=== PATIENT | female | born 1945 ===

== ENCOUNTER 2020-12-05 12:21 | Outpatient (REF) | payer MEDICARE, MEDICAID, SELFPAY ==
--- NOTE | ~2020-12-05 | XR_ITS ---
EXAMINATION: PELVIS AND LUMBAR SPINE X-RAY CLINICAL INFORMATION: Pain COMPARISON: None TECHNIQUE: One view of the pelvis and 3 views of the lumbar spine FINDINGS: Pelvis: Bone alignment is normal. No fracture or dislocation is seen. The joint spaces are normal. Soft tissues are normal. Lumbar spine: There is curvature of the mid lumbar spine to the left and lumbar sacral spine to the right. There is exaggerated lumbar lordosis. Bone alignment is otherwise normal. No fracture or dislocation is seen. There is degenerative disc disease at L5-S1. There is degenerative spondylosis at C3 L3-L4 and L4-L5. There is lower lumbar spine facet arthritis. There is evidence of atherosclerotic disease. XR/XR pelvis 1-2V IMPRESSION: Lumbar spine: Scoliosis and degenerative changes. Pelvis: Unremarkable exam.
--- NOTE | ~2020-12-05 | XR_ITS ---
EXAMINATION: BILATERAL HAND X-RAY CLINICAL INFORMATION: Pain COMPARISON: None TECHNIQUE: 3 views each hand FINDINGS: Left: Bone alignment is normal. No fracture or dislocation is seen. Joint spaces are normal. Soft tissues are normal. Right: Bone alignment is normal. No fracture or dislocation is seen. Joint spaces are normal. Soft tissues are normal. XR/XR hand RT min 3V IMPRESSION: Unremarkable exam.
--- NOTE | ~2020-12-05 | XR_ITS ---
EXAMINATION: BILATERAL HAND X-RAY CLINICAL INFORMATION: Pain COMPARISON: None TECHNIQUE: 3 views each hand FINDINGS: Left: Bone alignment is normal. No fracture or dislocation is seen. Joint spaces are normal. Soft tissues are normal. Right: Bone alignment is normal. No fracture or dislocation is seen. Joint spaces are normal. Soft tissues are normal. XR/XR hand LT min 3V IMPRESSION: Unremarkable exam.
--- NOTE | ~2020-12-05 | XR_ITS ---
EXAMINATION: PELVIS AND LUMBAR SPINE X-RAY CLINICAL INFORMATION: Pain COMPARISON: None TECHNIQUE: One view of the pelvis and 3 views of the lumbar spine FINDINGS: Pelvis: Bone alignment is normal. No fracture or dislocation is seen. The joint spaces are normal. Soft tissues are normal. Lumbar spine: There is curvature of the mid lumbar spine to the left and lumbar sacral spine to the right. There is exaggerated lumbar lordosis. Bone alignment is otherwise normal. No fracture or dislocation is seen. There is degenerative disc disease at L5-S1. There is degenerative spondylosis at C3 L3-L4 and L4-L5. There is lower lumbar spine facet arthritis. There is evidence of atherosclerotic disease. XR/XR lumbar spine 2-3V IMPRESSION: Lumbar spine: Scoliosis and degenerative changes. Pelvis: Unremarkable exam.
[2020-12-05 13:43] LABS: MANUAL DIFF FLAG NO
[2020-12-05 13:56] LABS: Basophils Percent Auto 0.3 % (0-2); Eosinophils Absolute Auto 0.2 X10*3/uL (0.0-0.4); Hematocrit 40.6 % (37-47); Imm Gran Abs Auto 0.01 X10*3/uL (0.00-0.03); Imm Gran Pct Auto 0.2 % (0.0-0.4); Lymphocytes Absolute Auto 1.6 X10*3/uL (1.2-4.9); Lymphocytes Percent Auto 28.3 % (20-40); Mean Corpuscular Hemoglobin 29.5 pg (27.0-33.0); Mean Corpuscular Volume 92.1 fL (80-98); Mean Platelet Volume 12.2 fL (9.4-12.3); Monocytes Absolute Auto 0.5 X10*3/uL (0.1-1.2); Neutrophils Absolute Auto 3.5 X10*3/uL (2.0-8.3); Neutrophils Percent Auto 60.2 % (45-73); Platelet Count 204 X10*3/uL (160-400); Red Blood Count 4.41 X10*6/uL (4.20-5.50); Red Cell Distribution Width 12.6 % (11.0-16.0); White Blood Count 5.8 X10*3/uL (4.8-10.8)
[2020-12-05 14:35] LABS: Alanine Aminotransferase 25 U/L (0-31); Albumin Level 4.2 g/dL (3.5-5.0); Alkaline Phosphatase 61 U/L (39-117); Anion Gap 8 (12-20); Aspartate Amino Transferase 25 U/L (5-31); Bilirubin Total 0.4 mg/dL (0.0-1.0); Blood Urea Nitrogen 11 mg/dL (9-16); C Reactive Protein 0.07 mg/dL (< or = 0.50); Calcium 9.6 mg/dL (8.4-10.2); Carbon Dioxide 32 mmol/L (22-29); Chloride 104 mmol/L (96-108); Estimated Glomerular Filt Rate > 60; Glucose Random 84 mg/dL (60-115); Potassium 4.1 mmol/L (3.3-5.1); Rheumatoid Factor < 15.0 IU/mL (<15.0); Sodium 140 mmol/L (135-145)
[2020-12-05 14:55] LABS: Erythrocyte Sedimentation Rate 7 MM/HR (0-20)
[2020-12-06 13:07] LABS: Cyclic Citrullinated Peptide <16 UNITS
[2020-12-08 15:36] LABS: IgA 202 mg/dL (70-320); IgG 1292 mg/dL (600-1540); IgM 70 mg/dL (50-300)
[2020-12-09 08:12] LABS: PES - Abn Protein Band 1 <0.2 g/dL (NONE DETECTED); Prot Elec - Albumin 4.2 g/dL (3.8-4.8); Prot Elec - Alpha1 0.3 g/dL (0.2-0.3); Prot Elec - Alpha2 0.7 g/dL (0.5-0.9); Prot Elec - Beta 1 0.4 g/dL (0.4-0.6); Prot Elec - Beta 2 0.3 g/dL (0.2-0.5); Prot Elec - Gamma 1.2 g/dL (0.8-1.7); Prot Elec - Total Protein 7.1 g/dL (6.1-8.1)
[2020-12-09 12:56] LABS: Vitamin D 25-OH, D2 <4 ng/mL; Vitamin D 25-OH, D3 31 ng/mL; Vitamin D 25-OH, Total 31 ng/mL (30-100)
== END 2020-12-05 12:22 | disposition home or self-care (01) ==
LOC: HO.LAB 12:21
PROVIDERS: PCP Internal Medicine; Referring Provider Internal Medicine; Visit Provider Student in an Organized Health Care Education/Training Program
DX: M25.50 Pain in unspecified joint (principal); M54.5 Low back pain
CPT/HCPCS: 36415; 72100; 72170; 73130; 80053; 82306; 82784; 84155; 84165; 85025; 85652; 86140; 86200; 86334; 86431; 99202

== ENCOUNTER → 2021-01-16 07:54 | Outpatient (BNVA) | payer MEDICARE, MEDICAID, SELFPAY | PROVIDERS: PCP Internal Medicine; Visit Provider Student in an Organized Health Care Education/Training Program | DX: M25.50 Pain in unspecified joint (principal); D47.2 Monoclonal gammopathy | CPT/HCPCS: 99212 ==

== ENCOUNTER 2021-02-21 14:54 | Outpatient (REF) | payer MEDICARE, MEDICAID, SELFPAY ==
--- NOTE | ~2021-02-21 | US_ITS ---
EXAMINATION: US EXTRACRANIAL CAROTID DUPLEX, BILATERAL CLINICAL INFORMATION: Atrial fibrillation, amnesia COMPARISON: None TECHNIQUE: Real-time ultrasound and Doppler techniques (integrating B-mode 2-D vascular images, Doppler spectral analysis and color-flow Doppler imaging) were utilized to interrogate the extracranial carotid arteries, the vertebral arteries and proximal subclavian arteries bilaterally. The degree of stenosis is determined by criteria similar to NASCET. FINDINGS: Right Side: 1. There is trace calcified atherosclerotic plaque seen in the bifurcation/proximal ICA region. 2. The common carotid artery PSV proximally is 51 cm/s and distally 58 cm/s. 3. The proximal internal carotid artery velocities are 60 cm/s systolic and 20 cm/s diastolic. 4. The proximal external carotid artery PSV is 99 cm/s. 5. The vertebral artery shows antegrade flow. 6. The subclavian artery waveforms are normal. Left Side: 1. There is no appreciable atherosclerotic plaque seen in the bifurcation/proximal ICA region. 2. The common carotid artery PSV proximally is 92 cm/s and distally 66 cm/s. 3. The proximal internal carotid artery velocities are 63 cm/s systolic and 22 cm/s diastolic. 4. The proximal external carotid artery PSV is 68 cm/s. 5. The vertebral artery shows antegrade flow. 6. The subclavian artery waveforms are normal. US/US carotid duplex BI IMPRESSION: 1. RIGHT: Minimal, non-hemodynamically significant stenosis of the proximal right internal carotid artery corresponding to a 0-49% stenosis by velocity criteria. 2. LEFT: Normal left internal carotid artery without atherosclerotic plaque or hemodynamically significant stenosis.
== END 2021-02-21 14:55 | disposition home or self-care (01) ==
LOC: HO.US 14:54
PROVIDERS: Visit Provider Internal Medicine
DX: I48.91 Unspecified atrial fibrillation (principal); R41.3 Other amnesia
CPT/HCPCS: 93880

== ENCOUNTER 2021-03-07 08:00 | Outpatient (REF) | payer MEDICARE, MEDICAID, SELFPAY ==
--- NOTE | ~2021-03-07 | US_ITS ---
EXAMINATION: US RETROPERITONEAL LIMITED (RENAL ONLY) CLINICAL INFORMATION: CKD, atrial fibrillation. COMPARISON: None TECHNIQUE: Routine boateng-scale imaging of kidneys was performed. In addition, Doppler imaging of kidneys was performed, as well. FINDINGS: RIGHT KIDNEY: 11.3 x 4.7 x 5.7 cm (SAG x AP x TRV). The kidney is normal in size, contour, and echogenicity. Renal cortical thickness is normal. No calculi or focal parenchymal lesions. No hydronephrosis. LEFT KIDNEY: 10.9 x 3.8 x 4.8 cm (SAG x AP x TRV). The kidney is normal in size, contour, and echogenicity. Renal cortical thickness is normal. No calculi or focal parenchymal lesions. No hydronephrosis. On Doppler imaging, Right Kidney: The proximal renal artery velocity measures 85 cm/s, mid segment measures 82 cm/s, and distal segment measures 100 cm/s. Renal aortic ratio measures 1.52. Average resistive index average measures 0.73. There is no suspicion for renal artery stenosis. Left Kidney: Peak systolic velocity left renal artery measures 129 cm/s, mid segment measures 107 cm/s, distal segment measures 183 cm/s. Renal aortic ratio measures 2.77. Average resistive index measures 0.73. The findings are equivocal for mild stenosis. Correlation with CT angiography can be performed. The renal veins are bilaterally patent. US/US renal doppler IMPRESSION: Normal renal ultrasound. Equivocal renal Doppler imaging of left kidney. Recommend CT angiogram of kidneys for further evaluation. There is no right renal artery stenosis seen. Normal patent renal veins.
--- NOTE | ~2021-03-07 | US_ITS ---
EXAMINATION: US RETROPERITONEAL LIMITED (RENAL ONLY) CLINICAL INFORMATION: CKD, atrial fibrillation. COMPARISON: None TECHNIQUE: Routine boateng-scale imaging of kidneys was performed. In addition, Doppler imaging of kidneys was performed, as well. FINDINGS: RIGHT KIDNEY: 11.3 x 4.7 x 5.7 cm (SAG x AP x TRV). The kidney is normal in size, contour, and echogenicity. Renal cortical thickness is normal. No calculi or focal parenchymal lesions. No hydronephrosis. LEFT KIDNEY: 10.9 x 3.8 x 4.8 cm (SAG x AP x TRV). The kidney is normal in size, contour, and echogenicity. Renal cortical thickness is normal. No calculi or focal parenchymal lesions. No hydronephrosis. On Doppler imaging, Right Kidney: The proximal renal artery velocity measures 85 cm/s, mid segment measures 82 cm/s, and distal segment measures 100 cm/s. Renal aortic ratio measures 1.52. Average resistive index average measures 0.73. There is no suspicion for renal artery stenosis. Left Kidney: Peak systolic velocity left renal artery measures 129 cm/s, mid segment measures 107 cm/s, distal segment measures 183 cm/s. Renal aortic ratio measures 2.77. Average resistive index measures 0.73. The findings are equivocal for mild stenosis. Correlation with CT angiography can be performed. The renal veins are bilaterally patent. US/US renal BI IMPRESSION: Normal renal ultrasound. Equivocal renal Doppler imaging of left kidney. Recommend CT angiogram of kidneys for further evaluation. There is no right renal artery stenosis seen. Normal patent renal veins.
== END 2021-03-07 08:01 | disposition home or self-care (01) ==
LOC: HO.US 08:00
PROVIDERS: Visit Provider Internal Medicine
DX: I48.91 Unspecified atrial fibrillation (principal); N18.31 Chronic kidney disease, stage 3a
CPT/HCPCS: 76775; 93975

== ENCOUNTER → 2021-07-09 08:56 | Outpatient (BNVA) | payer MEDICARE, SELFPAY | PROVIDERS: PCP Internal Medicine; Visit Provider Internal Medicine Pulmonary Disease | DX: R05.3 Chronic cough (principal); R06.00 Dyspnea, unspecified; R91.8 Other nonspecific abnormal finding of lung field; J84.9 Interstitial pulmonary disease, unspecified | CPT/HCPCS: 99202 ==

== ENCOUNTER 2021-07-11 08:38 | Outpatient (REF) | payer MEDICARE, SELFPAY ==
--- NOTE | 2021-07-11 17:24 | PFT_ITS ---
INDICATION: Dyspnea. SPIROMETRY: The FEV1 to FVC of 82% with an FEV1 of 1.85 L, which is 85% predicted and an FVC of 2.23 L, which is 78% predicted. No significant response to bronchodilators noted. Maximum voluntary ventilation 88% predicted. LUNG VOLUMES: Total lung capacity 82% predicted with expiratory reserve volume of 49% predicted. DIFFUSION CAPACITY: DLCO 73% predicted. COMPARISONS: PFTs from 2015. INTERPRETATION: No obstructive nor restrictive ventilatory defects identified. No significant response to bronchodilators noted. Normal maximum voluntary ventilation. Lung volumes are low normal. The patient does have a mild diffusion impairment. When compared to previous PFTs in 2016, the trend decrease in the FVC, significant decrease in the FEV1, trend decrease in the total lung capacity, and a significant decrease in the diffusion capacity. Clinical correlation warranted. MD SAEED Turner/MODKristal / [id number]
== END 2021-07-11 08:39 | disposition home or self-care (01) ==
LOC: HO.RESP 08:38
PROVIDERS: PCP Internal Medicine; Visit Provider Internal Medicine Pulmonary Disease
DX: R06.00 Dyspnea, unspecified (principal)
CPT/HCPCS: 94060; 94727; 94729

== ENCOUNTER 2021-07-18 10:54 | Outpatient (REF) | payer MEDICARE, SELFPAY ==
[2021-07-18 12:19] LABS: Alanine Aminotransferase 20 U/L (0-31); Albumin Level 4.1 g/dL (3.5-5.0); Alkaline Phosphatase 76 U/L (39-117); Anion Gap 10 (12-20); Aspartate Amino Transferase 22 U/L (5-31); Bilirubin Total 0.6 mg/dL (0.0-1.0); Blood Urea Nitrogen 13 mg/dL (9-16); Calcium 9.7 mg/dL (8.4-10.2); Carbon Dioxide 30 mmol/L (22-29); Chloride 105 mmol/L (96-108); Estimated Glomerular Filt Rate > 60; Glucose Random 89 mg/dL (60-115); Potassium 4.4 mmol/L (3.3-5.1); Sodium 141 mmol/L (135-145)
[2021-07-18 12:24] LABS: Thyroid Stimulating Hormone 1.76 uIU/mL (0.32-4.0)
[2021-07-18 12:36] LABS: Folate 12.4 ng/mL (> or = 4.0); Vitamin B12 423 pg/mL (200-900)
== END 2021-07-18 10:55 | disposition home or self-care (01) ==
LOC: HO.LAB 10:54
PROVIDERS: PCP Internal Medicine; Visit Provider Psychiatry & Neurology Neurology
DX: G31.84 Mild cognitive impairment of uncertain or unknown etiology (principal)
CPT/HCPCS: 36415; 80053; 82607; 82746; 84436; 84443

== ENCOUNTER 2021-08-01 09:31 | Outpatient (REF) | payer MEDICARE, SELFPAY ==
--- NOTE | ~2021-08-01 | CT_ITS ---
EXAMINATION: CT CHEST WITHOUT CONTRAST CLINICAL INFORMATION: Interstitial lung disease COMPARISON: Previous chest x-ray most recent September [address] March 2016 and abdominal and pelvic CT November 2017 TECHNIQUE: Multidetector volumetric CT imaging of the chest was done. Axial MIP volume rendering provided. Sagittal and coronal reformatted images were obtained. This CT examination was performed using dose optimization techniques as appropriate, variously including the following: *Automated exposure control *Adjustment of mA and/or kV according to patient size (this includes techniques or standardized protocols for targeted exams where dose is matched to indication/reason for exam; i.e. extremities or head) *Use of iterative reconstruction technique DLP: 137 mGy-cm FINDINGS: LUNGS: Exam is limited due to artifact from respiratory motion. There is biapical pleural and parenchymal scarring. There is a 3 mm peripheral or subpleural right upper lobe nodule adjacent to the minor fissure axial image 76 series 11 that is stable. There is a 4 mm left upper lobe nodule axial image 80 series 11 that is stable. There is a 4 mm calcified right lower lobe nodule axial image 88 series 11 that is stable. There is a right middle lobe nodule axial image 105 series 11 that is stable. There is a 5 mm right lower lobe nodule axial image 107 series 11 that is stable. There is scarring or subsegmental atelectasis at the lung bases. No evidence of interstitial lung disease, emphysema or bronchiectasis is seen. No endobronchial or endotracheal lesion is seen. MEDIASTINUM: The heart does not appear enlarged. The thoracic aorta is calcified. The ascending thoracic aorta is upper normal in size measuring 4 cm.. There is coronary artery calcification. There is no pericardial effusion. There are no enlarged hilar or mediastinal lymph nodes. PLEURA: There is no pleural effusion. No pleural mass or thickening. AXILLA: No lymphadenopathy. UPPER ABDOMEN: There is a small 7 mm low-attenuation lesion high in the dome of the right lobe of the liver axial image 39 series 8. This is unchanged from CT of the abdomen and pelvis November 2017 and probably represents a cyst. Images through the upper abdomen are otherwise unremarkable. OSSEOUS STRUCTURES: There are degenerative changes of the spine. There is mild curvature of the lower thoracic and upper lumbar spine to the left. CT/CT chest wo con IMPRESSION: Limited exam due to artifact from respiratory motion. Stable small calcified and noncalcified pulmonary nodules from November 2017. Subsegmental atelectasis at the lung bases. No evidence of interstitial lung disease.
== END 2021-08-01 09:32 | disposition home or self-care (01) ==
LOC: HO.CT 09:31
PROVIDERS: PCP Internal Medicine; Visit Provider Internal Medicine Pulmonary Disease
DX: J84.9 Interstitial pulmonary disease, unspecified (principal)
CPT/HCPCS: 71250

== ENCOUNTER → 2021-08-05 08:50 | Outpatient (BNVA) | payer MEDICARE, SELFPAY | PROVIDERS: PCP Internal Medicine; Visit Provider Internal Medicine Pulmonary Disease | DX: R06.00 Dyspnea, unspecified (principal); R05.3 Chronic cough | CPT/HCPCS: 99212 ==

== ENCOUNTER 2021-08-12 01:15 | Emergency (ER) | payer MEDICARE, MEDICAID, SELFPAY ==
--- NOTE | ~2021-08-12 | XR_ITS ---
EXAMINATION: XR CHEST CLINICAL INFORMATION: Shortness of breath COMPARISON: 09/04/2019 TECHNIQUE: 2 views of the chest were obtained. FINDINGS: The lungs are well expanded. No edema or effusion. Minimal opacity seen at the peripheral left base.. No pneumothorax. The cardiomediastinal silhouette is within normal limits of size with a calcified aorta. No acute osseous abnormality. XR/XR chest 2V IMPRESSION: Minimal peripheral left basilar opacity which could be atelectasis or pneumonia.
[2021-08-12 01:18] VITALS: BP 194/85; PULSE 85; RESP 22; TEMP 36.8; O2SAT 97; BMI 26.7
--- NOTE | 2021-08-12 01:53 | ECG_ITS ---
Test Reason : SOB Blood Pressure : / mmHG Vent. Rate : 078 BPM Atrial Rate : 078 BPM P-R Int : 188 ms QRS Dur : 090 ms QT Int : 434 ms P-R-T Axes : 061 039 054 degrees QTc Int : 494 ms Normal sinus rhythm Possible Left atrial enlargement RSR' or QR pattern in V1 suggests right ventricular conduction delay Abnormal ECG When compared with ECG of 04-SEP-2019 17:15, No significant change was found Referred By: Jazmin Apple Electronically Signed By:GREG HOUSTON MD
--- NOTE | 2021-08-12 01:54 | ED.SOB ---
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 Mode of arrival: ambulatory Limitations: no limitations History of Present Illness MD elicited complaint: shortness of breath, cough and asthma attack Pertinent past history: asthma and pneumonia Onset (ago): day(s) (4) Context: other (treated with zpak 08/11 by process development technician - took her first dose) Timing: progressively worsening Severity: moderate Exacerbating factors: exertion and coughing Relieving factors: bronchodilators Known history of: asthma Associated symptoms: fever, cough and wheezing Treatment prior to arrival: bronchodilator and other (antibiotic) Related Data Home Medications Medication Instructions Recorded Confirmed aspirin 81 mg tablet,delayed 81 mg PO DAILY 12/05/20 07/31/21 release (Enteric Coated Aspirin) cholecalciferol (vitamin D3) 25 25 mcg PO DAILY 12/05/20 07/31/21 mcg (1,000 unit) capsule diclofenac sodium 75 mg 75 mg PO BID 12/05/20 07/31/21 tablet,delayed release metoprolol succinate 50 mg 50 mg PO DAILY 12/05/20 07/31/21 tablet,extended release 24 hr apixaban 5 mg tablet (Eliquis) 5 mg PO BID 01/30/21 07/31/21 Previous Rx's Medication Instructions Recorded fluticasone furoate 200 1 inh INHALATION DAILY 30 Days #1 08/05/21 mcg-vilanterol 25 mcg/dose ea inhalation powder (Breo Ellipta) ipratropium 0.5 mg-albuterol 3 mg 3 ml INHALATION Q4-6H PRN 30 Days 08/05/21 (2.5 mg base)/3 mL nebulization #270 ml soln azithromycin 250 mg tablet See Rx Instructions PO .COMPLEX 5 08/11/21 Days #6 tab albuterol sulfate 2.5 mg (3 mL) INHALATION Q4-6H PRN 08/12/21 #75 ml amoxicillin 875 mg-potassium 1 tab PO BID #14 tab 08/12/21 clavulanate 125 mg tablet (Augmentin) codeine 6.3 mg-guaifenesin 100 8 ml PO Q6H PRN #473 ml 08/12/21 mg/5 mL oral liquid famotidine 20 mg tablet (Pepcid) 20 mg PO DAILY 10 Days #10 tab 08/12/21 prednisone 20 mg tablet 40 mg PO DAILY 5 Days #10 tab 08/12/21 Allergies Allergy/AdvReac Type Severity Reaction Status Date / Time acetaminophen [From Percocet] Allergy Intermediate Agitated Verified 08/05/21 09:05 oxycodone [From Percocet] Allergy Intermediate Agitated Verified 08/05/21 09:05 Review of Systems Review of Systems: Constitutional : pos Fever, pos Chills, pos fatigue ENT/Mouth : No Hoarseness, No sore throat, No Rhinorrhea Eyes: No Redness, No Discharge, No Vision Changes Cardiovascular : No Chest Pain, positive SOB, positive Dyspnea on Exertion, No Edema Respiratory : positive Cough, No Sputum, positive Wheezing, Gastrointestinal : No Nausea, No Vomiting, No Diarrhea, No abdominal Pain Genitourinary : No Dysuria, No Hematuria Musculoskeletal : No joint pain, No Myalgias Skin : No rash Neuro : No Weakness, No Numbness, No Headache Psych : No anxiety, depression Heme/Lymph: No Bruising, No Bleeding Endocrine : No Polyuria, No Polydipsia All other systems reviewed and are negative [facility] Past Medical History Attestation statement: The following information was validated with the patient. Medical History Abdominal hyperesthesia Dyspepsia GERD (gastroesophageal reflux disease) HTN (hypertension) IBS (irritable bowel syndrome) Osteoarthritis of lumbar spine Scoliosis Surgical History H/O bilateral breast reduction surgery H/O section H/O oophorectomy Hx of hysterectomy Family History Family History Son HTN (hypertension) Social History Social History (Updated 08/12/21 @ 02:09 by Jazmin Apple DO) Alcohol intake: never Patient Tobacco Use Status: Never used Tobacco Advance Directives: No Physical Exam Vital Signs: Vital Signs: Last Vital Signs Temp 98.2 F 08/12/21 01:18 Pulse 92 08/12/21 02:58 Resp 17 08/12/21 02:58 BP 174/77 H 08/12/21 02:58 Pulse Ox 94 08/12/21 02:58 Body Mass Index 26.7 Appearance: Alert. Oriented X3. No acute distress. Eyes: Pupils equal, round and reactive to light. ENT: Pharynx normal. Neck: Normal inspection. Neck supple. CVS: Normal heart rate and rhythm. Pulses normal. Respiratory: No respiratory distress. Breath sounds decreased with diffuse mild end exp wheezes noted Abdomen: Soft and non-tender. Skin: Skin warm and dry. Normal skin color. Normal skin turgor. Extremities: No lower extremity edema. No calf ttp Neuro: Oriented X 3. No motor deficit. No sensory deficit. Course Course Course Narrative: overall lung sounds improved - repeat 2.5mg neb ordered, cough is bothering her can tolerate codeine will try robitussing AC no hypoxia feels better wants to go home I did offer admission but she refused MDM - SOB/Dyspnea MDM Narrative Medical decision making narrative: 75 yo female with hx of ILD, arthralgia c/o 4 days of cough, fevers, weakness - started on zpak yesterday by her process development technician - states she has been taking one neb treatment a day but ran out of her alb liquid yesterday, is not on steroids. At this time will obtain labs, CXR shows likely LLL pneumonia - IV ceftriaxone, cultures, lactic acid, PCR panel of flu/rsv/covid. Dispo per results and improvement Lab Data Result diagrams: 08/12/21 02:27 08/12/21 02:27 Labs: Lab Results 08/12/21 08/12/21 08/12/21 Range/Units 02:27 02:27 02:27 WBC 3.9 L (4.8-10.8) X10*3/uL RBC 4.43 (4.20-5.50) X10*6/uL Hgb 13.2 (12.0-16.0) g/dl Hct 41.4 (37.0-47.0) % MCV 93.5 (80.0-98.0) fL MCH 29.8 (27.0-33.0) pg MCHC 31.9 (31.0-35.0) g/dl RDW 12.8 (11.0-16.0) % Plt Count 185 (160-400) X10*3/uL MPV 11.3 (9.4-12.3) fL Immature Gran % (Auto) 0.3 (0.0-0.4) % Neut % (Auto) 58.7 (45-73) % Lymph % (Auto) 19.8 L (20-40) % [place] % (Auto) 14.8 H (2-11) % Eos % (Auto) 6.1 H (0-4) % Baso % (Auto) 0.3 (0-2) % Lymph # (Auto) 0.8 L (1.2-4.9) X10*3/uL [place] # (Auto) 0.6 (0.1-1.2) X10*3/uL Eos # (Auto) 0.2 (0.0-0.4) X10*3/uL Baso # (Auto) 0.0 (0.0-0.2) X10*3/uL Abs Immat Gran (auto) 0.01 (0.00-0.03) X10*3/uL Absolute Neuts (auto) 2.3 (2.0-8.3) x10*3/uL Absolute Nucleated RBC 0.000 (0.0-0.012) X10*3/uL Nucleated RBC % (auto) 0.0 (0.0-0.2) /100WBC Sodium 141 (135-145) mmol/L Potassium 4.3 (3.3-5.1) mmol/L Chloride 107 (96-108) mmol/L Carbon Dioxide 25 (22-29) mmol/L Anion Gap 13 (12-20) BUN 13 (9-16) mg/dL Creatinine 0.73 (0.5-1.4) mg/dL Estim Creat Clear Calc 66.2 Estimated GFR > 60 Random Glucose 94 (60-115) mg/dL Lactic Acid (0.5-2.0) mmol/L Calcium 9.0 (8.4-10.2) mg/dL Total Bilirubin 0.3 (0.0-1.0) mg/dL AST 33 H (5-31) U/L ALT 26 (0-31) U/L Alkaline Phosphatase 77 (39-117) U/L Total Protein 7.5 (6.5-8.0) g/dL Albumin 4.2 (3.5-5.0) g/dL Influenza Type A (PCR) NEGATIVE (Negative) Influenza Type B (PCR) NEGATIVE (Negative) RSV RNA Qual (PCR) NEGATIVE (Negative) SARS-CoV-2 RNA (RT-PCR) NEGATIVE (Negative) 08/12/21 Range/Units 02:27 WBC (4.8-10.8) X10*3/uL RBC (4.20-5.50) X10*6/uL Hgb (12.0-16.0) g/dl Hct (37.0-47.0) % MCV (80.0-98.0) fL MCH (27.0-33.0) pg MCHC (31.0-35.0) g/dl RDW (11.0-16.0) % Plt Count (160-400) X10*3/uL MPV (9.4-12.3) fL Immature Gran % (Auto) (0.0-0.4) % Neut % (Auto) (45-73) % Lymph % (Auto) (20-40) % [place] % (Auto) (2-11) % Eos % (Auto) (0-4) % Baso % (Auto) (0-2) % Lymph # (Auto) (1.2-4.9) X10*3/uL [place] # (Auto) (0.1-1.2) X10*3/uL Eos # (Auto) (0.0-0.4) X10*3/uL Baso # (Auto) (0.0-0.2) X10*3/uL Abs Immat Gran (auto) (0.00-0.03) X10*3/uL Absolute Neuts (auto) (2.0-8.3) x10*3/uL Absolute Nucleated RBC (0.0-0.012) X10*3/uL Nucleated RBC % (auto) (0.0-0.2) /100WBC Sodium (135-145) mmol/L Potassium (3.3-5.1) mmol/L Chloride (96-108) mmol/L Carbon Dioxide (22-29) mmol/L Anion Gap (12-20) BUN (9-16) mg/dL Creatinine (0.5-1.4) mg/dL Estim Creat Clear Calc Estimated GFR Random Glucose (60-115) mg/dL Lactic Acid 0.8 (0.5-2.0) mmol/L Calcium (8.4-10.2) mg/dL Total Bilirubin (0.0-1.0) mg/dL AST (5-31) U/L ALT (0-31) U/L Alkaline Phosphatase (39-117) U/L Total Protein (6.5-8.0) g/dL Albumin (3.5-5.0) g/dL Influenza Type A (PCR) (Negative) Influenza Type B (PCR) (Negative) RSV RNA Qual (PCR) (Negative) SARS-CoV-2 RNA (RT-PCR) (Negative) ECG Data Attestation: I personally reviewed and interpreted this ECG as follows: ECG interpretation date: 08/12/21 ECG interpretation time: 02:26 Interpretation: Rate: 78 Rhythm: NSR [place]: normal Normal P waves. Normal GISSELL. Normal QRS complex. ST T wave : no DION, normal qTC: normal prior studies: no acute ischemia The study has been interpreted contemporaneously by me. . Discharge Plan Discharge Clinical Impression: Asthma with exacerbation Qualifiers: Asthma severity: moderate Asthma persistence: persistent Qualified Code(s): J45.41 - Moderate persistent asthma with (acute) exacerbation Community acquired pneumonia Qualifiers: Laterality: left Lung location: lower lobe of lung Qualified Code(s): J18.9 - Pneumonia, unspecified organism Patient Disposition: Home, Self-Care Instructions: Asthma (ED), Pneumonia (ED) Additional Instructions: return to ED for any worsening symptoms or concerns ALSO CONTINUE ZPAK Prescriptions: New codeine-guaifenesin 6.3-100 mg/5 mL liquid 8 ml PO Q6H PRN (Reason: cough) Qty: 473 RF: 0 albuterol sulfate 2.5 mg /3 mL (0.083 %) solution for nebulization 2.5 mg inhalation Q4-6H PRN (Reason: bronchospasm) Qty: 75 RF: 0 prednisone 20 mg tablet 40 mg PO DAILY 5 Days Qty: 10 RF: 0 famotidine [Pepcid] 20 mg tablet 20 mg PO DAILY 10 Days Qty: 10 RF: 0 amoxicillin-pot clavulanate [Augmentin] 875-125 mg tablet 1 tab PO BID Qty: 14 RF: 0 No Action azithromycin 250 mg tablet See Rx Instructions PO .COMPLEX 5 Days Qty: 6 RF: 0 Eliquis 5 mg Tablet 5 mg PO BID RF: 0 cholecalciferol (vitamin D3) 25 mcg (1,000 unit) capsule 25 mcg PO DAILY RF: 0 diclofenac sodium 75 mg tablet,delayed release (DR/EC) 75 mg PO BID RF: 0 metoprolol succinate 50 mg tablet extended release 24 hr 50 mg PO DAILY RF: 0 aspirin [Enteric Coated Aspirin] 81 mg tablet,delayed release (DR/EC) 81 mg PO DAILY RF: 0 ipratropium-albuterol 0.5 mg-3 mg(2.5 mg base)/3 mL solution for nebulization 3 ml inhalation Q4-6H PRN (Reason: wheezing) 30 Days Qty: 270 RF: 6 Breo Ellipta 200-25 mcg/dose blister with device 1 inh inhalation DAILY 30 Days Qty: 1 RF: 6 Referrals: Yeny Calderon MD [Primary Care Provider] - 2 days (if not better) Print Language: Omani
[2021-08-12] MEDS: Albuterol Sulfate (0.083%) 2.5 MG/3 ML VIAL.NEB 5 MG INHALE (02:23)
[2021-08-12 02:27] VITALS: PULSE 85; O2SAT 97
[2021-08-12 02:33] LABS: MANUAL DIFF FLAG NO
[2021-08-12 02:34] LABS: Basophils Percent Auto 0.3 % (0-2); Eosinophils Absolute Auto 0.2 X10*3/uL (0.0-0.4); Eosinophils Percent Auto 6.1 % (0-4); Hematocrit 41.4 % (37.0-47.0); Hemoglobin 13.2 g/dl (12.0-16.0); Imm Gran Abs Auto 0.01 X10*3/uL (0.00-0.03); Imm Gran Pct Auto 0.3 % (0.0-0.4); Lymphocytes Absolute Auto 0.8 X10*3/uL (1.2-4.9); Lymphocytes Percent Auto 19.8 % (20-40); Mean Corpuscular HGB Conc 31.9 g/dl (31.0-35.0); Mean Corpuscular Hemoglobin 29.8 pg (27.0-33.0); Mean Corpuscular Volume 93.5 fL (80.0-98.0); Mean Platelet Volume 11.3 fL (9.4-12.3); Monocytes Absolute Auto 0.6 X10*3/uL (0.1-1.2); Monocytes Percent Auto 14.8 % (2-11); Neutrophils Absolute Auto 2.3 x10*3/uL (2.0-8.3); Neutrophils Percent Auto 58.7 % (45-73); Platelet Count 185 X10*3/uL (160-400); Red Blood Count 4.43 X10*6/uL (4.20-5.50); Red Cell Distribution Width 12.8 % (11.0-16.0); White Blood Count 3.9 X10*3/uL (4.8-10.8)
[2021-08-12] MEDS: cefTRIAXone sodium 1 GM in 0.9 % Sodium Chloride 50 ML IV (02:37)
[2021-08-12] MEDS: methylPREDNISolone Sod Succ 125 MG/2 ML VIAL IVPUSH (02:38)
[2021-08-12] MEDS: Benzonatate 100 MG CAPSULE PO (02:38)
[2021-08-12] MEDS: 0.9 % Sodium Chloride 500 ML IV (02:39)
--- NOTE | 2021-08-12 02:46 | PC.NURSE ---
first set of BC obtained, IV abx running while obtaining second set of BC
[2021-08-12 02:58] VITALS: BP 174/77; PULSE 92; RESP 17; O2SAT 94
[2021-08-12 02:58] LABS: Lactic Acid 0.8 mmol/L (0.5-2.0)
[2021-08-12 03:09] LABS: Alanine Aminotransferase 26 U/L (0-31); Albumin Level 4.2 g/dL (3.5-5.0); Alkaline Phosphatase 77 U/L (39-117); Anion Gap 13 (12-20); Aspartate Amino Transferase 33 U/L (5-31); Bilirubin Total 0.3 mg/dL (0.0-1.0); Blood Urea Nitrogen 13 mg/dL (9-16); Carbon Dioxide 25 mmol/L (22-29); Chloride 107 mmol/L (96-108); Creatinine Clr Calc Pharmacy 66.2; Estimated Glomerular Filt Rate > 60; Glucose Random 94 mg/dL (60-115); Potassium 4.3 mmol/L (3.3-5.1); Sodium 141 mmol/L (135-145); Total Protein 7.5 g/dL (6.5-8.0)
[2021-08-12 03:12] LABS: Influenza A PCR NEGATIVE (Negative); Influenza B PCR NEGATIVE (Negative); Resp Syncy Virus RNA Qual PCR NEGATIVE (Negative); SARS COV2 PCR INHOUSE NEGATIVE (Negative)
[2021-08-12] MEDS: Albuterol Sulfate (0.083%) 2.5 MG/3 ML VIAL.NEB INHALE (03:38)
[2021-08-12 03:39] VITALS: O2SAT 97
[2021-08-12] MEDS: guaiFEN/Codeine SF 200/20/10ML 10 ML LIQUID 5 ML PO (03:47)
== END 2021-08-12 05:02 | disposition home or self-care (01) ==
PROVIDERS: Emergency Provider Emergency Medicine; PCP Internal Medicine
DX: J45.41 Moderate persistent asthma with (acute) exacerbation (principal); J18.9 Pneumonia, unspecified organism; I48.91 Unspecified atrial fibrillation; Z20.822 Contact with and (suspected) exposure to COVID-19
CPT/HCPCS: 0241U; 36415; 71046; 80053; 83605; 85025; 87040; 93005; 94640; 96365; 96375; 99284; J0696; J2930

== ENCOUNTER 2021-08-13 10:22 | Outpatient (REF) | payer MEDICARE, MEDICAID, SELFPAY ==
--- NOTE | ~2021-08-13 | MR_ITS ---
MRI OF THE BRAIN WITHOUT IV CONTRAST INDICATION: Amnesia. COMPARISON: None available. TECHNIQUE: Multiplanar multisequence MR imaging of the brain was obtained without IV contrast. FINDINGS: There is a small acute infarct within the right cerebellar hemisphere. There are extensive T2 signal changes throughout the supratentorial white matter, possibly advanced chronic microangiopathy though nonspecific. Chronic lacunar infarct within the right jose j. No mass effect and no hemorrhagic transformation. There is no hydrocephalus, extra-axial surface collection, or herniation. The major flow voids at the skull base are preserved. The midline structures are normal. The cerebellar tonsils are normally positioned. The craniocervical junction is normal. Osseous marrow signal intensity is homogenous. The visualized soft tissues are unremarkable. MR/MR head/brain wo con IMPRESSION: - There is a small acute infarct within the right cerebellar hemisphere. No mass effect and no hemorrhagic transformation. - There are extensive T2 signal changes throughout the supratentorial white matter, possibly advanced chronic microangiopathy though nonspecific. Chronic lacunar infarct within the right jose j. Findings discussed with Dr. Quiñonez at 11:41 AM on August 13, 2021. The patient will be transferred directly to the emergency department following this exam.
== END 2021-08-13 10:23 | disposition home or self-care (01) ==
LOC: HO.MRI 10:22
PROVIDERS: Visit Provider Internal Medicine
DX: R41.3 Other amnesia (principal)
CPT/HCPCS: 70551

== ENCOUNTER 2021-08-13 12:07 | Inpatient (IN) | payer MEDICARE, MEDICAID, SELFPAY ==
--- NOTE | ~2021-08-13 | CT_ITS ---
EXAMINATION: CT ANGIOGRAM OF THE HEAD CT ANGIOGRAM OF THE NECK CLINICAL INFORMATION: Stroke. COMPARISON: MRI scan of the brain 08/13/2021. CT scan of the chest 08/01/2021. TECHNIQUE: Test bolus series followed by intravenous administration 70 mL of Omnipaque 350. Helical imaging was performed in the axial plane from the mediastinum to the skull vertex. A delayed CT scan of the head was obtained. The degree of stenosis is based off NASCET criteria. The data was processed at the computer technologist workstation for generation of MIP images. Three-dimensional volume rendered reformatted images were also generated at an offline 3-D workstation. This CT examination was performed using dose optimization techniques as appropriate, variously including the following: *Automated exposure control *Adjustment of mA and/or kV according to patient size (this includes techniques or standardized protocols for targeted exams where dose is matched to indication/reason for exam; i.e. extremities or head) *Use of iterative reconstruction technique DLP: 1553 mGy-cm. FINDINGS: CT Head: There is no evidence of acute intracranial hemorrhage or territorial infarction. No abnormal mass-effect or midline shift is seen. Waterman to white matter differentiation is well preserved. No extra-axial fluid collections are identified. There is no abnormal enhancement. There is mild commensurate prominence the ventricles and sulci consistent with diffuse volume loss. There are relatively extensive areas of low-attenuation the periventricular and subcortical white matter, corresponding to hyperintense FLAIR signal in the prior study and consistent with chronic microvascular ischemic changes. There is an area of low-attenuation in the right cerebellar hemisphere posterolaterally, corresponding to the acute infarct seen on the MRI scan. A chronic infarct is redemonstrated in the right jose j. The osseous structures and soft tissues are normal the mastoid air cells are well-aerated. There is mild mucoperiosteal thickening in the left ethmoid and maxillary sinuses. CTA Neck: There is a four-vessel aortic arch, and the left vertebral artery arises directly off the aorta. There are atheromatous calcifications of the aorta and at the origins of the bilateral subclavian arteries, which are patent. The common carotid arteries are patent bilaterally. The right common carotid artery is slightly tortuous. There are no significant atheromatous calcifications of the carotid bifurcations. The cervical internal carotid arteries are patent bilaterally. The distal left cervical internal carotid artery is tortuous and mildly ectatic without a discrete aneurysm. The origins of the vertebral arteries are seen bilaterally. Both vertebral arteries are patent throughout their cervical course extending intradurally. The right vertebral artery is dominant Nonvascular: There is an area of hazy opacity in the right upper lobe, which may be atelectatic, and was not visualized on prior imaging. Multiple small nodules are better visualized on the prior study. There is biapical pleural parenchymal scarring. CTA Head: The intracranial internal carotid arteries and their bifurcations appear normal. The middle and anterior cerebral arteries bilaterally demonstrate normal caliber with no evidence of focal stenosis, aneurysm or vascular malformation. There is mild ectasia of an area of the right pericallosal artery (image 50/190, series 13), without a focal aneurysm. There is normal arborization of the middle cerebral artery branches. The anterior communicating artery is normal. In the posterior circulation, the left vertebral artery is dominant. The vertebral arteries intradurally have uniform caliber. The basilar artery appears normal. There are origins of the posterior cerebral arteries bilaterally. There is decreased flow from the distal right P2/P3 segments of the right posterior cerebral artery. The venous sinuses opacify normally. CT/CT angio head neck stroke IMPRESSION: CT head and neck: 1. There are scattered areas of low-attenuation in the periventricular and subcortical white matter, consistent with chronic microvascular ischemic changes. More focal infarcts are seen in the right jose j and right cerebellum. There are no large territorial infarcts or areas of acute hemorrhage. 2. There are no masses or areas of abnormal enhancement. 3. There is a patchy opacity in the right upper lobe, not seen on the most recent scan of the chest, and may be atelectatic. The previously described lung nodules are better demonstrated on the prior study. CTA head and neck: 1. There is a four-vessel aortic arch, a normal variant. 2. There are no flow-limiting stenoses or significant atheromatous calcification. 3. Intracranially there are no aneurysms or vascular malformations. 4. There are origins the bilateral posterior cerebral arteries. There is cutoff of the distal right posterior P2/P3 segments of the right posterior cerebral artery. The left posterior cerebral artery there is patent. This critical result was discussed with Kyaw Garcia MD by telephone on 08/14/2021 at 9:15 AM and it was ascertained that the content and urgency of the report was understood at the time of direct communication.
[2021-08-13 12:11] VITALS: BP 158/80; PULSE 98; RESP 18; TEMP 36.7; O2SAT 98; BMI 26.7
--- NOTE | 2021-08-13 12:11 | ECG_ITS ---
Test Reason : general medicine Blood Pressure : / mmHG Vent. Rate : 089 BPM Atrial Rate : 089 BPM P-R Int : 174 ms QRS Dur : 092 ms QT Int : 400 ms P-R-T Axes : 051 016 032 degrees QTc Int : 486 ms Normal sinus rhythm Possible Left atrial enlargement Incomplete right bundle branch block Borderline ECG When compared with ECG of 12-AUG-2021 02:21, No significant change was found Referred By: Bony Silva Electronically Signed By:GREG HOUSTON MD
--- NOTE | 2021-08-13 12:15 | ED_ITS ---
HPI - General Adult General Chief complaint: General Medical Stated complaint: Stroke? Time Seen by Provider: 08/13/21 12:11 Source: patient Mode of arrival: ambulatory Limitations: no limitations History of Present Illness HPI narrative: Sent to the Ed because abnormal outpatient MRI ,ordered by PCP because memory loss,MRI showed small cute infart Rt cerebellr hemisphere,sent to the Ed for eval Onset (ago): unknown Location: head Radiation: non-radiation Severity: moderate Exacerbating factors: none Associated symptoms: denies other symptoms Related Data Home Medications Medication Instructions Recorded Confirmed aspirin 81 mg tablet,delayed 81 mg PO DAILY 12/05/20 07/31/21 release (Enteric Coated Aspirin) cholecalciferol (vitamin D3) 25 25 mcg PO DAILY 12/05/20 07/31/21 mcg (1,000 unit) capsule diclofenac sodium 75 mg 75 mg PO BID 12/05/20 07/31/21 tablet,delayed release metoprolol succinate 50 mg 50 mg PO DAILY 12/05/20 07/31/21 tablet,extended release 24 hr apixaban 5 mg tablet (Eliquis) 5 mg PO BID 01/30/21 07/31/21 Previous Rx's Medication Instructions Recorded fluticasone furoate 200 1 inh INHALATION DAILY 30 Days #1 08/05/21 mcg-vilanterol 25 mcg/dose ea inhalation powder (Breo Ellipta) ipratropium 0.5 mg-albuterol 3 mg 3 ml INHALATION Q4-6H PRN 30 Days 08/05/21 (2.5 mg base)/3 mL nebulization #270 ml soln azithromycin 250 mg tablet See Rx Instructions PO .COMPLEX 5 08/11/21 Days #6 tab albuterol sulfate 2.5 mg (3 mL) INHALATION Q4-6H PRN 08/12/21 #75 ml amoxicillin 875 mg-potassium 1 tab PO BID #14 tab 08/12/21 clavulanate 125 mg tablet (Augmentin) codeine 6.3 mg-guaifenesin 100 8 ml PO Q6H PRN #473 ml 08/12/21 mg/5 mL oral liquid famotidine 20 mg tablet (Pepcid) 20 mg PO DAILY 10 Days #10 tab 08/12/21 prednisone 20 mg tablet 40 mg PO DAILY 5 Days #10 tab 08/12/21 Allergies Allergy/AdvReac Type Severity Reaction Status Date / Time acetaminophen [From Percocet] Allergy Intermediate Agitated Verified 08/05/21 09:05 oxycodone [From Percocet] Allergy Intermediate Agitated Verified 08/05/21 09:05 Review of Systems Review of Systems: Yes all other systems are reviewed and are negative Constitutional: Constitutional: Denies weakness Cardiovascular: Cardiovascular: Denies lightheadedness and Denies Loss of Consciousness Respiratory: Respiratory: Denies no additional respiratory complaints Gastrointestinal: Gastrointestinal: Denies diarrhea Genitourinary: Genitourinary: Reports no additional female genitourinary complaints Neurologic: Denies convulsions, Denies seizure-like activity, Denies Sensory deficit (Neuro) and Denies weakness Psychiatric: Psychiatric: Reports no additional psychiatric complaints [facility] Past Medical History Medical History Abdominal hyperesthesia Dyspepsia GERD (gastroesophageal reflux disease) HTN (hypertension) IBS (irritable bowel syndrome) Osteoarthritis of lumbar spine Scoliosis Surgical History H/O bilateral breast reduction surgery H/O section H/O oophorectomy Hx of hysterectomy Family History Family History Son HTN (hypertension) Social History Social History (Updated 08/12/21 @ 02:09 by Jazmin Apple DO) Alcohol intake: never Patient Tobacco Use Status: Never used Tobacco Advance Directives: No Advance Directives Information Provided: Yes Physical Exam Vital Signs: Vital Signs: Last Vital Signs Temp 98.2 F 08/13/21 14:24 Pulse 81 08/13/21 14:24 Resp 15 08/13/21 14:24 BP 169/111 H 08/13/21 14:24 Pulse Ox 98 08/13/21 14:24 Body Mass Index 26.7 Const: General: cooperative, healthy appearing, comfortable and well developed Orientation/consciousness: oriented to person, oriented to place, oriented to time and patient oriented x3 HENMT: Head: Yes normal to inspection Eyes: General: appearance normal, both eyes and all related structures Visual Yarbrough: normal visual yarbrough by confrontation Alignment and Position: alignment normal EOM: EOMs intact bilaterally Neck: Neck: Yes full ROM and Yes no meningeal signs Thyroid: Thyroid normal Chest: Chest palpation & inspection: normal inspection of the chest Resp: Effort & Inspection: normal respiratory effort Auscultation: clear to auscultation bilaterally Cardio: Jugular venous distension: no JVD Rate: regular rate Rhythm: regular rhythm Heart sounds: S1 normal heart sound present GI: Inspection: Yes normal to inspection Palpation (GI): Soft to palpation Percussion: Yes normal to percussion Auscultation: normal bowel sounds Neuro: General: oriented to person, oriented to place, oriented to time, patient oriented x3, gait normal, tone normal, moves all extremities, Normal light touch and pain sensation, no meningeal signs, no focal motor deficits and CN's II-XI intact bilaterally Sensory Exam: No Sensory deficit (Neuro) Course Course Course Narrative: The case was reviewed with a neurologist in Dr. Martinez , the patient has an acute cerebellar stroke, will admit for further workup telemetry/ echo Medical Decision Making MDM Narrative Medical decision making narrative: Patient has an acute cerebellar stroke by MRI neurologically she is intact, we will get neurologic consult will get an EKG replaced on the secured entrance monitor she is already on aspirin 81 mg daily Lab Data Result diagrams: 08/13/21 12:19 08/13/21 12:20 Labs: Lab Results 08/13/21 08/13/21 08/13/21 Range/Units 12:19 12:19 12:20 WBC 13.1 H (4.8-10.8) X10*3/uL RBC 4.35 (4.20-5.50) X10*6/uL Hgb 13.1 (12.0-16.0) g/dl Hct 40.0 (37.0-47.0) % MCV 92.0 (80.0-98.0) fL MCH 30.1 (27.0-33.0) pg MCHC 32.8 (31.0-35.0) g/dl RDW 13.3 (11.0-16.0) % Plt Count 208 (160-400) X10*3/uL MPV 11.2 (9.4-12.3) fL Immature Gran % (Auto) 0.3 (0.0-0.4) % Neut % (Auto) 87.3 H (45-73) % Lymph % (Auto) 5.4 L (20-40) % [place] % (Auto) 6.8 (2-11) % Eos % (Auto) 0.1 (0-4) % Baso % (Auto) 0.1 (0-2) % Lymph # (Auto) 0.7 L (1.2-4.9) X10*3/uL [place] # (Auto) 0.9 (0.1-1.2) X10*3/uL Eos # (Auto) 0.0 (0.0-0.4) X10*3/uL Baso # (Auto) 0.0 (0.0-0.2) X10*3/uL Abs Immat Gran (auto) 0.04 H (0.00-0.03) X10*3/uL Absolute Neuts (auto) 11.4 H (2.0-8.3) x10*3/uL Absolute Nucleated RBC 0.000 (0.0-0.012) X10*3/uL Nucleated RBC % (auto) 0.0 (0.0-0.2) /100WBC Sodium 141 (135-145) mmol/L Potassium 3.9 (3.3-5.1) mmol/L Chloride 107 (96-108) mmol/L Carbon Dioxide 25 (22-29) mmol/L Anion Gap 13 (12-20) BUN 13 (9-16) mg/dL Creatinine 0.73 (0.5-1.4) mg/dL Estim Creat Clear Calc 66.2 Estimated GFR > 60 Random Glucose 88 (60-115) mg/dL Calcium 9.2 (8.4-10.2) mg/dL Total Bilirubin 0.2 (0.0-1.0) mg/dL AST 32 H (5-31) U/L ALT 26 (0-31) U/L Alkaline Phosphatase 77 (39-117) U/L Troponin I High Sens 15.5 (<3.5-17.0) ng/L Total Protein 7.3 (6.5-8.0) g/dL Albumin 4.2 (3.5-5.0) g/dL Imaging Data MRI BRAIN: Radiologist's impression: ic transformation. There is no hydrocephalus, extra-axial surface collection, or herniation. The major flow voids at the skull base are preserved. The midline structures are normal. The cerebellar tonsils are normally positioned. The craniocervical junction is normal. Osseous marrow signal intensity is homogenous. The visualized soft tissues are unremarkable. MR/MR head/brain wo con IMPRESSION: - There is a small acute infarct within the right cerebellar hemisphere. No mass effect and no hemorrhagic transformation. ? - There are extensive T2 signal changes throughout the supratentorial white matter, possibly advanced chronic microangiopathy though nonspecific. Chronic lacunar infarct within the right jose j. ? Findings discussed with Dr. Quiñonez at 11:41 AM on August 13, 2021. The patient will be transferred directly to the emergency department following this exam. Dictated By: CHARU ROGERS MD Signed By: <Electronically signed by CHARU ROGERS MD in OV> 08/13/21 1157 ECG Data Attestation: I personally reviewed and interpreted this ECG as follows: Pacemaker model: NSR 89 no ischemic changes Discharge Plan Discharge Clinical Impression: Acute CVA (cerebrovascular accident) Patient Disposition: Admitted As Inpatient
[2021-08-13 12:24] LABS: MANUAL DIFF FLAG NO
[2021-08-13 12:25] LABS: Basophils Percent Auto 0.1 % (0-2); Eosinophils Percent Auto 0.1 % (0-4); Hemoglobin 13.1 g/dl (12.0-16.0); Imm Gran Abs Auto 0.04 X10*3/uL (0.00-0.03); Imm Gran Pct Auto 0.3 % (0.0-0.4); Lymphocytes Absolute Auto 0.7 X10*3/uL (1.2-4.9); Lymphocytes Percent Auto 5.4 % (20-40); Mean Corpuscular HGB Conc 32.8 g/dl (31.0-35.0); Mean Corpuscular Hemoglobin 30.1 pg (27.0-33.0); Mean Platelet Volume 11.2 fL (9.4-12.3); Monocytes Absolute Auto 0.9 X10*3/uL (0.1-1.2); Monocytes Percent Auto 6.8 % (2-11); Neutrophils Absolute Auto 11.4 x10*3/uL (2.0-8.3); Neutrophils Percent Auto 87.3 % (45-73); Platelet Count 208 X10*3/uL (160-400); Red Blood Count 4.35 X10*6/uL (4.20-5.50); Red Cell Distribution Width 13.3 % (11.0-16.0); White Blood Count 13.1 X10*3/uL (4.8-10.8)
--- NOTE | 2021-08-13 12:26 | PC.NURSE ---
patient arrives from MRI for infarct being found. patient states she had MRI for amnesia that started in December. Patient c/o headache. No other deficits. no weakness, no slurred speech, neuro assessment WDL. Patient passed swallow eval. Labs drawn and sent. EKG done. Resting safely.
[2021-08-13 12:31] VITALS: BP 159/81
[2021-08-13 12:44] LABS: Troponin-I High Sensitivity 15.5 ng/L (<3.5-17.0)
--- NOTE | 2021-08-13 12:44 | MHC.STROKE ---
Addendum entered by Minoo Dozier RN 08/14/21 09:21: iN SPEAKING WITH THE PATIENT SHE DID RELAY TO THE COMPOUNDER HELPER AND MYSELF THAT SHE DID HAVE A EPISODE OF DIZZINESS 2-DAYS PRIOR, ? ONSET OF SYMPTOMS 08/11/21 NO TIME, ONLY DATE. Addendum entered by Minoo Dozier RN 08/13/21 14:41: I MET WITH THE PATIENT WITH THE COMPOUNDER HELPER KINJAL. WE DISCUSSED HER STROKE DIAGNOSIS. I REVIEWED THE MRI RESULTS AND GAVE HER A SCREEN SHOT OF THE MRI AND LOCATION OF THE STROKE. WE TALKED ABOUT MEDICATION COMPLIANCE AND SHE SAID SHE TAKES HER ELIQUIS TWICE A DAY CONSISTENTLY, ASPIRIN ALSO. HER BP HAS BEEN RUNNING HIGH AND NEEDS TO BE UNDER BETTER CONTROL. A LIPID PANEL TO CHECK HER LDL, GOAL < 70. DR ROMERO IS ALSO RECOMMENDING A CTA HEAD TO ASSESS INTRACRANIAL STENOSIS. I REVIEWED HER PAF, AND OTHER RISK FACTORS USING THE [facility]ELSH STROKE EDUCATION BOOKLET. I WILL CONTINUE TO FOLLOW. Original Note: 1210 CALLED BY ED FOR + ACUTE RIGHT CEREBELLAR STROKE FOUND ON MRI. NIHSS = 0. I DISCUSSED THE CASE WITH DR ROMERO AND HE REVIEWED THE MRI. SHE DOES NOT NEED TO BE TRANSFERRED, THE AREA IS SMALL. SHE HAS A HISTORY OF HTN, AFIB, CAD, SEEN BY ONCOLOGY. 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 NO CAROTID US NEEDED, DONE ON 02/21/21. ECHO AND NEUROLOGY CONSULT TO ASSESS AMNESIA AND ASSESS FOR OTHER NEUROLOGICAL DEFICITS. PASSED SWALLOW SCREEN. DISCUSSED THIS WITH DR CERDA.
[2021-08-13 12:50] LABS: Alanine Aminotransferase 26 U/L (0-31); Albumin Level 4.2 g/dL (3.5-5.0); Alkaline Phosphatase 77 U/L (39-117); Anion Gap 13 (12-20); Aspartate Amino Transferase 32 U/L (5-31); Bilirubin Total 0.2 mg/dL (0.0-1.0); Blood Urea Nitrogen 13 mg/dL (9-16); Calcium 9.2 mg/dL (8.4-10.2); Carbon Dioxide 25 mmol/L (22-29); Chloride 107 mmol/L (96-108); Creatinine Clr Calc Pharmacy 66.2; Estimated Glomerular Filt Rate > 60; Glucose Random 88 mg/dL (60-115); Potassium 3.9 mmol/L (3.3-5.1); Sodium 141 mmol/L (135-145); Total Protein 7.3 g/dL (6.5-8.0)
--- NOTE | 2021-08-13 13:44 | PM.NEUROCN ---
History of Present Illness Data of Consult Service Date: 08/13/21 Primary Care Provider: Yeny Calderon MD HPI Reason for consult: Stroke 75 years old woman with underlying paroxysmal atrial fibrillation on Eliquis taking it regularly and also monoclonal gammopathy who had an outpatient MRI of brain for dizziness. She was noted to have an acute infarct and was brought to emergency room. At this time she was comfortable with no acute symptoms. There was no complaint of headache. Review of Systems Review of Systems: No recent trauma or cold or flu-like illness PMFSH Past Medical History Medical History Abdominal hyperesthesia Dyspepsia GERD (gastroesophageal reflux disease) HTN (hypertension) IBS (irritable bowel syndrome) Osteoarthritis of lumbar spine Scoliosis Family History Family History Son HTN (hypertension) Surgical History Surgical History H/O bilateral breast reduction surgery H/O section H/O oophorectomy Hx of hysterectomy Social History Social History (Updated 08/12/21 @ 02:09 by Jazmin Apple DO) Alcohol intake: never Patient Tobacco Use Status: Never used Tobacco Advance Directives: No Advance Directives Information Provided: Yes Meds Allergies Allergy/AdvReac Type Severity Reaction Status Date / Time acetaminophen [From Percocet] Allergy Intermediate Agitated Verified 08/05/21 09:05 oxycodone [From Percocet] Allergy Intermediate Agitated Verified 08/05/21 09:05 Home Medications Medication Instructions Recorded Confirmed Last Taken Type aspirin 81 mg tablet,delayed 81 mg PO DAILY 12/05/20 07/31/21 Unknown History release (Enteric Coated Aspirin) cholecalciferol (vitamin D3) 25 25 mcg PO DAILY 12/05/20 07/31/21 Unknown History mcg (1,000 unit) capsule diclofenac sodium 75 mg 75 mg PO BID 12/05/20 07/31/21 Unknown History tablet,delayed release metoprolol succinate 50 mg 50 mg PO DAILY 12/05/20 07/31/21 Unknown History tablet,extended release 24 hr apixaban 5 mg tablet (Eliquis) 5 mg PO BID 01/30/21 07/31/21 Unknown History Physical Exam Vital Signs: Vital Signs: Last Vital Signs Temp 98.1 F 08/13/21 12:11 Pulse 98 08/13/21 12:11 Resp 18 08/13/21 12:11 BP 159/81 H 08/13/21 12:31 Pulse Ox 98 08/13/21 12:11 Body Mass Index 26.7 Neuro: Other: She was alert and awake with normal spontaneity of speech fluency comprehension and affect. She did not speaking lesion. Face was symmetrical. Visual portillo are full. There was no pronator drift. [id number] testing did not reveal any focal ataxia. Deep tendon reflexes were trace to absent with flexor plantars. Results Labs CBC & Chem 7: 08/13/21 12:19 08/13/21 12:20 Labs: Short CBC 08/13/21 Range/Units 12:19 WBC 13.1 H (4.8-10.8) X10*3/uL Hgb 13.1 (12.0-16.0) g/dl Hct 40.0 (37.0-47.0) % Plt Count 208 (160-400) X10*3/uL BMP 08/13/21 12:20 Sodium 141 Potassium 3.9 Chloride 107 Carbon Dioxide 25 BUN 13 Creatinine 0.73 Calcium 9.2 Liver Function 08/13/21 Range/Units 12:20 Total Bilirubin 0.2 (0.0-1.0) mg/dL AST 32 H (5-31) U/L ALT 26 (0-31) U/L Alkaline Phosphatase 77 (39-117) U/L Albumin 4.2 (3.5-5.0) g/dL Her MRI of brain revealed a small right cerebellar ischemic infarct. Also noted were multiple chronic bilateral similar cortical cerebral and cerebellar infarcts. Assessment and Plan (1) Cerebellar infarct: Status: Acute 75 years old woman with underlying history of paroxysmal atrial fibrillation on Eliquis taking regularly had an outpatient MRI of brain that revealed a small right cerebellar ischemic infarct. As far as infarct was concerned, she did not have any particular deficit and no significant complications were expected from it. Her MRI also revealed bilateral his chronic ischemic lesions suggestive of chronic microvascular disease but also possibility of chronic embolism. She was already anticoagulated for atrial fibrillation. I would recommend a CTA of brain to rule out intracranial atherosclerotic disease that might also explain pathology seen on MRI. Otherwise mainstay of management is blood pressure control and statin with possible addition of baby aspirin once or twice a week. Procedures Date of Service Date of Service: 08/13/21
[2021-08-13 14:24] VITALS: BP 169/111; PULSE 81; RESP 15; TEMP 36.8; O2SAT 98
--- NOTE | 2021-08-13 15:56 | PM.IMHP ---
History of Present Illness Date of Service: 08/13/21 Chief Complaint: stroke, memory issues 75 year old female with history of AFIB on eliquis, history of CVA back in december 2020 and has been having memory issues since then and so PCP arranged outpatient MRI which was done today and noted to have a small acute infarct within the right cerebellar hemisphere She has no new new symptoms related to stroke. Of note she was seen in the ED yesterday for asthma and release. Review of Systems Review of Systems: Gen: no fever Resp: no sob, no cough CV: no chest, no MOHAN, no leg edema GI: No n/v, no abd pain Neuro: No confusion, no weakness, no speech changes, no visual changes, memory issue is old Yes all other systems are reviewed and are negative [facility] Medical History Abdominal hyperesthesia Dyspepsia GERD (gastroesophageal reflux disease) History of CVA (cerebrovascular accident) HTN (hypertension) IBS (irritable bowel syndrome) Osteoarthritis of lumbar spine Scoliosis Family History Son HTN (hypertension) Surgical History H/O bilateral breast reduction surgery H/O section H/O oophorectomy Hx of hysterectomy Social History Alcohol intake: never Patient Tobacco Use Status: Never used Tobacco Advance Directives: No Advance Directives Information Provided: Yes Meds Allergies Allergy/AdvReac Type Severity Reaction Status Date / Time acetaminophen [From Percocet] Allergy Intermediate Agitated Verified 08/05/21 09:05 oxycodone [From Percocet] Allergy Intermediate Agitated Verified 08/05/21 09:05 Home Medications Medication Instructions Recorded Confirmed Last Taken Type aspirin 81 mg tablet,delayed 81 mg PO DAILY 12/05/20 07/31/21 Unknown History release (Enteric Coated Aspirin) cholecalciferol (vitamin D3) 25 25 mcg PO DAILY 12/05/20 07/31/21 Unknown History mcg (1,000 unit) capsule diclofenac sodium 75 mg 75 mg PO BID 12/05/20 07/31/21 Unknown History tablet,delayed release metoprolol succinate 50 mg 50 mg PO DAILY 12/05/20 07/31/21 Unknown History tablet,extended release 24 hr apixaban 5 mg tablet (Eliquis) 5 mg PO BID 01/30/21 07/31/21 Unknown History Physical Exam Vital Signs and Narrative: Vital Signs: Last Vital Signs Temp 98.2 F 08/13/21 14:24 Pulse 81 08/13/21 14:24 Resp 15 08/13/21 14:24 BP 169/111 H 08/13/21 14:24 Pulse Ox 98 08/13/21 14:24 Body Mass Index 26.7 Const: Other: Constitutional: Alert, in no distress, overweight. Mental Status: Oriented to person, place and time. Eyes: Pupils are equal, round and reactive to light. Ear, Nose and Throat: Oropharynx clear, mucous membranes moist. Respiratory: Clear to auscultation. No wheezing, rales or rhonchi. Cardiovascular: S1 S2 ireregular. No murmurs, rubs or gallops. Gastrointestinal: Abdomen soft, non-tender, non-distended. Normal bowel sounds.? Neurologic: Cranial nerves II-XII grossly intact. No focal neurological deficits. Moves all extremities spontaneously.? Skin: No rashes or lesions.? Musculoskeletal: No cyanosis or clubbing. Psychiatric: Normal mood and affect? Results Labs CBC and Chem 7: 08/13/21 12:19 08/13/21 12:20 Labs: Laboratory Results - last 24 hr 08/13/21 08/13/21 08/13/21 12:19 12:19 12:20 MCV 92.0 MCH 30.1 MCHC 32.8 RDW 13.3 Plt Count 208 MPV 11.2 Immature Gran % (Auto) 0.3 Neut % (Auto) 87.3 H Lymph % (Auto) 5.4 L [place] % (Auto) 6.8 Eos % (Auto) 0.1 Baso % (Auto) 0.1 Lymph # (Auto) 0.7 L [place] # (Auto) 0.9 Eos # (Auto) 0.0 Baso # (Auto) 0.0 Abs Immat Gran (auto) 0.04 H Absolute Neuts (auto) 11.4 H Absolute Nucleated RBC 0.000 Nucleated RBC % (auto) 0.0 Anion Gap 13 Estim Creat Clear Calc 66.2 Estimated GFR > 60 Random Glucose 88 Calcium 9.2 Total Bilirubin 0.2 AST 32 H ALT 26 Alkaline Phosphatase 77 Troponin I High Sens 15.5 Total Protein 7.3 Albumin 4.2 Assessment and Plan (1) Afib: Status: Acute (2) Cerebellar infarct: Status: Acute 75 year female with history of cva, afib on eliquis has been having memory issues since last stroke in december and PCP did outpatient MRI for memory work up and she's noted to have a smle stroke as stated above without any new neuro finding. She has been taking eliquis regulary 1/ CVA with no focal deficit--Seen by Neuro with following recommendation (Dr. mejía): ? would recommend a CTA of brain to rule out intracranial atherosclerotic disease that might also explain pathology seen on MRI.? Otherwise mainstay of management is blood pressure control and statin with possible addition of baby aspirin once or twice a week. -continue ASA, eliquis, statin, BP controll, PT/OT per stroke protocol 2/ HTN--continue home meds 3/ Chronic AFIB-Metoprolol for rate controlled and continue eliquis 4/ Asthma with cough--no covid, continue prednisone, bronchodilators, I anticipate dc tomorrow 5/Leukocytosis--d/t steriud Quality Stroke Does the patient have a stroke diagnosis?: No VTE Prior VTE?: No VTE Risk Level:: Medical - moderate - high VTE Device Contraindication: Treatment Not Tolerated VTE Drug Contraindication: N/A - Med Ordered
[2021-08-13 16:23] LABS: COVID-19 Test Negative (Negative)
[2021-08-13 17:06] VITALS: BP 166/84; PULSE 72; RESP 18; O2SAT 96
--- NOTE | 2021-08-13 17:22 | PHA.MEDREC ---
Pharmacy Consult ? Medication Reconciliation Pharmacy has completed the medication reconciliation. Confirmed with pt she no longer takes multaq or any other med for a-fib besides eliquis
[2021-08-13] MEDS: Albuterol Sulfate 90 MCG 8 GM INHALER 2 PUFF INHALE (17:47)
[2021-08-13] MEDS: Acetaminophen 325 MG TABLET 650 MG PO (17:48)
--- NOTE | 2021-08-13 17:59 | MHC.CM.PN ---
CM met with admitted patient with bed assignment pending. Pt a bit teary when CM explained that pt would be admitted to hospital. Explained that more testing is needed and observation. A&Ox3. IMM reviewed and signed per protocol 08/13/21@1720. No HCP on file. HCP reviewed, completed and signed. Copies given and uploaded into [employer] and [facility]. HCP/son Floyd Mendosa ([phone]). Pt fully vaccinated with J&J 12/25/20. Lives alone. Grandson is her ACCOUNTING/FINANCE TUTOR. ACCOUNTING/FINANCE TUTOR services 2 hours daily. No DME. D/C plan is home with continued ACCOUNTING/FINANCE TUTOR services. Transportation by family. CM to follow for d/c needs.
[2021-08-13 19:33] VITALS: BP 159/76; PULSE 83; RESP 16; O2SAT 97
[2021-08-13] MEDS: Apixaban 5 MG TABLET PO (20:21)
[2021-08-13] MEDS: Calcium + Vitamin D 250 MG TABLET 500 MG PO (20:21)
[2021-08-13] MEDS: Atorvastatin Calcium 40 MG TABLET PO (20:21)
[2021-08-13 23:36] VITALS: BP 166/72; PULSE 72; RESP 16; TEMP 37; O2SAT 98
[2021-08-14 05:17] VITALS: BP 139/70; PULSE 66; RESP 16; O2SAT 96
[2021-08-14 07:46] LABS: Cholesterol 160 mg/dL; HDL Cholesterol 57 mg/dL; LDL Cholesterol Calculated 92 mg/dl; Triglycerides 56 mg/dL
[2021-08-14] MEDS: iohexoL 350 MG/ML 100 ML INFUS..BTL IV (08:37)
--- NOTE | 2021-08-14 09:11 | PM.DS ---
DS: Providers Provider Date of Service: 08/14/21 Date of admission: 08/13/21 16:15 Primary care physician: Yeny Calderon MD DS: Diagnosis Discharge Diagnosis (1) Afib: Status: Acute (2) Cerebellar infarct: Status: Acute DS: Summary Hospital Course Hospital Course: Date of Service: 08/13/21 Chief Complaint: stroke, memory issues 75 year old female with history of AFIB on eliquis, history of CVA back in december 2020 and has been having memory issues since then and so PCP arranged outpatient MRI which was done today and noted to have ?a small acute infarct within the right cerebellar hemisphere She has no new new symptoms related to stroke. Of note she was seen in the ED yesterday for asthma and release. Hospital course: Patient was observed overnight with no neuro changes, neurology recommended heada and neck CTA, aspirin and maximise BP controlled. Seen by PT/OT with no further recommendation. Norvasc 5 mg daily is being added to her blood pressure regimen, will continue present Rosuvostatin Time Spent with Patient Time attestation: Total time spent providing and/or coordinating discharge services: Discharge coordination time: Greater than 30 minutes Quality: Stroke Does the patient have a stroke diagnosis?: No Physical Exam Vital Signs: Vital Signs: Last Vital Signs Temp 98.6 F 08/13/21 23:36 Pulse 66 08/14/21 05:17 Resp 16 08/14/21 05:17 BP 139/70 08/14/21 05:17 Pulse Ox 96 08/14/21 05:17 Body Mass Index 26.7 Const: Other: General: AO X 3, no acute distress Resp: CTA bilateral CVS: S1,S2,RRR GI: +BS, NT, no distention Skin: No rash Neuro: motor grossly intact Psych: appropriate affect DS: Data Data Completed and Pending Labs on day of discharge: LDL 92, HDL 57, chol 160, TG 56 Discharge Plan Discharge Anticipated Discharge Date/Time: 08/14/21 09:09 Patient Disposition: Home, Self-Care Discharge Diagnosis: acute cva Referrals: Yeny Calderon MD [Primary Care Provider] - 1 Week Discharge Medications: Continued Eliquis 5 mg Tablet 5 mg PO BID RF: 0 ipratropium-albuterol 0.5 mg-3 mg(2.5 mg base)/3 mL solution for nebulization 3 ml inhalation Q4-6H PRN (Reason: Shortness Of Breath) RF: 0 lisinopril 20 mg tablet 1 tab PO DAILY RF: 0 metoprolol succinate 25 mg tablet extended release 24 hr 25 mg PO DAILY RF: 0 fluticasone propionate 50 mcg/actuation spray,suspension 1 spray intranasal DAILY RF: 0 loratadine 10 mg tablet 1 tab PO DAILY RF: 0 rosuvastatin 10 mg tablet 10 mg PO BEDTIME RF: 0 calcium carbonate-vitamin D3 [Calcium 500 With D] 500 mg(1,250mg) -400 unit tablet 1 tab PO BID RF: 0 Breo Ellipta 200-25 mcg/dose blister with device 1 puff inhalation DAILY RF: 0 cholecalciferol (vitamin D3) 25 mcg (1,000 unit) capsule 25 mcg PO DAILY RF: 0 aspirin [Enteric Coated Aspirin] 81 mg tablet,delayed release (DR/EC) 81 mg PO DAILY RF: 0 Discharge Orders: Discharge Order (Routine); Ordered 08/14/21 Ordered By: Kyaw Garcia Diet: advance to usual diet Activity on Discharge: As tolerated Stand Alone Forms: Patient Portal Discharge page Care Plan Goals: Prevent stroke, control blood pressure Health Concerns: stroke Plan of Treatment: take all your medications as recommended and follow up with your doctor in a week Assessment: as above
[2021-08-14 09:32] VITALS: BP 158/94; PULSE 68; RESP 19; TEMP 36.4; O2SAT 95
[2021-08-14] MEDS: Apixaban 5 MG TABLET PO (09:41)
[2021-08-14] MEDS: Loratadine 10 MG TABLET PO (09:41)
[2021-08-14] MEDS: Metoprolol Succinate ER 25 MG TAB.ER.24H PO (09:41)
[2021-08-14] MEDS: Famotidine 20 MG TABLET PO (09:41)
[2021-08-14] MEDS: Calcium + Vitamin D 250 MG TABLET 500 MG PO (09:42)
[2021-08-14] MEDS: Cholecalciferol (Vitamin D3) 25 MCG TABLET PO (09:42)
[2021-08-14] MEDS: Aspirin Enteric Coated 81 MG TABLET.DR PO (09:42)
[2021-08-14 10:26] VITALS: BP 158/94; PULSE 68; O2SAT 95
--- NOTE | 2021-08-14 10:57 | PC.NURSE ---
Pt with exp wheezes. Will notify RT for prn nebulizer admin. Pt refused am lisinopril as she states that she does not take at home. She states that one of her physicians had told her to stop taking it.
[2021-08-14 11:14] VITALS: BP 161/77; PULSE 66
[2021-08-14] MEDS: amLODIPine Besylate 5 MG TABLET PO (11:14)
--- NOTE | 2021-08-14 11:20 | MHC.CM.PN ---
PT WILL DC HOME TODAY WITH [facility] [employer] [employer] [facility] TO TRANSPORT
[2021-08-14] MEDS: Albuterol/Iprat 2.5/0.5MG 3 ML AMPUL.NEB INHALE (11:43)
[2021-08-14 11:44] VITALS: PULSE 64; O2SAT 94
[2021-08-14 11:57] VITALS: BP 151/51; PULSE 72
[2021-08-14] MEDS: lisinopriL 10 MG TABLET PO (11:57)
== END 2021-08-14 13:54 | disposition home or self-care (01) | DRG 65 ==
LOC: HO.ED 13:47 → HO.EDOVER 16:32
PROVIDERS: Emergency Medicine; Admitting Provider Internal Medicine; Emergency Provider Emergency Medicine; PCP Internal Medicine; Visit Provider Internal Medicine
DX: I63.9 Cerebral infarction, unspecified (principal); I48.20 Chronic atrial fibrillation, unspecified; K21.9 Gastro-esophageal reflux disease without esophagitis; D72.829 Elevated white blood cell count, unspecified; I69.811 Memory deficit following other cerebrovascular disease; I10 Essential (primary) hypertension; R29.700 NIHSS score 0; Z88.5 Allergy status to narcotic agent; Z88.6 Allergy status to analgesic agent; Z79.01 Long term (current) use of anticoagulants; Z79.51 Long term (current) use of inhaled steroids; Z79.82 Long term (current) use of aspirin; Z79.899 Other long term (current) drug therapy
CPT/HCPCS: 36415; 70496; 70498; 80053; 80061; 84484; 85025; 87635; 93005; 94640; 97161; 97165; 99285; Q9967

== ENCOUNTER → 2021-08-15 08:52 | Outpatient (BNVA) | payer MEDICARE, SELFPAY | PROVIDERS: PCP Internal Medicine; Visit Provider Internal Medicine Pulmonary Disease | DX: R05.3 Chronic cough (principal); R91.8 Other nonspecific abnormal finding of lung field | CPT/HCPCS: 99212 ==

== ENCOUNTER 2021-08-27 11:18 | Outpatient (REF) | payer MEDICARE, SELFPAY ==
--- NOTE | ~2021-08-27 | XR_ITS ---
EXAMINATION: BILATERAL HUMERUS AND CERVICAL SPINE CLINICAL INFORMATION: Pain radiating down the arms. COMPARISON: None TECHNIQUE: 2 views each time. Cervical spine 7 views. FINDINGS: LEFT HUMERUS: There is mild spurring along the medial humeral head/neck junction. No fracture, or dislocation seen in the left shoulder. There is no bony abnormality. The soft tissues are normal. RIGHT HUMERUS: There is no visible acute fracture, dislocation or subluxation. No periosteal thickening, lytic or sclerotic process. There is mild spurring along the medial humeral head/neck junction. The soft tissues are normal. CERVICAL SPINE: There is mild straightening of cervical lordosis. There is loss of C4-C5, C5-C6 and C6-C7 disc heights with moderate ventral spondylosis these disc levels. On flexion and extension views there is no subluxation seen. The prevertebral and paravertebral soft tissues are normal. The neural foramina are patent bilaterally. The prevertebral and paravertebral soft tissues are normal. XR/XR humerus RT IMPRESSION: Degenerative disc changes C4-C5, C5-C6 and C6-C7 disc levels with moderate ventral spondylosis. No visible acute fracture or dislocation. The neural foramina are patent. No subluxation on flexion-extension views. Unremarkable bilateral humerus except for bilateral small spurs along the medial humeral head/lesser tuberosity junction.
--- NOTE | ~2021-08-27 | XR_ITS ---
EXAMINATION: BILATERAL HUMERUS AND CERVICAL SPINE CLINICAL INFORMATION: Pain radiating down the arms. COMPARISON: None TECHNIQUE: 2 views each time. Cervical spine 7 views. FINDINGS: LEFT HUMERUS: There is mild spurring along the medial humeral head/neck junction. No fracture, or dislocation seen in the left shoulder. There is no bony abnormality. The soft tissues are normal. RIGHT HUMERUS: There is no visible acute fracture, dislocation or subluxation. No periosteal thickening, lytic or sclerotic process. There is mild spurring along the medial humeral head/neck junction. The soft tissues are normal. CERVICAL SPINE: There is mild straightening of cervical lordosis. There is loss of C4-C5, C5-C6 and C6-C7 disc heights with moderate ventral spondylosis these disc levels. On flexion and extension views there is no subluxation seen. The prevertebral and paravertebral soft tissues are normal. The neural foramina are patent bilaterally. The prevertebral and paravertebral soft tissues are normal. XR/XR cervical spine w flex/ext IMPRESSION: Degenerative disc changes C4-C5, C5-C6 and C6-C7 disc levels with moderate ventral spondylosis. No visible acute fracture or dislocation. The neural foramina are patent. No subluxation on flexion-extension views. Unremarkable bilateral humerus except for bilateral small spurs along the medial humeral head/lesser tuberosity junction.
--- NOTE | ~2021-08-27 | XR_ITS ---
EXAMINATION: BILATERAL HUMERUS AND CERVICAL SPINE CLINICAL INFORMATION: Pain radiating down the arms. COMPARISON: None TECHNIQUE: 2 views each time. Cervical spine 7 views. FINDINGS: LEFT HUMERUS: There is mild spurring along the medial humeral head/neck junction. No fracture, or dislocation seen in the left shoulder. There is no bony abnormality. The soft tissues are normal. RIGHT HUMERUS: There is no visible acute fracture, dislocation or subluxation. No periosteal thickening, lytic or sclerotic process. There is mild spurring along the medial humeral head/neck junction. The soft tissues are normal. CERVICAL SPINE: There is mild straightening of cervical lordosis. There is loss of C4-C5, C5-C6 and C6-C7 disc heights with moderate ventral spondylosis these disc levels. On flexion and extension views there is no subluxation seen. The prevertebral and paravertebral soft tissues are normal. The neural foramina are patent bilaterally. The prevertebral and paravertebral soft tissues are normal. XR/XR humerus LT IMPRESSION: Degenerative disc changes C4-C5, C5-C6 and C6-C7 disc levels with moderate ventral spondylosis. No visible acute fracture or dislocation. The neural foramina are patent. No subluxation on flexion-extension views. Unremarkable bilateral humerus except for bilateral small spurs along the medial humeral head/lesser tuberosity junction.
[2021-08-27 11:32] LABS: MANUAL DIFF FLAG NO
[2021-08-27 11:50] LABS: Basophils Percent Auto 0.2 % (0-2); Eosinophils Absolute Auto 0.2 X10*3/uL (0.0-0.4); Eosinophils Percent Auto 2.6 % (0-4); Hematocrit 38.6 % (37.0-47.0); Hemoglobin 12.6 g/dl (12.0-16.0); Imm Gran Abs Auto 0.02 X10*3/uL (0.00-0.03); Imm Gran Pct Auto 0.3 % (0.0-0.4); Lymphocytes Absolute Auto 1.5 X10*3/uL (1.2-4.9); Lymphocytes Percent Auto 24.6 % (20-40); Mean Corpuscular HGB Conc 32.6 g/dl (31.0-35.0); Mean Corpuscular Volume 91.9 fL (80.0-98.0); Mean Platelet Volume 11.8 fL (9.4-12.3); Monocytes Absolute Auto 0.7 X10*3/uL (0.1-1.2); Monocytes Percent Auto 10.4 % (2-11); Neutrophils Absolute Auto 3.9 x10*3/uL (2.0-8.3); Neutrophils Percent Auto 61.9 % (45-73); Platelet Count 234 X10*3/uL (160-400); Red Cell Distribution Width 13.1 % (11.0-16.0); White Blood Count 6.3 X10*3/uL (4.8-10.8)
[2021-08-27 11:51] LABS: Estimated Average Glucose 105 mg/dL; Hemoglobin A1C 113.4814 umol/L; Hemoglobin A1c % 5.3 %
[2021-08-27 12:40] LABS: Anion Gap 11 (12-20); Blood Urea Nitrogen 11 mg/dL (9-16); Carbon Dioxide 27 mmol/L (22-29); Chloride 107 mmol/L (96-108); Cholesterol 166 mg/dL; Estimated Glomerular Filt Rate > 60; Glucose Random 99 mg/dL (60-115); HDL Cholesterol 50 mg/dL; LDL Cholesterol Calculated 105 mg/dl; Potassium 4.4 mmol/L (3.3-5.1); Sodium 141 mmol/L (135-145); Triglycerides 57 mg/dL
== END 2021-08-27 11:19 | disposition home or self-care (01) ==
LOC: HO.XRAY 11:18
PROVIDERS: Visit Provider Nurse Practitioner Acute Care
DX: M54.2 Cervicalgia (principal); M79.601 Pain in right arm; M79.602 Pain in left arm; R23.3 Spontaneous ecchymoses; I48.91 Unspecified atrial fibrillation; I63.9 Cerebral infarction, unspecified
CPT/HCPCS: 36415; 72052; 73060; 80048; 80061; 83036; 85025

== ENCOUNTER 2021-08-27 19:36 | Emergency (ER) | payer MEDICARE, SELFPAY ==
--- NOTE | ~2021-08-27 | US_ITS ---
EXAMINATION: US ABDOMEN LIMITED CLINICAL INFORMATION: Epigastric/right upper quadrant pain. COMPARISON: Abdominal ultrasound dated from 12/09/2017. CT abdomen/pelvis dated from 11/28/2017. TECHNIQUE: Real-time imaging of the right upper quadrant abdominal viscera. FINDINGS: PANCREAS: Normal. LIVER: Normal. The liver is normal in size. The liver contour is normal. Parenchymal echogenicity is normal. No focal hepatic lesion. There is no intrahepatic biliary duct dilatation seen. GALLBLADDER: Normal. The gallbladder is physiologically distended without evidence of stones, sludge, polyps, wall thickening or pericholecystic fluid. COMMON BILE DUCT: Normal in caliber measuring 0.3 cm in diameter. RIGHT KIDNEY: Mild renal pelvic fullness. No renal calculi or focal parenchymal lesions. The kidney measures 10.1 cm in maximum dimension. FREE FLUID: None. US/US abdomen limited IMPRESSION: Aside from mild prominence of the right renal pelvis, this examination is unremarkable.
--- NOTE | ~2021-08-27 | CT_ITS ---
EXAMINATION: CT HEAD WITHOUT CONTRAST CLINICAL INFORMATION: Presyncope episode, dizziness, recent cerebrovascular accident. COMPARISON: CTA of the head and neck dated from 08/14/2021. TECHNIQUE: Contiguous axial imaging was performed from the skull base to vertex without intravenous administration of contrast. This CT examination was performed using dose optimization techniques as appropriate, variously including the following: *Automated exposure control *Adjustment of mA and/or kV according to patient size (this includes techniques or standardized protocols for targeted exams where dose is matched to indication/reason for exam; i.e. extremities or head) *Use of iterative reconstruction technique DLP: 701 mGy-cm FINDINGS: A small right cerebellar infarct is better seen on prior studies. There is no evidence of new territorial infarction. There is no evidence of acute intracranial hemorrhage. Scattered hypoattenuation in the periventricular and deep white matter are consistent with moderate microangiopathy. Wat[place]-white matter differentiation is preserved. Proportional prominence of the ventricles and sulcal spaces. No evidence for obstructive hydrocephalus. No abnormal mass effect or midline shift. No extra-axial fluid collections. No acute soft tissue or osseous abnormalities. The mastoid air cells and paranasal sinuses are clear. CT/CT head/brain wo con IMPRESSION: No new acute edematous infarction or intracranial hemorrhage. Very subtle right cerebellar infarct as seen on prior studies. Chronic microangiopathy and generalized cerebral volume loss.
[2021-08-27 19:45] VITALS: BP 131/81; PULSE 88; RESP 16; TEMP 36.6; O2SAT 97; BMI 25.7
--- NOTE | 2021-08-27 20:22 | ECG_ITS ---
Test Reason : DIZZINESS Blood Pressure : / mmHG Vent. Rate : 094 BPM Atrial Rate : 094 BPM P-R Int : 208 ms QRS Dur : 086 ms QT Int : 396 ms P-R-T Axes : 050 025 059 degrees QTc Int : 495 ms Normal sinus rhythm Possible Left atrial enlargement RSR' or QR pattern in V1 suggests right ventricular conduction delay Abnormal ECG When compared with ECG of 13-AUG-2021 12:28, No significant change was found Referred By: Kira Butler Electronically Signed By:GREG HOUSTON MD
--- NOTE | 2021-08-27 21:26 | ED_ITS ---
HPI - General Adult General Chief complaint: Anxiety Stated complaint: sob Time Seen by Provider: 08/27/21 19:46 Source: patient and EMS Mode of arrival: EMS History of Present Illness HPI narrative: 75-year-old female with a past medical history recent CVA, AFib on Eliquis, GERD, HTN, IBS, presenting to the ED via EMS complaining of sudden onset room spinning dizziness and pre-syncope this afternoon with associated chest pressure, shortness of breath, and body tingling. Admits symptoms improved at present other than chest tightness. Patient reports she is worried about recent CVA & that she may have had another one. Also reports upper abdominal pain. Denies CP/SOB at present, denies headache, vision loss, nausea/vomiting, LE edema Reports compliance with all medications, denies missing any doses Onset (ago): hour(s) Related Data Home Medications Medication Instructions Recorded Confirmed aspirin 81 mg tablet,delayed 81 mg PO DAILY 12/05/20 08/27/21 release (Enteric Coated Aspirin) cholecalciferol (vitamin D3) 25 25 mcg PO DAILY 12/05/20 08/27/21 mcg (1,000 unit) capsule apixaban 5 mg tablet (Eliquis) 5 mg PO BID 01/30/21 08/27/21 calcium carbonate 500 mg (1,250 1 tab PO BID 08/13/21 08/27/21 mg)-vitamin D3 400 unit tablet (Calcium 500 With D) fluticasone furoate 200 1 puff INHALATION DAILY 08/13/21 08/27/21 mcg-vilanterol 25 mcg/dose inhalation powder (Breo Ellipta) fluticasone propionate 50 1 spray INTRANASAL DAILY 08/13/21 08/27/21 mcg/actuation nasal spray,suspension ipratropium 0.5 mg-albuterol 3 mg 3 ml INHALATION Q4-6H PRN 08/13/21 08/27/21 (2.5 mg base)/3 mL nebulization soln loratadine 10 mg tablet 1 tab PO DAILY 08/13/21 08/27/21 metoprolol succinate 25 mg 25 mg PO DAILY 08/13/21 08/27/21 tablet,extended release 24 hr rosuvastatin 10 mg tablet 10 mg PO BEDTIME 08/13/21 08/27/21 Previous Rx's Medication Instructions Recorded amlodipine 5 mg tablet 5 mg PO DAILY #30 tab 08/14/21 lisinopril 10 mg tablet 10 mg PO DAILY #30 tab 08/14/21 levofloxacin 750 mg tablet 750 mg PO DAILY 7 Days #7 tab 08/15/21 cyclobenzaprine 5 mg tablet 5 mg PO TID PRN #21 tab 08/27/21 diclofenac sodium 1 % topical gel 4 g TOPICAL QID #100 g 08/27/21 (Voltaren Arthritis Pain) prednisone 20 mg tablet 20 mg PO BID #14 tab 08/27/21 Allergies Allergy/AdvReac Type Severity Reaction Status Date / Time acetaminophen [From Percocet] Allergy Intermediate Agitated Verified 08/27/21 1 0:06 oxycodone [From Percocet] Allergy Intermediate Agitated Verified 08/27/21 10:06 Review of Systems Review of Systems: Constitutional: No Fever, No Chills, No Fatigue, No Malaise ENT/Mouth: No Ear Pain, No Nasal Congestion, No Sinus Pain, No sore throat, No Rhinorrhea Eyes: No Eye Pain, No Swelling, No Redness, No Vision Changes Cardiovascular: + Chest Tightness, + SOB (resolved), No Dyspnea on Exertion, No Orthopnea, No Edema, No Palpitations Respiratory: No Cough, No Sputum, No Dyspnea Gastrointestinal: No Nausea, No Vomiting, No Diarrhea, No Constipation, + Abdominal pain Genitourinary: No Dysuria, No Urinary Frequency, No Hematuria,No Flank Pain Musculoskeletal: No joint pain, No Myalgias, No Joint Swelling Skin: No Skin Lesions, No rash Neuro: No Weakness, No Numbness, + Paresthesias, No Loss of Consciousness, + Dizziness (resolved), + presyncope, No Headache Psych: + Anxiety/Panic Yes all other systems are reviewed and are negative Neurologic: Denies Abnormal speech present [facility] Past Medical History Attestation statement: The following information was validated with the patient. Medical History (Updated 08/27/21 @ 23:21 by JANES Quiroga) Abdominal hyperesthesia Acute CVA (cerebrovascular accident) Afib Dyspepsia GERD (gastroesophageal reflux disease) History of CVA (cerebrovascular accident) HTN (hypertension) IBS (irritable bowel syndrome) Osteoarthritis of lumbar spine Scoliosis Surgical History H/O bilateral breast reduction surgery H/O section H/O oophorectomy Hx of hysterectomy Family History Family History Son HTN (hypertension) Social History Social History Housing: Apartment Alcohol intake: never Patient Tobacco Use Status: Never used Tobacco e-Cigarette/Vaping Use: Never Used Advance Directives: Yes Advance Directives on File: Yes Advance Directives Date on File: 08/13/21 service: No Current occupational status: disabled Physical Exam Vital Signs: Vital Signs: Last Vital Signs Temp 98.3 F 08/27/21 22:15 Pulse 92 08/27/21 23:35 Resp 14 08/27/21 23:35 BP 130/63 08/27/21 23:35 Pulse Ox 98 08/27/21 23:35 Body Mass Index 25.7 Const: General: cooperative, healthy appearing and no acute distress Orientation/consciousness: patient oriented x3 Limitations: no limitations HENMT: Head: Yes normal to inspection and Yes atraumatic Ears: hearing grossly normal bilaterally General nose exam: Normal external nose present Face and sinus: Yes normal facial exam Throat: Yes posterior oropharynx normal, Yes tonsils normal and Yes uvula midline Eyes: General: appearance normal, both eyes and all related structures Pupils: Equal, round and reactive pupils present EOM: EOMs intact bilaterally Neck: Neck: Yes normal visual inspection and Yes no meningeal signs Resp: Effort & Inspection: normal respiratory effort Auscultation: clear to auscultation bilaterally, no rales, no rhonchi and no wheezes Cardio: Rate: regular rate Heart sounds: S1 normal heart sound present and S2 normal heart sound present GI: Inspection: Yes normal to inspection Palpation (GI): Soft to palpation, Tenderness to palpation present (GI) in the RUQ, no guarding and not rigid : General: Yes no CVA tenderness Back/Spine/Pelvis: Back: no CVA tenderness Skin: Rashes: no rashes Wounds: no wounds Neuro: General: patient oriented x3, tone normal, moves all extremities, no meningeal signs, no focal motor deficits and CN's II-XI intact bilaterally Cranial nerves: Yes CN's II-XII intact bilaterally, Yes Equal, round and reactive pupils present, Yes Bilaterally intact EOM present and Yes Nystagmus not present Cognition (Neuro): normal cognition Speech: No Abnormal speech present Motor exam (neuro): 5/5 motor strength present throughout, Pronator motor function not present and no tremor noted Coordination: [id number] test normal Romberg Test: Negative Extrem: General: Yes normal to inspection and Yes no pedal edema Course Course Course Narrative: CT head/brain wo con IMPRESSION: No new acute edematous infarction or intracranial hemorrhage. Very subtle right cerebellar infarct as seen on prior studies. Chronic microangiopathy and generalized cerebral volume loss. US abdomen limited IMPRESSION: Aside from mild prominence of the right renal pelvis, this examination is unremarkable. >> possible patient is passing stone that is lower in tract. -2300--no leukocytosis, labs otherwise unremarkable, troponin negative -orthostatic vital signs negative -UA negative >> results discussed with patient with head cleaning porter including worrisome signs and symptoms and strict return precautions & needed follow-up with PCP. Patient verbalized understanding feel safe for discharge home at this time Medical Decision Making MDM Narrative Medical decision making narrative: 75-year-old female with a past medical histo ry recent CVA, AFib on Eliquis, GERD, HTN, IBS, presenting to the ED via EMS complaining of sudden onset room spinning dizziness and pre-syncope this afternoon with associated chest pressure, shortness of breath, and body tingling. On exam vital signs stable, NAD/nontoxic, lungs CTA, no focal neuro deficits, abdomen soft with RUQ tenderness to palpation, no rebound or guarding. Patient asymptomatic at present other than mild chest tightness, concern for panic/anxiety attack. With patient's history there is concern for CVA although symptoms are atypical. Rule out ACS. Concern for cholecystitis/cholelithiasis or pancreatitis Plan: EKG, labs, Abdomen ultrasound, head CT, orthostatics, re-evaluate Medical Records Medical records reviewed: Yes I reviewed the patient's medical records. Lab Data Lab results reviewed: Yes I reviewed the patient's lab results. Result diagrams: 08/27/21 22:39 08/27/21 22:39 Labs: Lab Results 08/27/21 08/27/21 08/27/21 Range/Units 22:39 22:39 22:39 WBC 8.1 (4.8-10.8) X10*3/uL RBC 4.21 (4.20-5.50) X10*6/uL Hgb 12.6 (12.0-16.0) g/dl Hct 38.6 (37.0-47.0) % MCV 91.7 (80.0-98.0) fL MCH 29.9 (27.0-33.0) pg MCHC 32.6 (31.0-35.0) g/dl RDW 12.9 (11.0-16.0) % Plt Count 208 (160-400) X10*3/uL MPV 11.1 (9.4-12.3) fL Immature Gran % (Auto) 0.4 (0.0-0.4) % Neut % (Auto) 91.9 H (45-73) % Lymph % (Auto) 6.3 L (20-40) % [place] % (Auto) 1.2 L (2-11) % Eos % (Auto) 0.0 (0-4) % Baso % (Auto) 0.2 (0-2) % Lymph # (Auto) 0.5 L (1.2-4.9) X10*3/uL [place] # (Auto) 0.1 (0.1-1.2) X10*3/uL Eos # (Auto) 0.0 (0.0-0.4) X10*3/uL Baso # (Auto) 0.0 (0.0-0.2) X10*3/uL Abs Immat Gran (auto) 0.03 (0.00-0.03) X10*3/uL Absolute Neuts (auto) 7.4 (2.0-8.3) x10*3/uL Absolute Nucleated RBC 0.000 (0.0-0.012) X10*3/uL Nucleated RBC % (auto) 0.0 (0.0-0.2) /100WBC Smear Tech's Comments VERIFIED Sodium 141 (135-145) mmol/L Potassium 3.8 (3.3-5.1) mmol/L Chloride 108 (96-108) mmol/L Carbon Dioxide 25 (22-29) mmol/L Anion Gap 12 (12-20) BUN 11 (9-16) mg/dL Creatinine 0.70 (0.5-1.4) mg/dL Estim Creat Clear Calc 70.2 Estimated GFR > 60 Random Glucose 156 H (60-115) mg/dL Calcium 9.2 (8.4-10.2) mg/dL Magnesium 2.1 (1.6-2.6) mg/dL Total Bilirubin 0.5 (0.0-1.0) mg/dL Direct Bilirubin 0.2 (0.0-0.5) mg/dL AST 27 (5-31) U/L ALT 28 (0-31) U/L Alkaline Phosphatase 70 (39-117) U/L Troponin I High Sens < 3.5 D (<3.5-17.0) ng/L Total Protein 6.9 (6.5-8.0) g/dL Albumin 4.0 (3.5-5.0) g/dL Lipase 28 (8-78) U/L Urine RBC (0) /HPF Urine WBC (0-4) /HPF Ur Squamous Epith Cells /LPF Urine Bacteria /LPF //21 Range/Units 23:21 WBC (4.8-10.8) X10*3/uL RBC (4.20-5.50) X10*6/uL Hgb (12.0-16.0) g/dl Hct (37.0-47.0) % MCV (80.0-98.0) fL MCH (27.0-33.0) pg MCHC (31.0-35.0) g/dl RDW (11.0-16.0) % Plt Count (160-400) X10*3/uL MPV (9.4-12.3) fL Immature Gran % (Auto) (0.0-0.4) % Neut % (Auto) (45-73) % Lymph % (Auto) (20-40) % [place] % (Auto) (2-11) % Eos % (Auto) (0-4) % Baso % (Auto) (0-2) % Lymph # (Auto) (1.2-4.9) X10*3/uL [place] # (Auto) (0.1-1.2) X10*3/uL Eos # (Auto) (0.0-0.4) X10*3/uL Baso # (Auto) (0.0-0.2) X10*3/uL Abs Immat Gran (auto) (0.00-0.03) X10*3/uL Absolute Neuts (auto) (2.0-8.3) x10*3/uL Absolute Nucleated RBC (0.0-0.012) X10*3/uL Nucleated RBC % (auto) (0.0-0.2) /100WBC Smear Tech's Comments Sodium (135-145) mmol/L Potassium (3.3-5.1) mmol/L Chloride (96-108) mmol/L Carbon Dioxide (22-29) mmol/L Anion Gap (12-20) BUN (9-16) mg/dL Creatinine (0.5-1.4) mg/dL Estim Creat Clear Calc Estimated GFR Random Glucose (60-115) mg/dL Calcium (8.4-10.2) mg/dL Magnesium (1.6-2.6) mg/dL Total Bilirubin (0.0-1.0) mg/dL Direct Bilirubin (0.0-0.5) mg/dL AST (5-31) U/L ALT (0-31) U/L Alkaline Phosphatase (39-117) U/L Troponin I High Sens (<3.5-17.0) ng/L Total Protein (6.5-8.0) g/dL Albumin (3.5-5.0) g/dL Lipase (8-78) U/L Urine RBC 0-2 (0) /HPF Urine WBC 0-2 (0-4) /HPF Ur Squamous Epith Cells TRACE /LPF Urine Bacteria NONE /LPF ECG Data Attestation: I personally reviewed and interpreted this ECG as follows: Interpretation: EKG normal sinus rhythm at a rate of 94. FL interval 208. QTC 495. No STEMI Discharge Plan Discharge Clinical Impression: Episodic lightheadedness, Episode of dizziness, Chest pressure Abdominal pain Qualifiers: Abdominal location: right upper quadrant Qualified Code(s): R10.11 - Right upper quadrant pain Instructions: Abdominal Pain (ED), Dizziness (ED) Additional Instructions: Your blood work and imaging studies were reassuring Please stay hydrated Please follow-up with her doctor, if her symptoms persist or worsen, recur, have constant worsening headache, nausea/vomiting, chest pain/shortness of breath please return to the ED Julieta an?lisis de johan y estudios de im?genes fueron reconfortantes Por favor mantente hidratado Jermaine un seguimiento con malik m?dico, si julieta s?ntomas persisten o empeoran, reaparecen, tiene dolor de buck que empeora constantemente, n?useas / v?mitos, dolor de pecho / dificultad para respirar, regrese al servicio de urgencias Prescriptions: No Action Eliquis 5 mg Tablet 5 mg PO BID RF: 0 ipratropium-albuterol 0.5 mg-3 mg(2.5 mg base)/3 mL solution for nebulization 3 ml inhalation Q4-6H PRN (Reason: Shortness Of Breath) RF: 0 metoprolol succinate 25 mg tablet extended release 24 hr 25 mg PO DAILY RF: 0 fluticasone propionate 50 mcg/actuation spray,suspension 1 spray intranasal DAILY RF: 0 loratadine 10 mg tablet 1 tab PO DAILY RF: 0 rosuvastatin 10 mg tablet 10 mg PO BEDTIME RF: 0 calcium carbonate-vitamin D3 [Calcium 500 With D] 500 mg(1,250mg) -400 unit ta blet 1 tab PO BID RF: 0 Breo Ellipta 200-25 mcg/dose blister with device 1 puff inhalation DAILY RF: 0 amlodipine 5 mg Tablet 5 mg PO DAILY Qty: 30 RF: 0 lisinopril 10 mg tablet 10 mg PO DAILY Qty: 30 RF: 0 prednisone 20 mg tablet 20 mg PO BID Qty: 14 RF: 0 cyclobenzaprine 5 mg tablet 5 mg PO TID PRN (Reason: muscle spasm) Qty: 21 RF: 0 diclofenac sodium [Voltaren Arthritis Pain] 1 % gel 4 g topical QID Qty: 100 RF: 0 cholecalciferol (vitamin D3) 25 mcg (1,000 unit) capsule 25 mcg PO DAILY RF: 0 aspirin [Enteric Coated Aspirin] 81 mg tablet,delayed release (DR/EC) 81 mg PO DAILY RF: 0 levofloxacin 750 mg tablet 750 mg PO DAILY 7 Days Qty: 7 RF: 0 Referrals: Physician,Unknown J [Primary Care Provider] - 2 days Print Language: Colombian
[2021-08-27 22:15] VITALS: BP 134/65; PULSE 97; RESP 18; TEMP 36.8; O2SAT 97
[2021-08-27 22:16] VITALS: BP 131/63; PULSE 93
[2021-08-27 22:17] VITALS: BP 134/65; BP 135/70; PULSE 101; PULSE 97
--- NOTE | 2021-08-27 22:37 | PC.NURSE ---
labs being drawn at this time. given coffee and requesting to go home to deal with daughter. orthos completed.
[2021-08-27 22:44] LABS: Basophils Percent Auto 0.2 % (0-2); Hematocrit 38.6 % (37.0-47.0); Hemoglobin 12.6 g/dl (12.0-16.0); Imm Gran Abs Auto 0.03 X10*3/uL (0.00-0.03); Imm Gran Pct Auto 0.4 % (0.0-0.4); Lymphocytes Absolute Auto 0.5 X10*3/uL (1.2-4.9); Lymphocytes Percent Auto 6.3 % (20-40); MANUAL DIFF FLAG SCAN; Mean Corpuscular HGB Conc 32.6 g/dl (31.0-35.0); Mean Corpuscular Hemoglobin 29.9 pg (27.0-33.0); Mean Corpuscular Volume 91.7 fL (80.0-98.0); Mean Platelet Volume 11.1 fL (9.4-12.3); Monocytes Absolute Auto 0.1 X10*3/uL (0.1-1.2); Monocytes Percent Auto 1.2 % (2-11); Neutrophils Absolute Auto 7.4 x10*3/uL (2.0-8.3); Neutrophils Percent Auto 91.9 % (45-73); Platelet Count 208 X10*3/uL (160-400); Red Blood Count 4.21 X10*6/uL (4.20-5.50); Red Cell Distribution Width 12.9 % (11.0-16.0); SCAN SMEAR FLAG 1; White Blood Count 8.1 X10*3/uL (4.8-10.8)
[2021-08-27 23:03] LABS: SLIDE REVIEW VERIFIED; Troponin-I High Sensitivity < 3.5 ng/L (<3.5-17.0)
[2021-08-27 23:06] LABS: Alanine Aminotransferase 28 U/L (0-31); Alkaline Phosphatase 70 U/L (39-117); Anion Gap 12 (12-20); Aspartate Amino Transferase 27 U/L (5-31); Bilirubin Direct 0.2 mg/dL (0.0-0.5); Bilirubin Total 0.5 mg/dL (0.0-1.0); Blood Urea Nitrogen 11 mg/dL (9-16); Calcium 9.2 mg/dL (8.4-10.2); Carbon Dioxide 25 mmol/L (22-29); Chloride 108 mmol/L (96-108); Creatinine Clr Calc Pharmacy 70.2; Estimated Glomerular Filt Rate > 60; Glucose Random 156 mg/dL (60-115); Lipase 28 U/L (8-78); Magnesium 2.1 mg/dL (1.6-2.6); Potassium 3.8 mmol/L (3.3-5.1); Sodium 141 mmol/L (135-145); Total Protein 6.9 g/dL (6.5-8.0)
[2021-08-27] MEDS: Meclizine HCl 25 MG TABLET PO (23:21)
[2021-08-27] MEDS: Famotidine 20 MG TABLET PO (23:21)
[2021-08-27] MEDS: Magnesium Hydrox/Alum Hydrox 30 ML ORAL.SUSP PO (23:21)
[2021-08-27] MEDS: Butalb/Acetamin/Caff 50/325/40 TABLET 1 TAB PO (23:25)
--- NOTE | 2021-08-27 23:26 | PC.NURSE ---
PT MEDICATED PER EMAR.
[2021-08-27 23:35] VITALS: BP 130/63; PULSE 92; RESP 14; O2SAT 98
[2021-08-27 23:59] LABS: RBC Urine 0-2 /HPF (0); Squamous Epithelial Cell Urine TRACE /LPF; WBC Urine 0-2 /HPF (0-4)
[2021-08-28 00:22] LABS: Appearance Urine CLEAR; Color Urine STRAW; Glucose Urine UA NEG (NEG); Leukocyte Esterase Urine TRACE (NEG); Nitrite Urine NEG (NEG); Specific Gravity - Urine <= 1.005 (1.005-1.025); UACC CULT YES; UACC Culture Trigger YES; Urine Blood NEG (NEG); Urine Ketones NEG (NEG); Urine Protein NEG (NEG-TRACE)
--- NOTE | 2021-08-28 00:38 | PC.NURSE ---
called and coming to [facility] picker pt. iv removed intact. pt verbalized u/s of d/c instructions and left ed ambulatory to wr.
== END 2021-08-28 00:40 | disposition home or self-care (01) ==
PROVIDERS: Physician Assistant; Emergency Provider Student in an Organized Health Care Education/Training Program
DX: R06.02 Shortness of breath (principal); R10.11 Right upper quadrant pain; R42 Dizziness and giddiness; R51.9 Headache, unspecified; F41.1 Generalized anxiety disorder; F43.0 Acute stress reaction; Z79.899 Other long term (current) drug therapy
CPT/HCPCS: 36415; 70450; 76705; 80048; 80076; 81001; 83690; 83735; 84484; 85025; 87086; 93005; 99284

== ENCOUNTER → 2021-10-21 08:47 | Outpatient (BNVA) | payer MEDICARE, SELFPAY | PROVIDERS: Visit Provider Internal Medicine | DX: I48.0 Paroxysmal atrial fibrillation (principal); I25.10 Atherosclerotic heart disease of native coronary artery without angina pectoris; Z86.73 Personal history of transient ischemic attack (TIA), and cerebral infarction without residual deficits | CPT/HCPCS: 99202 ==

== ENCOUNTER 2021-10-21 12:55 | Outpatient (REF) | payer MEDICARE, SELFPAY ==
--- NOTE | ~2021-10-21 | XR_ITS ---
EXAMINATION: 1. RADIOGRAPHS LUMBAR SPINE 2. PELVIC X-RAY CLINICAL INFORMATION: Low back and bilateral hip pain. COMPARISON: Radiographs of the lumbar spine and pelvis 12/05/2020 TECHNIQUE: 5 views of the lumbar spine and a frontal view of the pelvis were obtained. FINDINGS: 5 nonrib-bearing lumbar vertebral bodies are visualized. Mild to moderate levoscoliosis of the lumbar spine is again noted. Normal alignment of the lumbar spine. Lumbar vertebral body heights are maintained. Moderately decreased L5/S1 disc space height. There are degenerative changes of the posterior elements of the lower lumbar spine. Small osteophytes are present throughout the lumbar spine. The pelvic ring is intact. Sacroiliac joints are symmetric. There is neither fracture nor dislocation of either hip. Small calcifications of the pelvis are likely vascular in nature. Moderate stool burden demonstrated within visualized portions of the colon. XR/XR lumbar spine 4V min IMPRESSION: -No fracture of the lumbar spine or pelvis. -Moderate degenerative changes of the lower lumbar spine.
--- NOTE | ~2021-10-21 | XR_ITS ---
EXAMINATION: 1. RADIOGRAPHS LUMBAR SPINE 2. PELVIC X-RAY CLINICAL INFORMATION: Low back and bilateral hip pain. COMPARISON: Radiographs of the lumbar spine and pelvis 12/05/2020 TECHNIQUE: 5 views of the lumbar spine and a frontal view of the pelvis were obtained. FINDINGS: 5 nonrib-bearing lumbar vertebral bodies are visualized. Mild to moderate levoscoliosis of the lumbar spine is again noted. Normal alignment of the lumbar spine. Lumbar vertebral body heights are maintained. Moderately decreased L5/S1 disc space height. There are degenerative changes of the posterior elements of the lower lumbar spine. Small osteophytes are present throughout the lumbar spine. The pelvic ring is intact. Sacroiliac joints are symmetric. There is neither fracture nor dislocation of either hip. Small calcifications of the pelvis are likely vascular in nature. Moderate stool burden demonstrated within visualized portions of the colon. XR/XR pelvis 1-2V IMPRESSION: -No fracture of the lumbar spine or pelvis. -Moderate degenerative changes of the lower lumbar spine.
== END 2021-10-21 12:56 | disposition home or self-care (01) ==
LOC: HO.XRAY 12:55
PROVIDERS: PCP Nurse Practitioner Acute Care; Visit Provider Nurse Practitioner Acute Care
DX: R10.2 Pelvic and perineal pain (principal); G89.29 Other chronic pain; M54.50 Low back pain, unspecified
CPT/HCPCS: 72110; 72170

== ENCOUNTER 2021-10-27 11:02 | Outpatient (REF) | payer MEDICARE, SELFPAY ==
--- NOTE | ~2021-10-27 | XR_ITS ---
EXAMINATION: XR hip LT min 2V CLINICAL INFORMATION: Reason for Exam HIP PAIN COMPARISON: Radiographs 10/21/2021 TECHNIQUE: Two views of the left hip XR/XR hip LT min 2V FINDINGS/IMPRESSION: No acute fracture or dislocation. Left hip joint space is maintained without significant degenerative change. Mild degenerative changes of the pubic symphysis. Calcified phleboliths in the pelvis.
== END 2021-10-27 11:03 | disposition home or self-care (01) ==
LOC: HO.XRAY 11:02
PROVIDERS: PCP Nurse Practitioner Acute Care; Visit Provider Psychiatry & Neurology Neurology
DX: M25.552 Pain in left hip (principal)
CPT/HCPCS: 73502

== ENCOUNTER 2021-11-14 08:59 | Outpatient (REF) | payer MEDICARE, SELFPAY ==
--- NOTE | ~2021-11-14 | XR_ITS ---
EXAMINATION: XR HIP, LEFT CLINICAL INFORMATION: Primary osteoarthritis of the left hip COMPARISON: Left hip x-ray of 10/27/2021 and pelvic x-ray of 10/21/2021 TECHNIQUE: Frontal radiograph of the pelvis and frontal and frog lateral radiographs of the left hip were acquired. of the left hip. FINDINGS: The bony pelvis is intact. No significant arthropathic changes of the left or right hip joint are evident. 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 There are advanced degenerative changes of the lower lumbar spine. XR/XR hip LT w PEL1V IMPRESSION: 1. No fracture, dislocation or significant arthropathic changes in the pelvis or hip joints. 2. Advanced degenerative changes of the lower lumbar spine.
== END 2021-11-14 09:00 | disposition home or self-care (01) ==
LOC: HO.XRAY 08:59
PROVIDERS: PCP Nurse Practitioner Acute Care; Visit Provider Nurse Practitioner Women's Health
DX: M25.552 Pain in left hip (principal)
CPT/HCPCS: 73502

== ENCOUNTER 2021-11-30 12:40 | Emergency (ER) | payer MEDICARE, SELFPAY ==
--- NOTE | ~2021-11-30 | CT_ITS ---
EXAMINATION: CT ABDOMEN AND PELVIS WITHOUT CONTRAST CLINICAL INFORMATION: Left lower quadrant, left pelvic pain into left back/hip COMPARISON: CT 11/27/2017 TECHNIQUE: Multidetector volumetric imaging was performed from the superior aspect of the liver through the pubic symphysis. Sagittal and coronal reformatted images were obtained on the technologist's workstation. This CT examination was performed using dose optimization techniques as appropriate, variously including the following: *Automated exposure control *Adjustment of mA and/or kV according to patient size (this includes techniques or standardized protocols for targeted exams where dose is matched to indication/reason for exam; i.e. extremities or head) *Use of iterative reconstruction technique DLP: 495 mGy-cm FINDINGS: LUNG BASES: The visualized lung bases are unremarkable. The nodule seen on the prior CT abdomen is likely not included in the [id number]. LIVER, GALLBLADDER, AND BILIARY TREE: The liver is normal in size, shape, and attenuation. 4 mm low signal focus in the superior right lobe, too small to characterize, was present on the prior study, likely cyst. No biliary duct dilatation. The gallbladder is unremarkable with no evidence of radiopaque gallstones, gallbladder wall thickening, or obvious pericholecystic inflammatory changes. PANCREAS: Appears unremarkable. No acute inflammatory changes. SPLEEN: Unremarkable. ADRENAL GLANDS: Unremarkable. KIDNEYS AND URETERS: Prominent bilateral renal pelvis, also seen on the prior CTs. The ureters are not dilated. No radiodense renal or ureteral calculi are seen. No perinephric stranding. BLADDER: Unremarkable. GASTROINTESTINAL TRACT: Stomach and small bowel appear unremarkable. There is diverticulosis of the sigmoid colon. No definite findings to suggest diverticulitis. Findings as seen on the prior study as well. Normal appendix. ABDOMINAL WALL: Small fat-containing umbilical hernia. LYMPH NODES: No mesenteric, retroperitoneal or pelvic lymphadenopathy is identified. VASCULAR: Mild atherosclerotic vascular calcification. No aneurysmal dilatation of the abdominal aorta. PELVIC VISCERA: The uterus is not seen. No pelvic masses. OSSEOUS STRUCTURES: Levoconvex scoliosis. Multilevel degenerative changes in the spine. No acute or suspicious osseous abnormality seen. CT/CT abdomen pelvis wo con IMPRESSION: 1. No acute findings identified in the abdomen and pelvis. 2. Sigmoid diverticulosis without evidence of definite diverticulitis. 3. Additional chronic appearing findings, as detailed above. Fleischner guidelines were followed.
[2021-11-30 12:51] VITALS: BP 190/76; PULSE 73; RESP 18; TEMP 36.7; O2SAT 99; BMI 25.9
[2021-11-30 13:09] VITALS: BP 193/73; PULSE 87; RESP 18; TEMP 36.6; O2SAT 99
--- NOTE | 2021-11-30 13:11 | ED_ITS ---
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 She reports seeing her PCP for t his a few weeks ago who check an x-ray and gave her pain medications. She has been taking them with no relief. She denies any urinary symptoms. She denies any nausea, vomiting or diarrhea. She has been having normal bowel movements. She denies any trauma or falls. She decided to come in today for evaluation because she ?just can not take it anymore. ? MD elicited complaint: abdominal pain Pertinent past history: kidney stones Onset (ago): month(s) (3) Pain Consistency: constant Location: LLQ Severity: severe Pain scale (0-10): 10 Quality: sharp Radiation: back Migration to: other (Down the left leg) Exacerbating factors: movement Relieving factors: nothing Context: history of similar episodes Associated symptoms: denies other symptoms Treatments prior to arrival: prescription analgesics Related Data Home Medications Medication Instructions Recorded Confirmed aspirin 81 mg tablet,delayed 81 mg PO DAILY 12/05/20 10/21/21 release (Enteric Coated Aspirin) cholecalciferol (vitamin D3) 25 25 mcg PO DAILY 12/05/20 10/21/21 mcg (1,000 unit) capsule apixaban 5 mg tablet (Eliquis) 5 mg PO BID 01/30/21 10/21/21 calcium carbonate 500 mg-vitamin 1 tab PO BID 08/13/21 10/21/21 D3 10 mcg (400 unit) tablet (Calcium 500 With D) fluticasone furoate 200 1 puff INHALATION DAILY 08/13/21 10/21/21 mcg-vilanterol 25 mcg/dose inhalation powder (Breo Ellipta) fluticasone propionate 50 1 spray INTRANASAL DAILY 08/13/21 10/21/21 mcg/actuation nasal spray,suspension loratadine 10 mg tablet 1 tab PO DAILY 08/13/21 10/21/21 metoprolol succinate 25 mg 25 mg PO DAILY 08/13/21 10/21/21 tablet,extended release 24 hr atorvastatin 40 mg tablet 40 mg PO BEDTIME 10/21/21 10/21/21 Previous Rx's Medication Instructions Recorded amlodipine 5 mg tablet 5 mg PO DAILY #30 tab 08/14/21 lisinopril 10 mg tablet 10 mg PO DAILY #30 tab 08/14/21 diclofenac sodium 1 % topical gel 4 g TOPICAL QID #100 g 08/27/21 (Voltaren Arthritis Pain) ipratropium 0.5 mg-albuterol 3 mg 3 ml INHALATION Q4-6H PRN #180 ml 09/10/21 (2.5 mg base)/3 mL nebulization soln acetaminophen 650 mg 650 mg PO Q8H #60 tab 09/24/21 tablet,extended release diclofenac sodium 1 % topical gel 4 g TOPICAL QID PRN #100 g 10/13/21 (Voltaren Arthritis Pain) cyclobenzaprine 10 mg tablet 10 mg PO TID PRN #10 tab 11/30/21 lidocaine 5 % topical patch 1 patch TOPICAL DAILY #15 ea 11/30/21 prednisone 20 mg tablet 40 mg PO DAILY #10 tab 11/30/21 Allergies Allergy/AdvReac Type Severity Reaction Status Date / Time acetaminophen [From Percocet] Allergy Intermediate Agitated Verified 10/21/21 09:12 oxycodone [From Percocet] Allergy Intermediate Agitated Verified 10/21/21 09:12 Review of Systems Review of Systems Constitutional: No Fever, No Chills ENT/Mouth: No sore throat, No Rhinorrhea, No Swallowing Difficulty Cardiovascular: No Chest Pain, No SOB, No Orthopnea, No Edema Respiratory: No Cough, No Sputum, No Wheezing, No dyspnea Gastrointestinal: No Nausea, No Vomiting, No Diarrhea, + abdominal Pain, No Hematochezia, No Melena Genitourinary: No Dysuria, No Urinary Frequency, No Hematuria Musculoskeletal: + joint pain, + Myalgias Skin: No Skin Lesions, No rash Neuro: No Weakness, + Numbness (left arm x3 months), No Dizziness, No Headache Psych: No Anxiety/Panic, + Depression Heme/Lymph: No Bruising, No Lymphadenopathy Endocrine: No Polyuria, No Polydipsia [facility] Past Medical History Medical History (Updated 11/30/21 @ 15:27 by JANES Syed) Abdominal hyperesthesia Acute CVA (cerebrovascular accident) Afib Dyspepsia GERD (gastroesophageal reflux disease) History of CVA (cerebrovascular accident) HTN (hypertension) IBS (irritable bowel syndrome) Osteoarthritis of lumbar spine Scoliosis Surgical History H/O bilateral breast reduction surgery H/O section H/O oophorectomy Hx of hysterectomy Family History Family History Son HTN (hypertension) Social History Social History Housing: Apartment Alcohol intake: never Patient Tobacco Use Status: Never used Tobacco e-Cigarette/Vaping Use: Never Used Advance Directives: Yes Advance Directives on File: Yes Advance Directives Date on File: 08/13/21 service: No Current occupational status: disabled Cognitive needs: No Hearing needs: No Vision needs: Yes (Glasses) Physical Exam ED Vital Signs: Vital Signs - 24 hr 11/30/21 12:51 11/30/21 13:09 Temperature 98.0 F 98 F Pulse Rate 73 87 Respiratory Rate 18 18 Blood Pressure 190/76 H 193/73 H Pulse Oximetry 99 99 BMI result Body Mass Index 25.9 Appearance: Alert. Oriented X3. No acute distress. Eyes: Pupils equal, round and reactive to light. ENT: Pharynx normal. Neck: Normal inspection. Neck supple. CVS: Normal heart rate and rhythm. Pulses normal. Respiratory: No respiratory distress. Breath sounds normal. Abdomen: Soft wtih mild LLQ tenderness to deep palpation, no rebound or guarding. +BS x4 Back: normal inspection, tenderness of left lumbar area and SI joint Skin: Skin warm and dry. Normal skin color. Normal skin turgor. No rashes. Extremities: No lower extremity edema. Mild left lip tenderness and left pubic bone tenderness. +straight leg raise test on the left at 60 degrees. Neuro: Oriented X 3. No motor deficit. No sensory deficit. Ambulates with steady gait, slight limp Course Course Course Narrative: 76 y/o female presenting with 2-3 months of chronic LLQ pain, left hip pain and left lower back pain radiating into her left leg. Worse with walking and movement. No GI symptoms. Reported hx kidney stone but no urinary symptoms. She recently johnson XR hip and pelvis with no significant abnormality. She has been taking opiates from her PCP with no improvement. Will plan to check urinalysis, basic lab workup and CT scan for further evaluation. Reevaluation(s) Reevaluation #1: UA is normal. Blood work is unremarkable. CT scan does not show any acute cause of her pain. She does have degenerative changes in her spine and given the radiation of the pain down her buttock and left leg this may be due to nerve root compression. She is not diabetic. Will start a trial of oral prednisone and muscle relaxer to see if this helps her pain. She has an appointment with a doctor to give her an injection in this area to see if this helps with the pain coming up in December. She was ambulated with nursing is steady on her feet, slight limp noted but she is refusing a cane or a walker. She is stable for discharge home with outpatient follow-up. MDM - Abdominal Pain Lab Data Result diagrams: 11/30/21 13:06 11/30/21 13:06 Labs: Lab Results 11/30/21 11/30/21 11/30/21 Range/Units 13:06 13:06 13:13 WBC 3.8 L (4.8-10.8) X10*3/uL RBC 4.39 (4.20-5.50) X10*6/uL Hgb 12.9 (12.0-16.0) g/dl Hct 40.0 (37.0-47.0) % MCV 91.1 (80.0-98.0) fL MCH 29.4 (27.0-33.0) pg MCHC 32.3 (31.0-35.0) g/dl RDW 12.2 (11.0-16.0) % Plt Count 207 (160-400) X10*3/uL MPV 11.4 (9.4-12.3) fL Immature Gran % (Auto) 0.3 (0.0-0.4) % Neut % (Auto) 47.8 (45-73) % Lymph % (Auto) 35.8 (20-40) % [place] % (Auto) 10.3 (2-11) % Eos % (Auto) 5.5 H (0-4) % Baso % (Auto) 0.3 (0-2) % Lymph # (Auto) 1.4 (1.2-4.9) X10*3/uL [place] # (Auto) 0.4 (0.1-1.2) X10*3/uL Eos # (Auto) 0.2 (0.0-0.4) X10*3/uL Baso # (Auto) 0.0 (0.0-0.2) X10*3/uL Abs Immat Gran (auto) 0.01 (0.00-0.03) X10*3/uL Absolute Neuts (auto) 1.8 L (2.0-8.3) x10*3/uL Absolute Nucleated RBC 0.000 (0.0-0.012) X10*3/uL Nucleated RBC % (auto) 0.0 (0.0-0.2) /100WBC Sodium 141 (135-145) mmol/L Potassium 4.2 (3.3-5.1) mmol/L Chloride 105 (96-108) mmol/L Carbon Dioxide 30 H (22-29) mmol/L Anion Gap 10 L (12-20) BUN 12 (9-16) mg/dL Creatinine 0.73 (0.5-1.4) mg/dL Estim Creat Clear Calc 64.3 Estimated GFR > 60 Random Glucose 83 (60-115) mg/dL Calcium 10.0 D (8.4-10.2) mg/dL Magnesium 2.0 (1.6-2.6) mg/dL Total Bilirubin 0.6 (0.0-1.0) mg/dL Direct Bilirubin 0.2 (0.0-0.5) mg/dL AST 32 H (5-31) U/L ALT 34 H (0-31) U/L Alkaline Phosphatase 70 (39-117) U/L Total Protein 6.9 (6.5-8.0) g/dL Albumin 4.0 (3.5-5.0) g/dL Urine Color YELLOW Urine Appearance CLEAR Urine pH 7.0 (5.0-8.0) Ur Specific [place] <= 1.005 (1.005-1.025) Urine Protein NEG (NEG-TRACE) MG/DL Urine Glucose (UA) NEG (NEG) MG/DL Urine Ketones NEG (NEG) MG/DL Urine Blood NEG (NEG) Urine Nitrite NEG (NEG) Ur Leukocyte Esterase NEG (NEG) Critical Care Time Critical Care Time Critical Care Time: No Discharge Plan Discharge Clinical Impression: Chronic lumbar radiculopathy Patient Disposition: Home, Self-Care Instructions: Lumbar Radiculopathy (ED), Lower Back Exercises (ED) Additional Instructions: Your workup today was unremarkable. Your pain is most likely due to compression of a nerve in your lower back. Recommend trial of steroid medication to help with inflammation as well as a muscle relaxer. No bending, lifting or twisting. Use ice several times per day for 20 minutes at a time for the next 48 hours and then change to heat. Take medications as prescribed to help with pain and discomfort. Follow up with your Primary Care Doctor this week. If your pain worsens, if you develop new numbness, tingling, weakness, loss of function or incontinence call 911 or come back to the ER right away for evaluation. Prescriptions: New prednisone 20 mg tablet 40 mg PO DAILY Qty: 10 0RF cyclobenzaprine 10 mg tablet 10 mg PO TID PRN (Reason: muscle spasm) Qty: 10 0RF lidocaine 5 % adhesive patch,medicated 1 patch topical DAILY Qty: 15 0RF Rx Instructions: leave on most painful area for up to 12 hrs No Action ipratropium-albuterol 0.5 mg-3 mg(2.5 mg base)/3 mL solution for nebulization 3 ml inhalation Q4-6H PRN (Reason: Shortness Of Breath) Qty: 180 0RF Eliquis 5 mg Tablet 5 mg PO BID 0RF metoprolol succinate 25 mg tablet extended release 24 hr 25 mg PO DAILY 0RF fluticasone propionate 50 mcg/actuation spray,suspension 1 spray intranasal DAILY 0RF loratadine 10 mg tablet 1 tab PO DAILY 0RF calcium carbonate-vitamin D3 [Calcium 500 With D] 500 mg(1,250mg) -400 unit tablet 1 tab PO BID 0RF Breo Ellipta 200-25 mcg/dose blister with device 1 puff inhalation DAILY 0RF amlodipine 5 mg Tablet 5 mg PO DAILY Qty: 30 0RF Protocol: Hold for SBP< HOLD for SBP < : 90 lisinopril 10 mg tablet 10 mg PO DAILY Qty: 30 0RF acetaminophen 650 mg tablet extended release 650 mg PO Q8H Qty: 60 0RF diclofenac sodium [Voltaren Arthritis Pain] 1 % gel 4 g topical QID Qty: 100 0RF Rx Instructions: apply to bilateral upper arm pain 4 x's a day diclofenac sodium [Voltaren Arthritis Pain] 1 % gel 4 g topical QID PRN (Reason: pain (scale score 7-10)) Qty: 100 0RF Rx Instructions: apply to shoulders, low back pain cholecalciferol (vitamin D3) 25 mcg (1,000 unit) capsule 25 mcg PO DAILY 0RF aspirin [Enteric Coated Aspirin] 81 mg tablet,delayed release (DR/EC) 81 mg PO DAILY 0RF atorvastatin 40 mg tablet 40 mg PO BEDTIME 0RF Referrals: Millicent Patricia, [facility] [Primary Care Provider] - 1 week (chronic low back pain radiating into the leg) Print Language: Citizen [place]
[2021-11-30 13:12] LABS: MANUAL DIFF FLAG NO
[2021-11-30] MEDS: HYDROcodone Bit/Acetam 5/325 TABLET 1 TAB PO (13:12)
[2021-11-30 13:13] LABS: Basophils Percent Auto 0.3 % (0-2); Eosinophils Absolute Auto 0.2 X10*3/uL (0.0-0.4); Eosinophils Percent Auto 5.5 % (0-4); Hemoglobin 12.9 g/dl (12.0-16.0); Imm Gran Abs Auto 0.01 X10*3/uL (0.00-0.03); Imm Gran Pct Auto 0.3 % (0.0-0.4); Lymphocytes Absolute Auto 1.4 X10*3/uL (1.2-4.9); Lymphocytes Percent Auto 35.8 % (20-40); Mean Corpuscular HGB Conc 32.3 g/dl (31.0-35.0); Mean Corpuscular Hemoglobin 29.4 pg (27.0-33.0); Mean Corpuscular Volume 91.1 fL (80.0-98.0); Mean Platelet Volume 11.4 fL (9.4-12.3); Monocytes Absolute Auto 0.4 X10*3/uL (0.1-1.2); Monocytes Percent Auto 10.3 % (2-11); Neutrophils Absolute Auto 1.8 x10*3/uL (2.0-8.3); Neutrophils Percent Auto 47.8 % (45-73); Platelet Count 207 X10*3/uL (160-400); Red Blood Count 4.39 X10*6/uL (4.20-5.50); Red Cell Distribution Width 12.2 % (11.0-16.0); White Blood Count 3.8 X10*3/uL (4.8-10.8)
[2021-11-30 13:28] LABS: Appearance Urine CLEAR; Color Urine YELLOW; Glucose Urine UA NEG (NEG); Leukocyte Esterase Urine NEG (NEG); Nitrite Urine NEG (NEG); Specific Gravity - Urine <= 1.005 (1.005-1.025); Urine Blood NEG (NEG); Urine Ketones NEG (NEG); Urine Protein NEG (NEG-TRACE)
[2021-11-30 13:34] LABS: Alanine Aminotransferase 34 U/L (0-31); Alkaline Phosphatase 70 U/L (39-117); Anion Gap 10 (12-20); Aspartate Amino Transferase 32 U/L (5-31); Bilirubin Direct 0.2 mg/dL (0.0-0.5); Bilirubin Total 0.6 mg/dL (0.0-1.0); Blood Urea Nitrogen 12 mg/dL (9-16); Carbon Dioxide 30 mmol/L (22-29); Chloride 105 mmol/L (96-108); Creatinine Clr Calc Pharmacy 64.3; Estimated Glomerular Filt Rate > 60; Glucose Random 83 mg/dL (60-115); Potassium 4.2 mmol/L (3.3-5.1); Sodium 141 mmol/L (135-145); Total Protein 6.9 g/dL (6.5-8.0)
== END 2021-11-30 15:52 | disposition home or self-care (01) ==
PROVIDERS: Physician Assistant; Emergency Provider Emergency Medicine Emergency Medical Services; PCP Nurse Practitioner Acute Care
DX: M54.16 Radiculopathy, lumbar region (principal); R10.32 Left lower quadrant pain; Z79.899 Other long term (current) drug therapy; Z79.82 Long term (current) use of aspirin
CPT/HCPCS: 36415; 74176; 80048; 80076; 81003; 83735; 85025; 96374; 99283; 99284

== ENCOUNTER → 2021-12-01 08:54 | Outpatient (REF) | payer MEDICARE, SELFPAY ==
--- NOTE | 2021-12-01 08:57 | CA_ITS ---
Transthoracic Echocardiogram Patient (Last, First, Middle): Becca Maldonado, Gender: Female Date of : 1945 Age: 76 Procedure Date: 12/01/2021 Procedure Type: Transthoracic Echocardiogram Location: OP Height: 162.56 cm Weight: 72.12 kg BSA: 1.77 m2 Heart Rate: bpm BP: 132 / 90 mmHg Flat Screen Worker: [email or web address] Referring MD: Tylor Martinez MD Symptoms: I48.0 - Paroxysmal atrial fibrillation Study Quality: Fair ECG Rhythm: Sinus Conclusions: - The left ventricular systolic function is normal. The calculated ejection fraction is 61% by biplane method. - No obvious valvular pathology seen on this study. Findings Left Ventricle Normal left ventricular cavity size. There is mildly increased left ventricular wall thickness. The left ventricular systolic function is normal. The calculated ejection fraction is 61% by biplane method. There is no evidence of regional wall motion abnormalities. Evidence suggests grade I (mild) diastolic dysfunction. Right Ventricle Normal right ventricular cavity size and systolic function. Atria Both atria are normal in size. Aortic Valve There is a normal trileaflet aortic valve. There is no aortic valve stenosis. There is no aortic valve regurgitation. Mitral Valve The mitral valve appears normal. There is trace mitral valve regurgitation. There is no mitral valve stenosis. Pulmonic Valve The pulmonic valve was not well visualized. Tricuspid Valve There is trace tricuspid valve regurgitation. The pulmonary artery systolic pressure is normal. Great Vessels The asc aorta and aortic arch are normal in size. Venous The inferior vena cava is normal in size and collapses greater than 50% with inspiration. Pericardium/Pleural There is no evidence of pericardial effusion. Prior Study Comparison No significant change compared to prior study dated: 07/31/2011. Recommendations, Care & Conclusions No obvious valvular pathology seen on this study. Measurements 2D Linear Measurements IVSd: 1.01 0.6-0.9/0.6-1.0 cm LVIDd: 3.15 3.9-5.3/4.2-5.9 cm LVIDd Index: 1.78 2.4-3.2/2.2-3.1 cm/m2 LVIDs: 2.32 2.0-3.6 cm LVPWd: 1.05 0.7-1.1 cm Ao Root: 3.50 2.1-3.5 cm LA Diam: 2.50 2.7-3.8/3.0-4.0 cm LAIDs Index: 1.41 1.5-2.3 cm/m2 LV Mass: 114.57 67-162/88-224 g LV Mass Index: 64.73 43-95/49-115 g/m2 LVOT Diam: 2.00 3.0+(-)1.3 cm 2D Systolic Function EF 4C: 58.50 >55% EF 2C: 60.80 >55% EF BiP: 60.60 >55% Mitral Valve E'Lateral: 5.22 E'Medial: 4.46 Aortic Valve AoV Pk Jagjit: 1.05 AoV Mn Jagjit: 0.69 AoV VTI: 0.18 AoV Pk Grad: 4.00 Aov Mn Grad: 2.00 JANE Cont.VTI: 2.50 LVOT LVOT Pk Jagjit: 0.77 LVOT Mn Jagjit: 0.57 LVOT VTI: 0.14 LVOT Pk Grad: 2.00 LVOT Mn Grad: 1.00 LVOT Diam: 2.00 LVOT Area: 3.14 Diastolic Function E'Medial: 4.46 E' Laterial: 5.22 Right Ventricle TAPSE (mm): 17.70 TVS' Jagjit: 11.30 Tricuspid Valve TR Pk Jagjit: 1.87 TR Pk Grad: 14.00 RA Press: 3.00 RVSP: 17.00 Great Vessels Aorta Ao Root-2D: 3.50 2.0-3.7 cm Ao Asc: 3.50 2.1-3.4 cm Ao Arch: 2.60 Updated in Other Vendor System with Status of Final Tylor Martinez MD electronically signed on 12/02/2021 11:49:41 AM with status of Final
== END ==
LOC: HO.CARD 08:54
PROVIDERS: PCP Nurse Practitioner Acute Care; Visit Provider Internal Medicine
DX: I48.0 Paroxysmal atrial fibrillation (principal); I63.9 Cerebral infarction, unspecified
CPT/HCPCS: 93306

== ENCOUNTER 2021-12-13 12:32 | Emergency (ER) | payer MEDICARE, SELFPAY ==
--- NOTE | ~2021-12-13 | XR_ITS ---
EXAMINATION: XR FINGER, LEFT CLINICAL INFORMATION: Laceration distal tip fifth digit COMPARISON: None TECHNIQUE: Three views of the left fifth digit. FINDINGS: Subtle soft tissue irregularity and swelling along the distal fifth digit. Underlying bony structures appear to be intact with no acute fracture or dislocation. No radiopaque foreign body seen. No soft tissue gas identified. XR/XR finger LT min 2V IMPRESSION: Mild soft tissue swelling but no acute fracture or dislocation and no radiopaque foreign body appreciated.
[2021-12-13 13:03] VITALS: BP 150/70; PULSE 94; RESP 17; TEMP 36.9; O2SAT 98; BMI 21.9
[2021-12-13] MEDS: Lidocaine HCl 1 % MPF 5 ML VIAL SUBCUT (15:52)
--- NOTE | 2021-12-13 16:19 | ED_ITS ---
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 Tetanus out of date. Denies injury to the area. Unknown FB retained. Denies numbness, tingling, weakness Onset (ago): hour(s) Related Data Home Medications Medication Instructions Recorded Confirmed aspirin 81 mg tablet,delayed 81 mg PO DAILY 12/05/20 10/21/21 release (Enteric Coated Aspirin) cholecalciferol (vitamin D3) 25 25 mcg PO DAILY 12/05/20 10/21/21 mcg (1,000 unit) capsule apixaban 5 mg tablet (Eliquis) 5 mg PO BID 01/30/21 10/21/21 calcium carbonate 500 mg-vitamin 1 tab PO BID 08/13/21 10/21/21 D3 10 mcg (400 unit) tablet (Calcium 500 With D) fluticasone furoate 200 1 puff INHALATION DAILY 08/13/21 10/21/21 mcg-vilanterol 25 mcg/dose inhalation powder (Breo Ellipta) fluticasone propionate 50 1 spray INTRANASAL DAILY 08/13/21 10/21/21 mcg/actuation nasal spray,suspension loratadine 10 mg tablet 1 tab PO DAILY 08/13/21 10/21/21 metoprolol succinate 25 mg 25 mg PO DAILY 08/13/21 10/21/21 tablet,extended release 24 hr atorvastatin 40 mg tablet 40 mg PO BEDTIME 10/21/21 10/21/21 Previous Rx's Medication Instructions Recorded amlodipine 5 mg tablet 5 mg PO DAILY #30 tab 08/14/21 diclofenac sodium 1 % topical gel 4 g TOPICAL QID #100 g 08/27/21 (Voltaren Arthritis Pain) ipratropium 0.5 mg-albuterol 3 mg 3 ml INHALATION Q4-6H PRN #180 ml 09/10/21 (2.5 mg base)/3 mL nebulization soln acetaminophen 650 mg 650 mg PO Q8H #60 tab 09/24/21 tablet,extended release diclofenac sodium 1 % topical gel 4 g TOPICAL QID PRN #100 g 10/13/21 (Voltaren Arthritis Pain) lidocaine 5 % topical patch 1 patch TOPICAL DAILY #15 ea 11/30/21 cyclobenzaprine 10 mg tablet 10 mg PO TID PRN #10 tab 12/08/21 lisinopril 20 mg tablet 20 mg PO DAILY #30 tab 12/08/21 prednisone 20 mg tablet 40 mg PO DAILY #10 tab 12/08/21 Allergies Allergy/AdvReac Type Severity Reaction Status Date / Time acetaminophen [From Percocet] Allergy Intermediate Agitated Verified 12/08/21 10:52 oxycodone [From Percocet] Allergy Intermediate Agitated Verified 12/08/21 10:52 Review of Systems Review of Systems: Constitutional: No Fever, No Chills ENT/Mouth: No Ear Pain, No Nasal Congestion,No sore throat, No Rhinorrhea, No Swallowing Difficulty Cardiovascular: No Chest Pain, No SOB Respiratory: No Cough, No Sputum Gastrointestinal: No Nausea, No Vomiting, No Abdominal pain Genitourinary:, No Dysuria, No Hematuria, No Flank Pain Musculoskeletal: No joint pain, No Myalgias, No Joint Swelling Skin: +laceration, No rash Neuro: No Weakness, No Numbness, No Paresthesias Yes all other systems are reviewed and are negative Neurologic: Denies Sensory deficit (Neuro) [facility] Past Medical History Attestation statement: The following information was validated with the patient. Medical History Abdominal hyperesthesia Acute CVA (cerebrovascular accident) Afib Dyspepsia GERD (gastroesophageal reflux disease) History of CVA (cerebrovascular accident) HTN (hypertension) IBS (irritable bowel syndrome) Osteoarthritis of lumbar spine Scoliosis Surgical History H/O bilateral breast reduction surgery H/O section H/O oophorectomy Hx of hysterectomy Family History Family History Son HTN (hypertension) Social History Social History Housing: Apartment Alcohol intake: never Patient Tobacco Use Status: Never used Tobacco e-Cigarette/Vaping Use: Never Used Advance Directives: Yes Advance Directives on File: Yes Advance Directives Date on File: 08/13/21 service: No Current occupational status: disabled Cognitive needs: No Hearing needs: No Vision needs: Yes (Glasses) Physical Exam Vital Signs: Vital Signs: Last Vital Signs Temp 98.5 F 12/13/21 13:03 Pulse 94 12/13/21 13:03 Resp 17 12/13/21 13:03 BP 150/70 H 12/13/21 13:03 Pulse Ox 98 12/13/21 13:03 BMI result Body Mass Index 21.9 Const: General: cooperative, healthy appearing and no acute distress Orientation/consciousness: patient oriented x3 Limitations: no limitations HENMT: Head: Yes normal to inspection and Yes atraumatic Ears: hearing grossly normal bilaterally General nose exam: Normal external nose present Face and sinus: Yes normal facial exam Eyes: General: appearance normal, both eyes and all related structures EOM: EOMs intact bilaterally Neck: Neck: Yes normal visual inspection Resp: Effort & Inspection: normal respiratory effort and no respiratory distress Cardio: Rate: regular rate Peripheral pulses: radial pulses present Skin: Other: +2cm laceration to left lateral (ulnar aspect) 5th digit. No nail involvement. FROM intact. NV intact. Sensation intact to light touch. [id number] opposition intact. Cap refill WNL Rashes: no rashes Neuro: General: patient oriented x3 Gait exam (Neuro): Normal gait present Sensory Exam: No Sensory deficit (Neuro) Extrem: General: Yes normal to inspection Course Course Course Narrative: XR finger LT min 2V IMPRESSION: Mild soft tissue swelling but no acute fracture or dislocation and no radiopaque foreign body appreciated. ? 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 On exam VSS, NAD, well appearing, physical exam as above. No appreciable tendon/nerve injury Plan: X-rays to rule out foreign body, will need suture repair. Will update tetanus. Differential Diagnosis Differential diagnosis: Likely laceration Medical Records Attestation: I reviewed the patient's medical records. Lab Data Attestation: I reviewed the patient's lab results. Procedures Laceration Laceration 1: Site: hand Side (If applicable): left Size (cm): 2 Description: linear Local Anesthetic: lidocaine 1% (Digital block) Amount of anesthesia used (mL): 4 Pre-repair: wound explored and irrigated extensively Skin layer closed with: nylon Size (cm): 4-0 Number of sutures: 7 Technique: simple, interrupted Discharge Plan Discharge Clinical Impression: Finger laceration Patient Disposition: Home, Self-Care Instructions: Finger Laceration (ED) Additional Instructions: Your x-ray did not show any fracture or foreign body/glass Your wound was repaired with sutures You should return to any emergency department or urgent care in 7-10, closer to 10 days to have her sutures removed due to the depth of your cut Keep dry and clean. Apply bacitracin and or Neosporin at home 1 sutures are removed you may apply anti scar cream like mederma If area begins to look infected, is red, there is drainage or you have fever please return to the emergency department Wan radiograf?a no mostr? ninguna fractura o cuerpo extra?o/binu Wan herida fue reparada con suturas. Debe regresar a cualquier departamento de emergencia o atenci?n de urgencia en 7 a 10, m?s cerca de 10 d?as para que le retiren las suturas debido a la profundidad de wan montse. Mant?ngase seco y limpio. Aplicar bacitracina y/o Neosporin en casa 1 se quitan las suturas, puede aplicar crema anticicatrices rebekah mederma Si el ?jovani comienza a verse infectada, est? klever, hay drenaje o tiene fiebre, regrese al departamento de emergencias. Prescriptions: No Action ipratropium-albuterol 0.5 mg-3 mg(2.5 mg base)/3 mL solution for nebulization 3 ml inhalation Q4-6H PRN (Reason: Shortness Of Breath) Qty: 180 0RF Eliquis 5 mg Tablet 5 mg PO BID 0RF lidocaine 5 % adhesive patch,medicated 1 patch topical DAILY Qty: 15 0RF Rx Instructions: leave on most painful area for up to 12 hrs metoprolol succinate 25 mg tablet extended release 24 hr 25 mg PO DAILY 0RF fluticasone propionate 50 mcg/actuation spray,suspension 1 spray intranasal DAILY 0RF loratadine 10 mg tablet 1 tab PO DAILY 0RF calcium carbonate-vitamin D3 [Calcium 500 With D] 500 mg(1,250mg) -400 unit tablet 1 tab PO BID 0RF Breo Ellipta 200-25 mcg/dose blister with device 1 puff inhalation DAILY 0RF amlodipine 5 mg Tablet 5 mg PO DAILY Qty: 30 0RF Protocol: Hold for SBP< HOLD for SBP < : 90 acetaminophen 650 mg tablet extended release 650 mg PO Q8H Qty: 60 0RF cyclobenzaprine 10 mg tablet 10 mg PO TID PRN (Reason: muscle spasm) Qty: 10 0RF prednisone 20 mg tablet 40 mg PO DAILY Qty: 10 0RF lisinopril 20 mg tablet 20 mg PO DAILY Qty: 30 1RF diclofenac sodium [Voltaren Arthritis Pain] 1 % gel 4 g topical QID Qty: 100 0RF Rx Instructions: apply to bilateral upper arm pain 4 x's a day diclofenac sodium [Voltaren Arthritis Pain] 1 % gel 4 g topical QID PRN (Reason: pain (scale score 7-10)) Qty: 100 0RF Rx Instructions: apply to shoulders, low back pain cholecalciferol (vitamin D3) 25 mcg (1,000 unit) capsule 25 mcg PO DAILY 0RF aspirin [Enteric Coated Aspirin] 81 mg tablet,delayed release (DR/EC) 81 mg PO DAILY 0RF atorvastatin 40 mg tablet 40 mg PO BEDTIME 0RF Referrals: ED Physician,Generic [Emergency Provider] - 10 days (Return to any emergency department or urgent care in 7-10 days for suture removal) Print Language: Slovenian
[2021-12-13] MEDS: Diphth,Pertus(ACell),Tet Adult 0.5 ML SYRINGE IM (17:34)
== END 2021-12-13 17:44 | disposition home or self-care (01) ==
PROVIDERS: Emergency Provider Emergency Medicine Emergency Medical Services; PCP Internal Medicine
DX: S61.217A Laceration without foreign body of left little finger without damage to nail, initial encounter (principal); W25.XXXA Contact with sharp glass, initial encounter; I48.91 Unspecified atrial fibrillation; I10 Essential (primary) hypertension; Y93.89 Activity, other specified; Y92.039 Unspecified place in apartment as the place of occurrence of the external cause; Y99.9 Unspecified external cause status; Z79.01 Long term (current) use of anticoagulants; Z79.82 Long term (current) use of aspirin
CPT/HCPCS: 12001; 73140; 90471; 90715; 99284

== ENCOUNTER → 2021-12-18 12:19 | Outpatient (BNVA) | payer MEDICARE, SELFPAY | PROVIDERS: PCP Nurse Practitioner Acute Care; Referring Provider Nurse Practitioner Acute Care; Visit Provider Internal Medicine | DX: I48.0 Paroxysmal atrial fibrillation (principal); I25.10 Atherosclerotic heart disease of native coronary artery without angina pectoris; I10 Essential (primary) hypertension; Z86.73 Personal history of transient ischemic attack (TIA), and cerebral infarction without residual deficits | CPT/HCPCS: 99212 ==

== ENCOUNTER 2022-01-19 11:42 | Outpatient (REF) | payer MEDICARE, SELFPAY ==
[2022-01-19 11:58] LABS: MANUAL DIFF FLAG NO
[2022-01-19 12:14] LABS: Basophils Percent Auto 0.5 % (0-2); Eosinophils Absolute Auto 0.3 X10*3/uL (0.0-0.4); Eosinophils Percent Auto 5.2 % (0-4); Hematocrit 41.2 % (37.0-47.0); Hemoglobin 13.3 g/dl (12.0-16.0); Imm Gran Abs Auto 0.01 X10*3/uL (0.00-0.03); Imm Gran Pct Auto 0.2 % (0.0-0.4); Lymphocytes Absolute Auto 2.1 X10*3/uL (1.2-4.9); Lymphocytes Percent Auto 36.2 % (20-40); Mean Corpuscular HGB Conc 32.3 g/dl (31.0-35.0); Mean Corpuscular Volume 89.8 fL (80.0-98.0); Mean Platelet Volume 11.7 fL (9.4-12.3); Monocytes Absolute Auto 0.5 X10*3/uL (0.1-1.2); Neutrophils Absolute Auto 2.9 x10*3/uL (2.0-8.3); Neutrophils Percent Auto 48.9 % (45-73); Platelet Count 235 X10*3/uL (160-400); Red Blood Count 4.59 X10*6/uL (4.20-5.50); Red Cell Distribution Width 12.8 % (11.0-16.0); White Blood Count 5.9 X10*3/uL (4.8-10.8)
[2022-01-19 12:40] LABS: Alanine Aminotransferase 37 U/L (0-31); Alkaline Phosphatase 68 U/L (39-117); Anion Gap 10 (12-20); Aspartate Amino Transferase 34 U/L (5-31); Bilirubin Total 0.7 mg/dL (0.0-1.0); Blood Urea Nitrogen 19 mg/dL (9-16); Carbon Dioxide 30 mmol/L (22-29); Chloride 104 mmol/L (96-108); Estimated Glomerular Filt Rate > 60; Glucose Random 90 mg/dL (60-115); Potassium 4.7 mmol/L (3.3-5.1); Sodium 139 mmol/L (135-145); Total Protein 6.9 g/dL (6.5-8.0)
[2022-01-23 13:37] LABS: Vitamin D 25-OH, D2 <4 ng/mL; Vitamin D 25-OH, D3 40 ng/mL; Vitamin D 25-OH, Total 40 ng/mL (30-100)
== END 2022-01-19 11:43 | disposition home or self-care (01) ==
LOC: HO.LAB 11:42
PROVIDERS: PCP Nurse Practitioner Acute Care; Visit Provider Nurse Practitioner Acute Care
DX: R42 Dizziness and giddiness (principal)
CPT/HCPCS: 36415; 80053; 82306; 85025

== ENCOUNTER 2022-01-27 13:55 | Outpatient (REF) | payer MEDICARE, SELFPAY ==
--- NOTE | ~2022-01-27 | CT_ITS ---
EXAMINATION: CT ANGIOGRAM BRAIN, HEAD CLINICAL INFORMATION: Dizziness and giddiness. COMPARISON: CTA of the head and neck 08/14/2021. CT scan of the head 08/27/2021. TECHNIQUE: A noncontrast axial CT scan images obtained. Test bolus sequences followed by intravenous administration 75 mL of Omnipaque 350 intravenous contrast. Helical imaging was performed in the axial plane from the skull base to the vertex. Delayed postcontrast imaging of the head was also performed. The data was processed at the blood bank laboratory technologist workstation for generation of MIP sequences. Three-dimensional volume rendered reformatted images were also generated at an offline 3-D workstation. The degree of stenosis determined by NASCET criteria. This CT examination was performed using dose optimization techniques as appropriate, variously including the following: *Automated exposure control *Adjustment of mA and/or kV according to patient size (this includes techniques or standardized protocols for targeted exams where dose is matched to indication/reason for exam; i.e. extremities or head) *Use of iterative reconstruction technique DLP: 2240 mGy-cm FINDINGS: FINDINGS: CT Head: There is no evidence of acute intracranial hemorrhage or territorial infarction. No abnormal mass-effect or midline shift is seen. Waterman to white matter differentiation is well preserved. No extra-axial fluid collections are identified. There is no abnormal enhancement. The ventricles and sulci are commensurately prominent consistent with diffuse volume loss. There are relatively extensive areas of low-attenuation the periventricular subcortical white matter, most consistent with chronic microvascular ischemic changes, and similar compared to prior imaging. The study redemonstrates a chronic infarct in the right cerebellar hemisphere. There are no acute osseous findings. The posterior arch of C1 is unfused. The mastoid air cells and visualized portions of the paranasal sinuses are well-aerated. CTA Head: In the anterior circulation, the distal internal carotid arteries within the neck appear normal. The intracranial internal carotid arteries and their bifurcations appear normal. The middle and anterior cerebral arteries bilaterally demonstrate normal caliber with no evidence of focal stenosis, aneurysm or vascular malformation. There is normal arborization of the middle cerebral artery branches. The anterior communicating artery is normal. In the posterior circulation, the right vertebral artery is dominant, and the left vertebral artery ends primarily in the PICA. The basilar artery appears normal. The posterior communicating arteries are prominent, with origins of the posterior cerebral arteries. The posterior cerebral arteries have normal caliber. The venous sinuses opacify normally. CT/CT angio head IMPRESSION: 1. There are no acute bleeds or territorial infarcts. No masses are demonstrated. There is no abnormal enhancement. 2. There are chronic microvascular ischemic changes and there is a chronic infarct in the right cerebellar hemisphere. There is diffuse volume loss. 3. CTA of the intracranial vasculature does not demonstrate evidence of focal stenosis, aneurysm or vascular malformation.
[2022-01-27] MEDS: iohexoL 350 MG/ML 100 ML INFUS..BTL IV (14:49)
== END 2022-01-27 13:56 | disposition home or self-care (01) ==
LOC: HO.CT 13:55
PROVIDERS: Visit Provider Nurse Practitioner Acute Care
DX: R42 Dizziness and giddiness (principal); Z86.73 Personal history of transient ischemic attack (TIA), and cerebral infarction without residual deficits
CPT/HCPCS: 70496; Q9967

== ENCOUNTER 2022-01-28 13:46 | Outpatient (REF) | payer MEDICARE, SELFPAY ==
--- NOTE | ~2022-01-28 | FL_ITS ---
PROCEDURE: MODIFIED BARIUM SWALLOW CLINICAL INFORMATION: Chronic cough. COMPARISON: None TECHNIQUE: Routine modified barium swallow was performed with patient upright in lateral fluoroscopy mode in presence of speech therapist. FINDINGS: Following oral administration of thin, thick barium, barium puree and cookie coated with barium there is normal oral mastication and propagation of bolus from the oral cavity through the pharynx, into the esophagus without any obstruction, narrowing or stricture. No laryngeal penetration or aspiration seen. There is mild ventral spondylosis at C4-C5, C5-C6 and C6-C7 disc levels. FLUOROSCOPY TIME: 1.3 minutes DOSE AREA PRODUCT: 0.998 uGy-m2 (microgray-meter squared) FL/FL barium swallow modified IMPRESSION: Mild degenerative disc changes with spondylosis C4-C5, C5-C6 and C6-C7 disc levels without visible acute fracture or dislocation.
--- NOTE | 2022-01-29 12:05 | MHC.SL.IMP ---
Date of Plan of Treatment: 01/28/22 Onset of Symptoms/Illness: 01/28/22 Date Treatment Started: 01/28/22 Admitting Diagnosis: Hypertension Hyperlipidemia CVA AFIB GERD IBS Scoliosis Abdominal hyperesthesia Dyspepsia Osteoarthritis of lumbar spine SURGICAL HX: Bilateral breast reduction surgery Oophorectomy Hysterectomy Primary Speech & Language Diagnosis: R13.12 Oropharyngeal Phase Dysphagia Reason for Today's Visit: 47911 Modified Barium Swallow Study Comments: Hx CVA Pre-evaluation Dietary Consistencies: Regular Pre-evaluation Liquid Consistency: Thin Pre-evaluation Medication Administration: Whole with Liquid Medical History: Modified Barium Swallow Study Fluoroscopic Evaluation of Swallowing Function CPT Code 78363 Evaluation Year: 2021 Reason for Study: Patient reports difficulty swallowing. Referring Physician: Hema Tapia MD Evaluating Clinician: Ayala Pham MA, CCC-WATER CONTROL SUPERVISOR Study Number: 1 Patient Name: Becca Schwartz Status: Outpatient, Ambulatory Age: 76 Gender: Female MEDICAL HISTORY: Year of Onset or Diagnosis: 2021 Comorbidities: Hypertension Hyperlipidemia CVA AFIB GERD IBS Scoliosis Abdominal hyperesthesia Dyspepsia Osteoarthritis of lumbar spine SURGICAL HX: Bilateral breast reduction surgery Oophorectomy Hysterectomy Current (pre-evaluation) Intake/Diet: Route: PO Diet Grade: Regular Liquid Consistencies: Thin Pre-Study Functional Oral Intake Scale (FOIS): 7- Total oral intake with no restrictions Pain: Chronic/Ongoing reported at time of study, Throat, rated 4 on scale 0-10 SUBJECTIVE: Patient is a 76 year old female referred for a modified barium swallow study by Hema Tapia MD of Pulmonology. Patient was accompanied to this exam by her . Patient reported pain and ?clicking? on the left side of her jaw when she chews and talks. Additionally she reported throat pain when swallowing, which she rated 4 on a scale 0 to 10. She reports she feels like ?food swirls in her throat? when she takes small bites. This sensation is followed by a ?hard feeling in her chest.? She reports onset of dysphagia ?a while ago,? and that it has been progressively getting worse. Oral Motor Exam Facial Symmetry: Symmetrical Mouth Occlusion: Normal Oral-Facial Lip Pucker Description: Normal Oral-Facial Smile (Lips) Description: Normal Oral-Facial Puff Cheeks Description: Normal Tongue Size: Normal Tongue Excursion Description: Normal Tongue Range of Movement Description: Normal Tongue Speed of Movement Description: Normal Tongue Strength of Movement (against opposing pressure): Normal Tongue Movement Characteristics: Normal/Absent Is patient able to manage secretions?: Yes Food and Liquid Trials: Oral Impairment: Lip Closure: 0=No labial escape Oral Impairment: Tongue Control During Bolus Hold: 0=Cohesive bolus between tongue to palatal seal Oral Impairment: Bolus Preparation/Mastication: 1=Slow prolonged chewing/mashing with complete re-collection Oral Impairment: Bolus Transport/Lingual Motion: 2=Slowed tongue motion Oral Impairment: Oral Residue: 0=Complete oral clearance Oral Impairment:Initiation of Pharyngeal Swallow: 3=Bolus head in pyriforms Pharyngeal Impairment: Soft Palate Elevation: 0=No bolus between soft palate (SP)/pharyngeal wall (PW) Pharyngeal Impairment: Laryngeal Elevation: 1=Partial thyroid cartilage/arytenoids to epiglottic petiole movement Pharyngeal Impairment: Anterior Hyoid Excursion: 1=Partial anterior movement Pharyngeal Impairment: Epiglottic Movement: 0=Complete inversion Pharyngeal Impairment: Laryngeal Vestibular Closure:: 0=Complete: no air/contrast in laryngeal vestibule Pharyngeal Impairment: Pharyngeal Stripping Wave: 0=Present: complete Pharyngeal Impairment: Pharyngeal Contraction: Did not test Pharyngeal Impairment: Pharyngoesophageal Segment Openin=Complete distension and complete duration: no obstruction of flow Pharyngeal Impairment: Tongue Base (TB) Retraction: 2=Narrow column of contrast/air between TB and posterior PW Pharyngeal Impairment: Pharyngeal Residue: 1=Trace residue within or on pharyngeal structures Pharyngeal Impairment: Esophageal Clearance Upright Position: Did not test Impressions and Recommendations Clinical Observations: OBJECTIVE: Time-out: performed at 3:30 Evaluation Start: 3:15; Stop: 3:20 Patient Positioning: Standing Viewing Planes: LATERAL ONLY Contrast: MBSImP? Standardized Protocol using commercially prepared, standardized Barium viscosities, including: Varibar? THIN LIQUID (40% w/v, <15 cps) , 1/2 Shortbread Cookie (1 x1 x.25 ) MBSImP ID: [id number] MBSImP Results: Lip closure for intraoral bolus containment resulted in no labial escape. Tongue control during bolus hold maintained a cohesive bolus held between tongue to palate seal. Bolus preparation and mastication resulted in slow, prolonged chewing/mashing but with complete re-collection. Bolus transport/lingual motion was with slowed tongue motion. Oral residue was not observed. There was complete oral clearance. Initiation of the pharyngeal swallow occurred when the bolus head was in the pyriform sinuses. Soft palate elevation resulted in no bolus between the soft palate and the pharyngeal wall. Laryngeal elevation was decreased, with partial superior movement of the thyroid cartilage/partial approximation of the arytenoids to the epiglottic petiole. Anterior hyoid excursion demonstrated partial anterior movement. Epiglottic movement resulted in complete inversion. Laryngeal vestibular closure was complete, as indicated by no air or contrast within the laryngeal vestibule at the height of the swallow. Pharyngeal stripping wave was present and complete. Pharyngeal contraction could not be determined due to logistical reasons not related to physiologic impairment. Pharyngoesophageal segment opening was completely distended for complete duration with no obstruction of bolus flow. Tongue base retraction allowed a narrow column of contrast or air between the retracted tongue base and the posterior pharyngeal wall. Pharyngeal residue was a trace within or on pharyngeal structures. Esophageal clearance in the upright position could not be assessed due to logistical reasons not related to physiologic impairment. Oral Impairment Score: 6 Pharyngeal Impairment Score: 4 (absence of score, component 13) Esophageal Impairment Score: --- (absence of score, component 17) Laryngeal Penetration and Aspiration: Neither penetration nor aspiration was observed in today's study with Cookie, Thin. ASSESSMENT: Clinician Assessment: This exam was conducted by a multidisciplinary team, which included a speech pathologist, radiologist, and hazardous materials waste technician. Patient was standing for lateral view only. She trialed the following liquid and solid consistencies: thin liquid barium by cup (5 mL amount and cup sip amount), pureed solid (mixture applesauce with barium paste), ground solid (chicken salad with barium paste), regular solid (Teressa Doone cookie coated with barium paste). Good lip closure. Good tongue control. Patient maintained cohesive bolus between tongue to palatal seal. Mastication was mildly prolonged, but resulted in complete oral recollection. Slowed posterior lingual transport of bolus. Swallow trigger was delayed, initiated as bolus head reached pyriform sinuses. No nasopharyngeal reflux. Partial laryngeal elevation with partial anterior hyoid excursion. Complete epiglottic inversion. Complete laryngeal vestibular closure. Patient demonstrated good airway protection. No evidence of aspiration or penetration with solids and liquids during this exam. Note very trace residue on posterior pharyngeal wall. Good clearing of valleculae and pyriform sinuses. No obstruction of flow through pharyngoesophageal segment opening. Radiologist noted cervical bone spurs. Liquid Intake Recommendation: Thin Liquid Intake Strategies: Small Sips Dietary Recommendations: Regular Medication Administration: Whole with Liquid Please contact the pharmacy regarding appropriate crushable or liquid drug formulations that are available whenever modified delivery is recommended. Compensatory Strategies Recommended: Sitting Upright (90 deg), Alternate Liquids/Solids, Rate of Ingestion Change Supervision during eating and or drinking: None Needed Recommendation for Speech Therapy: NA:Typical Evaluation PLAN: Intake Recommendations: Route: PO Diet Grade: Regular Liquid Consistencies: Thin Post-Study Functional Oral Intake Scale (FOIS): 7- Total oral intake with no restrictions This exam was unremarkable. Recommend patient to resume unmodified diet regular solids and thin liquids. Further speech intervention is no longer warranted. Patient may benefit from a consultation with a dentist for reported ?jaw clicking,? with ENT for reported throat pain. Therapy Recommendations: Therapy will be discontinued Prognosis for Improvement: The prognosis for the patient to meet nutritional needs by mouth is excellent based on degree of impairment. Clinician - Supplemental, Miscellaneous Communication: It is important to note MBSS objective studies are snapshots in time and Patient function might vary with factors such as time of day or concomitant medical conditions. For this reason, the final treatment plan for this patient should rest with their medical care team. Additional recommendations should be considered with the totality of the Patient in mind. Thank for the opportunity to participate in the care of this patient. If you have any questions about the content of this report, please contact the [facility] at [facility]. Education: Education regarding findings from today's study and plans for therapy were provided to Patient and family/caregiver through Verbal Instruction. Understanding was expressed by the Patient and family/caregiver. Screen Door Maker Clinician/Clinical Fellow: No Supervisory Statement: N/A Speech Language Pathologist: Ayala Pham M.A., CCC-WATER CONTROL SUPERVISOR
== END 2022-01-28 13:47 | disposition home or self-care (01) ==
LOC: HO.XRAY 13:46
PROVIDERS: Visit Provider Internal Medicine Pulmonary Disease
DX: R05.3 Chronic cough (principal); R13.12 Dysphagia, oropharyngeal phase
CPT/HCPCS: 74230; 92611

== ENCOUNTER → 2022-02-10 09:33 | Outpatient (BNVA) | payer MEDICARE, SELFPAY | PROVIDERS: PCP Nurse Practitioner Acute Care; Referring Provider Nurse Practitioner Acute Care; Visit Provider Internal Medicine | DX: I48.0 Paroxysmal atrial fibrillation (principal); I25.10 Atherosclerotic heart disease of native coronary artery without angina pectoris; I10 Essential (primary) hypertension; R60.0 Localized edema; Z86.73 Personal history of transient ischemic attack (TIA), and cerebral infarction without residual deficits | CPT/HCPCS: 99212 ==

== ENCOUNTER 2022-02-14 09:13 | Outpatient (REF) | payer OTHER, SELFPAY ==
--- NOTE | ~2022-02-14 | MM_ITS ---
EXAMINATION: MM SCREENING DIGITAL BREAST TOMOSYNTHESIS, BILATERAL CLINICAL INFORMATION: Screening. Asymptomatic. The lifetime risk of breast cancer based on the Tyrer-Cuzick Model is 3%. COMPARISON: Mammography: 12/09/2018, 02/20/2018, 10/13/2016 TECHNIQUE: Digital breast tomosynthesis is performed in both the craniocaudal and mediolateral oblique views along with computer-aided detection (CAD). Synthesized 2D images are generated from the tomosynthesis. FINDINGS: There are scattered areas of fibroglandular density (ACR BI-RADS breast composition Category b). There are no significant masses, abnormal calcifications, or other abnormalities. Breast tissue composition borders on predominantly fatty. Background stromal and fibroglandular densities are stable. MM/MM tomosynthesis screening BI IMPRESSION: No mammographic evidence of malignancy. ASSESSMENT: BI-RADS 1: Negative RECOMMENDATION: Routine annual mammography screening. This patient's information was entered into a reminder system with a target due date for their next mammogram.
== END 2022-02-14 09:14 | disposition home or self-care (01) ==
LOC: HO.MAMMO 09:13
PROVIDERS: PCP Nurse Practitioner Acute Care; Visit Provider Internal Medicine
DX: Z12.31 Encounter for screening mammogram for malignant neoplasm of breast (principal)
CPT/HCPCS: 77063; 77067

== ENCOUNTER → 2022-02-19 12:30 | Outpatient (BNVA) | payer OTHER, SELFPAY | PROVIDERS: PCP Nurse Practitioner Acute Care; Visit Provider Internal Medicine | DX: I48.0 Paroxysmal atrial fibrillation (principal); I25.10 Atherosclerotic heart disease of native coronary artery without angina pectoris; I10 Essential (primary) hypertension; I63.9 Cerebral infarction, unspecified; R60.0 Localized edema | CPT/HCPCS: 99212 ==

== ENCOUNTER 2022-02-20 11:12 | Outpatient (REF) | payer OTHER, SELFPAY ==
[2022-02-20 11:36] LABS: MANUAL DIFF FLAG NO
[2022-02-20 11:50] LABS: Basophils Percent Auto 0.1 % (0-2); Eosinophils Percent Auto 0.1 % (0-4); Hematocrit 38.4 % (37.0-47.0); Hemoglobin 12.2 g/dl (12.0-16.0); Imm Gran Abs Auto 0.06 X10*3/uL (0.00-0.03); Imm Gran Pct Auto 0.4 % (0.0-0.4); Lymphocytes Percent Auto 6.6 % (20-40); Mean Corpuscular HGB Conc 31.8 g/dl (31.0-35.0); Mean Corpuscular Hemoglobin 29.3 pg (27.0-33.0); Mean Corpuscular Volume 92.3 fL (80.0-98.0); Mean Platelet Volume 12.1 fL (9.4-12.3); Monocytes Absolute Auto 0.9 X10*3/uL (0.1-1.2); Monocytes Percent Auto 5.6 % (2-11); Neutrophils Absolute Auto 13.2 x10*3/uL (2.0-8.3); Neutrophils Percent Auto 87.2 % (45-73); Platelet Count 246 X10*3/uL (160-400); Red Blood Count 4.16 X10*6/uL (4.20-5.50); Red Cell Distribution Width 13.8 % (11.0-16.0); White Blood Count 15.2 X10*3/uL (4.8-10.8)
[2022-02-20 11:58] LABS: Estimated Average Glucose 103 mg/dL; Hemoglobin A1c % 5.2 %
[2022-02-20 12:16] LABS: Alanine Aminotransferase 26 U/L (0-31); Albumin Level 4.1 g/dL (3.5-5.0); Alkaline Phosphatase 67 U/L (39-117); Anion Gap 12 (12-20); Aspartate Amino Transferase 24 U/L (5-31); Bilirubin Total 0.3 mg/dL (0.0-1.0); Blood Urea Nitrogen 17 mg/dL (9-16); Calcium 9.6 mg/dL (8.4-10.2); Carbon Dioxide 28 mmol/L (22-29); Chloride 108 mmol/L (96-108); Cholesterol 155 mg/dL; Estimated Glomerular Filt Rate > 60; Glucose Fasting 77 mg/dL (60-99); HDL Cholesterol 60 mg/dL; LDL Cholesterol Calculated 89 mg/dl; Potassium 4.7 mmol/L (3.3-5.1); Sodium 143 mmol/L (135-145); Total Protein 7.3 g/dL (6.5-8.0); Triglycerides 31 mg/dL
[2022-02-20 12:21] LABS: B Type Natriuretic Peptide 79 pg/mL (<100)
[2022-02-20 12:45] LABS: Folate 17.4 ng/mL (> or = 4.0); Vitamin B12 537 pg/mL (200-900)
[2022-02-25 13:32] LABS: Vitamin D 25-OH, D2 <4 ng/mL; Vitamin D 25-OH, D3 40 ng/mL; Vitamin D 25-OH, Total 40 ng/mL (30-100)
== END 2022-02-20 11:13 | disposition home or self-care (01) ==
LOC: HO.LAB 11:12
PROVIDERS: PCP Nurse Practitioner Acute Care; Visit Provider Internal Medicine
DX: E78.00 Pure hypercholesterolemia, unspecified (principal); R60.0 Localized edema
CPT/HCPCS: 36415; 80053; 80061; 82306; 82607; 82746; 83036; 83880; 85025

== ENCOUNTER 2022-03-03 09:12 | Outpatient (REF) | payer OTHER, SELFPAY ==
--- NOTE | ~2022-03-03 | US_ITS ---
EXAMINATION: US ABDOMEN COMPLETE CLINICAL INFORMATION: Right upper quadrant pain. COMPARISON: CT abdomen and pelvis 11/30/2021. Limited abdominal ultrasound 08/27/2021. Renal ultrasound 03/07/2021. TECHNIQUE: Real-time imaging of the abdominal viscera. FINDINGS: PANCREAS: The pancreas has homogeneous echotexture and normal size. ABDOMINAL AORTA: The proximal, mid, and distal segments are normal in caliber. INFERIOR VENA CAVA: Visualized portions are normal. LIVER: Normal. The liver is normal in size. The liver contour is normal. Parenchymal echogenicity is normal. No focal hepatic lesion. There is no intrahepatic biliary duct dilatation seen. GALLBLADDER: Gallbladder wall thickness is 0.13 cm. The gallbladder is physiologically distended without evidence of stones, sludge, polyps, wall thickening or pericholecystic fluid. COMMON BILE DUCT: Normal in caliber measuring 0.3 cm in diameter. RIGHT KIDNEY: There is mild pelvic fullness versus extrarenal right kidney pelvis. No hydronephrosis. No renal calculi or focal parenchymal lesions. The kidney measures 11.2 cm in maximum dimension. LEFT KIDNEY: There is mild pelvic fullness versus extrarenal pelvis. No hydronephrosis. No renal calculi or focal parenchymal lesions. The kidney measures 10.1 cm in maximum dimension. SPLEEN: Normal. The spleen measures 9.2 cm in maximum dimension. FREE FLUID: None. US/US abdomen complete IMPRESSION: Mild bilateral pelvic fullness versus extrarenal kidney pelvis. Rest of the abdominal ultrasound is unremarkable.
== END 2022-03-03 09:13 | disposition home or self-care (01) ==
LOC: HO.US 09:12
PROVIDERS: PCP Nurse Practitioner Acute Care; Visit Provider Internal Medicine Medical Oncology
DX: R10.11 Right upper quadrant pain (principal)
CPT/HCPCS: 76700

== ENCOUNTER 2022-03-29 16:26 | Emergency (ER) | payer OTHER, SELFPAY ==
--- NOTE | ~2022-03-29 | CT_ITS ---
EXAMINATION: CT HEAD WITHOUT CONTRAST CLINICAL INFORMATION: Dizziness COMPARISON: None TECHNIQUE: Contiguous axial imaging was performed from the skull base to vertex without intravenous administration of contrast. This CT examination was performed using dose optimization techniques as appropriate, variously including the following: *Automated exposure control *Adjustment of mA and/or kV according to patient size (this includes techniques or standardized protocols for targeted exams where dose is matched to indication/reason for exam; i.e. extremities or head) *Use of iterative reconstruction technique DLP: 703 mGy-cm FINDINGS: There is no evidence of acute intracranial hemorrhage or territorial infarction. No abnormal mass effect or midline shift is seen. [place] to white matter differentiation is well preserved. No extra-axial fluid collections are identified. The ventricles are normal in size. Scattered areas of white matter ischemic change. The osseous structures and soft tissues are normal. The mastoid air cells and visualized portions of the paranasal sinuses are well aerated. CT/CT head/brain wo con IMPRESSION: No acute intracranial pathology. Scattered white matter ischemic changes
[2022-03-29 16:34] VITALS: BP 115/70; BP 138/74; PULSE 106; PULSE 113; RESP 18; TEMP 36.8; O2SAT 100; O2SAT 98; BMI 28.3
[2022-03-29 16:47] LABS: MANUAL DIFF FLAG NO
[2022-03-29 16:57] LABS: Basophils Percent Auto 0.5 % (0-2); Eosinophils Absolute Auto 0.1 X10*3/uL (0.0-0.4); Eosinophils Percent Auto 1.6 % (0-4); Hematocrit 36.7 % (37.0-47.0); Hemoglobin 11.8 g/dl (12.0-16.0); Imm Gran Abs Auto 0.01 X10*3/uL (0.00-0.03); Imm Gran Pct Auto 0.2 % (0.0-0.4); Lymphocytes Absolute Auto 1.7 X10*3/uL (1.2-4.9); Lymphocytes Percent Auto 30.2 % (20-40); Mean Corpuscular HGB Conc 32.2 g/dl (31.0-35.0); Mean Corpuscular Hemoglobin 29.1 pg (27.0-33.0); Mean Corpuscular Volume 90.6 fL (80.0-98.0); Mean Platelet Volume 11.4 fL (9.4-12.3); Monocytes Absolute Auto 0.5 X10*3/uL (0.1-1.2); Monocytes Percent Auto 8.5 % (2-11); Neutrophils Absolute Auto 3.4 x10*3/uL (2.0-8.3); Platelet Count 234 X10*3/uL (160-400); Red Blood Count 4.05 X10*6/uL (4.20-5.50); White Blood Count 5.7 X10*3/uL (4.8-10.8)
[2022-03-29 17:08] LABS: Anion Gap 16 (12-20); Blood Urea Nitrogen 22 mg/dL (9-16); Calcium 9.5 mg/dL (8.4-10.2); Carbon Dioxide 23 mmol/L (22-29); Chloride 105 mmol/L (96-108); Creatinine Clr Calc Pharmacy 46.1; Estimated Glomerular Filt Rate 51; Glucose Random 89 mg/dL (60-115); Potassium 3.6 mmol/L (3.3-5.1); Sodium 140 mmol/L (135-145)
--- NOTE | 2022-03-29 19:42 | ED_ITS ---
HPI - Dizziness General Chief Complaint: Dizziness Stated Complaint: DIZZY,LEG PAIN/SWELLING PER EMS Time Seen by Provider: 03/29/22 16:55 Source: patient and asl interpreter Mode of arrival: ambulatory Limitations: no limitations History of Present Illness HPI Narrative: 76 yo female with hx of PAF on eliquis, HTN, HLD, cerebellar stroke, LE edema on lasix, cognitive impairment. 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 The patient also notes that she takes her medications regularly but her states she does not and takes them most of the time but does miss doses MD elicited complaint: dizziness and lightheadedness Pertinent past history: other (cerebellar stroke) Onset (ago): month(s) (3) Timing: gradual onset and intermittent Severity: moderate Description: lightheadedness Context: change in body position History of similar symptoms: Yes Exacerbating factors: movement/ambulation and change in body position Relieving factors: nothing Associated symptoms: other (LE edema, chronic L hip pain) Related Data Home Medications Medication Instructions Recorded Confirmed aspirin 81 mg tablet,delayed 81 mg PO DAILY 12/05/20 02/26/22 release (Enteric Coated Aspirin) cholecalciferol (vitamin D3) 25 25 mcg PO DAILY 12/05/20 02/26/22 mcg (1,000 unit) capsule apixaban 5 mg tablet (Eliquis) 5 mg PO BID 01/30/21 02/26/22 calcium carbonate 500 mg-vitamin 1 tab PO BID 08/13/21 02/26/22 D3 10 mcg (400 unit) tablet (Calcium 500 With D) fluticasone propionate 50 1 spray intranasal DAILY 08/13/21 02/26/22 mcg/actuation nasal spray,suspension loratadine 10 mg tablet 1 tab PO DAILY 08/13/21 02/26/22 metoprolol succinate 25 mg 25 mg PO DAILY 08/13/21 02/26/22 tablet,extended release 24 hr Previous Rx's Medication Instructions Recorded ipratropium 0.5 mg-albuterol 3 mg 3 ml inhalation Q4-6H PRN 09/10/21 (2.5 mg base)/3 mL nebulization Shortness Of Breath #180 mL soln acetaminophen 650 mg 650 mg PO Q8H pain #60 tabs 09/24/21 tablet,extended release diclofenac sodium 1 % topical gel 4 g topical QID PRN pain (scale 10/13/21 (Voltaren Arthritis Pain) score 7-10) #100 grams lidocaine 5 % topical patch 1 patch topical DAILY #15 ea 11/30/21 cyclobenzaprine 10 mg tablet 10 mg PO TID PRN muscle spasm #10 12/08/21 tabs atorvastatin 80 mg tablet 80 mg PO QPM #90 tabs 12/18/21 meclizine 25 mg tablet 25 mg PO BID PRN dizziness #30 tabs 01/14/22 lisinopril 40 mg tablet 40 mg PO DAILY #90 tabs 02/10/22 furosemide 40 mg tablet (Lasix) 40 mg PO BID #60 tabs 02/19/22 compress.stocking,knee,reg,med #2 ea 02/26/22 fluticasone furoate 200 1 ea PO DAILY #60 ea 03/03/22 mcg-vilanterol 25 mcg/dose inhalation powder (Breo Ellipta) Allergies Allergy/AdvReac Type Severity Reaction Status Date / Time oxycodone [From Percocet] Allergy Intermediate Agitated Verified 02/26/22 09:36 Review of Systems Review of Systems: Constitutional : No Weight loss, No Fever, No Chills, No Fatigue, No Malaise ENT/Mouth : No sore throat, No Rhinorrhea Eyes: No Eye Pain, No Swelling, No Redness Cardiovascular : No Chest Pain, No SOB, pos Dyspnea on Exertion, No Orthopnea, pos Edema, No Palpitations Respiratory : No Cough, No Sputum, No Wheezing Gastrointestinal : No Nausea, No Vomiting, No Diarrhea, No Constipation, No abdominal Pain, No Hematochezia, No Melena Genitourinary : No Dysuria, No Urinary Frequency, No Hematuria, Musculoskeletal : No joint pain, No Myalgias, No Joint Swelling Skin : No Skin Lesions, No rash Neuro : No Weakness, No Numbness, pos Dizziness, No Headache Psych : No Anxiety/Panic, No Depression Heme/Lymph: No Bruising, No Bleeding,No Lymphadenopathy Endocrine : No Polyuria, No Polydipsia All other systems reviewed and are negative PMFSH Past Medical History Attestation statement: The following information was validated with the patient. Medical History Abdominal hyperesthesia Acute CVA (cerebrovascular accident) Dyspepsia GERD (gastroesophageal reflux disease) History of CVA (cerebrovascular accident) IBS (irritable bowel syndrome) Osteoarthritis of lumbar spine Scoliosis Surgical History H/O bilateral breast reduction surgery H/O section H/O oophorectomy Hx of hysterectomy Family History Family History Son HTN (hypertension) Social History Social History (Updated 02/26/22 @ 09:36 by Kyra Spencer CMA) Household Members: None Housing: Apartment Are you a primary medical care evaluation specialist to a significant other at home: No Do you presently have visiting nurse or other home services: Yes (pulverizer tender) Alcohol intake: never Patient Tobacco Use Status: Never used Tobacco e-Cigarette/Vaping Use: Never Used Advance Directives: Yes Advance Directives on File: Yes Advance Directives Date on File: 08/13/21 service: No Current occupational status: disabled Cognitive needs: No Hearing needs: No Vision needs: Yes (Glasses) Physical Exam Vital Signs: Vital Signs: Last Vital Signs Temp 97.8 F 03/29/22 22:04 Pulse 86 03/29/22 22:04 Resp 18 03/29/22 22:04 BP 116/59 L 03/29/22 22:04 Pulse Ox 98 03/29/22 22:04 O2 Del Method 03/29/22 22:04 BMI result Body Mass Index 28.3 Appearance: Alert. Oriented X3. No acute distress. Eyes: Pupils equal, round and reactive to light. ENT: Pharynx normal. Neck: Normal inspection. Neck supple. CVS: Normal heart rate and rhythm. Pulses normal. Respiratory: No respiratory distress. Breath sounds normal. Abdomen: Soft and non-tender. Skin: Skin warm and dry. Normal skin color. Normal skin turgor. Extremities: pitting lower extremity edema bilateral 2+ Neuro: Oriented X 3. No motor deficit. No sensory deficit. Course Course Course Narrative: walked around the ED no issues, steady gait, unfortunately a lot of this is a chronic complaint and the pateint is not compliant with her medications, she can follow up with her PCP MDM - Dizziness MDM Narrative Medical decision making narrative: 76 yo female with hx of PAF on eliquis, HTN, HLD, cerebellar stroke, LE edema on lasix, cognitive impairment here with c/o worsening LE edema, dizziness, L hip pain, fatigue for 3 months - she is not fully compliant with her medications and does not always wear her compression stockings. At this time will need labs, EK G, CT head for ICH. IV lasix. Dispo per results and findings. Lab Data Result diagrams: 03/29/22 16:38 03/29/22 16:38 Labs: Lab Results 03/29/22 03/29/22 03/29/22 Range/Units 16:38 16:38 20:39 WBC 5.7 (4.8-10.8) X10*3/uL RBC 4.05 L (4.20-5.50) X10*6/uL Hgb 11.8 L (12.0-16.0) g/dl Hct 36.7 L (37.0-47.0) % MCV 90.6 (80.0-98.0) fL MCH 29.1 (27.0-33.0) pg MCHC 32.2 (31.0-35.0) g/dl RDW 13.0 (11.0-16.0) % Plt Count 234 (160-400) X10*3/uL MPV 11.4 (9.4-12.3) fL Immature Gran % (Auto) 0.2 (0.0-0.4) % Neut % (Auto) 59.0 (45-73) % Lymph % (Auto) 30.2 (20-40) % [place] % (Auto) 8.5 (2-11) % Eos % (Auto) 1.6 (0-4) % Baso % (Auto) 0.5 (0-2) % Lymph # (Auto) 1.7 (1.2-4.9) X10*3/uL [place] # (Auto) 0.5 (0.1-1.2) X10*3/uL Eos # (Auto) 0.1 (0.0-0.4) X10*3/uL Baso # (Auto) 0.0 (0.0-0.2) X10*3/uL Abs Immat Gran (auto) 0.01 (0.00-0.03) X10*3/uL Absolute Neuts (auto) 3.4 (2.0-8.3) x10*3/uL Absolute Nucleated RBC 0.000 (0.0-0.012) X10*3/uL Nucleated RBC % (auto) 0.0 (0.0-0.2) /100WBC Sodium 140 (135-145) mmol/L Potassium 3.6 D (3.3-5.1) mmol/L Chloride 105 (96-108) mmol/L Carbon Dioxide 23 (22-29) mmol/L Anion Gap 16 (12-20) BUN 22 H D (9-16) mg/dL Creatinine 1.06 (0.5-1.4) mg/dL Estim Creat Clear Calc 46.1 Estimated GFR 51 Random Glucose 89 (60-115) mg/dL Calcium 9.5 D (8.4-10.2) mg/dL Magnesium 2.1 (1.6-2.6) mg/dL Total Bilirubin 0.5 (0.0-1.0) mg/dL Direct Bilirubin 0.3 (0.0-0.5) mg/dL AST 26 (5-31) U/L ALT 23 (0-31) U/L Alkaline Phosphatase 66 (39-117) U/L Troponin I High Sens (<3.5-17.0) ng/L B-Natriuretic Peptide (<100) pg/mL Total Protein 7.3 (6.5-8.0) g/dL Albumin 4.2 (3.5-5.0) g/dL 03/29/22 Range/Units 20:39 WBC (4.8-10.8) X10*3/uL RBC (4.20-5.50) X10*6/uL Hgb (12.0-16.0) g/dl Hct (37.0-47.0) % MCV (80.0-98.0) fL MCH (27.0-33.0) pg MCHC (31.0-35.0) g/dl RDW (11.0-16.0) % Plt Count (160-400) X10*3/uL MPV (9.4-12.3) fL Immature Gran % (Auto) (0.0-0.4) % Neut % (Auto) (45-73) % Lymph % (Auto) (20-40) % [place] % (Auto) (2-11) % Eos % (Auto) (0-4) % Baso % (Auto) (0-2) % Lymph # (Auto) (1.2-4.9) X10*3/uL [place] # (Auto) (0.1-1.2) X10*3/uL Eos # (Auto) (0.0-0.4) X10*3/uL Baso # (Auto) (0.0-0.2) X10*3/uL Abs Immat Gran (auto) (0.00-0.03) X10*3/uL Absolute Neuts (auto) (2.0-8.3) x10*3/uL Absolute Nucleated RBC (0.0-0.012) X10*3/uL Nucleated RBC % (auto) (0.0-0.2) /100WBC Sodium (135-145) mmol/L Potassium (3.3-5.1) mmol/L Chloride (96-108) mmol/L Carbon Dioxide (22-29) mmol/L Anion Gap (12-20) BUN (9-16) mg/dL Creatinine (0.5-1.4) mg/dL Estim Creat Clear Calc Estimated GFR Random Glucose (60-115) mg/dL Calcium (8.4-10.2) mg/dL Magnesium (1.6-2.6) mg/dL Total Bilirubin (0.0-1.0) mg/dL Direct Bilirubin (0.0-0.5) mg/dL AST (5-31) U/L ALT (0-31) U/L Alkaline Phosphatase (39-117) U/L Troponin I High Sens < 3.5 (<3.5-17.0) ng/L B-Natriuretic Peptide 16 (<100) pg/mL Total Protein (6.5-8.0) g/dL Albumin (3.5-5.0) g/dL ECG Data Attestation: I personally reviewed and interpreted this ECG as follows: ECG interpretation date: 03/29/22 ECG interpretation time: 20:40 Interpretation: Rate: 89 Rhythm: NSR [place]: normal Normal P waves. Normal GISSELL. Normal QRS complex. ST T wave : no DION, normal qTC: normal prior studies: no acute ischemia The study has been interpreted contemporaneously by me. . Discharge Plan Discharge Clinical Impression: Dizziness, Pedal edema Patient Disposition: Home, Self-Care Instructions: Dizziness (ED), Leg Edema (ED) Additional Instructions: return to ED for any worsening symptoms or concerns it is important you take your water pill as prescribed, you should wear compression stockings every day blood work and head CT within normal limits today given IV diuretic while in emergency department Prescriptions: No Action ipratropium-albuterol 0.5 mg-3 mg(2.5 mg base)/3 mL solution for nebulization 3 ml inhalation Q4-6H PRN (Reason: Shortness Of Breath) Qty: 180 0RF (DME) compress.stocking,knee,reg,med Misc See Rx Instructions .Route Qty: 2 0RF Rx Instructions: As directed Breo Ellipta 200-25 mcg/dose blister with device 1 ea PO DAILY Qty: 60 6RF Eliquis 5 mg Tablet 5 mg PO BID lidocaine 5 % adhesive patch,medicated 1 patch topical DAILY Qty: 15 0RF Rx Instructions: leave on most painful area for up to 12 hrs metoprolol succinate 25 mg tablet extended release 24 hr 25 mg PO DAILY fluticasone propionate 50 mcg/actuation spray,suspension 1 spray intranasal DAILY loratadine 10 mg tablet 1 tab PO DAILY calcium carbonate-vitamin D3 [Calcium 500 With D] 500 mg(1,250mg) -400 unit tablet 1 tab PO BID acetaminophen 650 mg tablet extended release 650 mg PO Q8H Qty: 60 0RF cyclobenzaprine 10 mg tablet 10 mg PO TID PRN (Reason: muscle spasm) Qty: 10 0RF diclofenac sodium [Voltaren Arthritis Pain] 1 % gel 4 g topical QID PRN (Reason: pain (scale score 7-10)) Qty: 100 0RF Rx Instructions: apply to shoulders, low back pain meclizine 25 mg tablet 25 mg PO BID PRN (Reason: dizziness) Qty: 30 0RF cholecalciferol (vitamin D3) 25 mcg (1,000 unit) capsule 25 mcg PO DAILY aspirin [Enteric Coated Aspirin] 81 mg tablet,delayed release (DR/EC) 81 mg PO DAILY furosemide [Lasix] 40 mg tablet 40 mg PO BID Qty: 60 2RF atorvastatin 80 mg tablet 80 mg PO QPM Qty: 90 3RF lisinopril 40 mg tablet 40 mg PO DAILY Qty: 90 3RF Referrals: Ramírez Ness MD [Physician] - 2 weeks
[2022-03-29 19:59] VITALS: BP 146/73; PULSE 96; RESP 16; TEMP 36.6; O2SAT 96
[2022-03-29 20:03] VITALS: BP 146/73; BP 152/79; PULSE 112; PULSE 96
[2022-03-29 20:04] VITALS: BP 145/66; PULSE 114
--- NOTE | 2022-03-29 20:05 | ECG_ITS ---
Test Reason : DIZZINESS Blood Pressure : / mmHG Vent. Rate : 089 BPM Atrial Rate : 089 BPM P-R Int : 198 ms QRS Dur : 082 ms QT Int : 398 ms P-R-T Axes : 045 013 029 degrees QTc Int : 484 ms Normal sinus rhythm Possible Left atrial enlargement Septal infarct , age undetermined Abnormal ECG When compared with ECG of 27-AUG-2021 21:22, No significant change was found Referred By: Jazmin Apple Electronically Signed By:TALISHA COOPER
[2022-03-29 21:02] LABS: Alanine Aminotransferase 23 U/L (0-31); Albumin Level 4.2 g/dL (3.5-5.0); Alkaline Phosphatase 66 U/L (39-117); Aspartate Amino Transferase 26 U/L (5-31); Bilirubin Direct 0.3 mg/dL (0.0-0.5); Bilirubin Total 0.5 mg/dL (0.0-1.0); Magnesium 2.1 mg/dL (1.6-2.6); Total Protein 7.3 g/dL (6.5-8.0)
[2022-03-29 21:08] LABS: B Type Natriuretic Peptide 16 pg/mL (<100); Troponin-I High Sensitivity < 3.5 ng/L (<3.5-17.0)
[2022-03-29] MEDS: Furosemide 40 MG/4 ML VIAL IVPUSH (21:35)
[2022-03-29 22:04] VITALS: BP 116/59; PULSE 86; RESP 18; TEMP 36.6; O2SAT 98
== END 2022-03-29 22:21 | disposition home or self-care (01) ==
PROVIDERS: Emergency Provider Emergency Medicine; PCP Nurse Practitioner Acute Care
DX: R42 Dizziness and giddiness (principal); R60.0 Localized edema; I48.0 Paroxysmal atrial fibrillation; I10 Essential (primary) hypertension; G31.84 Mild cognitive impairment of uncertain or unknown etiology; Z86.73 Personal history of transient ischemic attack (TIA), and cerebral infarction without residual deficits; Z79.01 Long term (current) use of anticoagulants; Z79.899 Other long term (current) drug therapy; Z91.14 Patient's other noncompliance with medication regimen
CPT/HCPCS: 36415; 70450; 80048; 80076; 83735; 83880; 84484; 85025; 93005; 96374; 99284; J1940

== ENCOUNTER 2022-04-09 13:30 | Outpatient (REF) | payer OTHER, SELFPAY ==
--- NOTE | ~2022-04-09 | MR_ITS ---
EXAMINATION: MR LUMBAR SPINE WITHOUT CONTRAST CLINICAL INFORMATION: Low back pain radiating to left leg. Suspected L2-L3 or L3-L4. COMPARISON: None TECHNIQUE: MRI of the lumbar spine was obtained using routine sequences without contrast. FINDINGS: The lumbar vertebral bodies maintain normal heights. There is mild anterolisthesis of L4 on L5 and L5 on S1. There is mild levoscoliotic curvature. There is mild disc height loss at L2-L3. Marrow edema/stress response is seen within the left-sided L5 pedicle. The distal spinal cord appears normal. The conus medullaris terminates normally at the L1 level. The extraspinal soft tissues are unremarkable. SPINAL LEVELS: L1-L2: No posterior disc abnormality. No spinal canal or neural foraminal stenosis. L2-L3: Disc bulging with mild facet arthropathy. No spinal canal or neural foraminal stenosis. L3-L4: Disc bulging with ligamentum flavum infolding moderate facet arthropathy. Mild spinal canal stenosis with right subarticular stenosis. Mild to moderate right neural foraminal stenosis with abutment of the exiting right L3 nerve root. L4-L5: Disc bulging with ligamentum flavum infolding and severe facet arthropathy. Moderate spinal canal stenosis with subarticular stenosis. Left foraminal extrusion significantly compresses the exiting left L4 nerve root. Moderate compression of the exiting right L4 nerve root. L5-S1: Disc bulging with severe left more than right facet arthropathy. No spinal canal stenosis. Severe left neural foraminal stenosis with moderate compression of the exiting left L5 nerve root. MR/MR lumbar spine wo con IMPRESSION: At L3-L4 there is mild to moderate right neural foraminal stenosis with abutment of the exiting right L3 nerve root and mild spinal canal stenosis. At L4-L5 there is moderate spinal canal stenosis, subarticular stenosis, and significant compression of the exiting left L4 nerve root related to foraminal extrusion. Moderate compression of the exiting right L4 nerve root. At L5-S1 there is severe left neural foraminal stenosis with moderate compression of the exiting left L5 nerve root.
== END 2022-04-09 13:31 | disposition home or self-care (01) ==
LOC: HO.MRI 13:30
PROVIDERS: Visit Provider Nurse Practitioner Women's Health
DX: M54.50 Low back pain, unspecified (principal)
CPT/HCPCS: 72148

== ENCOUNTER 2022-04-15 12:29 | Outpatient (REF) | payer OTHER, SELFPAY ==
--- NOTE | ~2022-04-15 | US_ITS ---
EXAMINATION: US VENOUS REFLUX/INSUFFICIENCY CLINICAL INFORMATION: This is a 76 year-old woman with lower extremity edema. COMPARISON: None. TECHNIQUE: Bilateral lower extremity and venous insufficiency ultrasound was performed with velocity measurements. Color flow Doppler imaging was performed. FINDINGS: RIGHT SIDE: GREATER SAPHENOUS VEIN: The saphenofemoral junction diameter is 0.2 cm. There is no reflux. The proximal thigh diameter is 0.4 cm. There is no reflux. The mid thigh diameter is 0.4 cm. There is no reflux. The above-knee diameter is 0.5 cm. The reflux time is 2300 ms. The at-knee diameter is 0.4 cm. The reflux time is 2056 ms. The below-knee diameter is 0.3 cm. There is no reflux. The mid calf diameter is 0.3 cm. There is no reflux. The ankle diameter is 0.2 cm. There is no reflux. LESSER SAPHENOUS VEIN: The saphenopopliteal junction diameter is 0.4 cm. There is no reflux. The mid calf diameter is 0.2 cm. There is no reflux. The distal calf diameter is 0.2 cm. There is no reflux. OTHER: There is a mid thigh varicosity with diameter of 0.3 cm and reflux time of 2032 ms. LEFT SIDE: GREATER SAPHENOUS VEIN: The saphenofemoral junction diameter is 0.6 cm. There is no reflux. The proximal thigh diameter is 0.4 cm. There is no reflux. The mid thigh diameter is 0.4 cm. There is no reflux. The above-knee diameter is 0.4 cm. There is no reflux. The at-knee diameter is 0.4 cm. There is no reflux The below-knee diameter is 0.3 cm. There is no reflux The mid calf diameter is 0.2 cm. There is no reflux. The ankle diameter is 0.3 cm. There is no reflux LESSER SAPHENOUS VEIN: The saphenopopliteal junction diameter is 0.1 cm. There is no reflux The mid calf diameter is 0.1 cm. There is no reflux. The distal calf diameter is 0.1 cm. There is no reflux. OTHER: There is a distal calf varicosity with diameter of 0.5 cm. This shows no reflux. Within the mid thigh, there is a 0.2 cm quality improvement coordinator (rn), which shows no reflux. Within the mid calf, there is a 0.4 cm quality improvement coordinator (rn), which shows no reflux. BILATERAL DEEP SYSTEMS: There is no deep insufficiency on the right. There is no deep insufficiency on the left. US/US venous duplex LE BI IMPRESSION: Findings are consistent with hemodynamically significant reflux of the right greater saphenous vein.
== END 2022-04-15 12:30 | disposition home or self-care (01) ==
LOC: HO.US 12:29
PROVIDERS: PCP Internal Medicine; Visit Provider Internal Medicine
DX: R60.0 Localized edema (principal)
CPT/HCPCS: 93970

== ENCOUNTER 2022-04-26 16:08 | Emergency (ER) | payer OTHER, SELFPAY ==
--- NOTE | ~2022-04-26 | CT_ITS ---
EXAMINATION: CT ANGIOGRAM OF THE CHEST WITH AND WITHOUT CONTRAST (CT PULMONARY ANGIOGRAM FOR PE) CLINICAL INFORMATION: Reason for Exam elevateddimer, tachy COMPARISON: None TECHNIQUE: Prior to contrast administration, noncontrast localization images were obtained. Subsequently, multidetector volumetric imaging was performed from the thoracic inlet to below the diaphragms following the administration of 80 mL Omnipaque 350 intravenous contrast. No contrast reaction reported Sagittal, coronal, and MIP oblique sagittal reformatted images were obtained on the CT workstation, uploaded to PACS, and reviewed. This CT examination was performed using dose optimization techniques as appropriate, variously including the following: *Automated exposure control *Adjustment of mA and/or kV according to patient size (this includes techniques or standardized protocols for targeted exams where dose is matched to indication/reason for exam; i.e. extremities or head) *Use of iterative reconstruction technique Total exam dose-length product 310 mGy-cm FINDINGS: QUALITY OF STUDY/CONTRAST BOLUS: Satisfactory. PULMONARY ARTERIES: No central or segmental pulmonary emboli. THORACIC AORTA: No aneurysm or dissection. LUNG: Multiple tiny pulmonary nodules unchanged. No new abnormality. PLEURA: No pleural effusion or pneumothorax. MEDIASTINUM: Normal heart size. No pericardial effusion. No hilar or mediastinal lymphadenopathy. No evidence of septal bowing or right heart strain. CHEST WALL/AXILLA: No axillary or internal mammary lymphadenopathy. OSSEOUS STRUCTURES: No acute or suspicious osseous abnormality. UPPER ABDOMEN: Small cyst within the dome the liver again noted. No reflux of contrast into the hepatic veins to suggest elevated right heart pressures. Small axial type hiatus hernia. CT/CT angio chest PE protocol IMPRESSION: No evidence for acute or chronic pulmonary embolism. Stable pulmonary nodules favoring benign disease. VTE: negative
--- NOTE | ~2022-04-26 | XR_ITS ---
EXAMINATION: XR CHEST CLINICAL INFORMATION: Cough COMPARISON: 08/12/2021 TECHNIQUE: 2 views of the chest were obtained. FINDINGS: No significant abnormality is noted involving the heart, lungs, mediastinum, bony thorax or soft tissues. XR/XR chest 2V IMPRESSION: Unremarkable examination.
--- NOTE | 2022-04-26 16:15 | ED_ITS ---
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 Patient states that she had a very brief episode of palpitations earlier today and it resolved. Megan ent denies any dizziness, lightheadedness, abdominal pain, nausea, vomiting, fever, chills, blurry vision, double vision, loss of vision, chest pain, difficulty breathing, shortness of breath, back pain, night sweats, pain with urination, increased urinary frequency, increased urinary urgency, blood in her urine or stool, syncope or a near syncopal episode, recent trauma or falls, bowel incontinence, bladder incontinence, bowel retention, bladder retention, or any other complaints at this time. Pain Consistency: now resolved Relieving factors: none Exacerbating factors: none Associated symptoms: denies other symptoms Treatments prior to arrival: none Related Data Home Medications Medication Instructions Recorded Confirmed aspirin 81 mg tablet,delayed 81 mg PO DAILY 12/05/20 04/10/22 release (Enteric Coated Aspirin) cholecalciferol (vitamin D3) 25 25 mcg PO DAILY 12/05/20 04/10/22 mcg (1,000 unit) capsule apixaban 5 mg tablet (Eliquis) 5 mg PO BID 01/30/21 04/10/22 calcium carbonate 500 mg-vitamin 1 tab PO BID 08/13/21 04/10/22 D3 10 mcg (400 unit) tablet (Calcium 500 With D) fluticasone propionate 50 1 spray intranasal DAILY 08/13/21 04/10/22 mcg/actuation nasal spray,suspension loratadine 10 mg tablet 1 tab PO DAILY 08/13/21 04/10/22 metoprolol succinate 25 mg 25 mg PO DAILY 08/13/21 04/10/22 tablet,extended release 24 hr Previous Rx's Medication Instructions Recorded ipratropium 0.5 mg-albuterol 3 mg 3 ml inhalation Q4-6H PRN 09/10/21 (2.5 mg base)/3 mL nebulization Shortness Of Breath #180 mL soln acetaminophen 650 mg 650 mg PO Q8H pain #60 tabs 09/24/21 tablet,extended release diclofenac sodium 1 % topical gel 4 g topical QID PRN pain (scale 10/13/21 (Voltaren Arthritis Pain) score 7-10) #100 grams lidocaine 5 % topical patch 1 patch topical DAILY #15 ea 11/30/21 cyclobenzaprine 10 mg tablet 10 mg PO TID PRN muscle spasm #10 12/08/21 tabs atorvastatin 80 mg tablet 80 mg PO QPM #90 tabs 12/18/21 lisinopril 40 mg tablet 40 mg PO DAILY #90 tabs 02/10/22 furosemide 40 mg tablet (Lasix) 40 mg PO BID #60 tabs 02/19/22 compress.stocking,knee,reg,med #2 ea 02/26/22 fluticasone furoate 200 1 ea PO DAILY #60 ea 03/03/22 mcg-vilanterol 25 mcg/dose inhalation powder (Breo Ellipta) meclizine 25 mg tablet 25 mg PO BID PRN dizziness #30 tabs 04/10/22 Allergies Allergy/AdvReac Type Severity Reaction Status Date / Time oxycodone [From Percocet] Allergy Intermediate Agitated Verified 04/10/22 11:15 Review of Systems Constitutional: Constitutional: Reports no additional constitutional complaints, Denies chills, Denies fever(s) and Denies night sweats Eyes: Eyes: Reports no additional eye complaints, Denies blurry vision, Denies change in vision, Denies diplopia, Denies eye discharge, Denies loss of vision and Denies eye pain ENT: Denies dizziness Cardiovascular: Cardiovascular: Reports no additional cardiovascular complaints, Denies chest pain, Denies lightheadedness, Denies Loss of Co nsciousness and Denies dyspnea Respiratory: Respiratory: Reports no additional respiratory complaints and Denies dyspnea Gastrointestinal: Gastrointestinal: Reports no additional gastrointestinal complaints, Denies abdominal pain, Denies melena, Denies hematochezia, Denies change in bowel habits and Denies change in stool character Genitourinary: Genitourinary: Denies hematuria, Denies urinary frequency, Denies dysuria, Denies urinary incontinence, Denies urinary hesitancy and Denies urinary urgency Musculoskeletal: Musculoskeletal: Reports no additional musculoskeletal complaints, Denies numbness and Denies tingling Neurologic: Denies dizziness, Denies loss of vision, Denies numbness and Denies tingling Psychiatric: Psychiatric: Reports no additional psychiatric complaints Endocrine: Endocrine: Reports no additional endocrine complaints Hematologic/Lymphatic: Hematologic/Lymphatic: Reports no additional hematologic/lymphatic complaints Allergic/Immunologic: Allergic/Immunologic: Reports no additional allergic/immunologic complaints [facility] Past Medical History Attestation statement: The following information was validated with the patient. Source: old records reviewed Medical History Abdominal hyperesthesia Acute CVA (cerebrovascular accident) Afib Dyspepsia GERD (gastroesophageal reflux disease) History of CVA (cerebrovascular accident) HTN (hypertension) IBS (irritable bowel syndrome) Osteoarthritis of lumbar spine Scoliosis Surgical History H/O bilateral breast reduction surgery H/O section H/O oophorectomy Hx of hysterectomy Family History Family History Son HTN (hypertension) Social History Social History Household Members: None Housing: Apartment Are you a primary patient care representative to a significant other at home: No Do you presently have visiting nurse or other home services: Yes (physician/allergy/immunology) Alcohol intake: never Patient Tobacco Use Status: Never used Tobacco e-Cigarette/Vaping Use: Never Used Advance Directives: Yes Advance Directives on File: Yes Advance Directives Date on File: 08/13/21 service: No Current occupational status: disabled Cognitive needs: No Hearing needs: No Vision needs: Yes (Glasses) Physical Exam ED Vital Signs: Vital Signs - 24 hr 04/26/22 17:49 04/26/22 18:03 Temperature 98.3 F 98.4 F Pulse Rate 86 80 Respiratory Rate 19 16 Blood Pressure 106/51 L 138/72 Pulse Oximetry 97 98 Oxygen Delivery Method Room Air Room Air BMI result Body Mass Index 28.9 Const General: cooperative, no acute distress, alert and awake Nutritional Appearance: well nourished Orientation/consciousness: patient oriented x3 Limitations: no limitations HENMT Head: Yes normal to inspection and Yes atraumatic Ears: hearing grossly normal bilaterally and external ears normal General nose exam: Normal external nose present, no nasal discharge noted and no epistaxis Face and sinus: Yes normal facial exam, No abrasion and No laceration Mouth: Normal oral and palatal mucosa present, no drooling and no muffled voice Eyes General: appearance normal, both eyes and all related structures Periorbital: periorbital findings normal Eyelids: Yes eyelids normal Conjunctivae: conjunctivae normal Pupils: Equal, round and reactive pupils present EOM: EOMs intact bilaterally Neck Neck: Yes normal visual inspection, Yes full ROM and Yes no lymphadenopathy Chest Chest palpation & inspection: normal inspection of the chest Resp Effort & Inspection: normal respiratory effort and able to speak in complete sentences Auscultation: clear to auscultation bilaterally Cardio Rate: regular rate Rhythm: regular rhythm GI Inspection: Yes normal to inspection Neuro General: patient oriented x3 and moves all extremities Cranial nerves: Yes Equal, round and reactive pupils present Cognition (Neuro): normal cognition Motor exam (neuro): 5/5 motor strength present throughout Sensory Exam: Normal double simultaneous stimulation for sensation Coordination: [id number] test normal Extrem General: Yes normal to inspection, Yes full ROM and Yes capillary refill normal Psych Appearance: grossly normal Mental Status: mental status grossly normal Affect: normal affect Attitude: cooperative Thought process: Normal thought process present Thought content: Normal thought content present Insight: Good insight present (Psych) Medical Decision Making MDM Narrative Medical decision making narrative: Patient is a 76 year old female presenting to the emergency department today after a resolved episode of palpitations. Patient's physical exam was unremarkable. Patient's blood work showed a very slightly elevated d dimer but was otherwise unremarkable. Patient's EKG was unremarkable. Patient's chest x- ray and chest CTA showed no acute process. I explained my physical exam findings as well as all test results to the patient. I answered all questions asked by the patient. I stressed the importance of the patient taking her medication as prescribed. I stressed the importance of the patient following up with her primary care provider. I stressed the importance of the patient returning to the emergency department immediately if her symptoms were to worsen or if she were to develop any dizziness, shortness of breath, difficulty breathing, chest pain, blurry vision, loss of vision, nausea, vomiting, abdomina l pain, fever, chills, back pain, or any other complaints. Patient verbalized agreement and understanding with this treatment plan and discharge. Differential Diagnosis Differential Diagnosis: palpitations Medical Records Medical records reviewed: Yes I reviewed the patient's medical records. Lab Data Lab results reviewed: Yes I reviewed the patient's lab results. Result diagrams: 04/26/22 17:07 04/26/22 17:07 Labs: Lab Results 04/26/22 04/26/22 04/26/22 Range/Units 17:07 17:07 17:07 WBC 4.3 L (4.8-10.8) X10*3/uL RBC 4.17 L (4.20-5.50) X10*6/uL Hgb 12.0 (12.0-16.0) g/dl Hct 37.6 (37.0-47.0) % MCV 90.2 (80.0-98.0) fL MCH 28.8 (27.0-33.0) pg MCHC 31.9 (31.0-35.0) g/dl RDW 12.5 (11.0-16.0) % Plt Count 187 (160-400) X10*3/uL MPV 11.6 (9.4-12.3) fL Immature Gran % (Auto) 0.0 (0.0-0.4) % Neut % (Auto) 51.5 (45-73) % Lymph % (Auto) 28.6 (20-40) % Cooper % (Auto) 13.6 H (2-11) % Eos % (Auto) 5.8 H (0-4) % Baso % (Auto) 0.5 (0-2) % Lymph # (Auto) 1.2 (1.2-4.9) X10*3/uL Cooper # (Auto) 0.6 (0.1-1.2) X10*3/uL Eos # (Auto) 0.3 (0.0-0.4) X10*3/uL Baso # (Auto) 0.0 (0.0-0.2) X10*3/uL Abs Immat Gran (auto) 0.00 (0.00-0.03) X10*3/uL Absolute Neuts (auto) 2.2 (2.0-8.3) x10*3/uL Absolute Nucleated RBC 0.000 (0.0-0.012) X10*3/uL Nucleated RBC % (auto) 0.0 (0.0-0.2) /100WBC D-Dimer High Sensitivty 249 NG/ML Sodium 138 (135-145) mmol/L Potassium 3.8 (3.3-5.1) mmol/L Chloride 105 (96-108) mmol/L Carbon Dioxide 25 (22-29) mmol/L Anion Gap 12 (12-20) BUN 19 H (9-16) mg/dL Creatinine 0.91 (0.5-1.4) mg/dL Estim Creat Clear Calc TNP Estimated GFR > 60 Random Glucose 91 (60-115) mg/dL Calcium 9.2 (8.4-10.2) mg/dL Magnesium 2.0 (1.6-2.6) mg/dL Total Bilirubin 0.6 (0.0-1.0) mg/dL AST 35 H (5-31) U/L ALT 28 (0-31) U/L Alkaline Phosphatase 71 (39-117) U/L Troponin I High Sens (<3.5-17.0) ng/L B-Natriuretic Peptide (<100) pg/mL Total Protein 7.2 (6.5-8.0) g/dL Albumin 4.1 (3.5-5.0) g/dL Urine Color Urine Appearance Urine pH (5.0-8.0) Ur Specific [place] (1.005-1.025) Urine Protein (NEG-TRACE) MG/DL Urine Glucose (UA) (NEG) MG/DL Urine Ketones (NEG) MG/DL Urine Blood (NEG) Urine Nitrite (NEG) Ur Leukocyte Esterase (NEG) COVID-19 (TARAN) (Negative) COVID-19 Clin Com 04/26/22 04/26/22 04/26/22 Range/Units 17:07 18:00 18:00 WBC (4.8-10.8) X10*3/uL RBC (4.20-5.50) X10*6/uL Hgb (12.0-16.0) g/dl Hct (37.0-47.0) % MCV (80.0-98.0) fL MCH (27.0-33.0) pg MCHC (31.0-35.0) g/dl RDW (11.0-16.0) % Plt Count (160-400) X10*3/uL MPV (9.4-12.3) fL Immature Gran % (Auto) (0.0-0.4) % Neut % (Auto) (45-73) % Lymph % (Auto) (20-40) % Cooper % (Auto) (2-11) % Eos % (Auto) (0-4) % Baso % (Auto) (0-2) % Lymph # (Auto) (1.2-4.9) X10*3/uL Cooper # (Auto) (0.1-1.2) X10*3/uL Eos # (Auto) (0.0-0.4) X10*3/uL Baso # (Auto) (0.0-0.2) X10*3/uL Abs Immat Gran (auto) (0.00-0.03) X10*3/uL Absolute Neuts (auto) (2.0-8.3) x10*3/uL Absolute Nucleated RBC (0.0-0.012) X10*3/uL Nucleated RBC % (auto) (0.0-0.2) /100WBC D-Dimer High Sensitivty NG/ML Sodium (135-145) mmol/L Potassium (3.3-5.1) mmol/L Chloride (96-108) mmol/L Carbon Dioxide (22-29) mmol/L Anion Gap (12-20) BUN (9-16) mg/dL Creatinine (0.5-1.4) mg/dL Estim Creat Clear Calc Estimated GFR Random Glucose (60-115) mg/dL Calcium (8.4-10.2) mg/dL Magnesium (1.6-2.6) mg/dL Total Bilirubin (0.0-1.0) mg/dL AST (5-31) U/L ALT (0-31) U/L Alkaline Phosphatase (39-117) U/L Troponin I High Sens < 3.5 (<3.5-17.0) ng/L B-Natriuretic Peptide 35 (<100) pg/mL Total Protein (6.5-8.0) g/dL Albumin (3.5-5.0) g/dL Urine Color STRAW Urine Appearance CLEAR Urine pH 6.5 (5.0-8.0) Ur Specific [place] <= 1.005 (1.005-1.025) Urine Protein NEG (NEG-TRACE) MG/DL Urine Glucose (UA) NEG (NEG) MG/DL Urine Ketones NEG (NEG) MG/DL Urine Blood NEG (NEG) Urine Nitrite NEG (NEG) Ur Leukocyte Esterase NEG (NEG) COVID-19 (TARAN) Negative (Negative) COVID-19 Clin Com See Note Imaging Data Chest x-ray: Attestation: I personally reviewed and interpreted this imaging study as follows: My impression: No acute process. Radiologist's impression: EXAMINATION: XR CHEST CLINICAL INFORMATION: Cough COMPARISON: 08/12/2021 TECHNIQUE: 2 views of the chest were obtained. FINDINGS: No significant abnormality is noted involving the heart, lungs, mediastinum, bony thorax or soft tissues. XR/XR chest 2V IMPRESSION: Unremarkable examination. Dictated By: Brian Bob MD Signed By: Electronically signed by Brian Bob MD 04/26/22 [id number] CTA Chest: Attestation: I personally reviewed and interpreted this imaging study as follows: My impression: No acute process. Radiologist's impression: EXAMINATION: CT ANGIOGRAM OF THE CHEST WITH AND WITHOUT CONTRAST (CT PULMONARY ANGIOGRAM FOR PE) CLINICAL INFORMATION: Reason for Exam elevateddimer, tachy COMPARISON: None? TECHNIQUE: Prior to contrast administration, noncontrast localization images were obtained. ? Subsequently, multidetector volumetric imaging was performed from the thoracic inlet to below the diaphragms following the administration of 80 mL Omnipaque 350 intravenous contrast. No contrast reaction reported Sagittal, coronal, and MIP oblique sagittal reformatted images were obtained on the CT workstation, uploaded to PACS, and reviewed. This CT examination was performed using dose optimization techniques as appropriate, variously including the following: *Automated exposure control *Adjustment of mA and/or kV according to patient size (this includes techniques or standardized protocols for targeted exams where dose is matched to indication/reason for exam; i.e. extremities or head) *Use of iterative reconstruction technique Total exam dose-length product 310 mGy-cm FINDINGS: QUALITY OF STUDY/CONTRAST BOLUS: Satisfactory. PULMONARY ARTERIES: No central or segmental pulmonary emboli.? THORACIC AORTA: No aneurysm or dissection. LUNG: Multiple tiny pulmonary nodules unchanged. No new abnormality. PLEURA: No pleural effusion or pneumothorax. MEDIASTINUM: Normal heart size.? No pericardial effusion.? No hilar or mediastinal lymphadenopathy.? No evidence of septal bowing or right heart strain. CHEST WALL/AXILLA: No axillary or internal mammary lymphadenopathy. OSSEOUS STRUCTURES: No acute or suspicious osseous abnormality.? UPPER ABDOMEN: Small cyst within the dome the liver again noted.? No reflux of contrast into the hepatic veins to suggest elevated right heart pressures. Small axial type hiatus hernia. CT/CT angio chest PE protocol IMPRESSION: No evidence for acute or chronic pulmonary embolism. Stable pulmonary nodules favoring benign disease. ? VTE: negative Dictated By: Nish Sawyer MD Signed By: Electronically signed by Nish Sawyer MD 04/26/221920 ECG Data Attestation: I personally reviewed and interpreted this ECG as follows: Prior ECG tracings: available for review Interpretation: Vent. Rate: 076 BPM ? ? Atrial Rate: 076 BPM P-R Int: 192 ms? QRS Dur: 078 ms QT Int: 436 ms ? ? ? P-R-T Axes: 070 030 060 degrees QTc Int: 490 ms ? Normal sinus rhythm Low voltage QRS Septal infarct , age undetermined Abnormal ECG When compared with ECG of 29-MAR-2022 20:21, No significant change was found 04/26/221934 Discharge Plan Discharge Clinical Impression: Heart palpitations Patient Disposition: Home, Self-Care Instructions: Heart Palpitations (DC) Additional Instructions: Follow up with your primary care provider. Return to the emergency department immediately if your symptoms worsen or if you develop any dizziness, shortness of breath, difficulty breathing, chest pain, blurry vision, loss of vision, nausea, vomiting, abdominal pain, fever, chills, back pain, or any other complaints. Prescriptions: No Action ipratropium-albuterol 0.5 mg-3 mg(2.5 mg base)/3 mL solution for nebulization 3 ml inhalation Q4-6H PRN (Reason: Shortness Of Breath) Qty: 180 0RF (DME) compress.stocking,knee,reg,med Misc See Rx Instructions .Route Qty: 2 0RF Rx Instructions: As directed Breo Ellipta 200-25 mcg/dose blister with device 1 ea PO DAILY Qty: 60 6RF Eliquis 5 mg Tablet 5 mg PO BID lidocaine 5 % adhesive patch,medicated 1 patch topical DAILY Qty: 15 0RF Rx Instructions: leave on most painful area for up to 12 hrs metoprolol succinate 25 mg tablet extended release 24 hr 25 mg PO DAILY fluticasone propionate 50 mcg/actuation spray,suspension 1 spray intranasal DAILY loratadine 10 mg tablet 1 tab PO DAILY calcium carbonate-vitamin D3 [Calcium 500 With D] 500 mg(1,250mg) -400 unit tablet 1 tab PO BID acetaminophen 650 mg tablet extended release 650 mg PO Q8H Qty: 60 0RF cyclobenzaprine 10 mg tablet 10 mg PO TID PRN (Reason: muscle spasm) Qty: 10 0RF diclofenac sodium [Voltaren Arthritis Pain] 1 % gel 4 g topical QID PRN (Reason: pain (scale score 7-10)) Qty: 100 0RF Rx Instructions: apply to shoulders, low back pain meclizine 25 mg tablet 25 mg PO BID PRN (Reason: dizziness) Qty: 30 0RF cholecalciferol (vitamin D3) 25 mcg (1,000 unit) capsule 25 mcg PO DAILY aspirin [Enteric Coated Aspirin] 81 mg tablet,delayed release (DR/EC) 81 mg PO DAILY furosemide [Lasix] 40 mg tablet 40 mg PO BID Qty: 60 2RF atorvastatin 80 mg tablet 80 mg PO QPM Qty: 90 3RF lisinopril 40 mg tablet 40 mg PO DAILY Qty: 90 3RF Referrals: Millicent Patricia, MICHELLE [Primary Care Provider] - Interventions: ED Discharge Assessment Last Done: 04/26/22 20:21 Discharge Date/Time: 04/26/22 20:24 Print Language: Czech
[2022-04-26 17:13] LABS: MANUAL DIFF FLAG NO
[2022-04-26 17:16] LABS: Basophils Percent Auto 0.5 % (0-2); Eosinophils Absolute Auto 0.3 X10*3/uL (0.0-0.4); Eosinophils Percent Auto 5.8 % (0-4); Hematocrit 37.6 % (37.0-47.0); Lymphocytes Absolute Auto 1.2 X10*3/uL (1.2-4.9); Lymphocytes Percent Auto 28.6 % (20-40); Mean Corpuscular HGB Conc 31.9 g/dl (31.0-35.0); Mean Corpuscular Hemoglobin 28.8 pg (27.0-33.0); Mean Corpuscular Volume 90.2 fL (80.0-98.0); Mean Platelet Volume 11.6 fL (9.4-12.3); Monocytes Absolute Auto 0.6 X10*3/uL (0.1-1.2); Monocytes Percent Auto 13.6 % (2-11); Neutrophils Absolute Auto 2.2 x10*3/uL (2.0-8.3); Neutrophils Percent Auto 51.5 % (45-73); Platelet Count 187 X10*3/uL (160-400); Red Blood Count 4.17 X10*6/uL (4.20-5.50); Red Cell Distribution Width 12.5 % (11.0-16.0); White Blood Count 4.3 X10*3/uL (4.8-10.8)
[2022-04-26 17:31] LABS: D Dimer High Sensitivity 249 NG/ML
[2022-04-26 17:42] LABS: Alanine Aminotransferase 28 U/L (0-31); Albumin Level 4.1 g/dL (3.5-5.0); Alkaline Phosphatase 71 U/L (39-117); Anion Gap 12 (12-20); Aspartate Amino Transferase 35 U/L (5-31); Bilirubin Total 0.6 mg/dL (0.0-1.0); Blood Urea Nitrogen 19 mg/dL (9-16); Calcium 9.2 mg/dL (8.4-10.2); Carbon Dioxide 25 mmol/L (22-29); Chloride 105 mmol/L (96-108); Estimated Glomerular Filt Rate > 60; Glucose Random 91 mg/dL (60-115); Potassium 3.8 mmol/L (3.3-5.1); Sodium 138 mmol/L (135-145); Total Protein 7.2 g/dL (6.5-8.0)
[2022-04-26 17:47] LABS: B Type Natriuretic Peptide 35 pg/mL (<100); Troponin-I High Sensitivity < 3.5 ng/L (<3.5-17.0)
[2022-04-26 17:49] VITALS: BP 106/51; BP 112/78; PULSE 100; PULSE 86; RESP 19; TEMP 36.8; O2SAT 97; O2SAT 98; BMI 28.9
[2022-04-26 18:03] VITALS: BP 138/72; PULSE 80; RESP 16; TEMP 36.9; O2SAT 98
[2022-04-26 18:19] LABS: Appearance Urine CLEAR; Color Urine STRAW; Glucose Urine UA NEG (NEG); Leukocyte Esterase Urine NEG (NEG); Nitrite Urine NEG (NEG); PH 6.5 (5.0-8.0); Specific Gravity - Urine <= 1.005 (1.005-1.025); Urine Blood NEG (NEG); Urine Ketones NEG (NEG); Urine Protein NEG (NEG-TRACE)
[2022-04-26 18:34] LABS: COVID-19 Test Negative (Negative); IDNOW Serial# 16C4AD1C
[2022-04-26] MEDS: iohexoL 350 MG/ML 100 ML INFUS..BTL IV (18:44)
== END 2022-04-26 20:24 | disposition home or self-care (01) ==
PROVIDERS: Physician Assistant Medical; Emergency Provider Emergency Medicine; PCP Nurse Practitioner Acute Care
DX: R00.2 Palpitations (principal); R00.0 Tachycardia, unspecified; R06.02 Shortness of breath; Z20.822 Contact with and (suspected) exposure to COVID-19; Z79.899 Other long term (current) drug therapy
CPT/HCPCS: 71046; 71275; 80053; 81003; 83735; 83880; 84484; 85025; 85379; 87635; 96365; 99284; Q9967

== ENCOUNTER → 2022-05-05 15:43 | Outpatient (BNVA) | payer OTHER, SELFPAY | PROVIDERS: PCP Internal Medicine; Visit Provider Surgery Vascular Surgery | DX: I83.11 Varicose veins of right lower extremity with inflammation (principal) | CPT/HCPCS: 99202 ==

== ENCOUNTER 2022-05-13 14:05 | Outpatient (RCR) | payer OTHER, SELFPAY ==
[2022-05-13 14:33] VITALS: BP 137/63; PULSE 70
--- NOTE | 2022-05-13 15:42 | MHC.PT.EP ---
[facility] [place] Office [place] Office [place] Office [address] Vicki Godinez [address] [phone] F: [phone] F: [phone] F: [phone] F: [phone] Physical Therapy Plan of Care Date of Evaluation: Date of Surgery: Diagnosis: dizziness and giddiness Assessment: 76 y/o female referred to PT with dizziness and giddiness. 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 The dizziness occurs with all positions and she has difficulty describing dizziness (reports fatigue, lightheadedness, and unsteadiness.) Her fiancee and BRIM POUNCER MACHINE OPERATOR assisted with interpreting and history as pt is vague at times. Examination shows (-) modified VBI test, normal cervical AROM, saccadic movements during smooth pursuit testing, grossly normal static balance for 30seconds, and (-) for BPPV in Dix_hallpike/Roll Test. At this time, PT is not indicated and recommend pt f/u with neurologist re continued dizziness (she has an appointment in 2 weeks). She is also currently attending outpatient PT for LBP and will be having balance training. Frequency and Duration: The patient will be seen Short Term Goals: PT not indicated Metal Cnc Operator Goals: PT not indicated Treatment Plan: Modalities to reduce pain, spasms and effusion. Manual therapy to restore motion and function. Therapeutic exercise to improve strength and flexibility. Neuromuscular re-education for posture and balance. Therapeutic activities to return to functional activities of daily living. Electronically signed by: Tari Balderrama PT Please sign and return to therapist. Thank you for your referral.
--- NOTE | 2022-05-13 15:44 | MHC.PT.DC ---
[facility] [place] Office [place] Office [place] Office [address] Vicki Godinez [address] [phone] F: [phone] F: [phone] F: [phone] F: [phone] Physical Therapy Discharge Report Diagnosis: dizziness and giddiness Date of Surgery: Date of Evaluation: 05/13/22 Date of Discharge: 05/13/22 Treatments to Date: 1 Cancellations to Date: 0 No Shows to Date: 0 Discharge Status: Recommend MD Follow-up Discharge Summary: 76 y/o female referred to PT with dizziness and giddiness. 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 The dizziness occurs with all positions and she has difficulty describing dizziness (reports fatigue, lightheadedness, and unsteadiness.) Her fiancee and [employer] assisted with interpreting and history as pt is vague at times. Examination shows (-) modified VBI test, normal cervical AROM, saccadic movements during smooth pursuit testing, grossly normal static balance for 30seconds, and (-) for BPPV in Nadja-hallpike/Roll Test. At this time, PT is not indicated and recommend pt f/u with neurologist re continued dizziness (she has an appointment in 2 weeks). Pt educated in causes of dizziness and to f/u with her neurologist re: (-) for BPPV to identify other causes. She is also currently attending outpatient PT for LBP and will be having balance training. Electronically signed by: Tari Balderrama PT Please sign and return to therapist. Thank you for your referral.
== END 2022-05-13 15:44 | disposition home or self-care (01) ==
LOC: HO.PT 14:05
PROVIDERS: PCP Internal Medicine; Visit Provider Nurse Practitioner Family
DX: R42 Dizziness and giddiness (principal)
CPT/HCPCS: 97162

== ENCOUNTER 2022-05-29 10:00 | Outpatient (RCR) | payer OTHER, SELFPAY ==
--- NOTE | 2022-05-01 13:11 | MHC.PT.EP ---
[facility] [place] Office [place] Office [place] Office [address] [place] [address] [address] [phone] F: [phone] F: [phone] F: [phone] F: [phone] Physical Therapy Plan of Care Date of Evaluation: Date of Surgery: NA Diagnosis: LOW BACK PAIN WITH SCIATICA Assessment: Pt IS 76 YO F REFERRED TO PT FROM [facility] ([facility]) WITH LBP WITH SCIATICA. PRESENTS WITH LIMITED TRUNK FLEXIBILITY AND DECREASED CORE STRENGTH. Pt IS BEING FOLLOWEDFOR VASCULAR ISSUES (HAS APPT May) BECAUSE OF LE SWELLING, REDNESS/PAIN. Pt WITH SIGNIF FINDINGS ON MRI (SEE CHART). SHOULD BENEFIT FROM PT FOR STABILIZATION EXS, STRETCHES JOANNE AND ST WORK/MODALITIES TO HELP WITH PAIN Frequency and Duration: The patient will be seen 2X/WK X 6 WKS Short Term Goals: 1. INCREASED AWARENESS BACK CARE 2. Pt TO PERF 2-3 TASKS WITH PROPER BODY MECH Itinerant Teacher Assistant Goals: 1. I HEP WITH DC EX PLAN 2. DECREASED BACK PAIN AT LEAST 50% WITH ADLS Treatment Plan: Modalities to reduce pain, spasms and effusion. Manual therapy to restore motion and function. Therapeutic exercise to improve strength and flexibility. Neuromuscular re-education for posture and balance. Therapeutic activities to return to functional activities of daily living. Electronically signed by: CHRISTINA ALMANZA PT Please sign and return to therapist. Thank you for your referral.
== END 2022-06-05 09:11 | disposition home or self-care (01) ==
LOC: HO.PT 10:00
PROVIDERS: PCP Internal Medicine; Visit Provider Nurse Practitioner Women's Health
DX: M54.50 Low back pain, unspecified (principal); M54.16 Radiculopathy, lumbar region
CPT/HCPCS: 97110; 97140; 97161

== ENCOUNTER → 2022-06-12 09:48 | Outpatient (BNVA) | payer OTHER, SELFPAY | PROVIDERS: PCP Internal Medicine; Visit Provider Surgery Vascular Surgery | DX: I83.11 Varicose veins of right lower extremity with inflammation (principal) | CPT/HCPCS: 36482 ==

== ENCOUNTER 2022-06-15 13:36 | Outpatient (REF) | payer OTHER, SELFPAY ==
--- NOTE | ~2022-06-15 | US_ITS ---
EXAMINATION: US VENOUS ULTRASOUND WITH DOPPLER LOWER EXTREMITY, RIGHT CLINICAL INFORMATION: Pain right leg COMPARISON: None TECHNIQUE: Ultrasound of the deep veins is performed from the hip to the calf with compression sonography and color and pulse Doppler assessment. Spectral analysis with color-flow imaging is performed. FINDINGS: There is a thrombus visualized in the greater saphenous vein status post ablation approximately 2.9 cm from the confluence. There is normal venous compression and respiratory variation and augmented flow in common femoral vein, superficial femoral vein, profunda femoral vein, popliteal vein, and the trifurcation region shows no evidence of deep venous thrombosis. There is no significant popliteal fossa cyst. There is a small benign lymph node in the right groin measuring 1.12 cm and length. US/US venous duplex LE RT IMPRESSION: Post venous ablation there is thrombus visualized in the greater saphenous vein approximately 2.9 cm from the confluence. There is no DVT seen.
== END 2022-06-15 13:37 | disposition home or self-care (01) ==
LOC: HO.US 13:36
PROVIDERS: Visit Provider Surgery Vascular Surgery
DX: M79.604 Pain in right leg (principal)
CPT/HCPCS: 93971

== ENCOUNTER → 2022-06-25 10:51 | Outpatient (BNVA) | payer OTHER, MEDICAID, SELFPAY | PROVIDERS: PCP Internal Medicine; Visit Provider Surgery Vascular Surgery | DX: I83.11 Varicose veins of right lower extremity with inflammation (principal) | CPT/HCPCS: 99212 ==

== ENCOUNTER → 2022-06-29 10:38 | Outpatient (BNVA) | payer OTHER, MEDICAID, SELFPAY | PROVIDERS: PCP Internal Medicine; Referring Provider Internal Medicine; Visit Provider Internal Medicine | DX: I48.0 Paroxysmal atrial fibrillation (principal); I63.9 Cerebral infarction, unspecified; I25.10 Atherosclerotic heart disease of native coronary artery without angina pectoris; I10 Essential (primary) hypertension | CPT/HCPCS: 99212 ==

== ENCOUNTER 2022-07-10 14:59 | Outpatient (REF) | payer OTHER, MEDICAID, SELFPAY ==
--- NOTE | ~2022-07-10 | US_ITS ---
EXAMINATION: US VENOUS ULTRASOUND WITH DOPPLER LOWER EXTREMITY, RIGHT CLINICAL INFORMATION: Post vena seal number 06/23/2022 COMPARISON: Previous exam most recent June 2022 TECHNIQUE: Ultrasound of the deep veins is performed from the hip to the calf with compression sonography and color and pulse Doppler assessment. Spectral analysis with color-flow imaging is performed. FINDINGS: There is normal venous compression and respiratory variation and augmented flow. The visualized common femoral vein, superficial femoral vein, profunda femoral vein, popliteal vein, and the trifurcation region shows no evidence of deep venous thrombosis. There is echogenic material in the right greater saphenous vein post vena seal procedure. This is 4.3 cm from the saphenofemoral junction. US/US venous duplex LE RT IMPRESSION: No DVT demonstrated in the right lower extremity.
== END 2022-07-10 15:00 | disposition home or self-care (01) ==
LOC: HO.US 14:59
PROVIDERS: Visit Provider Surgery Vascular Surgery
DX: M79.604 Pain in right leg (principal)
CPT/HCPCS: 93971

== ENCOUNTER → 2022-08-04 14:34 | Outpatient (BNVA) | payer OTHER, MEDICAID, SELFPAY | PROVIDERS: PCP Internal Medicine; Visit Provider Surgery Vascular Surgery | DX: I83.11 Varicose veins of right lower extremity with inflammation (principal); I89.0 Lymphedema, not elsewhere classified | CPT/HCPCS: 99212 ==

== ENCOUNTER 2022-11-05 10:10 | Outpatient (REF) | payer OTHER, MEDICAID, SELFPAY ==
[2022-11-05 11:29] LABS: Alanine Aminotransferase 19 U/L (0-31); Albumin Level 4.1 g/dL (3.5-5.0); Alkaline Phosphatase 70 U/L (39-117); Anion Gap 12 (12-20); Aspartate Amino Transferase 25 U/L (5-31); Bilirubin Total 0.7 mg/dL (0.0-1.0); Blood Urea Nitrogen 22 mg/dL (9-16); Calcium 9.5 mg/dL (8.4-10.2); Carbon Dioxide 30 mmol/L (22-29); Chloride 104 mmol/L (96-108); Cholesterol 171 mg/dL; Estimated Glomerular Filt Rate 48; Glucose Fasting 91 mg/dL (60-99); HDL Cholesterol 53 mg/dL; LDL Cholesterol Calculated 112 mg/dl; Potassium 4.3 mmol/L (3.3-5.1); Sodium 142 mmol/L (135-145); Total Protein 7.3 g/dL (6.5-8.0); Triglycerides 31 mg/dL
[2022-11-05 11:46] LABS: Vitamin D 25-OH Total 35.4 ng/mL (>30)
== END 2022-11-05 10:11 | disposition home or self-care (01) ==
LOC: HO.LAB 10:10
PROVIDERS: PCP Internal Medicine; Visit Provider Internal Medicine
DX: I10 Essential (primary) hypertension (principal); E78.5 Hyperlipidemia, unspecified; E55.9 Vitamin D deficiency, unspecified
CPT/HCPCS: 36415; 80053; 80061; 82306

== ENCOUNTER 2022-11-18 13:20 | Outpatient (REF) | payer OTHER, MEDICAID, SELFPAY ==
--- NOTE | ~2022-11-18 | MR_ITS ---
EXAMINATION: MRI OF THE BRAIN WITHOUT CONTRAST CLINICAL INFORMATION: New daily persistent headache. COMPARISON: CT scan of the head 03/29/2022. CTA of the head 01/27/2022. TECHNIQUE: MRI of the brain was obtained using routine sequences without contrast. FINDINGS: No diffusion abnormalities are identified to suggest an acute or subacute infarct. No mass effect or midline shift is seen. The ventricles and sulci commensurately prominent consistent with diffuse volume loss. There are extensive areas of hyperintense T2 and FLAIR signal in the periventricular and subcortical white matter, consistent with chronic microvascular ischemic disease. There are chronic infarcts in the right jose j and right cerebellar hemisphere. No extra-axial fluid collections are seen. No pathologic magnetic susceptibility artifact is identified on the gradient refocused acquisition. The craniovertebral junction, marrow signal, and midline structures are normal. The major intracranial flow-voids at the level of the [place] of Gonsalez are preserved. The dural venous sinus flow-voids are maintained. The mastoid air cells and paranasal sinuses are well-aerated. MR/MR head/brain wo con IMPRESSION: 1. There are no acute bleeds or territorial infarcts. No masses are demonstrated. 2. There are chronic microvascular ischemic changes and there is diffuse volume loss. There are chronic infarcts in the right jose j and right cerebellar hemisphere.
== END 2022-11-18 13:21 | disposition home or self-care (01) ==
LOC: HO.MRI 13:20
PROVIDERS: Visit Provider Internal Medicine
DX: G44.52 New daily persistent headache (NDPH) (principal)
CPT/HCPCS: 70551

== ENCOUNTER → 2022-11-25 12:14 | Outpatient (REF) | payer OTHER, MEDICAID, SELFPAY ==
--- NOTE | 2022-11-25 12:18 | HM_ITS ---
Conclusion: 1. Patient was monitored for total period of 6 days and 23 hours 2. Baseline was normal sinus rhythm with average heart rate 83 beats per minute 3. No significant pauses or bradycardia noted 4. Very rare ectopy noted 5. No patient reported events MTDD
== END ==
LOC: HO.CARD 12:14
PROVIDERS: Visit Provider Internal Medicine
DX: I48.0 Paroxysmal atrial fibrillation (principal); R00.2 Palpitations
CPT/HCPCS: 93242

== ENCOUNTER → 2023-02-09 09:06 | Outpatient (BNVA) | payer OTHER, SELFPAY | PROVIDERS: PCP Internal Medicine; Visit Provider Internal Medicine Pulmonary Disease | DX: J45.909 Unspecified asthma, uncomplicated (principal); J38.3 Other diseases of vocal cords | CPT/HCPCS: 99212 ==

== ENCOUNTER 2023-03-05 08:25 | Outpatient (REF) | payer OTHER, SELFPAY ==
--- NOTE | ~2023-03-05 | MM_ITS ---
EXAMINATION: MM SCREENING DIGITAL BREAST TOMOSYNTHESIS, BILATERAL CLINICAL INFORMATION: Screening. Asymptomatic. The lifetime risk of breast cancer based on the Tyrer-Cuzick Model is 2%. COMPARISON: Mammography: 02/14/2022, 12/09/2018, 12/06/2017 TECHNIQUE: Digital breast tomosynthesis is performed in both the craniocaudal and mediolateral oblique views along with computer-aided detection (CAD). Synthesized 2D images are generated from the tomosynthesis. FINDINGS: There are scattered areas of fibroglandular density (ACR BI-RADS breast composition Category b). Breast tissue composition borders on predominantly fatty. Background stromal markings are stable. No developing density or architectural abnormality. There are no significant masses, abnormal calcifications, or other abnormalities. The axilla and skin contours are unremarkable. MM/MM tomosynthesis screening BI IMPRESSION: No mammographic evidence of malignancy. ASSESSMENT: BI-RADS 1: Negative RECOMMENDATION: Routine annual mammography screening. This patient's information was entered into a reminder system with a target due date for their next mammogram.
== END 2023-03-05 08:26 | disposition home or self-care (01) ==
LOC: HO.MAMMO 08:25
PROVIDERS: Visit Provider Internal Medicine
DX: Z12.31 Encounter for screening mammogram for malignant neoplasm of breast (principal)
CPT/HCPCS: 77063; 77067

== ENCOUNTER 2023-05-17 10:22 | Emergency (ER) | payer OTHER, SELFPAY ==
--- NOTE | 2023-05-17 10:24 | ECG_ITS ---
Test Reason : CHEST PAIN Blood Pressure : / mmHG Vent. Rate : 073 BPM Atrial Rate : 073 BPM P-R Int : 188 ms QRS Dur : 086 ms QT Int : 428 ms P-R-T Axes : 053 009 041 degrees QTc Int : 471 ms Normal sinus rhythm Possible Left atrial enlargement Borderline ECG When compared with ECG of 29-MAR-2022 20:21, Criteria for Septal infarct are no longer Present Referred By: Generic ED Physician Electronically Signed By:IRVIN NICOLAS MD
[2023-05-17 10:30] VITALS: BP 153/76; PULSE 77; RESP 16; TEMP 36.7; O2SAT 98; BMI 21.6
[2023-05-17 11:06] LABS: MANUAL DIFF FLAG NO
[2023-05-17 11:07] LABS: Basophils Percent Auto 0.3 % (0-2); Eosinophils Absolute Auto 0.2 X10*3/uL (0.0-0.4); Eosinophils Percent Auto 6.2 % (0-4); Hemoglobin 11.8 g/dl (12.0-16.0); Lymphocytes Absolute Auto 1.1 X10*3/uL (1.2-4.9); Lymphocytes Percent Auto 36.2 % (20-40); Mean Corpuscular HGB Conc 31.9 g/dl (31.0-35.0); Mean Corpuscular Hemoglobin 29.4 pg (27.0-33.0); Mean Platelet Volume 10.9 fL (9.4-12.3); Monocytes Absolute Auto 0.3 X10*3/uL (0.1-1.2); Monocytes Percent Auto 10.3 % (2-11); Neutrophils Absolute Auto 1.4 x10*3/uL (2.0-8.3); Platelet Count 172 X10*3/uL (160-400); Red Blood Count 4.02 X10*6/uL (4.20-5.50); Red Cell Distribution Width 12.8 % (11.0-16.0); White Blood Count 2.9 X10*3/uL (4.8-10.8)
[2023-05-17 11:21] LABS: IDNOW Serial# 08D9AD1C
[2023-05-17 11:22] LABS: COVID-19 Test Positive (Negative)
[2023-05-17 11:32] LABS: Alanine Aminotransferase 24 U/L (0-31); Albumin Level 3.7 g/dL (3.5-5.0); Alkaline Phosphatase 62 U/L (39-117); Anion Gap 10 (12-20); Aspartate Amino Transferase 26 U/L (5-31); Bilirubin Total 0.2 mg/dL (0.0-1.0); Blood Urea Nitrogen 15 mg/dL (9-16); Calcium 9.8 mg/dL (8.4-10.2); Carbon Dioxide 30 mmol/L (22-29); Chloride 106 mmol/L (96-108); Creatinine Clr Calc Pharmacy 54.7; Estimated Glomerular Filt Rate > 60; Glucose Random 89 mg/dL (60-115); Potassium 4.5 mmol/L (3.3-5.1); Sodium 141 mmol/L (135-145)
[2023-05-17 11:46] LABS: Troponin-I High Sensitivity < 2.7 ng/L (<3.5-17.0)
== END 2023-05-17 15:46 | disposition left against medical advice (07) ==
PROVIDERS: Emergency Provider Emergency Medicine; PCP Internal Medicine
DX: U07.1 COVID-19 (principal); R07.9 Chest pain, unspecified; R06.02 Shortness of breath
CPT/HCPCS: 80053; 84484; 85025; 87635; 93005; 99283

== ENCOUNTER → 2023-05-17 10:24 | Outpatient (BNV) | payer OTHER, SELFPAY | PROVIDERS: Emergency Provider Emergency Medicine; PCP Internal Medicine; Visit Provider Internal Medicine Cardiovascular Disease | DX: R07.9 Chest pain, unspecified (principal) | CPT/HCPCS: 93010 ==

== ENCOUNTER 2023-05-18 14:23 | Emergency (ER) | payer OTHER, SELFPAY ==
--- NOTE | ~2023-05-18 | XR_ITS ---
EXAMINATION: XR CHEST CLINICAL INFORMATION: Cough. COMPARISON: 04/26/2022 TECHNIQUE: 2 views of the chest were obtained. FINDINGS: The lung volumes are low and the patient is mildly rotated. The cardiomediastinal silhouette is stable. There is no focal lung consolidation or evidence for significant pleural effusion. The bony structures and soft tissues are unremarkable. XR/XR chest 2V IMPRESSION: No active cardiopulmonary disease.
--- NOTE | ~2023-05-18 | CT_ITS ---
EXAMINATION: CT HEAD WITHOUT CONTRAST CLINICAL INFORMATION: Weakness and AMS. COMPARISON: CT brain 03/29/2022. TECHNIQUE: Contiguous axial imaging was performed from the skull base to vertex without intravenous administration of contrast. This CT examination was performed using dose optimization techniques as appropriate, variously including the following: *Automated exposure control *Adjustment of mA and/or kV according to patient size (this includes techniques or standardized protocols for targeted exams where dose is matched to indication/reason for exam; i.e. extremities or head) *Use of iterative reconstruction technique DLP: 686 mGy-cm FINDINGS: There is no acute intra-axial, extra-axial bleed, masses or midline shift. There is no acute infarction evolution. There is diffuse periventricular hypodensity in both cerebral hemispheres more in the frontal lobes likely chronic small vessel ischemic changes. The lateral ventricles are symmetrical in size and configuration but enlarged. Bone windows reveal no calvarial abnormality. There is no scalp soft tissue abnormality. Bilateral paranasal sinuses and mastoid air cells are well-aerated axilla minimal mucoperiosteal thickening left maxillary sinus.. CT/CT head/brain wo IV con IMPRESSION: 1. No acute intracranial process seen. 2. Age-related cerebral volume loss with chronic small vessel ischemic changes. 3. No change from previous exam 03/29/2022
[2023-05-18 14:59] VITALS: BP 150/68; PULSE 72; RESP 18; TEMP 36.7; O2SAT 97
[2023-05-18 15:00] VITALS: BP 180/80; PULSE 68; O2SAT 98
--- NOTE | 2023-05-18 15:02 | ECG_ITS ---
Test Reason : CHEST PAIN Blood Pressure : / mmHG Vent. Rate : 068 BPM Atrial Rate : 068 BPM P-R Int : 192 ms QRS Dur : 082 ms QT Int : 448 ms P-R-T Axes : 051 002 052 degrees QTc Int : 476 ms Normal sinus rhythm Possible Left atrial enlargement Minimal voltage criteria for LVH, may be normal variant ( R in aVL ) Borderline ECG When compared with ECG of 17-MAY-2023 10:29, No significant change was found Referred By: Generic ED Physician Electronically Signed By:KELECHI NICHOLE
[2023-05-18 15:53] LABS: MANUAL DIFF FLAG NO
[2023-05-18 15:59] LABS: Basophils Percent Auto 0.3 % (0-2); Eosinophils Absolute Auto 0.1 X10*3/uL (0.0-0.4); Eosinophils Percent Auto 3.4 % (0-4); Hematocrit 37.2 % (37.0-47.0); Hemoglobin 11.9 g/dl (12.0-16.0); Lymphocytes Percent Auto 28.9 % (20-40); Mean Corpuscular Hemoglobin 29.5 pg (27.0-33.0); Mean Corpuscular Volume 92.1 fL (80.0-98.0); Mean Platelet Volume 11.5 fL (9.4-12.3); Monocytes Absolute Auto 0.3 X10*3/uL (0.1-1.2); Monocytes Percent Auto 7.3 % (2-11); Neutrophils Absolute Auto 2.2 x10*3/uL (2.0-8.3); Neutrophils Percent Auto 60.1 % (45-73); Platelet Count 188 X10*3/uL (160-400); Red Blood Count 4.04 X10*6/uL (4.20-5.50); Red Cell Distribution Width 12.8 % (11.0-16.0); White Blood Count 3.6 X10*3/uL (4.8-10.8)
[2023-05-18 16:10] LABS: Alanine Aminotransferase 24 U/L (0-31); Albumin Level 3.7 g/dL (3.5-5.0); Alkaline Phosphatase 55 U/L (39-117); Anion Gap 8 (12-20); Aspartate Amino Transferase 25 U/L (5-31); Bilirubin Total 0.3 mg/dL (0.0-1.0); Blood Urea Nitrogen 15 mg/dL (9-16); Calcium 9.5 mg/dL (8.4-10.2); Carbon Dioxide 32 mmol/L (22-29); Chloride 107 mmol/L (96-108); Estimated Glomerular Filt Rate > 60; Glucose Random 87 mg/dL (60-115); Potassium 4.2 mmol/L (3.3-5.1); Sodium 143 mmol/L (135-145); Total Protein 7.1 g/dL (6.5-8.0)
[2023-05-18 16:12] VITALS: BP 140/70; PULSE 64; RESP 12; TEMP 36.6; O2SAT 98; BMI 26.5
[2023-05-18 16:23] LABS: INTERNATIONAL NORM RATIO 1.1 (0.9-1.1); Prothrombin Time 13.3 SEC (11.1-13.3)
--- NOTE | 2023-05-18 18:21 | ED_ITS ---
HPI - General Adult General Chief complaint: Weakness Stated complaint: chest pain Time Seen by Provider: 05/18/23 15:36 Source: patient and family Mode of arrival: EMS Limitations: language barrier History of Present Illness HPI narrative: Patient is a 77-year-old female who presents emergency department with her for evaluation of multiple complaints. Patient has dementia at baseline them she is able to answer questions. Her is providing HPI at this time. She reportedly patient has been increasingly weak and fatigued for the past 4 days. Yesterday she had reports of chest pain and shortness of breath. Last night she seemed more weak than she has over the past few days. reports that at approximately 13:55 today the patient had expressed to him ?I think I just had a stroke I feel far away in gone the states that she did not know who he was which she typically would recognize him. At this time she is aware of who he is. Currently she appears to be at her baseline mentation by his account. Per her she has a known history of stroke. Related Data Home Medications Medication Instructions Recorded Confirmed aspirin 81 mg tablet,delayed 81 mg PO DAILY 12/05/20 03/17/23 release (Enteric Coated Aspirin) cholecalciferol (vitamin D3) 25 25 mcg PO DAILY 12/05/20 03/17/23 mcg (1,000 unit) capsule fluticasone propionate 50 1 spray intranasal DAILY 08/13/21 03/17/23 mcg/actuation nasal spray,suspension metoprolol succinate 25 mg 25 mg PO DAILY 08/13/21 03/17/23 tablet,extended release 24 hr Previous Rx's Medication Instructions Recorded ipratropium 0.5 mg-albuterol 3 mg 3 ml inhalation Q4-6H PRN 09/10/21 (2.5 mg base)/3 mL nebulization Shortness Of Breath #180 mL soln acetaminophen 650 mg 650 mg PO Q8H pain #60 tabs 09/24/21 tablet,extended release diclofenac sodium 1 % topical gel 4 g topical QID PRN pain (scale 10/13/21 (Voltaren Arthritis Pain) score 7-10) #100 grams compress.stocking,knee,reg,med #2 ea 02/26/22 meclizine 25 mg tablet 25 mg PO BID PRN dizziness #30 tabs 04/10/22 atorvastatin 80 mg tablet 80 mg PO QPM #90 tabs 11/17/22 ciprofloxacin 0.3 %-dexamethasone 4 drp otic (ears) BID 7 days #7.5 12/15/22 0.1 % ear drops,suspension mL (Ciprodex) Ventolin HFA 90 mcg/actuation 2 puff inhalation Q6H PRN 12/24/22 aerosol inhaler (albuterol sulfate) shortness of breath or wheezing 30 days #8 grams Grab bar #2 ea 12/29/22 Shower Chair #1 12/29/22 handheld showerhead #1 ea 12/29/22 incontinence pads #240 ea 12/29/22 toilet frame #1 12/29/22 underpads (Bed Underpads) #100 12/29/22 walker (Ultra-Light Rollator misc) #1 12/29/22 apixaban 5 mg tablet (Eliquis) 5 mg PO BID 30 days #60 tabs 01/21/23 calcium carbonate 500 mg-vitamin 1 tab PO BID 90 days #180 tabs 01/28/23 D3 10 mcg (400 unit) tablet (Calcium 500 With D) budesonide-formoterol HFA 160 2 puff inhalation BID 30 days 02/09/23 mcg-4.5 mcg/actuation aerosol #10.2 grams inhaler (Symbicort) lisinopril 40 mg tablet 40 mg PO DAILY #90 tabs 03/17/23 torsemide 10 mg tablet 10 mg PO DAILY 90 days #90 tabs 03/17/23 Allergies Allergy/AdvReac Type Severity Reaction Status Date / Time oxycodone [From Percocet] Allergy Intermediate Agitated Verified 03/17/23 10:21 Review of Systems Review of Systems: Yes all other systems are reviewed and are negative [facility] Past Medical History Attestation statement: The following information was validated with the patient. Source: old records reviewed Medical History Abdominal hyperesthesia Acute CVA (cerebrovascular accident) Afib Dyspepsia GERD (gastroesophageal reflux disease) History of CVA (cerebrovascular accident) HTN (hypertension) IBS (irritable bowel syndrome) Osteoarthritis of lumbar spine Scoliosis Surgical History H/O bilateral breast reduction surgery H/O section H/O oophorectomy Hx of hysterectomy Status post ablation of incompetent vein using laser (06/12/22) Family History Family History Son HTN (hypertension) Father No problems noted. Mother No problems noted. 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) Alcohol intake: never Patient Tobacco Use Status: Never used Tobacco Smoked in Last 30 Days: No e-Cigarette/Vaping Use: Never Used Second Hand Smoke Exposure: No Use of substances other than those prescribed or required for medical reasons: No Advance Directives: Yes Advance Directives on File: Yes Advance Directives Date on File: 08/13/21 service: No Current occupational status: disabled Cognitive needs: No Hearing needs: No Vision needs: Yes (Glasses) Physical Exam ED Vital Signs: Vital Signs - 24 hr 05/18/23 14:59 05/18/23 16:12 05/18/23 19:11 Temperature 98.0 F 98 F 98.2 F Pulse Rate 72 64 63 Respiratory Rate 18 12 17 Blood Pressure 150/68 H 140/70 H 158/72 H Pulse Oximetry 97 98 97 Oxygen Delivery Method Room Air Room Air Room Air 05/18/23 20:51 Temperature 98.2 F Pulse Rate 67 Respiratory Rate 17 Blood Pressure 174/72 H Pulse Oximetry 95 Oxygen Delivery Method Room Air BMI result Body Mass Index 26.5 Appearance: Alert.? Oriented to person and place and time. No acute distress.?Normal affect. Eyes: Pupils equal, round and reactive to light.? EOMI ENT: Pharynx normal.?? Neck: Normal inspection.? Neck supple.?? CVS: Heart sounds normal. Normal heart rate and rhythm.? Pulses normal.?? Respiratory: No respiratory distress.? Lung sounds clear to auscultation bilaterally?? Abdomen: Soft and non-tender. Normoactive bowel sounds. .?? Skin: Skin warm and dry.? Normal skin color.? Extremities: No lower extremity edema.? No calf ttp? Neuro: Moves all extremities spontaneously. Sensation intact bilaterally. CN II- XII intact. No focal neuro deficits. Ambulatory with slow steady gait and assistance from her uses a cane at baseline NIH Stroke Scale Time: 18:15 Level of Consciousness: Alert Level of Consciousness Questions: Answers both questions correctly Level of Consciousness Commands: Performs both tasks correctly Best Gaze: Normal Visual: No visual loss Facial Palsy: Normal Motor Arm (Right): No drift Motor Arm (Left): No drift Motor Leg (Right): No drift Motor Leg (Left): No drift Limb Ataxia: Absent Sensory: Normal Best Language: No aphasia Dysarthia: Normal Extinction and Inattention: No abnormality Score: 0 Course Reevaluation(s) Reevaluation #1: Patient is COVID-19 positive, I reviewed these findings with patient and her . CBC reveals a leukopenia that is consistent with baseline, overall unremarkable CMP. BNP not consistent with CHF. Troponin 4.0, EKG without acute ischemic findings, unlikely ACS. Chest x-ray without acute cardiopulmonary findings. CT of the head without evidence of acute intracranial abnormalities. No respiratory distress, she is ambulatory with the assistance of her , uses a cane at baseline. She has no hypoxia. Discussed with patient and her , at this time they would like to be discharged home, offered to have case management evaluation due to reported increased weakness, for determination as to whether physical therapy/short-term rehab would be of benefit, stable however declined. Reviewed worrisome signs and symptoms that would warrant re- evaluation in the emergency department. Advised outpatient follow-up with primary care provider within 1-3 days. All questions answered. Time: 19:23 Medical Decision Making Medical Decision Making MDM Narrative: Patient is a 77-year-old female with past medical history of be AF on Eliquis, hypertension, hyperlipidemia, cerebellar stroke, cognitive impairment presenting to emergency department with her for evaluation of weakness, increased confusion, chest pain, shortness of breath as per HPI. Will obtain CBC to evaluate for leukocytosis/ anemia, CMP and lipase to evaluate for abnormal electrolytes /abnormal renal function/ abnormal hepatic/biliary function, EKG and troponin to evaluate for ischemia/ACS. Chest x-ray to evaluate for consolidation/ infiltrate/ mass/ pulmonary congestion and Urinalysis, COVID- 19/influenza testing. Differential Diagnosis Differential Diagnoses: The differential diagnosis associated with the pr esentation includes (Urinary tract infection, COVID-19, ACS, pneumonia my NIH stroke score of 0, lower suspicion for CVA at this time) Admission/Observation Consideration of admission/observation: Escalation of care including admission/observation considered (I considered admission for chest pain, see course narrative for further detail) Lab Data MDM Lab Attestation statement: I reviewed the patient's lab results. (See course narrative for further detail) 05/18/23 15:48 05/18/23 15:48 Labs: Lab Results 05/18/23 05/18/23 05/18/23 Range/Units 15:48 15:48 15:48 WBC 3.6 L (4.8-10.8) X10*3/uL RBC 4.04 L (4.20-5.50) X10*6/uL Hgb 11.9 L (12.0-16.0) g/dl Hct 37.2 (37.0-47.0) % MCV 92.1 (80.0-98.0) fL MCH 29.5 (27.0-33.0) pg MCHC 32.0 (31.0-35.0) g/dl RDW 12.8 (11.0-16.0) % Plt Count 188 (160-400) X10*3/uL MPV 11.5 (9.4-12.3) fL Immature Gran % (Auto) 0.0 (0.0-0.4) % Neut % (Auto) 60.1 (45-73) % Lymph % (Auto) 28.9 (20-40) % [place] % (Auto) 7.3 (2-11) % Eos % (Auto) 3.4 (0-4) % Baso % (Auto) 0.3 (0-2) % Lymph # (Auto) 1.0 L (1.2-4.9) X10*3/uL [place] # (Auto) 0.3 (0.1-1.2) X10*3/uL Eos # (Auto) 0.1 (0.0-0.4) X10*3/uL Baso # (Auto) 0.0 (0.0-0.2) X10*3/uL Abs Immat Gran (auto) 0.00 (0.00-0.03) X10*3/uL Absolute Neuts (auto) 2.2 (2.0-8.3) x10*3/uL Absolute Nucleated RBC 0.000 (0.0-0.012) X10*3/uL Nucleated RBC % (auto) 0.0 (0.0-0.2) /100WBC PT 13.3 (11.1-13.3) SEC INR 1.1 (0.9-1.1) Sodium 143 (135-145) mmol/L Potassium 4.2 (3.3-5.1) mmol/L Chloride 107 (96-108) mmol/L Carbon Dioxide 32 H (22-29) mmol/L Anion Gap 8 L (12-20) BUN 15 (9-16) mg/dL Creatinine 0.85 (0.5-1.4) mg/dL Estim Creat Clear Calc TNP Estimated GFR > 60 Random Glucose 87 (60-115) mg/dL Calcium 9.5 (8.4-10.2) mg/dL Total Bilirubin 0.3 (0.0-1.0) mg/dL AST 25 (5-31) U/L ALT 24 (0-31) U/L Alkaline Phosphatase 55 (39-117) U/L Troponin I High Sens (<3.5-17.0) ng/L B-Natriuretic Peptide (<100) pg/mL Total Protein 7.1 (6.5-8.0) g/dL Albumin 3.7 (3.5-5.0) g/dL Urine Color Urine Appearance Urine pH (5.0-9.0) Ur Specific [place] (1.005-1.025) Urine Protein (Neg-Trace) mg/dL Urine Glucose (UA) (Negative) mg/dL Urine Ketones (Negative) mg/dL Urine Blood (Negative) Urine Nitrite (Negative) Ur Leukocyte Esterase (Negative) COVID-19 ([facility]ARAN) (Negative) COVID-19 Clin Com Influenza Type A ([facility]) (Negative) Influenza Type B ([facility]) (Negative) Influenza A & B Note 05/18/23 05/18/23 05/18/23 Range/Units 15:48 15:48 18:15 WBC (4.8-10.8) X10*3/uL RBC (4.20-5.50) X10*6/uL Hgb (12.0-16.0) g/dl Hct (37.0-47.0) % MCV (80.0-98.0) fL MCH (27.0-33.0) pg MCHC (31.0-35.0) g/dl RDW (11.0-16.0) % Plt Count (160-400) X10*3/uL MPV (9.4-12.3) fL Immature Gran % (Auto) (0.0-0.4) % Neut % (Auto) (45-73) % Lymph % (Auto) (20-40) % [place] % (Auto) (2-11) % Eos % (Auto) (0-4) % Baso % (Auto) (0-2) % Lymph # (Auto) (1.2-4.9) X10*3/uL [place] # (Auto) (0.1-1.2) X10*3/uL Eos # (Auto) (0.0-0.4) X10*3/uL Baso # (Auto) (0.0-0.2) X10*3/uL Abs Immat Gran (auto) (0.00-0.03) X10*3/uL Absolute Neuts (auto) (2.0-8.3) x10*3/uL Absolute Nucleated RBC (0.0-0.012) X10*3/uL Nucleated RBC % (auto) (0.0-0.2) /100WBC PT (11.1-13.3) SEC INR (0.9-1.1) Sodium (135-145) mmol/L Potassium (3.3-5.1) mmol/L Chloride (96-108) mmol/L Carbon Dioxide (22-29) mmol/L Anion Gap (12-20) BUN (9-16) mg/dL Creatinine (0.5-1.4) mg/dL Estim Creat Clear Calc Estimated GFR Random Glucose (60-115) mg/dL Calcium (8.4-10.2) mg/dL Total Bilirubin (0.0-1.0) mg/dL AST (5-31) U/L ALT (0-31) U/L Alkaline Phosphatase (39-117) U/L Troponin I High Sens 4.0 (<3.5-17.0) ng/L B-Natriuretic Peptide 108 H (<100) pg/mL Total Protein (6.5-8.0) g/dL Albumin (3.5-5.0) g/dL Urine Color Urine Appearance Urine pH (5.0-9.0) Ur Specific [place] (1.005-1.025) Urine Protein (Neg-Trace) mg/dL Urine Glucose (UA) (Negative) mg/dL Urine Ketones (Negative) mg/dL Urine Blood (Negative) Urine Nitrite (Negative) Ur Leukocyte Esterase (Negative) COVID-19 (TARAN) (Negative) COVID-19 Clin Com Influenza Type A ([facility]) Negative (Negative) Influenza Type B ([facility]) Negative (Negative) Influenza A & B Note See Note 05/18/23 05/18/23 Range/Units 18:15 18:38 WBC (4.8-10.8) X10*3/uL RBC (4.20-5.50) X10*6/uL Hgb (12.0-16.0) g/dl Hct (37.0-47.0) % MCV (80.0-98.0) fL MCH (27.0-33.0) pg MCHC (31.0-35.0) g/dl RDW (11.0-16.0) % Plt Count (160-400) X10*3/uL MPV (9.4-12.3) fL Immature Gran % (Auto) (0.0-0.4) % Neut % (Auto) (45-73) % Lymph % (Auto) (20-40) % [place] % (Auto) (2-11) % Eos % (Auto) (0-4) % Baso % (Auto) (0-2) % Lymph # (Auto) (1.2-4.9) X10*3/uL [place] # (Auto) (0.1-1.2) X10*3/uL Eos # (Auto) (0.0-0.4) X10*3/uL Baso # (Auto) (0.0-0.2) X10*3/uL Abs Immat Gran (auto) (0.00-0.03) X10*3/uL Absolute Neuts (auto) (2.0-8.3) x10*3/uL Absolute Nucleated RBC (0.0-0.012) X10*3/uL Nucleated RBC % (auto) (0.0-0.2) /100WBC PT (11.1-13.3) SEC INR (0.9-1.1) Sodium (135-145) mmol/L Potassium (3.3-5.1) mmol/L Chloride (96-108) mmol/L Carbon Dioxide (22-29) mmol/L Anion Gap (12-20) BUN (9-16) mg/dL Creatinine (0.5-1.4) mg/dL Estim Creat Clear Calc Estimated GFR Random Glucose (60-115) mg/dL Calcium (8.4-10.2) mg/dL Total Bilirubin (0.0-1.0) mg/dL AST (5-31) U/L ALT (0-31) U/L Alkaline Phosphatase (39-117) U/L Troponin I High Sens (<3.5-17.0) ng/L B-Natriuretic Peptide (<100) pg/mL Total Protein (6.5-8.0) g/dL Albumin (3.5-5.0) g/dL Urine Color Yellow Urine Appearance Clear Urine pH 7.0 (5.0-9.0) Ur Specific [place] 1.010 (1.005-1.025) Urine Protein Negative (Neg-Trace) mg/dL Urine Glucose (UA) Negative (Negative) mg/dL Urine Ketones Negative (Negative) mg/dL Urine Blood Negative (Negative) Urine Nitrite Negative (Negative) Ur Leukocyte Esterase Negative (Negative) COVID-19 (TARAN) Positive A (Negative) COVID-19 Clin Com See Note Influenza Type A ([facility]) (Negative) Influenza Type B ([facility]) (Negative) Influenza A & B Note Independent Interpretation I performed an independent interpretation of an: EKG and Plain X-Ray (I have personally interpreted chest x-ray and agree with radiologist impression there is no evidence of pneumonia, pneumothorax) Interpretation: Rate: 68 Rhythm:? Normal sinus rhythm [place]:? Normal Normal P waves.? Normal [place]IS[place].?? Normal QRS complex.?? ST T wave :??No ST elevation, no ST depression qTC: 476 The study has been interpreted contemporaneously by me. Radiology Impression Discussion of test interpretation with radiology: I have reviewed the radiologist's reading. Radiologist Impression: CT/CT head/brain wo IV con IMPRESSION: 1.? No acute intracranial process seen. 2. Age-related cerebral volume loss with chronic small vessel ischemic changes.? 3. No change from previous exam 03/29/2022 XR/XR chest 2V IMPRESSION: No active cardiopulmonary disease. Independent Historian Clinical information obtained from an independent historian. History obtained from or confirmed by: Spouse External Record Review External record reviewed: Outpatient record Prescription Management I considered prescription management with: Antiviral (Reviewed Paxlovid, indications for use, medication interactions, used shared decision making with patient and , Paxlovid deferred at this time) Discharge Plan Discharge Clinical Impression: COVID-19 Patient Disposition: Home, Self-Care Instructions: COVID-19 (Coronavirus Disease 2019) (ED) Additional Instructions: You were tested for COVID-19, and it resulted as positive, please wear a mask, and socially distance. You can take Tylenol 500 mg, 2 tablets (1,000mg) every 4-6 hours as needed for pain, fever, but not to exceed 3 doses daily (3,000mg). If you develop worsening breathing, shortness of breath, chest pain, increasing confusion, increasing weakness then you should be re-evaluated. Contact your primary care provider and arrange for a follow-up visit within the next 3 days. ? Prescriptions: No Action ipratropium-albuterol 0.5 mg-3 mg(2.5 mg base)/3 mL solution for nebulization 3 ml inhalation Q4-6H PRN (Reason: Shortness Of Breath) Qty: 180 0RF (DME) compress.stocking,knee,reg,med Misc See Rx Instructions .Route Qty: 2 0RF Rx Instructions: As directed atorvastatin 80 mg tablet 80 mg PO QPM Qty: 90 3RF albuterol sulfate [Ventolin HFA] 90 mcg/actuation HFA aerosol inhaler 2 puff inhalation Q6H PRN (Reason: shortness of breath or wheezing) 30 Days Qty: 8 2RF (DME) Shower Chair Misc See Rx Instructions .Route Qty: 1 0RF Rx Instructions: As directed (DME) Grab bar Misc See Rx Instructions .Route Qty: 2 0RF Rx Instructions: As directed (DME) toilet frame See Rx Instructions .Route .MEDSUPPLY Qty: 1 0RF Rx Instructions: As directed (DME) handheld showerhead See Rx Instructions .Route .MEDSUPPLY Qty: 1 0RF Rx Instructions: As directed (DME) Ultra-Light Rollator Misc See Rx Instructions .Route Qty: 1 0RF Rx Instructions: As directed (DME) underpads [Bed Underpads] Pad See Rx Instructions .Route Qty: 100 6RF Rx Instructions: As directed (DME) incontinence pads regular See Rx Instructions .Route .MEDSUPPLY Qty: 240 6RF Rx Instructions: As directed Eliquis 5 mg tablet 5 mg PO BID 30 Days Qty: 60 5RF calcium carbonate-vitamin D3 [Calcium 500 With D] 500 mg-10 mcg (400 unit) tablet 1 tab PO BID 90 Days Qty: 180 2RF metoprolol succinate 25 mg tablet extended release 24 hr 25 mg PO DAILY fluticasone propionate 50 mcg/actuation spray,suspension 1 spray intranasal DAILY acetaminophen 650 mg tablet extended release 650 mg PO Q8H Qty: 60 0RF lisinopril 40 mg tablet 40 mg PO DAILY Qty: 90 3RF torsemide 10 mg tablet 10 mg PO DAILY 90 Days Qty: 90 0RF diclofenac sodium [Voltaren Arthritis Pain] 1 % gel 4 g topical QID PRN (Reason: pain (scale score 7-10)) Qty: 100 0RF Rx Instructions: apply to shoulders, low back pain meclizine 25 mg tablet 25 mg PO BID PRN (Reason: dizziness) Qty: 30 0RF ciprofloxacin-dexamethasone [Ciprodex] 0.3-0.1 % drops,suspension 4 drp otic (ears) BID 7 Days Qty: 7.5 0RF cholecalciferol (vitamin D3) 25 mcg (1,000 unit) capsule 25 mcg PO DAILY aspirin [Enteric Coated Aspirin] 81 mg tablet,delayed release (DR/EC) 81 mg PO DAILY budesonide-formoterol [Symbicort] 160-4.5 mcg/actuation HFA aerosol inhaler 2 puff inhalation BID 30 Days Qty: 10.2 6RF Referrals: Yeny Bay MD [Primary Care Provider] - Interventions: ED Discharge Assessment Last Done: 05/18/23 21:08 Discharge Date/Time: 05/18/23 21:09
[2023-05-18 18:42] LABS: B Type Natriuretic Peptide 108 pg/mL (<100)
[2023-05-18 18:53] LABS: Appearance Urine Clear; Color Urine Yellow; Glucose Urine UA Negative (Negative); Leukocyte Esterase Urine Negative (Negative); Nitrite Urine Negative (Negative); Urine Blood Negative (Negative); Urine Ketones Negative (Negative); Urine Protein Negative (Neg-Trace)
[2023-05-18 18:55] LABS: COVID-19 Test Positive (Negative); IDNOW Serial# 08D9AD1C
[2023-05-18 18:56] LABS: IDNOW Serial# BCCEAD1C; Influenza A Negative (Negative); Influenza B2 Negative (Negative)
[2023-05-18 19:11] VITALS: BP 158/72; PULSE 63; RESP 17; TEMP 36.8; O2SAT 97
--- NOTE | 2023-05-18 20:14 | PC.NURSE ---
this rn assumed care of pt @ 1900. pt COVID positive. COVID precautions initiated
[2023-05-18 20:51] VITALS: BP 174/72; PULSE 67; RESP 17; TEMP 36.8; O2SAT 95
--- NOTE | 2023-05-18 21:06 | PC.NURSE ---
pt provided with discharge packet. pt at bedside. pt and pt verbalized understanding of discharge plan. pt ambulatory at discharge. pt calm and cooperative
== END 2023-05-18 21:09 | disposition home or self-care (01) ==
PROVIDERS: Nurse Practitioner Family; Emergency Provider Student in an Organized Health Care Education/Training Program; PCP Internal Medicine
DX: U07.1 COVID-19 (principal); R06.02 Shortness of breath; I10 Essential (primary) hypertension; E78.5 Hyperlipidemia, unspecified; I48.91 Unspecified atrial fibrillation; Z86.73 Personal history of transient ischemic attack (TIA), and cerebral infarction without residual deficits; Z79.82 Long term (current) use of aspirin; Z79.899 Other long term (current) drug therapy; Z79.01 Long term (current) use of anticoagulants
CPT/HCPCS: 36415; 70450; 71046; 80053; 81003; 83880; 84484; 85025; 85610; 87502; 87635; 93005; 99284; 99285

== ENCOUNTER 2023-06-16 08:50 | Outpatient (AMB) | payer OTHER, SELFPAY ==
[2023-06-16 08:56] VITALS: BP 119/64; PULSE 85; O2SAT 98; BMI 25.3
--- NOTE | 2023-06-16 08:56 | A.OFFVIS_ITS ---
Intake Vital Signs 06/16/23 08:56 Height 5 ft 5 in Weight 152 lb BMI 25.3 BP 119/64 Blood Pressure Location Rt brachial Position Sitting Pulse 85 Pulse Source Doppler Pulse Oximetry (%) 98 Oxygen Delivery Method Room Air Intake Visit Reasons: Asthma Allergies oxycodone [From Percocet] Allergy (Intermediate, Verified 06/16/23 08:59) Agitated HPI Asthma HPI Details 77-year-old lady, lifetime nonsmoker, wi th underlying history hypertension, AFib previously on Multaq, now followed for asthma and pulmonary component to dyspnea. Patient states that she was not able to tolerate Symbicort secondary to grainy taste in her mouth. She also had coiled approximately 1 months prior and after that she has significant dry residual cough. Patient also complains of acid reflux. [facility] Medical History (Updated 06/16/23 @ 09:22 by Hema Tapia MD) History of CVA (cerebrovascular accident) Afib Acute CVA (cerebrovascular accident) IBS (irritable bowel syndrome) Abdominal hyperesthesia Dyspepsia Osteoarthritis of lumbar spine Scoliosis GERD (gastroesophageal reflux disease) HTN (hypertension) Surgical History Status post ablation of incompetent vein using laser (06/12/22) Hx of hysterectomy H/O oophorectomy H/O bilateral breast reduction surgery H/O section Family History Son HTN (hypertension) Father No problems noted. Mother No problems noted. 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) Alcohol intake: never Patient Tobacco Use Status: Never used Tobacco e-Cigarette/Vaping Use: Never Used Second Hand Smoke Exposure: No Advance Directives Date on File: 08/13/21 service: No Current occupational status: disabled Cognitive needs: No Hearing needs: No Vision needs: Yes (Glasses) Review of Systems Const Denies daytime sleepiness, Denies excessive sweating, Denies fatigue, Denies fever(s), Denies lethargy, Denies malaise, Denies night sweats, Denies snoring and Denies weight loss Eyes Denies blurry vision and Denies itchy eyes ENT Denies nasal congestion, Denies post nasal drip, Denies sinus pain, Denies sinus pressure and Denies other ( Thrush) Card Denies chest pain, Denies pedal edema, Denies dyspnea, Reports dyspnea on exertion, Denies orthopnea and Denies paroxysmal nocturnal dyspnea Resp Reports cough, Denies hemoptysis, Denies excessive phlegm production, Denies dyspnea, Reports dyspnea on exertion, Denies snoring and Denies wheezing GI Denies abdominal pain and Reports heartburn Musc Denies myalgias, Denies arthralgias and Denies joint swelling Skin/Breast Denies rash Neuro Denies memory loss and Denies seizure-like activity Psych Denies abnormal sleep pattern, Denies anxiety and Denies memory loss Endo Denies excessive sweating, Denies fatigue and Denies heat intolerance Eric/Lymph Denies easy bruising Aller/Immun Denies itchy eyes, Denies seasonal rhinorrhea and Denies wheezing Physical Exam Vital Signs: Last Vital Signs Pulse 85 06/16/23 08:56 BP 119/64 06/16/23 08:56 Pulse Ox 98 06/16/23 08:56 Oxygen Delivery Method Room Air 06/16/23 08:56 BMI result Body Mass Index 25.3 Const General: no acute distress and alert Nutritional Appearance: not obese Orientation/consciousness: Other orientation findings ( oriented) HEENT Head: Yes atraumatic Eyes General: appearance normal, both eyes and all related structures Sclerae: sclerae normal EOM: EOMs intact bilaterally Neck Neck: Yes supple Lymphatic: no lymphadenopathy noted Resp Effort & Inspection: normal respiratory effort and no use of accessory muscles Auscultation: clear to auscultation bilaterally Cardio Rate: regular rate Rhythm: regular rhythm Heart sounds: no gallops, no murmurs and no rubs Skin General skin exam: other ( warm) Extrem General: No clubbing, No cyanosis and No edema Assessment & Plan Assessment & Plan (1) Asthma: Code(s): J45.909 - Unspecified asthma, uncomplicated Plan: Poorly controlled as patient is unable to tolerate Symbicort. Will switch to nebulized budesonide and duo nebs. Now with post COVID cough, will treat with p.r.n. codeine syrup for symptomatic relief. (2) GERD (gastroesophageal reflux disease): Code(s): K21.9 - Gastro-esophageal reflux disease without esophagitis Plan: Will start on empiric omeprazole 40 mg twice a day. Medications: New ipratropium-albuterol 0.5 mg-3 mg(2.5 mg base)/3 mL 3 mL inhalation BID 180 mL 6RF 30 days omeprazole 40 mg PO BID 60 caps 6RF 30 days budesonide 0.5 mg (2 mL) inhalation BID 120 mL 6RF 30 days codeine-guaifenesin 10-100 mg/5 mL 10 mL PO Q4-6H PRN 473 mL 0RF cold symptoms 15 days Discontinued budesonide-formoterol 160-4.5 mcg/actuation (Symbicort) Discontinued Reason: Doctor's Order 2 puffs inhalation BID 30 days 10.2 grams 6RF J45.909 - Unspecified asthma, uncomplicated Coding Level of Care Code Est Pt Level 4 (59636) Diagnoses Asthma J45.909 GERD (gastroesophageal reflux disease) K21.9
== END 2023-06-16 09:18 | disposition home or self-care (01) ==
PROVIDERS: PCP Internal Medicine; Visit Provider Internal Medicine Pulmonary Disease
DX: J45.909 Unspecified asthma, uncomplicated (principal); K21.9 Gastro-esophageal reflux disease without esophagitis
CPT/HCPCS: 99214

== ENCOUNTER → 2023-06-16 08:50 | Outpatient (BNVA) | payer OTHER, SELFPAY | PROVIDERS: PCP Internal Medicine; Visit Provider Internal Medicine Pulmonary Disease | DX: J45.909 Unspecified asthma, uncomplicated (principal); K21.9 Gastro-esophageal reflux disease without esophagitis | CPT/HCPCS: 99212 ==

== ENCOUNTER 2023-06-29 09:41 | Outpatient (AMB) | payer OTHER, MEDICAID, SELFPAY ==
--- NOTE | 2023-06-29 09:44 | A.OFFVIS_ITS ---
Intake Vital Signs 06/29/23 09:45 Height 5 ft 5 in Weight 154 lb 5.177 oz BMI 25.7 BP 120/70 Blood Pressure Location Lt brachial Position Sitting Pulse 82 Intake Visit Reasons: 1 yr fu Intake Note: 1 year follow up Pharmacy Technician Instructor Required: No Accompanied by: Self / Same As Patient Allergies oxycodone [From Percocet] Allergy (Intermediate, Verified 06/29/23 09:45) Agitated Medication List - Last Reconciled 06/29/23 by Tylor Martinez MD acetaminophen ER 650 mg PO Q8H apixaban (Eliquis) 5 mg PO BID 30 days aspirin (Enteric Coated Aspirin) 81 mg PO DAILY atorvastatin 80 mg PO QPM budesonide 0.5 mg (2 mL) inhalation BID 30 days calcium carbonate-vitamin D3 500 mg-10 mcg (400 unit) (Calcium 500 With D) 1 tab PO BID 90 days cholecalciferol (vitamin D3) 25 mcg PO DAILY ciprofloxacin-dexamethasone 0.3-0.1 % (Ciprodex) 4 drps otic (ears) BID 7 days codeine-guaifenesin 10-100 mg/5 mL 10 mL PO Q4-6H PRN 15 days compress.stocking,knee,reg,med As directed diclofenac sodium 1% (Voltaren Arthritis Pain) 4 grams topical QID PRN fluticasone propionate 50 mcg/actuation 1 spray intranasal DAILY Grab bar As directed [handheld showerhead As directed] [incontinence pads As directed] ipratropium-albuterol 0.5 mg-3 mg(2.5 mg base)/3 mL 3 mL inhalation Q4-6H PRN ipratropium-albuterol 0.5 mg-3 mg(2.5 mg base)/3 mL 3 mL inhalation BID 30 days lisinopril 40 mg PO DAILY meclizine 25 mg PO BID PRN metoprolol succinate ER 25 mg PO DAILY omeprazole 40 mg PO BID 30 days Shower Chair As directed [toilet frame As directed] torsemide 10 mg PO DAILY 90 days underpads (Bed Underpads) As directed Ventolin HFA 90 mcg/actuation (albuterol sulfate) 2 puffs inhalation Q6H PRN 30 days NS walker (Ultra-Light Rollator misc) As directed HPI HPI Comments History of Present Illness Details Becca returns for follow-up with her . In the past, she used to see [facility]. She used to have a lot of concerns about leg swelling but it seems rather from a venous insufficiency. After seeing vascular undergoing ablation, that seems resolved at this time. Based on available records, she has a history of coronary disease and prior myocardial infarction and distal LAD disease. Has a history of paroxysmal atrial fibrillation. One hospitalization to [facility] in December 2020 with atrial fibrillation with rapid rate. At that time, notes state Multaq use, she did not take it post discharge. Otherwise, she is on Eliquis. There is another hospitalization for cerebellar stroke. At that time, it seems that aspirin was added to her regimen. Today, states patient has had multiple complaints including sensations of heart racing frequently, chest pains with and without exertion and shortness of breath. Overall, no specific patterns for any of these and can happen any time. Recent COVID from last month. Unclear if that plays any role in symptom s. [facility] Medical History (Updated 06/16/23 @ 09:22 by Hema Tapia MD) History of CVA (cerebrovascular accident) Afib Acute CVA (cerebrovascular accident) IBS (irritable bowel syndrome) Abdominal hyperesthesia Dyspepsia Osteoarthritis of lumbar spine Scoliosis GERD (gastroesophageal reflux disease) HTN (hypertension) Surgical History Status post ablation of incompetent vein using laser (06/12/22) Hx of hysterectomy H/O oophorectomy H/O bilateral breast reduction surgery H/O section Family History Son HTN (hypertension) Father No problems noted. Mother No problems noted. 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) Alcohol intake: never Patient Tobacco Use Status: Never used Tobacco e-Cigarette/Vaping Use: Never Used Second Hand Smoke Exposure: No Advance Directives Date on File: 08/13/21 service: No Current occupational status: disabled Cognitive needs: No Hearing needs: No Vision needs: Yes (Glasses) Review of Systems Const Denies weakness ENT Denies dizziness Card Denies chest pain, Denies chest pain with activity, Denies syncope, Denies rapid heart rate, Denies pedal edema, Denies edema, Denies leg edema, Denies lightheadedness, Denies palpitations, Denies dyspnea, Denies dyspnea on exertion and Denies orthopnea Resp Denies cough, Denies dyspnea and Denies dyspnea on exertion GI Denies hematochezia and Denies change in stool character Musc Denies abnormal gait, Denies muscle cramps, Denies muscle weakness, Denies numbness, Denies radiating pain into limb and Denies tingling Neuro Denies abnormal gait, Denies dizziness, Denies syncope, Denies numbness, Denies tingling and Denies weakness Endo Denies palpitations Physical Exam Vital Signs: Last Vital Signs Pulse 82 06/29/23 09:45 BP 120/70 06/29/23 09:45 BMI result Body Mass Index 25.7 Const General: comfortable and no acute distress Orientation/consciousness: patient oriented x3 HEENT Other: Unremarkable Head: Yes normal to inspection Neck Neck: Yes normal visual inspection Chest Chest palpation & inspection: normal inspection of the chest Resp Auscultation: clear to auscultation bilaterally Cardio Palpation: normal PMI Heart sounds: S1 normal heart sound present, S2 normal heart sound present, no gallops, no murmurs and no rubs GI Palpation (GI): Soft to palpation Back/Spine/Pelvis Other: unremarkable Skin General skin exam: no rashes or lesions noted Neuro General: patient oriented x3 Extrem General: Yes normal to inspection Psych Mental Status: mental status grossly normal Assessment & Plan Assessment & Plan (1) PAF (paroxysmal atrial fibrillation): Code(s): I48.0 - Paroxysmal atrial fibrillation Plan: On metoprolol and Eliquis. As she is complaining of palpitations, we will do another Holter to see if there is any atrial fibrillation or other etiology. (2) Cerebellar infarct: Code(s): I63.9 - Cerebral infarction, unspecified Plan: Brain CT reported to have subtle right cerebellar infarct but also mentions that seen on prior studies. Chronic microangiopathy and cerebral volume loss. Carotid ultrasound without any significant stenosis. Per Neurology, aspirin has been added. Unclear if small-vessel disease or embolic or both. No overt deficits. (3) Atherosclerotic cardiovascular disease: Code(s): I25.10 - Atherosclerotic heart disease of [place] coronary artery without angina pectoris Plan: Mention of distal LAD disease in cardiology consultation. Myocardial perfusion imaging study from December 2020 with probable normal perfusion. With regard to chest pain, somewhat atypical as she describes it all the time. We will get another stress test and echocardiogram for evaluation. Remains on aspirin, beta-blockers and high-dose statins. Clinically, she has got no symptoms like angina. (4) Essential hypertension: Code(s): I10 - Essential (primary) hypertension Plan: Stable. No changes. Orders: Orders ECG 3 day holter monitor Today I48.0 - Paroxysmal atrial fibrillation CA stress test Today I25.10 - Atherosclerotic heart disease of [place] coronary artery without angina pectoris, R07.2 - Precordial pain NM cardiolite stress test Today I25.10 - Atherosclerotic heart disease of [place] coronary artery without angina pectoris, R07.2 - Precordial pain CA echo transthoracic complete Today I25.10 - Atherosclerotic heart disease of [place] coronary artery without angina pectoris Coding Level of Care Code Est Pt Level 4 (97270) Diagnoses PAF (paroxysmal atrial fibrillation) I48.0 Cerebellar infarct I63.9 Atherosclerotic cardiovascular disease I25.10 Essential hypertension I10
[2023-06-29 09:45] VITALS: BP 120/70; PULSE 82; BMI 25.7
== END 2023-06-29 10:50 | disposition home or self-care (01) ==
PROVIDERS: PCP Internal Medicine; Visit Provider Internal Medicine
DX: I48.0 Paroxysmal atrial fibrillation (principal); I63.9 Cerebral infarction, unspecified; I25.10 Atherosclerotic heart disease of native coronary artery without angina pectoris; I10 Essential (primary) hypertension
CPT/HCPCS: 99214

== ENCOUNTER → 2023-06-29 09:41 | Outpatient (BNVA) | payer OTHER, MEDICAID, SELFPAY | PROVIDERS: PCP Internal Medicine; Visit Provider Internal Medicine | DX: I25.10 Atherosclerotic heart disease of native coronary artery without angina pectoris (principal); I48.0 Paroxysmal atrial fibrillation; I63.9 Cerebral infarction, unspecified; I10 Essential (primary) hypertension | CPT/HCPCS: 99212 ==

== ENCOUNTER 2023-07-08 16:00 | Outpatient (AMB) | payer OTHER, SELFPAY ==
--- NOTE | 2023-07-08 16:04 | MHC.PC.OV ---
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 Accompanied by: Significant Other Allergies oxycodone [From Percocet] Allergy (Intermediate, Verified 07/08/23 16:42) Agitated Medication List - Last Reconciled 07/08/23 by Yeny Rosenthal MD acetaminophen ER 650 mg PO Q8H apixaban (Eliquis) 5 mg PO BID 30 days aspirin (Enteric Coated Aspirin) 81 mg PO DAILY atorvastatin 80 mg PO QPM budesonide 0.5 mg (2 mL) inhalation BID 30 days calcium carbonate-vitamin D3 500 mg-10 mcg (400 unit) (Calcium 500 With D) 1 tab PO BID 90 days cholecalciferol (vitamin D3) 25 mcg PO DAILY ciprofloxacin-dexamethasone 0.3-0.1 % (Ciprodex) 4 drps otic (ears) BID 7 days codeine-guaifenesin 10-100 mg/5 mL 10 mL PO Q4-6H PRN 15 days compress.stocking,knee,reg,med As directed diclofenac sodium 1% (Voltaren Arthritis Pain) 4 grams topical QID PRN fluticasone propionate 50 mcg/actuation 1 spray intranasal DAILY Grab bar As directed [handheld showerhead As directed] [incontinence pads As directed] ipratropium-albuterol 0.5 mg-3 mg(2.5 mg base)/3 mL 3 mL inhalation Q4-6H PRN ipratropium-albuterol 0.5 mg-3 mg(2.5 mg base)/3 mL 3 mL inhalation BID 30 days lisinopril 40 mg PO DAILY meclizine 25 mg PO BID PRN metoprolol succinate ER 25 mg PO DAILY omeprazole 40 mg PO BID 30 days Shower Chair As directed [toilet frame As directed] torsemide 10 mg PO DAILY 90 days underpads (Bed Underpads) As directed Ventolin HFA 90 mcg/actuation (albuterol sulfate) 2 puffs inhalation Q6H PRN 30 days NS walker (Ultra-Light Rollator misc) As directed Tobacco use date assessed: 10/29/22 Fall risk assessment: No Falls in past year Last assessed Fall Risk: 07/08/23 Dental Screening Dental Screen Date: 07/08/23 Did you have a dental visit in the last 12 months?: No Did you have a dental problem in the last 6 months where you did not have access to dental care?: No Was dental information given to patient?: Patient has dentist HPI HPI Comments History of Present Illness Details This is a 77-year-old female with hypertension, paroxysmal atrial fibrillation, GERD and lymphedema that comes today accompanied with her goods layer Misha for follow-up on her conditions. Blood pressure stable. On chronic anticoagulation for atrial fibrillation. GERD stable with PPIs. She started compression stockings today for her lymphedema. I will hold the diuretics. No chest pain or shortness of breath. Complains of chronic cough associated with some expiratory wheeze and I will give her a short prednisone course. She follows with pulmonology. [facility] Medical History History of CVA (cerebrovascular accident) Afib Acute CVA (cerebrovascular accident) IBS (irritable bowel syndrome) Abdominal hyperesthesia Dyspepsia Osteoarthritis of lumbar spine Scoliosis GERD (gastroesophageal reflux disease) HTN (hypertension) Surgical History Status post ablation of incompetent vein using laser (06/12/22) Hx of hysterectomy H/O oophorectomy H/O bilateral breast reduction surgery H/O section Family History Son HTN (hypertension) Father No problems noted. Mother No problems noted. 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 Jacinto Yee, Lucia Garcia, Rigoberto Love and colleagues, with an educational jovani from [employer]. Review of Systems Const All systems reviewed & are unremarkable except as noted in HPI and below Eyes Reports no additional complaints, Denies change in vision and Denies other visual disturbances Card Denies chest pain at rest, Denies chest pain with activity, Denies edema, Denies irregular heart rhythm, Denies claudication, Denies dyspnea, Denies dyspnea on exertion, Denies orthopnea, Denies paroxysmal nocturnal dyspnea and Denies slow heart rate Resp Denies cough, Denies dyspnea and Denies dyspnea on exertion GI Denies abdominal pain, Denies change in bowel habits, Denies excessive flatus, Denies nausea and Denies vomiting Denies urinary incontinence, Denies urinary hesitancy and Denies urinary urgency Musc Denies abnormal gait, Denies atrophy, Denies deformity and Denies limited range of motion Skin/Breast Denies bleeding lesions, Denies changing lesions and Denies rash Neuro Denies abnormal gait and Denies lack of coordination Physical exam (Primary Care) Vital Signs: Last Vital Signs BP 120/72 07/08/23 16:05 BMI result Body Mass Index 25.9 Tobacco/Smoking Status: Tobacco use Status Tobacco use date assessed 10/29/22 07/08/23 16:12 Patient Tobacco Use Status Never used Tobacco 07/08/23 16:12 e-Cigarette/Vaping Use Never Used 07/08/23 16:12 Thrive Assessment: Date of Thrive Assessment Date Thrive assessed 10/29/22 07/08/23 16:12 Eyes General: appearance normal, both eyes and all related structures Eyelids: Yes eyelids normal Conjunctivae: conjunctivae normal Neck Neck: Yes normal visual inspection and Yes supple Resp Effort & Inspection: normal respiratory effort Auscultation: clear to auscultation bilaterally Cardio Jugular venous distension: no JVD Rate: regular rate Rhythm: regular rhythm Heart sounds: S1 normal heart sound present and S2 normal heart sound present Extrem General: Yes full ROM Assessment and Plan Assessment & Plan (1) GERD (gastroesophageal reflux disease): Code(s): K21.9 - Gastro-esophageal reflux disease without esophagitis Plan: Continue PPIs as needed. (2) Essential hypertension: Code(s): I10 - Essential (primary) hypertension Plan: Continue lisinopril. Blood pressure goal is equal or less than 130/80. (3) PAF (paroxysmal atrial fibrillation): Code(s): I48.0 - Paroxysmal atrial fibrillation Plan: Continue metoprolol. The goal is heart rate control. Continue anticoagulation. (4) Lymphedema: Code(s): I89.0 - Lymphedema, not elsewhere classified Plan: Continue compression stockings. Medications: New prednisone Take 4 tabs for 2 days, then 3 tabs for 2 days, then 2 days for 2 days, then 1 day for 2 days 10 mg PO DIRECTED 8 days 20 tabs 0RF Refilled codeine-guaifenesin 10-100 mg/5 mL 10 mL PO Q4-6H 15 days PRN 473 mL 0RF cold symptoms Discontinued torsemide Discontinued Reason: Patient Completed Course 10 mg PO DAILY 90 days 90 tabs 1RF Coding Level of Care Code Est Pt Level 4 (40519) Diagnoses GERD (gastroesophageal reflux disease) K21.9 Essential hypertension I10 PAF (paroxysmal atrial fibrillation) I48.0 Lymphedema I89.0 Time Spent (min) 24
[2023-07-08 16:05] VITALS: BP 120/72; BMI 25.9
== END 2023-07-08 16:32 | disposition home or self-care (01) ==
PROVIDERS: PCP Internal Medicine; Visit Provider Internal Medicine
DX: K21.9 Gastro-esophageal reflux disease without esophagitis (principal); I10 Essential (primary) hypertension; I48.0 Paroxysmal atrial fibrillation; I89.0 Lymphedema, not elsewhere classified; Z86.73 Personal history of transient ischemic attack (TIA), and cerebral infarction without residual deficits
CPT/HCPCS: 99214

== ENCOUNTER 2023-08-09 10:36 | Observation (INO) | payer OTHER, SELFPAY ==
[2023-08-09] VITALS (9 sets, daily range): BP systolic 118–138; BP diastolic 61–84; PULSE 68–102; RESP 14–20; TEMP 35.9–36.6; O2SAT 96–99; BMI 27.8; BMI 27.7
--- NOTE | ~2023-08-09 | XR_ITS ---
EXAMINATION: XR CHEST CLINICAL INFORMATION: Chest pain COMPARISON: Previous chest x-ray most recent May 2023 TECHNIQUE: Frontal view of the chest was obtained. FINDINGS: The cardiac silhouette is slightly enlarged but stable. Hilar and mediastinal contours are unremarkable. The lungs are clear. No pleural effusion or pneumothorax. Degenerative changes of the spine. XR/XR chest 1V IMPRESSION: No evidence for acute disease in the chest.
--- NOTE | 2023-08-09 10:50 | ECG_ITS ---
Test Reason : CHEST PAIN Blood Pressure : / mmHG Vent. Rate : 104 BPM Atrial Rate : 000 BPM P-R Int : 000 ms QRS Dur : 078 ms QT Int : 368 ms P-R-T Axes : 000 020 020 degrees QTc Int : 483 ms Atrial fibrillation with rapid ventricular response RSR' or QR pattern in V1 suggests right ventricular conduction delay Abnormal ECG When compared with ECG of 18-MAY-2023 15:07, Atrial fibrillation has replaced Sinus rhythm Vent. rate has increased BY 36 BPM Non-specific change in ST segment in Inferior leads Referred By: Bony Silva Electronically Signed By:GREG HOUSTON MD
--- NOTE | 2023-08-09 10:51 | ED.CHESTPAIN ---
HPI - Chest Pain General Chief Complaint: Chest Pain Stated Complaint: high hr 220,cp,sob per ems Time Seen by Provider: 08/09/23 10:49 Source: patient and EMS Mode of arrival: EMS Limitations: no limitations History of Present Illness HPI narrative: This is a 77 years old female with history of atrial fibrillation presented to the emergency department with the palpitations, she was brought here by the economic development director, she was given 20 mg of BT as an in the field the heart rate was about 180. She arrived with a heart rate about 120. Pertinent past history: other (A.Fib) Onset (ago): hour(s) (2) Timing of current episode: episodic Prior episodes: Yes Onset: during rest Pain location: substernal Pain radiation: none Relieving factors: nothing Exacerbating factors: nothing Associated symptoms: nausea Risk Factors Coronary artery disease risk factors: none Related Data Home Medications Medication Instructions Recorded Confirmed aspirin 81 mg tablet,delayed 81 mg PO DAILY 12/05/20 08/09/23 release (Enteric Coated Aspirin) cholecalciferol (vitamin D3) 25 25 mcg PO DAILY 12/05/20 08/09/23 mcg (1,000 unit) capsule fluticasone propionate 50 1 spray intranasal DAILY PRN 08/13/21 08/09/23 mcg/actuation nasal Allergy Symptoms spray,suspension metoprolol succinate 25 mg 25 mg PO DAILY 08/13/21 08/09/23 tablet,extended release 24 hr acetaminophen 650 mg 650 mg PO Q8H PRN pain 08/09/23 08/09/23 tablet,extended release donepezil 10 mg tablet 10 mg PO DAILY 08/09/23 08/09/23 memantine 5 mg tablet 5 mg PO BID 08/09/23 08/09/23 Previous Rx's Medication Instructions Recorded diclofenac sodium 1 % topical gel 4 g topical QID PRN pain (scale 10/13/21 (Voltaren Arthritis Pain) score 7-10) #100 grams compress.stocking,knee,reg,med #2 ea 02/26/22 meclizine 25 mg tablet 25 mg PO BID PRN dizziness #30 tabs 04/10/22 atorvastatin 80 mg tablet 80 mg PO QPM #90 tabs 11/17/22 Ventolin HFA 90 mcg/actuation 2 puff inhalation Q6H PRN 12/24/22 aerosol inhaler (albuterol sulfate) shortness of breath or wheezing 30 days #8 grams Grab bar #2 ea 12/29/22 Shower Chair #1 ea 12/29/22 handheld showerhead #1 ea 12/29/22 incontinence pads #240 ea 12/29/22 toilet frame #1 ea 12/29/22 underpads (Bed Underpads) #100 ea 12/29/22 walker (Ultra-Light Rollator misc) #1 ea 12/29/22 apixaban 5 mg tablet (Eliquis) 5 mg PO BID 30 days #60 tabs 01/21/23 calcium carbonate 500 mg-vitamin 1 tab PO BID 90 days #180 tabs 01/28/23 D3 10 mcg (400 unit) tablet (Calcium 500 With D) lisinopril 40 mg tablet 40 mg PO DAILY #90 tabs 03/17/23 budesonide 0.5 mg/2 mL suspension 0.5 mg (2 mL) inhalation BID 30 06/16/23 for nebulization days #120 mL ipratropium 0.5 mg-albuterol 3 mg 3 ml inhalation BID 30 days #180 mL 06/16/23 (2.5 mg base)/3 mL nebulization soln omeprazole 40 mg capsule,delayed 40 mg PO BID 30 days #60 caps 06/16/23 release Allergies Allergy/AdvReac Type Severity Reaction Status Date / Time oxycodone [From Percocet] Allergy Intermediate Agitated Verified 07/08/23 16:42 Review of Systems Constitutional: Constitutional: Reports no additional constitutional complaints Cardiovascular: Cardiovascular: Reports no additional cardiovascular complaints Respiratory: Respiratory: Reports no additional respiratory complaints Gastrointestinal: Gastrointestinal: Reports no additional gastrointestinal complaints Neurologic: Reports system reviewed and no additional complaints, except as documented [facility] Past Medical History Medical History History of CVA (cerebrovascular accident) Afib Acute CVA (cerebrovascular accident) IBS (irritable bowel syndrome) Abdominal hyperesthesia Dyspepsia Osteoarthritis of lumbar spine Scoliosis GERD (gastroesophageal reflux disease) HTN (hypertension) Surgical History Status post ablation of incompetent vein using laser (06/12/22) Hx of hysterectomy H/O oophorectomy H/O bilateral breast reduction surgery H/O section Family History Family History Son HTN (hypertension) Father No problems noted. Mother No problems noted. Social History Social History Household Members: None Housing: Apartment Are you a primary senior care manager to a significant other at home: No Do you presently have visiting nurse or other home services: Yes (toe laster) Alcohol intake: never Patient Tobacco Use Status: Never used Tobacco e-Cigarette/Vaping Use: Never Used Second Hand Smoke Exposure: No Advance Directives: Yes Advance Directives on File: Yes Advance Directives Date on File: 08/13/21 service: No Current occupational status: disabled Cognitive needs: No Hearing needs: No Vision needs: Yes (Glasses) Physical Exam Vital Signs: Vital Signs: Last Vital Signs Temp 98 F 08/09/23 10:41 Pulse 69 08/09/23 14:58 Resp 19 08/09/23 14:58 BP 122/61 08/09/23 14:23 Pulse Ox 98 08/09/23 14:58 O2 Del Method Room Air 08/09/23 14:23 BMI result Body Mass Index 27.8 Const: General: cooperative Nutritional Appearance: average body habitus Orientation/consciousness: patient oriented x3 Limitations: no limitations HEENT: Head: Yes normal to inspection Ears: hearing grossly normal bilaterally General nose exam: Normal external nose present Face and sinus: Yes normal facial exam Mouth: Normal oral and palatal mucosa present Neck: Neck: Yes normal visual inspection Chest: Chest palpation & inspection: normal inspection of the chest Resp: Effort & Inspection: normal respiratory effort Cardio: Rate: tachycardic Rhythm: abnormal rhythm GI: Inspection: Yes normal to inspection Percussion: Yes normal to percussion Skin: General skin exam: no rashes or lesions noted Lesions: no lesions Rashes: no rashes Neuro: General: patient oriented x3 Course Reevaluation(s) Time: 16:08 Reevaluation #2: better Medications Administered Generic Name Dose Route Start Last Admin Trade Name Freq PRN Reason Stop Dose Admin Diltiazem HCl 125 mg/ Sodium 125 mls @ 0 mls/hr 08/09/23 11:00 08/09/23 11:04 Chloride IVCONT 10 mg/hr .Q0M ABDULKADIR 10 mls/hr Administration Protocol Per Protocol Medical Decision Making Medical Decision Making [facility] Narrative: Patient presented with tachycardia she was given adenosine by the economic development director she was actually in rapid atrial fibrillation she received the IV Cardizem 20 mg followed by a Cardizem drip, she does have slightly troponin elevation which could be related to tachycardia will admit the patient telemetry Differential Diagnosis Differential Diagnoses: The differential diagnosis associated with the presentation includes A.Fib with /SVT/flutter Admission/Observation Consideration of admission/observation: Escalation of care including admission/observation considered Consult Healthcare Provider Management of the patient was discussed with: Hospitalist Lab Data [facility] Lab Attestation statement: I reviewed the patient's lab results. 08/09/23 11:10 08/09/23 11:10 Labs: Lab Results 08/09/23 Range/Units 11:10 WBC 5.3 (4.8-10.8) X10*3/uL RBC 4.43 (4.20-5.50) X10*6/uL Hgb 13.0 (12.0-16.0) g/dl Hct 40.3 (37.0-47.0) % MCV 91.0 (80.0-98.0) fL MCH 29.3 (27.0-33.0) pg MCHC 32.3 (31.0-35.0) g/dl RDW 13.1 (11.0-16.0) % Plt Count 202 (160-400) X10*3/uL MPV 11.8 (9.4-12.3) fL Immature Gran % (Auto) 0.2 (0.0-0.4) % Neut % (Auto) 73.7 H (45-73) % Lymph % (Auto) 17.3 L (20-40) % Garrard % (Auto) 6.5 (2-11) % Eos % (Auto) 2.1 (0-4) % Baso % (Auto) 0.2 (0-2) % Lymph # (Auto) 0.9 L (1.2-4.9) X10*3/uL [place] # (Auto) 0.3 (0.1-1.2) X10*3/uL Eos # (Auto) 0.1 (0.0-0.4) X10*3/uL Baso # (Auto) 0.0 (0.0-0.2) X10*3/uL Abs Immat Gran (auto) 0.01 (0.00-0.03) X10*3/uL Absolute Neuts (auto) 3.9 (2.0-8.3) x10*3/uL Absolute Nucleated RBC 0.000 (0.0-0.012) X10*3/uL Nucleated RBC % (auto) 0.0 (0.0-0.2) /100WBC APTT 35.3 (26.0-36.4) SEC Sodium 142 (135-145) mmol/L Potassium 3.8 (3.3-5.1) mmol/L Chloride 105 (96-108) mmol/L Carbon Dioxide 29 (22-29) mmol/L Anion Gap 12 (12-20) BUN 23 H (9-16) mg/dL Creatinine 1.03 (0.5-1.4) mg/dL Estim Creat Clear Calc 46.3 Estimated GFR 52 Random Glucose 105 (60-115) mg/dL Calcium 9.4 (8.4-10.2) mg/dL Total Bilirubin 0.4 (0.0-1.0) mg/dL AST 68 H (5-31) U/L ALT 61 H (0-31) U/L Alkaline Phosphatase 85 (39-117) U/L Troponin I High Sens 22.9 H D (<3.5-17.0) ng/L Total Protein 7.5 (6.5-8.0) g/dL Albumin 4.2 (3.5-5.0) g/dL Independent Interpretation I performed an independent interpretation of an: EKG (rapid A.Fib), Rhythm Strip and Plain X-Ray Radiology Impression Discussion of test interpretation with radiology: I have reviewed the radiologist's reading. Radiologist Impression: TECHNIQUE: Frontal view of the chest was obtained. FINDINGS: The cardiac silhouette is slightly enlarged but stable. Hilar and mediastinal contours are unremarkable. The lungs are clear. No pleural effusion or pneumothorax. Degenerative changes of the spine. XR/XR chest 1V IMPRESSION: No evidence for acute disease in the chest. Dictated By: Matty Independent Historian Clinical information obtained from an independent historian. History obtained from or confirmed by: EMS External Record Review External record reviewed: Inpatient record Chronic Conditions Patient?s care impacted by: Other (CAD) Critical Care Time Critical Care Time Critical Care Time: Yes Total Critical Care Time: 60 Attestation: IV cardizem and titration Discharge Plan Discharge Clinical Impression: Atrial fibrillation with RVR, Troponin I above reference range Patient Disposition: Admitted As Inpatient
[2023-08-09] MEDS: dilTIAZem HCL 125 MG in 0.9 % Sodium Chloride 100 ML 10 MG IVCONT (11:04)
[2023-08-09 11:13] LABS: MANUAL DIFF FLAG NO
[2023-08-09 11:16] LABS: Basophils Percent Auto 0.2 % (0-2); Eosinophils Absolute Auto 0.1 X10*3/uL (0.0-0.4); Eosinophils Percent Auto 2.1 % (0-4); Hematocrit 40.3 % (37.0-47.0); Imm Gran Abs Auto 0.01 X10*3/uL (0.00-0.03); Imm Gran Pct Auto 0.2 % (0.0-0.4); Lymphocytes Absolute Auto 0.9 X10*3/uL (1.2-4.9); Lymphocytes Percent Auto 17.3 % (20-40); Mean Corpuscular HGB Conc 32.3 g/dl (31.0-35.0); Mean Corpuscular Hemoglobin 29.3 pg (27.0-33.0); Mean Platelet Volume 11.8 fL (9.4-12.3); Monocytes Absolute Auto 0.3 X10*3/uL (0.1-1.2); Monocytes Percent Auto 6.5 % (2-11); Neutrophils Absolute Auto 3.9 x10*3/uL (2.0-8.3); Neutrophils Percent Auto 73.7 % (45-73); Platelet Count 202 X10*3/uL (160-400); Red Blood Count 4.43 X10*6/uL (4.20-5.50); Red Cell Distribution Width 13.1 % (11.0-16.0); White Blood Count 5.3 X10*3/uL (4.8-10.8)
[2023-08-09 11:24] LABS: Partial Thromboplastin Time 35.3 SEC (26.0-36.4)
[2023-08-09 11:34] LABS: Alanine Aminotransferase 61 U/L (0-31); Albumin Level 4.2 g/dL (3.5-5.0); Alkaline Phosphatase 85 U/L (39-117); Anion Gap 12 (12-20); Aspartate Amino Transferase 68 U/L (5-31); Bilirubin Total 0.4 mg/dL (0.0-1.0); Blood Urea Nitrogen 23 mg/dL (9-16); Calcium 9.4 mg/dL (8.4-10.2); Carbon Dioxide 29 mmol/L (22-29); Chloride 105 mmol/L (96-108); Creatinine Clr Calc Pharmacy 46.3; Estimated Glomerular Filt Rate 52; Glucose Random 105 mg/dL (60-115); Potassium 3.8 mmol/L (3.3-5.1); Sodium 142 mmol/L (135-145); Total Protein 7.5 g/dL (6.5-8.0)
--- OUTSIDE RECORDS SUMMARY | 2023-08-09 11:36 | XMS_ITS | Patient Health Record ---
Author Name Unknown Organization Jacinto Perez III, MD Address [address] [place] [address] Care Team Providers Care Boat Carpenter Name Role Phone [facility] Primary Care Provider Marquita vailable Jacinto Perez Unavailable [phone] REASON FOR REFERRAL No Information MEDICATIONS Medication SIG (Take, Route, Frequency, Duration) Notes Start Date End Date Status Lisinopril 5 MG 1 tablet Orally Once a day 10/04/2022 10/04/2022 Active Lidoderm 5 % 1 patch to intact sk in remove after 12 hours Externally Once a day 10/04/2022 10/04/2022 Active Pantoprazole Sodium 40 MG 1 tablet Orall y Once a day 10/04/2022 10/04/2022 Active Diclofenac Sodium 75 MG 1 tablet Orally Once a day 10/04/2022 10/04/2022 Active Adult Aspirin EC Low Strength 81 MG 1 tablet Orally Once a day 10/04/2022 10/04/2022 Active SOCIAL HISTORY Sex Assigned At : Social History Observation Description Sex Assigned At Unknown PROBLEMS Problem Type ICD Code Onset Dates Problem Status W/U Status Risk SNOMED Code Notes Problem Pneumonia (486) Active confirmed Pneumo rubi (036856427) Problem CAD (coronary artery disease) (414.00) Active confirmed Coronary artery disease (97720586) Problem HTN (hypertension) (401.9) Active confirmed Hypertension (87667976) Problem Hyperlipemia (272.4) Active confirmed Hyperlipidaemia (83225739) Problem Migraine (346.90) Active confirmed Migraine (09018423) Problem Breast cyst (610.0) Active confirmed Solitary cyst o f breast (198818262) Problem Neutropenia (288.00) Active confirmed Neutropenia (641971713) PLAN OF TREATMENT Pending Test Test Name Order Date PROFILE, RANDOM (COMPREHENSIVE METABOLIC ) 05/03/2012 PROFILE, RANDOM (COMPREHENSIVE METABOLIC ) 05/27/2012 PROFILE, RANDOM (COMPREHENSIVE METABOLIC ) 08/30/2012 CBC w DIFF 05/27/2012 CBC with MANUAL DIFFERENTIAL 08/30/2012 CBC with MANUAL DIFFERENTIAL 05/03/2012 Insurance Providers Payer Name Payer Address Payer Phone Subscriber Number Group Number Insured Name Patient Relationship to Insured Coverage Start Date Coverage End Date [facility] [address] [place] [address] [id number] HARVEY PHAM Self - patient is the insured MEDICAL (GENERAL) HISTORY Medical History History ICD Code 2010 pneumonia 2000 acute SC 80%LAD, stented CAD hypertension migraine hyperlipidemia breast cyst Surgical History Surgery Date(Month/Year) tubal ligation breast cystectomy hysterectomy
[2023-08-09 11:39] LABS: Troponin-I High Sensitivity 22.9 ng/L (<3.5-17.0)
--- NOTE | 2023-08-09 11:51 | PC.NURSE ---
sr on monitor, no complaints, no cp or sob, nad
--- NOTE | 2023-08-09 12:44 | P.HPHOSP_ITS ---
History of Present Illness Date of Service: 08/09/23 Chief Complaint: Palpitation, chest pain 77 year old female with history of AFIB on eliquis, history of CVA in 2020. She was having chest discomfort, racing heart and called 911. EMS found her in tachycardia with HR around 220 and was given adenosine 6 which no effect and was then given IV cardizem 20 and started on drip and shortly thereafter converted to sinus rythm from Aflutter with RVR. Her troponin I is slightly elevated 22.9 and presently has no chest pain Review of Systems 2 Review of Systems: Gen: no fever Resp: no sob, no chest pain CV: no chest, no MOHAN, no leg edema GI: No n/v, no abd pain Neuro: No confusion Yes all other systems are reviewed and are negative [facility] Medical History History of CVA (cerebrovascular accident) Afib Acute CVA (cerebrovascular accident) IBS (irritable bowel syndrome) Abdominal hyperesthesia Dyspepsia Osteoarthritis of lumbar spine Scoliosis GERD (gastroesophageal reflux disease) HTN (hypertension) Family History Son HTN (hypertension) Father No problems noted. Mother No problems noted. Surgical History Status post ablation of incompetent vein using laser (06/12/22) Hx of hysterectomy H/O oophorectomy H/O bilateral breast reduction surgery H/O section Social History Household Members: Spouse Housing: House Are you a primary director day care center to a significant other at home: No Do you presently have visiting nurse or other home services: No Alcohol intake: never Patient Tobacco Use Status: Never used Tobacco e-Cigarette/Vaping Use: Never Used Second Hand Smoke Exposure: No Use of substances other than those prescribed or required for medical reasons: No Currently Displaying Signs/Symptoms of Drug Intoxication Withdrawal: No Have you been hit, kicked, punched, or otherwise hurt by someone within the past year? If so, by whom?: No Do you feel safe in your current relationship?: Yes Is there a partner from a previous relationship who is making you feel unsafe now?: No Are you made to feel afraid or neglected: No Advance Directives: Yes Advance Directives on File: Yes Advance Directives Date on File: 08/13/21 Do you have thoughts of harming others: None Do you have a plan to hurt others: No Plan Recently lost weight without trying: No Nutrition Risks: No Nutritional Risk Patient : No : No Poor oral hygiene: No service: No Current occupational status: disabled Cognitive needs: No Hearing needs: No Vision needs: Yes (Glasses) Meds Allergies Allergy/AdvReac Type Severity Reaction Status Date / Time oxycodone [From Percocet] Allergy Intermediate Agitated Verified 07/08/23 16:42 Active Medications: Current Medications Diltiazem HCl 125 mg/ Sodium (Chloride) 125 mls @ 0 mls/hr IVCONT .Q0M ABDULKADIR; Protocol Last Admin: 08/09/23 11:04 Dose: 10 mg/hr, 10 mls/hr Home Medications Medication Instructions Recorded Confirmed Last Taken Type aspirin 81 mg tablet,delayed 81 mg PO DAILY 12/05/20 08/09/23 08/09/23 History release (Enteric Coated Aspirin) cholecalciferol (vitamin D3) 25 25 mcg PO DAILY 12/05/20 08/09/23 08/09/23 History mcg (1,000 unit) capsule fluticasone propionate 50 1 spray intranasal DAILY PRN 08/13/21 08/09/23 08/09/23 History mcg/actuation nasal Allergy Symptoms spray,suspension acetaminophen 650 mg 650 mg PO Q8H PRN pain 08/09/23 08/09/23 Unknown History tablet,extended release donepezil 10 mg tablet 10 mg PO DAILY 08/09/23 08/09/23 08/09/23 History memantine 5 mg tablet 5 mg PO BID 08/09/23 08/09/23 08/09/23 History Physical Exam 2 Vital Signs and Narrative: Vital Signs: Last Vital Signs Temp 98 F 08/09/23 10:41 Pulse 88 08/09/23 11:50 Resp 19 08/09/23 11:50 BP 118/64 08/09/23 11:50 Pulse Ox 98 08/09/23 11:50 O2 Del Method Room Air 08/09/23 10:41 BMI result Body Mass Index 27.8 Results Labs 08/09/23 11:10 08/09/23 11:10 Labs: Laboratory Results - last 24 hr 08/09/23 11:10 MCV 91.0 MCH 29.3 MCHC 32.3 RDW 13.1 Plt Count 202 MPV 11.8 Immature Gran % (Auto) 0.2 Neut % (Auto) 73.7 H Lymph % (Auto) 17.3 L Alpine % (Auto) 6.5 Eos % (Auto) 2.1 Baso % (Auto) 0.2 Lymph # (Auto) 0.9 L Alpine # (Auto) 0.3 Eos # (Auto) 0.1 Baso # (Auto) 0.0 Abs Immat Gran (auto) 0.01 Absolute Neuts (auto) 3.9 Absolute Nucleated RBC 0.000 Nucleated RBC % (auto) 0.0 APTT 35.3 Anion Gap 12 Estim Creat Clear Calc 46.3 Estimated GFR 52 Random Glucose 105 Calcium 9.4 Total Bilirubin 0.4 AST 68 H ALT 61 H Alkaline Phosphatase 85 Total Protein 7.5 Albumin 4.2 Assessment and Plan (1) Troponin I above reference range: Status: Acute (2) Atrial fibrillation with RVR: Status: Acute Plan 75 year female with history of cva, afib on eliquis has been having memory issues since last stroke in december and PCP did outpatient MRI for memory work up and she's noted to have a smle stroke as stated above without any new neuro finding. She has been taking eliquis regularly 1/ Chronic AFIB with RVR--back in sinus rythm, resume home meds, continue eliquis 2/ HTN--continue home meds 3/Troponin I elevation, likley from AFIB with RVR , recheck and trending up signficantly then cardiology consult observation Quality Stroke Does the patient have a stroke diagnosis?: No VTE Prior VTE?: No VTE Risk Level:: Medical - moderate - high VTE Device Contraindication: Treatment Not Indicated VTE Drug Contraindication: N/A - Med Ordered
--- NOTE | 2023-08-09 14:20 | PHA.MEDREC ---
Pharmacy Consult ? Medication Reconciliation Pharmacy has completed the medication reconciliation. Patient confirmed medications. Reported taking metoprolol but medication has not been filled at the pharmacy since november 2021. Patient reported she is not taking trazodone anymore. Rosanne Carranza, PharmD
[2023-08-09 16:26] LABS: Troponin-I High Sensitivity 341.3 ng/L (<3.5-17.0)
[2023-08-09] MEDS: Omeprazole 40 MG CAPSULE.DR PO (17:28)
[2023-08-09] MEDS: 0.9 % Sodium Chloride Flush 3 ML SYRINGE IVFLUSH ×2 (17:30→20:19)
[2023-08-09] MEDS: Albuterol/Iprat 2.5/0.5MG 3 ML AMPUL.NEB INHALE (19:26)
[2023-08-09] MEDS: Budesonide 0.5 MG/2 ML AMPUL.NEB INHALE (19:32)
[2023-08-09] MEDS: Memantine HCl 5 MG TABLET PO (20:19)
[2023-08-09] MEDS: Atorvastatin Calcium 80 MG TABLET PO (20:19)
[2023-08-09] MEDS: Calcium + Vitamin D 250 MG TABLET 500 MG PO (20:19)
[2023-08-09] MEDS: Apixaban 5 MG TABLET PO (20:19)
[2023-08-09 20:26] LABS: Troponin-I High Sensitivity 317.9 ng/L (<3.5-17.0)
--- NOTE | 2023-08-09 20:33 | PC.NURSE ---
Lab called with a critical troponin of 317.9 notified.
[2023-08-10] VITALS: BP 117/59; PULSE 66; RESP 20; TEMP 36.1; O2SAT 96
[2023-08-10 03:20] VITALS: BP 122/60; PULSE 69; RESP 20; TEMP 36.2; O2SAT 97
[2023-08-10] MEDS: Omeprazole 40 MG CAPSULE.DR PO (05:29)
[2023-08-10 07:35] VITALS: BP 125/64; PULSE 74; RESP 20; TEMP 37.1; O2SAT 96
[2023-08-10 08:11] VITALS: PULSE 74; RESP 20; O2SAT 98
[2023-08-10] MEDS: Albuterol/Iprat 2.5/0.5MG 3 ML AMPUL.NEB INHALE (08:11)
[2023-08-10] MEDS: Budesonide 0.5 MG/2 ML AMPUL.NEB INHALE (08:11)
[2023-08-10] MEDS: Aspirin Enteric Coated 81 MG TABLET.DR PO (08:50)
[2023-08-10] MEDS: Donepezil HCl 10 MG TABLET PO (08:50)
[2023-08-10] MEDS: Calcium + Vitamin D 250 MG TABLET 500 MG PO (08:50)
[2023-08-10] MEDS: Metoprolol Succinate ER 25 MG TAB.ER.24H PO ×2 (08:50→11:40)
[2023-08-10] MEDS: lisinopriL 40 MG TABLET PO (08:50)
[2023-08-10] MEDS: Apixaban 5 MG TABLET PO (08:50)
[2023-08-10] MEDS: Cholecalciferol (Vitamin D3) 25 MCG TABLET PO (08:50)
[2023-08-10] MEDS: 0.9 % Sodium Chloride Flush 3 ML SYRINGE IVFLUSH (08:52)
[2023-08-10] MEDS: Memantine HCl 5 MG TABLET PO (08:53)
--- NOTE | 2023-08-10 09:52 | MHC.CM.PN ---
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 She is able to walk, slowly, and does not use an assistive device. She has nebulizer machine at home for her breathing treatments. Her will transport her home at DC. CM will follow and assist with DC plan.
[2023-08-10 11:08] VITALS: BP 120/64; PULSE 86; RESP 20; TEMP 36.6; O2SAT 97
--- NOTE | 2023-08-10 11:52 | PM.DS ---
DS: Providers Provider Date of Service: 08/10/23 Date of admission: 08/09/23 13:28 Primary care physician: Yeny Rosenthal MD DS: Diagnosis Discharge Diagnosis (1) Troponin I above reference range: Status: Acute (2) Atrial fibrillation with RVR: Status: Acute DS: Summary Hospital Course Hospital Course: Chief Complaint: Palpitation, chest pain 77 year old female with history of AFIB on eliquis, history of CVA in 2020. She was having chest discomfort, racing heart and called 911. EMS found her in tachycardia with HR around 220 and was given adenosine 6 which no effect and was then given IV cardizem 20 and started on drip and shortly thereafter converted to sinus rythm from Aflutter with RVR. Her troponin I is slightly elevated 22.9 and presently has no chest pain Hospital course: The Patient with known AFib on metoprolol XL 25 mg and Eliquis 5 mg twice daily presented with AFib with RVR. EMS initially thought SVT and gave adenosine without effect. Subsequently, IV cardizem and eventually an IV cardizem drip were administered, and the patient shortly thereafter converted to normal sinus rhythm. The patient was observed overnight without any further episodes of tachycardia. Troponin remained flat, likely due to leak from AFib with RVR. Metoprolol XL was increased to 50 mg for discharge. The patient should follow up with her extrusion line operator, Dr. Martinez, to be considered for further treatment. Final dignoses AFIB with RVR Elevated troponin Time Attestation Discharge coordination time: Greater than 30 minutes Quality: Safe Use of Opioids Does Pt have an Active Cancer Diagnosis on the Problem List?: No Quality: Stroke Does the patient have a stroke diagnosis?: No Physical Exam Vital Signs: Vital Signs: Last Vital Signs Temp 97.9 F 08/10/23 11:08 Pulse 86 08/10/23 11:08 Resp 20 08/10/23 11:08 BP 120/64 08/10/23 11:08 Pulse Ox 97 08/10/23 11:08 O2 Del Method Room Air 08/10/23 11:08 BMI result Body Mass Index 27.7 DS: Data Data Completed and Pending Labs on day of discharge: Laboratory Results - last 24 hr 08/09/23 08/09/23 15:54 19:37 Troponin I High Sens 341.3 H* D 317.9 H* Discharge Plan Discharge Anticipated Discharge Date/Time: 08/10/23 11:18 Patient Disposition: Home, Self-Care Discharge Diagnosis: AFIB with RVR, elevated troponin Referrals: Yeny Bay MD [Primary Care Provider] - 1 Week Discharge Medications: New metoprolol succinate [Toprol XL] 50 mg tablet extended release 24 hr 50 mg PO DAILY Qty: 30 0RF Continued (DME) compress.stocking,knee,reg,med Misc See Rx Instructions .Route Qty: 2 0RF Rx Instructions: As directed atorvastatin 80 mg tablet 80 mg PO QPM Qty: 90 3RF albuterol sulfate [Ventolin HFA] 90 mcg/actuation HFA aerosol inhaler 2 puff inhalation Q6H PRN (Reason: shortness of breath or wheezing) 30 Days Qty: 8 2RF (DME) Shower Chair Misc See Rx Instructions .Route Qty: 1 0RF Rx Instructions: As directed (DME) Grab bar Misc See Rx Instructions .Route Qty: 2 0RF Rx Instructions: As directed (DME) toilet frame See Rx Instructions .Route .MEDSUPPLY Qty: 1 0RF Rx Instructions: As directed (DME) handheld showerhead See Rx Instructions .Route .MEDSUPPLY Qty: 1 0RF Rx Instructions: As directed (DME) Ultra-Light Rollator Misc See Rx Instructions .Route Qty: 1 0RF Rx Instructions: As directed (DME) underpads [Bed Underpads] Pad See Rx Instructions .Route Qty: 100 6RF Rx Instructions: As directed (DME) incontinence pads regular See Rx Instructions .Route .MEDSUPPLY Qty: 240 6RF Rx Instructions: As directed Eliquis 5 mg tablet 5 mg PO BID 30 Days Qty: 60 5RF calcium carbonate-vitamin D3 [Calcium 500 With D] 500 mg-10 mcg (400 unit) tablet 1 tab PO BID 90 Days Qty: 180 2RF fluticasone propionate 50 mcg/actuation spray,suspension 1 spray intranasal DAILY PRN (Reason: Allergy Symptoms) donepezil 10 mg tablet 10 mg PO DAILY memantine 5 mg tablet 5 mg PO BID acetaminophen 650 mg tablet extended release 650 mg PO Q8H PRN (Reason: pain) lisinopril 40 mg tablet 40 mg PO DAILY Qty: 90 3RF diclofenac sodium [Voltaren Arthritis Pain] 1 % gel 4 g topical QID PRN (Reason: pain (scale score 7-10)) Qty: 100 0RF Rx Instructions: apply to shoulders, low back pain meclizine 25 mg tablet 25 mg PO BID PRN (Reason: dizziness) Qty: 30 0RF cholecalciferol (vitamin D3) 25 mcg (1,000 unit) capsule 25 mcg PO DAILY aspirin [Enteric Coated Aspirin] 81 mg tablet,delayed release (DR/EC) 81 mg PO DAILY budesonide 0.5 mg/2 mL suspension for nebulization 0.5 mg inhalation BID 30 Days Qty: 120 6RF ipratropium-albuterol 0.5 mg-3 mg(2.5 mg base)/3 mL solution for nebulization 3 ml inhalation BID 30 Days Qty: 180 6RF omeprazole 40 mg capsule,delayed release(DR/EC) 40 mg PO BID 30 Days Qty: 60 6RF Discontinued metoprolol succinate 25 mg tablet extended release 24 hr 25 mg PO DAILY Discharge Orders: Discharge Order (Routine); Ordered 08/10/23 Ordered By: Kyaw Garcia Diet: Advance to usual diet Activity on Discharge: As tolerated Stand Alone Forms: Patient Portal Discharge page Care Plan Goals: control of atrial fibrilation Health Concerns: atrila fibrilation with rapid ventricular response Plan of Treatment: Toprolol xl has been increased to 50 mg daily from 25 mg daily Your heart doctor will call you for follow up visit Assessment: See above Discharge Date/Time: 08/10/23 12:14
== END 2023-08-10 12:14 | disposition home or self-care (01) ==
LOC: HO.ED 12:15 → HO.EDOVER 13:43 → HO.IMC 14:56
PROVIDERS: Admitting Provider Internal Medicine; Emergency Provider Emergency Medicine; PCP Internal Medicine; Visit Provider Internal Medicine
DX: I48.20 Chronic atrial fibrillation, unspecified (principal); R00.0 Tachycardia, unspecified; R79.89 Other specified abnormal findings of blood chemistry; R00.2 Palpitations; I10 Essential (primary) hypertension; K21.9 Gastro-esophageal reflux disease without esophagitis; M41.9 Scoliosis, unspecified; M47.9 Spondylosis, unspecified; Z86.73 Personal history of transient ischemic attack (TIA), and cerebral infarction without residual deficits; Z79.01 Long term (current) use of anticoagulants; Z79.899 Other long term (current) drug therapy
CPT/HCPCS: 36415; 71045; 80053; 84484; 85025; 85730; 93005; 94640; 96365; 96366; 99222; 99285

== ENCOUNTER → 2023-08-09 13:28 | Outpatient (BNV) | payer OTHER, SELFPAY | PROVIDERS: Admitting Provider Internal Medicine; Emergency Provider Emergency Medicine; PCP Internal Medicine; Visit Provider Internal Medicine | DX: R79.89 Other specified abnormal findings of blood chemistry (principal); I48.91 Unspecified atrial fibrillation | CPT/HCPCS: 99223; 99239 ==

== ENCOUNTER → 2023-08-17 08:21 | Outpatient (REF) | payer OTHER, SELFPAY ==
--- NOTE | ~2023-08-17 | NM_ITS ---
Exercise Myocardial perfusion study Indication: Precordial chest pain to evaluate for myocardial ischemia Technique: The patient was brought in for an exercise perfusion study on 08/17/2023. Patient performed exercise as per Sebastián protocol and was injected 25 mCi of sestamibi was given intravenously one target HR was achieved. Images were obtained using the SPECT gamma camera interlaced with the gating device. Images were obtained in supine position. Resting perfusion study was performed on 08/19/2023. Patient was administered 25 mCi of sestamibi intravenously at rest. Images were then obtained in supine position. Images obtained with and without CT attenuation. Total DLP 89 mGy-cm Images were processed with the software and compared side to side in short axis, horizontal long axis and vertical long axis views. Findings: The stress perfusion study showed non attenuated images show normal uptake of radiotracer in all segments of LV myocardium. Attenuation corrected images show mildly reduced uptake in the septum of the LV myocardium. The gated study shows normal LV systolic function with calculated LVEF of 62%. LV cavity is normal in size. The gated study shows normal systolic wall thickening and contraction of all segments. There is no transient ischemic dilation. Resting study shows no change in perfusion pattern compared to stress perfusion study. Gating at rest reveals normal systolic wall motion with ejection fraction at 64%. The findings are consistent with normal myocardial perfusion. NM/NM cardiolite stress test Impression: 1. Normal myocardial perfusion 2. Gated LVEF is 62% 3. Transient ischemic dilatation not present Stress EKG is negative for ischemia
--- NOTE | 2023-08-17 08:26 | HM_ITS ---
Conclusion: 1. Patient was monitored for total period of 3 days 2. Baseline was normal sinus with average heart of 76 beats per minute 3. Rare ectopy noted 4. No significant pauses noted 5. Patient reported 1 event with no associated symptoms correlated with sinus rhythm MTDD
--- NOTE | 2023-08-17 08:26 | CA_ITS ---
Acquisition Time: 2023-08-17 09:50:25 Total Exercise Time: 00:05:30 Test Indications: AFIB Medications: SEE H Protocol: NICHELLE Max HR: 131 BPM 90% of Pred: 145 BPM Max BP: 158/072 mmHG Max Work Load: 7.0 METS Exercise stress test exercise 5 min 30 sec of nichelle protocol achieving 90% MPHR, with chest pain described as bounding/fast heart rate, without shortness of breath, without arrhythmias, with normotensive response to exercise, without EKG changes. Nuclear images pending, Test reviewed with Dr. Martinez. Referred By: Tylor Martinez Overread By: Sharlene Brunson
--- NOTE | 2023-08-17 08:26 | CA_ITS ---
Transthoracic Echocardiogram Patient (Last, First, Middle): Becca Maldonado, Gender: Female Date of : 1945 Age: 77 Procedure Date: 08/17/2023 Procedure Type: Transthoracic Echocardiogram Location: OP Height: 157.48 cm Weight: 59.42 kg BSA: 1.60 m2 Heart Rate: 63 bpm BP: 120 / 64 mmHg Media Center Assistant: SB Referring MD: Tylor Martinez MD Symptoms: I25.10 - Atherosclerotic heart disease of [place] coronary artery without... Study Quality: Adequate ECG Rhythm: Sinus Conclusions: - The left ventricular systolic function is normal. The calculated ejection fraction is 65% by biplane method. - No obvious valvular pathology seen on this study. Findings Left Ventricle Normal left ventricular cavity size. The left ventricular systolic function is normal. The calculated ejection fraction is 65% by biplane method. There is no evidence of regional wall motion abnormalities. Evidence suggests grade I (mild) diastolic dysfunction. There is mild septal asymmetric hypertrophy. Right Ventricle Normal right ventricular cavity size and systolic function. Atria Both atria are normal in size. Aortic Valve There is a normal trileaflet aortic valve. There is no aortic valve stenosis. There is no aortic valve regurgitation. Mitral Valve The mitral valve appears normal. There is trace mitral valve regurgitation. There is no mitral valve stenosis. Pulmonic Valve The pulmonic valve is likely normal. Tricuspid Valve Normal tricuspid valve structure. There is trace tricuspid valve regurgitation. There is no evidence of pulmonary hypertension. Great Vessels The asc aorta is normal in size. Venous The inferior vena cava is normal in size and collapses greater than 50% with inspiration. Pericardium/Pleural There is no evidence of pericardial effusion. Prior Study Comparison No significant change compared to prior study dated: 12/01/2021. Recommendations, Care & Conclusions No obvious valvular pathology seen on this study. Measurements 2D Linear Measurements IVSd: 1.07 0.6-0.9/0.6-1.0 cm LVIDd: 4.13 3.9-5.3/4.2-5.9 cm LVIDd Index: 2.58 2.4-3.2/2.2-3.1 cm/m2 LVIDs: 2.59 2.0-3.6 cm LVPWd: 0.68 0.7-1.1 cm LA Diam: 2.80 2.7-3.8/3.0-4.0 cm LAIDs Index: 1.75 1.5-2.3 cm/m2 LV Mass: 137.63 67-162/88-224 g LV Mass Index: 86.02 43-95/49-115 g/m2 LVOT Diam: 2.10 3.0+(-)1.3 cm 2D Systolic Function EF 4C: 63.00 >55% EF 2C: 66.10 >55% EF BiP: 65.00 >55% Mitral Valve MV Pk E: 0.72 MV PK A: 0.86 MV Decel Time: 185.00 E/A: 0.80 E'Lateral: 5.98 E'Medial: 5.33 E/E' Med: 13.50 E/E' Lat: 12.00 PHT: 54.00 MVA PHT: 4.07 Decel Hamblen: 3.88 Aortic Valve AoV Pk Jagjit: 0.89 AoV Pk Grad: 3.00 LVOT LVOT Pk Jagjit: 0.70 LVOT Mn Jagjit: 0.47 LVOT VTI: 0.15 LVOT Pk Grad: 2.00 LVOT Mn Grad: 1.00 LVOT Diam: 2.10 LVOT Area: 3.46 Diastolic Function MV Pk E: 0.72 MV Pk A: 0.86 E/A: 0.80 E'Medial: 5.33 E/E' Med: 13.50 E' Laterial: 5.98 E/E' Lat: 12.00 Right Ventricle TAPSE (mm): 25.80 TVS' Jagjit: 11.10 Tricuspid Valve RA Press: 3.00 Great Vessels Aorta Sinus of Valsalva: 3.50 2.0-3.5 cm Ao Asc: 3.70 2.1-3.4 cm Pulmonary Valve PV Pk Jagjit: 0.52 Peak PV Grad: 1.00 Updated in Other Vendor System with Status of Final Tylor Martinez MD electronically signed on 08/18/2023 4:35:46 PM with status of Final
== END ==
LOC: HO.CARD 08:21
PROVIDERS: PCP Internal Medicine; Visit Provider Internal Medicine
DX: R07.2 Precordial pain (principal); I48.0 Paroxysmal atrial fibrillation; I25.10 Atherosclerotic heart disease of native coronary artery without angina pectoris
CPT/HCPCS: 78452; 93017; 93242; 93306; A9500; J0280; J2785

== ENCOUNTER → 2023-08-17 08:26 | Outpatient (BNV) | payer OTHER, SELFPAY | PROVIDERS: PCP Internal Medicine; Visit Provider Nurse Practitioner | DX: I48.0 Paroxysmal atrial fibrillation (principal) | CPT/HCPCS: 78452; 93016; 93018; 93244; 93306 ==

== ENCOUNTER 2023-08-30 09:05 | Outpatient (AMB) | payer OTHER, SELFPAY ==
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
[2023-08-30 09:09] VITALS: BP 162/90; PULSE 77; RESP 16; O2SAT 97; BMI 26.6
== END 2023-08-30 10:10 | disposition home or self-care (01) ==
PROVIDERS: PCP Internal Medicine; Visit Provider Psychiatry & Neurology Neurology
DX: R41.89 Other symptoms and signs involving cognitive functions and awareness (principal); G47.10 Hypersomnia, unspecified; R06.83 Snoring; F32.A Depression, unspecified
CPT/HCPCS: 99204

== ENCOUNTER → 2023-08-30 09:05 | Outpatient (BNVA) | payer OTHER, SELFPAY | PROVIDERS: PCP Internal Medicine; Visit Provider Psychiatry & Neurology Neurology | DX: R41.89 Other symptoms and signs involving cognitive functions and awareness (principal); G47.10 Hypersomnia, unspecified; R06.83 Snoring; F32.A Depression, unspecified; Z86.73 Personal history of transient ischemic attack (TIA), and cerebral infarction without residual deficits | CPT/HCPCS: 99202 ==

== ENCOUNTER 2023-08-31 09:00 | Outpatient (AMB) | payer OTHER, SELFPAY ==
[2023-08-31 09:26] VITALS: BP 134/82; PULSE 72; BMI 26.5
--- NOTE | 2023-08-31 09:26 | MHC.OFFVIS ---
Intake Vital Signs 08/31/23 09:26 Height 5 ft 4 in Weight 154 lb 5.177 oz BMI 26.5 BP 134/82 Blood Pressure Location Lt brachial Position Sitting Pulse 72 Pulse Source Pulse Oximeter Intake Visit Reasons: f/u after testing Advanced Clinical Specialist Required: No Flight Control Tower Operator: Flight Control Tower Operator Present Accompanied by: Significant Other Allergies oxycodone [From Percocet] Allergy (Intermediate, Verified 08/31/23 09:30) Agitated Medication List - Last Reconciled 08/31/23 by FOX Beyer acetaminophen ER 650 mg PO Q8H PRN apixaban (Eliquis) 5 mg PO BID 30 days aspirin (Enteric Coated Aspirin) 81 mg PO DAILY atorvastatin 80 mg PO QPM budesonide 0.5 mg (2 mL) inhalation BID 30 days calcium carbonate-vitamin D3 500 mg-10 mcg (400 unit) (Calcium 500 With D) 1 tab PO BID 90 days cholecalciferol (vitamin D3) 25 mcg PO DAILY compress.stocking,knee,reg,med As directed diclofenac sodium 1% (Voltaren Arthritis Pain) 4 grams topical QID PRN donepezil 10 mg PO DAILY fluticasone propionate 50 mcg/actuation 1 spray intranasal DAILY PRN Grab bar As directed [handheld showerhead As directed] [incontinence pads As directed] ipratropium-albuterol 0.5 mg-3 mg(2.5 mg base)/3 mL 3 mL inhalation BID 30 days lisinopril 40 mg PO DAILY meclizine 25 mg PO BID PRN memantine 5 mg PO BID metoprolol succinate ER (Toprol XL) 50 mg PO DAILY omeprazole 40 mg PO BID 30 days sertraline 1 tabs fro 4 weeks then 2 tabs qd orally daily; Shower Chair As directed [toilet frame As directed] underpads (Bed Underpads) As directed Ventolin HFA 90 mcg/actuation (albuterol sulfate) 2 puffs inhalation Q6H PRN 30 days NS walker (Ultra-Light Rollator misc) As directed HPI f/u after testing HPI Details Becca is a 77-year-old female with past medical history of hypertension, CVA, paroxysmal atrial fibrillation, CAD who was recently admitted to [facility] after having heart palpitations, AFib RVR with elevated troponins. She converted back to sinus rhythm with rate control agents. Her metoprolol dose was increased. Follow-up echocardiogram, nuclear stress test and Holter monitor were completed and she now presents for follow-up. Today she reports that she continues to notice heart palpitations lasting minutes at a time. She has no associated symptoms of lightheadedness, shortness of breath. She does have some shortness of breath with physical activity which is different from her palpitation. No chest discomfort, presyncope, syncope, falls, PND, orthopnea or edema. She has history of CVA and her states she is unsteady on her feet at times. She is mostly sedentary. Her is present, assisting with translation at his request. He states he is her [employer]. She is taking all meds as directed. No bleeding issues reported. [facility] Medical History (Updated 08/31/23 @ 10:46 by FOX Beyer) Depression Hypersomnia Snoring Cognitive impairment History of CVA (cerebrovascular accident) Afib Acute CVA (cerebrovascular accident) IBS (irritable bowel syndrome) Abdominal hyperesthesia Dyspepsia Osteoarthritis of lumbar spine Scoliosis GERD (gastroesophageal reflux disease) HTN (hypertension) Surgical History Status post ablation of incompetent vein using laser (06/12/22) Hx of hysterectomy H/O oophorectomy H/O bilateral breast reduction surgery H/O section Family History Son HTN (hypertension) Father No problems noted. Mother No problems noted. Household Members: Spouse Housing: House Are you a primary animal care attendant to a significant other at home: No Do you presently have visiting nurse or other home services: No Alcohol intake: never Patient Tobacco Use Status: Never used Tobacco e-Cigarette/Vaping Use: Never Used Second Hand Smoke Exposure: No Advance Directives Date on File: 08/13/21 service: No Current occupational status: disabled Cognitive needs: No Hearing needs: No Vision needs: Yes (Glasses) Review of Systems Const All systems reviewed & are unremarkable except as noted in HPI and below ENT Denies dizziness Card Details: heart palpitations lasting minutes Denies chest pain, Denies chest pain at rest, Denies chest pain with activity, Denies rapid heart rate, Denies pedal edema, Denies edema, Denies leg edema, Denies lightheadedness, Denies palpitations, Denies dyspnea, Reports dyspnea on exertion and Denies orthopnea Resp Denies cough, Denies dyspnea and Reports dyspnea on exertion GI Denies hematochezia and Denies change in stool character Musc Details: unsteady on feet at times Reports abnormal gait, Denies limited range of motion, Denies muscle cramps, Denies muscle weakness, Denies numbness, Denies radiating pain into limb, Denies stiffness and Denies tingling Neuro Reports abnormal gait, Denies dizziness, Denies numbness and Denies tingling Endo Denies palpitations Physical Exam Vital Signs: Last Vital Signs Pulse 72 08/31/23 09:26 BP 134/82 08/31/23 09:26 BMI result Body Mass Index 26.5 Const General: cooperative, healthy appearing, comfortable and no acute distress Orientation/consciousness: patient oriented x3 Neck Neck: Yes normal visual inspection Resp Effort & Inspection: normal respiratory effort Auscultation: clear to auscultation bilaterally, no crackles, no rales, no rhonchi and no wheezes Cardio Jugular venous distension: no JVD Rate: regular rate Rhythm: regular rhythm Heart sounds: S1 normal heart sound present, S2 normal heart sound present, no murmurs and no rubs Neuro General: patient oriented x3 Extrem General: Yes normal to inspection and No no pedal edema Psych Appearance: grossly normal Mental Status: mental status grossly normal Speech and movement: Normal speech and movement present Assessment & Plan Assessment & Plan (1) PAF (paroxysmal atrial fibrillation): Code(s): I48.0 - Paroxysmal atrial fibrillation Plan: History of paroxysmal atrial fibrillation. Notes indicate hospitalization at [facility] December 2020 with AFib RVR. She had been following with him to [facility] and recently transferred over to our office. She was seen in the [facility] on 08/09/2023 for heart palpitations. She was initially thought by paramedics to have SVT rate as high as 220 and was given adenosine, rate slowed she was found to be in atrial fibrillation. She was then treated with Cardizem with eventual conversion to sinus rhythm. She was monitored overnight in the hospital without any recurrent episodes. Troponins did rise to as high as 341 which was felt to be demand related in the setting of her AFib RVR. Her metoprolol dose was increased from 25 mg up to 50 mg daily. Outpatient Holter monitor was done on 08/17/2023 for 3 days showing sinus rhythm with average heart rate 76. Echocardiogram was done 08/17/2023 showing EF 65%, no valve abnormalities and no regional wall motion abnormalities. An exercise nuclear stress test was done 08/17/2023 with exercise 5.5 minutes with no EKG changes and normal myocardial perfusion imaging. Today she reports that she is having episodes of heart palpitations lasting minutes. She is likely having episodes of PAF still. Since she had troponin leak with AFib RVR, Will trial further increase of metoprolol dose to 50 mg b.i.d.. If she continues to report heart palpitations then antiarrhythmic may be required. She will continue on Eliquis 5 mg b.i.d. for anticoagulation. She does have a history of CVA in the past. The diagnosis of atrial fibrillation, reasons for PAF, stroke risk with AFib all reviewed with patient and . Cardiology follow-up in 6-8 weeks to reassess, sooner if needed (2) CAD (coronary artery disease): Code(s): I25.10 - Atherosclerotic heart disease of [place] coronary artery without angina pectoris Plan: Notes indicate history of CAD with prior VA, distal LAD disease. She has no reports of anginal sounding symptoms. She did have a troponin leak following AFib RVR with rate 220. This was likely related to demand with high rate. Nuclear stress test and echocardiogram normal as above. She does not need aspirin as she is on Eliquis. Continue high-dose atorvastatin with ideal LDL goal less than 70. Continue metoprolol. (3) Essential hypertension: Code(s): I10 - Essential (primary) hypertension Plan: Normal range at this time. No hypotension documented. Will be increasing metoprolol (4) Hospital discharge follow-up: Code(s): Z09 - Encounter for follow-up examination after completed treatment for conditions other than malignant neoplasm (5) H/O: CVA (cerebrovascular accident): Code(s): Z86.73 - Personal history of transient ischemic attack (TIA), and cerebral infarction without residual deficits Medications: Changed From metoprolol succinate ER (Toprol XL) 50 mg PO DAILY 30 tabs 0RF To metoprolol succinate ER (Toprol XL) 50 mg PO BID 30 days 60 tabs 5RF Coding Level of Care Code Est Pt Level 4 (98231) Diagnoses PAF (paroxysmal atrial fibrillation) I48.0 CAD (coronary artery disease) I25.10 Essential hypertension I10 Hospital discharge follow-up Z09 H/O: CVA (cerebrovascular accident) Z86.73 Time Spent (min) 35
== END 2023-08-31 10:16 | disposition home or self-care (01) ==
PROVIDERS: PCP Internal Medicine; Visit Provider Nurse Practitioner Family
DX: I48.0 Paroxysmal atrial fibrillation (principal); I25.10 Atherosclerotic heart disease of native coronary artery without angina pectoris; I10 Essential (primary) hypertension; Z09 Encounter for follow-up examination after completed treatment for conditions other than malignant neoplasm; Z86.73 Personal history of transient ischemic attack (TIA), and cerebral infarction without residual deficits
CPT/HCPCS: 99214

== ENCOUNTER → 2023-08-31 09:00 | Outpatient (BNVA) | payer OTHER, SELFPAY | PROVIDERS: PCP Internal Medicine; Visit Provider Nurse Practitioner Family | DX: Z09 Encounter for follow-up examination after completed treatment for conditions other than malignant neoplasm (principal); I48.0 Paroxysmal atrial fibrillation; I25.10 Atherosclerotic heart disease of native coronary artery without angina pectoris; I10 Essential (primary) hypertension; Z86.73 Personal history of transient ischemic attack (TIA), and cerebral infarction without residual deficits | CPT/HCPCS: 99212 ==

== ENCOUNTER 2023-09-05 17:24 | Emergency (ER) | payer OTHER, SELFPAY ==
--- NOTE | ~2023-09-05 | XR_ITS ---
EXAMINATION: XR CHEST CLINICAL INFORMATION: Dyspnea on exertion. COMPARISON: 08/09/2023 TECHNIQUE: 2 views of the chest were obtained. FINDINGS: The cardiomediastinal silhouette is stable. There is no focal lung consolidation or pleural effusion. The bony structures and soft tissues are unremarkable. XR/XR chest 2V IMPRESSION: No active cardiopulmonary disease.
[2023-09-05 17:50] VITALS: BP 147/89; PULSE 67; RESP 16; TEMP 36; O2SAT 97; BMI 25.1
--- NOTE | 2023-09-05 17:56 | ED.GENADULT ---
HPI - General Adult General Chief complaint: Weakness Stated complaint: ?ANXIOUS/WEAKNESS Time Seen by Provider: 09/05/23 21:45 History of Present Illness HPI narrative: The patient is a 77-year-old female with history of paroxysmal atrial fibrillation on apixaban. She was hospitalized recently for a small stroke. She also recently had an episode of atrial fibrillation with rapid ventricular response with a troponin leak. She had a nuclear stress test last month on August 17 was unremarkable. Today the patient's brought the patient to the emergency room because she has seemed done well for 2-3 days. She reports abdominal discomfort with watery diarrhea and decreased appetite. She has had nausea but no vomiting. She has had headache. The is concerned that the patient is not eating well. No definite fever. Related Data Home Medications Medication Instructions Recorded Confirmed aspirin 81 mg tablet,delayed 81 mg PO DAILY 12/05/20 08/31/23 release (Enteric Coated Aspirin) cholecalciferol (vitamin D3) 25 25 mcg PO DAILY 12/05/20 08/31/23 mcg (1,000 unit) capsule fluticasone propionate 50 1 spray intranasal DAILY PRN 08/13/21 08/31/23 mcg/actuation nasal Allergy Symptoms spray,suspension acetaminophen 650 mg 650 mg PO Q8H PRN pain 08/09/23 08/31/23 tablet,extended release donepezil 10 mg tablet 10 mg PO DAILY 08/09/23 08/31/23 memantine 5 mg tablet 5 mg PO BID 08/09/23 08/31/23 Previous Rx's Medication Instructions Recorded diclofenac sodium 1 % topical gel 4 g topical QID PRN pain (scale 10/13/21 (Voltaren Arthritis Pain) score 7-10) #100 grams compress.stocking,knee,reg,med #2 ea 02/26/22 meclizine 25 mg tablet 25 mg PO BID PRN dizziness #30 tabs 04/10/22 atorvastatin 80 mg tablet 80 mg PO QPM #90 tabs 11/17/22 Ventolin HFA 90 mcg/actuation 2 puff inhalation Q6H PRN 12/24/22 aerosol inhaler (albuterol sulfate) shortness of breath or wheezing 30 days #8 grams Grab bar #2 ea 12/29/22 Shower Chair #1 ea 12/29/22 handheld showerhead #1 ea 12/29/22 incontinence pads #240 ea 12/29/22 toilet frame #1 ea 12/29/22 underpads (Bed Underpads) #100 ea 12/29/22 walker (Ultra-Light Rollator misc) #1 ea 12/29/22 apixaban 5 mg tablet (Eliquis) 5 mg PO BID 30 days #60 tabs 01/21/23 calcium carbonate 500 mg-vitamin 1 tab PO BID 90 days #180 tabs 01/28/23 D3 10 mcg (400 unit) tablet (Calcium 500 With D) lisinopril 40 mg tablet 40 mg PO DAILY #90 tabs 03/17/23 budesonide 0.5 mg/2 mL suspension 0.5 mg (2 mL) inhalation BID 30 06/16/23 for nebulization days #120 mL ipratropium 0.5 mg-albuterol 3 mg 3 ml inhalation BID 30 days #180 mL 06/16/23 (2.5 mg base)/3 mL nebulization soln omeprazole 40 mg capsule,delayed 40 mg PO BID 30 days #60 caps 06/16/23 release sertraline 25 mg tablet See Rx Instructions PO DAILY #60 08/30/23 tabs metoprolol succinate 50 mg 50 mg PO BID 30 days #60 tabs 08/31/23 tablet,extended release 24 hr (Toprol XL) albuterol sulfate 90 mcg/actuation 2 puff inhalation Q4-6H PRN cough 09/05/23 aerosol inhaler #8.5 grams Allergies Allergy/AdvReac Type Severity Reaction Status Date / Time oxycodone [From Percocet] Allergy Intermediate Agitated Verified 09/05/23 17:50 Review of Systems Review of Systems: Yes all other systems are reviewed and are negative [facility] Past Medical History Medical History (Updated 09/05/23 @ 22:57 by Tra Dillon MD) Depression Hypersomnia Snoring Cognitive impairment History of CVA (cerebrovascular accident) Afib Acute CVA (cerebrovascular accident) IBS (irritable bowel syndrome) Abdominal hyperesthesia Dyspepsia Osteoarthritis of lumbar spine Scoliosis GERD (gastroesophageal reflux disease) HTN (hypertension) Surgical History Status post ablation of incompetent vein using laser (06/12/22) Hx of hysterectomy H/O oophorectomy H/O bilateral breast reduction surgery H/O section Family History Family History Son HTN (hypertension) Father No problems noted. Mother No problems noted. Social History Social History Household Members: Spouse Housing: House Are you a primary special needs child caregiver to a significant other at home: No Do you presently have visiting nurse or other home services: No Alcohol intake: never Patient Tobacco Use Status: Never used Tobacco e-Cigarette/Vaping Use: Never Used Second Hand Smoke Exposure: No Advance Directives: Yes Advance Directives on File: Yes Advance Directives Date on File: 08/13/21 service: No Current occupational status: disabled Cognitive needs: No Hearing needs: No Vision needs: Yes (Glasses) Physical Exam ED Vital Signs: Vital Signs - 24 hr 09/05/23 17:50 09/05/23 21:59 Temperature 96.8 F 97.8 F Pulse Rate 67 92 Respiratory Rate 16 17 Blood Pressure 147/89 H 143/81 H Pulse Oximetry 97 96 Oxygen Delivery Method Room Air Room Air BMI result Body Mass Index 25.1 Const Other: Patient is awake and alert. She does not appear in obvious discomfort or distress. She has a somewhat withdrawn affect. HENMT Other: Face is symmetrical. Mucous membranes moist. Eyes Other: Pupils are round equal, conjunctivae clear, extraocular movements are intact Neck Other: No gym Resp Other: Lungs are clear bilaterally. Cardio Other: The patient has regular rate rhythm without murmur. GI Other: Patient's abdomen is soft and flat. Mild generalized tenderness. No focal tenderness. No rebound. No guarding. Skin Other: Skin is dry and unremarkable. Neuro Other: Patient is awake and alert. She does not say much but when she speaks her speech seems clear. Face is symmetrical. Moves extremities symmetrically. Seems grossly neurologically intact. Extrem Other: No peripheral edema Course Course Course Narrative: RME: 77 yold female with multiple past medical history recently placed on setraline presents to the ED for jitteriness, feeling anxious, and weakness described as fatigue. Negative for any neuro deficits. Patient was seen last week here for AFib in RVR. Will do labs and EKG. Medications Administered Discontinued Medications Generic Name Dose Route Start Last Admin Trade Name Freq PRN Reason Stop Dose Admin Sodium Chloride 1,000 mls @ 999 mls/hr 09/05/23 22:00 09/05/23 22:10 Ns IV 09/05/23 23:00 999 mls/hr .Q1H1M ABDULKADIR Administration Metoclopramide HCl 10 mg 09/05/23 21:58 09/05/23 22:10 Metoclopramide Hcl 10 Mg/2 Ml Vial IVPUSH 09/05/23 21:59 10 mg ONCE ONE Administration Medical Decision Making Medical Decision Making [facility] Narrative: Patient is 77-year-old woman with a history of paroxysmal atrial fibrillation recently had a small stroke. She is anticoagulated on apixaban. She presents with 2-3 days of diarrhea and weakness and lack of appetite. She has also had a cough. She does not appear obviously acutely ill. Her vital signs are unremarkable. Labs show normal white count differential. She has a mildly elevated BUN. Troponin is undetectable. Urinalysis shows trace leukocyte esterase only 6-10 white cells. I felt the patient's chest x-ray was unremarkable. Troponin and proBNP are normal. White count and CRP are normal. I do not have a very high suspicion for any dangerous process. Renal function is slightly worse than previous. She was given a L of IV saline. She was given a dose of metoclopramide. She felt and looked better. I think she may be discharged follow-up with the regular doctor. Her requested a new prescription for albuterol as she has run out of her prescription at home. Lab Data 09/05/23 18:38 09/05/23 18:38 Labs: Lab Results 09/05/23 09/05/23 09/05/23 Range/Units 18:37 18:38 22:06 WBC 6.2 (4.8-10.8) X10*3/uL RBC 4.39 (4.20-5.50) X10*6/uL Hgb 13.0 (12.0-16.0) g/dl Hct 40.0 (37.0-47.0) % MCV 91.1 (80.0-98.0) fL MCH 29.6 (27.0-33.0) pg MCHC 32.5 (31.0-35.0) g/dl RDW 12.8 (11.0-16.0) % Plt Count 210 (160-400) X10*3/uL MPV 12.9 H (9.4-12.3) fL Immature Gran % (Auto) 0.2 (0.0-0.4) % Neut % (Auto) 61.1 (45-73) % Lymph % (Auto) 27.6 (20-40) % [place] % (Auto) 8.5 (2-11) % Eos % (Auto) 2.3 (0-4) % Baso % (Auto) 0.3 (0-2) % Lymph # (Auto) 1.7 (1.2-4.9) X10*3/uL [place] # (Auto) 0.5 (0.1-1.2) X10*3/uL Eos # (Auto) 0.1 (0.0-0.4) X10*3/uL Baso # (Auto) 0.0 (0.0-0.2) X10*3/uL Abs Immat Gran (auto) 0.01 (0.00-0.03) X10*3/uL Absolute Neuts (auto) 3.8 (2.0-8.3) x10*3/uL Absolute Nucleated RBC 0.000 (0.0-0.012) X10*3/uL Nucleated RBC % (auto) 0.0 (0.0-0.2) /100WBC PT 16.0 H D (11.1-13.3) SEC INR 1.3 H (0.9-1.1) APTT 36.7 H (26.0-36.4) SEC Sodium 141 (135-145) mmol/L Potassium 3.7 (3.3-5.1) mmol/L Chloride 102 (96-108) mmol/L Carbon Dioxide 27 (22-29) mmol/L Anion Gap 16 (12-20) BUN 27 H (9-16) mg/dL Creatinine 1.12 (0.5-1.4) mg/dL Estim Creat Clear Calc 42.2 Estimated GFR 47 Random Glucose 88 (60-115) mg/dL Calcium 9.9 (8.4-10.2) mg/dL Magnesium 1.9 (1.6-2.6) mg/dL Total Bilirubin 0.4 (0.0-1.0) mg/dL AST 27 (5-31) U/L ALT 21 (0-31) U/L Alkaline Phosphatase 67 (39-117) U/L Troponin I High Sens < 2.7 D (<3.5-17.0) ng/L C-Reactive Protein < 0.10 (< or = 0.50) mg/dL B-Natriuretic Peptide 28 (<100) pg/mL Total Protein 7.6 (6.5-8.0) g/dL Albumin 4.2 (3.5-5.0) g/dL Urine Color Yellow Urine Appearance Clear Urine pH 5.5 (5.0-9.0) Ur Specific Vass 1.020 (1.005-1.025) Urine Protein Negative (Neg-Trace) mg/dL Urine Glucose (UA) Negative (Negative) mg/dL Urine Ketones Negative (Negative) mg/dL Urine Blood Negative (Negative) Urine Nitrite Negative (Negative) Ur Leukocyte Esterase Trace H (Negative) Urine RBC 0-2 (0-2) /HPF Urine WBC 6-10 H (0-5) /HPF Ur Squamous Epith Cells 0-2 (0-2) /HPF Urine Bacteria None Seen (None Seen) Hyaline Casts 3-5 (0-2) /LPF Urine Opiates Screen Not Detected (Not Detect) Urine Fentanyl Screen Not Detected (Not Detect) Ur Barbiturates Screen Not Detected (Not Detect) Ur Phencyclidine Scrn Not Detected (Not Detect) Ur Amphetamines Screen Not Detected (Not Detect) U Benzodiazepines Scrn Not Detected (Not Detect) Urine Cocaine Screen Not Detected (Not Detect) U Marijuana (THC) Screen Not Detected (Not Detect) Influenza Type A (PCR) NEGATIVE (Negative) Influenza Type B (PCR) NEGATIVE (Negative) RSV RNA Qual (PCR) NEGATIVE (Negative) SARS-CoV-2 RNA (RT-PCR) NEGATIVE (Negative) Independent Interpretation I performed an independent interpretation of an: EKG Interpretation: EKG at 18:33 shows normal sinus rhythm at 66 beats per minute. No acute ischemic changes. Discharge Plan Discharge Clinical Impression: Nausea, Diarrhea, Cough, Weakness, Headache Patient Disposition: Home, Self-Care Additional Instructions: Your testing in the emergency room today is very reassuring. Have sent a new prescription for albuterol to your pharmacy which she may use to see if this helps with your cough. Please contact your regular doctor's office in the morning to make a follow-up appointment to discuss the symptoms further. Return to the emergency room with significantly worse. Prescriptions: New albuterol sulfate 90 mcg/actuation HFA aerosol inhaler 2 puff inhalation Q4-6H PRN (Reason: cough) Qty: 8.5 0RF No Action (DME) compress.stocking,knee,reg,med Misc See Rx Instructions .Route Qty: 2 0RF Rx Instructions: As directed atorvastatin 80 mg tablet 80 mg PO QPM Qty: 90 3RF albuterol sulfate [Ventolin HFA] 90 mcg/actuation HFA aerosol inhaler 2 puff inhalation Q6H PRN (Reason: shortness of breath or wheezing) 30 Days Qty: 8 2RF (DME) Shower Chair Misc See Rx Instructions .Route Qty: 1 0RF Rx Instructions: As directed (DME) Grab bar Misc See Rx Instructions .Route Qty: 2 0RF Rx Instructions: As directed (DME) toilet frame See Rx Instructions .Route .MEDSUPPLY Qty: 1 0RF Rx Instructions: As directed (DME) handheld showerhead See Rx Instructions .Route .MEDSUPPLY Qty: 1 0RF Rx Instructions: As directed (DME) Ultra-Light Rollator Misc See Rx Instructions .Route Qty: 1 0RF Rx Instructions: As directed (DME) underpads [Bed Underpads] Pad See Rx Instructions .Route Qty: 100 6RF Rx Instructions: As directed (DME) incontinence pads regular See Rx Instructions .Route .MEDSUPPLY Qty: 240 6RF Rx Instructions: As directed Eliquis 5 mg tablet 5 mg PO BID 30 Days Qty: 60 5RF calcium carbonate-vitamin D3 [Calcium 500 With D] 500 mg-10 mcg (400 unit) tablet 1 tab PO BID 90 Days Qty: 180 2RF fluticasone propionate 50 mcg/actuation spray,suspension 1 spray intranasal DAILY PRN (Reason: Allergy Symptoms) donepezil 10 mg tablet 10 mg PO DAILY memantine 5 mg tablet 5 mg PO BID acetaminophen 650 mg tablet extended release 650 mg PO Q8H PRN (Reason: pain) lisinopril 40 mg tablet 40 mg PO DAILY Qty: 90 3RF diclofenac sodium [Voltaren Arthritis Pain] 1 % gel 4 g topical QID PRN (Reason: pain (scale score 7-10)) Qty: 100 0RF Rx Instructions: apply to shoulders, low back pain meclizine 25 mg tablet 25 mg PO BID PRN (Reason: dizziness) Qty: 30 0RF cholecalciferol (vitamin D3) 25 mcg (1,000 unit) capsule 25 mcg PO DAILY aspirin [Enteric Coated Aspirin] 81 mg tablet,delayed release (DR/EC) 81 mg PO DAILY metoprolol succinate [Toprol XL] 50 mg tablet extended release 24 hr 50 mg PO BID 30 Days Qty: 60 5RF budesonide 0.5 mg/2 mL suspension for nebulization 0.5 mg inhalation BID 30 Days Qty: 120 6RF ipratropium-albuterol 0.5 mg-3 mg(2.5 mg base)/3 mL solution for nebulization 3 ml inhalation BID 30 Days Qty: 180 6RF omeprazole 40 mg capsule,delayed release(DR/EC) 40 mg PO BID 30 Days Qty: 60 6RF sertraline 25 mg tablet See Rx Instructions PO DAILY Qty: 60 6RF Rx Instructions: 1 tabs fro 4 weeks then 2 tabs qd orally daily; Referrals: Yeny Bay MD [Primary Care Provider] - Interventions: ED Discharge Assessment Last Done: 09/05/23 23:13 Discharge Date/Time: 09/06/23 00:01
[2023-09-05 19:03] LABS: MANUAL DIFF FLAG NO
[2023-09-05 19:04] LABS: Basophils Percent Auto 0.3 % (0-2); Eosinophils Absolute Auto 0.1 X10*3/uL (0.0-0.4); Eosinophils Percent Auto 2.3 % (0-4); Imm Gran Abs Auto 0.01 X10*3/uL (0.00-0.03); Imm Gran Pct Auto 0.2 % (0.0-0.4); Lymphocytes Absolute Auto 1.7 X10*3/uL (1.2-4.9); Lymphocytes Percent Auto 27.6 % (20-40); Mean Corpuscular HGB Conc 32.5 g/dl (31.0-35.0); Mean Corpuscular Hemoglobin 29.6 pg (27.0-33.0); Mean Corpuscular Volume 91.1 fL (80.0-98.0); Mean Platelet Volume 12.9 fL (9.4-12.3); Monocytes Absolute Auto 0.5 X10*3/uL (0.1-1.2); Monocytes Percent Auto 8.5 % (2-11); Neutrophils Absolute Auto 3.8 x10*3/uL (2.0-8.3); Neutrophils Percent Auto 61.1 % (45-73); Platelet Count 210 X10*3/uL (160-400); Red Blood Count 4.39 X10*6/uL (4.20-5.50); Red Cell Distribution Width 12.8 % (11.0-16.0); White Blood Count 6.2 X10*3/uL (4.8-10.8)
[2023-09-05 19:06] LABS: Appearance Urine Clear; Color Urine Yellow; Glucose Urine UA Negative (Negative); Leukocyte Esterase Urine Trace (Negative); Nitrite Urine Negative (Negative); PH 5.5 (5.0-9.0); UMIC TRIGGER UACC YES; Urine Blood Negative (Negative); Urine Ketones Negative (Negative); Urine Protein Negative (Neg-Trace)
[2023-09-05 19:11] LABS: Amphetamine Screen Urine Not Detected (Not Detect); Barbiturates, Urine Not Detected (Not Detect); Benzodiazepines Screen Urine Not Detected (Not Detect); Cannabinoid Screen Urine Not Detected (Not Detect); Cocaine Screen Urine Not Detected (Not Detect); Fentanyl, urine Not Detected (Not Detect); INTERNATIONAL NORM RATIO 1.3 (0.9-1.1); Opiate Screen Urine Not Detected (Not Detect); Phencyclidine Screen Urine Not Detected (Not Detect)
[2023-09-05 19:12] LABS: Bacteria Urine None Seen (None Seen); RBC Urine 0-2 /HPF (0-2); Squamous Epithelial Cell Urine 0-2 /HPF (0-2); UACC Culture Trigger YES
[2023-09-05 19:14] LABS: Partial Thromboplastin Time 36.7 SEC (26.0-36.4)
[2023-09-05 19:21] LABS: Alanine Aminotransferase 21 U/L (0-31); Albumin Level 4.2 g/dL (3.5-5.0); Alkaline Phosphatase 67 U/L (39-117); Anion Gap 16 (12-20); Aspartate Amino Transferase 27 U/L (5-31); Bilirubin Total 0.4 mg/dL (0.0-1.0); Blood Urea Nitrogen 27 mg/dL (9-16); Calcium 9.9 mg/dL (8.4-10.2); Carbon Dioxide 27 mmol/L (22-29); Chloride 102 mmol/L (96-108); Creatinine Clr Calc Pharmacy 42.2; Estimated Glomerular Filt Rate 47; Glucose Random 88 mg/dL (60-115); Magnesium 1.9 mg/dL (1.6-2.6); Potassium 3.7 mmol/L (3.3-5.1); Sodium 141 mmol/L (135-145); Total Protein 7.6 g/dL (6.5-8.0)
[2023-09-05 19:30] LABS: Troponin-I High Sensitivity < 2.7 ng/L (<3.5-17.0)
--- OUTSIDE RECORDS SUMMARY | 2023-09-05 21:20 | XMS_ITS | Patient Health Record ---
Author Name Unknown Organization Jacinto Perez III, MD Address [address] [place] [address] Care Team Providers Care Java Analyst Name Role Phone [facility] Primary Care Provider Marquita vailable Jacinto Perez Unavailable [phone] REASON FOR REFERRAL No Information MEDICATIONS Medication [...] Problem Pneumonia (486) Active confirmed Pneumo rubi (827332126) Problem CAD (coronary artery disease) (414.00) Active confirmed Coronary artery disease (98855798) Problem HTN (hypertension) (401.9) Active confirmed Hypertension (39690457) Problem Hyperlipemia (272.4) Active confirmed Hyperlipidaemia (39013618) Problem Migraine (346.90) Active confirmed Migraine (57086379) Problem Breast cyst (610.0) Active confirmed Solitary cyst o f breast (686672121) Problem Neutropenia (288.00) Active confirmed Neutropenia (004769092) PLAN OF TREATMENT Pending Test Test Name [...] Insured Coverage Start Date Coverage End Date [facility] [address] [place] [address] [id number] HARVEY PHAM Self - patient is the insured MEDICAL (GENERAL) HISTORY Medical History History ICD Code 2010 pneumonia 2000 acute [place] 80%LAD, stented CAD hypertension migraine hyperlipidemia breast cyst Surgical History Surgery Date(Month/Year) tubal ligation breast cystectomy hysterectomy
--- NOTE | 2023-09-05 21:50 | ECG_ITS ---
Test Reason : diziness/weakness Blood Pressure : / mmHG Vent. Rate : 066 BPM Atrial Rate : 066 BPM P-R Int : 192 ms QRS Dur : 086 ms QT Int : 450 ms P-R-T Axes : 058 014 051 degrees QTc Int : 471 ms Normal sinus rhythm Possible Left atrial enlargement Septal infarct (cited on or before 05-SEP-2023) Abnormal ECG When compared with ECG of 09-AUG-2023 10:49, Sinus rhythm has replaced Atrial fibrillation Vent. rate has decreased BY 38 BPM Referred By: Tra Dillon Electronically Signed By:TALISHA COOPER
[2023-09-05 21:59] VITALS: BP 143/81; PULSE 92; RESP 17; TEMP 36.6; O2SAT 96
[2023-09-05] MEDS: 0.9 % Sodium Chloride 1,000 ML 999 ML IV (22:10)
[2023-09-05] MEDS: Metoclopramide HCl 10 MG/2 ML VIAL IVPUSH (22:10)
[2023-09-05 22:12] LABS: C Reactive Protein < 0.10 mg/dL (< or = 0.50)
[2023-09-05 22:24] LABS: B Type Natriuretic Peptide 28 pg/mL (<100)
[2023-09-05 22:48] LABS: Influenza A PCR NEGATIVE (Negative); Influenza B PCR NEGATIVE (Negative); Resp Syncy Virus RNA Qual PCR NEGATIVE (Negative); SARS COV2 PCR INHOUSE NEGATIVE (Negative)
== END 2023-09-06 00:01 | disposition home or self-care (01) ==
PROVIDERS: Physician Assistant; Emergency Provider Emergency Medicine; PCP Internal Medicine
DX: R19.7 Diarrhea, unspecified (principal); R11.0 Nausea; R51.9 Headache, unspecified; R05.9 Cough, unspecified; R10.9 Unspecified abdominal pain; I48.0 Paroxysmal atrial fibrillation; I10 Essential (primary) hypertension; G31.84 Mild cognitive impairment of uncertain or unknown etiology; Z79.01 Long term (current) use of anticoagulants; Z86.73 Personal history of transient ischemic attack (TIA), and cerebral infarction without residual deficits; Z20.822 Contact with and (suspected) exposure to COVID-19; Z20.828 Contact with and (suspected) exposure to other viral communicable diseases; Z79.899 Other long term (current) drug therapy
CPT/HCPCS: 0241U; 36415; 71046; 80053; 80307; 81001; 83735; 83880; 84484; 85025; 85610; 85730; 86140; 87086; 93005; 96374; 99285; J2765

== ENCOUNTER → 2023-09-05 21:50 | Outpatient (BNV) | payer OTHER, SELFPAY | PROVIDERS: Emergency Provider Emergency Medicine; PCP Internal Medicine; Visit Provider Internal Medicine | DX: R94.31 Abnormal electrocardiogram [ECG] [EKG] (principal) | CPT/HCPCS: 93010 ==

== ENCOUNTER 2023-09-14 09:14 | Outpatient (AMB) | payer OTHER, MEDICAID, SELFPAY ==
[2023-09-14 09:25] VITALS: BP 130/82; PULSE 68; BMI 24.5
--- NOTE | 2023-09-14 09:25 | A.OFFVIS_ITS ---
Intake Vital Signs 09/14/23 09:25 Height 5 ft 5 in Weight 147 lb 4.301 oz BMI 24.5 BP 130/82 Blood Pressure Location Lt brachial Position Sitting Pulse 68 Pulse Source Pulse Oximeter Intake Visit Reasons: f/up echo/ mibi/ holter HS Leather Cutter Required: No Allergies oxycodone [From Percocet] Allergy (Intermediate, Verified 09/14/23 09:29) Agitated Medication List - Last Reconciled 09/14/23 by FOX Beyer acetaminophen ER 650 mg PO Q8H PRN albuterol sulfate 90 mcg/actuation 2 puffs inhalation Q4-6H PRN apixaban (Eliquis) 5 mg PO BID 30 days aspirin (Enteric Coated Aspirin) 81 mg PO DAILY atorvastatin 80 mg PO QPM budesonide 0.5 mg (2 mL) inhalation BID 30 days calcium carbonate-vitamin D3 500 mg-10 mcg (400 unit) (Calcium 500 With D) 1 tab PO BID 90 days cholecalciferol (vitamin D3) 25 mcg PO DAILY compress.stocking,knee,reg,med As directed diclofenac sodium 1% (Voltaren Arthritis Pain) 4 grams topical QID PRN donepezil 10 mg PO DAILY fluticasone propionate 50 mcg/actuation 1 spray intranasal DAILY PRN Grab bar As directed [handheld showerhead As directed] [incontinence pads As directed] ipratropium-albuterol 0.5 mg-3 mg(2.5 mg base)/3 mL 3 mL inhalation BID 30 days lisinopril 40 mg PO DAILY meclizine 25 mg PO BID PRN memantine 5 mg PO BID metoprolol succinate ER (Toprol XL) 50 mg PO BID 30 days omeprazole 40 mg PO BID 30 days sertraline 1 tabs fro 4 weeks then 2 tabs qd orally daily; Shower Chair As directed [toilet frame As directed] underpads (Bed Underpads) As directed Ventolin HFA 90 mcg/actuation (albuterol sulfate) 2 puffs inhalation Q6H PRN 30 days NS walker (Ultra-Light Rollator misc) As directed HPI f/up echo/ mibi/ holter HS HPI Details Becca is a 77-year-old female with past medical history of hypertension, CVA, paroxysmal atrial fibrillation, CAD who was recently admitted to [facility] after having heart palpitations, AFib RVR with elevated troponins. She converted back to sinus rhythm with rate control agents. Her metoprolol dose was increased. On last visit she still reported intermittent heart palpitations and her metoprolol was increased to 50 mg b.i.d. Today she presents with her . He does most of the talking. When asked she does report having intermittent heart palpitations however less than previously noted. She has not had any sustained rapid heartbeats requiring ER visit. She was seen in the ER for GI type symptoms recently. EKG at that time was normal rhythm. No chest discomfort at rest or with activity. No shortness of breath, presyncope, syncope, falls. No PND, orthopnea or edema. She has issues with back discomfort radiating into her hips and legs. Her states she has a visit with [facility] next week. No bleeding issues reported. Taking all meds as directed. [facility] Medical History Depression Hypersomnia Snoring Cognitive impairment History of CVA (cerebrovascular accident) Afib Acute CVA (cerebrovascular accident) IBS (irritable bowel syndrome) Abdominal hyperesthesia Dyspepsia Osteoarthritis of lumbar spine Scoliosis GERD (gastroesophageal reflux disease) HTN (hypertension) Surgical History Status post ablation of incompetent vein using laser (06/12/22) Hx of hysterectomy H/O oophorectomy H/O bilateral breast reduction surgery H/O section Family History Son HTN (hypertension) Father No problems noted. Mother No problems noted. Social History Household Members: Spouse Housing: House Are you a primary palliative care physician to a significant other at home: No Do you presently have visiting nurse or other home services: No Alcohol intake: never Patient Tobacco Use Status: Never used Tobacco e-Cigarette/Vaping Use: Never Used Second Hand Smoke Exposure: No Advance Directives Date on File: 08/13/21 service: No Current occupational status: disabled Cognitive needs: No Hearing needs: No Vision needs: Yes (Glasses) Review of Systems Const All systems reviewed & are unremarkable except as noted in HPI and below Card Details: palpitations Denies chest pain, Denies chest pain at rest, Denies chest pain with activity, Denies rapid heart rate, Denies pedal edema, Denies edema, Denies leg edema, Denies lightheadedness, Denies palpitations, Denies dyspnea, Denies dyspnea on exertion and Denies orthopnea Resp Denies cough, Denies dyspnea and Denies dyspnea on exertion GI Denies hematochezia and Denies change in stool character Musc Details: back pain with radiation to hips and legs Reports abnormal gait, Denies limited range of motion, Denies muscle cramps, Denies muscle weakness, Denies numbness, Denies radiating pain into limb, Denies stiffness and Denies tingling Neuro Reports abnormal gait, Denies numbness and Denies tingling Endo Denies palpitations Physical Exam Vital Signs: Last Vital Signs Pulse 68 09/14/23 09:25 BP 130/82 09/14/23 09:25 BMI result Body Mass Index 24.5 Const General: cooperative, healthy appearing, comfortable and no acute distress Orientation/consciousness: patient oriented x3 Neck Neck: Yes normal visual inspection Resp Effort & Inspection: normal respiratory effort Auscultation: clear to auscultation bilaterally, no crackles, no rales, no rhonchi and no wheezes Cardio Jugular venous distension: no JVD Rate: regular rate Rhythm: regular rhythm Heart sounds: S1 normal heart sound present, S2 normal heart sound present, no murmurs and no rubs Neuro General: patient oriented x3 Extrem General: Yes normal to inspection and No no pedal edema Psych Other: flat affect Appearance: grossly normal Mental Status: mental status grossly normal Speech and movement: Normal speech and movement present Assessment & Plan Assessment & Plan (1) PAF (paroxysmal atrial fibrillation): Code(s): I48.0 - Paroxysmal atrial fibrillation Plan: History of paroxysmal atrial fibrillation. Notes indicate hospitalization at [facility] December 2020 with AFib RVR. She had been following with [facility] and recently transferred over to our office. She was seen in the [facility] ER on 08/09/2023 for heart palpitations. She was initially thought by paramedics to have SVT rate as high as 220 and was given adenosine, rate slowed she was found to be in atrial fibrillation. She was then treated with Cardizem with eventual conversion to sinus rhythm. She was monitored overnight in the hospital without any recurrent episodes. Troponins did rise to as high as 341 which was felt to be demand related in the setting of her AFib RVR. Her metoprolol dose was increased from 25 mg up to 50 mg daily. Outpatient Holter monitor was done on 08/17/2023 for 3 days showing sinus rhythm with average heart rate 76. Echocardiogram was done 08/17/2023 showing EF 65%, no valve abnormalities and no regional wall motion abnormalities. An exercise nuclear stress test was done 08/17/2023 with exercise 5.5 minutes with no EKG changes and normal myocardial perfusion imaging. On last visit she reported having heart palpitations that lasted minutes. Due to the history of troponin elevation with her AFib RVR her metoprolol dose was then increased to 50 mg b.i.d. Today she reports having some intermittent palpitations however less than prior. She is somewhat vague and exact amount of palpitation is difficult to ascertain. An EKG was done on 09/05/2023 showing sinus rhythm rate 66. Pulse is regular on examination today. At this time will continue on current metoprolol XL 50 mg b.i.d.. Continue Eliquis 5 mg b.i.d. for anticoagulation. She does have a history of CVA in the past. The diagnosis of atrial fibrillation, reasons for PAF, stroke risk with AFib againl reviewed with patient and . Will check Holter prior to next visit due to vague reports of palpitation. Cardiology follow-up in 3-4 months, sooner if needed. (2) CAD (coronary artery disease): Code(s): I25.10 - Atherosclerotic heart disease of [place] coronary artery without angina pectoris Plan: Notes indicate history of CAD with prior HI, distal LAD disease. She has no reports of anginal sounding symptoms. She did have a troponin leak following AFib RVR with rate 220. This was likely related to demand with high rate. Nuclear stress test and echocardiogram normal as above. She does not need aspirin as she is on Eliquis. Continue high-dose atorvastatin with ideal LDL goal less than 70. Continue metoprolol. (3) Essential hypertension: Code(s): I10 - Essential (primary) hypertension Plan: Normal range at this time. No hypotension documented. Continue metoprolol. (4) H/O: CVA (cerebrovascular accident): Code(s): Z86.73 - Personal history of transient ischemic attack (TIA), and cerebral infarction without residual deficits Plan: History of CVA. Brain MRI from 08/13/2021 shows a small acute infarct in the right cerebral hemisphere, chronic lacunar infarct within the right jose j. History of AFib, on anticoagulation. Plan Time spent with chart review, documentation, interview assessment Orders: Orders ECG 3 day holter monitor 3 Months I48.0 - Paroxysmal atrial fibrillation Coding Level of Care Code Est Pt Level 3 (04835) Diagnoses PAF (paroxysmal atrial fibrillation) I48.0 CAD (coronary artery disease) I25.10 Essential hypertension I10 H/O: CVA (cerebrovascular accident) Z86.73 Time Spent (min) 24
== END 2023-09-14 10:00 | disposition home or self-care (01) ==
PROVIDERS: PCP Internal Medicine; Visit Provider Nurse Practitioner Family
DX: I48.0 Paroxysmal atrial fibrillation (principal); I25.10 Atherosclerotic heart disease of native coronary artery without angina pectoris; I10 Essential (primary) hypertension; Z86.73 Personal history of transient ischemic attack (TIA), and cerebral infarction without residual deficits
CPT/HCPCS: 99213

== ENCOUNTER → 2023-09-14 09:14 | Outpatient (BNVA) | payer OTHER, MEDICAID, SELFPAY | PROVIDERS: PCP Internal Medicine; Visit Provider Nurse Practitioner Family | DX: I48.0 Paroxysmal atrial fibrillation (principal); I25.10 Atherosclerotic heart disease of native coronary artery without angina pectoris; I10 Essential (primary) hypertension; Z86.73 Personal history of transient ischemic attack (TIA), and cerebral infarction without residual deficits | CPT/HCPCS: 99212 ==

== ENCOUNTER 2023-10-13 08:43 | Outpatient (AMB) | payer OTHER, SELFPAY ==
[2023-10-13 09:12] VITALS: BP 114/77; PULSE 71; O2SAT 97; BMI 25.7
--- NOTE | 2023-10-13 09:12 | MHC.OFFVIS ---
Intake Vital Signs 10/13/23 09:12 Height 5 ft 5 in Weight 154 lb 5.177 oz BMI 25.7 BP 114/77 Blood Pressure Location Rt brachial Position Sitting Pulse 71 Pulse Source Doppler Pulse Oximetry (%) 97 Oxygen Delivery Method Room Air Intake Visit Reasons: Asthma Mowing Machine Operator Required: Yes Mowing Machine Operator Name: Sheeba Cole Caal Allergies oxycodone [From Percocet] Allergy (Intermediate, Verified 10/13/23 09:17) Agitated HPI Asthma HPI Details 77-year-old lady, lifetime nonsmoker, with underlying history hypertension, AFib previously on Multaq, now followed for asthma and pulmonary component to dyspnea. She has been using nebulized budesonide and duo nebs with good control of his symptoms. She continues on PPI, but now with worsening reflux symptoms. [facility] Medical History Depression Hypersomnia Snoring Cognitive impairment History of CVA (cerebrovascular accident) Afib Acute CVA (cerebrovascular accident) IBS (irritable bowel syndrome) Abdominal hyperesthesia Dyspepsia Osteoarthritis of lumbar spine Scoliosis GERD (gastroesophageal reflux disease) HTN (hypertension) Surgical History Status post ablation of incompetent vein using laser (06/12/22) Hx of hysterectomy H/O oophorectomy H/O bilateral breast reduction surgery H/O section Family History Son HTN (hypertension) Father No problems noted. Mother No problems noted. Social History Household Members: Spouse Housing: House Are you a primary urgent care physician assistant to a significant other at home: No Do you presently have visiting nurse or other home services: No Alcohol intake: never Patient Tobacco Use Status: Never used Tobacco e-Cigarette/Vaping Use: Never Used Second Hand Smoke Exposure: No Advance Directives Date on File: 08/13/21 service: No Current occupational status: disabled Cognitive needs: No Hearing needs: No Vision needs: Yes (Glasses) Review of Systems Const Denies daytime sleepiness, Denies excessive sweating, Denies fatigue, Denies fever(s), Denies lethargy, Denies malaise, Denies night sweats, Denies snoring and Denies weight loss Eyes Denies blurry vision and Denies itchy eyes ENT Denies nasal congestion, Denies post nasal drip, Denies sinus pain, Denies sinus pressure and Denies other ( Thrush) Card Denies chest pain, Denies pedal edema, Denies dyspnea, Denies orthopnea and Denies paroxysmal nocturnal dyspnea Resp Denies cough, Denies hemoptysis, Denies excessive phlegm production, Denies dyspnea, Denies snoring and Denies wheezing GI Denies abdominal pain and Reports heartburn Musc Denies myalgias, Denies arthralgias and Denies joint swelling Skin/Breast Denies rash Neuro Denies memory loss and Denies seizure-like activity Psych Denies abnormal sleep pattern, Denies anxiety and Denies memory loss Endo Denies excessive sweating, Denies fatigue and Denies heat intolerance Eric/Lymph Denies easy bruising Aller/Immun Denies itchy eyes, Denies seasonal rhinorrhea and Denies wheezing Physical Exam Vital Signs: Last Vital Signs Pulse 71 10/13/23 09:12 BP 114/77 10/13/23 09:12 Pulse Ox 97 10/13/23 09:12 Oxygen Delivery Method Room Air 10/13/23 09:12 BMI result Body Mass Index 25.7 Const General: no acute distress and alert Nutritional Appearance: not obese Orientation/consciousness: Other orientation findings ( oriented) HEENT Head: Yes atraumatic Eyes General: appearance normal, both eyes and all related structures Sclerae: sclerae normal EOM: EOMs intact bilaterally Neck Neck: Yes supple Lymphatic: no lymphadenopathy noted Resp Effort & Inspection: normal respiratory effort and no use of accessory muscles Auscultation: clear to auscultation bilaterally Cardio Rate: regular rate Rhythm: regular rhythm Heart sounds: no gallops, no murmurs and no rubs Skin General skin exam: other ( warm) Extrem General: No clubbing, No cyanosis and No edema Assessment & Plan Assessment & Plan (1) Asthma: Code(s): J45.909 - Unspecified asthma, uncomplicated Plan: Well controlled on nebulized budesonide, albuterol MDI, and duo nebs. Continue current regimen. (2) GERD (gastroesophageal reflux disease): Code(s): K21.9 - Gastro-esophageal reflux disease without esophagitis Plan: Continues on PPI now with worsening symptoms. Patient has been advised to discuss worsening symptoms with her clinical recruiter Coding Level of Care Code Est Pt Level 4 (99316) Diagnoses Asthma J45.909 GERD (gastroesophageal reflux disease) K21.9
== END 2023-10-13 09:27 | disposition home or self-care (01) ==
PROVIDERS: PCP Internal Medicine; Visit Provider Internal Medicine Pulmonary Disease
DX: J45.909 Unspecified asthma, uncomplicated (principal); K21.9 Gastro-esophageal reflux disease without esophagitis
CPT/HCPCS: 99214

== ENCOUNTER → 2023-10-13 08:43 | Outpatient (BNVA) | payer OTHER, SELFPAY | PROVIDERS: PCP Internal Medicine; Visit Provider Internal Medicine Pulmonary Disease | DX: J45.909 Unspecified asthma, uncomplicated (principal); K21.9 Gastro-esophageal reflux disease without esophagitis | CPT/HCPCS: 99212 ==

== ENCOUNTER 2023-11-10 14:43 | Outpatient (REF) | payer OTHER, SELFPAY ==
--- NOTE | ~2023-11-10 | XR_ITS ---
EXAMINATION: XR KNEE, LEFT CLINICAL INFORMATION: Pain in left knee COMPARISON: None available. TECHNIQUE: Four views of the left knee. FINDINGS: No fracture or joint effusion. Alignment is anatomic. There is mild chondrocalcinosis in the medial and lateral aspect of knee joint. There is minimal patellar spurring. Joint spaces are maintained. No abnormal soft tissue calcification. XR/XR knee LT 3V IMPRESSION: Mild degenerative changes with chondrocalcinosis/CPPD arthropathy.
== END 2023-11-10 14:44 | disposition home or self-care (01) ==
LOC: HO.XRAY 14:43
PROVIDERS: PCP Internal Medicine; Visit Provider Nurse Practitioner Women's Health
DX: M25.562 Pain in left knee (principal)
CPT/HCPCS: 73562

== ENCOUNTER 2023-11-16 19:24 | Outpatient (REF) | payer OTHER, SELFPAY ==
--- NOTE | ~2023-11-16 | MR_ITS ---
MR LUMBAR SPINE WITHOUT CONTRAST CLINICAL INFORMATION: Low back pain. COMPARISON: Lumbar spine MRI 04/09/2022. TECHNIQUE: MRI of the lumbar spine was obtained using routine sequences without contrast. FINDINGS: There are 5 nonrib-bearing lumbar-type vertebral bodies. There is a significant leftward convex scoliotic curvature of the lumbar spine. There is grade 1 retrolisthesis of L2 on L3 and there is grade 1 anterolisthesis of L4 on L5 and L5 on S1. There are multilevel endplate osteophytes. There are Modic type I endplate signal changes at L4-L5. There is bone marrow edema within the left L4-L5 facets that is most likely degenerative/inflammatory. There is no additional bone marrow edema. There are no acute fractures. Vertebral body heights are maintained. There is disc desiccation at the L2-L3, L3-L4, L4-L5, and L5-S1 levels. Conus terminates at the L1 level. Extrarenal pelvises bilaterally. Sigmoid diverticulosis. L1-L2: Disc contour is normal. There is mild bilateral facet arthropathy. There is no central canal stenosis and there is no foraminal stenosis. L2-L3: Grade 1 retrolisthesis. There is a diffuse annular disc bulge that is eccentric to the right side and there is moderate bilateral facet arthropathy and ligamentum flavum giving. Findings in concert result in similar right subarticular zone stenosis with mass effect on the traversing right L3 nerve root as well as moderate right-sided foraminal stenosis. L3-L4: Diffuse annular disc bulge and severe bilateral facet arthropathy and ligamentum flavum thickening. Able mild central canal stenosis and moderate bilateral foraminal stenosis. L4-L5: Grade 1 degenerative anterolisthesis. There is severe bilateral facet arthropathy and ligamentum flavum thickening. There is a new large 1.1 cm synovial cyst projecting medially from the left facet joint. Diffuse annular disc bulge with a superimposed left lateral disc protrusion. These findings in concert result in significantly worsening severe central canal stenosis and similar severe left and moderate right foraminal stenosis with compression of the exiting left L4 nerve root. L5-S1: Slight grade 1 anterolisthesis. Left greater than right lateral disc osteophyte protrusions resulting in severe left and mild right foraminal stenosis with compression of the foraminal and extra foraminal segments of the exiting left L5 nerve root. MR/MR lumbar spine wo con IMPRESSION: - At L5-S1, there are left greater than right lateral disc osteophyte protrusions resulting in similar severe left and mild right foraminal stenosis with compression of the foraminal and extra foraminal segments of the exiting left L5 nerve root. - At L4-L5, grade 1 degenerative anterolisthesis, advanced multifactorial degenerative changes, and a new 1.1 cm left-sided synovial cyst result in significantly worsening severe central canal stenosis and similar severe left and moderate right foraminal stenosis with compression of the exiting left L4 nerve root. There is bone marrow edema within the left L4-L5 facets that is most likely degenerative/inflammatory. - At L3-L4, multifactorial degenerative changes result in mild central canal stenosis and moderate bilateral foraminal stenosis. - At L2-L3, grade 1 retrolisthesis and multifactorial degenerative changes result in similar right subarticular zone stenosis with mass effect on the traversing right L3 nerve root as well as moderate right-sided foraminal stenosis. - Significant leftward convex lumbar scoliosis.
== END 2023-11-16 19:25 | disposition home or self-care (01) ==
LOC: HO.MRI 19:24
PROVIDERS: PCP Internal Medicine; Visit Provider Nurse Practitioner Women's Health
DX: M54.16 Radiculopathy, lumbar region (principal)
CPT/HCPCS: 72148

== ENCOUNTER → 2023-12-14 11:18 | Outpatient (REF) | payer OTHER, SELFPAY ==
--- NOTE | 2023-12-14 11:22 | HM_ITS ---
Conclusion: 1. Patient was monitored for total period of 2 days and 12 hours 2. Baseline was normal sinus rhythm with average heart of 75 beats per minute 3. No significant pauses or arrhythmias noted 4. No patient reported events MTDD
== END ==
LOC: HO.CARD 11:18
PROVIDERS: PCP Internal Medicine; Visit Provider Nurse Practitioner Family
DX: I48.0 Paroxysmal atrial fibrillation (principal)
CPT/HCPCS: 93242

== ENCOUNTER → 2023-12-14 11:22 | Outpatient (BNV) | payer OTHER, SELFPAY | PROVIDERS: PCP Internal Medicine; Visit Provider Internal Medicine Cardiovascular Disease | DX: I48.0 Paroxysmal atrial fibrillation (principal) | CPT/HCPCS: 93244 ==

== ENCOUNTER 2023-12-17 14:26 | Outpatient (REF) | payer OTHER, SELFPAY ==
--- NOTE | ~2023-12-17 | MR_ITS ---
EXAMINATION: MR PELVIS WITHOUT CONTRAST CLINICAL INFORMATION: Pelvic and perineal pain. COMPARISON: CT abdomen and pelvis dated 11/30/2021. MRI lumbar spine dated 04/09/2022. TECHNIQUE: Multiplanar MR imaging was obtained through the pelvis on a 1.5 Vika magnet without intravenous contrast. FINDINGS: BONES AND ARTICULAR CARTILAGE: Mild osteoarthritis is present in the SI joints, right greater than left, with cortical irregularity, marginal osteophytes, effusions, and subchondral cystic change. More moderate osteoarthritis the pubic symphysis. Mild osteoarthritis is also evident in both hips with probable focal anterosuperior acetabular labral tears. No fractures, stress reactions, avascular necrosis, or aggressive osseous lesions. There is marked degenerative spondylosis in the lower lumbar spine with grade 1 anterolisthesis of L4 on L5 and L5 on S1. Central canal and neural foraminal stenoses are better seen on prior dedicated MRIs of the lumbar spine. MUSCLES AND TENDONS: Mild gluteus minimus and gluteus medius tendinosis. No tears. [id number] hamstring tendinosis, left side greater than right. No significant muscle atrophy. Piriformis muscles are symmetric. JOINT FLUID AND BURSAE: No effusions or bursitis. NERVES: Imaged lumbar plexus, lumbosacral trunks, and sacral plexus appear symmetric without focal extraspinal sites of impingement. Multiple sites of neural foraminal and central canal stenoses are better assessed on the previous MRI of the lumbar spine. Sciatic, obturator, and femoral nerves are unremarkable. No appreciable abnormalities at the pudendal nerves bilaterally. INTRAPELVIC SOFT TISSUES: Diverticulosis is present in the sigmoid colon. No adenopathy. No acute intrapelvic abnormalities. MR/MR pelvis wo con IMPRESSION: 1. Mild osteoarthritis in the hips, right greater than left. 2. [id number] hamstring tendinosis, left side greater than right. 3. Marked degenerative spondylosis in the lower lumbar spine with grade 1 anterolisthesis of L4 on L5 and L5 on S1. Sites of neural foraminal and central canal encroachment are better assessed on the previous MRIs of the lumbar spine. No appreciable sites of more peripheral nerve impingement are identified. 4. Mild gluteus minimus and gluteus medius tendinosis. No tears. 5. Mild osteoarthritis in the sacroiliac joints, right greater than left.
== END 2023-12-17 14:27 | disposition home or self-care (01) ==
LOC: HO.MRI 14:26
PROVIDERS: PCP Internal Medicine; Visit Provider Nurse Practitioner Women's Health
DX: R10.2 Pelvic and perineal pain (principal)
CPT/HCPCS: 72195

== ENCOUNTER 2023-12-22 09:21 | Outpatient (AMB) | payer OTHER, MEDICAID, SELFPAY ==
--- NOTE | 2023-12-22 09:32 | MHC.PC.OV ---
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 Required: No Accompanied by: Self / Same As Patient Allergies oxycodone [From Percocet] Allergy (Intermediate, Verified 12/22/23 09:48) Agitated Medication List - Last Reconciled 12/22/23 by Yeny Rosenthal MD acetaminophen ER 650 mg PO Q8H PRN albuterol sulfate 90 mcg/actuation 2 puffs inhalation Q4-6H PRN apixaban (Eliquis) 5 mg PO BID aspirin (Enteric Coated Aspirin) 81 mg PO DAILY atorvastatin 80 mg PO BEDTIME budesonide 0.5 mg (2 mL) inhalation BID 30 days calcium carbonate-vitamin D3 500 mg-10 mcg (400 unit) (Calcium 500 With D) 1 tab PO BID 90 days cholecalciferol (vitamin D3) 25 mcg PO DAILY compress.stocking,knee,reg,med As directed diclofenac sodium 1% (Voltaren Arthritis Pain) 4 grams topical QID PRN donepezil 10 mg PO DAILY fluticasone propionate 50 mcg/actuation 1 spray intranasal DAILY PRN gabapentin 300 mg PO BEDTIME Grab bar As directed [handheld showerhead As directed] [incontinence pads As directed] ipratropium-albuterol 0.5 mg-3 mg(2.5 mg base)/3 mL 3 mL inhalation BID 30 days lisinopril 40 mg PO DAILY meclizine 25 mg PO BID PRN memantine 5 mg PO BID metoprolol succinate ER (Toprol XL) 50 mg PO BID 30 days omeprazole 40 mg PO BID sertraline 1 tabs fro 4 weeks then 2 tabs qd orally daily; Shower Chair As directed [toilet frame As directed] underpads (Bed Underpads) As directed Ventolin HFA 90 mcg/actuation (albuterol sulfate) 2 puffs inhalation Q6H PRN 30 days NS walker (Ultra-Light Rollator misc) As directed Tobacco use date assessed: 10/20/23 Fall risk assessment: No Falls in past year Last assessed Fall Risk: 12/22/23 Dental Screening Dental Screen Date: 12/22/23 Did you have a dental visit in the last 12 months?: No Did you have a dental problem in the last 6 months where you did not have access to dental care?: No Was dental information given to patient?: Yes HPI HPI Comments History of Present Illness Details This is a 78-year-old female with atrial fibrillation and history of cerebellar infarct that comes for her physical exam today alone. I did a mini-mental status exam on her which she scored 28/30. She follows with neurology for her cognitive impairment. She declines any depression. Able to walk with no assistive device today but admits that occasionally lose her balance. Last mammogram was March 2023. Last colonoscopy was 2018. No need for Pap smear due to age and history of hysterectomy. On chronic anticoagulation for atrial fibrillation and this is follow by cardiology. On aspirin for secondary prophylaxis of her stroke. [facility] Medical History Depression Hypersomnia Snoring Cognitive impairment History of CVA (cerebrovascular accident) Afib Acute CVA (cerebrovascular accident) IBS (irritable bowel syndrome) Abdominal hyperesthesia Dyspepsia Osteoarthritis of lumbar spine Scoliosis GERD (gastroesophageal reflux disease) HTN (hypertension) Surgical History Status post ablation of incompetent vein using laser (06/12/22) Hx of hysterectomy H/O oophorectomy H/O bilateral breast reduction surgery H/O section Family History Son HTN (hypertension) Father No problems noted. Mother No problems noted. Social History Household Members: Spouse Housing: House Are you a primary director long term care to a significant other at home: No Do you presently have visiting nurse or other home services: No Alcohol intake: never Patient Tobacco Use Status: Never used Tobacco e-Cigarette/Vaping Use: Never Used Second Hand Smoke Exposure: No Advance Directives Date on File: 08/13/21 service: No Current occupational status: disabled Cognitive needs: No Hearing needs: No Vision needs: Yes (Glasses) Questionnaire Thrive Questionnaire Date Thrive assessed: 12/22/23 I am a: Patient What is your living situation today?: I have a steady place to live Within the past 12 months, did the food you bought not last and you didn't have the money to get more?: Never true Within the past 12 months, did you worry whether your food would run out before you got money to buy more?: Never true Do you have trouble paying for medicines?: No Do you have trouble getting transportation to medical appointments?: No Do you have trouble paying your heating and electricity bill?: No Do you have trouble taking care of your child, family member or friend?: No Do you have trouble with day-to-day activities such as bathing, preparing meals, shopping, managing finances, etc.?: No Are you currently unemployed and looking for a job?: No Are you interested in more education?: No Please select the resources that you would like help with: None Currently or been in a relationship where the following occur: no concerns reported THRIVE Score: 0 AUDIT C Alcohol Use Questionnaire (AUDIT-C) 1. How often do you have a drink containing alcohol?: Never Total Score: 0 SINCERE-7 AMB Questionnaire SINCERE-7 Date SINCERE - 7 assessed: 12/22/23 Feeling nervous, anxious, or on edge: 0 = Not at all Not being able to stop or control worryin = Not at all Worrying too much about different things: 0 = Not at all Trouble relaxin = Not at all Being so restless that it is hard to sit still: 0 = Not at all Becoming easily annoyed or irritable: 0 = Not at all Feeling afraid as if something awful might happen: 0 = Not at all Total SINCERE-7 score (0-4 normal; 5-9 mild; 10-14 moderate; 15-21 severe): 0 Source: Developed by Drs. Jacinto Yee, Lucia Garcia, Rigoberto Love and colleagues, with an educational jovani from [employer]. SINCERE-7 Assessment Billing SINCERE-7 Assessment Tool: SINCERE-7 Assessment 98377 Review of Systems Const All systems reviewed & are unremarkable except as noted in HPI and below Eyes Reports no additional complaints, Denies change in vision and Denies other visual disturbances Card Denies chest pain at rest, Denies chest pain with activity, Denies edema, Denies irregular heart rhythm, Denies claudication, Denies dyspnea, Denies dyspnea on exertion, Denies orthopnea, Denies paroxysmal nocturnal dyspnea and Denies slow heart rate Resp Denies cough, Denies dyspnea and Denies dyspnea on exertion GI Denies abdominal pain, Denies change in bowel habits, Denies excessive flatus, Denies nausea and Denies vomiting Denies urinary incontinence, Denies urinary hesitancy and Denies urinary urgency Physical exam (Primary Care) Vital Signs: Last Vital Signs BP 126/80 12/22/23 09:34 BMI result Body Mass Index 24.6 Tobacco/Smoking Status: Tobacco use Status Tobacco use date assessed 10/20/23 12/22/23 09:40 Patient Tobacco Use Status Never used Tobacco 12/22/23 09:40 e-Cigarette/Vaping Use Never Used 12/22/23 09:40 Thrive Assessment: Date of Thrive Assessment Date Thrive assessed 12/22/23 12/22/23 09:40 Currently or been in a relationship where the following occur: no concerns reported Eyes General: appearance normal, both eyes and all related structures Eyelids: Yes eyelids normal Conjunctivae: conjunctivae normal Neck Neck: Yes normal visual inspection and Yes supple Resp Effort & Inspection: normal respiratory effort Auscultation: clear to auscultation bilaterally Cardio Jugular venous distension: no JVD Rate: regular rate Rhythm: regular rhythm Heart sounds: S1 normal heart sound present and S2 normal heart sound present GI Inspection: Yes normal to inspection Palpation (GI): Soft to palpation Neuro Cognition (Neuro): normal cognition (score 28/30 on her mini mental exam today) Extrem General: Yes full ROM Assessment and Plan Assessment & Plan (1) Physical exam: Code(s): Z00.00 - Encounter for general adult medical examination without abnormal findings Plan: Repeat in a year. (2) Cerebellar infarct: Code(s): I63.9 - Cerebral infarction, unspecified Plan: Continue aspirin for secondary prophylaxis. (3) Afib: Code(s): I48.91 - Unspecified atrial fibrillation Qualifiers: Atrial fibrillation type: paroxysmal Qualified Code(s): I48.0 - Paroxysmal atrial fibrillation Plan: Continue Eliquis. The goal is heart rate control. Orders: Orders Vitamin D 25-OH Total Today E55.9 - Vitamin D deficiency, unspecified Lipid Panel Today E78.5 - Hyperlipidemia, unspecified Comprehensive [place]. Panel Fast Today Z00.00 - Encounter for general adult medical examination without abnormal findings Coding Level of Care Code Est Pt Prev Care >65y(91199) Diagnoses Physical exam Z00.00 Cerebellar infarct I63.9 Paroxysmal atrial fibrillation I48.0 Atrial fibrillation type: paroxysmal Additional Codes SINCERE-7 Assessment Billing - SINCERE-7 Assessment Tool: SINCERE-7 Assessment [id number] ([id number]) Time Spent (min) 35
[2023-12-22 09:34] VITALS: BP 126/80; BMI 24.6
== END 2023-12-22 10:18 | disposition home or self-care (01) ==
PROVIDERS: Visit Provider Internal Medicine
DX: Z00.00 Encounter for general adult medical examination without abnormal findings (principal); I63.9 Cerebral infarction, unspecified; I48.0 Paroxysmal atrial fibrillation
CPT/HCPCS: 99397

== ENCOUNTER 2023-12-27 11:46 | Outpatient (REF) | payer OTHER, SELFPAY ==
[2023-12-27 11:56] LABS: MANUAL DIFF FLAG NO
[2023-12-27 12:28] LABS: Basophils Percent Auto 0.4 % (0-2); Eosinophils Absolute Auto 0.2 X10*3/uL (0.0-0.4); Eosinophils Percent Auto 3.3 % (0-4); Hematocrit 39.2 % (37.0-47.0); Hemoglobin 12.8 g/dl (12.0-16.0); Imm Gran Abs Auto 0.01 X10*3/uL (0.00-0.03); Imm Gran Pct Auto 0.2 % (0.0-0.4); Lymphocytes Absolute Auto 1.2 X10*3/uL (1.2-4.9); Lymphocytes Percent Auto 22.6 % (20-40); Mean Corpuscular HGB Conc 32.7 g/dl (31.0-35.0); Mean Corpuscular Hemoglobin 29.3 pg (27.0-33.0); Mean Corpuscular Volume 89.7 fL (80.0-98.0); Monocytes Absolute Auto 0.5 X10*3/uL (0.1-1.2); Monocytes Percent Auto 8.8 % (2-11); Neutrophils Absolute Auto 3.5 x10*3/uL (2.0-8.3); Neutrophils Percent Auto 64.7 % (45-73); Platelet Count 217 X10*3/uL (160-400); Red Blood Count 4.37 X10*6/uL (4.20-5.50); White Blood Count 5.5 X10*3/uL (4.8-10.8)
[2023-12-27 13:26] LABS: Alanine Aminotransferase 20 U/L (0-31); Alkaline Phosphatase 56 U/L (39-117); Anion Gap 10 (12-20); Aspartate Amino Transferase 25 U/L (5-31); Bilirubin Total 0.4 mg/dL (0.0-1.0); Blood Urea Nitrogen 18 mg/dL (9-16); Calcium 9.5 mg/dL (8.4-10.2); Carbon Dioxide 29 mmol/L (22-29); Chloride 106 mmol/L (96-108); Cholesterol 179 mg/dL (<200); Estimated Glomerular Filt Rate > 60; Glucose Fasting 83 mg/dL (60-99); HDL Cholesterol 51 mg/dL (>40); LDL Cholesterol Calculated 119 mg/dL (<100); Potassium 3.7 mmol/L (3.3-5.1); Sodium 141 mmol/L (135-145); Total Protein 7.1 g/dL (6.5-8.0); Triglycerides 46 mg/dL (<150)
[2023-12-27 13:44] LABS: Thyroid Stimulating Hormone 1.85 uIU/mL (0.32-4.0)
[2023-12-27 13:53] LABS: Folate 14.3 ng/mL (> or = 4.0); Vitamin B12 731 pg/mL (200-900)
== END 2023-12-27 11:47 | disposition home or self-care (01) ==
LOC: HO.LAB 11:46
PROVIDERS: PCP Internal Medicine; Visit Provider Internal Medicine
DX: Z00.00 Encounter for general adult medical examination without abnormal findings (principal); E78.5 Hyperlipidemia, unspecified; E55.9 Vitamin D deficiency, unspecified; E53.8 Deficiency of other specified B group vitamins; I48.0 Paroxysmal atrial fibrillation; G44.52 New daily persistent headache (NDPH)
CPT/HCPCS: 36415; 80053; 80061; 82306; 82607; 82746; 84443; 85025

== ENCOUNTER 2024-01-11 09:10 | Outpatient (AMB) | payer OTHER, MEDICAID, SELFPAY ==
--- NOTE | 2024-01-11 09:49 | MHC.OFFVIS ---
Intake Vital Signs 01/11/24 09:50 Height 5 ft 5 in Weight 146 lb 13.246 oz BMI 24.4 BP 130/82 Blood Pressure Location Lt brachial Position Sitting Pulse 75 Pulse Source Pulse Oximeter Intake Visit Reasons: 4 mth /fup Utility Operator Required: Yes Utility Operator Language: Jacker Name: lauren farley [id number] Allergies oxycodone [From Percocet] Allergy (Intermediate, Verified 01/11/24 09:52) Agitated Medication List - Last Reconciled 01/11/24 by FXO Beyer acetaminophen ER 650 mg PO Q8H PRN albuterol sulfate 90 mcg/actuation 2 puffs inhalation Q4-6H PRN apixaban (Eliquis) 5 mg PO BID aspirin (Enteric Coated Aspirin) 81 mg PO DAILY atorvastatin 80 mg PO BEDTIME budesonide 0.5 mg (2 mL) inhalation BID 30 days calcium carbonate-vitamin D3 500 mg-10 mcg (400 unit) (Calcium 500 With D) 1 tab PO BID 90 days cholecalciferol (vitamin D3) 25 mcg PO DAILY compress.stocking,knee,reg,med As directed diclofenac sodium 1% (Voltaren Arthritis Pain) 4 grams topical QID PRN donepezil 10 mg PO DAILY fluticasone propionate 50 mcg/actuation 1 spray intranasal DAILY PRN Grab bar As directed [handheld showerhead As directed] [incontinence pads As directed] ipratropium-albuterol 0.5 mg-3 mg(2.5 mg base)/3 mL 3 mL inhalation BID 30 days lisinopril 40 mg PO DAILY meclizine 25 mg PO BID PRN memantine 5 mg PO BID metoprolol succinate ER (Toprol XL) 50 mg PO BID 30 days omeprazole 40 mg PO BID sertraline 1 tabs fro 4 weeks then 2 tabs qd orally daily; Shower Chair As directed [toilet frame As directed] torsemide 10 mg PO DAILY underpads (Bed Underpads) As directed Ventolin HFA 90 mcg/actuation (albuterol sulfate) 2 puffs inhalation Q6H PRN 30 days NS walker (Ultra-Light Rollator misc) As directed HPI 4 mth /fup HPI Details Becca is a 78-year-old female with past medical history of hypertension, CVA, paroxysmal atrial fibrillation, CAD who was admitted to [facility] 08/2023 after having heart palpitations, AFib RVR with elevated troponins. She converted back to sinus rhythm with rate control agents. Her metoprolol dose was increased. On follow-up visit she continued to report palpitations and her metoprolol was increased to 50 mg b.i.d. a repeat Holter monitor was done and she now presents for follow-up. Today she reports she has been doing well with no concerning symptoms. She has not had any recurrent heart palpitations. No elevated heart rates that cause her concern. No chest discomfort, shortness of breath, lightheadedness, presyncope, syncope, PND, orthopnea or edema. Takes all meds as directed. No bleeding issues reported. Certified certified court interpreter used. ON LICENSE OF [facility] Medical History Depression Hypersomnia Snoring Cognitive impairment History of CVA (cerebrovascular accident) Afib Acute CVA (cerebrovascular accident) IBS (irritable bowel syndrome) Abdominal hyperesthesia Dyspepsia Osteoarthritis of lumbar spine Scoliosis GERD (gastroesophageal reflux disease) HTN (hypertension) Surgical History Status post ablation of incompetent vein using laser (06/12/22) Hx of hysterectomy H/O oophorectomy H/O bilateral breast reduction surgery H/O section Family History Son HTN (hypertension) Father No problems noted. Mother No problems noted. Social History Household Members: Spouse Housing: House Are you a primary pet care technician to a significant other at home: No Do you presently have visiting nurse or other home services: No Alcohol intake: never Patient Tobacco Use Status: Never used Tobacco e-Cigarette/Vaping Use: Never Used Second Hand Smoke Exposure: No Advance Directives Date on File: 08/13/21 service: No Current occupational status: disabled Cognitive needs: No Hearing needs: No Vision needs: Yes (Glasses) Review of Systems Const All systems reviewed & are unremarkable except as noted in HPI and below ENT Denies dizziness Card Denies chest pain, Denies chest pain at rest, Denies chest pain with activity, Denies rapid heart rate, Denies pedal edema, Denies edema, Denies leg edema, Denies lightheadedness, Denies palpitations, Denies dyspnea, Denies dyspnea on exertion and Denies orthopnea Resp Denies cough, Denies dyspnea and Denies dyspnea on exertion GI Denies hematochezia and Denies change in stool character Musc Denies abnormal gait, Denies limited range of motion, Denies muscle cramps, Denies muscle weakness, Denies numbness, Denies radiating pain into limb, Denies stiffness and Denies tingling Neuro Denies abnormal gait, Denies dizziness, Denies numbness and Denies tingling Endo Denies palpitations Physical Exam Vital Signs: Last Vital Signs Pulse 75 01/11/24 09:50 BP 130/82 01/11/24 09:50 BMI result Body Mass Index 24.4 Const General: cooperative, healthy appearing, comfortable and no acute distress Orientation/consciousness: patient oriented x3 Neck Neck: Yes normal visual inspection Resp Effort & Inspection: normal respiratory effort Auscultation: clear to auscultation bilaterally, no crackles, no rales, no rhonchi and no wheezes Cardio Jugular venous distension: no JVD Rate: regular rate Rhythm: regular rhythm Heart sounds: S1 normal heart sound present, S2 normal heart sound present, no murmurs and no rubs Neuro General: patient oriented x3 Extrem General: Yes normal to inspection and No no pedal edema Psych Other: flat affect Appearance: grossly normal Mental Status: mental status grossly normal Speech and movement: Normal speech and movement present Assessment & Plan Assessment & Plan (1) PAF (paroxysmal atrial fibrillation): Code(s): I48.0 - Paroxysmal atrial fibrillation Plan: History of paroxysmal atrial fibrillation. Notes indicate hospitalization at [facility] December 2020 with AFib RVR. She had been following with [facility] and recently transferred over to our office. She was seen in the [facility] ER on 08/09/2023 for heart palpitations. She was initially thought by paramedics to have SVT rate as high as 220 and was given adenosine, rate slowed she was found to be in atrial fibrillation. She was then treated with Cardizem with eventual conversion to sinus rhythm. She was monitored overnight in the hospital without any recurrent episodes. Troponins did rise to as high as 341 which was felt to be demand related in the setting of her AFib RVR. Her metoprolol dose was increased from 25 mg up to 50 mg daily. Outpatient Holter monitor was done on 08/17/2023 for 3 days showing sinus rhythm with average heart rate 76. Echocardiogram was done 08/17/2023 showing EF 65%, no valve abnormalities and no regional wall motion abnormalities. An exercise nuclear stress test was done 08/17/2023 with exercise 5.5 minutes with no EKG changes and normal myocardial perfusion imaging. On follow up visit she reported having heart palpitations that lasted minutes. Her metoprolol dose was then increased to 50 mg b.i.d. Holter monitor done on 12/14/2023 for 2.5 days shows sinus rhythm with average heart rate 75, no AFib. Today she denies any recurrent heart palpitations. She has been compliant with her meds. Pulse is very regular on examination, no concern for AFib at this time. Will continue metoprolol for heart rate control. Will continue Eliquis for anticoagulation. She does have a history of CVA in the past. Labs done 12/27/2023 showed creatinine 0.81. Reviewed the diagnosis of atrial fibrillation, stroke risk with AFib. Cardiology follow-up in 6 months, sooner if needed. (2) CAD (coronary artery disease): Code(s): I25.10 - Atherosclerotic heart disease of [place] coronary artery without angina pectoris Plan: Notes indicate history of CAD with prior TN, distal LAD disease. She has no reports of anginal sounding symptoms. She did have a troponin leak following AFib RVR with rate 220. This was likely related to demand with high rate. Nuclear stress test and echocardiogram normal as above. She does not need aspirin as she is on Eliquis. Continue high-dose atorvastatin with ideal LDL goal less than 70. Continue metoprolol. Labs done 12/27/2023 showed LDL 119. This may not have been fasting as it was done at 11:55. Will have her recheck fasting lipids. (3) Essential hypertension: Code(s): I10 - Essential (primary) hypertension Plan: Normal range at this time. Continue metoprolol. (4) H/O: CVA (cerebrovascular accident): Code(s): Z86.73 - Personal history of transient ischemic attack (TIA), and cerebral infarction without residual deficits Plan: History of CVA. Brain MRI from 08/13/2021 shows a small acute infarct in the right cerebral hemisphere, chronic lacunar infarct within the right jose j. History of AFib, on anticoagulation. Plan Time spent with chart review, documentation, interview assessment Orders: Orders Lipid Panel Today I25.10 - Atherosclerotic heart disease of [place] coronary artery without angina pectoris Coding Level of Care Code Est Pt Level 3 (53035) Diagnoses PAF (paroxysmal atrial fibrillation) I48.0 CAD (coronary artery disease) I25.10 Essential hypertension I10 H/O: CVA (cerebrovascular accident) Z86.73 Time Spent (min) 24
[2024-01-11 09:50] VITALS: BP 130/82; PULSE 75; BMI 24.4
== END 2024-01-11 10:14 | disposition home or self-care (01) ==
PROVIDERS: PCP Internal Medicine; Visit Provider Nurse Practitioner Family
DX: I48.0 Paroxysmal atrial fibrillation (principal); I25.10 Atherosclerotic heart disease of native coronary artery without angina pectoris; I10 Essential (primary) hypertension; Z86.73 Personal history of transient ischemic attack (TIA), and cerebral infarction without residual deficits
CPT/HCPCS: 99213

== ENCOUNTER → 2024-01-11 09:10 | Outpatient (BNVA) | payer OTHER, MEDICAID, SELFPAY | PROVIDERS: PCP Internal Medicine; Visit Provider Nurse Practitioner Family | DX: I48.0 Paroxysmal atrial fibrillation (principal); I25.10 Atherosclerotic heart disease of native coronary artery without angina pectoris; I10 Essential (primary) hypertension; Z86.73 Personal history of transient ischemic attack (TIA), and cerebral infarction without residual deficits | CPT/HCPCS: 99212 ==

== ENCOUNTER 2024-01-16 14:11 | Emergency (ER) | payer OTHER, MEDICAID, SELFPAY ==
--- NOTE | ~2024-01-16 | XR_ITS ---
EXAMINATION: XR CHEST CLINICAL INFORMATION: Cough and shortness of breath COMPARISON: Chest x-ray September 2023 and chest CTA April 2022 TECHNIQUE: 2 views of the chest were obtained. FINDINGS: The cardiac and mediastinal contours are stable. There is question bronchial wall thickening at the right lung base. There is linear scarring or subsegmental atelectasis in the left superior hilar region that appears unchanged. Lungs are otherwise clear. No pleural effusion or pneumothorax. Degenerative changes of the spine and mild scoliosis. Mild pectus deformity of the chest. XR/XR chest 2V IMPRESSION: Question bronchial wall thickening at the right lung base.
[2024-01-16 14:16] VITALS: BP 152/73; PULSE 80; RESP 16; TEMP 36.3; O2SAT 96; BMI 25.2
--- NOTE | 2024-01-16 14:17 | ED_ITS ---
HPI - SOB/Dyspnea General Chief Complaint: Dyspnea Stated Complaint: asthma,sob Time Seen by Provider: 01/16/24 17:05 Source: patient and RN notes reviewed Mode of arrival: ambulatory Limitations: no limitations History of Present Illness HPI Narrative: This is a 78-year-old female, with a history of asthma, and paroxysmal atrial fibrillation on apixaban, who presents emergency department with cough, congestion, shortness of breath x1 week. Patient denies any fevers, chills, palpitations, chest pain. She denies any sick contacts. She has been using her nebulizers at home which has provided her with slight relief. MD elicited complaint: shortness of breath and cough Timing: constant Severity: mild Exacerbating factors: nothing Relieving factors: nothing Associated symptoms: cough, wheezing and sputum production Treatment prior to arrival: none Related Data Home Medications ?Medication ?Instructions ?Recorded ?Confirmed aspirin 81 mg tablet,delayed 81 mg PO DAILY 12/05/20 01/11/24 release (Enteric Coated Aspirin) cholecalciferol (vitamin D3) 25 25 mcg PO DAILY 12/05/20 01/11/24 mcg (1,000 unit) capsule fluticasone propionate 50 1 spray intranasal DAILY PRN 08/13/21 01/11/24 mcg/actuation nasal Allergy Symptoms spray,suspension acetaminophen 650 mg 650 mg PO Q8H PRN pain 08/09/23 01/11/24 tablet,extended release donepezil 10 mg tablet 10 mg PO DAILY 08/09/23 01/11/24 memantine 5 mg tablet 5 mg PO BID 08/09/23 01/11/24 torsemide 10 mg tablet 10 mg PO DAILY 01/11/24 01/11/24 Previous Rx's ?Medication ?Instructions ?Recorded diclofenac sodium 1 % topical gel 4 g topical QID PRN pain (scale 10/13/21 (Voltaren Arthritis Pain) score 7-10) #100 grams compress.stocking,knee,reg,med #2 ea 02/26/22 meclizine 25 mg tablet 25 mg PO BID PRN dizziness #30 tabs 04/10/22 Ventolin HFA 90 mcg/actuation 2 puff inhalation Q6H PRN 12/24/22 aerosol inhaler (albuterol sulfate) shortness of breath or wheezing 30 days #8 grams Grab bar #2 ea 12/29/22 Shower Chair #1 ea 12/29/22 handheld showerhead #1 ea 12/29/22 incontinence pads #240 ea 12/29/22 toilet frame #1 ea 12/29/22 underpads (Bed Underpads) #100 ea 12/29/22 walker (Ultra-Light Rollator misc) #1 ea 12/29/22 lisinopril 40 mg tablet 40 mg PO DAILY #90 tabs 03/17/23 budesonide 0.5 mg/2 mL suspension 0.5 mg (2 mL) inhalation BID 30 06/16/23 for nebulization days #120 mL sertraline 25 mg tablet See Rx Instructions PO DAILY #60 08/30/23 tabs metoprolol succinate 50 mg 50 mg PO BID 30 days #60 tabs 08/31/23 tablet,extended release 24 hr (Toprol XL) albuterol sulfate 90 mcg/actuation 2 puff inhalation Q4-6H PRN cough 09/05/23 aerosol inhaler #8.5 grams apixaban 5 mg tablet (Eliquis) 5 mg PO BID #60 tabs 10/06/23 calcium carbonate 500 mg-vitamin 1 tab PO BID 90 days #180 tabs 10/24/23 D3 10 mcg (400 unit) tablet (Calcium 500 With D) omeprazole 40 mg capsule,delayed 40 mg PO BID #180 caps 12/17/23 release ipratropium 0.5 mg-albuterol 3 mg 3 ml inhalation BID 30 days #180 mL 12/30/23 (2.5 mg base)/3 mL nebulization soln atorvastatin 40 mg tablet 40 mg PO BEDTIME #90 tabs 01/14/24 azithromycin 250 mg tablet 250 mg PO DAILY 4 days #4 tabs 01/16/24 prednisone 20 mg tablet 20 mg PO DAILY 4 days #4 tabs 01/16/24 Allergies Allergy/AdvReac Type Severity Reaction Status Date / Time oxycodone [From Percocet] Allergy Intermediate Agitated Verified 01/16/24 14:18 Review of Systems Review of Systems: Yes all other systems are reviewed and are negative Constitutional: Constitutional: Reports as per [facility] Past Medical History Medical History Depression Hypersomnia Snoring Cognitive impairment History of CVA (cerebrovascular accident) Afib Acute CVA (cerebrovascular accident) IBS (irritable bowel syndrome) Abdominal hyperesthesia Dyspepsia Osteoarthritis of lumbar spine Scoliosis GERD (gastroesophageal reflux disease) HTN (hypertension) Surgical History Status post ablation of incompetent vein using laser (06/12/22) Hx of hysterectomy H/O oophorectomy H/O bilateral breast reduction surgery H/O section Family History Family History Son HTN (hypertension) Father No problems noted. Mother No problems noted. Social History Social History Household Members: Spouse Housing: House Are you a primary career technology teacher to a significant other at home: No Do you presently have visiting nurse or other home services: No Alcohol intake: never Patient Tobacco Use Status: Never used Tobacco e-Cigarette/Vaping Use: Never Used Second Hand Smoke Exposure: No Advance Directives: Yes Advance Directives on File: Yes Advance Directives Date on File: 08/13/21 service: No Current occupational status: disabled Cognitive needs: No Hearing needs: No Vision needs: Yes (Glasses) Physical Exam Vital Signs: Vital Signs: Last Vital Signs Temp 97.8 F 01/16/24 19:11 Pulse 100 01/16/24 19:11 Resp 16 01/16/24 19:11 BP 102/81 01/16/24 19:11 Pulse Ox 98 01/16/24 19:11 O2 Del Method Room Air 01/16/24 19:11 BMI result Body Mass Index 25.2 Const: General: cooperative, comfortable and no acute distress Orientation/consciousness: patient oriented x3 Limitations: no limitations HEENT: Head: Yes normal to inspection, Yes normocephalic and Yes atraumatic Ears: hearing grossly normal bilaterally General nose exam: Normal external nose present Face and sinus: Yes normal facial exam Mouth: Normal oral and palatal mucosa present, oropharynx normal and moist mucous membranes Throat: Yes posterior oropharynx normal Eyes: General: appearance normal, both eyes and all related structures Eyelids: Yes eyelids normal Conjunctivae: conjunctivae normal Sclerae: sclerae normal Pupils: Equal, round and reactive pupils present EOM: EOMs intact bilaterally Neck: Neck: Yes normal visual inspection, Yes full ROM and Yes no lymphadeno feliz Lymphatic: no lymphadenopathy noted Chest: Chest palpation & inspection: normal inspection of the chest Resp: Other: Inspiratory and expiratory wheeze noted at the right upper and lower lung portillo Effort & Inspection: normal respiratory effort and able to speak in complete sentences Auscultation: clear to auscultation bilaterally, no crackles, no rales, no rhonchi and no wheezes Cardio: Rate: regular rate Rhythm: regular rhythm Heart sounds: S1 normal heart sound present and S2 normal heart sound present GI: Inspection: Yes normal to inspection Skin: General skin exam: no rashes or lesions noted Trauma: no lacerations or abrasions Wounds: no wounds Neuro: General: patient oriented x3 and moves all extremities Cranial nerves: Yes Equal, round and reactive pupils present Extrem: General: Yes normal to inspection Right upper extremity: normal to inspection Left upper extremity: normal to inspection Right lower extremity: normal to inspection Left lower extremity: normal to inspection Course Course Course Narrative: Patient is a 78-year-old female who presents emergency department reporting 1 week of shortness of breath, worse over past 4 days, worse with ambulating. associated productive cough. Has some relief with home inhalers and nebulizers but symptoms soon return. Denies chest pain, fevers, chills, known sick contacts. Plan: Viral panel, CXR Reevaluation(s) Reevaluation #1: Patient with questionable bronchial wall thickening at the right lung base. Given patient has been sick for approximately 1 week, will treat with course of antibiotics steroids and nebulizers. Patient given return precautions. She understands and agrees with plan. Vital signs stable. Patient feels comfortable with discharge, and she is feeling much better after receiving updraft. Patient stable for discharge Medications Administered Discontinued Medications Generic Name Dose Route Start Last Admin Trade Name Freq PRN Reason Stop Dose Admin Azithromycin 500 mg 01/16/24 18:05 01/16/24 18:16 Azithromycin 500 Mg Tablet PO 01/16/24 18:06 500 mg ONCE ONE Administration Albuterol Sulfate 2.5 mg/ 0 mg 01/16/24 18:15 01/16/24 18:19 Albuterol/Ipratropium 3 ml INHALE 01/16/24 18:16 1 dose ONCE ONE Administration Prednisone 40 mg 01/16/24 18:05 04/14/24 18:16 Prednisone 20 Mg Tablet PO 01/16/24 18:06 40 mg ONCE ONE Administration Medical Decision Making Medical Decision Making [facility] Narrative: This is a 78-year-old female, with a history of asthma, and atrial fibrillation on apixaban, who presents emergency department with complaints of productive cough, congestion, and shortness of breath times 1 week. On arrival, patient mildly hypertensive at 152/73, patient afebrile, nontoxic-appearing, lungs with inspiratory and expiratory wheeze at the right upper and lower lung portillo. Patient is speaking in full sentences under no acute respiratory distress. Differential diagnoses include pneumonia, viral syndrome, asthma exacerbation, bronchitis. Less likely pneumothorax. She has no chest pain, regular rate and rhythm. Plan: Chest x-ray, viral swabs, ED bronch protocol, antibiotic, and prednisone Differential Diagnosis Differential Diagnoses: The differential diagnosis associated with the presentat ion includes See above Admission/Observation Consideration of admission/observation: Escalation of care including admission/observation considered Escalation of care including admission/observation considered however given workup today not warranted at this time. Lab Data [facility] Lab Attestation statement: I reviewed the patient's lab results. Negative flu, COVID, RSV Labs: Lab Results 01/16/24 Range/Units 15:22 Influenza Type A (PCR) NEGATIVE (Negative) Influenza Type B (PCR) NEGATIVE (Negative) RSV RNA Qual (PCR) NEGATIVE (Negative) SARS-CoV-2 RNA (RT-PCR) NEGATIVE (Negative) Radiology Impression Discussion of test interpretation with radiology: I have reviewed the radiolog ist's reading. Radiologist Impression: FINDINGS: The cardiac and mediastinal contours are stable. There is question bronchial wall thickening at the right lung base. There is linear scarring or subsegmental atelectasis in the left superior hilar region that appears unchanged. Lungs are otherwise clear. No pleural effusion or pneumothorax. Degenerative changes of the spine and mild scoliosis. Mild pectus deformity of the chest. XR/XR chest 2V IMPRESSION: Question bronchial wall thickening at the right lung base. Dictated By: Britney Starr MD Discharge Plan Discharge Clinical Impression: URI (upper respiratory infection) Patient Disposition: Home, Self-Care Instructions: Upper Respiratory Infection (ED), Wheezing (ED) Additional Instructions: You were seen in the emergency department due to cough, and shortness breath. You tested negative for COVID, flu, RSV. You likely have a upper respiratory infection however given you have been sick for several weeks, we are treating you with an antibiotic. Please complete full course of antibiotics even if you are feeling better. Drink plenty of fluids get plenty of rest. If any new or worsening symptoms occur including but not limited to chest pain, shortness of breath, please return for re-evaluation. Prescriptions: New azithromycin 250 mg tablet 250 mg PO DAILY 4 Days Qty: 4 0RF Rx Instructions: start on day 2 of therapy prednisone 20 mg tablet 20 mg PO DAILY 4 Days Qty: 4 0RF Rx Instructions: Start 01/17/2024 No Action (DME) compress.stocking,knee,reg,med Misc See Rx Instructions .Route Qty: 2 0RF Rx Instructions: As directed albuterol sulfate [Ventolin HFA] 90 mcg/actuation HFA aerosol inhaler 2 puff inhalation Q6H PRN (Reason: shortness of breath or wheezing) 30 Days Qty: 8 2RF (DME) Shower Chair Misc See Rx Instructions .Route Qty: 1 0RF Rx Instructions: As directed (DME) Grab bar Misc See Rx Instructions .Route Qty: 2 0RF Rx Instructions: As directed (DME) toilet frame See Rx Instructions .Route .MEDSUPPLY Qty: 1 0RF Rx Instructions: As directed (DME) handheld showerhead See Rx Instructions .Route .MEDSUPPLY Qty: 1 0RF Rx Instructions: As directed (DME) Ultra-Light Rollator Misc See Rx Instructions .Route Qty: 1 0RF Rx Instructions: As directed (DME) underpads [Bed Underpads] Pad See Rx Instructions .Route Qty: 100 6RF Rx Instructions: As directed (DME) incontinence pads regular See Rx Instructions .Route .MEDSUPPLY Qty: 240 6RF Rx Instructions: As directed Eliquis 5 mg tablet 5 mg PO BID Qty: 60 7RF calcium carbonate-vitamin D3 [Calcium 500 With D] 500 mg-10 mcg (400 unit) tablet 1 tab PO BID 90 Days Qty: 180 2RF omeprazole 40 mg capsule,delayed release(DR/EC) 40 mg PO BID Qty: 180 2RF ipratropium-albuterol 0.5 mg-3 mg(2.5 mg base)/3 mL solution for nebulization 3 ml inhalation BID 30 Days Qty: 180 6RF fluticasone propionate 50 mcg/actuation spray,suspension 1 spray intranasal DAILY PRN (Reason: Allergy Symptoms) donepezil 10 mg tablet 10 mg PO DAILY memantine 5 mg tablet 5 mg PO BID acetaminophen 650 mg tablet extended release 650 mg PO Q8H PRN (Reason: pain) albuterol sulfate 90 mcg/actuation HFA aerosol inhaler 2 puff inhalation Q4-6H PRN (Reason: cough) Qty: 8.5 0RF lisinopril 40 mg tablet 40 mg PO DAILY Qty: 90 3RF diclofenac sodium [Voltaren Arthritis Pain] 1 % gel 4 g topical QID PRN (Reason: pain (scale score 7-10)) Qty: 100 0RF Rx Instructions: apply to shoulders, low back pain meclizine 25 mg tablet 25 mg PO BID PRN (Reason: dizziness) Qty: 30 0RF cholecalciferol (vitamin D3) 25 mcg (1,000 unit) capsule 25 mcg PO DAILY aspirin [Enteric Coated Aspirin] 81 mg tablet,delayed release (DR/EC) 81 mg PO DAILY metoprolol succinate [Toprol XL] 50 mg tablet extended release 24 hr 50 mg PO BID 30 Days Qty: 60 5RF budesonide 0.5 mg/2 mL suspension for nebulization 0.5 mg inhalation BID 30 Days Qty: 120 6RF sertraline 25 mg tablet See Rx Instructions PO DAILY Qty: 60 6RF Rx Instructions: 1 tabs fro 4 weeks then 2 tabs qd orally daily; torsemide 10 mg tablet 10 mg PO DAILY atorvastatin 40 mg tablet 40 mg PO BEDTIME Qty: 90 1RF Discharge Date/Time: 01/16/24 19:11 Print Language: Tanzanian
[2024-01-16 16:13] LABS: Influenza A PCR NEGATIVE (Negative); Influenza B PCR NEGATIVE (Negative); Resp Syncy Virus RNA Qual PCR NEGATIVE (Negative); SARS COV2 PCR INHOUSE NEGATIVE (Negative)
[2024-01-16 16:26] VITALS: BP 171/63; PULSE 76; RESP 18; TEMP 36.6; O2SAT 97
[2024-01-16] MEDS: Azithromycin 500 MG TABLET PO (18:16)
[2024-01-16] MEDS: predniSONE 20 MG TABLET 40 MG PO (18:16)
[2024-01-16] MEDS: Albuterol Sulfate 2.5 MG, Albuterol/Iprat 2.5/0.5MG 3 ML 3 ML INHALE (18:19)
[2024-01-16 18:20] VITALS: PULSE 73; RESP 19; O2SAT 98
[2024-01-16 19:11] VITALS: BP 102/81; PULSE 100; RESP 16; TEMP 36.6; O2SAT 98
== END 2024-01-16 19:11 | disposition home or self-care (01) ==
PROVIDERS: Nurse Practitioner Family; Emergency Provider Emergency Medicine; PCP Internal Medicine
DX: J06.9 Acute upper respiratory infection, unspecified (principal); J45.909 Unspecified asthma, uncomplicated; I48.0 Paroxysmal atrial fibrillation; I10 Essential (primary) hypertension; Z86.73 Personal history of transient ischemic attack (TIA), and cerebral infarction without residual deficits; Z79.01 Long term (current) use of anticoagulants
CPT/HCPCS: 0241U; 71046; 94640; 99283; 99284

== ENCOUNTER 2024-02-25 08:34 | Outpatient (AMB) | payer OTHER, SELFPAY ==
--- NOTE | 2024-02-25 08:41 | A.OFFVIS_ITS ---
Vital Signs 02/25/24 08:46 Height 5 ft 4 in Weight 142 lb BMI 24.4 BP 131/59 L Blood Pressure Location Lt brachial Position Sitting Pulse 56 Intake Visit Reasons: difficulty swallowing Intake Note: Patient new consult for swallowing problems. Patient is been for more than 2 month she is been having swallowing problems with solid food and all tablets, abdominal pain with bloating, acid reflex with burning sensation, and between diarrhea and constipation. She is not eating well due her swallowing problem. Lay Out Carpenter Required: No Accompanied by: Spouse Allergies oxycodone [From Percocet] Allergy (Intermediate, Verified 02/25/24 08:39) Agitated HPI HPI difficulty swallowing: Details: 78 years old female with past medical history of CAD, depression, GERD, urinary incontinence, lymphedema, asthma, history of CVA, lumbar radiculopathy, hypertension, AFib, hypercholesteremia is here today for initial consultation. Patient has been having trouble swallowing in the past couple months. Patient reports that depending on what she eats she will have trouble. No problem swall owing fluids, trouble swallowing more solid food and her medications. Patient reports that the symptoms are quite new. Patient is accompanied by her who is helping with translation per patient's request. Patient also reports epigastric pain. States that omeprazole is not helping patient reports postprandial epigastric pain and burning. Patient states that she feels acid reflux coming up. Scheduled for barium swallow in April. Patient reports nausea denies vomiting. Patient denies choking. Patient reports that postprandially she will have loose stools, however she feels like she does not empty her bowels. Patient denies melena, hematochezia, ribbon like stools. Patient is aggravated and has no appetite as she knows that she will have trouble swallowing food. [facility] Medical History Depression Hypersomnia Snoring Cognitive impairment History of CVA (cerebrovascular accident) Afib Acute CVA (cerebrovascular accident) IBS (irritable bowel syndrome) Abdominal hyperesthesia Dyspepsia Osteoarthritis of lumbar spine Scoliosis GERD (gastroesophageal reflux disease) HTN (hypertension) Surgical History Status post ablation of incompetent vein using laser (06/12/22) Hx of hysterectomy H/O oophorectomy H/O bilateral breast reduction surgery H/O section Family History Son HTN (hypertension) Father No problems noted. Mother No problems noted. Social History Household Members: Spouse Housing: House Are you a primary caregiver services home to a significant other at home: No Do you presently have visiting nurse or other home services: No Alcohol intake: never Patient Tobacco Use Status: Never used Tobacco e-Cigarette/Vaping Use: Never Used Second Hand Smoke Exposure: No Advance Directives Date on File: 08/13/21 service: No Current occupational status: disabled Cognitive needs: No Hearing needs: No Vision needs: Yes (Glasses) Review of Systems Const Denies weight gain and Denies weight loss ENT Reports no additional complaints, Reports dysphagia and Denies odynophagia Card Reports no additional complaints Resp Reports no additional complaints GI Reports abdominal pain (Epigastric), Denies belching, Denies melena, Reports bloating, Denies change in bowel habits, Reports constipation, Reports dysphagia, Denies excessive flatus, Denies dyspepsia, Reports heartburn, Denies diarrhea, Reports loose stools, Denies nausea, Denies odynophagia and Denies vomiting Reports no additional complaints Musc Reports no additional complaints Neuro Reports no additional complaints Psych Reports no additional complaints Endo Reports no additional complaints Physical Exam Vital Signs: Last Vital Signs Pulse 56 02/25/24 08:46 BP 131/59 L 02/25/24 08:46 BMI result Body Mass Index 24.4 Const General: healthy appearing, no acute distress and well developed Nutritional Appearance: well nourished Orientation/consciousness: patient oriented x3 Resp Effort & Inspection: normal respiratory effort, able to speak in complete sentences, no tracheal deviation and symmetric chest movement Auscultation: clear to auscultation bilaterally Cardio Rate: regular rate GI Inspection: Yes normal to inspection and No distended Palpation (GI): Soft to palpation, not firm, nontender and No hepatosplenomegaly present Auscultation: normal bowel sounds General: Yes no CVA tenderness Back/Spine/Pelvis Back: no CVA tenderness Skin General skin exam: elasticity normal, turgor normal and dry skin Neuro General: patient oriented x3 Psych Appearance: grossly normal Mental Status: mental status grossly normal Assessment & Plan Assessment & Plan (1) Difficulty swallowing: Code(s): R13.10 - Dysphagia, unspecified Category: Medical Qualifiers: Dysphagia type: esophageal phase Qualified Code(s): R13.19 - Other dysphagia (2) Postprandial epigastric pain: Code(s): R10.13 - Epigastric pain (3) Postprandial abdominal bloating: Code(s): R14.0 - Abdominal distension (gaseous) (4) Diarrhea: Code(s): R19.7 - Diarrhea, unspecified Qualifiers: Diarrhea type: functional diarrhea Qualified Code(s): K59.1 - Functional diarrhea (5) Chronic idiopathic constipation: Code(s): K59.04 - Chronic idiopathic constipation Plan Will rule out H pylori, check for pancreatitis, celiac. Patient will start taking pantoprazole in the morning and famotidine at bedtime. Discussed with patient trying protein shakes. Avoid dietary triggers. Discussed with patient for mental food and food that is high in sugars that could cause her to have abdominal bloating. Patient will follow-up in the office in 5-6 weeks, sooner on as needed basis. She is agreeable to this plan and verbalizes understanding of instructions. She was given the opportunity to ask questions and all questions answered. Thank you for allowing me to participate in her care Orders: Orders Transglutaminase Ab IgG Today R10.9 - Unspecified abdominal pain Transglutaminase IgA Today R10.9 - Unspecified abdominal pain Lipase Today R10.9 - Unspecified abdominal pain H pylori Ag Stool Today K21.9 - Gastro-esophageal reflux disease without esophagitis Medications: New pantoprazole take one tablet half an hour before breakfast 40 mg PO DAILY 30 tabs 2RF K21.9 - Gastro-esophageal reflux disease without esophagitis famotidine 40 mg PO BEDTIME 30 tabs 3RF K21.9 - Gastro-esophageal reflux disease without esophagitis Discontinued omeprazole Discontinued Reason: Doctor's Order 40 mg PO BID 180 caps 2RF Coding Level of Care Code New Pt Level 4 (37306) Diagnoses Esophageal dysphagia R13.19 Dysphagia type: esophageal phase Postprandial epigastric pain R10.13 Postprandial abdominal bloating R14.0 Functional diarrhea K59.1 Diarrhea type: functional diarrhea Chronic idiopathic constipation K59.04 Time Spent (min) 45 Comment 30 minutes spent with patient and additional 15 minutes spent reviewing her records
[2024-02-25 08:46] VITALS: BP 131/59; PULSE 56; BMI 24.4
== END 2024-02-25 09:12 | disposition home or self-care (01) ==
LOC: HO.HGI 08:34
PROVIDERS: PCP Internal Medicine; Visit Provider Nurse Practitioner Family
DX: R13.19 Other dysphagia (principal); R10.13 Epigastric pain; R14.0 Abdominal distension (gaseous); K59.1 Functional diarrhea; K59.04 Chronic idiopathic constipation
CPT/HCPCS: 99204

== ENCOUNTER → 2024-02-25 08:34 | Outpatient (BNVA) | payer OTHER, SELFPAY | PROVIDERS: PCP Internal Medicine; Visit Provider Nurse Practitioner Family | DX: K59.1 Functional diarrhea (principal); K59.04 Chronic idiopathic constipation; R13.19 Other dysphagia; R10.13 Epigastric pain; R14.0 Abdominal distension (gaseous) | CPT/HCPCS: 99202 ==

== ENCOUNTER 2024-03-14 08:24 | Outpatient (REF) | payer OTHER, SELFPAY | END 2024-03-14 08:25 | disposition home or self-care (01) | LOC: HO.MAMMO 08:24 | PROVIDERS: PCP Internal Medicine; Visit Provider Internal Medicine | DX: Z12.31 Encounter for screening mammogram for malignant neoplasm of breast (principal) | CPT/HCPCS: 77063; 77067 ==

== ENCOUNTER → 2024-03-14 09:00 | Outpatient (BNV) | payer OTHER, SELFPAY | PROVIDERS: PCP Internal Medicine; Visit Provider Radiology Diagnostic Radiology | DX: Z12.31 Encounter for screening mammogram for malignant neoplasm of breast (principal) | CPT/HCPCS: 77063; 77067 ==

== ENCOUNTER 2024-04-04 08:23 | Outpatient (REF) | payer OTHER, SELFPAY ==
--- NOTE | ~2024-04-04 | FL_ITS ---
EXAMINATION: XR FLUOROSCOPY UPPER GI WITH AIR CLINICAL INFORMATION: Dysphagia COMPARISON: None TECHNIQUE: Fluoroscopic air contrast upper GI examination was performed utilizing standard techniques with thin and thick barium and effervescent granules. Numerous spot images were obtained. FINDINGS: Lateral cine images of the oropharynx and hypopharynx demonstrate a delayed swallow mechanism with normal epiglottic inversion and soft palate elevation. No tracheal penetration, glottic or subglottic aspiration identified. No nasopharyngeal reflux present. Hypopharyngeal structures appear normal without evidence of mass or diverticulum. There is a small amount of posterior indentation of the esophagus due to anterior bridging osteophyte at C5-C6. Mild cricopharyngeal achalasia is present. Dual and single contrast images of the esophagus demonstrate a dilated esophagus. Mucosal pattern is without any evidence of mass or ulcerations. There is moderate narrowing of the GE junction that may represent achalasia, or a benign stricture. Esophageal peristalsis is mildly disorganized. No evidence of hiatus hernia identified. No significant gastroesophageal reflux was seen during the course of the examination and on reflux views. Dual contrast and single contrast images of the stomach demonstrated a normal contour. There are multiple foci of contrast pooling in the fundus the stomach that may represents small superficial aphthous ulcers. No masses are present. Contrast freely passed into the gastric antrum and duodenal bulb without delay. Single and air-contrast images of the duodenal bulb demonstrate no abnormality. The duodenal sweep has a normal appearance, course, and mucosal fold appearance. The imaged proximal jejunum has a normal fold pattern and caliber. FLUOROSCOPY TIME: 4 minutes 25 seconds Number of Spot Images: 8 Number of Cine: 14 DOSE AREA PRODUCT: 8 uGy-m2 (microgray-meter squared) FL/FL barium swallow IMPRESSION: 1. Delayed swallowing mechanism. No evidence of aspiration. 2. Small amount of posterior indentation of the cervical esophagus due to an anterior bridging osteophyte at C5-C6. This is unlikely contributing to the patient's symptoms. 3. Mild cricopharyngeal achalasia 4. Patulous esophagus with moderate narrowing of the GE junction that may represent achalasia, or a benign stricture. Recommend correlation with EGD. 5. Mildly disorganized esophageal peristalsis 6. Multiple foci of contrast pooling in the fundus the stomach that may represent small superficial aphthous ulcers. Recommend correlation with EGD. This procedure was performed by Tyshawn Sow PA-C, and supervised by Dr. Brunson
== END 2024-04-04 08:24 | disposition home or self-care (01) ==
LOC: HO.XRAY 08:23
PROVIDERS: PCP Internal Medicine; Visit Provider Internal Medicine
DX: R13.10 Dysphagia, unspecified (principal)
CPT/HCPCS: 74220

== ENCOUNTER → 2024-04-04 08:25 | Outpatient (BNV) | payer OTHER, SELFPAY | PROVIDERS: PCP Internal Medicine; Visit Provider Physician Assistant Surgical | DX: R13.10 Dysphagia, unspecified (principal) | CPT/HCPCS: 74246 ==

== ENCOUNTER 2024-04-13 11:17 | Outpatient (REF) | payer OTHER, SELFPAY ==
[2024-04-13 12:37] LABS: Lipase 23 U/L (8-78)
[2024-04-14 20:29] LABS: Transglutaminase Ab IgG <1.0 U/mL; Transglutaminase IgA <1.0 U/mL
== END 2024-04-13 11:18 | disposition home or self-care (01) ==
LOC: HO.LAB 11:17
PROVIDERS: PCP Internal Medicine; Visit Provider Nurse Practitioner Family
DX: R10.9 Unspecified abdominal pain (principal)
CPT/HCPCS: 36415; 83690; 86364

== ENCOUNTER 2024-04-17 13:40 | Outpatient (AMB) | payer OTHER, SELFPAY ==
--- NOTE | 2024-04-17 13:43 | MHC.OFFVIS ---
Vital Signs 04/17/24 13:51 Height 5 ft 4 in Weight 145 lb 1.027 oz BMI 24.9 BP 148/76 H Blood Pressure Location Rt brachial Position Sitting Pulse 62 Pulse Source Pulse Oximeter Pulse Oximetry (%) 98 Oxygen Delivery Method Room Air Intake Visit Reasons: F/u dysphagia and labs Intake Note: Becca presents in office today for a scheduled FUV CC; Pt is here to discuss labs and current status with regard to sx management. Pt did not get their lab work done (orders still outstanding), pt would like to discuss the results of their recent imaging with regard to the dysphagia. Linux System Engineer Required: Yes Linux System Engineer Name: Jabari [id number] Information Interpreted: non-clinical & clinical Accompanied by: Self / Same As Patient Allergies oxycodone [From Percocet] Allergy (Intermediate, Verified 04/17/24 13:43) Agitated HPI HPI F/u dysphagia and labs: Details: LAST VISIT Difficulty swallowing Postprandial epigastric pain Postprandial abdominal bloating Diarrhea Chronic idiopathic constipation Plan Will rule out H pylori, check for pancreatitis, celiac. Patient will start taking pantoprazole in the morning and famotidine at bedtime. Discussed with patient trying protein shakes. Avoid dietary triggers. Discussed with patient for mental food and food that is high in sugars that could cause her to have abdominal bloating. Patient will follow-up in the office in 5-6 weeks, sooner on as needed basis. She is agreeable to this plan and verbalizes understanding of instructions. She was given the opportunity to ask questions and all questions answered. ? Thank you for allowing me to participate in her care Orders Orders Transglutaminase Ab IgG Today R10.9 Transglutaminase IgA Today R10.9 Lipase Today R10.9 H pylori Ag Stool Today K21.9 Medications New pantoprazole take one tablet half an hour before breakfast 40 mg PO DAILY 30 tabs 2RF K21.9 famotidine 40 mg PO BEDTIME 30 tabs 3RF K21.9 Discontinued omeprazole Discontinued Reason: Doctor's Order 40 mg PO BID 180 caps 2RF TODAY'S VISIT Patient is here today for follow-up and to discuss lab results as well as barium swallow results. Transglutaminase normal, lipase normal. Barium swallow shows narrowing of the esophagus near GE junction, disorganized peristalses of the esophagus. Patient states that she takes pantoprazole and seems that her symptoms got little better. Patient is also taking famotidine at night time. She reports that she eating smaller meals. Still has trouble swallowing, however feels little better. Patient denies any nausea or vomiting. Denies any dyspepsia. Patient has a history of PAF and is on Eliquis. Has appointment in Cardiology in July. Patient denies any shortness of breath or chest pain at this time. Patient will need to be cleared by Cardiology before going for procedure. Will send message to see if patient can be cleared sooner. For now will schedule the procedure afterwards. Patient seems to be doing well on PPI and H2 jelani so far, however would like to have her cleared just in case she needs to go for endoscopy sooner. [facility] Medical History Depression Hypersomnia Snoring Cognitive impairment History of CVA (cerebrovascular accident) Afib Acute CVA (cerebrovascular accident) IBS (irritable bowel syndrome) Abdominal hyperesthesia Dyspepsia Osteoarthritis of lumbar spine Scoliosis GERD (gastroesophageal reflux disease) HTN (hypertension) Surgical History Status post ablation of incompetent vein using laser (06/12/22) Hx of hysterectomy H/O oophorectomy H/O bilateral breast reduction surgery H/O section Family History Son HTN (hypertension) Father No problems noted. Mother No problems noted. Social History Household Members: Spouse Housing: House Are you a primary direct support professional caregiver to a significant other at home: No Do you presently have visiting nurse or other home services: No Alcohol intake: never Patient Tobacco Use Status: Never used Tobacco e-Cigarette/Vaping Use: Never Used Second Hand Smoke Exposure: No Advance Directives Date on File: 08/13/21 service: No Current occupational status: disabled Cognitive needs: No Hearing needs: No Vision needs: Yes (Glasses) Review of Systems Const Denies weight gain and Denies weight loss ENT Reports no additional complaints, Reports dysphagia and Denies odynophagia Card Reports no additional complaints Resp Reports no additional complaints GI Reports abdominal pain (Epigastric), Denies belching, Denies melena, Reports bloating, Denies change in bowel habits, Reports constipation, Reports dysphagia, Denies excessive flatus, Denies dyspepsia, Reports heartburn, Denies diarrhea, Reports loose stools, Denies nausea, Denies odynophagia and Denies vomiting Reports no additional complaints Musc Reports no additional complaints Neuro Reports no additional complaints Psych Reports no additional complaints Endo Reports no additional complaints Physical Exam Vital Signs: Last Vital Signs Pulse 62 04/17/24 13:51 BP 148/76 H 04/17/24 13:51 Pulse Ox 98 04/17/24 13:51 Oxygen Delivery Method Room Air 04/17/24 13:51 BMI result Body Mass Index 24.9 Const General: healthy appearing, no acute distress and well developed Nutritional Appearance: well nourished Orientation/consciousness: patient oriented x3 Resp Effort & Inspection: normal respiratory effort, able to speak in complete sentences, no tracheal deviation and symmetric chest movement Auscultation: clear to auscultation bilaterally Cardio Rate: regular rate GI Inspection: Yes normal to inspection and No distended Palpation (GI): Soft to palpation, not firm, nontender and No hepatosplenomegaly present Auscultation: normal bowel sounds General: Yes no CVA tenderness Back/Spine/Pelvis Back: no CVA tenderness Skin General skin exam: elasticity normal, turgor normal and dry skin Neuro General: patient oriented x3 Psych Appearance: grossly normal Mental Status: mental status grossly normal Results Reviewed Results Reviewed: Laboratory Tests 04/13/24 11:39 Lipase 23 Tiss Transglutamin IgG <1.0 Tiss Transglutamin IgA <1.0 BARIUM SWALLOW 04/04/2024 IMPRESSION: 1. Delayed swallowing mechanism. No evidence of aspiration. 2. Small amount of posterior indentation of the cervical esophagus due to an anterior bridging osteophyte at C5-C6. This is unlikely contributing to the patient's symptoms. 3. Mild cricopharyngeal achalasia 4. Patulous esophagus with moderate narrowing of the GE junction that may represent achalasia, or a benign stricture. Recommend correlation with EGD. 5. Mildly disorganized esophageal peristalsis 6. Multiple foci of contrast pooling in the fundus the stomach that may represent small superficial aphthous ulcers. Recommend correlation with EGD. Assessment & Plan Assessment & Plan (1) Difficulty swallowing: Code(s): R13.10 - Dysphagia, unspecified Category: Medical Qualifiers: Dysphagia type: esophageal phase Qualified Code(s): R13.19 - Other dysphagia (2) Postprandial epigastric pain: Code(s): R10.13 - Epigastric pain (3) Postprandial abdominal bloating: Code(s): R14.0 - Abdominal distension (gaseous) (4) Diarrhea: Code(s): R19.7 - Diarrhea, unspecified Qualifiers: Diarrhea type: functional diarrhea Qualified Code(s): K59.1 - Functional diarrhea (5) Chronic idiopathic constipation: Code(s): K59.04 - Chronic idiopathic constipation Plan Continue PPI and H2 jelani. Continue avoiding dietary triggers and late night snacking. Patient will be scheduled for upper endoscopy. Message sent to flight deck officer and ACTIVE DIRECTORY ADMINISTRATOR in cardiovascular practice to see if patient can be cleared sooner. Right now be scheduling her for August. Lab results as well as barium swallow results discussed with patient. Patient is agreeable to this plan and verbalizes understanding of instructions. She was given the opportunity to ask questions and all questions answered. Thank you for allowing me to participate in her care Coding Level of Care Code Est Pt Level 3 (56181) Diagnoses Esophageal dysphagia R13.19 Dysphagia type: esophageal phase Postprandial epigastric pain R10.13 Postprandial abdominal bloating R14.0 Functional diarrhea K59.1 Diarrhea type: functional diarrhea Chronic idiopathic constipation K59.04 Time Spent (min) 35 Comment 520 minutes spent with patient and additional 10 minutes spent reviewing her records
[2024-04-17 13:51] VITALS: BP 148/76; PULSE 62; O2SAT 98; BMI 24.9
== END 2024-04-17 14:37 | disposition home or self-care (01) ==
PROVIDERS: PCP Internal Medicine; Visit Provider Nurse Practitioner Family
DX: R13.19 Other dysphagia (principal); R10.13 Epigastric pain; R14.0 Abdominal distension (gaseous); K59.1 Functional diarrhea; K59.04 Chronic idiopathic constipation
CPT/HCPCS: 99213

== ENCOUNTER → 2024-04-17 13:40 | Outpatient (BNVA) | payer OTHER, SELFPAY | PROVIDERS: PCP Internal Medicine; Visit Provider Nurse Practitioner Family | DX: R13.19 Other dysphagia (principal); R10.13 Epigastric pain; R14.0 Abdominal distension (gaseous); K59.1 Functional diarrhea; K59.04 Chronic idiopathic constipation | CPT/HCPCS: 99212 ==

== ENCOUNTER 2024-04-18 16:39 | Outpatient (REF) | payer OTHER, SELFPAY | END 2024-04-18 16:40 | disposition home or self-care (01) | LOC: HO.LNP 16:39 | PROVIDERS: Visit Provider Nurse Practitioner Family | DX: K21.9 Gastro-esophageal reflux disease without esophagitis (principal) | CPT/HCPCS: 87338 ==

== ENCOUNTER 2024-06-01 08:40 | Outpatient (AMB) | payer OTHER, SELFPAY ==
--- NOTE | 2024-06-01 08:48 | MHC.OFFVIS ---
Vital Signs 06/01/24 08:49 Height 5 ft 4 in Weight 146 lb BMI 25.1 BP 112/67 Blood Pressure Location Rt brachial Position Sitting Pulse 82 Pulse Source Doppler Pulse Oximetry (%) 99 Oxygen Delivery Method Room Air Intake Visit Reasons: Asthma Purchasing Contracting Clerk Required: Yes Purchasing Contracting Clerk Name: Sheeba TannerKaylaSylvie Allergies oxycodone [From Percocet] Allergy (Intermediate, Verified 06/01/24 08:54) Agitated HPI HPI Asthma: Details: 78-year-old lady, lifetime nonsmoker, with underlying history hypertension, AFib previously on Multaq, now followed for asthma and pulmonary component to dyspnea. She has been using nebulized budesonide and duo nebs once daily with good control of her symptoms. For her GERD symptoms she is on PPI and famotidine and is scheduled to undergo EGD with her GI provider. [facility] Medical History Depression Hypersomnia Snoring Cognitive impairment History of CVA (cerebrovascular accident) Afib Acute CVA (cerebrovascular accident) IBS (irritable bowel syndrome) Abdominal hyperesthesia Dyspepsia Osteoarthritis of lumbar spine Scoliosis GERD (gastroesophageal reflux disease) HTN (hypertension) Surgical History Status post ablation of incompetent vein using laser (06/12/22) Hx of hysterectomy H/O oophorectomy H/O bilateral breast reduction surgery H/O section Family History Son HTN (hypertension) Father No problems noted. Mother No problems noted. Social History Household Members: Spouse Housing: House Are you a primary career guidance technician to a significant other at home: No Do you presently have visiting nurse or other home services: No Alcohol intake: never Patient Tobacco Use Status: Never used Tobacco e-Cigarette/Vaping Use: Never Used Second Hand Smoke Exposure: No Advance Directives Date on File: 08/13/21 service: No Current occupational status: disabled Cognitive needs: No Hearing needs: No Vision needs: Yes (Glasses) Review of Systems Const Denies daytime sleepiness, Denies excessive sweating, Denies fatigue, Denies fever(s), Denies lethargy, Denies malaise, Denies night sweats, Denies snoring and Denies weight loss Eyes Denies blurry vision and Denies itchy eyes ENT Denies nasal congestion, Denies post nasal drip, Denies sinus pain, Denies sinus pressure and Denies other ( Thrush) Card Denies chest pain, Denies pedal edema, Denies dyspnea, Denies orthopnea and Denies paroxysmal nocturnal dyspnea Resp Denies cough, Denies hemoptysis, Denies excessive phlegm production, Denies dyspnea, Denies snoring and Denies wheezing GI Denies abdominal pain and Denies heartburn Musc Denies myalgias, Denies arthralgias and Denies joint swelling Skin/Breast Denies rash Neuro Denies memory loss and Denies seizure-like activity Psych Denies abnormal sleep pattern, Denies anxiety and Denies memory loss Endo Denies excessive sweating, Denies fatigue and Denies heat intolerance Eric/Lymph Denies easy bruising Aller/Immun Denies itchy eyes, Denies seasonal rhinorrhea and Denies wheezing Physical Exam Vital Signs: Last Vital Signs Pulse 82 06/01/24 08:49 BP 112/67 06/01/24 08:49 Pulse Ox 99 06/01/24 08:49 Oxygen Delivery Method Room Air 06/01/24 08:49 BMI result Body Mass Index 25.1 Const General: no acute distress and alert Nutritional Appearance: not obese Orientation/consciousness: Other orientation findings ( oriented) HEENT Head: Yes atraumatic Eyes General: appearance normal, both eyes and all related structures Sclerae: sclerae normal EOM: EOMs intact bilaterally Neck Neck: Yes supple Lymphatic: no lymphadenopathy noted Resp Effort & Inspection: normal respiratory effort and no use of accessory muscles Auscultation: clear to auscultation bilaterally Cardio Rate: regular rate Rhythm: regular rhythm Heart sounds: no gallops, no murmurs and no rubs Skin General skin exam: other ( warm) Extrem General: No clubbing, No cyanosis and No edema Assessment & Plan Assessment & Plan (1) Asthma: Code(s): J45.909 - Unspecified asthma, uncomplicated Category: Medical Plan: Well controlled on nebulized budesonide, Brovana and duo nebs. Continue current regimen. (2) GERD (gastroesophageal reflux disease): Code(s): K21.9 - Gastro-esophageal reflux disease without esophagitis Category: Medical Plan: Improved control on PPI/famotidine. Patient is scheduled to undergo EGD with her GI provider. Coding Level of Care Code Est Pt Level 4 (67644) Diagnoses Asthma J45.909 GERD (gastroesophageal reflux disease) K21.9
[2024-06-01 08:49] VITALS: BP 112/67; PULSE 82; O2SAT 99; BMI 25.1
== END 2024-06-01 09:07 | disposition home or self-care (01) ==
PROVIDERS: PCP Internal Medicine; Visit Provider Internal Medicine Pulmonary Disease
DX: J45.909 Unspecified asthma, uncomplicated (principal); K21.9 Gastro-esophageal reflux disease without esophagitis
CPT/HCPCS: 99214

== ENCOUNTER → 2024-06-01 08:40 | Outpatient (BNVA) | payer OTHER, SELFPAY | PROVIDERS: PCP Internal Medicine; Visit Provider Internal Medicine Pulmonary Disease | DX: J45.909 Unspecified asthma, uncomplicated (principal); K21.9 Gastro-esophageal reflux disease without esophagitis | CPT/HCPCS: 99212 ==

== ENCOUNTER 2024-06-03 12:23 | Emergency (ER) | payer OTHER, SELFPAY ==
--- NOTE | ~2024-06-03 | CT_ITS ---
EXAMINATION: CT HEAD WITHOUT IV CONTRAST CLINICAL INFORMATION: abel x5 days, htn COMPARISON: CT head without contrast 05/18/2023 TECHNIQUE: Contiguous axial imaging was performed from the skull base to vertex without intravenous contrast. Sagittal and coronal reformatted images were obtained. This CT examination was performed using dose optimization techniques as appropriate, variously including the following: * Automated exposure control * Adjustment of mA and/or kV according to patient size (this includes techniques or standardized protocols for targeted exams where dose is matched to indication/reason for exam; i.e. extremities or head) Use of iterative reconstruction technique DLP: 694 mGy-cm FINDINGS: No acute osseous or soft tissue abnormality. The mastoid air cells and visualized portions of the paranasal sinuses are well aerated. There is no evidence of acute intracranial hemorrhage or territorial infarction. No abnormal mass effect or midline shift is seen. Waterman to white matter differentiation is well preserved. No extra-axial fluid collections are identified. No hydrocephalus. Proportional prominence of the ventricles and sulcal spaces related to volume loss. Patchy periventricular and deep white matter hypoattenuation is consistent with moderate small vessel ischemic changes. CT/CT head/brain wo IV con IMPRESSION: No acute intracranial abnormality including hemorrhage, mass effect, hydrocephalus, or acute territorial edematous infarction. Electronically signed by: Tyshawn Jimenez MD 06/03/2024 01:50 PM EDT
[2024-06-03 12:27] VITALS: BP 172/87; PULSE 77; RESP 16; TEMP 36.1; O2SAT 98; BMI 23.2
--- NOTE | 2024-06-03 12:28 | ED_ITS ---
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 Reports headache was gradual in onset. Denies worst headache of life. Denies headache worse with standing. Denies nausea or vomiting associated with headache. Denies any double vision, blurred vision or other visual changes. Denies photophobia. Has tried [id number] medications without relief. Denies radiation of pain to neck or back. Denies fevers. Denies dizziness or lightheadedness. Denies fall or other trauma. States has been taking her blood pressure medication as prescribed. MD elicited complaint: headache Pertinent past history: hypertension Onset (ago): day(s) Onset description: gradually Location: right and occipital Severity: severe Quality & Timing: aching Relieving factors: nothing Associated symptoms: none Treatments prior to arrival: acetaminophen Related Data Home Medications ?Medication ?Instructions ?Recorded ?Confirmed aspirin 81 mg tablet,delayed 81 mg PO DAILY 12/05/20 01/11/24 release (Enteric Coated Aspirin) cholecalciferol (vitamin D3) 25 25 mcg PO DAILY 12/05/20 01/11/24 mcg (1,000 unit) capsule fluticasone propionate 50 1 spray intranasal DAILY PRN 08/13/21 01/11/24 mcg/actuation nasal Allergy Symptoms spray,suspension acetaminophen 650 mg 650 mg PO Q8H PRN pain 08/09/23 01/11/24 tablet,extended release donepezil 10 mg tablet 10 mg PO DAILY 08/09/23 01/11/24 memantine 5 mg tablet 5 mg PO BID 08/09/23 01/11/24 torsemide 10 mg tablet 10 mg PO DAILY 01/11/24 01/11/24 Previous Rx's ?Medication ?Instructions ?Recorded diclofenac sodium 1 % topical gel 4 g topical QID PRN pain (scale 10/13/21 (Voltaren Arthritis Pain) score 7-10) #100 grams compress.stocking,knee,reg,med #2 ea 02/26/22 meclizine 25 mg tablet 25 mg PO BID PRN dizziness #30 tabs 04/10/22 Ventolin HFA 90 mcg/actuation 2 puff inhalation Q6H PRN 12/24/22 aerosol inhaler (albuterol sulfate) shortness of breath or wheezing 30 days #8 grams Grab bar #2 ea 12/29/22 Shower Chair #1 ea 12/29/22 handheld showerhead #1 ea 12/29/22 incontinence pads #240 ea 12/29/22 toilet frame #1 ea 12/29/22 underpads (Bed Underpads) #100 ea 12/29/22 walker (Ultra-Light Rollator misc) #1 ea 12/29/22 lisinopril 40 mg tablet 40 mg PO DAILY #90 tabs 03/17/23 sertraline 25 mg tablet See Rx Instructions PO DAILY #60 08/30/23 tabs metoprolol succinate 50 mg 50 mg PO BID 30 days #60 tabs 08/31/23 tablet,extended release 24 hr (Toprol XL) apixaban 5 mg tablet (Eliquis) 5 mg PO BID #60 tabs 10/06/23 calcium carbonate 500 mg-vitamin 1 tab PO BID 90 days #180 tabs 10/24/23 D3 10 mcg (400 unit) tablet (Calcium 500 With D) atorvastatin 40 mg tablet 40 mg PO BEDTIME #90 tabs 01/14/24 azithromycin 250 mg tablet 250 mg PO DAILY 4 days #4 tabs 01/16/24 prednisone 20 mg tablet 20 mg PO DAILY 4 days #4 tabs 01/16/24 albuterol sulfate 90 mcg/actuation 2 puff inhalation Q4-6H PRN cough 02/10/24 aerosol inhaler #8.5 grams pantoprazole 40 mg tablet,delayed 40 mg PO DAILY #30 tabs 05/22/24 release famotidine 40 mg tablet 40 mg PO BEDTIME #30 tabs 05/24/24 budesonide 0.5 mg/2 mL suspension 0.5 mg (2 mL) inhalation DAILY 30 06/01/24 for nebulization days #60 mL ipratropium 0.5 mg-albuterol 3 mg 3 ml inhalation DAILY 30 days #90 06/01/24 (2.5 mg base)/3 mL nebulization mL soln Allergies Allergy/AdvReac Type Severity Reaction Status Date / Time oxycodone [From Percocet] Allergy Intermediate Agitated Verified 06/03/24 12:28 Review of Systems 2 Review of Systems: As per HPI. Yes all other systems are reviewed and are negative Constitutional: Constitutional: Reports as per HPI COUNT INCLUDES [facility] Past Medical History Medical History Depression Hypersomnia Snoring Cognitive impairment History of CVA (cerebrovascular accident) Afib Acute CVA (cerebrovascular accident) IBS (irritable bowel syndrome) Abdominal hyperesthesia Dyspepsia Osteoarthritis of lumbar spine Scoliosis GERD (gastroesophageal reflux disease) HTN (hypertension) Surgical History Status post ablation of incompetent vein using laser (06/12/22) Hx of hysterectomy H/O oophorectomy H/O bilateral breast reduction surgery H/O section Family History Family History Son HTN (hypertension) Father No problems noted. Mother No problems noted. Social History Social History Household Members: Spouse Housing: House Are you a primary director of healthcare systems to a significant other at home: No Do you presently have visiting nurse or other home services: No Alcohol intake: never Patient Tobacco Use Status: Never used Tobacco e-Cigarette/Vaping Use: Never Used Second Hand Smoke Exposure: No Advance Directives: No Advance Directives Information Provided: No Advance Directives Date on File: 08/13/21 Do you have a plan to hurt others: No Plan service: No Current occupational status: disabled Cognitive needs: No Hearing needs: No Vision needs: Yes (Glasses) Physical Exam 2 Vital Signs: Vital Signs: Last Vital Signs Temp 98.5 F 06/03/24 15:19 Pulse 67 06/03/24 15:19 Resp 16 06/03/24 15:19 BP 151/86 H 06/03/24 15:19 Pulse Ox 98 06/03/24 15:19 O2 Del Method Room Air 06/03/24 15:19 BMI result Body Mass Index 23.2 Vital signs have been reviewed and appear to be correct. Blood pressure elevated. Heart rate normal. Respiratory rate normal. Temperature normal. Oxygen saturation normal. Const: General: cooperative, healthy appearing and no acute distress O rientation/consciousness: oriented to person, oriented to place, oriented to time and patient oriented x3 Limitations: no limitations HEENT: Head: Yes normocephalic and Yes atraumatic Ears: external ears normal General nose exam: Normal external nose present Face and sinus: Yes face symmetric Mouth: oropharynx normal and moist mucous membranes Throat: Yes uvula midline Eyes: Pupils: Equal, round and reactive pupils present EOM: EOMs intact bilaterally and No Nystagmus present Neck: Neck: Yes normal visual inspection, Yes no meningeal signs and Yes supple Resp: Effort & Inspection: normal respiratory effort and able to speak in complete sentences Auscultation: clear to auscultation bilaterally Cardio: Rate: regular rate Rhythm: regular rhythm Heart sounds: S1 normal heart sound present and S2 normal heart sound present GI: Palpation (GI): Soft to palpation and nontender Auscultation: n ormoactive bowel sounds : General: Yes no CVA tenderness Back/Spine/Pelvis: Back: no CVA tenderness Skin: General skin exam: elasticity normal and turgor normal Neuro: General: oriented to person, oriented to place, oriented to time, patient oriented x3, gait normal, tone normal, moves all extremities, Normal light touch and pain sensation, no meningeal signs, no focal motor deficits, CN's II-XI intact bilaterally and deep tendon reflexes 2+ bilaterally Cranial nerves: Yes Equal, round and reactive pupils present and No Nystagmus present Cognition (Neuro): normal cognition Motor exam (neuro): 5/5 motor strength present throughout, Pronator motor function not present, no tremor noted, no asterixis, Motor fasciculations not present, Normal motor muscle tone present throughout and Motor abnormalities not present Sensory Exam: Normal double simultaneous stimulation for sensation Coordination: [id number] test normal and [id number] test normal Romberg Test: Negative Extrem: General: Yes full ROM, Yes no pedal edema and Yes no calf tenderness Psych: Mental Status: mental status grossly normal Affect: normal affect Thought process: Normal thought process present NIH Stroke Scale Internal: Initial- Upon Arrival Time: 14:15 Level of Consciousness: Alert Level of Consciousness Questions: Answers both questions correctly Level of Consciousness Commands: Performs both tasks correctly Best Gaze: Normal Visual: No visual loss Facial Palsy: Normal Motor Arm (Right): No drift Motor Arm (Left): No drift Motor Leg (Right): No drift Motor Leg (Left): No drift Limb Ataxia: Absent Sensory: Normal Best Language: No aphasia Dysarthia: Normal Extinction and Inattention: No abnormality Score: 0 Course Course Course Narrative: This is an RME performed by Amy Bran CNP: Additional HPI, ROS, PE not included below will be deferred to primary provider. Patient is a 78-year-old female who presents to the emergency department for evaluation of right occipital headache constant in nature for 5 days, feels off balance at times with this. Denies associated fevers, chills, URI symptoms, ear pain, fall or injury, numbness or tingling of extremeties. No focal neurological deficits. Expresses concern because she has had a stroke in the past where she was asymptomatic. On review of records, she had an MRI in August of 2021 which revealed an acute right cerebellar infarct. MR at that time was done due to memory issues after having CVA in December of 2020. Medications Administered Generic Name Dose Route Start Last Admin Trade Name Freq PRN Reason Stop Dose Admin Sodium Chloride 1,000 mls @ 999 mls/hr 06/03/24 15:30 06/03/24 15:48 Ns IV 06/03/24 16:30 999 mls/hr .Q1H1M [id number] Administration Discontinued Medications Generic Name Dose Route Start Last Admin Trade Name Freq PRN Reason Stop Dose Admin Diphenhydramine HCl 12.5 mg 06/03/24 15:22 06/03/24 15:47 Diphenhydramine Hcl 50 Mg/Ml Vial IVPUSH 06/03/24 15:23 12.5 mg ONCE ONE Administration Metoclopramide HCl 10 mg 06/03/24 15:22 06/03/24 15:47 Metoclopramide Hcl 10 Mg/2 Ml Vial IVPUSH 06/03/24 15:23 10 mg ONCE ONE Administration Medical Decision Making Medical Decision Making MDM Narrative: Patient is a 78-year-old Burmese-speaking female with history of CVA, HTN, AFib on Eliquis, 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 On exam patient is awake, A+Ox3, BP elevated, VS otherwise WNL, afebrile, normal neurological exam without focal deficits, physical exam findings as above. NIHSS 0. Given reported symptoms and physical exam findings, initial differential includes CVA/ICH, tension headache, cluster headache. No red flag findings concerning for acute glaucoma, carotid artery dissection, CO poisoning, encephalitis, meningitis, preeclampsia, pseudotumor, temporal arteritis/giant cell arteritis. Labs unremarkable. CT head notable for no acute intracranial abnormality. My interpretation is in agreement with the radiologist's interpretation. Review of EMR notable from neurology visit with Dr. Martinez notes that after review of MRI and CTA brain, he feels symptoms of CVA were due to microvascular disease, recommended BP control and anticoagulation, both of which patient is currently on. Patient signed out to MARJ Menodza pending reassessment after medications. Differential Diagnosis Differential Diagnoses: The differential diagnosis associated with the presentation includes As per [facility]. Admission/Observation Consideration of admission/observation: Escalation of care including admission/observation considered Patient would have been admitted to the hospital had their work up had any findings where hospital admission was appropriate and their clinical presentation warranted hospital admission. Lab Data [facility] Lab Attestation statement: I reviewed the patient's lab results. As per [facility]. 06/03/24 13:10 06/03/24 13:10 Labs: Lab Results 06/03/24 Range/Units 13:10 WBC 4.2 L (4.8-10.8) X10*3/uL RBC 4.24 (4.20-5.50) X10*6/uL Hgb 12.7 (12.0-16.0) g/dl Hct 38.7 (37.0-47.0) % MCV 91.3 (80.0-98.0) fL MCH 30.0 (27.0-33.0) pg MCHC 32.8 (31.0-35.0) g/dl RDW 12.7 (11.0-16.0) % Plt Count 187 (160-400) X10*3/uL MPV 11.0 (9.4-12.3) fL Immature Gran % (Auto) 0.0 (0.0-0.4) % Neut % (Auto) 61.3 (45-73) % Lymph % (Auto) 26.4 (20-40) % [place] % (Auto) 8.0 (2-11) % Eos % (Auto) 3.8 (0-4) % Baso % (Auto) 0.5 (0-2) % Lymph # (Auto) 1.1 L (1.2-4.9) X10*3/uL [place] # (Auto) 0.3 (0.1-1.2) X10*3/uL Eos # (Auto) 0.2 (0.0-0.4) X10*3/uL Baso # (Auto) 0.0 (0.0-0.2) X10*3/uL Abs Immat Gran (auto) 0.00 (0.00-0.03) X10*3/uL Absolute Neuts (auto) 2.6 (2.0-8.3) x10*3/uL Absolute Nucleated RBC 0.000 (0.0-0.012) X10*3/uL Nucleated RBC % (auto) 0.0 (0.0-0.2) /100WBC Sodium 140 (135-145) mmol/L Potassium 4.9 D (3.3-5.1) mmol/L Chloride 108 (96-108) mmol/L Carbon Dioxide 27 (22-29) mmol/L Anion Gap 10 L (12-20) BUN 9 (9-16) mg/dL Creatinine 0.77 (0.5-1.4) mg/dL Estim Creat Clear Calc 53.6 Estimated GFR > 60 Random Glucose 88 (60-115) mg/dL Calcium 9.5 (8.4-10.2) mg/dL Total Bilirubin 0.3 (0.0-1.0) mg/dL AST 25 (5-31) U/L ALT 21 (0-31) U/L Alkaline Phosphatase 58 (39-117) U/L Total Protein 6.9 (6.5-8.0) g/dL Albumin 3.9 (3.5-5.0) g/dL Influenza Type A (PCR) NEGATIVE (Negative) Influenza Type B (PCR) NEGATIVE (Negative) RSV RNA Qual (PCR) NEGATIVE (Negative) SARS-CoV-2 RNA (RT-PCR) NEGATIVE (Negative) Independent Interpretation I performed an independent interpretation of an: CT Scan Interpretation: CT head notable for no acute intracranial abnormality. Radiology Impression Discussion of test interpretation with radiology: I have reviewed the radiologist's reading. Radiologist Impression: CT/CT head/brain wo IV con IMPRESSION: No acute intracranial abnormality including hemorrhage, mass effect, hydrocephalus, or acute territorial edematous infarction. Electronically signed by: Tyshawn Jimenez MD 06/03/2024 01:50 PM EDT External Record Review External record reviewed: Inpatient record, Office record and Outpatient record Discharge Plan Discharge Clinical Impression: Headache Patient Disposition: Still a Patient Instructions: Acute Headache (DC) Additional Instructions: You have been evaluated in the emergency department today for headache. Your evaluation did not show evidence of medical conditions requiring emergent intervention at this time, and your pain improved with medication in the ED. We recommend you take Tylenol 650 mg every 6 hours as needed for pain. Please follow-up with your primary care provider within 2 days. We also recommend following up with your neurologist. Return to the emergency department if you experience worsening or uncontrolled pain, vision changes, recurrent vomiting, difficulty with normal activities, abnormal behavior, difficulty walking, numbness, weakness, or any other concerning symptoms. Prescriptions: No Action (DME) compress.stocking,knee,reg,med Misc See Rx Instructions .Route Qty: 2 0RF Rx Instructions: As directed albuterol sulfate [Ventolin HFA] 90 mcg/actuation HFA aerosol inhaler 2 puff inhalation Q6H PRN (Reason: shortness of breath or wheezing) 30 Days Qty: 8 2RF (DME) Shower Chair Misc See Rx Instructions .Route Qty: 1 0RF Rx Instructions: As directed (DME) Grab bar Misc See Rx Instructions .Route Qty: 2 0RF Rx Instructions: As directed (DME) toilet frame See Rx Instructions .Route .MEDSUPPLY Qty: 1 0RF Rx Instructions: As directed (DME) handheld showerhead See Rx Instructions .Route .MEDSUPPLY Qty: 1 0RF Rx Instructions: As directed (DME) Ultra-Light Rollator Misc See Rx Instructions .Route Qty: 1 0RF Rx Instructions: As directed (DME) underpads [Bed Underpads] Pad See Rx Instructions .Route Qty: 100 6RF Rx Instructions: As directed (DME) incontinence pads regular See Rx Instructions .Route .MEDSUPPLY Qty: 240 6RF Rx Instructions: As directed Eliquis 5 mg tablet 5 mg PO BID Qty: 60 7RF calcium carbonate-vitamin D3 [Calcium 500 With D] 500 mg-10 mcg (400 unit) tablet 1 tab PO BID 90 Days Qty: 180 2RF albuterol sulfate 90 mcg/actuation HFA aerosol inhaler 2 puff inhalation Q4-6H PRN (Reason: cough) Qty: 8.5 0RF pantoprazole 40 mg tablet,delayed release (DR/EC) 40 mg PO DAILY Qty: 30 2RF Rx Instructions: take one tablet half an hour before breakfast famotidine 40 mg tablet 40 mg PO BEDTIME Qty: 30 3RF fluticasone propionate 50 mcg/actuation spray,suspension 1 spray intranasal DAILY PRN (Reason: Allergy Symptoms) donepezil 10 mg tablet 10 mg PO DAILY memantine 5 mg tablet 5 mg PO BID acetaminophen 650 mg tablet extended release 650 mg PO Q8H PRN (Reason: pain) azithromycin 250 mg tablet 250 mg PO DAILY 4 Days Qty: 4 0RF Rx Instructions: start on day 2 of therapy prednisone 20 mg tablet 20 mg PO DAILY 4 Days Qty: 4 0RF Rx Instructions: Start 01/17/2024 lisinopril 40 mg tablet 40 mg PO DAILY Qty: 90 3RF diclofenac sodium [Voltaren Arthritis Pain] 1 % gel 4 g topical QID PRN (Reason: pain (scale score 7-10)) Qty: 100 0RF Rx Instructions: apply to shoulders, low back pain meclizine 25 mg tablet 25 mg PO BID PRN (Reason: dizziness) Qty: 30 0RF cholecalciferol (vitamin D3) 25 mcg (1,000 unit) capsule 25 mcg PO DAILY aspirin [Enteric Coated Aspirin] 81 mg tablet,delayed release (DR/EC) 81 mg PO DAILY metoprolol succinate [Toprol XL] 50 mg tablet extended release 24 hr 50 mg PO BID 30 Days Qty: 60 5RF sertraline 25 mg tablet See Rx Instructions PO DAILY Qty: 60 6RF Rx Instructions: 1 tabs fro 4 weeks then 2 tabs qd orally daily; torsemide 10 mg tablet 10 mg PO DAILY atorvastatin 40 mg tablet 40 mg PO BEDTIME Qty: 90 1RF budesonide 0.5 mg/2 mL suspension for nebulization 0.5 mg inhalation DAILY 30 Days Qty: 60 2RF ipratropium-albuterol 0.5 mg-3 mg(2.5 mg base)/3 mL solution for nebulization 3 ml inhalation DAILY 30 Days Qty: 90 6RF Referrals: Mira Martinez MD [Physician] - Print Language: Burmese
[2024-06-03 13:19] LABS: Basophils Percent Auto 0.5 % (0-2); Eosinophils Absolute Auto 0.2 X10*3/uL (0.0-0.4); Eosinophils Percent Auto 3.8 % (0-4); Hematocrit 38.7 % (37.0-47.0); Hemoglobin 12.7 g/dl (12.0-16.0); Lymphocytes Absolute Auto 1.1 X10*3/uL (1.2-4.9); Lymphocytes Percent Auto 26.4 % (20-40); MANUAL DIFF FLAG NO; Mean Corpuscular HGB Conc 32.8 g/dl (31.0-35.0); Mean Corpuscular Volume 91.3 fL (80.0-98.0); Monocytes Absolute Auto 0.3 X10*3/uL (0.1-1.2); Neutrophils Absolute Auto 2.6 x10*3/uL (2.0-8.3); Neutrophils Percent Auto 61.3 % (45-73); Platelet Count 187 X10*3/uL (160-400); Red Blood Count 4.24 X10*6/uL (4.20-5.50); Red Cell Distribution Width 12.7 % (11.0-16.0); White Blood Count 4.2 X10*3/uL (4.8-10.8)
[2024-06-03 13:42] LABS: Alanine Aminotransferase 21 U/L (0-31); Albumin Level 3.9 g/dL (3.5-5.0); Alkaline Phosphatase 58 U/L (39-117); Anion Gap 10 (12-20); Aspartate Amino Transferase 25 U/L (5-31); Bilirubin Total 0.3 mg/dL (0.0-1.0); Blood Urea Nitrogen 9 mg/dL (9-16); Calcium 9.5 mg/dL (8.4-10.2); Carbon Dioxide 27 mmol/L (22-29); Chloride 108 mmol/L (96-108); Creatinine Clr Calc Pharmacy 53.6; Estimated Glomerular Filt Rate > 60; Glucose Random 88 mg/dL (60-115); Potassium 4.9 mmol/L (3.3-5.1); Sodium 140 mmol/L (135-145); Total Protein 6.9 g/dL (6.5-8.0)
[2024-06-03 14:02] LABS: Influenza A PCR NEGATIVE (Negative); Influenza B PCR NEGATIVE (Negative); Resp Syncy Virus RNA Qual PCR NEGATIVE (Negative); SARS COV2 PCR INHOUSE NEGATIVE (Negative)
[2024-06-03 15:19] VITALS: BP 151/86; PULSE 67; RESP 16; TEMP 36.9; O2SAT 98
[2024-06-03] MEDS: Metoclopramide HCl 10 MG/2 ML VIAL IVPUSH (15:47)
[2024-06-03] MEDS: diphenhydrAMINE HCL 50 MG/ML VIAL 12.5 MG IVPUSH (15:47)
[2024-06-03] MEDS: 0.9 % Sodium Chloride 1,000 ML 999 ML IV (15:48)
[2024-06-03 17:38] VITALS: BP 151/86; PULSE 67; RESP 16; TEMP 36.9; O2SAT 98
== END 2024-06-03 17:38 | disposition home or self-care (01) ==
PROVIDERS: Registered Nurse Emergency; Emergency Provider Emergency Medicine; PCP Internal Medicine
DX: R51.9 Headache, unspecified (principal); I10 Essential (primary) hypertension; R29.700 NIHSS score 0; Z03.818 Encounter for observation for suspected exposure to other biological agents ruled out; J45.909 Unspecified asthma, uncomplicated; E78.5 Hyperlipidemia, unspecified; I48.91 Unspecified atrial fibrillation; Z86.73 Personal history of transient ischemic attack (TIA), and cerebral infarction without residual deficits; Z79.02 Long term (current) use of antithrombotics/antiplatelets; Z79.899 Other long term (current) drug therapy; Z79.01 Long term (current) use of anticoagulants
CPT/HCPCS: 0241U; 70450; 80053; 85025; 96374; 96375; 99283; 99284; J1200; J2765

== ENCOUNTER 2024-07-11 11:53 | Outpatient (AMB) | payer OTHER, SELFPAY ==
[2024-07-11 12:03] VITALS: BP 124/80; PULSE 64; O2SAT 97; BMI 24.4
--- NOTE | 2024-07-11 12:03 | MHC.PC.OV ---
Vital Signs 07/11/24 12:03 Height 5 ft 4 in Weight 142 lb BMI 24.4 BP 124/80 Blood Pressure Location Lt brachial Position Sitting Pulse 64 Pulse Source Pulse Oximeter Pulse Oximetry (%) 97 Oxygen Delivery Method Room Air Intake Visit Reasons: Cataract and 08/08 lt/ bp Waterproofing Mixer Required: No Accompanied by: Self / Same As Patient Allergies oxycodone [From Percocet] Allergy (Intermediate, Verified 07/11/24 12:19) Agitated Medication List - Last Reconciled 07/11/24 by Yeny Rosenthal MD acetaminophen ER 650 mg PO Q8H PRN albuterol sulfate 90 mcg/actuation 2 puffs inhalation Q4-6H PRN apixaban (Eliquis) 5 mg PO BID aspirin (Enteric Coated Aspirin) 81 mg PO DAILY atorvastatin 40 mg PO BEDTIME budesonide 0.5 mg (2 mL) inhalation DAILY 30 days calcium carbonate-vitamin D3 500 mg-10 mcg (400 unit) (Calcium 500 With D) 1 tab PO BID 90 days cholecalciferol (vitamin D3) 25 mcg PO DAILY compress.stocking,knee,reg,med As directed diclofenac sodium 1% (Voltaren Arthritis Pain) 4 grams topical QID PRN donepezil 10 mg PO DAILY famotidine 40 mg PO BEDTIME fluticasone propionate 50 mcg/actuation 1 spray intranasal DAILY PRN Grab bar As directed [handheld showerhead As directed] [incontinence pads As directed] ipratropium-albuterol 0.5 mg-3 mg(2.5 mg base)/3 mL 3 mL inhalation DAILY 30 days lisinopril 40 mg PO DAILY meclizine 25 mg PO BID PRN memantine 5 mg PO BID metoprolol succinate ER (Toprol XL) 50 mg PO BID 30 days pantoprazole 40 mg PO DAILY sertraline 1 tabs fro 4 weeks then 2 tabs qd orally daily; Shower Chair As directed [toilet frame As directed] torsemide 10 mg PO DAILY underpads (Bed Underpads) As directed Ventolin HFA 90 mcg/actuation (albuterol sulfate) 2 puffs inhalation Q6H PRN 30 days NS walker (Ultra-Light Rollator misc) As directed Tobacco use date assessed: 10/20/23 Fall risk assessment: No Falls in past year Last assessed Fall Risk: 07/11/24 Dental Screening Dental Screen Date: 12/22/23 HPI HPI Comments History of Present Illness Details This is a 78-year-old female with hypertension, cognitive impairment and paroxysmal atrial fibrillation that comes today for preop evaluation for cataract extraction and intraocular lens implant in which the 1st eye is scheduled for 08/02/2024. Labs and EKG are still pending. Has 4-7 Mets of ADLs. Blood pressure stable. On chronic anticoagulation for atrial fibrillation. Cognitive impairment is follow by Neurology and today she is awake, alert and oriented to time, person and place. No chest pain or shortness on breath. [facility] Medical History (Updated 07/11/24 @ 12:25 by Yeny Rosenthal MD) Depression Hypersomnia Snoring Cognitive impairment History of CVA (cerebrovascular accident) Afib Acute CVA (cerebrovascular accident) IBS (irritable bowel syndrome) Abdominal hyperesthesia Dyspepsia Osteoarthritis of lumbar spine Scoliosis GERD (gastroesophageal reflux disease) HTN (hypertension) Surgical History (Updated 07/11/24 @ 12:24 by Yeny Rosenthal MD) Status post ablation of incompetent vein using laser (06/12/22) Hx of hysterectomy H/O oophorectomy H/O bilateral breast reduction surgery Family History Son HTN (hypertension) Father No problems noted. Mother No problems noted. Social History Household Members: Spouse Housing: House Are you a primary urgent care physician to a significant other at home: No Do you presently have visiting nurse or other home services: No Alcohol intake: never Patient Tobacco Use Status: Never used Tobacco e-Cigarette/Vaping Use: Never Used Second Hand Smoke Exposure: No Advance Directives Date on File: 08/13/21 service: No Current occupational status: disabled Cognitive needs: No Hearing needs: No Vision needs: Yes (Glasses) Questionnaire Thrive Questionnaire Date Thrive assessed: 12/22/23 SINCERE-7 AMB Questionnaire SINCERE-7 Date SINCERE - 7 assessed: 12/22/23 Source: Developed by Drs. Jacinto Yee, Lucia Garcia, Rigoberto Love and colleagues, with an educational jovani from [employer]. Review of Systems Const All systems reviewed & are unremarkable except as noted in HPI and below Card Denies chest pain at rest, Denies chest pain with activity, Denies edema, Denies irregular heart rhythm, Denies claudication, Denies dyspnea, Denies dyspnea on exertion, Denies orthopnea, Denies paroxysmal nocturnal dyspnea and Denies slow heart rate Resp Denies cough, Denies dyspnea and Denies dyspnea on exertion GI Denies abdominal pain, Denies change in bowel habits, Denies excessive flatus, Denies nausea and Denies vomiting Denies urinary incontinence, Denies urinary hesitancy and Denies urinary urgency Musc Denies abnormal gait, Denies atrophy, Denies deformity and Denies limited range of motion Skin/Breast Denies bleeding lesions, Denies changing lesions and Denies rash Neuro Denies abnormal gait and Denies lack of coordination Physical exam (Primary Care) Vital Signs: Last Vital Signs Pulse 64 07/11/24 12:03 BP 124/80 07/11/24 12:03 Pulse Ox 97 07/11/24 12:03 Oxygen Delivery Method Room Air 07/11/24 12:03 BMI result Body Mass Index 24.4 Tobacco/Smoking Status: Tobacco use Status Tobacco use date assessed 10/20/23 07/11/24 12:07 Patient Tobacco Use Status Never used Tobacco 07/11/24 12:07 e-Cigarette/Vaping Use Never Used 07/11/24 12:07 Thrive Assessment: Date of Thrive Assessment Date Thrive assessed 12/22/23 07/11/24 12:07 Const Orientation/consciousness: patient oriented x3 Resp Effort & Inspection: normal respiratory effort Auscultation: clear to auscultation bilaterally Cardio Jugular venous distension: no JVD Rate: regular rate Rhythm: regular rhythm Heart sounds: S1 normal heart sound present and S2 normal heart sound present Neuro General: patient oriented x3 and no focal motor deficits Extrem General: Yes full ROM Office Procedures Flu Questionnaire Does the patient have a severe egg allergy?: No Immunizations Fluarix Triv [id number] (PF) 45 mcg (15 mcg x 3)/0.5 mL IM syringe Performing Provider: Yeny Rosenthal MD [facility] Documented (not given) by: JOCELYNE Stout on 10/08/24 12:15 Reason Not Given: Received Previously Coding Level of Care Code Est Pt Level 4 (22187) Complex EM visit Add On G2211 Diagnoses Pre-op evaluation Z01.818 Essential hypertension I10 PAF (paroxysmal atrial fibrillation) I48.0 Cognitive impairment R41.89 Time Spent (min) 22 Assessment & Plan Assessment & Plan (1) Pre-op evaluation: Code(s): Z01.818 - Encounter for other preprocedural examination Category: Medical Plan: EKG and labs pending for medical clearance. (2) Essential hypertension: Code(s): I10 - Essential (primary) hypertension Category: Medical Plan: Continue lisinopril. Blood pressure goal is equal or less than 130/80. (3) PAF (paroxysmal atrial fibrillation): Code(s): I48.0 - Paroxysmal atrial fibrillation Category: Medical Plan: Continue chronic anticoagulation. The goal is heart rate control. Follow-up with Cardiology. 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 Follow-up with Neurology. Orders: Orders Influenza [id number] Immunization Today Z23 - Encounter for immunization ECG 12 lead EKG Today Z01.818 - Encounter for other preprocedural examination Lipid Panel Today E78.5 - Hyperlipidemia, unspecified Vitamin D 25-OH Total Today E55.9 - Vitamin D deficiency, unspecified Comprehensive [employer]. Panel Fast Today Z01.818 - Encounter for other preprocedural examination Complete Blood Count Auto Diff Today R13.19 - Other dysphagia
== END 2024-07-11 12:29 | disposition home or self-care (01) ==
PROVIDERS: PCP Internal Medicine; Visit Provider Internal Medicine
DX: Z01.818 Encounter for other preprocedural examination (principal); I10 Essential (primary) hypertension; I48.0 Paroxysmal atrial fibrillation; R41.89 Other symptoms and signs involving cognitive functions and awareness; Z23 Encounter for immunization

== ENCOUNTER → 2024-07-11 11:53 | Outpatient (BNVA) | payer OTHER, SELFPAY | PROVIDERS: PCP Internal Medicine; Visit Provider Internal Medicine | DX: Z01.818 Encounter for other preprocedural examination (principal); I10 Essential (primary) hypertension; I48.0 Paroxysmal atrial fibrillation; R41.89 Other symptoms and signs involving cognitive functions and awareness | CPT/HCPCS: 90471; 99212 ==

== ENCOUNTER 2024-07-12 10:39 | Outpatient (REF) | payer OTHER, SELFPAY ==
--- NOTE | 2024-07-12 10:57 | ECG_ITS ---
Test Reason : PRE OP Blood Pressure : / mmHG Vent. Rate : 059 BPM Atrial Rate : 059 BPM P-R Int : 188 ms QRS Dur : 084 ms QT Int : 460 ms P-R-T Axes : 057 029 065 degrees QTc Int : 455 ms Sinus bradycardia Possible Left atrial enlargement Borderline ECG When compared with ECG of 05-SEP-2023 18:33, No significant change was found Referred By: Yeny Rosenthal Electronically Signed By:IRVIN NICOLAS MD
[2024-07-12 11:10] LABS: MANUAL DIFF FLAG NO
[2024-07-12 11:54] LABS: Basophils Percent Auto 0.4 % (0-2); Eosinophils Absolute Auto 0.1 X10*3/uL (0.0-0.4); Eosinophils Percent Auto 2.6 % (0-4); Hematocrit 40.5 % (37.0-47.0); Hemoglobin 13.1 g/dl (12.0-16.0); Imm Gran Abs Auto 0.02 X10*3/uL (0.00-0.03); Imm Gran Pct Auto 0.4 % (0.0-0.4); Lymphocytes Absolute Auto 1.1 X10*3/uL (1.2-4.9); Lymphocytes Percent Auto 22.3 % (20-40); Mean Corpuscular HGB Conc 32.3 g/dl (31.0-35.0); Mean Corpuscular Hemoglobin 29.5 pg (27.0-33.0); Mean Corpuscular Volume 91.2 fL (80.0-98.0); Mean Platelet Volume 11.9 fL (9.4-12.3); Monocytes Absolute Auto 0.4 X10*3/uL (0.1-1.2); Monocytes Percent Auto 7.4 % (2-11); Neutrophils Absolute Auto 3.3 x10*3/uL (2.0-8.3); Neutrophils Percent Auto 66.9 % (45-73); Platelet Count 211 X10*3/uL (160-400); Red Blood Count 4.44 X10*6/uL (4.20-5.50); Red Cell Distribution Width 12.8 % (11.0-16.0)
[2024-07-12 12:24] LABS: Alanine Aminotransferase 25 U/L (0-31); Albumin Level 4.1 g/dL (3.5-5.0); Alkaline Phosphatase 60 U/L (39-117); Anion Gap 9 (12-20); Aspartate Amino Transferase 26 U/L (5-31); Bilirubin Total 0.5 mg/dL (0.0-1.0); Blood Urea Nitrogen 23 mg/dL (9-16); Calcium 9.4 mg/dL (8.4-10.2); Carbon Dioxide 29 mmol/L (22-29); Chloride 106 mmol/L (96-108); Cholesterol 166 mg/dL (<200); Estimated Glomerular Filt Rate > 60; Glucose Fasting 90 mg/dL (60-99); HDL Cholesterol 51 mg/dL (>40); LDL Cholesterol Calculated 105 mg/dL (<100); Potassium 4.3 mmol/L (3.3-5.1); Sodium 140 mmol/L (135-145); Total Protein 7.1 g/dL (6.5-8.0); Triglycerides 51 mg/dL (<150)
[2024-07-12 12:44] LABS: Vitamin D 25-OH Total 35.9 ng/mL (>30)
== END 2024-07-12 10:40 | disposition home or self-care (01) ==
LOC: HO.LAB 10:39
PROVIDERS: PCP Internal Medicine; Visit Provider Internal Medicine
DX: Z01.818 Encounter for other preprocedural examination (principal); E55.9 Vitamin D deficiency, unspecified; E78.5 Hyperlipidemia, unspecified; R13.19 Other dysphagia
CPT/HCPCS: 36415; 80053; 80061; 82306; 85025; 93005

== ENCOUNTER → 2024-07-12 10:57 | Outpatient (BNV) | payer OTHER, SELFPAY | PROVIDERS: PCP Internal Medicine; Visit Provider Internal Medicine Cardiovascular Disease | DX: R00.1 Bradycardia, unspecified (principal) | CPT/HCPCS: 93010 ==

== ENCOUNTER 2024-08-22 10:36 | Day surgery (SDC) | payer OTHER, SELFPAY ==
--- NOTE | 2024-08-21 13:29 | P.CONAN_ITS ---
Documented by User: Astrid June NP 08/21/24 13:32 HPI - Anesthesia Eval Consult details Narrative: 78yo F for Upper Endoscopy with Balloon Dilitation Eliquis for afib 07/2024 PCP clearance for cataract PMFSH Active Problems Active Problems: All Active Problems Pre-op evaluation (Acute) Difficulty swallowing (Acute) Hospital discharge follow-up (Acute) CAD (coronary artery disease) (Acute) Depression (Acute) Hypersomnia (Acute) Snoring (Acute) Cognitive impairment (Acute) GERD (gastroesophageal reflux disease) (Acute) COVID-19 (Acute) Vocal cord dysfunction (Acute) Foot deformity (Acute) Urinary incontinence (Acute) New daily persistent headache (Acute) Lymphedema (Acute) Physical exam (Acute) Asthma (Acute) Varicose veins of right lower extremity with inflammation (Acute) Heel pain, bilateral (Acute) Bilateral lower extremity edema (Acute) H/O: CVA (cerebrovascular accident) (Acute) Dizziness (Acute) Essential hypertension (Acute) Lumbar radiculopathy (Acute) Post-menopausal (Acute) Impacted molar (Acute) Atherosclerotic cardiovascular disease (Acute) PAF (paroxysmal atrial fibrillation) (Acute) HTN (hypertension) (Acute) Shoulder pain, bilateral (Acute) Hypercholesteremia (Acute) Chronic pelvic pain syndrome in female (Acute) Low back pain of over 3 months duration (Acute) Abdominal pain (Acute) Vertigo (Acute) Degenerative disc disease, cervical (Acute) Bone spur of acromioclavicular joint (Acute) Screening for osteoporosis (Acute) Arm pain (Acute) Cervical pain (Acute) Screening for breast cancer (Acute) Petechiae (Acute) Afib (Acute) Cerebellar infarct (Acute) Pulmonary nodules (Acute) Dyspnea on exertion (Acute) Chronic cough (Acute) Monoclonal gammopathy (Acute) Polyarthralgia (Acute) Past Medical History Medical History Depression Hypersomnia Snoring Cognitive impairment History of CVA (cerebrovascular accident) Afib Acute CVA (cerebrovascular accident) IBS (irritable bowel syndrome) Abdominal hyperesthesia Dyspepsia Osteoarthritis of lumbar spine Scoliosis GERD (gastroesophageal reflux disease) HTN (hypertension) Family History Family History Son HTN (hypertension) Father No problems noted. Mother No problems noted. Surgical History Surgical History Status post ablation of incompetent vein using laser (06/12/22) Hx of hysterectomy H/O oophorectomy H/O bilateral breast reduction surgery Social History Social History Household Members: Spouse Housing: House Are you a primary child care director to a significant other at home: No Do you presently have visiting nurse or other home services: No Alcohol intake: never Patient Tobacco Use Status: Never used Tobacco e-Cigarette/Vaping Use: Never Used Second Hand Smoke Exposure: No Use of substances other than those prescribed or required for medical reasons: No Advance Directives: No Advance Directives Information Provided: Yes Advance Directives Date on File: 08/13/21 Recently lost weight without trying: No Nutrition Risks: No Nutritional Risk Patient : No service: No Current occupational status: disabled Cognitive needs: No Hearing needs: No Vision needs: Yes (Glasses) Meds Allergies Allergy/AdvReac Type Severity Reaction Status Date / Time oxycodone [From Percocet] Allergy Intermediate Agitated Verified 07/11/24 12:19 Home Medications ?Medication ?Instructions ?Recorded ?Confirmed ?Last Taken ?Type aspirin 81 mg tablet,delayed 81 mg PO DAILY 12/05/20 07/11/24 08/18/24 History release (Enteric Coated Aspirin) cholecalciferol (vitamin D3) 25 25 mcg PO DAILY 12/05/20 07/11/24 08/09/23 History mcg (1,000 unit) capsule fluticasone propionate 50 1 spray intranasal DAILY PRN 08/13/21 07/11/24 08/09/23 History mcg/actuation nasal Allergy Symptoms spray,suspension acetaminophen 650 mg 650 mg PO Q8H PRN pain 08/09/23 07/11/24 Unknown History tablet,extended release donepezil 10 mg tablet 10 mg PO DAILY 08/09/23 07/11/24 08/09/23 History memantine 5 mg tablet 5 mg PO BID 08/09/23 07/11/24 08/09/23 History torsemide 10 mg tablet 10 mg PO DAILY 01/11/24 07/11/24 Unknown History Exam Pertinent Lab Results Pertinent Lab Results: Laboratory Tests 07/12/24 11:09 WBC 5.0 Hgb 13.1 Hct 40.5 Plt Count 211 Sodium 140 Potassium 4.3 Chloride 106 Carbon Dioxide 29 BUN 23 H Creatinine 0.82 Narrative Narrative: EKG 07/2024 Vent. Rate : 059 BPM Atrial Rate : 059 BPM P-R Int : 188 ms QRS Dur : 084 ms QT Int : 460 ms P-R-T Axes : 057 029 065 degrees QTc Int : 455 ms Sinus bradycardia Possible Left atrial enlargement Borderline ECG When compared with ECG of 05-SEP-2023 18:33, No significant change was found Assessment and Plan Assessment Anesthesia Assessment: Chart Reviewed Documented by User: Britney Sullivan MD 08/22/24 12:40 PMFSH Active Problems Active Problems: All Active Problems Pre-op evaluation (Acute) Difficulty swallowing (Acute) Hospital discharge follow-up (Acute) CAD (coronary artery disease) (Acute) Depression (Acute) Hypersomnia (Acute) Snoring (Acute) Cognitive impairment (Acute) GERD (gastroesophageal reflux disease) (Acute) COVID-19 (Acute)m Vocal cord dysfunction (Acute) Foot deformity (Acute) Urinary incontinence (Acute) New daily persistent headache (Acute) Lymphedema (Acute) Physical exam (Acute) Asthma (Acute) Varicose veins of right lower extremity with inflammation (Acute) Heel pain, bilateral (Acute) Bilateral lower extremity edema (Acute) H/O: CVA (cerebrovascular accident) (Acute) Dizziness (Acute) Essential hypertension (Acute) Lumbar radiculopathy (Acute) Post-menopausal (Acute) Impacted molar (Acute) Atherosclerotic cardiovascular disease (Acute) PAF (paroxysmal atrial fibrillation) (Acute) HTN (hypertension) (Acute) Shoulder pain, bilateral (Acute) Hypercholesteremia (Acute) Chronic pelvic pain syndrome in female (Acute) Low back pain of over 3 months duration (Acute) Abdominal pain (Acute) Vertigo (Acute) Degenerative disc disease, cervical (Acute) Bone spur of acromioclavicular joint (Acute) Screening for osteoporosis (Acute) Arm pain (Acute) Cervical pain (Acute) Screening for breast cancer (Acute) Petechiae (Acute) Afib (Acute) Cerebellar infarct (Acute) Pulmonary nodules (Acute) Dyspnea on exertion (Acute) Chronic cough (Acute) Monoclonal gammopathy (Acute) Polyarthralgia (Acute) Past Medical History Medical History Depression Hypersomnia Snoring Cognitive impairment History of CVA (cerebrovascular accident) Afib Acute CVA (cerebrovascular accident) IBS (irritable bowel syndrome) Abdominal hyperesthesia Dyspepsia Osteoarthritis of lumbar spine Scoliosis GERD (gastroesophageal reflux disease) HTN (hypertension) Family History Family History Son HTN (hypertension) Father No problems noted. Mother No problems noted. Surgical History Surgical History Status post ablation of incompetent vein using laser (06/12/22) Hx of hysterectomy H/O oophorectomy H/O bilateral breast reduction surgery History of Problems with Anesthesia: No Social History Social History Household Members: Spouse Housing: House Are you a primary child care director to a significant other at home: No Do you presently have visiting nurse or other home services: No Alcohol intake: never Patient Tobacco Use Status: Never used Tobacco e-Cigarette/Vaping Use: Never Used Second Hand Smoke Exposure: No Use of substances other than those prescribed or required for medical reasons: No Advance Directives: No Advance Directives Information Provided: Yes Advance Directives Date on File: 08/13/21 Recently lost weight without trying: No Nutrition Risks: No Nutritional Risk Patient : No service: No Current occupational status: disabled Cognitive needs: No Hearing needs: No Vision needs: Yes (Glasses) Meds Allergies Allergy/AdvReac Type Severity Reaction Status Date / Time oxycodone [From Percocet] Allergy Intermediate Agitated Verified 07/11/24 12:19 Home Medications ?Medication ?Instructions ?Recorded ?Confirmed ?Last Taken ?Type aspirin 81 mg tablet,delayed 81 mg PO DAILY 12/05/20 07/11/24 08/18/24 History release (Enteric Coated Aspirin) cholecalciferol (vitamin D3) 25 25 mcg PO DAILY 12/05/20 07/11/2408/09/23 History mcg (1,000 unit) capsule fluticasone propionate 50 1 spray intranasal DAILY PRN 08/13/21 07/11/24 08/09/23 History mcg/actuation nasal Allergy Symptoms spray,suspension acetaminophen 650 mg 650 mg PO Q8H PRN pain 08/09/23 07/11/24 Unknown History tablet,extended release donepezil 10 mg tablet 10 mg PO DAILY 08/09/23 07/11/24 08/09/23 History memantine 5 mg tablet 5 mg PO BID 08/09/23 07/11/24 08/09/23 History torsemide 10 mg tablet 10 mg PO DAILY 01/11/24 07/11/24 Unknown History Exam Airway Mallampati Class: II TM Dist: >3cm Neck ROM: Full Loose/Missing/Broken Teeth: No Heart: RRR Lungs: CTA Assessment and Plan Assessment Anesthesia Assessment: Anesthesia Plan Discussed Final Anesthetic Review History of Problems with Anesthesia: No NPO: Yes ASA Class: III Final Preanesthetic Review: Meds/Allgs Chart Reviewed, Consent Obtained/Reviewed and Anes Risks/Benef Reviewed Patient Risk: Intermediate Procedure Risk: Intermediate Anesthetic Plan Anesthetic Plan: MAC: Disposition: Standard PACU
[2024-08-22 11:47] VITALS: BMI 25.5
[2024-08-22 12:07] VITALS: BP 175/84; PULSE 76; RESP 16; TEMP 36.4; O2SAT 98
[2024-08-22] MEDS: Lactated Ringers 1,000 ML 100 ML IVCONT (12:19)
--- NOTE | 2024-08-22 12:33 | P.HPSUR_ITS ---
Pre-Procedural Eval Section A - 24 Hr Update-Section A only Date of Service: 08/22/24 Section B - Complete if H&P > 30 days Chief Complaint: Dysphagia, Relevant Family History (Specify if Yes): No Relevant Social History: None Present Medications: see Short Stay Collaborative assessment Medical History: Significant History (Depression Hypersomnia Snoring Cognitive impairment History of CVA (cerebrovascular accident) Afib Acute CVA (cerebrovascular accident) IBS (irritable bowel syndrome) Abdominal hyperesthesia Dyspepsia Osteoarthritis of lumbar spine Scoliosis GERD (gastroesophageal reflux disease) HTN (hypertension)) History of Previous Operations: Relevant previous surgery/procedure and date(s) (Status post ablation of incompetent vein using laser (06/12/22) Hx of hys terectomy H/O oophorectomy H/O bilateral breast reduction surgery) Allergies: Allergies Allergy/AdvReac Type Severity Reaction Status Date / Time oxycodone [From Percocet] Allergy Intermediate Agitated Verified 07/11/24 12:19 Review of Systems Sugical H&P ROS: Negative: Constitution, Cardiovascular, Respiratory, Neurological, Psychiatric, Hem-Onc, Allergic/Immunologic, Gastrointestinal, Genitourinary, Musculoskeletal, Integumentary, Endocrine and Eyes/Ears/Nose/Throat Exam Surgical H&P Exam: Normal: HEENT, Normal: Heart, Normal: Lungs, Normal: Extremities, Normal: Abdomen, Normal: Skin and Normal: Neurological Plan Diagnosis/Plan: Unchanged I have reviewed the history and physical and performed a pertinent physical examination on my patient. No changes have occurred unless specified. Time Spent With Patient Time: Total time managing care of this patient today ____ minutes.
--- NOTE | 2024-08-22 12:54 | W.PM.OPN ---
Operative Note Operative Note Date of Service: 08/22/24 Narrative: Procedure Description: EGD Indication: dysphagia Anesthesia: MAC FLEXIBLE TRANSORAL UPPER GASTROINTESTINAL ENDOSCOPY UPPER ENDOSCOPY Consent: Indications for the procedure and potential complications of bleeding, perforation, reaction to medications and missed diagnosis were discussed with the patient and informed consent was obtained. Instrument: Olympus GIF H 190 J mid size upper endoscope Monitoring: Vital signs and clinical assessment, continuous EKG monitoring, Pulse oximetry, Carbon Dioxide monitoring and blood pressure monitoring were done throughout the procedure. Procedure: The patient was placed in the left lateral decubitis position and pre-procedure medications were administered and a bite block was placed. The endoscope was inserted into the mouth and advanced under direct vision to the third part of duodenum. A careful inspection was made as the upper endoscope was withdrawn including a retroflexed examination of the proximal stomach; Findings and interventions are described below. Findings: Larynx:normal Esophagus: GE junction at 36 cm, diaphragm hiatus at 36 cm, schatzki ring noted--bx taken from GEJ, distal and proximal areas, balloon dilation done to 20 mm at UES and LES-- no tears noted Stomach: patchy erythema . Biopsies were obtained. Grade 2 flap valve on retroflexed examination of the cardia. Duodenum: Normal bulb and descending duodenum, Intervention: Biopsies as noted above, balloon dilation Impression/Findings: gastritis schatzki ring PLAN: await bx, if H pylori pos then treat, can also consider PPI trial, if ongoing sx inspite of this then manometry GERD precautions
[2024-08-22 13:00] VITALS: BP 118/57; PULSE 75; RESP 18; TEMP 36.3; O2SAT 99
[2024-08-22 13:15] VITALS: BP 137/76; PULSE 74; RESP 16; O2SAT 97
[2024-08-22 13:30] VITALS: BP 118/57; PULSE 74; RESP 16; TEMP 36.3; O2SAT 97
== END 2024-08-22 14:32 | disposition home or self-care (01) ==
PROVIDERS: PCP Internal Medicine; Visit Provider Internal Medicine Gastroenterology
PROC: (CPT 43249; principal; 2024-08-22 12:50)
DX: K29.60 Other gastritis without bleeding (principal); K22.2 Esophageal obstruction; R13.10 Dysphagia, unspecified; K21.9 Gastro-esophageal reflux disease without esophagitis; I10 Essential (primary) hypertension; E78.00 Pure hypercholesterolemia, unspecified; I48.0 Paroxysmal atrial fibrillation; Z86.73 Personal history of transient ischemic attack (TIA), and cerebral infarction without residual deficits; Z79.82 Long term (current) use of aspirin; Z79.01 Long term (current) use of anticoagulants; Z79.02 Long term (current) use of antithrombotics/antiplatelets; Z79.899 Other long term (current) drug therapy
CPT/HCPCS: 43249; 43239; 88305; 88313; 88342; C1726; J2003; J2704

== ENCOUNTER → 2024-08-22 10:36 | Outpatient (BNV) | payer OTHER, SELFPAY | PROVIDERS: PCP Internal Medicine; Visit Provider Internal Medicine Gastroenterology | DX: R13.10 Dysphagia, unspecified (principal); K22.2 Esophageal obstruction; K29.70 Gastritis, unspecified, without bleeding | CPT/HCPCS: 43239; 43249 ==

== ENCOUNTER 2024-09-05 09:58 | Outpatient (AMB) | payer OTHER, SELFPAY ==
[2024-09-05 10:03] VITALS: BP 136/92; PULSE 62; O2SAT 98; BMI 26.4
--- NOTE | 2024-09-05 10:03 | MHC.OFFVIS ---
Vital Signs 09/05/24 10:03 Height 5 ft 4 in Weight 153 lb 14.122 oz BMI 26.4 BP 136/92 H Blood Pressure Location Rt brachial Position Sitting Pulse 62 Pulse Source Pulse Oximeter Pulse Oximetry (%) 98 Oxygen Delivery Method Room Air Intake Visit Reasons: S/P EGD with dilation; Dr. Head Intake Note: Relevant Flags or Indicators ? Requires Retail Customer Service Representative? Y Becca presents in office today for a scheduled s/p FUV. Recent EGD w/ TH Relevant GI Sx or new concerns per pt? None Retail Customer Service Representative Required: Yes Retail Customer Service Representative Services: Retail Customer Service Representative Present Retail Customer Service Representative Name: Becca [phone] Information Interpreted: non-clinical & clinical Accompanied by: Self / Same As Patient Allergies oxycodone [From Percocet] Allergy (Intermediate, Verified 09/05/24 10:04) Agitated HPI HPI S/P EGD with dilation; Dr. Head: Details: LAST VISIT Difficulty swallowing Postprandial epigastric pain Postprandial abdominal bloating Diarrhea Chronic idiopathic constipation Plan Continue PPI and H2 jelani. Continue avoiding dietary triggers and late night snacking. Patient will be scheduled for upper endoscopy. Message sent to office machine punch operator and DIRECTOR PHARMACOLOGY in cardiovascular practice to see if patient can be cleared sooner. Right now be scheduling her for August. Lab results as well as barium swallow results discussed with patient. Patient is agreeable to this plan and verbalizes understanding of instructions. She was given the opportunity to ask questions and all questions answered. ? UPPER ENDOSCOPY Findings: Larynx:normal Esophagus: GE junction at 36 cm, diaphragm hiatus at 36 cm, schatzki ring noted--bx taken from GEJ, distal and proximal areas, balloon dilation done to 20 mm at UES and LES-- no tears noted Stomach: patchy erythema . Biopsies were obtained. Grade 2 flap valve on retroflexed examination of the cardia. Duodenum: Normal bulb and descending duodenum, Intervention: Biopsies as noted above, balloon dilation Impression/Findings: gastritis schatzki ring PLAN: await bx, if H pylori pos then treat, can also consider PPI trial, if ongoing sx inspite of this then manometry GERD precautions PATHOLOGY RESULTS Diagnosis A. Stomach, biopsy: Oxyntic mucosa with mild chronic inactive inflammation; no Helicobacter organisms seen. B. GE junction, biopsy: - Squamous epithelium within normal limits; no inflammation seen. - No glandular epithelium present. C. Esophagus, distal, biopsy: Squamous epithelium within normal limits; no inflammation seen. D. Esophagus, proximal, biopsy: Squamous epithelium within normal limits; no inflammation seen TODAY'S VISIT Patient is here today for follow-up and to discuss upper endoscopy results. Patient had upper endoscopy and was found to have Schatzki ring, distal and proximal areas dilation to 20 mm. No tear seen afterwards. Patient tolerated procedure well. Denies any dyspepsia, dysphagia or odynophagia. Currently she is taking Nexium daily and her symptoms of acid reflux are suppressed. Patient also is taking famotidine at bedtime. Denies any nausea or vomiting. Patient denies any issues with procedure or with anesthesia. Stomach shows mild chronic inactive inflammation with no H pylori, no inflammation seen at the GE junction normal esophagus proximal and distal no inflammation seen. [facility] Medical History (Updated 09/21/24 @ 20:07 by Delaney Nicholas, [facility]) Schatzki's ring Depression Hypersomnia Snoring Cognitive impairment History of CVA (cerebrovascular accident) Afib Acute CVA (cerebrovascular accident) IBS (irritable bowel syndrome) Abdominal hyperesthesia Dyspepsia Osteoarthritis of lumbar spine Scoliosis GERD (gastroesophageal reflux disease) HTN (hypertension) Surgical History Status post ablation of incompetent vein using laser (06/12/22) Hx of hysterectomy H/O oophorectomy H/O bilateral breast reduction surgery Family History Son HTN (hypertension) Father No problems noted. Mother No problems noted. Social History Household Members: Spouse Housing: House Are you a primary adult live in caregiver to a significant other at home: No Do you presently have visiting nurse or other home services: No Alcohol intake: never Patient Tobacco Use Status: Never used Tobacco e-Cigarette/Vaping Use: Never Used Second Hand Smoke Exposure: No Advance Directives Date on File: 08/13/21 service: No Current occupational status: disabled Cognitive needs: No Hearing needs: No Vision needs: Yes (Glasses) Review of Systems Const Denies weight gain and Denies weight loss ENT Reports no additional complaints, Denies dysphagia and Denies odynophagia Card Reports no additional complaints Resp Reports no additional complaints GI Denies abdominal pain, Denies belching, Denies melena, Denies bloating, Denies change in bowel habits, Denies dysphagia, Denies excessive flatus, Denies dyspepsia, Denies heartburn, Denies diarrhea, Denies loose stools, Denies nausea, Denies odynophagia and Denies vomiting Musc Reports no additional complaints Neuro Reports no additional complaints Psych Reports no additional complaints Endo Reports no additional complaints Physical Exam Vital Signs: Last Vital Signs Pulse 62 09/05/24 10:03 BP 136/92 H 09/05/24 10:03 Pulse Ox 98 09/05/24 10:03 Oxygen Delivery Method Room Air 09/05/24 10:03 BMI result Body Mass Index 26.4 Const General: healthy appearing, no acute distress and well developed Nutritional Appearance: well nourished Orientation/consciousness: patient oriented x3 Resp Effort & Inspection: normal respiratory effort, able to speak in complete sentences, no tracheal deviation and symmetric chest movement Auscultation: clear to auscultation bilaterally Cardio Rate: regular rate GI Inspection: Yes normal to inspection and No distended Palpation (GI): Soft to palpation, not firm, nontender and No hepatosplenomegaly present Auscultation: normal bowel sounds General: Yes no CVA tenderness Back/Spine/Pelvis Back: no CVA tenderness Skin General skin exam: elasticity normal, turgor normal and dry skin Neuro General: patient oriented x3 Psych Appearance: grossly normal Mental Status: mental status grossly normal Assessment & Plan Assessment & Plan (1) Difficulty swallowing: Code(s): R13.10 - Dysphagia, unspecified Category: Medical Qualifiers: Dysphagia type: esophageal phase Qualified Code(s): R13.19 - Other dysphagia (2) GERD (gastroesophageal reflux disease): Code(s): K21.9 - Gastro-esophageal reflux disease without esophagitis Category: Medical Qualifiers: Esophagitis presence: without esophagitis Qualified Code(s): K21.9 - Gastro-esophageal reflux disease without esophagitis (3) Schatzki's ring: Code(s): K22.2 - Esophageal obstruction Category: Medical Plan Patient will continue taking pantoprazole in the morning and famotidine at bedtime. Avoid dietary triggers and late night snacking. Staying upright for minimum 3 hours after meals discussed with patient. Patient is feeling well right now, however if she will have trouble swallowing or have severe reflux will send her for manometry. I will see her in 3 months, sooner on as needed basis. She is agreeable to this plan and verbalizes understanding of instructions. She was given the opportunity to ask questions and all questions answered. Thank you for allowing me to participate in her care Coding Level of Care Code Est Pt Level 4 (87628) Complex EM visit Add On G2211 Diagnoses Esophageal dysphagia R13.19 Dysphagia type: esophageal phase Gastroesophageal reflux disease without esophagitis K21.9 Esophagitis presence: without esophagitis Schatzki's ring K22.2 Time Spent (min) 35 Comment 20 minutes spent with patient and additional 15 minutes spent reviewing her records
== END 2024-09-05 10:58 | disposition home or self-care (01) ==
PROVIDERS: PCP Internal Medicine; Visit Provider Nurse Practitioner Family
DX: R13.19 Other dysphagia (principal); K21.9 Gastro-esophageal reflux disease without esophagitis; K22.2 Esophageal obstruction
CPT/HCPCS: 99214; G2211

== ENCOUNTER → 2024-09-05 09:58 | Outpatient (BNVA) | payer OTHER, SELFPAY | PROVIDERS: PCP Internal Medicine; Visit Provider Nurse Practitioner Family | DX: K59.04 Chronic idiopathic constipation (principal); K22.2 Esophageal obstruction; R13.19 Other dysphagia; K21.9 Gastro-esophageal reflux disease without esophagitis | CPT/HCPCS: 99212 ==

== ENCOUNTER 2024-10-04 14:01 | Inpatient (IN) | payer OTHER, SELFPAY ==
[2024-10-04] VITALS (7 sets, daily range): BP systolic 149–190; BP diastolic 43–82; PULSE 63–78; RESP 16–20; TEMP 36.5–36.9; O2SAT 98–100; BMI 26.1
--- NOTE | ~2024-10-04 | CT_ITS ---
CLINICAL HISTORY: Rectal bleed on [facility] CT abdomen and pelvis with and with the IV contrast. COMPARISON: None FINDINGS: Minimal atelectasis along the lung bases. Cardiomegaly. No focal hepatic lesion. Normal gallbladder. Normal spleen. Normal pancreas. Normal adrenal glands. Symmetric renal enhancement. No hydronephrosis. Diffuse thickening of the mucosa of the distal transverse, descending and sigmoid colon. Moderate distal colonic diverticulosis without evidence of diverticulitis. Focus of increased attenuation within the lumen of the proximal sigmoid colon raises suspicion for source of bleed (series axial postcontrast/13, image 487). Normal appendix. No bowel obstruction. No mesenteric or retroperitoneal lymphadenopathy. Moderate aortoiliac atherosclerotic vascular calcifications. Normal appearance of the urinary bladder. No adnexal mass. Grade 1 anterolisthesis of L4 on L5, degenerative. Moderate spondylosis. No acute fracture. IMPRESSION: 1. Suspect source of active gastrointestinal bleed within the proximal sigmoid colon. 2. Colonic diverticulosis without evidence of diverticulitis. 3. Diffuse thickening of the mucosa of the distal transverse, descending and sigmoid colon suggestive of a colitis. This document has been electronically signed by: Duke Vazquez MD on 10/04/2024 19:58:33
--- NOTE | 2024-10-04 14:15 | ED.GENADULT ---
HPI - General Adult General Chief complaint: GI Bleed Stated complaint: blood in stools Time Seen by Provider: 10/04/24 17:09 Source: patient Mode of arrival: ambulatory Limitations: no limitations History of Present Illness ED Provider: HPI narrative: Patient's history of paroxysmal AFib on Eliquis, diverticulosis comes here with diarrhea with blood since last night about 6 bowel movements she had it mixed with blood bright red no blood clot also complaining of lower abdominal discomfort no fever no chills no nausea no vomiting Related Data Home Medications ?Medication ?Instructions ?Recorded ?Confirmed aspirin 81 mg tablet,delayed 81 mg PO DAILY 12/05/20 07/11/24 release (Enteric Coated Aspirin) cholecalciferol (vitamin D3) 25 25 mcg PO DAILY 12/05/20 07/11/24 mcg (1,000 unit) capsule fluticasone propionate 50 1 spray intranasal DAILY PRN 08/13/21 07/11/24 mcg/actuation nasal Allergy Symptoms spray,suspension acetaminophen 650 mg 650 mg PO Q8H PRN pain 08/09/23 07/11/24 tablet,extended release donepezil 10 mg tablet 10 mg PO DAILY 08/09/23 07/11/24 memantine 5 mg tablet 5 mg PO BID 08/09/23 07/11/24 torsemide 10 mg tablet 10 mg PO DAILY 01/11/24 07/11/24 Previous Rx's ?Medication ?Instructions ?Recorded diclofenac sodium 1 % topical gel 4 g topical QID PRN pain (scale 10/13/21 (Voltaren Arthritis Pain) score 7-10) #100 grams compress.stocking,knee,reg,med #2 ea 02/26/22 meclizine 25 mg tablet 25 mg PO BID PRN dizziness #30 tabs 04/10/22 Ventolin HFA 90 mcg/actuation 2 puff inhalation Q6H PRN 12/24/22 aerosol inhaler (albuterol sulfate) shortness of breath or wheezing 30 days #8 grams Grab bar #2 ea 12/29/22 Shower Chair #1 ea 12/29/22 handheld showerhead #1 ea 12/29/22 incontinence pads #240 ea 12/29/22 toilet frame #1 ea 12/29/22 underpads (Bed Underpads) #100 ea 03/28/23 walker (Ultra-Light Rollator misc) #1 ea 12/29/22 sertraline 25 mg tablet See Rx Instructions PO DAILY #60 08/30/23 tabs apixaban 5 mg tablet (Eliquis) 5 mg PO BID #60 tabs 10/06/23 albuterol sulfate 90 mcg/actuation 2 puff inhalation Q4-6H PRN cough 02/10/24 aerosol inhaler #8.5 grams budesonide 0.5 mg/2 mL suspension 0.5 mg (2 mL) inhalation DAILY 30 06/01/24 for nebulization days #60 mL calcium 500 mg (as 1 tab PO BID 90 days #180 tabs 07/12/24 carbonate)-vitamin D3 10 mcg (400 unit) tablet (Calcium 500 With D) atorvastatin 40 mg tablet 40 mg PO BEDTIME #90 tabs 07/13/24 lisinopril 40 mg tablet 40 mg PO DAILY #90 tabs 07/23/24 metoprolol succinate 50 mg 50 mg PO BID #180 tabs 07/27/24 tablet,extended release 24 hr famotidine 40 mg tablet 40 mg PO BEDTIME #90 tabs 08/21/24 pantoprazole 40 mg tablet,delayed 40 mg PO QAM #90 tabs 08/21/24 release ipratropium 0.5 mg-albuterol 3 mg 3 ml inhalation DAILY 30 days #90 10/02/24 (2.5 mg base)/3 mL nebulization mL soln Allergies Allergy/AdvReac Type Severity Reaction Status Date / Time oxycodone [From Percocet] Allergy Intermediate Agitated Verified 10/04/24 14:19 Review of Systems Review of Systems: Yes all other systems are reviewed and are negative [facility] Past Medical History Medical History Schatzki's ring Depression Hypersomnia Snoring Cognitive impairment History of CVA (cerebrovascular accident) Afib Acute CVA (cerebrovascular accident) IBS (irritable bowel syndrome) Abdominal hyperesthesia Dyspepsia Osteoarthritis of lumbar spine Scoliosis GERD (gastroesophageal reflux disease) HTN (hypertension) Surgical History Status post ablation of incompetent vein using laser (06/12/22) Hx of hysterectomy H/O oophorectomy H/O bilateral breast reduction surgery Family History Family History Son HTN (hypertension) Father No problems noted. Mother No problems noted. Social History Social History Household Members: Spouse Housing: House Are you a primary healthcare translator to a significant other at home: No Do you presently have visiting nurse or other home services: No Alcohol intake: never Patient Tobacco Use Status: Never used Tobacco Smoked in Last 30 Days: No e-Cigarette/Vaping Use: Never Used Second Hand Smoke Exposure: No Use of substances other than those prescribed or required for medical reasons: No Advance Directives: Yes Advance Directives on File: Yes Advance Directives Date on File: 08/13/21 service: No Current occupational status: disabled Cognitive needs: No Hearing needs: No Vision needs: Yes (Glasses) Physical Exam ED Vital Signs: Vital Signs - 24 hr 10/04/24 14:15 10/04/24 17:09 10/04/24 20:31 Temperature 97.7 F 98.2 F 98.4 F Pulse Rate 78 68 70 Respiratory Rate 16 20 18 Blood Pressure 149/43 H 167/73 H 190/82 H Pulse Oximetry 99 98 100 Oxygen Delivery Method Room Air Room Air Room Air 10/04/24 21:11 10/04/24 21:29 10/04/24 23:10 Temperature 98.4 F Pulse Rate 63 63 65 Respiratory Rate 16 16 16 Blood Pressure 178/73 H 167/68 H 151/68 H Pulse Oximetry 99 100 100 Oxygen Delivery Method Room Air Room Air Room Air 10/04/24 23:47 10/05/24 00:03 Temperature 98.2 F Pulse Rate 65 65 Respiratory Rate 17 16 Blood Pressure 149/67 H 149/67 H Pulse Oximetry 100 97 Oxygen Delivery Method Room Air Room Air BMI result Body Mass Index 26.1 Appearance: Alert. Oriented X3. No acute distress. Eyes: PERRLA, No Nystagmus ENT: Pharynx normal. Oral Mucosa moist Neck: Normal inspection. Neck supple. CVS: Normal heart rate and rhythm. Pulses normal. Respiratory: No respiratory distress. Equal air entry bilateral, no wheezing/rales/rhonchi Abdomen: Soft and tenderness lower abdomen. Bowel sounds are present, no mass palpable, no CVA tenderness Skin: Skin warm and dry. Normal skin color. Normal skin turgor. Extremities: No lower extremity edema. No calf tenderness Neuro: Oriented X 3. No motor deficit. No sensory deficit.No cerebellar signs , cranial nerves II-XII intact Course Course Course Narrative: RME, this is a rapid medical exam performed by Bhupendra Rudolph please refer to primary provider for complete H&P- 78 year old female presents for evaluation of bright red blood per rectum with abdominal pain. She reports 4 episodes of bright red blood in stool since last night. The patient does take Eliquis for history of AFib. Plan for labs including type and screen and coags. She was well-appearing Medications Administered Discontinued Medications Generic Name Dose Route Start Last Admin Trade Name Freq PRN Reason Stop Dose Admin Prothrombin Complex Concent ( 80 mls @ 480 mls/hr 10/04/24 20:24 10/04/24 21:21 Human) 2,000 unit/ IV IV 10/04/24 20:33 Infused Miscellaneous Supplies .Q10M ONE Infusion Sodium Chloride 1,000 mls @ 999 mls/hr 10/04/24 23:09 10/05/24 00:46 Ns IV 10/05/24 00:09 Infused .Q1H1M ONE Infusion Iohexol 100 ml 10/04/24 19:01 10/04/24 19:01 Iohexol 350 Mg/Ml 100 Ml Infus..Btl IV 10/04/24 19:02 85 ml ONCE ONE Administration Morphine Sulfate 2 mg 10/04/24 22:49 10/04/24 22:58 Morphine Sulfate 2 Mg/Ml Cartridge IVPUSH 10/04/24 22:50 2 mg ONCE ONE Administration Protocol Medical Decision Making Medical Decision Making [facility] Narrative: Patient is on Eliquis with active sigmoid bleed seen in the bleeding scan last dose of Eliquis was yesterday bleeding slowed down during stay in the ER last time patient had a bowel movement was at 23:00 H&H stable vitals stable initially patient was planned to go to [facility] but there was no bed available at [facility] case discussed with Dr. Whitaker GI will look colonoscopy in the morning GI prep tonight Differential Diagnosis Differential Diagnoses: The differential diagnosis associated with the presentation includes Diverticular bleed/AV malformation Admission/Observation Consideration of admission/observation: Escalation of care including admission/observation considered Consult Healthcare Provider Management of the patient was discussed with: Hospitalist Lab Data MDM Lab Attestation statement: I reviewed the patient's lab results. 10/05/24 00:59 10/04/24 14:47 Labs: Lab Results 10/04/24 10/04/24 10/05/24 Range/Units 14:47 20:32 00:59 WBC 7.8 (4.8-10.8) X10*3/uL RBC 4.37 (4.20-5.50) X10*6/uL Hgb 12.9 13.4 12.0 (12.0-16.0) g/dl Hct 39.3 40.4 35.5 L (37.0-47.0) % MCV 89.9 (80.0-98.0) fL MCH 29.5 (27.0-33.0) pg MCHC 32.8 (31.0-35.0) g/dl RDW 13.2 (11.0-16.0) % Plt Count 206 (160-400) X10*3/uL MPV 11.1 (9.4-12.3) fL Immature Gran % (Auto) 0.3 (0.0-0.4) % Neut % (Auto) 80.8 H (45-73) % Lymph % (Auto) 11.1 L (20-40) % [place] % (Auto) 6.3 (2-11) % Eos % (Auto) 1.2 (0-4) % Baso % (Auto) 0.3 (0-2) % Lymph # (Auto) 0.9 L (1.2-4.9) X10*3/uL [place] # (Auto) 0.5 (0.1-1.2) X10*3/uL Eos # (Auto) 0.1 (0.0-0.4) X10*3/uL Baso # (Auto) 0.0 (0.0-0.2) X10*3/uL Abs Immat Gran (auto) 0.02 (0.00-0.03) X10*3/uL Absolute Neuts (auto) 6.3 (2.0-8.3) x10*3/uL Absolute Nucleated RBC 0.000 (0.0-0.012) X10*3/uL Nucleated RBC % (auto) 0.0 (0.0-0.2) /100WBC PT 11.2 (10.9-12.4) SEC INR 1.0 (0.9-1.1) Sodium 142 (135-145) mmol/L Potassium 4.0 (3.3-5.1) mmol/L Chloride 109 H (96-108) mmol/L Carbon Dioxide 26 (22-29) mmol/L Anion Gap 11 L (12-20) BUN 19 H (9-16) mg/dL Creatinine 0.78 (0.5-1.4) mg/dL Estim Creat Clear Calc 58.5 Estimated GFR > 60 Random Glucose 95 (60-115) mg/dL Calcium 9.0 (8.4-10.2) mg/dL Total Bilirubin 0.2 (0.0-1.0) mg/dL AST 42 H (5-31) U/L ALT 36 H (0-31) U/L Alkaline Phosphatase 71 (39-117) U/L Total Protein 7.0 (6.5-8.0) g/dL Albumin 3.9 (3.5-5.0) g/dL Lipase 23 (8-78) U/L Independent Interpretation I performed an independent interpretation of an: CT Scan Interpretation: [address] [address] [address] Scan Report Signed with Addenda Patient: Becca Maldonado MR#: [id number] : 1945 Acct:[id number] Age/Sex: 78 / F ADM Date: 10/04/24 Loc: HO.ED Attending Dr: Ordering Physician: Randy Mccullough MD Date of Service: 10/04/24 Procedure(s): CT gi bleed abd pel wo/w IVcon Accession Number(s): [id number] cc: Yeny Bay MD; Randy Mccullough MD~ Report Number: [id number]: Total DLP = 1278.00 mGy-cm ADDENDUMThis document has been electronically signed by: Duke Vazquez MD on 10/04/2024 19:58:33 ADDENDUM: This report was discussed with Sadia Thomas on Oct 04, 2024 20:05:00 EST. This document has been electronically signed by: Rimma Champagne on 10/04/2024 20:06:10 Addendum Dictated By: Duke Vazquez MD Addendum Signed By: <Electronically signed by Duke Vazquez MD in OV> 10/04/242005 Addendum Cosigned By: DD/ /28/1957 TD/TT: 10/04/2410/28/2005 CLINICAL HISTORY: Rectal bleed on [facility] CT abdomen and pelvis with and with the IV contrast. COMPARISON: None FINDINGS: Minimal atelectasis along the lung bases. Cardiomegaly. No focal hepatic lesion. Normal gallbladder. Normal spleen. Normal pancreas. Normal adrenal glands. Symmetric renal enhancement. No hydronephrosis. Diffuse thickening of the mucosa of the distal transverse, descending and sigmoid colon. Moderate distal colonic diverticulosis without evidence of diverticulitis. Focus of increased attenuation within the lumen of the proximal sigmoid colon raises suspicion for source of bleed (series axial postcontrast/13, image 487). Normal appendix. No bowel obstruction. No mesenteric or retroperitoneal lymphadenopathy. Moderate aortoiliac atherosclerotic vascular calcifications. Normal appearance of the urinary bladder. No adnexal mass. Grade 1 anterolisthesis of L4 on L5, degenerative. Moderate spondylosis. No acute fracture. IMPRESSION: 1. Suspect source of active gastrointestinal bleed within the proximal sigmoid colon. 2. Colonic diverticulosis without evidence of diverticulitis. 3. Diffuse thickening of the mucosa of the distal transverse, descending and sigmoid colon suggestive of a colitis. This document has been electronically signed by: Duke Vazquez MD on 10/04/2024 19:58:33 Radiology Impression Discussion of test interpretation with radiology: I discussed test interpretation with the radiologist and I have reviewed the radiologist's reading. Critical Care Time Critical Care Time Critical Care Time: Yes Total Critical Care Time: 60 Attestation: The patient was critically ill with a high probability of imminent or life threatening deterioration. I spent greater than ?70??minutes of discontinuous time evaluating the patient,delivering critical care at the bedside, discussing and evaluating pertinent data with consultants. Critical care time does not include time spent performing separately billable procedures or teaching. Total time spent performing critical care was 60???minutes. Discharge Plan Discharge Clinical Impression: Lower gastrointestinal hemorrhage Patient Disposition: Admitted As Inpatient Print Language: Togolese
[2024-10-04 14:52] LABS: Basophils Percent Auto 0.3 % (0-2); Eosinophils Absolute Auto 0.1 X10*3/uL (0.0-0.4); Eosinophils Percent Auto 1.2 % (0-4); Hematocrit 39.3 % (37.0-47.0); Hemoglobin 12.9 g/dl (12.0-16.0); Imm Gran Abs Auto 0.02 X10*3/uL (0.00-0.03); Imm Gran Pct Auto 0.3 % (0.0-0.4); Lymphocytes Absolute Auto 0.9 X10*3/uL (1.2-4.9); Lymphocytes Percent Auto 11.1 % (20-40); MANUAL DIFF FLAG NO; Mean Corpuscular HGB Conc 32.8 g/dl (31.0-35.0); Mean Corpuscular Hemoglobin 29.5 pg (27.0-33.0); Mean Corpuscular Volume 89.9 fL (80.0-98.0); Mean Platelet Volume 11.1 fL (9.4-12.3); Monocytes Absolute Auto 0.5 X10*3/uL (0.1-1.2); Monocytes Percent Auto 6.3 % (2-11); Neutrophils Absolute Auto 6.3 x10*3/uL (2.0-8.3); Neutrophils Percent Auto 80.8 % (45-73); Platelet Count 206 X10*3/uL (160-400); Red Blood Count 4.37 X10*6/uL (4.20-5.50); Red Cell Distribution Width 13.2 % (11.0-16.0); White Blood Count 7.8 X10*3/uL (4.8-10.8)
[2024-10-04 14:58] LABS: Prothrombin Time 11.2 SEC (10.9-12.4)
[2024-10-04 15:08] LABS: Alanine Aminotransferase 36 U/L (0-31); Albumin Level 3.9 g/dL (3.5-5.0); Alkaline Phosphatase 71 U/L (39-117); Anion Gap 11 (12-20); Aspartate Amino Transferase 42 U/L (5-31); Bilirubin Total 0.2 mg/dL (0.0-1.0); Blood Urea Nitrogen 19 mg/dL (9-16); Carbon Dioxide 26 mmol/L (22-29); Chloride 109 mmol/L (96-108); Creatinine Clr Calc Pharmacy 58.5; Estimated Glomerular Filt Rate > 60; Glucose Random 95 mg/dL (60-115); Lipase 23 U/L (8-78); Sodium 142 mmol/L (135-145)
[2024-10-04] MEDS: iohexoL 350 MG/ML 100 ML INFUS..BTL IV (19:01)
[2024-10-04 20:42] LABS: Hematocrit 40.4 % (37.0-47.0); Hemoglobin 13.4 g/dl (12.0-16.0)
--- NOTE | 2024-10-04 20:42 | PC.NURSE ---
utilizing the ambulatory analyst this patient told me she had 2 episodes of bloody stool while in [facility], has not had an episode while in ED room 2. This RN ambulated with pt to bathroom and patient had episode of bloody liquid in toilet, no solid BM. however she reports it has been coming out like liquid like that since yesterday, MD paul aware. ordering repeat H&H and Kcent[facility]. Tx to [facility]. waiting for pharmacy to bring med pt in no apparent distress denies complaints or pain
[2024-10-04] MEDS: Hum Prothrombin Cplx(PCC)4Fact 2,000 UNIT in Container,Empty 0 ML 480 UNIT IV (21:10)
[2024-10-04] MEDS: Morphine Sulfate 2 MG/ML CARTRIDGE IVPUSH (22:58)
--- NOTE | 2024-10-04 23:14 | PC.NURSE ---
bedside commode set up at patients bed side. pt continuing to have bloody liquid stool in toilet. MD aware. pt also reporting 8/10 lower abdominal pain/discomfort, medicated with 2mg morphine per dec. pt resting comfortably, vitals updated, call cruz within reach. per Md paul waiting for bed at [facility]
[2024-10-04] MEDS: 0.9 % Sodium Chloride 1,000 ML 999 ML IV (23:47)
[2024-10-05] VITALS (12 sets, daily range): BP systolic 113–168; BP diastolic 49–87; PULSE 62–79; RESP 14–18; TEMP 36.1–36.8; O2SAT 96–100; BMI 26.1
[2024-10-05 01:03] LABS: Hematocrit 35.5 % (37.0-47.0)
--- NOTE | 2024-10-05 03:11 | PM.IMHP ---
History of Present Illness Date of Service: 10/05/24 Chief Complaint: Bright red blood in stools This is a 78-year-old female with pertinent history of CVA, CAD, paroxysmal atrial fibrillation on Eliquis, mood disorder, cognitive impairment, gastroesophageal reflux disease, hypertension who presents to the emergency department for evaluation of bright red blood in stools. Patient states her symptoms started 1 day prior to presentation. She has had more than 5 episodes of bright red blood in stools. This has never happened before. Also has associated lower abdominal pain, nonprogressive, nonradiating. Her last colonoscopy was in 2022 and it was normal as per the patient. No fever, chills, chest pain, palpitations, shortness of breath, changes in urinary habits. In the emergency department, bleeding scan with suspected active GI bleed within the proximal sigmoid colon. Patient was given Kcentra and Gastroenterology consulted. Review of Systems Constitutional: Constitutional: Reports no additional constitutional complaints Cardiovascular: Cardiovascular: Reports no additional cardiovascular complaints Respiratory: Respiratory: Reports no additional respiratory complaints Gastrointestinal: Gastrointestinal: Reports hematochezia Genitourinary: Genitourinary: Reports no additional female genitourinary complaints [facility] Medical History Schatzki's ring Depression Hypersomnia Snoring Cognitive impairment History of CVA (cerebrovascular accident) Afib Acute CVA (cerebrovascular accident) IBS (irritable bowel syndrome) Abdominal hyperesthesia Dyspepsia Osteoarthritis of lumbar spine Scoliosis GERD (gastroesophageal reflux disease) HTN (hypertension) Family History Son HTN (hypertension) Father No problems noted. Mother No problems noted. Surgical History Status post ablation of incompetent vein using laser (06/12/22) Hx of hysterectomy H/O oophorectomy H/O bilateral breast reduction surgery Social History Household Members: Spouse Housing: House Are you a primary healthcare economics consultant to a significant other at home: No Do you presently have visiting nurse or other home services: No Alcohol intake: never Patient Tobacco Use Status: Never used Tobacco Smoked in Last 30 Days: No e-Cigarette/Vaping Use: Never Used Second Hand Smoke Exposure: No Use of substances other than those prescribed or required for medical reasons: No Advance Directives: Yes Advance Directives on File: Yes Advance Directives Date on File: 08/13/21 service: No Current occupational status: disabled Cognitive needs: No Hearing needs: No Vision needs: Yes (Glasses) Meds Allergies Allergy/AdvReac Type Severity Reaction Status Date / Time oxycodone [From Percocet] Allergy Intermediate Agitated Verified 10/04/24 14:19 Active Medications: Current Medications Acetaminophen (Acetaminophen 325 Mg Tablet) 650 mg PO Q6H PRN PRN Reason: Pain, Mild 1-3,fever,headache Calcium Carbonate (Calcium Carbonate 750 Mg Tab.Chew) 750 mg PO Q4H PRN PRN Reason: Heartburn Magnesium Hydroxide (Milk Of Magnesia 30 Ml Oral.Susp) 30 ml PO DAILY PRN PRN Reason: Constipation Melatonin (Melatonin 3 Mg Tablet) 6 mg PO BEDTIME PRN PRN Reason: Insomnia Ondansetron HCl (Ondansetron Hcl 4 Mg/2 Ml Vial) 4 mg IVPUSH Q8H PRN PRN Reason: Nausea and Vomiting Polyethylene Glycol/Electrolytes (Peg 3350/Na Sulf,Bicarb,Cl/Kcl 4,000 Ml Soln.Recon) 240 ml PO Q10M [facility] Stop: 10/05/24 05:56 Sodium Chloride (0.9 % Sodium Chloride Flush 3 Ml Syringe) 3 ml IVFLUSH QSHIFT [facility] Home Medications ?Medication ?Instructions ?Recorded ?Confirmed ?Last Taken ?Type aspirin 81 mg tablet,delayed 81 mg PO DAILY 12/05/20 07/11/24 08/18/24 History release (Enteric Coated Aspirin) cholecalciferol (vitamin D3) 25 25 mcg PO DAILY 12/05/20 07/11/24 08/09/23 History mcg (1,000 unit) capsule fluticasone propionate 50 1 spray intranasal DAILY PRN 08/13/21 07/11/24 08/09/23 History mcg/actuation nasal Allergy Symptoms spray,suspension acetaminophen 650 mg 650 mg PO Q8H PRN pain 08/09/23 07/11/24 Unknown History tablet,extended release donepezil 10 mg tablet 10 mg PO DAILY 08/09/23 07/11/2423 History memantine 5 mg tablet 5 mg PO BID 08/09/23 07/11/24 08/09/23 History torsemide 10 mg tablet 10 mg PO DAILY 01/11/24 07/11/24 Unknown History Physical Exam Vital Signs and Narrative: Vital Signs: Last Vital Signs Temp 98.2 F 10/05/24 00:03 Pulse 65 10/05/24 00:03 Resp 16 10/05/24 00:03 BP 149/67 H 10/05/24 00:03 Pulse Ox 97 10/05/24 00:03 O2 Del Method Room Air 10/05/24 00:03 BMI result Body Mass Index 26.1 Middle-aged female lying in bed in no distress Neck supple, no JVD Regular rate and rhythm, S1-S2 heard Regular breath sounds bilaterally, no wheezing or crackles appreciated Abdomen with mild generalized tenderness, no rigidity Patient is awake, alert and oriented to self, place, time and person ; no focal motor deficit Psych: Normal mood No pedal edema Results Labs 10/05/24 00:59 10/04/24 14:47 Labs: Laboratory Results - last 24 hr 10/04/24 10/05/24 14:47 02:12 MCV 89.9 MCH 29.5 MCHC 32.8 RDW 13.2 Plt Count 206 MPV 11.1 Immature Gran % (Auto) 0.3 Neut % (Auto) 80.8 H Lymph % (Auto) 11.1 L [place] % (Auto) 6.3 Eos % (Auto) 1.2 Baso % (Auto) 0.3 Lymph # (Auto) 0.9 L [place] # (Auto) 0.5 Eos # (Auto) 0.1 Baso # (Auto) 0.0 Abs Immat Gran (auto) 0.02 Absolute Neuts (auto) 6.3 Absolute Nucleated RBC 0.000 Nucleated RBC % (auto) 0.0 PT 11.2 INR 1.0 Anion Gap 11 L Estim Creat Clear Calc 58.5 Estimated GFR > 60 Random Glucose 95 Calcium 9.0 Total Bilirubin 0.2 AST 42 H ALT 36 H Alkaline Phosphatase 71 Total Protein 7.0 Albumin 3.9 Lipase 23 Blood Type A Positive Antibody Screen NEGATIVE Assessment and Plan (1) Lower gastrointestinal hemorrhage: Status: Acute Plan This is a 78-year-old female with pertinent history of CVA, CAD, paroxysmal atrial fibrillation on Eliquis, mood disorder, cognitive impairment, gastroesophageal reflux disease, hypertension who presents to the emergency department for evaluation of bright red blood in stools. #. Acute lower GI bleed: Will admit patient with cardiac monitoring. Kcentra given in the ER. GI was consulted> patient to be started on GoLYTELY for colon prep in a.m.. Will keep patient NPO. Closely monitor H&H #. History of CVA/CAD: Hold aspirin in the setting of GI bleed #. Paroxysmal atrial fibrillation: Hold Eliquis. Rate controlled in the ER #. Mood disorder: Continue home mood stabilizers when able #. Cognitive impairment: Maintain sleep-wake cycle #. Gastroesophageal reflux disease: On PPI #. Hypertension: Hold home antihypertensives in the setting of GI bleed Med rec pending DVT prophylaxis: Mechanical Full code Admit as inpatient and will require two night minimum hospital stay for management of GI bleed, close monitoring of hemodynamics (as above), which is not possible in a lesser acute setting. Quality Stroke Does the patient have a stroke diagnosis?: No VTE Prior VTE?: No VTE Risk Level:: Medical - moderate - high VTE Device Contraindication: N/A - Device Ordered VTE Drug Contraindication: Treatment Not Indicated
[2024-10-05] MEDS: PEG 3350/Na Sulf,Bicarb,Cl/KCL 4,000 ML SOLN.RECON 240 ML PO (03:38)
--- NOTE | 2024-10-05 03:52 | PC.NURSE ---
pt began drinking golytely at 0330
--- NOTE | 2024-10-05 05:05 | PC.NURSE ---
at this time pt has drank approx 3/4 of the golytely drink . tolerating well. pt had BM mostly liquid stool, mostly blood but starting to clear up per pt.
[2024-10-05 05:48] LABS: Basophils Percent Auto 0.2 % (0-2); Eosinophils Absolute Auto 0.1 X10*3/uL (0.0-0.4); Eosinophils Percent Auto 1.6 % (0-4); Hematocrit 41.3 % (37.0-47.0); Hemoglobin 13.3 g/dl (12.0-16.0); Imm Gran Abs Auto 0.02 X10*3/uL (0.00-0.03); Imm Gran Pct Auto 0.2 % (0.0-0.4); Lymphocytes Absolute Auto 1.2 X10*3/uL (1.2-4.9); Lymphocytes Percent Auto 14.4 % (20-40); MANUAL DIFF FLAG NO; Mean Corpuscular HGB Conc 32.2 g/dl (31.0-35.0); Mean Corpuscular Hemoglobin 29.3 pg (27.0-33.0); Mean Platelet Volume 11.2 fL (9.4-12.3); Monocytes Absolute Auto 0.6 X10*3/uL (0.1-1.2); Neutrophils Absolute Auto 6.2 x10*3/uL (2.0-8.3); Neutrophils Percent Auto 76.6 % (45-73); Platelet Count 209 X10*3/uL (160-400); Red Blood Count 4.54 X10*6/uL (4.20-5.50); Red Cell Distribution Width 13.2 % (11.0-16.0); White Blood Count 8.1 X10*3/uL (4.8-10.8)
[2024-10-05 06:00] LABS: Anion Gap 11 (12-20); Blood Urea Nitrogen 14 mg/dL (9-16); Carbon Dioxide 26 mmol/L (22-29); Chloride 107 mmol/L (96-108); Creatinine Clr Calc Pharmacy 55.6; Estimated Glomerular Filt Rate > 60; Glucose Random 116 mg/dL (60-115); Potassium 3.3 mmol/L (3.3-5.1); Sodium 141 mmol/L (135-145)
--- NOTE | 2024-10-05 07:12 | PM.GICN ---
History of Present Illness Data of Consult Service Date: 10/05/24 Requesting physician: Shannan Lopez Primary Care Provider: Yeny Rosenthal MD HPI Reason for consult: LGI bleeding 78 year old Swazi-speaking female with history of CVA, CAD, paroxysmal atrial fibrillation on Eliquis, mood disorder, cognitive impairment, gastroesophageal reflux disease, hypertension [place] [facility] [place] with bright red blood in stools. Patient reported her symptoms started 1 day prior to presentation and she had more than 5 episodes of BRB per rectum (1st episode of LGI bleeding). She also complained of nonradiating lower abdominal pain. Her last colonoscopy was in 2022 and it was normal as per the patient. Patient denied fever, chills, chest pain, palpitations, shortness of breath, changes in urinary habits. Last dose of Eliquis was on 10/03/24. Patient was given Kcentra Bleeding slowed down during stay in the ER and last bowel movement was at 23:00 H&H stable vitals stable initially Pt was given Golytely prep overnight - finished at 3 am this am. 10/04/[address] SCAN SHOWED: 1. Suspect source of active gastrointestinal bleed within the proximal sigmoid colon. 2. Colonic diverticulosis without evidence of diverticulitis. 3. Diffuse thickening of the mucosa of the distal transverse, descending and sigmoid colon suggestive of a colitis. PAST GI HISTORY BY REVIEW OF MEDICAL RECORDS: 2019 patient had a colonoscopy by Dr. Holden which revealed diverticulosis and no polyps were detected. Repeat colonoscopy was advised in 10 years Review of Systems Constitutional: Constitutional: Reports no additional constitutional complaints Cardiovascular: Cardiovascular: Reports no additional cardiovascular complaints Respiratory: Respiratory: Reports no additional respiratory complaints Gastrointestinal: Gastrointestinal: Reports hematochezia Genitourinary: Genitourinary: Reports no additional female genitourinary complaints PMFSH Past Medical History Medical History Schatzki's ring Depression Hypersomnia Snoring Cognitive impairment History of CVA (cerebrovascular accident) Afib Acute CVA (cerebrovascular accident) IBS (irritable bowel syndrome) Abdominal hyperesthesia Dyspepsia Osteoarthritis of lumbar spine Scoliosis GERD (gastroesophageal reflux disease) HTN (hypertension) Family History Family History Son HTN (hypertension) Father No problems noted. Mother No problems noted. Surgical History Surgical History Status post ablation of incompetent vein using laser (06/12/22) Hx of hysterectomy H/O oophorectomy H/O bilateral breast reduction surgery Social History Social History Household Members: None Housing: Apartment Are you a primary patient care technician to a significant other at home: No Do you presently have visiting nurse or other home services: Yes Alcohol intake: never Patient Tobacco Use Status: Never used Tobacco e-Cigarette/Vaping Use: Never Used Second Hand Smoke Exposure: No Advance Directives Date on File: 08/13/21 service: No Current occupational status: disabled Cognitive needs: No Hearing needs: No Vision needs: Yes (Glasses) Meds Allergies Allergy/AdvReac Type Severity Reaction Status Date / Time oxycodone [From Percocet] Allergy Intermediate Agitated Verified 10/04/24 14:19 Active Medications: Current Medications Acetaminophen (Acetaminophen 325 Mg Tablet) 650 mg PO Q6H PRN PRN Reason: Pain, Mild 1-3,fever,headache Calcium Carbonate (Calcium Carbonate 750 Mg Tab.Chew) 750 mg PO Q4H PRN PRN Reason: Heartburn Magnesium Hydroxide (Milk Of Magnesia 30 Ml Oral.Susp) 30 ml PO DAILY PRN PRN Reason: Constipation Melatonin (Melatonin 3 Mg Tablet) 6 mg PO BEDTIME PRN PRN Reason: Insomnia Morphine Sulfate (Morphine Sulfate 4 Mg/Ml Cartridge) 4 mg IVPUSH Q4H PRN; Protocol PRN Reason: Pain, Severe (Pain Scale 7-10) Ondansetron HCl (Ondansetron Hcl 4 Mg/2 Ml Vial) 4 mg IVPUSH Q8H PRN PRN Reason: Nausea and Vomiting Sodium Chloride (0.9 % Sodium Chloride Flush 3 Ml Syringe) 3 ml IVFLUSH QSHIFT [facility] Home Medications ?Medication ?Instructions ?Recorded ?Confirmed ?Last Taken ?Type donepezil 10 mg tablet 10 mg PO DAILY 08/09/23 10/05/24 08/09/23 History memantine 5 mg tablet 5 mg PO BID 08/09/23 10/05/24 08/09/23 History Physical Exam Vital Signs: Vital Signs: Last Vital Signs Temp 98.2 F 10/05/24 00:03 Pulse 70 10/05/24 03:40 Resp 16 10/05/24 03:40 BP 141/87 H 10/05/24 03:40 Pulse Ox 99 10/05/24 03:40 O2 Del Method Room Air 10/05/24 03:40 BMI result Body Mass Index 26.1 Results Labs 10/05/24 05:43 10/05/24 05:43 Labs: Short CBC 10/04/24 10/04/24 10/05/24 Range/Units 14:47 20:32 00:59 WBC 7.8 (4.8-10.8) X10*3/uL Hgb 12.9 13.4 12.0 (12.0-16.0) g/dl Hct 39.3 40.4 35.5 L (37.0-47.0) % Plt Count 206 (160-400) X10*3/uL 10/05/24 Range/Units 05:43 WBC 8.1 (4.8-10.8) X10*3/uL Hgb 13.3 (12.0-16.0) g/dl Hct 41.3 (37.0-47.0) % Plt Count 209 (160-400) X10*3/uL BMP 10/04/24 10/05/24 14:47 05:43 Sodium 142 141 Potassium 4.0 3.3 Chloride 109 H 107 Carbon Dioxide 26 26 BUN 19 H 14 Creatinine 0.78 0.82 Calcium 9.0 9.0 Liver Function 10/04/24 Range/Units 14:47 Total Bilirubin 0.2 (0.0-1.0) mg/dL AST 42 H (5-31) U/L ALT 36 H (0-31) U/L Alkaline Phosphatase 71 (39-117) U/L Albumin 3.9 (3.5-5.0) g/dL Assessment and Plan (1) Lower gastrointestinal hemorrhage: Status: Acute Plan 78 year old Swazi-speaking female with history of CVA, CAD, paroxysmal atrial fibrillation on Eliquis, mood disorder, cognitive impairment, gastroesophageal reflux disease, hypertension [place] [facility] [place] with bright red blood in stools x 1 day prior to presentation and she had more than 5 episodes of BRB per rectum (1st episode of LGI bleeding). Her last colonoscopy was in 2022 and it was normal as per the patient. Last dose of Eliquis was on 10/03/24. Patient was given Kcentra in the ER Bleeding slowed down during stay in the ER and last bowel movement was at 23:00 Pt was given Golytely prep overnight - finished at 3 am this am. LGI bleeding likely diverticular. Other possibilities include colonic AVMs. Large polyp or mass would be less likely given negative colon a year ago RECOMMENDATIONS: 1. Proceed with colonosccopy today Procedures Date of Service Date of Service: 10/05/24
--- NOTE | 2024-10-05 07:31 | ECG_ITS ---
Test Reason : HX A_FIB Blood Pressure : / mmHG Vent. Rate : 068 BPM Atrial Rate : 068 BPM P-R Int : 196 ms QRS Dur : 088 ms QT Int : 466 ms P-R-T Axes : 053 038 059 degrees QTc Int : 495 ms Normal sinus rhythm Possible Left atrial enlargement Nonspecific T wave abnormality Prolonged QT Abnormal ECG When compared with ECG of 12-JUL-2024 10:56, Nonspecific T wave abnormality now evident in Anterior leads Referred By: Monroe Lopez Electronically Signed By:IRVIN NICOLAS MD
--- NOTE | 2024-10-05 08:20 | MHC.EDTECH ---
Hourly round, vitals and EKG completed. Patient resting quietly in her bed within the call belt in reach.
--- NOTE | 2024-10-05 08:48 | PHA.MEDREC ---
Pharmacy Consult ? Medication Reconciliation Pharmacy has completed the medication reconciliation. Patient doesn't know which medications she is taking, I received a medication profile from the patient's pharmacy to confirm which meds she has filled recently.
--- NOTE | 2024-10-05 10:24 | MHC.CM.PN ---
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 HCP is on file, and confirmed, her son, Floyd. PCP is confirmed: Yeny Rosenthal. Pt. can arrange transport home at DC. DCP: home, resume SWATCHER services. CM to follow for DC needs.
--- NOTE | 2024-10-05 11:37 | PM.EVENT ---
Event Note Date of Service: 10/05/24 Event Note: Seen and examined this morning Follow-up for GI bleeding History obtained with the assistance of a spinning frame tender Patient reports ongoing lower abdominal pain Completed prep overnight, plan for colonoscopy today This is a 78-year-old female with pertinent history of CVA, CAD, paroxysmal atrial fibrillation on Eliquis, mood disorder, cognitive impairment, gastroesophageal reflux disease, hypertension who presents to the emergency department for evaluation of bright red blood in stools. Acute lower GI bleed: Kcentra given in the ER GI was consulted> patient to be started on GoLYTELY for colonoscpy planned for today NPO H/H stable colitis diffuse thickening of musocsa of distal transverse/descending and sigmoid colon plan for colonoscopy today will discuss with GI re need for ABX mild transaminitis follow LFTs History of CVA/CAD: Hold aspirin in the setting of GI bleed Paroxysmal atrial fibrillation: Hold Eliquis. continue metoprolol Cognitive impairment: Maintain sleep-wake cycle continue aricept, namenda Gastroesophageal reflux disease: continue pepcid, PPI Hypertension: Hold Lisinopril in the setting of GI bleed contrinue metoprolol DVT prophylaxis: Mechanical due to GI bleeding; eliquis on hold Full code Admit as inpatient and will require two night minimum hospital stay for management of GI bleed, close monitoring of hemodynamics (as above), which is not possible in a lesser acute setting. Time Spent With Patient Time: Total time managing care of this patient today ____ minutes.
[2024-10-05 12:10] LABS: Alanine Aminotransferase 30 U/L (0-31); Alkaline Phosphatase 69 U/L (39-117); Aspartate Amino Transferase 35 U/L (5-31); Bilirubin Direct 0.2 mg/dL (0.0-0.5); Bilirubin Total 0.8 mg/dL (0.0-1.0); Total Protein 7.1 g/dL (6.5-8.0)
--- NOTE | 2024-10-05 13:26 | P.CONAN_ITS ---
HPI - Anesthesia Eval Consult details Narrative: colon screen PMFSH Active Problems Active Problems: All Active Problems Lower gastrointestinal hemorrhage (Acute) Schatzki's ring (Acute) Pre-op evaluation (Acute) Difficulty swallowing (Acute) Hospital discharge follow-up (Acute) CAD (coronary artery disease) (Acute) Depression (Acute) Hypersomnia (Acute) Snoring (Acute) Cognitive impairment (Acute) GERD (gastroesophageal reflux disease) (Acute) COVID-19 (Acute) Vocal cord dysfunction (Acute) Foot deformity (Acute) Urinary incontinence (Acute) New daily persistent headache (Acute) Lymphedema (Acute) Physical exam (Acute) Asthma (Acute) Varicose veins of right lower extremity with inflammation (Acute) Heel pain, bilateral (Acute) Bilateral lower extremity edema (Acute) H/O: CVA (cerebrovascular accident) (Acute) Dizziness (Acute) Essential hypertension (Acute) Lumbar radiculopathy (Acute) Post-menopausal (Acute) Impacted molar (Acute) Atherosclerotic cardiovascular disease (Acute) PAF (paroxysmal atrial fibrillation) (Acute) HTN (hypertension) (Acute) Shoulder pain, bilateral (Acute) Hypercholesteremia (Acute) Chronic pelvic pain syndrome in female (Acute) Low back pain of over 3 months duration (Acute) Abdominal pain (Acute) Vertigo (Acute) Degenerative disc disease, cervical (Acute) Bone spur of acromioclavicular joint (Acute) Screening for osteoporosis (Acute) Arm pain (Acute) Cervical pain (Acute) Screening for breast cancer (Acute) Petechiae (Acute) Afib (Acute) Cerebellar infarct (Acute) Pulmonary nodules (Acute) Dyspnea on exertion (Acute) Chronic cough (Acute) Monoclonal gammopathy (Acute) Polyarthralgia (Acute) Past Medical History Medical History Schatzki's ring Depression Hypersomnia Snoring Cognitive impairment History of CVA (cerebrovascular accident) Afib Acute CVA (cerebrovascular accident) IBS (irritable bowel syndrome) Abdominal hyperesthesia Dyspepsia Osteoarthritis of lumbar spine Scoliosis GERD (gastroesophageal reflux disease) HTN (hypertension) Family History Family History Son HTN (hypertension) Father No problems noted. Mother No problems noted. Family history of problems with anesthesia: No Surgical History Surgical History Status post ablation of incompetent vein using laser (06/12/22) Hx of hysterectomy H/O oophorectomy H/O bilateral breast reduction surgery History of Problems with Anesthesia: No Social History Social History Household Members: None Housing: Apartment Are you a primary acute care physician to a significant other at home: No Do you presently have visiting nurse or other home services: Yes Alcohol intake: never Patient Tobacco Use Status: Never used Tobacco e-Cigarette/Vaping Use: Never Used Second Hand Smoke Exposure: No Advance Directives Date on File: 08/13/21 service: No Current occupational status: disabled Cognitive needs: No Hearing needs: No Vision needs: Yes (Glasses) Meds Allergies Allergy/AdvReac Type Severity Reaction Status Date / Time oxycodone [From Percocet] Allergy Intermediate Agitated Verified 10/04/24 14:19 Active Medications: Current Medications Acetaminophen (Acetaminophen 325 Mg Tablet) 650 mg PO Q6H PRN PRN Reason: Pain, Mild 1-3,fever,headache Albuterol/Ipratropium (Albuterol/Iprat 2.5/0.5mg 3 Ml Ampul.Neb) 3 ml INHALE DAILY [facility] Atorvastatin Calcium (Atorvastatin Calcium 40 Mg Tablet) 40 mg PO BEDTIME ABDULKADIR Budesonide (Budesonide 0.5 Mg/2 Ml Ampul.Neb) 0.5 mg INHALE DAILY [facility] Calcium Carbonate (Calcium Carbonate 750 Mg Tab.Chew) 750 mg PO Q4H PRN PRN Reason: Heartburn Calcium Carbonate/Cholecalciferol (Calcium + Vitamin D 250 Mg Tablet) 250 mg PO BID [facility] Donepezil HCl (Donepezil Hcl 10 Mg Tablet) 10 mg PO DAILY ABDULKADIR Famotidine (Famotidine 20 Mg Tablet) 40 mg PO BEDTIME ABDULKADIR Magnesium Hydroxide (Milk Of Magnesia 30 Ml Oral.Susp) 30 ml PO DAILY PRN PRN Reason: Constipation Melatonin (Melatonin 3 Mg Tablet) 6 mg PO BEDTIME PRN PRN Reason: Insomnia Memantine (Memantine Hcl 5 Mg Tablet) 5 mg PO BID ABDULKADIR Metoprolol Succinate (Metoprolol Succinate Er 50 Mg Tab.Er.24h) 50 mg PO BID ABDULKADIR; Protocol Morphine Sulfate (Morphine Sulfate 4 Mg/Ml Cartridge) 4 mg IVPUSH Q4H PRN; Protocol PRN Reason: Pain, Severe (Pain Scale 7-10) Ondansetron HCl (Ondansetron Hcl 4 Mg/2 Ml Vial) 4 mg IVPUSH Q8H PRN PRN Reason: Nausea and Vomiting Pantoprazole Sodium (Pantoprazole Sodium 20 Mg Tablet.Dr) 40 mg PO DAILY@0630 [facility] Sodium Chloride (0.9 % Sodium Chloride Flush 3 Ml Syringe) 3 ml IVFLUSH QSHIFT [facility] Home Medications ?Medication ?Instructions ?Recorded ?Confirmed ?Last Taken ?Type donepezil 10 mg tablet 10 mg PO DAILY 08/09/23 10/05/24 08/09/23 History memantine 5 mg tablet 5 mg PO BID 08/09/23 10/05/24 08/09/23 History Exam Height,Weight and Vital Signs: Height 5 ft 4 in Weight 68.9 kg Last Vital Signs Temp 97.2 F 10/05/24 12:00 Pulse 63 10/05/24 12:00 Resp 16 10/05/24 12:00 BP 138/82 10/05/24 12:00 Pulse Ox 97 10/05/24 12:00 O2 Del Method Room Air 10/05/24 12:00 Pertinent Lab Results Pertinent Lab Results: Laboratory Tests 10/04/24 10/04/24 10/05/24 14:47 20:32 00:59 WBC 7.8 RBC 4.37 Hgb 12.9 13.4 12.0 Hct 39.3 40.4 35.5 L MCV 89.9 MCH 29.5 MCHC 32.8 RDW 13.2 Plt Count 206 MPV 11.1 Immature Gran % (Auto) 0.3 Neut % (Auto) 80.8 H Lymph % (Auto) 11.1 L [place] % (Auto) 6.3 Eos % (Auto) 1.2 Baso % (Auto) 0.3 Lymph # (Auto) 0.9 L [place] # (Auto) 0.5 Eos # (Auto) 0.1 Baso # (Auto) 0.0 Abs Immat Gran (auto) 0.02 Absolute Neuts (auto) 6.3 Absolute Nucleated RBC 0.000 Nucleated RBC % (auto) 0.0 PT 11.2 INR 1.0 Sodium 142 Potassium 4.0 Chloride 109 H Carbon Dioxide 26 Anion Gap 11 L BUN 19 H Creatinine 0.78 Estim Creat Clear Calc 58.5 Estimated GFR > 60 Random Glucose 95 Calcium 9.0 Total Bilirubin 0.2 Direct Bilirubin AST 42 H ALT 36 H Alkaline Phosphatase 71 Total Protein 7.0 Albumin 3.9 Lipase 23 Blood Type Antibody Screen 10/05/24 10/05/24 02:12 05:43 WBC 8.1 RBC 4.54 Hgb 13.3 Hct 41.3 MCV 91.0 MCH 29.3 MCHC 32.2 RDW 13.2 Plt Count 209 MPV 11.2 Immature Gran % (Auto) 0.2 Neut % (Auto) 76.6 H Lymph % (Auto) 14.4 L [place] % (Auto) 7.0 Eos % (Auto) 1.6 Baso % (Auto) 0.2 Lymph # (Auto) 1.2 [place] # (Auto) 0.6 Eos # (Auto) 0.1 Baso # (Auto) 0.0 Abs Immat Gran (auto) 0.02 Absolute Neuts (auto) 6.2 Absolute Nucleated RBC 0.000 Nucleated RBC % (auto) 0.0 PT INR Sodium 141 Potassium 3.3 Chloride 107 Carbon Dioxide 26 Anion Gap 11 L BUN 14 Creatinine 0.82 Estim Creat Clear Calc 55.6 Estimated GFR > 60 Random Glucose 116 H Calcium 9.0 Total Bilirubin 0.8 Direct Bilirubin 0.2 AST 35 H ALT 30 Alkaline Phosphatase 69 Total Protein 7.1 Albumin 4.0 Lipase Blood Type A Positive Antibody Screen NEGATIVE Airway Mallampati Class: II TM Dist: >3cm Neck ROM: Limited Heart: A fib Lungs: cta Assessment and Plan Assessment Anesthesia Assessment: Anesthesia Plan Discussed Final Anesthetic Review Family History of Problems with Anesthesia: No History of Problems with Anesthesia: No NPO: Yes ASA Class: III Final Preanesthetic Review: No Changes in Pt Med Stat, Meds/Allgs Chart Reviewed, Consent Obtained/Reviewed and Anes Risks/Benef Reviewed Patient Risk: Intermediate Procedure Risk: Low Anesthetic Plan Anesthetic Plan: MAC: Disposition: Standard PACU
[2024-10-05] MEDS: Lactated Ringers 1,000 ML 80 ML IVCONT (13:54)
--- NOTE | 2024-10-05 14:57 | P.CONAN_ITS ---
[facility] Active Problems Active Problems: All Active Problems Lower gastrointestinal hemorrhage (Acute) Schatzki's ring (Acute) Pre-op evaluation (Acute) Difficulty swallowing (Acute) Hospital discharge follow-up (Acute) CAD (coronary artery disease) (Acute) Depression (Acute) Hypersomnia (Acute) Snoring (Acute) Cognitive impairment (Acute) GERD (gastroesophageal reflux disease) (Acute) COVID-19 (Acute) Vocal cord dysfunction (Acute) Foot deformity (Acute) Urinary incontinence (Acute) New daily persistent headache (Acute) Lymphedema (Acute) Physical exam (Acute) Asthma (Acute) Varicose veins of right lower extremity with inflammation (Acute) Heel pain, bilateral (Acute) Bilateral lower extremity edema (Acute) H/O: CVA (cerebrovascular accident) (Acute) Dizziness (Acute) Essential hypertension (Acute) Lumbar radiculopathy (Acute) Post-menopausal (Acute) Impacted molar (Acute) Atherosclerotic cardiovascular disease (Acute) PAF (paroxysmal atrial fibrillation) (Acute) HTN (hypertension) (Acute) Shoulder pain, bilateral (Acute) Hypercholesteremia (Acute) Chronic pelvic pain syndrome in female (Acute) Low back pain of over 3 months duration (Acute) Abdominal pain (Acute) Vertigo (Acute) Degenerative disc disease, cervical (Acute) Bone spur of acromioclavicular joint (Acute) Screening for osteoporosis (Acute) Arm pain (Acute) Cervical pain (Acute) Screening for breast cancer (Acute) Petechiae (Acute) Afib (Acute) Cerebellar infarct (Acute) Pulmonary nodules (Acute) Dyspnea on exertion (Acute) Chronic cough (Acute) Monoclonal gammopathy (Acute) Polyarthralgia (Acute) Past Medical History Medical History Schatzki's ring Depression Hypersomnia Snoring Cognitive impairment History of CVA (cerebrovascular accident) Afib Acute CVA (cerebrovascular accident) IBS (irritable bowel syndrome) Abdominal hyperesthesia Dyspepsia Osteoarthritis of lumbar spine Scoliosis GERD (gastroesophageal reflux disease) HTN (hypertension) Patient : No Family History Family History Son HTN (hypertension) Father No problems noted. Mother No problems noted. Family history of problems with anesthesia: No Surgical History Surgical History Status post ablation of incompetent vein using laser (06/12/22) Hx of hysterectomy H/O oophorectomy H/O bilateral breast reduction surgery History of Problems with Anesthesia: No Social History Social History Household Members: None Housing: Apartment Are you a primary workforce investment act career manager to a significant other at home: No Do you presently have visiting nurse or other home services: No Alcohol intake: never Patient Tobacco Use Status: Never used Tobacco e-Cigarette/Vaping Use: Never Used Second Hand Smoke Exposure: No Advance Directives Date on File: 08/13/21 service: No Current occupational status: disabled Cognitive needs: No Hearing needs: No Vision needs: Yes (Glasses) Meds Allergies Allergy/AdvReac Type Severity Reaction Status Date / Time oxycodone [From Percocet] Allergy Intermediate Agitated Verified 10/04/24 14:19 Active Medications: Current Medications Acetaminophen (Acetaminophen 325 Mg Tablet) 650 mg PO Q6H PRN PRN Reason: Pain, Mild 1-3,fever,headache Albuterol/Ipratropium (Albuterol/Iprat 2.5/0.5mg 3 Ml Ampul.Neb) 3 ml INHALE DAILY [facility] Atorvastatin Calcium (Atorvastatin Calcium 40 Mg Tablet) 40 mg PO BEDTIME ABDULKADIR Budesonide (Budesonide 0.5 Mg/2 Ml Ampul.Neb) 0.5 mg INHALE DAILY [facility] Calcium Carbonate (Calcium Carbonate 750 Mg Tab.Chew) 750 mg PO Q4H PRN PRN Reason: Heartburn Calcium Carbonate/Cholecalciferol (Calcium + Vitamin D 250 Mg Tablet) 250 mg PO BID [facility] Donepezil HCl (Donepezil Hcl 10 Mg Tablet) 10 mg PO DAILY [facility] Famotidine (Famotidine 20 Mg Tablet) 40 mg PO BEDTIME [facility] Lactated Ringer's (Lr) 1,000 mls @ 80 mls/hr IVCONT .[id number] [facility] Last Admin: 10/05/24 13:54 Dose: 80 mls/hr Magnesium Hydroxide (Milk Of Magnesia 30 Ml Oral.Susp) 30 ml PO DAILY PRN PRN Reason: Constipation Melatonin (Melatonin 3 Mg Tablet) 6 mg PO BEDTIME PRN PRN Reason: Insomnia Memantine (Memantine Hcl 5 Mg Tablet) 5 mg PO BID [facility] Metoprolol Succinate (Metoprolol Succinate Er 50 Mg Tab.Er.24h) 50 mg PO BID [facility]; Protocol Morphine Sulfate (Morphine Sulfate 4 Mg/Ml Cartridge) 4 mg IVPUSH Q4H PRN; Protocol PRN Reason: Pain, Severe (Pain Scale 7-10) Naloxone HCl (Naloxone Hcl 0.4 Mg/Ml Vial) 0.04 mg IVPUSH Q5M PRN PRN Reason: Excessive sedation or RR < 8 Ondansetron HCl (Ondansetron Hcl 4 Mg/2 Ml Vial) 4 mg IVPUSH Q8H PRN PRN Reason: Nausea and Vomiting Pantoprazole Sodium (Pantoprazole Sodium 20 Mg Tablet.Dr) 40 mg PO DAILY@629 [facility] Sodium Chloride (0.9 % Sodium Chloride Flush 3 Ml Syringe) 3 ml IVFLUSH QSHIFT [facility] Home Medications ?Medication ?Instructions ?Recorded ?Confirmed ?Last Taken ?Type donepezil 10 mg tablet 10 mg PO DAILY 08/09/23 10/05/24 08/09/23 History memantine 5 mg tablet 5 mg PO BID 08/09/23 10/05/24 08/09/23 History Exam Height,Weight and Vital Signs: Height 5 ft 4 in Weight 68.9 kg Last Vital Signs Temp 97.6 F 10/05/24 13:55 Pulse 64 10/05/24 13:55 Resp 14 10/05/24 13:55 BP 113/49 L 10/05/24 13:55 Pulse Ox 97 10/05/24 13:55 O2 Del Method Room Air 10/05/24 13:55 Pertinent Lab Results Pertinent Lab Results: Laboratory Tests 10/04/24 10/04/24 10/05/24 14:47 20:32 00:59 WBC 7.8 RBC 4.37 Hgb 12.9 13.4 12.0 Hct 39.3 40.4 35.5 L MCV 89.9 MCH 29.5 MCHC 32.8 RDW 13.2 Plt Count 206 MPV 11.1 Immature Gran % (Auto) 0.3 Neut % (Auto) 80.8 H Lymph % (Auto) 11.1 L [place] % (Auto) 6.3 Eos % (Auto) 1.2 Baso % (Auto) 0.3 Lymph # (Auto) 0.9 L [place] # (Auto) 0.5 Eos # (Auto) 0.1 Baso # (Auto) 0.0 Abs Immat Gran (auto) 0.02 Absolute Neuts (auto) 6.3 Absolute Nucleated RBC 0.000 Nucleated RBC % (auto) 0.0 PT 11.2 INR 1.0 Sodium 142 Potassium 4.0 Chloride 109 H Carbon Dioxide 26 Anion Gap 11 L BUN 19 H Creatinine 0.78 Estim Creat Clear Calc 58.5 Estimated GFR > 60 Random Glucose 95 Calcium 9.0 Total Bilirubin 0.2 Direct Bilirubin AST 42 H ALT 36 H Alkaline Phosphatase 71 Total Protein 7.0 Albumin 3.9 Lipase 23 Blood Type Antibody Screen 10/05/24 10/05/24 02:12 05:43 WBC 8.1 RBC 4.54 Hgb 13.3 Hct 41.3 MCV 91.0 MCH 29.3 MCHC 32.2 RDW 13.2 Plt Count 209 MPV 11.2 Immature Gran % (Auto) 0.2 Neut % (Auto) 76.6 H Lymph % (Auto) 14.4 L [place] % (Auto) 7.0 Eos % (Auto) 1.6 Baso % (Auto) 0.2 Lymph # (Auto) 1.2 [place]ion # (Auto) 0.6 Eos # (Auto) 0.1 Baso # (Auto) 0.0 Abs Immat Gran (auto) 0.02 Absolute Neuts (auto) 6.2 Absolute Nucleated RBC 0.000 Nucleated RBC % (auto) 0.0 PT INR Sodium 141 Potassium 3.3 Chloride 107 Carbon Dioxide 26 Anion Gap 11 L BUN 14 Creatinine 0.82 Estim Creat Clear Calc 55.6 Estimated GFR > 60 Random Glucose 116 H Calcium 9.0 Total Bilirubin 0.8 Direct Bilirubin 0.2 AST 35 H ALT 30 Alkaline Phosphatase 69 Total Protein 7.1 Albumin 4.0 Lipase Blood Type A Positive Antibody Screen NEGATIVE Airway Mallampati Class: II TM Dist: >3cm Neck ROM: Full Heart: RRR Lungs: CTA Assessment and Plan Assessment Anesthesia Assessment: Anesthesia Plan Discussed and Chart Reviewed Final Anesthetic Review Family History of Problems with Anesthesia: No History of Problems with Anesthesia: No NPO: Yes ASA Class: III Final Preanesthetic Review: Meds/Allgs Chart Reviewed, Consent Obtained/Reviewed and Anes Risks/Benef Reviewed Patient Risk: Intermediate Procedure Risk: Low Anesthetic Plan Anesthetic Plan: MAC: Disposition: Standard PACU
--- NOTE | 2024-10-05 15:23 | P.OPN-COLO_ITS ---
Colonoscopy Operative Note Operative Note Date of Service: 10/05/24 Narrative: COLONOSCOPY TILL CECUM WITH BIOPSIES Pre-op diagnosis: LGI bleeding. Post-op diagnosis:? Left sided colitis, Diverticulosis Endoscopist:? Marcie Whitaker MD Anesthesia:?MAC Consent: Indications for the procedure and potential complications of bleeding, perforation, reaction to medications and missed diagnosis were discussed with the patient and informed consent was obtained. Instrument: Olympus PCF H 190 L variable stiffness pediatric colonoscope Monitoring: Vital signs and clinical assessment, intermittent blood pressure monitoring, continuous EKG monitoring, Pulse oximetry and Carbon Dioxide monitoring were done throughout the procedure. Please see anesthesia flowsheet. Colon withdrawl time was 14 minutes. Procedure: The patient was placed in the left lateral decubitis position and pre-procedure medications were administered. After a digital rectal examination of the ano-rectum, the video colonoscope was inserted into the rectum and advanced through the colon to the cecum. The colonoscope was slowly withdrawn in a retrograde panoramic fashion and the colon mucosa was carefully examined including a retroflexed view of the rectum. Findings and interventions are described below. Procedure Difficulty: without difficulty Findings: Terminal Ileum: Not evaluated Cecum: Normal Ascending Colon: Normal Transverse Colon: Patchy erythema in the distal transverse colon Descending Colon: Edema, erythema with friable and ulcerated mucosa from 20 to 55 cms Moderate diverticulosis Sigmoid Colon: Edema, erythema with friable and ulcerated mucosa from 20 to 55 cms - biopsies were obtained Severe diverticulosis with luminal narrowing Rectum: Normal Ano-rectum: Normal Colon preparation: Good after some irrigation. [place] Bowel Preparation Scale Right colon; 2 Transverse colon: 2 Left colon; 2 (0 = Unprepared colon segment with mucosa not seen due to solid stool that cannot be cleared. 1 = Portion of mucosa of the colon segment seen, but other areas of the colon segment not well seen due to staining, residual stool and/or opaque liquid. 2 = Minor amount of residual staining, small fragments of stool and/or opaque liquid, but mucosa of colon segment seen well. 3 = Entire mucosa of colon segment seen well with no residual staining, small fragments of stool or opaque liquid) Impression and Post Procedure Diagnosis: Colonoscopy Findings: No polyps were detected Edema, erythema with friable and ulcerated mucosa from 20 to 55 cms - biopsies were obtained Moderate to severe diverticulosis seen in the left colon LGI bleeding likey from left sided colitis due to ischemia. No blood seen in the colon during colonoscopy. Plan: 1. Start IV antibiotics tonight and switch to PO at discharge (7 days of antibiotic therapy) 2. Clear liquid diet tonight and advance diet as tolerated. 3. Repeat CBC in the am and pt can be discharged home in the am if CBC is stable without further bleeding. 4. Pt has a FU appointment on 12/04/24 with Vandana Nicholas NP 5. Discontinue screening colonoscopy due to advanced age with comorbidities Above findings were reviewed with the patient and relevant handouts were given and the discharge area.
--- NOTE | 2024-10-05 15:46 | HO.POSTANES ---
Post Anesthesia Evaluation Post Anesthesia Evaluation Date of Service: 10/05/24 Vital Signs: Vital Signs Temp Pulse Resp BP Pulse Ox O2 Del Method 10/05/24 15:28 97.1 F 67 16 118/56 L 98 Room Air 10/05/24 13:55 97.6 F 64 14 113/49 L 97 Room Air 10/05/24 12:00 97.2 F 63 16 138/82 97 Room Air 10/05/24 11:39 98.1 F 79 18 155/63 H 98 Room Air 10/05/24 08:02 98.1 F 71 16 144/62 H 97 Room Air Anesthesia: Monitored Mental Status: Awake Pain Control: Satisfactory Nausea/Vomiting: None Hydration: Adequate Anesthesia-Related Issues: No Anes. Related Issues
[2024-10-05] MEDS: metroNIDAZOLE/NS 500 MG/100 ML PIGGYBACK 100 MG IV (18:22)
[2024-10-05] MEDS: cefTRIAXone sodium 1 GM VIAL IVPUSH (18:22)
[2024-10-05] MEDS: 0.9 % Sodium Chloride Flush 3 ML SYRINGE IVFLUSH ×2 (18:23→20:32)
[2024-10-05] MEDS: Atorvastatin Calcium 40 MG TABLET PO (20:27)
[2024-10-05] MEDS: Metoprolol Succinate ER 50 MG TAB.ER.24H PO (20:28)
[2024-10-05] MEDS: Calcium + Vitamin D 250 MG TABLET PO (20:29)
[2024-10-05] MEDS: Famotidine 20 MG TABLET 40 MG PO (20:29)
[2024-10-05] MEDS: Memantine HCl 5 MG TABLET PO (20:40)
[2024-10-06] VITALS (10 sets, daily range): BP systolic 117–168; BP diastolic 66–75; PULSE 60–70; RESP 16–18; TEMP 36.1–37.1; O2SAT 94–97
[2024-10-06] MEDS: Lactated Ringers 1,000 ML 80 ML IVCONT (03:02)
[2024-10-06] MEDS: metroNIDAZOLE/NS 500 MG/100 ML PIGGYBACK 100 MG IV ×3 (03:06→16:54)
[2024-10-06] MEDS: Pantoprazole Sodium 20 MG TABLET.DR 40 MG PO (06:25)
[2024-10-06] MEDS: Albuterol/Iprat 2.5/0.5MG 3 ML AMPUL.NEB INHALE (07:36)
[2024-10-06 07:52] LABS: Hemoglobin 12.2 g/dl (12.0-16.0); Mean Corpuscular Hemoglobin 29.8 pg (27.0-33.0); Mean Corpuscular Volume 90.5 fL (80.0-98.0); Mean Platelet Volume 12.1 fL (9.4-12.3); Platelet Count 170 X10*3/uL (160-400); Red Blood Count 4.09 X10*6/uL (4.20-5.50); Red Cell Distribution Width 13.2 % (11.0-16.0); White Blood Count 5.8 X10*3/uL (4.8-10.8)
[2024-10-06] MEDS: Budesonide 0.5 MG/2 ML AMPUL.NEB INHALE (08:18)
[2024-10-06] MEDS: Memantine HCl 5 MG TABLET PO ×2 (08:46→20:18)
[2024-10-06] MEDS: Metoprolol Succinate ER 50 MG TAB.ER.24H PO ×2 (08:47→20:17)
[2024-10-06] MEDS: Calcium + Vitamin D 250 MG TABLET PO ×2 (08:47→20:17)
[2024-10-06] MEDS: 0.9 % Sodium Chloride Flush 3 ML SYRINGE IVFLUSH ×3 (08:47→20:18)
[2024-10-06] MEDS: Donepezil HCl 10 MG TABLET PO (08:47)
--- NOTE | 2024-10-06 10:53 | HO.POSTANES ---
Post Anesthesia Evaluation Post Anesthesia Evaluation Date of Service: 10/06/24 Vital Signs: Vital Signs Temp Pulse Resp BP Pulse Ox O2 Del Method 10/06/24 08:15 70 16 10/06/24 07:50 98.7 F 61 18 150/68 H 94 Room Air 10/06/24 03:16 97.4 F 63 18 168/75 H 96 Room Air 10/05/24 23:56 98.3 F 69 18 128/74 100 Room Air Anesthesia: Monitored Mental Status: Awake Pain Control: Satisfactory Nausea/Vomiting: None Hydration: Adequate Anesthesia-Related Issues: No Anes. Related Issues
--- NOTE | 2024-10-06 12:30 | PC.NURSE ---
Patient reported diarrhea x 3,feeling weak,SOB,BP 155/68 pulse 66,resp 20,sat 97% on RA,JANES Hendrickson notified
--- NOTE | 2024-10-06 13:05 | MHC.CM.PN ---
per vaishnavi pt may be ready for dc today plan remains for home
[2024-10-06] MEDS: Morphine Sulfate 4 MG/ML CARTRIDGE 2 MG IVPUSH (14:07)
--- NOTE | 2024-10-06 15:47 | P.PNIM_ITS ---
Subjective Subjective Date of Service: 10/06/24 Interval History: seen and examined this morning follow up for rectal bleeding, colitis reporting lower abdominal pain today Physical Exam 2 Vital Signs: Vital Signs: Last Vital Signs Temp 98.1 F 10/06/24 15:23 Pulse 64 10/06/24 15:23 Resp 18 10/06/24 15:23 BP 156/74 H 10/06/24 15:23 Pulse Ox 97 10/06/24 15:23 O2 Del Method Room Air 10/06/24 15:23 BMI result Body Mass Index 26.1 Const: General: cooperative, alert and awake Nutritional Appearance: a verage body habitus Orientation/consciousness: patient oriented x3 Resp: Effort & Inspection: normal respiratory effort, able to speak in complete sentences, no respiratory distress and no use of accessory muscles Cardio: Rate: regular rate GI: Other: mild lower abdominal tenderness Palpation (GI): Soft to palpation Neuro: General: patient oriented x3, moves all extremities and CN's II-XI intact bilaterally Extrem: General: Yes no pedal edema Objective Data Active Medications Acetaminophen (Acetaminophen 325 Mg Tablet) 650 mg PO Q6H PRN PRN Reason: Pain, Mild 1-3,fever,headache Albuterol/Ipratropium (Albuterol/Iprat 2.5/0.5mg 3 Ml Ampul.Neb) 3 ml INHALE DAILY [facility] Last Admin: 10/06/24 07:36 Dose: 3 ml Documented By: REBECA Atorvastatin Calcium (Atorvastatin Calcium 40 Mg Tablet) 40 mg PO BEDTIME [facility] Last Admin: 10/05/24 20:27 Dose: 40 mg Documented By: DEVI Budesonide (Budesonide 0.5 Mg/2 Ml Ampul.Neb) 0.5 mg INHALE DAILY [facility] Last Admin: 10/06/24 08:18 Dose: 0.5 mg Documented By: REBECA Calcium Carbonate (Calcium Carbonate 750 Mg Tab.Chew) 750 mg PO Q4H PRN PRN Reason: Heartburn Calcium Carbonate/Cholecalciferol (Calcium + Vitamin D 250 Mg Tablet) 250 mg PO BID [facility] Last Admin: 10/06/24 08:47 Dose: 250 mg Documented By: GWEN Ceftriaxone Sodium (Ceftriaxone Sodium 1 Gm Vial) 1 gm IVPUSH Q24H [facility] Last Admin: 10/05/24 18:22 Dose: 1 gm Documented By: TREMAINE Donepezil HCl (Donepezil Hcl 10 Mg Tablet) 10 mg PO DAILY [facility] Last Admin: 10/06/24 08:47 Dose: 10 mg Documented By: GWEN Famotidine (Famotidine 20 Mg Tablet) 40 mg PO BEDTIME [facility] Last Admin: 10/05/24 20:29 Dose: 40 mg Documented By: DEVI Metronidazole (Flagyl) 500 mg in 100 mls @ 100 mls/hr IV Q8H [facility] Last Infusion: 10/06/24 11:00 Dose: Infused Documented By: GWEN Magnesium Hydroxide (Milk Of Magnesia 30 Ml Oral.Susp) 30 ml PO DAILY PRN PRN Reason: Constipation Melatonin (Melatonin 3 Mg Tablet) 6 mg PO BEDTIME PRN PRN Reason: Insomnia Memantine (Memantine Hcl 5 Mg Tablet) 5 mg PO BID [facility] Last Admin: 10/06/24 08:46 Dose: 5 mg Documented By: GWEN Metoprolol Succinate (Metoprolol Succinate Er 50 Mg Tab.Er.24h) 50 mg PO BID [facility]; Protocol Last Admin: 10/06/24 08:47 Dose: 50 mg Documented By: GWEN Morphine Sulfate (Morphine Sulfate 4 Mg/Ml Cartridge) 2 mg IVPUSH Q4H PRN; Protocol PRN Reason: Pain, Severe (Pain Scale 7-10) Last Admin: 10/06/24 14:07 Dose: 2 mg Documented By: GWEN Naloxone HCl (Naloxone Hcl 0.4 Mg/Ml Vial) 0.04 mg IVPUSH Q5M PRN PRN Reason: Excessive sedation or RR < 8 Ondansetron HCl (Ondansetron Hcl 4 Mg/2 Ml Vial) 4 mg IVPUSH Q8H PRN PRN Reason: Nausea and Vomiting Pantoprazole Sodium (Pantoprazole Sodium 20 Mg Tablet.Dr) 40 mg PO DAILY@0630 [facility] Last Admin: 10/06/24 06:25 Dose: 40 mg Documented By: DEVI Sodium Chloride (0.9 % Sodium Chloride Flush 3 Ml Syringe) 3 ml IVFLUSH QSHIFT [facility] Last Admin: 10/06/24 08:47 Dose: 3 ml Documented By: GWEN Labs 10/06/24 07:32 10/05/24 05:43 Labs: Laboratory Results - last 24 hr 10/06/24 07:32 MCV 90.5 MCH 29.8 MCHC 33.0 RDW 13.2 Plt Count 170 MPV 12.1 Absolute Nucleated RBC 0.000 Nucleated RBC % (auto) 0.0 Assessment and Plan (1) Lower gastrointestinal hemorrhage: Status: Acute Plan This is a 78-year-old female with pertinent history of CVA, CAD, paroxysmal atrial fibrillation on Eliquis, mood disorder, cognitive impairment, gastroesophageal reflux disease, hypertension who presents to the emergency department for evaluation of bright red blood in stools. Acute lower GI bleed: Kcentra given in the ER GI was consulted> s/p colonoscopy showing diverticulosis and left sided colitis; no active bleeding started on ceftriaxone, Flagyl 1/2 hold eliquis x 1 week didn't tolerate full diet, will reduce to full liquids H/H stable, no further bleeding colitis diffuse thickening of musocsa of distal transverse/descending and sigmoid colon plan for colonoscopy today abx as above mild transaminitis improving History of CVA/CAD: Hold aspirin in the setting of GI bleed Paroxysmal atrial fibrillation: Hold Eliquis. continue metoprolol Cognitive impairment: Maintain sleep-wake cycle continue aricept, namenda Gastroesophageal reflux disease: continue pepcid, PPI Hypertension: Hold Lisinopril in the setting of GI bleed continue metoprolol DVT prophylaxis: Mechanical due to GI bleeding; eliquis on hold Full code requires ongoing hospital stay for management of GI bleed, close monitoring of hemodynamics (as above), which is not possible in a lesser acute Quality Stroke Does the patient have a stroke diagnosis?: No VTE Prior VTE?: No VTE Risk Level:: Medical - moderate - high VTE Device Contraindication: N/A - Device Ordered VTE Drug Contraindication: Treatment Not Indicated
[2024-10-06] MEDS: cefTRIAXone sodium 1 GM VIAL IVPUSH (16:14)
[2024-10-06] MEDS: Atorvastatin Calcium 40 MG TABLET PO (20:17)
[2024-10-06] MEDS: Famotidine 20 MG TABLET 40 MG PO (20:17)
[2024-10-07] VITALS (9 sets, daily range): BP systolic 143–173; BP diastolic 65–74; PULSE 61–72; RESP 17–18; TEMP 36.1–37.2; O2SAT 92–99
[2024-10-07] MEDS: metroNIDAZOLE/NS 500 MG/100 ML PIGGYBACK 100 MG IV ×3 (01:18→17:59)
[2024-10-07] MEDS: Pantoprazole Sodium 20 MG TABLET.DR 40 MG PO (05:13)
[2024-10-07] MEDS: Budesonide 0.5 MG/2 ML AMPUL.NEB INHALE (07:32)
[2024-10-07] MEDS: Albuterol/Iprat 2.5/0.5MG 3 ML AMPUL.NEB INHALE (07:32)
[2024-10-07] MEDS: Memantine HCl 5 MG TABLET PO ×2 (08:02→20:22)
[2024-10-07] MEDS: Donepezil HCl 10 MG TABLET PO (08:02)
[2024-10-07] MEDS: Metoprolol Succinate ER 50 MG TAB.ER.24H PO ×2 (08:02→20:22)
[2024-10-07] MEDS: Calcium + Vitamin D 250 MG TABLET PO ×2 (08:02→20:22)
[2024-10-07] MEDS: 0.9 % Sodium Chloride Flush 3 ML SYRINGE IVFLUSH ×3 (08:04→20:23)
--- NOTE | 2024-10-07 08:18 | P.PNIM_ITS ---
Subjective Subjective Date of Service: 10/07/24 Interval History: seen and examined this morning follow up for rectal bleeding, colitis reporting lower abdominal pain today Physical Exam 2 Vital Signs: Vital Signs: Last Vital Signs Temp 99 F 10/07/24 07:28 Pulse 66 10/07/24 07:32 Resp 18 10/07/24 07:32 BP 147/73 H 10/07/24 07:28 Pulse Ox 94 10/07/24 07:28 O2 Del Method Room Air 10/07/24 07:28 BMI result Body Mass Index 26.1 Appearing in no acute distress lung sounds are clear to auscultation heart regular rate rhythm, clear S1, S2 positive bowel sounds, abdomen is soft, diffuse tenderness neuro patient is alert x3, no focal deficits Objective Data Active Medications Acetaminophen (Acetaminophen 325 Mg Tablet) 650 mg PO Q6H PRN PRN Reason: Pain, Mild 1-3,fever,headache Albuterol/Ipratropium (Albuterol/Iprat 2.5/0.5mg 3 Ml Ampul.Neb) 3 ml INHALE DAILY [facility] Last Admin: 10/07/24 07:32 Dose: 3 ml Documented By: NARCISA Atorvastatin Calcium (Atorvastatin Calcium 40 Mg Tablet) 40 mg PO BEDTIME [facility] Last Admin: 10/06/24 20:17 Dose: 40 mg Documented By: MADELYN Budesonide (Budesonide 0.5 Mg/2 Ml Ampul.Neb) 0.5 mg INHALE DAILY [facility] Last Admin: 10/07/24 07:32 Dose: 0.5 mg Documented By: NARCISA Calcium Carbonate (Calcium Carbonate 750 Mg Tab.Chew) 750 mg PO Q4H PRN PRN Reason: Heartburn Calcium Carbonate/Cholecalciferol (Calcium + Vitamin D 250 Mg Tablet) 250 mg PO BID [facility] Last Admin: 10/07/24 08:02 Dose: 250 mg Documented By: ALESSANDRA Ceftriaxone Sodium (Ceftriaxone Sodium 1 Gm Vial) 1 gm IVPUSH Q24H [facility] Last Admin: 10/06/24 16:14 Dose: 1 gm Documented By: GWEN Donepezil HCl (Donepezil Hcl 10 Mg Tablet) 10 mg PO DAILY [facility] Last Admin: 10/07/24 08:02 Dose: 10 mg Documented By: ALESSANDRA Famotidine (Famotidine 20 Mg Tablet) 40 mg PO BEDTIME [facility] Last Admin: 10/06/24 20:17 Dose: 40 mg Documented By: MADELYN Metronidazole (Flagyl) 500 mg in 100 mls @ 100 mls/hr IV Q8H [facility] Last Infusion: 10/07/24 02:21 Dose: Infused Documented By: MADELYN Magnesium Hydroxide (Milk Of Magnesia 30 Ml Oral.Susp) 30 ml PO DAILY PRN PRN Reason: Constipation Melatonin (Melatonin 3 Mg Tablet) 6 mg PO BEDTIME PRN PRN Reason: Insomnia Memantine (Memantine Hcl 5 Mg Tablet) 5 mg PO BID [facility] Last Admin: 10/07/24 08:02 Dose: 5 mg Documented By: ALESSANDRA Metoprolol Succinate (Metoprolol Succinate Er 50 Mg Tab.Er.24h) 50 mg PO BID [facility]; Protocol Last Admin: 10/07/24 08:02 Dose: 50 mg Documented By: ALESSANDRA Morphine Sulfate (Morphine Sulfate 4 Mg/Ml Cartridge) 2 mg IVPUSH Q4H PRN; Protocol PRN Reason: Pain, Severe (Pain Scale 7-10) Last Admin: 10/06/24 14:07 Dose: 2 mg Documented By: GWEN Naloxone HCl (Naloxone Hcl 0.4 Mg/Ml Vial) 0.04 mg IVPUSH Q5M PRN PRN Reason: Excessive sedation or RR < 8 Ondansetron HCl (Ondansetron Hcl 4 Mg/2 Ml Vial) 4 mg IVPUSH Q8H PRN PRN Reason: Nausea and Vomiting Pantoprazole Sodium (Pantoprazole Sodium 20 Mg Tablet.) 40 mg PO DAILY@0630 [facility] Last Admin: 10/07/24 05:13 Dose: 40 mg Documented By: MADELYN Sodium Chloride (0.9 % Sodium Chloride Flush 3 Ml Syringe) 3 ml IVFLUSH QSHIFT [facility] Last Admin: 10/07/24 08:04 Dose: 3 ml Documented By: ALESSANDRA Labs 10/06/24 07:32 10/05/24 05:43 Assessment and Plan (1) Lower gastrointestinal hemorrhage: Status: Acute Plan This is a 78-year-old female with pertinent history of CVA, CAD, paroxysmal atrial fibrillation on Eliquis, mood disorder, cognitive impairment, gastroesophageal reflux disease, hypertension who presents to the emergency department for evaluation of bright red blood in stools. Acute lower GI bleed Kcentra given in the ER GI was consulted> s/p colonoscopy showing diverticulosis and left sided colitis; no active bleeding started on ceftriaxone, Flagyl 1/2 hold eliquis x 1 week H/H stable, no further bleeding advance to low fat, bland diet colitis diffuse thickening of musocsa of distal transverse/descending and sigmoid colon abx as above mild transaminitis improving History of CVA/CAD Hold aspirin in the setting of GI bleed Paroxysmal atrial fibrillation: Hold Eliquis. continue metoprolol Cognitive impairment Maintain sleep-wake cycle continue aricept, namenda Gastroesophageal reflux disease: continue pepcid, PPI Hypertension: Hold Lisinopril in the setting of GI bleed continue metoprolol DVT prophylaxis: Mechanical due to GI bleeding; eliquis on hold Full code requires ongoing hospital stay for management of GI bleed, close monitoring of hemodynamics (as above), which is not possible in a lesser acute Quality Stroke Does the patient have a stroke diagnosis?: No VTE Prior VTE?: No VTE Risk Level:: Medical - moderate - high VTE Device Contraindication: N/A - Device Ordered VTE Drug Contraindication: Treatment Not Indicated
[2024-10-07] MEDS: ondansetron HCL 4 MG/2 ML VIAL IVPUSH (11:05)
[2024-10-07] MEDS: cefTRIAXone sodium 1 GM VIAL IVPUSH (17:11)
[2024-10-07] MEDS: Acetaminophen 325 MG TABLET 650 MG PO (19:38)
[2024-10-07] MEDS: Atorvastatin Calcium 40 MG TABLET PO (20:22)
[2024-10-07] MEDS: Famotidine 20 MG TABLET 40 MG PO (20:22)
[2024-10-08] MEDS: metroNIDAZOLE/NS 500 MG/100 ML PIGGYBACK 100 MG IV ×2 (01:29→09:02)
[2024-10-08 03:27] VITALS: BP 142/65; PULSE 54; RESP 18; TEMP 36.3; O2SAT 93
[2024-10-08] MEDS: Pantoprazole Sodium 20 MG TABLET.DR 40 MG PO (05:46)
[2024-10-08 07:38] VITALS: BP 149/68; PULSE 59; RESP 18; TEMP 36.3; O2SAT 94
[2024-10-08] MEDS: Albuterol/Iprat 2.5/0.5MG 3 ML AMPUL.NEB INHALE (07:50)
[2024-10-08] MEDS: Budesonide 0.5 MG/2 ML AMPUL.NEB INHALE (07:50)
[2024-10-08 07:51] VITALS: PULSE 61; RESP 18; O2SAT 91
[2024-10-08] MEDS: Donepezil HCl 10 MG TABLET PO (08:26)
[2024-10-08] MEDS: Memantine HCl 5 MG TABLET PO (08:26)
[2024-10-08] MEDS: Metoprolol Succinate ER 50 MG TAB.ER.24H PO (08:26)
[2024-10-08] MEDS: Calcium + Vitamin D 250 MG TABLET PO (08:26)
[2024-10-08] MEDS: 0.9 % Sodium Chloride Flush 3 ML SYRINGE IVFLUSH (08:28)
--- NOTE | 2024-10-08 08:37 | P.DS_ITS ---
DS: Providers Provider Date of Service: 10/08/24 Date of admission: 10/05/24 02:18 Date of discharge: 10/08/24 Primary care physician: Yeny Rosenthal MD Consults: 10/05/24 02:18 Consult to Gastroenterology Routine Consulting Provider: Marcie Whitaker Reason for consultation: GI bleed DS: Diagnosis Discharge Diagnosis (1) Lower gastrointestinal hemorrhage: Status: Acute DS: Summary Hospital Course Hospital Course: History and physical as per admitting provider. This is a 78-year-old female with pertinent history of CVA, CAD, paroxysmal atrial fibrillation on Eliquis, mood disorder, cognitive impairment, gastroesophageal reflux disease, hypertension who presents to the emergency department for evaluation of bright red blood in stools. Patient states her symptoms started 1 day prior to presentation. She has had more than 5 episodes of bright red blood in stools. This has never happened before. Also has associated lower abdominal pain, nonprogressive, nonradiating. Her last colonoscopy was in 2022 and it was normal as per the patient. No fever, chills, chest pain, palpitations, shortness of breath, changes in urinary habits. In the emergency department, bleeding scan with suspected active GI bleed within the proximal sigmoid colon. Patient was given Kcentra and Gastroenterology consulted. 78-year-old woman treated for acute lower GI bleed, Kcentra given in the ER, she was seen evaluated by Gastroenterology and is status post colonoscopy showing diverticulosis and left-sided colitis with no active bleeding. She was started on ceftriaxone and Flagyl. Her Eliquis is to be held for 1 week. Her H&H has been stable with no further episodes of bleeding. She was started on low-fat bland diet but she reports chronically she has very little appetite, she make smoothies and drinks protein shakes at home. She reported that pain has resolved significantly. She should follow up with a magnetic tester for any further issues with abdominal pain. She was noted to have mild transaminitis which has also improved. History of CVA/CAD. Aspirin stopped due to GI bleed Paroxysmal atrial fibrillation. Continue metoprolol. Hold Eliquis until 10/10/2024 Cognitive impairment. Continue Aricept and Namenda GERD. Continue PPI Hypertension. Continue lisinopril and metoprolol Time Attestation Discharge Coordination Time (in mins): 42 Quality: Safe Use of Opioids Does Pt have an Active Cancer Diagnosis on the Problem List?: No Quality: Stroke Does the patient have a stroke diagnosis?: No Physical Exam Vital Signs: Vital Signs: Last Vital Signs Temp 97.4 F 10/08/24 07:38 Pulse 61 10/08/24 07:51 Resp 18 10/08/24 07:51 BP 149/68 H 10/08/24 07:38 Pulse Ox 94 10/08/24 07:38 O2 Del Method Room Air 10/08/24 07:38 BMI result Body Mass Index 26.1 Appearing in no acute distress head is normocephalic atraumatic eyes pupils are PERRLA sclera is anicteric mouth throat mucous membranes are intact and moist neck is supple no lymphadenopathy, no JVD noted lung sounds are clear to auscultation heart regular rate rhythm, clear S1, S2 positive bowel sounds, abdomen is soft, nontender neuro patient is alert x3, no focal deficits DS: Data Data Completed and Pending Pending studies at discharge: Pending at discharge 10/05/24 15:11 Surgical [PTH] Routine Discharge Plan Discharge Anticipated Discharge Date/Time: 10/08/24 08:30 Patient Disposition: Home, Self-Care Discharge Diagnosis: Acute lower GI bleed Colitis Mild transaminitis Referrals: Yeny Bay MD [Primary Care Provider] - 1 Week Discharge Medications: New oxycodone 5 mg tablet 5 mg PO Q8H PRN (Reason: pain) Qty: 9 0RF Rx Instructions: Partial Fill upon patient request. cefuroxime axetil 250 mg tablet 250 mg PO BID Qty: 4 0RF metronidazole [Flagyl] 375 mg capsule 375 mg PO BID Qty: 4 0RF Continued (DME) compress.stocking,knee,reg,med Misc See Rx Instructions .Route Qty: 2 0RF Rx Instructions: As directed (DME) Shower Chair Misc See Rx Instructions .Route Qty: 1 0RF Rx Instructions: As directed (DME) Grab bar Misc See Rx Instructions .Route Qty: 2 0RF Rx Instructions: As directed (DME) toilet frame See Rx Instructions .Route .MEDSUPPLY Qty: 1 0RF Rx Instructions: As directed (DME) handheld showerhead See Rx Instructions .Route .MEDSUPPLY Qty: 1 0RF Rx Instructions: As directed (DME) Ultra-Light Rollator Misc See Rx Instructions .Route Qty: 1 0RF Rx Instructions: As directed (DME) underpads [Bed Underpads] Pad See Rx Instructions .Route Qty: 100 6RF Rx Instructions: As directed (DME) incontinence pads regular See Rx Instructions .Route .MEDSUPPLY Qty: 240 6RF Rx Instructions: As directed calcium carbonate-vitamin D3 [Calcium 500 With D] 500 mg-10 mcg (400 unit) tablet 1 tab PO BID 90 Days Qty: 180 2RF atorvastatin 40 mg tablet 40 mg PO BEDTIME Qty: 90 1RF lisinopril 40 mg tablet 40 mg PO DAILY Qty: 90 3RF metoprolol succinate 50 mg tablet extended release 24 hr 50 mg PO BID Qty: 180 1RF famotidine 40 mg tablet 40 mg PO BEDTIME Qty: 90 1RF pantoprazole 40 mg tablet,delayed release (DR/EC) 40 mg PO QAM Qty: 90 0RF ipratropium-albuterol 0.5 mg-3 mg(2.5 mg base)/3 mL solution for nebulization 3 ml inhalation DAILY 30 Days Qty: 90 0RF donepezil 10 mg tablet 10 mg PO DAILY memantine 5 mg tablet 5 mg PO BID meclizine 25 mg tablet 25 mg PO BID PRN (Reason: dizziness) Qty: 30 0RF budesonide 0.5 mg/2 mL suspension for nebulization 0.5 mg inhalation DAILY 30 Days Qty: 60 2RF Held Eliquis 5 mg tablet 5 mg PO BID Qty: 60 7RF Hold Instructions: Resume on 10/10/24. Discharge Orders: Discharge Order (Routine); Ordered 10/08/24 Ordered By: Essence Ferguson Diet: Advance to usual diet Activity on Discharge: As tolerated Stand Alone Forms: Patient Portal Discharge page Print Language: Belarusian Care Plan Goals: Follow-up with magnetic tester as needed Resume Angel on 10/10/24 Health Concerns: Acute lower GI bleed Colitis Mild transaminitis Plan of Treatment: Follow-up with primary care provider as needed Take all medications as prescribed Assessment: See discharge summary Discharge Date/Time: 10/08/24 11:08
--- NOTE | 2024-10-08 10:05 | MHC.CM.PN ---
CM met with patient to discuss dc via home service technician. Patient medically cleared for dc home. Will resume ST[employer] REPLENISHER services tomorrow. Friend will provide transport ~10:30. RN aware. IMM delivered.
[2024-10-08] MEDS: ondansetron HCL 4 MG/2 ML VIAL IVPUSH (10:30)
== END 2024-10-08 11:08 | disposition home or self-care (01) | DRG 378 ==
LOC: HO.ED 10-05 02:07 → HO.EDOVER 10-05 03:14 → HO.IMC 10-05 10:46 → HO.S3 10-05 19:19
PROVIDERS: Internal Medicine Gastroenterology; Physician Assistant; Physician Assistant Medical; Admitting Provider Student in an Organized Health Care Education/Training Program; Emergency Provider Internal Medicine; PCP Internal Medicine; Visit Provider Nurse Practitioner Acute Care
PROC: 0DJD8ZZ Inspection of Lower Intestinal Tract, Via Natural or Artificial Opening Endoscopic (ICD-10-PCS; CPT 45378; principal; 2024-10-05 14:50)
DX: K57.31 Diverticulosis of large intestine without perforation or abscess with bleeding (principal); K55.9 Vascular disorder of intestine, unspecified; I25.10 Atherosclerotic heart disease of native coronary artery without angina pectoris; I48.0 Paroxysmal atrial fibrillation; I10 Essential (primary) hypertension; Z79.01 Long term (current) use of anticoagulants; Z79.899 Other long term (current) drug therapy
CPT/HCPCS: 36415; 74178; 80048; 80053; 80076; 83690; 85014; 85018; 85025; 85027; 85610; 86850; 86900; 86901; 88305; 93005; 94640; 99285; J0696; J1836; J2003; J2270; J2371; J2405; J2704; J7120; J7168; Q9967

== ENCOUNTER → 2024-10-04 17:52 | Outpatient (BNV) | payer OTHER, SELFPAY | PROVIDERS: Emergency Provider Internal Medicine; PCP Internal Medicine; Visit Provider Radiology Diagnostic Radiology | DX: K57.31 Diverticulosis of large intestine without perforation or abscess with bleeding (principal) | CPT/HCPCS: 74178 ==

== ENCOUNTER 2024-10-05 02:18 | Outpatient (BNV) | payer OTHER, SELFPAY | END 2024-10-05 07:31 | PROVIDERS: Admitting Provider Student in an Organized Health Care Education/Training Program; Emergency Provider Internal Medicine; PCP Internal Medicine; Visit Provider Internal Medicine Cardiovascular Disease | DX: R94.31 Abnormal electrocardiogram [ECG] [EKG] (principal) | CPT/HCPCS: 93010 ==

== ENCOUNTER → 2024-10-05 02:18 | Outpatient (BNV) | payer OTHER, SELFPAY | PROVIDERS: Admitting Provider Student in an Organized Health Care Education/Training Program; Emergency Provider Internal Medicine; PCP Internal Medicine; Visit Provider Student in an Organized Health Care Education/Training Program | DX: K92.2 Gastrointestinal hemorrhage, unspecified (principal) | CPT/HCPCS: 99223; 99232; 99499 ==

== ENCOUNTER → 2024-10-05 02:18 | Outpatient (BNV) | payer OTHER, SELFPAY | PROVIDERS: Admitting Provider Student in an Organized Health Care Education/Training Program; Emergency Provider Internal Medicine; PCP Internal Medicine; Visit Provider Internal Medicine Gastroenterology | DX: K92.2 Gastrointestinal hemorrhage, unspecified (principal) | CPT/HCPCS: 99499 ==

== ENCOUNTER 2024-10-13 14:57 | Outpatient (AMB) | payer OTHER, SELFPAY ==
--- NOTE | 2024-10-13 15:03 | A.OFFPC_ITS ---
Vital Signs 10/13/24 15:05 Height 5 ft 4 in Weight 152 lb 8 oz BMI 26.2 BP 140/76 H Blood Pressure Location Lt brachial Position Sitting Pulse 82 Pulse Source Pulse Oximeter Temp 98.4 F Temp Source Oral Pulse Oximetry (%) 96 Oxygen Delivery Method Room Air Intake Visit Reasons: TCM [facility] GI Bleed 10/08 Intake Note: Patient is here for hospital discharge and TCM follow up. Patient was discharged from [facility] on 10/08/24. Tyre Finisher And Examiner Required: Yes Tyre Finisher And Examiner Language: Family Court Justice Name: Tatiana [id number] Information Interpreted: non-clinical & clinical Senior Statistical Programmer: Not Required per policy Accompanied by: Self / Same As Patient Allergies oxycodone [From Percocet] Allergy (Intermediate, Verified 10/14/24 13:51) Agitated Medication List - Last Reconciled 10/13/24 by RONEL Fraser apixaban (Eliquis) 5 mg PO BID atorvastatin 40 mg PO BEDTIME budesonide 0.5 mg (2 mL) inhalation DAILY 30 days calcium carbonate-vitamin D3 500 mg-10 mcg (400 unit) (Calcium 500 With D) 1 tab PO BID 90 days compress.stocking,knee,reg,med As directed donepezil 10 mg PO DAILY famotidine 40 mg PO BEDTIME Grab bar As directed [handheld showerhead As directed] [incontinence pads As directed] ipratropium-albuterol 0.5 mg-3 mg(2.5 mg base)/3 mL 3 mL inhalation DAILY 30 days lisinopril 40 mg PO DAILY meclizine 25 mg PO BID PRN memantine 5 mg PO BID metoprolol succinate ER 50 mg PO BID metronidazole (Flagyl) 375 mg PO BID oxycodone 5 mg PO Q8H PRN pantoprazole 40 mg PO QAM Shower Chair As directed [toilet frame As directed] underpads (Bed Underpads) As directed walker (Ultra-Light Rollator misc) As directed Tobacco use date assessed: 10/13/24 Fall risk assessment: No Falls in past year Last assessed Fall Risk: 10/13/24 Dental Screening Dental Screen Date: 10/13/24 Did you have a dental visit in the last 12 months?: No Did you have a dental problem in the last 6 months where you did not have access to dental care?: No Was dental information given to patient?: No HPI TCM [facility] GI Bleed 10/08 HPI Details The patient is a 78 will female with significant past medical history PAF on eliquis, Schatzki's ring, CAD, Depression, Hypersomnia, cognitive impairment, GERD, vocal cord dysfunction, Asthma, dyspnea on exertion, Essential hypertension, lumbar radiculopathy, Atherosclerotic cardiovascular disease. Patient of Dr. Chacon, she was last seen in the office on 07/11/24. The patient went to [facility] ER on 10/05/24 for more than 5 episodes of bloody stools. Per ER note, the symptoms started 1 day prior. She was also having abdominal pain. CT abdomen with and without contrast The patient reports that she has been having diarrhea before going into the hospital. She only went to the hospital because she started bleeding. Reports that she started having heart burn after leaving the hospital. She also complain of chest and sob, she touch the epigastric region when complaining about the chest pain. When asked to describe the chest pain, the patient said it feels like burning in her chest. The patient currently on pantrozole 40 mg in the morning and famotidine 40 mg at bedtime. The patient states, that her medications are prepared and for her. EKG done in office, negative for any acute findings. Hospital note: 78-year-old woman treated for acute lower GI bleed, Kcentra given in the ER, she was seen evaluated by Gastroenterology and is status post colonoscopy showing diverticulosis and left-sided colitis with no active bleeding. She was started on ceftriaxone and Flagyl. Her Eliquis is to be held for 1 week. Her H&H has been stable with no further episodes of bleeding. She was started on low-fat bland diet but she reports chronically she has very little appetite, she make smoothies and drinks protein shakes at home. She reported that pain has resolved significantly. She should follow up with a cutting supervisor for any further issues with abdominal pain. She was noted to have mild transaminitis which has also improved TCM TCM Information Date of Discharge 10/08/24 Discharged From [facility] Interactive Contact Date (Reference documentation from this date) 10/13/24 [facility] Medical History (Updated 10/17/24 @ 17:28 by Dutch Caballero MD) Colitis Schatzki's ring Depression Hypersomnia Snoring Cognitive impairment History of CVA (cerebrovascular accident) Afib Acute CVA (cerebrovascular accident) IBS (irritable bowel syndrome) Abdominal hyperesthesia Dyspepsia Osteoarthritis of lumbar spine Scoliosis GERD (gastroesophageal reflux disease) HTN (hypertension) Surgical History Status post ablation of incompetent vein using laser (06/12/22) Hx of hysterectomy H/O oophorectomy H/O bilateral breast reduction surgery Family History Son HTN (hypertension) Father No problems noted. Mother No problems noted. Social History Household Members: None Housing: Apartment Are you a primary director of home care hospice to a significant other at home: No Do you presently have visiting nurse or other home services: No Alcohol intake: never Patient Tobacco Use Status: Never used Tobacco e-Cigarette/Vaping Use: Never Used Second Hand Smoke Exposure: No Advance Directives Date on File: 08/13/21 service: No Current occupational status: disabled Cognitive needs: No Hearing needs: No Vision needs: Yes (Glasses) Questionnaire PHQ-9 Over the last 2 weeks, how often have you been bothered by any of the following problems? 1. Little interest or pleasure in doing things: not at all 2. Feeling down, depressed, or hopeless: not at all 3. Trouble falling or staying asleep, or sleeping too much: not at all 4. Feeling tired or having little energy: not at all 5. Poor appetite or overeating: not at all 6. Feeling bad about yourself - or that you are a failure or have let yourself or your family down: not at all 7. Trouble concentrating on things, such as reading the newspaper or watching television: not at all 8. Moving or speaking so slowly that other people could have noticed. Or the opposite - being so fidgety or restless that you have been moving around a lot more than usual: not at all 9. Thoughts that you would be better off or of hurting yourself in some way: not at all Total score: 0 Depression Screening Interpretation: Negative Depression Screening Done: Yes 59810 - PHQ-9 Billing: Yes Source: Developed by Drs. Jacinto Yee, Lucia Garcia, Rigoberto Love and colleagues, with an educational jovani from [employer]. Thrive Questionnaire Date Thrive assessed: 10/05/24 AUDIT C Alcohol Use Questionnaire (AUDIT-C) 1. How often do you have a drink containing alcohol?: Never Total Score: 0 Score Reviewed/Action Taken: Yes SINCERE-7 AMB Questionnaire SINCERE-7 Date SINCERE - 7 assessed: 10/13/24 Feeling nervous, anxious, or on edge: 0 = Not at all Not being able to stop or control worryin = Not at all Worrying too much about different things: 0 = Not at all Trouble relaxin = Not at all Being so restless that it is hard to sit still: 0 = Not at all Becoming easily annoyed or irritable: 0 = Not at all Feeling afraid as if something awful might happen: 0 = Not at all Total SINCERE-7 score (0-4 normal; 5-9 mild; 10-14 moderate; 15-21 severe): 0 Source: Developed by Drs. Jacinto Yee, Lucia Garcia, Rigoberto Love and colleagues, with an educational jovani from [employer]. Review of Systems Const Details: Denies chills, Denies fatigue, Denies fever(s), Denies headache(s) and Denies weakness HEENT Denies change in vision, Denies dizziness, Denies headache(s), Denies hearing loss, Denies nasal congestion, Denies sinus pain, Denies sinus pressure and Denies sore throat Card Report chest pain (feels burning), Denies lightheadedness, reports recurrent dyspnea and Denies other (palpitations) Resp Denies cough, Denies dyspnea and Denies wheezing GI reports abdominal pain (points to the epigastric region, Denies melena, Denies hematochezia, Denies change in bowel habits, reports dyspepsia and nausea, denies vomiting Denies hematuria and Denies dysuria Musc Denies abnormal gait, Denies myalgias, Denies arthralgias, Denies numbness and Denies tingling Skin/Breast Denies rash, Denies unusual bruising and Denies wounds Neuro Denies abnormal gait, Denies dizziness, Denies headache(s), Denies memory loss, Denies numbness, Denies Sensory deficit (Neuro), Denies tingling and Denies weakness Psych Denies anxiety, Denies depression and Denies memory loss Endo Denies cold intolerance, Denies fatigue, Denies heat intolerance, Denies polydipsia and Denies polyuria Eric/Lymph Denies easy bleeding and Denies easy bruising Aller/Immun Denies wheezing Physical exam (Primary Care) Vital Signs: Last Vital Signs Temp 98.4 F 10/13/24 15:05 Pulse 82 10/13/24 15:05 BP 140/76 H 10/13/24 15:05 Pulse Ox 96 10/13/24 15:05 Oxygen Delivery Method Room Air 10/13/24 15:05 BMI result Body Mass Index 26.2 Tobacco/Smoking Status: Tobacco use Status Tobacco use date assessed 10/13/24 10/13/24 15:12 Patient Tobacco Use Status Never used Tobacco 10/13/24 15:04 e-Cigarette/Vaping Use Never Used 10/13/24 15:04 PHQ-9: PHQ-9 Score PHQ-9: Total score 0 10/14/24 13:54 Depression Screening Interpretation: Negative Thrive Assessment: Date of Thrive Assessment Date Thrive assessed 10/05/24 10/13/24 15:04 Const Other: General: no acute distress, well developed, alert and awake Nutritional Appearance: well nourished Orientation/consciousness: patient oriented x3 HENMT Head: Yes normocephalic and Yes atraumatic Mouth: Normal oral and palatal mucosa present and moist mucous membranes Eyes Pupils: Equal, round and reactive pupils present and Pupil accommodation reflex normal Neck Neck: Yes normal visual inspection, Yes no lymphadenopathy and Yes trachea midline Chest Chest palpation & inspection: normal inspection of the chest Resp Effort & Inspection: normal respiratory effort Auscultation: clear to auscultation bilaterally Cardio Rate: regular rate Rhythm: regular rhythm Heart sounds: S1 normal heart sound present, S2 normal heart sound present, no gallops, no murmurs and no rubs GI Palpation (GI): No Abdominal aortic bruit present, Soft to palpation, +epigastric tenderness with palpitation, No hepatosplenomegaly present and No Rebound tenderness present Auscultation: normal bowel sounds General: Yes no CVA tenderness Back/Spine/Pelvis Back: no CVA tenderness Skin General: warm and dry. Normal skin color. Normal skin turgor Lesions: no lesions Neuro General: patient oriented x3, gait normal Cognition (Neuro): normal cognition Gait exam (Neuro): Normal gait present Motor exam (neuro): 5/5 motor strength present throughout Extrem General: Yes normal to inspection, No edema and No calf tenderness Psych Appearance: grossly normal Affect: normal affect Attitude: cooperative Thought process: Normal thought process present Office Procedures EKG [id number], Complete Coding Level of Care Code TCM Mod MDM <= 7 Days Diagnoses Lower gastrointestinal hemorrhage K92.2 Colitis K52.9 Chest pain, unspecified type R07.9 Chest pain type: unspecified Elevated transaminase level R74.01 Gastroesophageal reflux disease without esophagitis K21.9 Esophagitis presence: without esophagitis Essential hypertension I10 PAF (paroxysmal atrial fibrillation) I48.0 CPT Codes EKG - CPT: 20407-[id number], Complete ([id number]) Additional Codes PHQ-9 - 33940 - PHQ-9 Billing: Yes ([id number]) Assessment & Plan Assessment & Plan (1) Lower gastrointestinal hemorrhage: Code(s): K92.2 - Gastrointestinal hemorrhage, unspecified Category: Medical Plan: GI bleed, Kcentra given in the ER, she was seen evaluated by Gastroenterology and is status post colonoscopy showing diverticulosis and left-sided colitis with no active bleeding. She was started on ceftriaxone and Flagyl. Her Eliquis was placed on hold for a week, resume date was 10/10/24. Her H&H has been stable with no further episodes of bleeding. --Will repeat H&H in 4 weeks. Patient has a follow GI appt in 12/04/24-keep this appt (2) Colitis: Code(s): K52.9 - Noninfective gastroenteritis and colitis, unspecified Category: Medical Plan: encouraged fluids intake/bland foods Continue ceftriaxone and Flagyl as prescribed follow up with GI as scheduled (3) Chest pain: Code(s): R07.9 - Chest pain, unspecified Category: Medical Qualifiers: Chest pain type: unspecified Qualified Code(s): R07.9 - Chest pain, unspecified Plan: Reports chest pain in office, pointed at the epigastric region (reports it feels burning). Educated the patient this is most likely been caused by heartburn. EKG done in office-no acute findings noted. The patient is not a good historian on which medications she is taking. Reports that her meds are prepared for her and by mornings and evenings. The patient was showed the names of famotidine 40 mg at bedtime and pantoprazole 40 mg in the mornings. The patient was told that these two pills will help her heartburn. reinforced dietary restriction follow up with GI as scheduled (4) Elevated transaminase level: Code(s): R74.01 - Elevation of levels of liver transaminase levels Category: Medical Plan: slight elevation in the hospital that resolved upon discharge will repeat labs in 4 weeks (5) GERD (gastroesophageal reflux disease): Code(s): K21.9 - Gastro-esophageal reflux disease without esophagitis Category: Medical Qualifiers: Esophagitis presence: without esophagitis Qualified Code(s): K21.9 - Gastro-esophageal reflux disease without esophagitis Plan: continues famotidine 40mg QHS and omeprazole 40 mg Q am reinforced dietary restriction (6) Essential hypertension: Code(s): I10 - Essential (primary) hypertension Category: Medical Plan: reinforced a diet low in sodium continues lisinopril 40 mg daily (7) PAF (paroxysmal atrial fibrillation): Code(s): I48.0 - Paroxysmal atrial fibrillation Category: Medical Plan: continue Eliquis 5 mg BID EKG done in office, sinus rhythm Plan To return as scheduled next month for her annual physical examination with her PCP Orders: Orders AMB EKG-In Office 10/13/24 Z13.6 - Encounter for screening for cardiovascular disorders Complete Blood Count Auto Diff 4 Weeks I10 - Essential (primary) hypertension, I48.0 - Paroxysmal atrial fibrillation, K21.9 - Gastro-esophageal reflux disease without esophagitis, K52.9 - Noninfective gastroenteritis and colitis, unspecified, K92.2 - Gastrointestinal hemorrhage, unspecified, R74.01 - Elevation of levels of liver transaminase levels Comprehensive Kimball. Panel Fast 4 Weeks I10 - Essential (primary) hypertension, I48.0 - Paroxysmal atrial fibrillation, K21.9 - Gastro-esophageal reflux disease without esophagitis, K52.9 - Noninfective gastroenteritis and colitis, unspecified, K92.2 - Gastrointestinal hemorrhage, unspecified, R74.01 - Elevation of levels of liver transaminase levels Lipid Panel 4 Weeks I10 - Essential (primary) hypertension, I48.0 - Paroxysmal atrial fibrillation, K21.9 - Gastro-esophageal reflux disease without esophagitis, K52.9 - Noninfective gastroenteritis and colitis, unspecified, K92.2 - Gastrointestinal hemorrhage, unspecified, R74.01 - Elevation of levels of liver transaminase levels AMB EKG-In Office 10/13/24 R07.9 - Chest pain, unspecified
[2024-10-13 15:05] VITALS: BP 140/76; PULSE 82; TEMP 36.9; O2SAT 96; BMI 26.2
== END 2024-10-13 16:04 | disposition home or self-care (01) ==
PROVIDERS: PCP Internal Medicine
DX: K92.2 Gastrointestinal hemorrhage, unspecified (principal); K52.9 Noninfective gastroenteritis and colitis, unspecified; I48.0 Paroxysmal atrial fibrillation; R07.9 Chest pain, unspecified; R74.01 Elevation of levels of liver transaminase levels; I10 Essential (primary) hypertension; K21.9 Gastro-esophageal reflux disease without esophagitis

== ENCOUNTER → 2024-10-13 14:57 | Outpatient (BNVA) | payer OTHER, SELFPAY | PROVIDERS: PCP Internal Medicine | DX: I48.0 Paroxysmal atrial fibrillation (principal); K22.2 Esophageal obstruction; I25.10 Atherosclerotic heart disease of native coronary artery without angina pectoris; F32.A Depression, unspecified; K21.9 Gastro-esophageal reflux disease without esophagitis; I10 Essential (primary) hypertension; K92.2 Gastrointestinal hemorrhage, unspecified; K52.9 Noninfective gastroenteritis and colitis, unspecified; R07.9 Chest pain, unspecified; R74.01 Elevation of levels of liver transaminase levels; J45.909 Unspecified asthma, uncomplicated; Z79.01 Long term (current) use of anticoagulants | CPT/HCPCS: 93005; 96127; 99495 ==

== ENCOUNTER 2024-11-26 16:30 | Emergency (ER) | payer OTHER, SELFPAY ==
--- NOTE | ~2024-11-26 | CT_ITS ---
CLINICAL HISTORY: LLQ pain ?diverticulitis CT abdomen and pelvis without contrast Comparison: CT/SR - CT GI BLEED ABD PEL WO/W IVCON - 10/04/24 18:[address] - CT GI BLEED ABD PEL WO/W IVCON - 10/04/24 18:33 EST US - ABDOMEN ULTRASOUND [id number] - 12/09/17 10:47 EST Findings: No consolidation at the lung bases. Unremarkable gallbladder and bladder. Status post hysterectomy. The other solid organs are unremarkable. Small hiatal hernia. No bowel dilation. A normal appendix is identified. Colonic diverticulosis. No inflamed diverticula or focal pericolonic stranding. Wall thickening versus underdistention of the transverse colon. There is wall thickening of the descending colon, most prominent proximally. There is mild engorgement of the vasa recta. Colitis involving this region was also seen on the prior studies. No aneurysm. Severe calcified atherosclerotic disease. No lymphadenopathy. No ascites. No acute osseous abnormality. Impression: Colitis, infectious/inflammatory. Colonic diverticulosis without diverticulitis. This document has been electronically signed by: Delmi Portillo MD on 11/26/2024 18:27:18
[2024-11-26 16:48] VITALS: BP 133/62; PULSE 70; RESP 16; TEMP 36.3; O2SAT 96; BMI 27.1
--- NOTE | 2024-11-26 16:50 | ED_ITS ---
HPI - Abdominal Pain General Chief Complaint: Abdominal Pain Stated Complaint: ABD PAIN Time Seen by Provider: 11/26/24 16:40 Source: patient Mode of arrival: ambulatory Limitations: no limitations History of Present Illness ED Provider: HPI narrative: Patient is 79 years old with history of CVA CAD AFib on Eliquis mood disorder hypertension was admitted and discharged on 10/08/2024 for GI bleed with a diagnose use of diverticulosis and left-sided colitis comes here as noticed the left lower abdominal discomfort for last 2 -3 days with constipation today she had a bowel movement which was hard initially and then followed by liquid stool multiple times no blood in her stool patient did not eat much today no fever no chills Related Data Home Medications ?Medication ?Instructions ?Recorded ?Confirmed donepezil 10 mg tablet 10 mg PO DAILY 08/09/23 10/13/24 memantine 5 mg tablet 5 mg PO BID 08/09/23 10/13/24 Previous Rx's ?Medication ?Instructions ?Recorded compress.stocking,knee,reg,med #2 ea 02/26/22 meclizine 25 mg tablet 25 mg PO BID PRN dizziness #30 tabs 04/10/22 Grab bar #2 ea 12/29/22 Shower Chair #1 ea 12/29/22 handheld showerhead #1 ea 12/29/22 incontinence pads #240 ea 12/29/22 toilet frame #1 ea 12/29/22 underpads (Bed Underpads) #100 ea 12/29/22 walker (Ultra-Light Rollator misc) #1 ea 12/29/22 apixaban 5 mg tablet (Eliquis) 5 mg PO BID #60 tabs 10/06/23 calcium 500 mg (as 1 tab PO BID 90 days #180 tabs 07/12/24 carbonate)-vitamin D3 10 mcg (400 unit) tablet (Calcium 500 With D) atorvastatin 40 mg tablet 40 mg PO BEDTIME #90 tabs 07/13/24 lisinopril 40 mg tablet 40 mg PO DAILY #90 tabs 07/23/24 metoprolol succinate 50 mg 50 mg PO BID #180 tabs 07/27/24 tablet,extended release 24 hr famotidine 40 mg tablet 40 mg PO BEDTIME #90 tabs 08/21/24 ipratropium 0.5 mg-albuterol 3 mg 3 ml inhalation DAILY 30 days #90 10/02/24 (2.5 mg base)/3 mL nebulization mL soln metronidazole 375 mg capsule 375 mg PO BID #4 caps 10/08/24 (Flagyl) oxycodone 5 mg tablet 5 mg PO Q8H PRN pain #9 tabs 10/08/24 budesonide 0.5 mg/2 mL suspension 0.5 mg (2 mL) inhalation DAILY 30 10/24/24 for nebulization days #60 mL pantoprazole 40 mg tablet,delayed 40 mg PO QAM #90 tabs 11/21/24 release amoxicillin 875 mg-potassium 1 tab PO BID #20 tabs 11/26/24 clavulanate 125 mg tablet Allergies Allergy/AdvReac Type Severity Reaction Status Date / Time oxycodone [From Percocet] Allergy Intermediate Agitated Verified 11/26/24 16:51 morphine AdvReac Agitated Verified 11/26/24 16:51 Review of Systems Review of Systems Yes all other systems are reviewed and are negative PMFSH Past Medical History Medical History Colitis Schatzki's ring Depression Hypersomnia Snoring Cognitive impairment History of CVA (cerebrovascular accident) Afib Acute CVA (cerebrovascular accident) IBS (irritable bowel syndrome) Abdominal hyperesthesia Dyspepsia Osteoarthritis of lumbar spine Scoliosis GERD (gastroesophageal reflux disease) HTN (hypertension) Surgical History Status post ablation of incompetent vein using laser (06/12/22) Hx of hysterectomy H/O oophorectomy H/O bilateral breast reduction surgery Family History Family History Son HTN (hypertension) Father No problems noted. Mother No problems noted. Social History Social History Household Members: None Housing: Apartment Are you a primary rn acute care to a significant other at home: No Do you presently have visiting nurse or other home services: No Alcohol intake: never Patient Tobacco Use Status: Never used Tobacco e-Cigarette/Vaping Use: Never Used Second Hand Smoke Exposure: No Advance Directives Date on File: 08/13/21 service: No Current occupational status: disabled Cognitive needs: No Hearing needs: No Vision needs: Yes (Glasses) Physical Exam ED Vital Signs: Vital Signs - 24 hr 11/26/24 16:48 11/26/24 16:52 11/26/24 19:23 Temperature 97.4 F 98.5 F Pulse Rate 70 66 Respiratory Rate 16 16 16 Blood Pressure 133/62 156/75 H Pulse Oximetry 96 98 Oxygen Delivery Method Room Air Room Air BMI result Body Mass Index 27.1 Appearance: Alert. Oriented X3. No acute distress. Eyes: No pallor or icterus ENT: Pharynx normal. Oral Mucosa moist Neck: Normal inspection. Neck supple. CVS: Normal heart rate and rhythm. Pulses normal. Respiratory: No respiratory distress. Equal air entry bilateral, no wheezing/rales/rhonchi Abdomen: Soft and mild deep tenderness left lower quadrant no rebound tenderness or guarding. Bowel sounds are present, no mass palpable, no CVA tenderness Skin: Skin warm and dry. Normal skin color. Normal skin turgor. Extremities: No lower extremity edema. No calf tenderness Neuro: Oriented X 3. No motor deficit. No sensory deficit.No cerebellar signs , cranial nerves II-XII intact Medical Decision Making Medical Decision Making MDM Narrative: Patient with left lower quadrant pain CT scan negative for diverticulitis shows small amount of colitis will discharge patient home on Augmentin no blood in his stool labs are stable Differential Diagnosis Differential Diagnoses: The differential diagnosis associated with the presentation includes Diverticulitis/colitis/cystitis Lab Data [facility] Lab Attestation statement: I reviewed the patient's lab results. 11/26/24 17:25 11/26/24 17:25 Labs: Lab Results 11/26/24 Range/Units 17:25 WBC 7.9 (4.8-10.8) X10*3/uL RBC 4.19 L (4.20-5.50) X10*6/uL Hgb 12.5 (12.0-16.0) g/dl Hct 37.7 (37.0-47.0) % MCV 90.0 (80.0-98.0) fL MCH 29.8 (27.0-33.0) pg MCHC 33.2 (31.0-35.0) g/dl RDW 13.0 (11.0-16.0) % Plt Count 205 (160-400) X10*3/uL MPV 11.4 (9.4-12.3) fL Immature Gran % (Auto) 0.3 (0.0-0.4) % Neut % (Auto) 77.7 H (45-73) % Lymph % (Auto) 12.5 L (20-40) % [place] % (Auto) 7.0 (2-11) % Eos % (Auto) 2.4 (0-4) % Baso % (Auto) 0.1 (0-2) % Lymph # (Auto) 1.0 L (1.2-4.9) X10*3/uL [place] # (Auto) 0.6 (0.1-1.2) X10*3/uL Eos # (Auto) 0.2 (0.0-0.4) X10*3/uL Baso # (Auto) 0.0 (0.0-0.2) X10*3/uL Abs Immat Gran (auto) 0.02 (0.00-0.03) X10*3/uL Absolute Neuts (auto) 6.1 (2.0-8.3) x10*3/uL Absolute Nucleated RBC 0.000 (0.0-0.012) X10*3/uL Nucleated RBC % (auto) 0.0 (0.0-0.2) /100WBC Sodium 144 (135-145) mmol/L Potassium 3.6 (3.3-5.1) mmol/L Chloride 111 H (96-108) mmol/L Carbon Dioxide 27 (22-29) mmol/L Anion Gap 10 L (12-20) BUN 19 H (9-16) mg/dL Creatinine 0.94 (0.5-1.4) mg/dL Estim Creat Clear Calc 48.5 Estimated GFR 58 Random Glucose 94 (60-115) mg/dL Calcium 8.9 (8.4-10.2) mg/dL Total Bilirubin 0.4 (0.0-1.0) mg/dL AST 30 (5-31) U/L ALT 22 (0-31) U/L Alkaline Phosphatase 68 (39-117) U/L Total Protein 6.8 (6.5-8.0) g/dL Albumin 3.6 (3.5-5.0) g/dL Radiology Impression Discussion of test interpretation with radiology: I have reviewed the radiologist's reading. Radiologist Impression: Close Abdomen/Pelvis CT (Signed) Delmi Coreas - 11/26/24 Abdomen/Pelvis CT (Signed) Duke Vazquez - 10/04/24 General Surgery Image 08/22/[address] (Signed) Tyshawn Jimenez - 06/03/24 Barium Swallow X-Ray (Signed) JuanjoseTyshawn (+) - 04/04/24 Mammogram Screening (Signed) KentuckerMarissa - 03/14/24 Chest X-Ray (Signed) Britney Starr - 01/16/24 Pelvis MRI (Signed) David Sands - 12/17/23 Lumbar Spine MRI (Signed) Prem Gates - 11/16/23 Knee X-Ray (Signed) Cristhian Xiao - 11/10/23 Chest X-Ray (Signed) Ta Valladares - 09/05/23 Cardiolite Stress Test (Signed) Ciro Mirza - 08/19/23 Chest X-Ray (Signed) Britney Starr - 08/09/[address] (Signed) Mary,Quang - 05/18/23 Chest X-Ray (Signed) Ta Valladares - 05/18/23 Mammogram Screening (Signed) Brian Darling - 03/05/23 Brain MRI (Signed) Duke Nava - 11/18/22 Venous Duplex (Signed) Britney Starr - 07/10/22 Venous Duplex (Signed) Mary,Quang - 06/15/22 Chest CTA (Signed) Nish Sawyer - 04/26/22 Chest X-Ray (Signed) Brian Bob - 04/26/22 Venous Duplex (Signed) Nic Gutierrez - 04/15/22 Lumbar Spine MRI (Signed) Melvin Tena - 04/09/[address] (Signed) Prem Hernandez - 03/29/22 Abdomen Ultrasound (Signed) Mary,Quang - 03/03/22 Mammogram Screening (Signed) Brian Darling - 02/14/22 Modified Barium Swallow (Signed) Mary,Quang - 01/28/22 Head CTA (Signed) Duke Nava - 01/27/22 Finger X-Ray (Signed) Wes Armando - 12/13/21 Abdomen/Pelvis CT (Signed) OpalStan - 11/30/21 Hip and Pelvis X-Ray (Signed) Andrea Pichardo - 11/14/21 Hip X-Ray (Signed) Tania Dutton - 10/27/21 Pelvis X-Ray (Signed) Morris Post - 10/21/21 Lumbar Spine X-Ray (Signed) Morris Post - 10/21/[address] (Signed) Melani Ross - 08/27/21 Abdomen Ultrasound (Signed) Melani Ross - 08/27/21 Spine Flexion/Extension X-Ray (Signed) Mary,Quang - 08/27/21 Humerus X-Ray (Signed) Mary,Quang - 08/27/21 Humerus X-Ray (Signed) Mary,Quang - 08/27/21 Head/Neck CTA (Signed) Duke Nava - 08/14/21 Brain MRI (Signed) Perm Gates - 08/13/21 Chest X-Ray (Signed) Yaya Garduno - 08/12/[address] (Signed) Britney Starr - 08/01/21 Diagnostic Report, External 07/08/21 Renal Ultrasound (Signed) Mary,Quang - 03/07/21 Renal Ultrasound (Signed) Mary,Quang - 03/07/21 Diagnostic Report, External 02/27/21 Carotid Doppler Study (Signed) Tyshawn Romero - 02/21/21 Diagnostic Report, External 12/27/20 Diagnostic Report, External 12/23/20 Diagnostic Report, External 12/22/20 Diagnostic Report, External 12/22/20 Diagnostic Report, External 12/21/20 Pelvis X-Ray (Signed) Britney Starr - 12/05/20 Lumbar Spine X-Ray (Signed) Briteny Starr - 12/05/20 Hand X-Ray (Signed) Britney Starr - 12/05/20 Hand X-Ray (Signed) Britney Starr - 12/05/20 Launch?Image [address] [address] [address] Scan Report Signed Patient: OreBecca Solano MR#: [id number] : 1945 Acct:[id number] Age/Sex: 79 / F ADM Date: 11/26/24 Loc: HO.ED Attending Dr: Ordering Physician: Randy Mccullough MD Date of Service: 11/26/24 Procedure(s): CT abdomen pelvis wo IV con Accession Number(s): [id number] cc: Yeny Bay MD; Randy Mccullough MD~ Report Number: [id number]: Total DLP = 548.00 mGy-cm CLINICAL HISTORY: LLQ pain ?diverticulitis CT abdomen and pelvis without contrast Comparison: CT/SR - CT GI BLEED ABD PEL WO/W IVCON - 10/04/24 18:[address] - CT GI BLEED ABD PEL WO/W IVCON - 10/04/24 18:33 EST US - ABDOMEN ULTRASOUND [id number] - 12/09/17 10:47 EST Findings: No consolidation at the lung bases. Unremarkable gallbladder and bladder. Status post hysterectomy. The other solid organs are unremarkable. Small hiatal hernia. No bowel dilation. A normal appendix is identified. Colonic diverticulosis. No inflamed diverticula or focal pericolonic stranding. Wall thickening versus underdistention of the transverse colon. There is wall thickening of the descending colon, most prominent proximally. There is mild engorgement of the vasa recta. Colitis involving this region was also seen on the prior studies. No aneurysm. Severe calcified atherosclerotic disease. No lymphadenopathy. No ascites. No acute osseous abnormality. Impression: Colitis, infectious/inflammatory. Colonic diverticulosis without diverticulitis. This document has been electronically signed by: Delmi Portillo MD on 11/26/2024 18:27:18 Medications Administered Discontinued Medications Generic Name Dose Route Start Last Admin Trade Name Freq PRN Reason Stop Dose Admin Amoxicillin/Clavulanate Potassium 875 mg 11/26/24 18:48 11/26/24 19:16 Amoxicillin/Potassium Clav 875 Mg Tablet PO 11/26/24 18:49 875 mg ONCE ONE Administration Discharge Plan Discharge Clinical Impression: Colitis Patient Disposition: Home, Self-Care Instructions: Colitis (ED) Additional Instructions: Your pain in abdomen is from inflammation of the bowel Take antibiotics as prescribed Drink plenty of fluids Report to the ER if worsening of the pain or high fever Prescriptions: New amoxicillin-pot clavulanate 875-125 mg tablet 1 tab PO BID Qty: 20 0RF No Action (DME) compress.stocking,knee,reg,med Misc See Rx Instructions .Route Qty: 2 0RF Rx Instructions: As directed (DME) Shower Chair Misc See Rx Instructions .Route Qty: 1 0RF Rx Instructions: As directed (DME) Grab bar Misc See Rx Instructions .Route Qty: 2 0RF Rx Instructions: As directed (DME) toilet frame See Rx Instructions .Route .MEDSUPPLY Qty: 1 0RF Rx Instructions: As directed (DME) handheld showerhead See Rx Instructions .Route .MEDSUPPLY Qty: 1 0RF Rx Instructions: As directed (DME) Ultra-Light Rollator Misc See Rx Instructions .Route Qty: 1 0RF Rx Instructions: As directed (DME) underpads [Bed Underpads] Pad See Rx Instructions .Route Qty: 100 6RF Rx Instructions: As directed (DME) incontinence pads regular See Rx Instructions .Route .MEDSUPPLY Qty: 240 6RF Rx Instructions: As directed Eliquis 5 mg tablet 5 mg PO BID Qty: 60 7RF calcium carbonate-vitamin D3 [Calcium 500 With D] 500 mg-10 mcg (400 unit) tablet 1 tab PO BID 90 Days Qty: 180 2RF atorvastatin 40 mg tablet 40 mg PO BEDTIME Qty: 90 1RF lisinopril 40 mg tablet 40 mg PO DAILY Qty: 90 3RF metoprolol succinate 50 mg tablet extended release 24 hr 50 mg PO BID Qty: 180 1RF famotidine 40 mg tablet 40 mg PO BEDTIME Qty: 90 1RF ipratropium-albuterol 0.5 mg-3 mg(2.5 mg base)/3 mL solution for nebulization 3 ml inhalation DAILY 30 Days Qty: 90 0RF budesonide 0.5 mg/2 mL suspension for nebulization 0.5 mg inhalation DAILY 30 Days Qty: 60 2RF pantoprazole 40 mg tablet,delayed release (DR/EC) 40 mg PO QAM Qty: 90 0RF donepezil 10 mg tablet 10 mg PO DAILY memantine 5 mg tablet 5 mg PO BID oxycodone 5 mg tablet 5 mg PO Q8H PRN (Reason: pain) Qty: 9 0RF Rx Instructions: Partial Fill upon patient request. metronidazole [Flagyl] 375 mg capsule 375 mg PO BID Qty: 4 0RF meclizine 25 mg tablet 25 mg PO BID PRN (Reason: dizziness) Qty: 30 0RF Interventions: ED Discharge Assessment Last Done: 11/26/24 19:23 Discharge Date/Time: 11/26/24 19:24 Print Language: Yi
[2024-11-26 16:52] VITALS: RESP 16
--- OUTSIDE RECORDS SUMMARY | 2024-11-26 17:05 | XMS_ITS ---
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 Name Role Phone Hannah Jain Unavailable [phone] Unavailable Unavailable [phone] Unavailable Unavailable Unavailable Unavailable Unavailable [phone] Reason for Referral Not Available Allergies, adverse reactions, alerts Allergen Type Reaction Severity Status Onset Date Oxycodone Allergy to substance (disorder) Hives Unknown Active N/A History of medication use Medication Class Instructions Start Date End Date Lisinopril 40 mg Tab take 1 tablet by mo hih daily 2022-02-10 No Data Available Eliquis 5 mg Tab TAKE 1 TABLET BY FOUZIA TWICE A DAY 2021-09-16 No Data Available Ipratropium-Albuterol 0.5-2. 5 (3) MG/3ML Solution INHALE 1 VIAL VIA NEBULIZER 2 TIMES A DAY FOR 30 DAYS 2022-03-03 No Data Available Atorvastatin Calcium 80 mg Tab TAKE 1 TA BLET BY MOUTH EVERY EVENING 2021-12-18 No Data Available CALCIUM 500-VIT D3 400 TABLET TAKE 1 TAB LET BY MOUTH TWICE A DAY 2021-07-03 No Data Available Memantine 5 mg Tab 1 tablet orally daily 2022-03-18 No Data Available clonazePAM 0.5 mg Tab TOME HONORIO TABLETA T ODOS LOS D AL ACOSTARSE FOR 30 DAYS 2022-02-05 2022-08-07 Meclizine 25 mg Tab TOME HONORIO TABLETA DOS VECES AL D A CUANDO SEA NECESARIO FOR 30 DAYS 2022-02-05 2022-08-07 Metoprolol Succinate ER 25 m g Tab ER 24hr 1 tablet once daily 2022-08-07 No Data Available Loratadine 10 mg Tab 1 tab po daily 2022-08-07 No Da ta Available Fluticasone Propionate 50 MCG/ACT Suspension Nasal use 1 spray in each nostril daily 2022-08-07 No Data Available ProAir HFA 108 (90 Base) MCG/ACT Aerosol Solution Inhalation 2 inhalations every 3 hours as needed. 2022-08-07 No Data Available Omeprazole 20 mg Cap delayed rel 1 tablet orally daily 2022-10-22 No Data Available Meclizine 25 mg Tab TOME HONORIO TABLETA DOS VECES AL D A CUANDO SEA NECESARIO FOR 30 DAYS 2022-02-05 No Data Available Ciprofloxacin-Dexamethasone 0.3-0.1 % Suspension PLACE 4 DROPS INTO THE EAR(S) 2 TIMES A DAY FOR 7 DAYS 2022-12-15 No Data Available Torsemide 10 mg Tab TOME HONORIO TABLETA TOD OS LOS D 2022-12-15 No Data Available [facility] % Crm APLIQUE AL CRYSTAL AFECTADA TOPICALLY DOS VECES AL D A TO AREAS OF FEET 2022-12-29 No Data Available Banophen 50 mg Cap TOME 1 C PSULA CADA CUATRO A SEIS HORAS CUANDO SEA NECESARIO ALLERGIC REACTION 2023-06-03 No Data Available Budesonide 0.5 mg/2ML Suspension INHALE 2 ML VIA NEBULIZER 2 TIMES A DAY FOR 30 DAYS 2023-06-16 No Data Available guaiFENesin-Codeine 100/10 mg/5ML Solution TAKE 10 ML ORALLY EVERY 4 TO 6 HOURS NEEDED FOR COLD SYMPTOMS FOR 15 DAYS 2023-06-16 No Data Available Acetaminophen ER 650 mg Tab ER TOME HONORIO TABLETA DOS VECES AL D A POR 10 D 2023-08-19 No Data Available Cyclobenzaprine 5 mg Tab PLEASE SEE MINERVA CHED FOR DETAILED DIRECTIONS 2023-08-19 No Data Available Diclofenac Sodium 1 % Gel APPLY 2 GRAMS (TOPICAL) 4 TIMES PER DAY FOR 10 DAYS 2023-08-19 No Data Available Sertraline 25 mg Tab TOME HONORIO TABLETA PO R V A ORAL TODOS LOS D X4 WEEKS THEN 2 TABS POR V A ORAL DAILY 2023-08-30 No Data Available Baclofen 5 mg Tab TOME HONORIO TABLETA TOD OS LOS D TO RELIEVE MUSCLE SPASM 2023-09-21 No Data Available Gabapentin 300 mg Cap TOME HONORIO C PSULA T ODOS LOS D CADA NOCHE 2023-11-23 No Data Available Azithromycin 250 mg Tab TOME HONORIO TABLETA POR V A ORAL DAILY FOR 4 DAYS START ON DAY 2 OF THERAPY 2024-01-16 No Data Available levoFLOXacin 750 mg Tab TOME 1 TABLETA P OR V A ORAL TODOS LOS D POR 7 D 2024-01-21 No Data Available Levaquin 750 mg Tab Take 1 tablet daily for 7 days. last day 01/28/24 2024-01-25 No Data Available Albuterol Sulfate HFA 108 (9 0 Base) MCG/ACT Aerosol Solution Inhalation 2 puffs Q 4-6H PRN cough, wheezing, SOB 2024-01-25 No Data Available Problem List Problem Status Onset Date Resolved Date Insomnia Active 2022-08-07 N/A GERD (gastroesophageal reflux disease) Active 26-10-18 N/A Chronic kidney disease, stage 3a Active N/A Interstitial pulmonary disease, unspecified Active 2022-10-22 N/A Bladder incontinence Active 2022-10-22 N/A Chronic low back pain with sciatica Active 08-07 N/A Unspecified atherosclerosis of [place] arteries of extremities, unspecified extremity Active 2022-08-07 N/A Seasonal allergic rhinitis Active 2022-08-07 N /A Hyperlipidemia Active 2022-08-07 N/A Asthma Active 2022-08-07 N/A Hypercoagulability due to atrial fibrillation Active 2022-08-07 N/A Sacroiliitis, not elsewhere classified Active 25-08-04 N/A Secondary hyperaldosteronism Active 2022-08-10 N/A Dementia Active 2022-08-07 N/A Heart failure, unspecified Active 2022-08-07 N /A Hypertension Active 2022-08-07 N/A Chronic obstructive pulmonary disease, unspecified Act radha 2022-08-10 N/A Other forms of acute ischemic heart disease Active 2022-10-22 N/A Need for assistance with personal care Active 25-01-23 N/A Difficulty in walking, not e lsewhere classified /Unsteady gait Active 2024-01-25 N/A [facility] Active 2023-12-11 N/A Incontinence Active 2024-01-25 N/A Major depressive disorder, recurrent, moderate Active 2024-02-02 N/A Encounters Encounters Type Facility Date of Service Diagnosis/Co mplaint New patient,40-59min; chronic exacerbation, 2 stable chronic or 1 acute illness add add modifier 95 for video (do not use for phone, instead use [id number]) [facility] Hypertensive heart disease w ith heart failureHeart failure, unspecifiedSacroiliitis, not elsewhere classifiedOther thrombophiliaUnspecified atrial fibrillationUnspecified asthma, uncomplicatedInsomnia, unspecifiedHyperlipidemia, unspecifiedUnspecified dementia without behavioral disturbanceOther seasonal allergic rhinitisUnsp athscl eklutna arteries of extremities, unsp extremityLumbago with sciatica, unspecified sideOther chronic painSecondary hyperaldosteronismChronic obstructive pulmonary disease, unspecified New patient,40-59min; chronic exacerbation, 2 stable chronic or 1 acute illness add add modifier 95 for video (do not use for phone, instead use [id number]) [facility] New patient,40-59min; chronic exacerbation, 2 stable chronic or 1 acute illness add add modifier 95 for video (do not use for phone, instead use 45912-83) [facility] New patient,40-59min; chronic exacerbation, 2 stable chronic or 1 acute illness add add modifier 95 for video (do not use for phone, instead use [id number]) [facility] New patient,40-59min; chronic exacerbation, 2 stable chronic or 1 acute illness add add modifier 95 for video (do not use for phone, instead use [id number]) [facility] New patient,40-59min; chronic exacerbation, 2 stable chronic or 1 acute illness add add modifier 95 for video (do not use for phone, instead use [id number]) [facility] New patient,40-59min; chronic exacerbation, 2 stable chronic or 1 acute illness add add modifier 95 for video (do not use for phone, instead use [id number]) [facility] No Data Available [facility] [place]2022 Heart failure, unspecifiedUnspecified asthma, uncomplicatedHyperlipidemia, unspecifiedChronic obstructive pulmonary disease, unspecifiedHypertensive heart disease with heart failure Estab. patient 30-39min; chronic exacerbation, 2 stable chronic or 1 acute illness add add modifier 95 for video, (do not use for phone, instead use [id number]) [facility]2022 Heart failure, unspecifiedSacroiliitis, not elsewhere classifiedOther thrombophiliaUnspecified atrial fibrillationUnspecified asthma, uncomplicatedHyp hrt & chr kdny dis w hrt fail and stg 1-4/unsp chr kdnyInsomnia, unspecifiedHyperlipidemia, unspecifiedUnspecified dementia without behavioral disturbanceOther seasonal allergic rhinitisUnsp athscl eklutna arteries of extremities, unsp extremityLumbago with sciatica, unspecified sideOther chronic painSecondary hyperaldosteronismChronic obstructive pulmonary disease, unspecifiedGastro-esophageal reflux disease without esophagitisChronic kidney disease, stage 3aInterstitial pulmonary disease, unspecifiedUnspecified urinary incontinenceOther forms of acute ischemic heart disease Estab. patient 30-39min; chronic exacerbation, 2 stable chronic or 1 acute illness add add modifier 95 for video, (do not use for phone, instead use 63612-27) [facility] Estab. patient 30-39min; chronic exacerbation, 2 stable chronic or 1 acute illness add add modifier 95 for video, (do not use for phone, instead use 46210-17) [facility] Estab. patient 30-39min; chronic exacerbation, 2 stable chronic or 1 acute illness add add modifier 95 for video, (do not use for phone, instead use 12629-75) [facility] Estab. patient 30-39min; chronic exacerbation, 2 stable chronic or 1 acute illness add add modifier 95 for video, (do not use for phone, instead use [id number]) [facility] Estab. patient 30-39min; chronic exacerbation, 2 stable chronic or 1 acute illness add add modifier 95 for video, (do not use for phone, instead use [id number]) [facility] ([place]) 10[place]/20[place] Estab. patient 30-39min; chronic exacerbation, 2 stable chronic or 1 acute illness add add modifier 95 for video, (do not use for phone, instead use [id number]) [facility] ([place] No Data Available [facility]2022 Chronic obstructive pulmonar y disease, unspecifiedHypertensive heart disease with heart failureHeart failure, unspecified No Data Available [facility]2023 Heart failure, unspecifiedSacroiliitis, not elsewhere classifiedOther thrombophiliaUnspecified atrial fibrillationUnspecified asthma, uncomplicatedHyp hrt & chr kdny dis w hrt fail and stg 1-4/unsp chr kdnyInsomnia, unspecifiedHyperlipidemia, unspecifiedUnspecified dementia without behavioral disturbanceOther seasonal allergic rhinitisUnsp athscl eklutna arteries of extremities, unsp extremityLumbago with sciatica, unspecified sideOther chronic painSecondary hyperaldosteronismChronic obstructive pulmonary disease, unspecifiedGastro-esophageal reflux disease without esophagitisChronic kidney disease, stage 3aInterstitial pulmonary disease, unspecifiedUnspecified urinary incontinenceOther forms of acute ischemic heart disease No Data Available [facility]20[place] No Data Available [facility] No Data Available [facility] No Data Available [facility] No Data Available [facility] No Data Available [facility]2023 Hyp hrt & chr kdny dis w hrt fail and stg 1-4/unsp chr kdnyHeart failure, unspecifiedChronic kidney disease, stage 3aSecondary hyperaldosteronismSacroiliitis, not elsewhere classifiedOther thrombophiliaUnspecified atrial fibrillationUnspecified asthma, uncomplicatedInsomnia, unspecifiedHyperlipidemia, unspecifiedUnspecified dementia without behavioral disturbanceOther seasonal allergic rhinitisUnsp athscl ekl[place] arteries of extremities, unsp extremityLumbago with sciatica, unspecified sideOther chronic painChronic obstructive pulmonary disease, unspecifiedGastro-esophageal reflux disease without esophagitisInterstitial pulmonary disease, unspecifiedUnspecified urinary incontinenceOther forms of acute ischemic heart disease No Data Available [facility]20[place] No Data Available [facility] No Data Available [facility] No Data Available [facility] No Data Available [facility] No Data Available [facility]2023 Hyp hrt & chr kdny dis w hrt fail and stg 1-4/unsp chr kdnyChronic kidney disease, stage 3aHeart failure, unspecifiedSacroiliitis, not elsewhere classifiedOther thrombophiliaUnspecified atrial fibrillationUnspecified asthma, uncomplicatedInsomnia, unspecifiedHyperlipidemia, unspecifiedUnspecified dementia without behavioral disturbanceOther seasonal allergic rhinitisUnsp athscl ekl[place] arteries of extremities, bilateral legsLumbago with sciatica, unspecified sideOther chronic painSecondary hyperaldosteronismChronic obstructive pulmonary disease, unspecifiedGastro-esophageal reflux disease without esophagitisInterstitial pulmonary disease, unspecifiedUnspecified urinary incontinenceAcute ischemic heart disease, unspecified No Data Available [facility]20[place] No Data Available [facility] No Data Available [facility] No Data Available [facility] [place]2023 No Data Available [facility] [place] No Data Available [facility]2023 Heart failure, unspecifiedSacroiliitis, not elsewhere classifiedOther thrombophiliaUnspecified atrial fibrillationUnspecified asthma, uncomplicated No Data Available [facility] 05[place]2023 No Data Available [facility] No Data Available [facility] No Data Available [facility] No Data Available [facility] No Data Available [facility] No Data Available [facility]2023 Heart failure, unspecifiedSacroiliitis, not elsewhere classifiedOther thrombophiliaUnspecified atrial fibrillationUnspecified asthma, uncomplicatedHyp hrt & chr kdny dis w hrt fail and stg 1-4/unsp chr kdnyInsomnia, unspecifiedHyperlipidemia, unspecifiedUnspecified dementia without behavioral disturbanceOther seasonal allergic rhinitisUnsp athscl eklutna arteries of extremities, unsp extremityLumbago with sciatica, unspecified sideOther chronic painSecondary hyperaldosteronismChronic obstructive pulmonary disease, unspecifiedGastro-esophageal reflux disease without esophagitisChronic kidney disease, stage 3aInterstitial pulmonary disease, unspecifiedUnspecified urinary incontinenceOther forms of acute ischemic heart disease No Data Available [facility]20[place] Data Available [facility] No Data Available [facility] No Data Available [facility] No Data Available [facility] No Data Available [facility]20[place] Estab. patient 30-39min; chronic exacerbation, 2 stable chronic or 1 acute illness add add modifier 95 for video, (do not use for phone, instead use [id number]) [facility]24 Heart failure, unspecifiedSacroiliitis, not elsewhere classifiedOther thrombophiliaUnspecified atrial fibrillationUnspecified asthma, uncomplicatedEssential (primary) hypertensionInsomnia, unspecifiedHyperlipidemia, unspecifiedUnspecified dementia without behavioral disturbanceOther seasonal allergic rhinitisUnsp athscl ekl[place]na arteries of extremities, unsp extremityLumbago with sciatica, unspecified sideOther problems related to medical facilities and other health careOther chronic painSecondary hyperaldosteronismChronic obstructive pulmonary disease, unspecifiedGastro-esophageal reflux disease without esophagitisChronic kidney disease, stage 3aInterstitial pulmonary disease, unspecifiedUnspecified urinary incontinenceOther forms of acute ischemic heart diseaseNeed for assistance with personal careDifficulty in walking, not elsewhere classifiedUnsteadiness on feetMajor depressive disorder, recurrent, moderate Estab. patient 30-39min; chronic exacerbation, 2 stable chronic or 1 acute illness add add modifier 95 for video, (do not use for phone, instead use 32469-50) [facility] Estab. patient 30-39min; chronic exacerbation, 2 stable chronic or 1 acute illness add add modifier 95 for video, (do not use for phone, instead use 70263-10) [facility] Estab. patient 30-39min; chronic exacerbation, 2 stable chronic or 1 acute illness add add modifier 95 for video, (do not use for phone, instead use [id number]) [facility] Estab. patient 30-39min; chronic exacerbation, 2 stable chronic or 1 acute illness add add modifier 95 for video, (do not use for phone, instead use 54941-26) [facility] Estab. patient 30-39min; chronic exacerbation, 2 stable chronic or 1 acute illness add add modifier 95 for video, (do not use for phone, instead use 75107-67) [facility] Estab. patient 30-39min; chronic exacerbation, 2 stable chronic or 1 acute illness add add modifier 95 for video, (do not use for phone, instead use 30726-26) [facility] Estab. patient 30-39min; chronic exacerbation, 2 stable chronic or 1 acute illness add add modifier 95 for video, (do not use for phone, instead use 01605-47) [facility] Estab. patient 30-39min; chronic exacerbation, 2 stable chronic or 1 acute illness add add modifier 95 for video, (do not use for phone, instead use 63286-84) [facility] Estab. patient 30-39min; chronic exacerbation, 2 stable chronic or 1 acute illness add add modifier 95 for video, (do not use for phone, instead use 61426-19) [facility] Vital Signs Date of Collection Vitals 2022-08-07 08:31:23 Height - 165.1 cmWei ght - 74.84 kgBody Mass Index (BMI) - 27.46 kg/m2 2022-10-22 09:11:25 Height - 162.56 cmWe ight - 69.4 kgBody Mass Index (BMI) - 26.26 kg/m2 2023-01-19 12:12:29 Weight - 68.95 kgBod y Mass Index (BMI) - 26.09 kg/m2Pain Scale - 3.0 {score} 2023-02-18 07:57:26 Pain Scale - 3.0 {sc ore} 2023-03-25 10:57:40 Height - 162.56 cmWe ight - 66.23 kgBody Mass Index (BMI) - 25.06 kg/m2Pain Scale - 4.0 {score} 2023-05-11 07:57:04 Weight - 66.23 kgBod y Mass Index (BMI) - 25.06 kg/m2Pain Scale - 3.0 {score} 2023-10-30 11:57:46 Weight - 65.77 kgBod y Mass Index (BMI) - 24.89 kg/m2BP Diastolic - 70.0 mm[Hg]BP Systolic - 130.0 mm[Hg] 2024-01-25 06:17:12 Height - 162.56 cmWe ight - 66.23 kgBody Mass Index (BMI) - 25.06 kg/m2BP Diastolic - 70.0 mm[Hg]BP Systolic - 130.0 mm[Hg]Pain Scale - 3.0 {score} Social History Social History Social History Observation Description Effec tive Time Current Smoking Status Never smoker 2024-11-05 3 Sex Female History of Procedures Procedures Service Procedure code Service date Servicing provider Phone# New patient,40-59min; chronic exacerbation, 2 stable chronic or 1 acute illness add add modifier 95 for video (do not use for phone, instead use [id number]) 54218 2022-08-07 No Data Available No Data Availa ble Pain Assessment - Pain Documented on a Pain Scale (1125F) 1125F 2022-08-07 No Data Available No Data Miguelina ilable Medication List Documented (1159F) 1159F 2022-08-07 No Data Available No Data Miguelina ilable Medication Review by prescribing provider or pharmacist documented (1160F) 1160F 2022-08-07 No Data Available No Data Miguelina ilable Functional Status Assessed (1170F) 1170F 2022-08-07 No Data Available No Data Avail able Advance Care Directive Advance care planning discussion documented in the medical record (1158F) 1158F 2022-08-07 No Data Available No Data Availa ble BMI obtained (3008F) 3008F 2022-08-07 No Data Availab le No Data Available No Data Available [id number] 2022-09-16 No Data Available No Data Available Estab. patient 30-39min; chronic exacerbation, 2 stable chronic or 1 acute illness add add modifier 95 for video, (do not use for phone, instead use 89967-89) 84291 2022-10-22 No Data Available No Data Availa ble Medication List Documented (1159F) 1159F 2022-10-22 No Data Available No Data Miguelina ilable Medication Review by prescribing provider or pharmacist documented (1160F) 1160F 2022-10-22 No Data Available No Data Miguelina ilable Functional Status Assessed (1170F) 1170F 2022-10-22 No Data Available No Data Avail able Advance Care Directive Advance care planning discussion documented in the medical record (1158F) 1158F 2022-10-22 No Data Available No Data Availa ble BMI obtained (3008F) 3008F 2022-10-22 No Data Availab le No Data Available Pain Assessment - Pain Documented on a Pain Scale (1125F) 1125F 2022-10-22 No Data Available No Data Miguelnia ilable No Data Available [id number] 2022-12-09 No Data Available No Data Available No Data Available [id number] 2023-01-19 No Data Available No Data Available Pain Assessment - Pain Documented on a Pain Scale (1125F) 1125F 2023-01-19 No Data Available No Data Miguelina ilable BMI obtained (3008F) 3008F 2023-01-19 No Data Availab le No Data Available Medication List Documented (1159F) 1159F 2023-01-19 No Data Available No Data Miguelina ilable Functional Status Assessed (1170F) 1170F 2023-01-19 No Data Available No Data Avail able Advance Care Directive Advance care planning discussion documented in the medical record (1158F) 1158F 2023-01-19 No Data Available No Data Availa ble No Data Available [id number] 2023-02-18 No Data Available No Data Available Medication List Documented (1159F) 1159F 2023-02-18 No Data Available No Data Miguelina ilable Functional Status Assessed (1170F) 1170F 2023-02-18 No Data Available No Data Avail able Pain Assessment - Pain Documented on a Pain Scale (1125F) 1125F 2023-02-18 No Data Available No Data Miguelina ilable Advance Care Directive Advance care planning discussion documented in the medical record (1158F) 1158F 2023-02-18 No Data Available No Data Availa ble No Data Available [id number] 2023-02-18 No Data Available No Data Available No Data Available 47730 2023-03-25 No Data Available No Data Available Pain Assessment - Pain Documented on a Pain Scale (1125F) 1125F 2023-03-25 No Data Available No Data Miguelina ilable No Data Available [id number] 2023-03-25 No Data Available No Data Available Functional Status Assessed (1170F) 1170F 2023-03-25 No Data Available No Data Avail able Medication List Documented (1159F) 1159F 2023-03-25 No Data Available No Data Miguelina ilable BMI obtained (3008F) 3008F 2023-03-25 No Data Availab le No Data Available No Data Available [id number] 2023-05-11 No Data Available No Data Available Medication List Documented (1159F) 1159F 2023-05-11 No Data Available No Data Miguelina ilable Functional Status Assessed (1170F) 1170F 2023-05-11 No Data Available No Data Avail able Pain Assessment - Pain Documented on a Pain Scale (1125F) 1125F 2023-05-11 No Data Available No Data Miguelina ilable Advance Care Directive Advance care planning discussion documented in the medical record (1158F) 1158F 2023-05-11 No Data Available No Data Availa ble BMI obtained (3008F) 3008F 2023-05-11 No Data Availab le No Data Available No Data Available [id number] 2023-05-11 No Data Available No Data Available No Data Available [id number] 2023-10-30 No Data Available No Data Available Functional Status Assessed (1170F) 1170F 2023-10-30 No Data Available No Data Avail able Medication List Documented (1159F) 1159F 2023-10-30 No Data Available No Data Miguelina ilable Advance Care Directive Advance care planning discussion documented in the medical record (1158F) 1158F 2023-10-30 No Data Available No Data Availa ble BMI obtained (3008F) 3008F 2023-10-30 No Data Availab le No Data Available SBP 130-139 (3075F) 3075F 2023-10-30 No Data Availabl e No Data Available DBP <80 (3078F) 3078F 2023-10-30 No Data Available No Data Available Estab. patient 30-39min; chronic exacerbation, 2 stable chronic or 1 acute illness add add modifier 95 for video, (do not use for phone, instead use [id number]) 51262 2024-01-25 No Data Available No Data Availa ble Medication List Documented (1159F) 1159F 2024-01-25 No Data Available No Data Miguelina ilable Medication Review by prescribing provider or pharmacist documented (1160F) 1160F 2024-01-25 No Data Available No Data Miguelina ilable Pain Assessment - Pain Documented on a Pain Scale (1125F) 1125F 2024-01-25 No Data Available No Data Miguelina ilable BMI obtained (3008F) 3008F 2024-01-25 No Data Availab le No Data Available Advance Care Directive Advance care planning discussion documented in the medical record (1158F) 1158F 2024-01-25 No Data Available No Data Availa ble Advance care planning discussed and documented ? advance care plan or surrogate decision-maker was documented in the medical record. (1123F) 1123F 2024-01-25 No Data Available No Data Availa ble SBP 130-139 (3075F) 3075F 2024-01-25 No Data Availabl e No Data Available DBP <80 (3078F) 3078F 2024-01-25 No Data Available No Data Available Functional Status Assessed (1170F) 1170F 2024-01-25 No Data Available No Data Avail able Functional Status Functional Category Effective Dates Cognition Status: Dementia 2022-08-07 ADL Eating: Some Help Needed ; Ambulation: Some Help Needed; Dressing: Some Help Needed; Bathing: Some Help Needed; Toileting: Independent 2022-08-07 IADL Shopping: total assist; Housekeeping: total assist; Meal Prep: Independent; Medications Management: Total assist 2022-08-07 Falls in last 6 Months: no 2024-01-25 Mental Status Status Date alert and oriented, forgetful, able to f ollow 1 step instructions 2024-01-25 Assessments Date of Service Assessments 2022-08-07 08:31:23 Heart failure, unspecifiedSacroiliitis, not elsewhere classifiedHypercoagulability due to atrial fibrillationAsthmaHypertensionInsomniaHyperlipidemiaDementiaSeasonal allergic rhinitisUnspecified atherosclerosis of [place] arteries of extremities, unspecified extremityChronic low back pain with sciaticaSecondary hyperaldosteronismChronic obstructive pulmonary disease, unspecified 2022-09-16 10:48:14 Heart failure, unspecified [I50.9]Asthma [J45.909]Hypertension [I10]Hyperlipidemia [E78.5]Chronic obstructive pulmonary disease, unspecified [J44.9] 2022-10-22 09:11:25 Heart failure, unspecifiedSacroiliitis, not elsewhere classifiedHypercoagulability due to atrial fibrillationAsthmaHypertensionInsomniaHyperlipidemiaDementiaSeasonal allergic rhinitisUnspecified atherosclerosis of [place] arteries of extremities, unspecified extremityChronic low back pain with sciaticaSecondary hyperaldosteronismChronic obstructive pulmonary disease, unspecifiedGERD (gastroesophageal reflux disease)Chronic kidney disease, stage 3aInterstitial pulmonary disease, unspecifiedBladder incontinenceOther forms of acute ischemic heart disease 2022-12-09 09:22:26 Chronic obstructive pulmonary disease, u nspecified [J44.9]Hypertension [I10]Heart failure, unspecified [I50.9] 2023-01-19 12:12:29 Heart failure, unspecifiedSacroiliitis, not elsewhere classifiedHypercoagulability due to atrial fibrillationAsthmaHypertensionInsomniaHyperlipidemiaDementiaSeasonal allergic rhinitisUnspecified atherosclerosis of [place] arteries of extremities, unspecified extremityChronic low back pain with sciaticaSecondary hyperaldosteronismChronic obstructive pulmonary disease, unspecifiedGERD (gastroesophageal reflux disease)Chronic kidney disease, stage 3aInterstitial pulmonary disease, unspecifiedBladder incontinenceOther forms of acute ischemic heart disease 2023-02-18 07:57:26 Heart failure, unspecified - ongoingSacr oiliitis, not elsewhere classified - ongoingHypercoagulability due to atrial fibrillation - ongoingAsthma - ongoingHypertension - ongoingInsomnia - ongoingHyperlipidemia - ongoingDementia - ongoingSeasonal allergic rhinitis - ongoingUnspecified atherosclerosis of [place] arteries of extremities, unspecified extremity - ongoingChronic low back pain with sciatica - ongoingSecondary hyperaldosteronism - ongoingChronic obstructive pulmonary disease, unspecified - ongoingGERD (gastroesophageal reflux disease) - ongoingChronic kidney disease, stage 3a - ongoingInterstitial pulmonary disease, unspecified - ongoingBladder incontinence - ongoingOther forms of acute ischemic heart disease - ongoing 2023-03-25 10:57:40 Heart failure, unspecified - ongoingSacr oiliitis, not elsewhere classified - ongoingHypercoagulability due to atrial fibrillation - ongoingAsthma - ongoingHypertension - ongoingInsomnia - ongoingHyperlipidemia - ongoingDementia - ongoingSeasonal allergic rhinitis - ongoingUnspecified atherosclerosis of [place] arteries of extremities, unspecified extremity - ongoingChronic low back pain with sciatica - ongoingSecondary hyperaldosteronism - ongoingChronic obstructive pulmonary disease, unspecified - ongoingGERD (gastroesophageal reflux disease) - ongoingChronic kidney disease, stage 3a - ongoingInterstitial pulmonary disease, unspecified - ongoingBladder incontinence - ongoingOther forms of acute ischemic heart disease - ongoing 2023-05-11 07:57:04 Heart failure, unspecifiedSacroiliitis, not elsewhere classifiedHypercoagulability due to atrial fibrillationAsthma 2023-10-30 11:57:46 Heart failure, unspecifiedSacroiliitis, not elsewhere classifiedHypercoagulability due to atrial fibrillationAsthmaHypertensionInsomniaHyperlipidemiaDementiaSeasonal allergic rhinitisUnspecified atherosclerosis of [place] arteries of extremities, unspecified extremityChronic low back pain with sciaticaSecondary hyperaldosteronismChronic obstructive pulmonary disease, unspecifiedGERD (gastroesophageal reflux disease)Chronic kidney disease, stage 3aInterstitial pulmonary disease, unspecifiedBladder incontinenceOther forms of acute ischemic heart disease 2024-01-25 06:17:12 Other problems related to medical facili ties and other health careOther problems related to medical facilities and other health careHeart failure, unspecifiedSacroiliitis, not elsewhere classifiedHypercoagulability due to atrial fibrillationAsthmaHypertensionInsomniaHyperlipidemiaDementiaSeasonal allergic rhinitisUnspecified atherosclerosis of [place] arteries of extremities, unspecified extremityChronic low back pain with sciaticaSecondary hyperaldosteronismChronic obstructive pulmonary disease, unspecifiedGERD (gastroesophageal reflux disease)Chronic kidney disease, stage 3aInterstitial pulmonary disease, unspecifiedBladder incontinenceOther forms of acute ischemic heart diseaseNeed for assistance with personal careDifficulty in walking, not elsewhere classified /Unsteady gaitIncontinenceMajor depressive disorder, recurrent, moderate Plan of Care Date of Service Plans 2022-08-07 08:31:23 Medication Review by prescribing provider or pharmacist documented (1160F)Medication List Documented (1159F)Functional Status Assessed (1170F)Advance Care Directive Advance care planning discussion documented in the medical record (1158F)BMI obtained (3008F)Pain Assessment - Pain Documented (1125F)Televideo new patient,40-59min; chronic exacerbation, 2 stable chronic or 1 acute illness add modifier 95Continue to see PCP. Follow-up with [facility] as needed for any acute or disease education needs that may arise.On FurosemideMetoprololFollows a Counter Top Assembler, will monitor edema and weight.On TylenolOn EliquisOn BreoFluticasoneWill prescribe AlbuterolSees a PulmonologistOn AmlodipineLisinoprilMetoprololEncouraged low salt dietOn TrazadoneOn AtorvastatinEncouraged physical activityDiet low in saturated and trans fatHealthy diet, including lots of fruits and vegetablesOn MemantineAriceptFollows up with a NeurologistOn LoratadineOn Tylenol Needs referral to pain specialist.heart failure and continues to take lasix 40mg twice dailycontinues to take ProAir and BreoEllipta prn. 2022-09-16 10:48:14 Heart failure, unspe cified [I50.9]> On FurosemideMetoprololFollows a Counter Top Assembler, will monitor edema and weight.Asthma [J45.909]> On BreoFluticasoneWill prescribe AlbuterolSees a PulmonologistHypertension [I10]> On AmlodipineLisinoprilMetoprololEncouraged low salt dietHyperlipidemia [E78.5]> On AtorvastatinEncouraged physical activityDiet low in saturated and trans fatHealthy diet, including lots of fruits and vegetablesChronic obstructive pulmonary disease, unspecified [J44.9]> continues to take ProAir and BreoEllipta prn.Phone (patient, parent, or guardian); 5-10 minutes of medical discussion (no modifier 95)Continue to see PCP. Follow-up with Loretta as needed for any acute or disease education needs that may arise 26/04. 2022-10-22 09:11:25 Medication Review by prescribing provider or pharmacist documented (1160F)Medication List Documented (1159F)Functional Status Assessed (1170F)Advance Care Directive Advance care planning discussion documented in the medical record (1158F)BMI obtained (3008F)Pain Assessment - Pain Documented (1125F)Televideo 30-39min; chronic exacerbation, 2 stable chronic or 1 acute illness add modifier 95Continue to see PCP. Follow-up with Loretta as needed for any acute or disease education needs that may arise.On FurosemideMetoprololFollows a Counter Top Assembler, will monitor edema and weight.10/22/22: Continue current treatment plan as directed.On Tylenol10/22/22: Continue current treatment plan as directed.On EliquisFollows Cardiology10/22/22: Continue current treatment plan as directed.On BreoFluticasoneAlbuterolFollows Pulmonologist10/22/22: Continue current treatment plan as directed.On AmlodipineLisinoprilMetoprololEncouraged low salt dietFollows PCP/Cardiology10/22/22: Continue current treatment plan as directed.On TrazadoneOn AtorvastatinEncouraged physical activityDiet low in saturated and trans fatHealthy diet, including lots of fruits and vegetablesFollows PCP10/22/22: Continue current treatment plan as directed.On MemantineAriceptFollows up with a Neurologist10/22/22: Continue current treatment plan as directed.On Loratadine10/22/22: Continue current treatment plan as directed.On AtorvastatinFollows PCP10/22/22: Continue current treatment plan as directed.On Tylenol Referral to pain specialist.10/22/22: Continue current treatment plan as directed.heart failure and continues to take Lasix 40mg twice daily10/22/22: Continue current treatment plan as directed.continues to take ProAir and BreoEllipta prn. 10/22/22: Continue current treatment plan as directed.Avoid spicy, fatty or fried food, caffeine, chocolateAvoid lying down after mealsAvoid eating late at nightWill prescribe OmeprazoleAvoid nephrotoxic medications (NSAIDS, high dose Gabapentin, Baclofen, Fleet Enema, Morphine/Codeine).Per outside care- Follows PulmonologyNeeds Disposable bed padsOn MetoprololFollows Cardiology 2022-12-09 09:22:26 Chronic obstructive pulmonary disease, unspecified [J44.9]> continues to take ProAir and BreoEllipta prn. 10/22/22: Continue current treatment plan as directed. 12/09/22: Continue current treatment plan as directed. Denies sob or wheezing. Hypertension [I10]> On AmlodipineLisinoprilMetoprololEncouraged low salt dietFollows PCP/Cardiology10/22/22: Continue current treatment plan as directed. 12/09/22: Continue current treatment plan as directed. Had a f/u appt. with PCP last month 11/26.Heart failure, unspecified [I50.9]> On FurosemideMetoprololFollows a Counter Top Assembler, will monitor edema and weight.10/22/22: Continue current treatment plan as directed. 12/09/22: Continue current treatment plan as directed. F/u with Cardiology on 02/23.Phone (patient, parent, or guardian); 5-10 minutes of medical discussion (no modifier 95)Continue to see PCP. Follow-up with Loretta as needed for any acute or disease education needs that may arise 26/04. 2023-01-19 12:12:29 Phone (patient, pare nt, or guardian); 5-10 minutes of medical discussion (no modifier 95)Continue to see PCP. Follow-up with Loretta as needed for any acute or disease education needs that may arise 26/04.On FurosemideMetoprololFollows a Counter Top Assembler, will monitor edema and weight.10/22/22: Continue current treatment plan as directed. Continue current treatment plan as directed. F/u with Cardiology on 02/23.On TylenolContinue current treatment plan as directed.On EliquisFollows Cardiology Continue current treatment plan as directed.On BreoFluticasoneAlbuterolFollows Deputy County Attorney Continue current treatment plan as directed.On AmlodipineLisinoprilMetoprololEncouraged low salt dietFollows PCP/Cardiology10/22/22: Continue current treatment plan as directed. Continue current treatment plan as directed. Had a f/u appt. with PCP last month 11/26.On TrazadoneOn AtorvastatinEncouraged physical activityDiet low in saturated and trans fatHealthy diet, including lots of fruits and vegetablesFollows PCPContinue current treatment plan as directed.On MemantineAriceptFollows up with a Neurologist Continue current treatment plan as directed.On Loratadine Continue current treatment plan as directed.On AtorvastatinFollows PCP Continue current treatment plan as directed.On Tylenol Referral to pain specialist.Continue current treatment plan as directed.heart failure and continues to take Lasix 40mg twice dailyContinue current treatment plan as directed.continues to take ProAir and BreoEllipta prn. 10/22/22: Continue current treatment plan as directed. Continue current treatment plan as directed. Denies sob or wheezing.Avoid spicy, fatty or fried food, caffeine, chocolateAvoid lying down after mealsAvoid eating late at nightWill prescribe OmeprazoleAvoid nephrotoxic medications (NSAIDS, high dose Gabapentin, Baclofen, Fleet Enema, Morphine/Codeine).Per outside care- Follows PulmonologyNeeds Disposable bed padsOn MetoprololFollows Cardiology 2023-02-18 07:57:26 Phone (patient, pare nt, or guardian); 5-10 minutes of medical discussion (no modifier 95)Continue to see PCP. Follow-up with [facility] as needed for any acute or disease education needs that may arise 26/04.On FurosemideMetoprololFollows a Counter Top Assembler, will monitor edema and weight.10/22/22: Continue current treatment plan as directed. Continue current treatment plan as directed. F/u with Cardiology on 02/23.On TylenolContinue current treatment plan as directed.On EliquisFollows Cardiology Continue current treatment plan as directed.On BreoFluticasoneAlbuterolFollows Deputy County Attorney Continue current treatment plan as directed.On AmlodipineLisinoprilMetoprololEncouraged low salt dietFollows PCP/Cardiology10/22/22: Continue current treatment plan as directed. Continue current treatment plan as directed. Had a f/u appt. with PCP last month 11/26.On TrazadoneOn AtorvastatinEncouraged physical activityDiet low in saturated and trans fatHealthy diet, including lots of fruits and vegetablesFollows PCPContinue current treatment plan as directed.On MemantineAriceptFollows up with a Neurologist Continue current treatment plan as directed.On Loratadine Continue current treatment plan as directed.On AtorvastatinFollows PCP Continue current treatment plan as directed.On Tylenol Referral to pain specialist.Continue current treatment plan as directed.heart failure and continues to take Lasix 40mg twice dailyContinue current treatment plan as directed.continues to take ProAir and BreoEllipta prn. 10/22/22: Continue current treatment plan as directed. Continue current treatment plan as directed. Denies sob or wheezing.Avoid spicy, fatty or fried food, caffeine, chocolateAvoid lying down after mealsAvoid eating late at nightWill prescribe OmeprazoleAvoid nephrotoxic medications (NSAIDS, high dose Gabapentin, Baclofen, Fleet Enema, Morphine/Codeine).Per outside care- Follows PulmonologyNeeds Disposable bed padsOn MetoprololFollows Cardiology 2023-03-25 10:57:40 Phone (patient, pare nt, or guardian); 5-10 minutes of medical discussion (no modifier 95)Continue to see PCP. [facility] or disease [facility] needs that may arise 26/04.On FurosemideMetoprololFollows a Counter Top Assembler, will monitor edema and weight.10/22/22: Continue current treatment plan as directed. Continue current treatment plan as directed. F/u with Cardiology q 6 monthOn TylenolContinue current treatment plan as directed.On EliquisFollows Cardiology Continue current treatment plan as directed.On BreoFluticasoneAlbuterolFollows Deputy County Attorney Continue current treatment plan as directed.On AmlodipineLisinoprilMetoprololEncouraged low salt dietFollows PCP/Cardiology10/22/22: Continue current treatment plan as directed. Continue current treatment plan as directed. Had a f/u appt. with PCP last month 03/23.On TrazadoneOn AtorvastatinEncouraged physical activityDiet low in saturated and trans fatHealthy diet, including lots of fruits and vegetablesFollows PCPContinue current treatment plan as directed.On MemantineFollows up with a Neurologist, wants a second opinion Continue current treatment plan as directed.On Loratadine Continue current treatment plan as directed.On AtorvastatinFollows PCP Continue current treatment plan as directed.On Tylenol Referral to pain specialist.Continue current treatment plan as directed.heart failure and continues to take Lasix 40mg twice dailyContinue current treatment plan as directed.continues to take ProAir and BreoEllipta prn. 10/22/22: Continue current treatment plan as directed. Continue current treatment plan as directed. Denies sob or wheezing.Avoid spicy, fatty or fried food, caffeine, chocolateAvoid lying down after mealsAvoid eating late at nightWill prescribe OmeprazoleAvoid nephrotoxic medications (NSAIDS, high dose Gabapentin, Baclofen, Fleet Enema, Morphine/Codeine).Per outside care- Follows PulmonologyNeeds Disposable bed padsOn MetoprololFollows Cardiology 2023-05-11 07:57:04 Phone (patient, pare nt, or guardian); 5-10 minutes of medical discussion (no modifier 95)Continue to see PCP. Follow-up with [facility] as needed for any acute or disease education needs that may arise 26/04.On FurosemideMetoprololFollows a Counter Top Assembler, will monitor edema and weight. Continue current treatment plan as directed. F/u with Cardiology q 6 monthOn TylenolContinue current treatment plan as directed.On EliquisFollows Cardiology Continue current treatment plan as directed. 2023-10-30 11:57:46 Phone (patient, pare nt, or guardian); 5-10 minutes of medical discussion (no modifier 95)Continue to see PCP. Follow-up with [facility] as needed for any acute or disease education needs that may arise 26/04.On FurosemideMetoprololFollows a Counter Top Assembler, will monitor edema and weight. Continue current treatment plan as directed. F/u with Cardiology q 6 monthOn TylenolContinue current treatment plan as directed.On EliquisFollows Cardiology Continue current treatment plan as directed.On BreoFluticasoneAlbuterolFollows Deputy County Attorney Continue current treatment plan as directed.On AmlodipineLisinoprilMetoprololEncouraged low salt dietFollows PCP/CardiologyContinue current treatment plan as directed. Had a f/u appt. with PCP last month 03/23.On TrazadoneOn AtorvastatinEncouraged physical activityDiet low in saturated and trans fatHealthy diet, including lots of fruits and vegetablesFollows PCPContinue current treatment plan as directed.On MemantineFollows up with a Neurologist, wants a second opinion Continue current treatment plan as directed.On Loratadine Continue current treatment plan as directed.On AtorvastatinFollows PCP Continue current treatment plan as directed.On Tylenol Referral to pain specialist.Continue current treatment plan as directed.heart failure and continues to take Lasix 40mg twice dailyContinue current treatment plan as directed.continues to take ProAir and BreoEllipta prn. Continue current treatment plan as directed. Denies sob or wheezing.Avoid spicy, fatty or fried food, caffeine, chocolateAvoid lying down after mealsAvoid eating late at nightWill prescribe OmeprazoleAvoid nephrotoxic medications (NSAIDS, high dose Gabapentin, Baclofen, Fleet Enema, Morphine/Codeine).Per outside care- Follows PulmonologyNeeds Disposable bed padsOn MetoprololFollows Cardiology 2024-01-25 06:17:12 Medication Review by prescribing provider or pharmacist documented (1160F)Medication List Documented (1159F)Functional Status Assessed (1170F)Advance Care Directive Advance care planning discussion documented in the medical record (1158F)BMI obtained (3008F)SBP 130-139 (3075F)DBP <80 (3078F)Televideo 30-39min; chronic exacerbation, 2 stable chronic or 1 acute illness add modifier 95Advance care planning discussed and documented ? advance care plan or surrogate decision-maker was documented in the medical record. (1123F)Pain Assessment - Pain Documented (1125F)Continue to see PCP. Follow-up with [facility] as needed for any acute or disease education needs that may arise.<Add contingency plans here>Monthly follow up calls with pt CONTINGENCY PLAN Why was the member in the hospital or ER most recently? Why are they most likely to go back? Please call [facility] if you have a change in condition, Blood pressure > 170/90 Fall, any unusual symptoms or have any medical questions!On FurosemideMetoprololFollows a Counter Top Assembler, will monitor edema and weight. Continue current treatment plan as directed. F/u with Cardiology q 6 monthOn TylenolContinue current treatment plan as directed.On EliquisFollows Cardiology Continue current treatment plan as directed.On BreoFluticasoneAlbuterolFollows Deputy County Attorney Continue current treatment plan as directed.On AmlodipineLisinoprilMetoprololEncouraged low salt dietFollows PCP/CardiologyContinue current treatment plan as directed. Had a f/u appt. with PCP last month 03/23.On TrazadoneOn AtorvastatinEncouraged physical activityDiet low in saturated and trans fatHealthy diet, including lots of fruits and vegetablesFollows PCPContinue current treatment plan as directed.On MemantineFollows up with a Neurologist, wants a second opinion Continue current treatment plan as directed.On Loratadine Continue current treatment plan as directed.On AtorvastatinFollows PCP Continue current treatment plan as directed.On Tylenol Referral to pain specialist.Continue current treatment plan as directed.heart failure and continues to take Lasix 40mg twice dailyContinue current treatment plan as directed.continues to take ProAir and BreoEllipta prn. Continue current treatment plan as directed. Denies sob or wheezing.Avoid spicy, fatty or fried food, caffeine, chocolateAvoid lying down after mealsAvoid eating late at nightWill prescribe OmeprazoleAvoid nephrotoxic medications (NSAIDS, high dose Gabapentin, Baclofen, Fleet Enema, Morphine/Codeine).Per outside care- Follows PulmonologyNeeds Disposable bed padsOn MetoprololFollows CardiologyReceives public health professor hourswalk with walker / 1 assistSkin care BID I have assessed this patient and determined her medical necessity for protective incontinence products as a result of mixed urinary Incontinence. Therefore, I am prescribing pull-ups. Use skin barrier cream to decrease moisture to skincontinues sertraline dailypreviously diagnosedPHQ 9 score routinely Goals Date Goal 2022-08-07 Remember to 2022-08-07 Call me if 2022-08-07 Keep it up 2023-01-19 1. Remember to keep all appointments with your PCP.2. Take all medication on time and try to eat healthy3. Call if you have questions or concerns before you go to the ER.4. Discussed how to contact [facility] via phone or tablet. 2023-02-18 1. Remember to keep all appointments with your PCP.2. Take all medication on time and try to eat healthy3. Call if you have questions or concerns before you go to the ER.4. Discussed how to contact [facility] via phone or tablet. 2023-03-25 1. Take all medicati on on time and try to eat healthy2. Call if you have questions or concerns before you go to the ER.3. Remember to keep all appointments with your PCP.4. Discussed how to contact [facility] via phone or tablet. Health Concerns Date Concern 2024-01-25 Visit completed usin g audio/video. Patient/Guardian agreed to visit via telehealth. Today, patient has chief complaint of: follow up care and comprehensive review.Reviewed Allergies, Medications, Active Medical conditions, past medical/surgical history, Social history. 2024-01-25 <add details of Adva mne Care Planning conversation using .acp FastKey> Advance Care Plan and Serious Illness ConversationDate of Conversation: 01/25/2024Life Limiting Diagnosis: Diagnosis: noneCurrently on Hospice NoCode Status: YES CPR: Attempt ResuscitationGoals of Care: Curative: Attempt to sustain life by all medically effective meansNutrition goals: No decision made about nutrition today; not discussedDo you have a Durable Power of Forestry Conservation Worker for Healthcare, or Healthcare Proxy Or Guardianship? Yes, POAIf so, Who? john Henry is hcpDo you have a written Advance Directive? Has no formal documentationOther details of discussion: (Who was present, patients description of wishes/goals)Today's plan: Advised patient to discuss wishes with [id number] : AD or surrogate was documented in the medical record. 2024-01-25 Most recent hospital stay(s) or ER visit(s) and precipitating factors: Urgent care 01/20 due to respiratory symptoms 2024-01-25 Open HEDIS Measure jl miranda: Reviewed
--- OUTSIDE RECORDS SUMMARY | 2024-11-26 17:05 | XMS_ITS | Clinical Summary ---
Author Organization [employer] Address [address] [place] [address] Care Team Providers Care Solar Thermal Technician Name Role Phone Unavailable Primary Care Provider Unavailabl e Immunizations Name Administration Dates Next Due Influenza High-dose Quadrivalent Preservative Fr ee 07/13/2022,06/26/2021 Influenza Injectable Quadriv alant Preservative Free IIV4 MDCK 08/28/2018 Influenza Quadrivalent Adjuvanted 07/07/2020 Influenza injectable quadriv alent IIV4 with preservative 10/01/2017 Influenza injectable quadrivalent preservative f ree 06/04/2016,06/05/2015 Influenza, High Dose Seasonal, Preservative Free 06/26/2016 Influenza, IIV3, injectable 08/13/2011, 0 Influenza, Split (incl. purified surface antigen ) 07/10/2013 Moderna Covid-19 Vaccine 6+ Bivalent 12/22/2022 Pneumococcal Conjugate PCV 20 06/22/2022 Pneumococcal Conjugate PCV 7 12/12/2006 Pneumococcal Polysaccharide PPSV23 01/14/2015 TD (adult), 2 Lf tetanus tox oid, preservative free, adsorbed 09/03/2006 Tdap 12/13/2021,10/01/2017 Zoster, Recombinant 06/10/2022,04/01/2022 Zoster, live 10/10/2014 Social History Tobacco Use Types Packs/Day Years Used Date Smoking Tobacco: Never Assessed Comments Unknown Sex and Gender Information Value Date Recorded Sex Assigned at Female 08/03/2022 10:17 AM EDT Legal Sex Female 10:17 AM EDT Gender Identity Female 08/03/2022 10:17 AM EDT Sexual Orientation Choose not to disclose 2021 10:17 AM EDT Last Filed Vital Signs Vital Sign Reading Time Taken Comments Blood Pressure 130/88 06/19/2021 12:09 AM EDT Pulse 75 06/19/2021 12:09 AM EDT Temperature - - Respiratory Rate - - Oxygen Saturation - - Inhaled Oxygen Concentration - - Weight 71.8 kg (158 lb 6.4 oz) 06/19/2021 12:09 AM EDT Height 160 cm (5' 3 ) 06/19/2021 12:09 AM EDT Body Mass Index 28.06 06/19/2021 12:09 AM EDT Plan of Treatment Health Maintenance Due Date Last Done Comments Depression Screening 1945 SDOH Screening 1945 Alcohol/Substance Use Screening 1959 Tobacco Screening 1959 Hepatitis C Screening 1965 RSV Patients and Patients Aged 60 years or older (1 - 1-dose 75+ series) 2022 COVID-19 Vaccine (2023- season) 2024 12/22/2022, 10/02/2021, 12/25/2020 Influenza Vaccine (#1) 2024 , 06/26/2021, 07/07/2020, Additional history exists Lipid Panel 03/25/2026 03/25/2021 DTaP/Tdap/Td Vaccines (3 - Td or Tdap) 12/14/2031 12/13/2021, 10/01/2017, 09/03/2006 Zoster Vaccines Completed 06/10/2022, 03/05, 10/10/2014 Pneumococcal Vaccine: 50+ Years Completed 06/22/2022, 01/14/2015, 12/12/2006 HIB Vaccines Aged Out No longer eligi ble based on patient's age to complete this topic HPV Vaccines Aged Out No longer eligi ble based on patient's age to complete this topic Hepatitis A Vaccines Aged Out No long er eligible based on patient's age to complete this topic Hepatitis B Vaccines Aged Out No long er eligible based on patient's age to complete this topic IPV Vaccines Aged Out No longer eligi ble based on patient's age to complete this topic Meningococcal Vaccine Aged Out No vlad demetrio eligible based on patient's age to complete this topic RSV under 20 months Aged Out No longe r eligible based on patient's age to complete this topic Rotavirus Vaccines Aged Out No longer eligible based on patient's age to complete this topic Procedures Procedure Name Priority Date/Time Associated Diagnosis Comments LIPID PANEL, STANDARD Routine 03/25/2021 1:25 PM EDT from Last 3 Months or Most Recently Relevant to Health Maintenance Results * LIPID PANEL, STANDARD (03/25/2021 1:25 PM EDT) Chol/HDLC Ratio 2.5 <5.0 (calc) [facility] Cholesterol, Total 142 <200 mg/dL [facility] HDL Cholesterol 56 > OR = 50 mg/dL [facility] LDL Cholesterol 73 mg/dL (calc) [facility] Comment: Reference range: <100 ?? Desirable range <100 mg/dL for primary prevention; ?? <70 mg/dL for patients with CHD or diabetic patients ?? with > or = 2 CHD risk factors. ?? LDL-C is now calculated using the Vikram ?? calculation, which is a validated novel method providing ?? better accuracy than the Friedewald equation in the ?? estimation of LDL-C. ?? Jamari ROCHA et al. ANIL. 2013;310(19): 5576-2326 ?? (http://education.[employer].com/faq/IFS273) Non-HDL Cholesterol 86 <130 mg/dL (calc) [facility] Comment: For patients with diabetes plus 1 major ASCVD risk ?? factor, treating to a non-HDL-C goal of <100 mg/dL ?? (LDL-C of <70 mg/dL) is considered a therapeutic ?? option. Triglycerides 51 <150 mg/dL [facility] 03/25/2021 1:25 PM EDT us Yeny Calderon MD LAB BLOOD ORDERABLES Fin al Result [facility] [address] from Last 3 Months or Most Recently Relevant to Health Maintenance Insurance [facility] DUAL COMPLETE
--- OUTSIDE RECORDS SUMMARY | 2024-11-26 17:05 | XMS_ITS | Clinical Summary ---
Author Organization [facility] Address [address] [place] [address] Care Team Providers Care Casing Tier Name Role Phone Unavailable Primary Care Provider Unavailabl e Source Comments PLEASE NOTE, if this patient is a minor, it may be UNLAWFUL to discuss sensitive information that is contained in these records (such as FAMILY PLANNING, MENTAL HEALTH or SUBSTANCE ABUSE) with the minor patient's parent or other person without the patient's specific authorization.[facility] Social History Tobacco Use Types Packs/Day Years Used Date Smoking Tobacco: Never Assessed Social Connections Answer Date Recorded Social Connections and Isolation 0 09/25/2021 Financial Resource Strain Answer Date R ecorded Financial Resource Strain 0 2020 Stress Answer Date Recorded Stress 0 09/25/2021 Physical Activity Answer Date Recorded Physical Activity 0 09/25/2021 Food Insecurity Answer Date Recorded Food 0 09/25/2021 Transportation Needs Answer Date Record ed Transportation 0 09/25/2021 Housing Stability Answer Date Recorded Housing 0 09/25/2021 Safety and Environment Answer Date Zeeshan rded Safety 0 09/25/2021 Utilities Answer Date Recorded Utilities 0 09/25/2021 Employment Answer Date Recorded Employment 0 09/25/2021 Comments Unknown Sex and Gender Information Value Date Recorded Sex Assigned at Not on file Legal Sex Female 7:51 AM PDT Gender Identity Not on file Sexual Orientation Not on file Plan of Treatment Not on file Insurance GENERIC - DENTAL
[2024-11-26 17:27] LABS: MANUAL DIFF FLAG NO
[2024-11-26 17:35] LABS: Basophils Percent Auto 0.1 % (0-2); Eosinophils Absolute Auto 0.2 X10*3/uL (0.0-0.4); Eosinophils Percent Auto 2.4 % (0-4); Hematocrit 37.7 % (37.0-47.0); Hemoglobin 12.5 g/dl (12.0-16.0); Imm Gran Abs Auto 0.02 X10*3/uL (0.00-0.03); Imm Gran Pct Auto 0.3 % (0.0-0.4); Lymphocytes Percent Auto 12.5 % (20-40); Mean Corpuscular HGB Conc 33.2 g/dl (31.0-35.0); Mean Corpuscular Hemoglobin 29.8 pg (27.0-33.0); Mean Platelet Volume 11.4 fL (9.4-12.3); Monocytes Absolute Auto 0.6 X10*3/uL (0.1-1.2); Neutrophils Absolute Auto 6.1 x10*3/uL (2.0-8.3); Neutrophils Percent Auto 77.7 % (45-73); Platelet Count 205 X10*3/uL (160-400); Red Blood Count 4.19 X10*6/uL (4.20-5.50); White Blood Count 7.9 X10*3/uL (4.8-10.8)
[2024-11-26 18:02] LABS: Alanine Aminotransferase 22 U/L (0-31); Albumin Level 3.6 g/dL (3.5-5.0); Alkaline Phosphatase 68 U/L (39-117); Anion Gap 10 (12-20); Aspartate Amino Transferase 30 U/L (5-31); Bilirubin Total 0.4 mg/dL (0.0-1.0); Blood Urea Nitrogen 19 mg/dL (9-16); Calcium 8.9 mg/dL (8.4-10.2); Carbon Dioxide 27 mmol/L (22-29); Chloride 111 mmol/L (96-108); Creatinine Clr Calc Pharmacy 48.5; Estimated Glomerular Filt Rate 58; Glucose Random 94 mg/dL (60-115); Potassium 3.6 mmol/L (3.3-5.1); Sodium 144 mmol/L (135-145); Total Protein 6.8 g/dL (6.5-8.0)
[2024-11-26] MEDS: Amoxicillin/Potassium Clav 875 MG TABLET PO (19:16)
[2024-11-26 19:23] VITALS: BP 156/75; PULSE 66; RESP 16; TEMP 36.9; O2SAT 98
== END 2024-11-26 19:24 | disposition home or self-care (01) ==
PROVIDERS: Emergency Provider Internal Medicine; PCP Internal Medicine
DX: K52.9 Noninfective gastroenteritis and colitis, unspecified (principal); I48.91 Unspecified atrial fibrillation; R10.32 Left lower quadrant pain; I25.10 Atherosclerotic heart disease of native coronary artery without angina pectoris; Z79.01 Long term (current) use of anticoagulants; Z79.899 Other long term (current) drug therapy
CPT/HCPCS: 36415; 74176; 80053; 85025; 99284

== ENCOUNTER → 2024-11-26 17:19 | Outpatient (BNV) | payer OTHER, SELFPAY | PROVIDERS: Emergency Provider Internal Medicine; PCP Internal Medicine; Visit Provider Radiology Diagnostic Radiology | DX: A09 Infectious gastroenteritis and colitis, unspecified (principal); K57.30 Diverticulosis of large intestine without perforation or abscess without bleeding | CPT/HCPCS: 74176 ==

== ENCOUNTER 2024-11-29 09:24 | Outpatient (AMB) | payer OTHER, SELFPAY ==
[2024-11-29 09:25] VITALS: BP 118/77; PULSE 77; O2SAT 97; BMI 26.9
--- NOTE | 2024-11-29 09:25 | MHC.OFFVIS ---
Vital Signs 11/29/24 09:25 Height 5 ft 4 in Weight 156 lb 8.451 oz BMI 26.9 BP 118/77 Blood Pressure Location Rt brachial Position Sitting Pulse 77 Pulse Source Doppler Pulse Oximetry (%) 97 Oxygen Delivery Method Room Air Intake Visit Reasons: Asthma Clay Transporter Required: Yes Clay Transporter Name: Sheeba Cole Caal Allergies oxycodone [From Percocet] Allergy (Intermediate, Verified 11/29/24 09:33) Agitated morphine Adverse Reaction (Verified 11/29/24 09:33) Agitated HPI HPI Asthma: Details: 79-year-old lady, lifetime nonsmoker, with underlying history hypertension, AFib previously on Multaq, now followed for asthma and pulmonary component to dyspnea. She has been using nebulized Brovana, budesonide and duo nebswith good control of her symptoms. For her GERD symptoms she is on PPI and famotidine with reasonable control of his symptoms. Patient has been complaining of worsening bronchitic cough for the last few weeks and was treated with Augmentin course with moderate improvement, but not complete resolution of her symptoms. [facility] Medical History Colitis Schatzki's ring Depression Hypersomnia Snoring Cognitive impairment History of CVA (cerebrovascular accident) Afib Acute CVA (cerebrovascular accident) IBS (irritable bowel syndrome) Abdominal hyperesthesia Dyspepsia Osteoarthritis of lumbar spine Scoliosis GERD (gastroesophageal reflux disease) HTN (hypertension) Surgical History Status post ablation of incompetent vein using laser (06/12/22) Hx of hysterectomy H/O oophorectomy H/O bilateral breast reduction surgery Family History Son HTN (hypertension) Father No problems noted. Mother No problems noted. Social History Household Members: None Housing: Apartment Are you a primary transitional care manager to a significant other at home: No Do you presently have visiting nurse or other home services: No Alcohol intake: never Patient Tobacco Use Status: Never used Tobacco e-Cigarette/Vaping Use: Never Used Second Hand Smoke Exposure: No Advance Directives Date on File: 08/13/21 service: No Current occupational status: disabled Cognitive needs: No Hearing needs: No Vision needs: Yes (Glasses) Review of Systems Const Denies daytime sleepiness, Denies excessive sweating, Denies fatigue, Denies fever(s), Denies lethargy, Denies malaise, Denies night sweats, Denies snoring and Denies weight loss Eyes Denies blurry vision and Denies itchy eyes ENT Denies nasal congestion, Denies post nasal drip, Denies sinus pain, Denies sinus pressure and Denies other ( Thrush) Card Denies chest pain, Denies pedal edema, Denies dyspnea, Denies orthopnea and Denies paroxysmal nocturnal dyspnea Resp Reports cough, Denies hemoptysis, Denies excessive phlegm production, Denies dyspnea, Denies snoring and Denies wheezing GI Denies abdominal pain and Denies heartburn Musc Denies myalgias, Denies arthralgias and Denies joint swelling Skin/Breast Denies rash Neuro Denies memory loss and Denies seizure-like activity Psych Denies abnormal sleep pattern, Denies anxiety and Denies memory loss Endo Denies excessive sweating, Denies fatigue and Denies heat intolerance Eric/Lymph Denies easy bruising Aller/Immun Denies itchy eyes, Denies seasonal rhinorrhea and Denies wheezing Physical Exam Vital Signs: Last Vital Signs Pulse 77 11/29/24 09:25 BP 118/77 11/29/24 09:25 Pulse Ox 97 11/29/24 09:25 Oxygen Delivery Method Room Air 11/29/24 09:25 BMI result Body Mass Index 26.9 Const General: no acute distress and alert Nutritional Appearance: not obese Orientation/consciousness: Other orientation findings ( oriented) HEENT Head: Yes atraumatic Eyes General: appearance normal, both eyes and all related structures Sclerae: sclerae normal EOM: EOMs intact bilaterally Neck Neck: Yes supple Lymphatic: no lymphadenopathy noted Resp Effort & Inspection: normal respiratory effort and no use of accessory muscles Auscultation: clear to auscultation bilaterally Cardio Rate: regular rate Rhythm: regular rhythm Heart sounds: no gallops, no murmurs and no rubs Skin General skin exam: other ( warm) Extrem General: No clubbing, No cyanosis and No edema Assessment & Plan Assessment & Plan (1) Asthma: Code(s): J45.909 - Unspecified asthma, uncomplicated Category: Medical Plan: Baseline well controlled on nebulized budesonide, Brovana, and duo nebs. Continue current regimen. Now with bronchitic exacerbation with partial response to initial Augmentin course, will extend Augmentin course for additional 10 days. (2) Chronic cough: Code(s): R05.3 - Chronic cough Category: Medical Plan: With significant GERD component now reasonably well controlled on current regimen of pantoprazole and famotidine. Medications: Refilled amoxicillin-pot clavulanate 875-125 mg 1 tab PO BID 20 tabs 0RF Coding Level of Care Code Est Pt Level 4 (32142) Diagnoses Asthma J45.909 Chronic cough R05.3
--- OUTSIDE RECORDS SUMMARY | 2024-11-29 10:37 | XMS_ITS | Clinical Summary ---
Author Organization [employer] Address [address] [place] [address] Care Team Providers Care Aquatics Instructor Name Role Phone Unavailable Primary Care Provider [...] [facility] LDL Cholesterol 73 mg/dL (calc) [facility] Comment: Reference range: <100 ?? [...] ?? Jamari ROCHA et al. ANIL. 2013;310(19): 3157-8581 ?? (http://education.[employer].com/faq/ENE687) Non-HDL Cholesterol 86 <130 mg/dL (calc) [facility] Comment: For patients with diabetes plus 1 major ASCVD risk ?? factor, treating to a non-HDL-C goal of <100 mg/dL ?? (LDL-C of <70 mg/dL) is considered a therapeutic ?? option. Triglycerides 51 <150 mg/dL [facility] 03/25/2021 1:25 PM EDT us Yeny Calderon MD LAB BLOOD ORDERABLES Fin al Result [facility] [address] from Last 3 Months or Most Recently Relevant to Health Maintenance Insurance [facility] DUAL COMPLETE
--- OUTSIDE RECORDS SUMMARY | 2024-11-29 10:38 | XMS_ITS ---
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 Setter Name Role Phone Hannah Jain Unavailable [phone] Unavailable Unavailable [phone] Unavailable Unavailable Unavailable Unavailable Unavailable [phone] Reason for Referral Not Available Allergies, adverse reactions, alerts Allergen Type Reaction Severity Status Onset Date Oxycodone Allergy to substance (disorder) Hives Unknown Active N/A History of medication use Medication Class Instructions Start Date End Date Lisinopril 40 mg Tab take 1 tablet by mo gah daily 2022-02-10 No Data Available Eliquis 5 [...] sciatica Active 08-07 N/A Unspecified atherosclerosis of [place] arteries of extremities, unspecified extremity Active 2022-08-07 [...] Active 2024-01-25 N/A [facility] Active 2023-12-11 N/A Incontinence Active 2024-01-25 N/A Major depressive disorder, recurrent, moderate Active 2024-02-02 N/A Encounters Encounters Type Facility Date of Service Diagnosis/Co mplaint New patient,40-59min; chronic exacerbation, 2 stable chronic or 1 acute illness add add modifier 95 for video (do not use for phone, instead use 13793-94) [facility] Hypertensive heart disease w ith heart failureHeart failure, unspecifiedSacroiliitis, not elsewhere classifiedOther thrombophiliaUnspecified atrial fibrillationUnspecified asthma, uncomplicatedInsomnia, unspecifiedHyperlipidemia, unspecifiedUnspecified dementia without behavioral disturbanceOther seasonal allergic rhinitisUnsp athscl [place] arteries of extremities, unsp extremityLumbago with sciatica, unspecified sideOther chronic painSecondary hyperaldosteronismChronic obstructive pulmonary disease, unspecified New patient,40-59min; chronic exacerbation, 2 stable chronic or 1 acute illness add add modifier 95 for video (do not use for phone, instead use 61534-85) [facility] New patient,40-59min; chronic exacerbation, 2 stable chronic or 1 acute illness add add modifier 95 for video (do not use for phone, instead use 29426-61) [facility] New patient,40-59min; chronic exacerbation, 2 stable chronic or 1 acute illness add add modifier 95 for video (do not use for phone, instead use 86428-87) [facility] New patient,40-59min; chronic exacerbation, 2 stable chronic or 1 acute illness add add modifier 95 for video (do not use for phone, instead use 23679-60) [facility] New patient,40-59min; chronic exacerbation, 2 stable chronic or 1 acute illness add add modifier 95 for video (do not use for phone, instead use 89574-99) [facility] New patient,40-59min; chronic exacerbation, 2 stable chronic or 1 acute illness add add modifier 95 for video (do not use for phone, instead use 46701-30) [facility] No Data Available [facility] [place]22 Heart failure, unspecifiedUnspecified asthma, uncomplicatedHyperlipidemia, unspecifiedChronic obstructive pulmonary disease, unspecifiedHypertensive heart disease with heart failure Estab. patient 30-39min; chronic exacerbation, 2 stable chronic or 1 acute illness add add modifier 95 for video, (do not use for phone, instead use 09010-91) [facility] Heart failure, unspecifiedSacroiliitis, not elsewhere classifiedOther thrombophiliaUnspecified atrial fibrillationUnspecified asthma, uncomplicatedHyp hrt & chr kdny dis w hrt fail and stg 1-4/unsp chr kdnyInsomnia, unspecifiedHyperlipidemia, unspecifiedUnspecified dementia without behavioral disturbanceOther seasonal allergic rhinitisUnsp athscl [place] arteries of extremities, unsp extremityLumbago with sciatica, unspecified sideOther chronic painSecondary hyperaldosteronismChronic obstructive pulmonary disease, unspecifiedGastro-esophageal reflux disease without esophagitisChronic kidney disease, stage 3aInterstitial pulmonary disease, unspecifiedUnspecified urinary incontinenceOther forms of acute ischemic heart disease Estab. patient 30-39min; chronic exacerbation, 2 stable chronic or 1 acute illness add add modifier 95 for video, (do not use for phone, instead use 04550-00) [facility] Estab. patient 30-39min; chronic exacerbation, 2 stable chronic or 1 acute illness add add modifier 95 for video, (do not use for phone, instead use 75069-28) [facility] Estab. patient 30-39min; chronic exacerbation, 2 stable chronic or 1 acute illness add add modifier 95 for video, (do not use for phone, instead use 21669-97) [facility] Estab. patient 30-39min; chronic exacerbation, 2 stable chronic or 1 acute illness add add modifier 95 for video, (do not use for phone, instead use 81690-15) [facility] Estab. patient 30-39min; chronic exacerbation, 2 stable chronic or 1 acute illness add add modifier 95 for video, (do not use for phone, instead use 14402-88) [facility] Estab. patient 30-39min; chronic exacerbation, 2 stable chronic or 1 acute illness add add modifier 95 for video, (do not use for phone, instead use 94493-28) [facility] No Data Available [facility]20[place] Chronic obstructive pulmonar y disease, unspecifiedHypertensive heart disease with heart failureHeart failure, unspecified No Data Available [facility] Heart failure, unspecifiedSacroiliitis, not elsewhere classifiedOther thrombophiliaUnspecified atrial fibrillationUnspecified asthma, uncomplicatedHyp hrt & chr kdny dis w hrt fail and stg 1-4/unsp chr kdnyInsomnia, unspecifiedHyperlipidemia, unspecifiedUnspecified dementia without behavioral disturbanceOther seasonal allergic rhinitisUnsp athscl [place] arteries of extremities, unsp extremityLumbago with sciatica, unspecified sideOther chronic painSecondary hyperaldosteronismChronic obstructive pulmonary disease, unspecifiedGastro-esophageal reflux disease without esophagitisChronic kidney disease, stage 3aInterstitial pulmonary disease, unspecifiedUnspecified urinary incontinenceOther forms of acute ischemic heart disease No Data Available [facility] No Data Available [facility] No Data Available [facility] No Data Available [facility] No Data Available [facility] No Data Available [facility]18[place]2023 Hyp hrt & chr kdny dis w hrt fail and stg 1-4/unsp chr kdnyHeart failure, unspecifiedChronic kidney disease, stage 3aSecondary hyperaldosteronismSacroiliitis, not elsewhere classifiedOther thrombophiliaUnspecified atrial fibrillationUnspecified asthma, uncomplicatedInsomnia, unspecifiedHyperlipidemia, unspecifiedUnspecified dementia without behavioral disturbanceOther seasonal allergic rhinitisUnsp athscl [place] arteries of extremities, unsp extremityLumbago with sciatica, unspecified sideOther chronic painChronic obstructive pulmonary disease, unspecifiedGastro-esophageal reflux disease without esophagitisInterstitial pulmonary disease, unspecifiedUnspecified urinary incontinenceOther forms of acute ischemic heart disease No Data Available [facility] No Data Available [facility]20[place] No Data Available [facility] No Data Available [facility] No Data Available [facility] No Data Available [facility] 03[place]20[place] Hyp hrt & chr kdny dis w hrt fail and stg 1-4/unsp chr kdnyChronic kidney disease, stage 3aHeart failure, unspecifiedSacroiliitis, not elsewhere classifiedOther thrombophiliaUnspecified atrial fibrillationUnspecified asthma, uncomplicatedInsomnia, unspecifiedHyperlipidemia, unspecifiedUnspecified dementia without behavioral disturbanceOther seasonal allergic rhinitisUnsp athscl [place] arteries of extremities, bilateral legsLumbago with sciatica, unspecified sideOther chronic painSecondary hyperaldosteronismChronic obstructive pulmonary disease, unspecifiedGastro-esophageal reflux disease without esophagitisInterstitial pulmonary disease, unspecifiedUnspecified urinary incontinenceAcute ischemic heart disease, unspecified No Data Available [facility] No Data Available [facility] 03[place] No Data Available [facility] 03/[place]2023 No Data Available [facility] [place] 03/[place]2023 No Data Available [facility]2023 No Data Available [facility]2023 Heart failure, unspecifiedSacroiliitis, not elsewhere classifiedOther thrombophiliaUnspecified atrial fibrillationUnspecified asthma, uncomplicated No Data Available [facility] 05[place]2023 No Data Available [facility] No Data Available [facility]20[place] No Data Available [facility]20[place] No Data Available [facility] No Data Available [facility] No Data Available [facility]2023 Heart failure, unspecifiedSacroiliitis, not elsewhere classifiedOther thrombophiliaUnspecified atrial fibrillationUnspecified asthma, uncomplicatedHyp hrt & chr kdny dis w hrt fail and stg 1-4/unsp chr kdnyInsomnia, unspecifiedHyperlipidemia, unspecifiedUnspecified dementia without behavioral disturbanceOther seasonal allergic rhinitisUnsp athscl [place] arteries of extremities, unsp extremityLumbago with sciatica, unspecified sideOther chronic painSecondary hyperaldosteronismChronic obstructive pulmonary disease, unspecifiedGastro-esophageal reflux disease without esophagitisChronic kidney disease, stage 3aInterstitial pulmonary disease, unspecifiedUnspecified urinary incontinenceOther forms of acute ischemic heart disease No Data Available [facility] No Data Available [facility] No Data Available [facility] No Data Available [facility] No Data Available [facility] No Data Available [facility]20[place] Estab. patient 30-39min; chronic exacerbation, 2 stable chronic or 1 acute illness add add modifier 95 for video, (do not use for phone, instead use 41342-62) [facility] Heart failure, unspecifiedSacroiliitis, not elsewhere classifiedOther thrombophiliaUnspecified atrial fibrillationUnspecified asthma, uncomplicatedEssential (primary) hypertensionInsomnia, unspecifiedHyperlipidemia, unspecifiedUnspecified dementia without behavioral disturbanceOther seasonal allergic rhinitisUnsp athscl [place] arteries of extremities, unsp extremityLumbago with sciatica, [...] (do not use for phone, instead use 20439-33) [facility] Estab. patient 30-39min; chronic exacerbation, 2 stable chronic or 1 acute illness add add modifier 95 for video, (do not use for phone, instead use 55188-97) [facility] Estab. patient 30-39min; chronic exacerbation, 2 stable chronic or 1 acute illness add add modifier 95 for video, (do not use for phone, instead use 15338-83) [facility] Estab. patient 30-39min; chronic exacerbation, 2 stable chronic or 1 acute illness add add modifier 95 for video, (do not use for phone, instead use 91753-45) [facility] Estab. patient 30-39min; chronic exacerbation, 2 stable chronic or 1 acute illness add add modifier 95 for video, (do not use for phone, instead use 44416-21) [facility] Estab. patient 30-39min; chronic exacerbation, 2 stable chronic or 1 acute illness add add modifier 95 for video, (do not use for phone, instead use 92739-60) [facility] Estab. patient 30-39min; chronic exacerbation, 2 stable chronic or 1 acute illness add add modifier 95 for video, (do not use for phone, instead use 07869-35) [facility] Estab. patient 30-39min; chronic exacerbation, 2 stable chronic or 1 acute illness add add modifier 95 for video, (do not use for phone, instead use 12230-67) [facility] Estab. patient 30-39min; chronic exacerbation, 2 stable chronic or 1 acute illness add add modifier 95 for video, (do not use for phone, instead use 65618-50) [facility] Vital Signs Date of Collection [...] Time Current Smoking Status Never smoker 2024-11-05 8 Sex Female History of Procedures Procedures Service Procedure code Service date Servicing provider Phone# New patient,40-59min; chronic exacerbation, 2 stable chronic or 1 acute illness add add modifier 95 for video (do not use for phone, instead use 37133-89) [id number] 2022-08-07 No Data Available No Data Availa [...] le No Data Available No Data Available [id number] 2022-09-16 No Data Available No Data Available Estab. patient 30-39min; chronic exacerbation, 2 stable chronic or 1 acute illness add add modifier 95 for video, (do not use for phone, instead use 93198-05) [id number] 2022-10-22 No Data Available No Data Availa [...] 1125F 2022-10-22 No Data Available No Data Miguelina ilable No Data Available [id number] 2022-12-09 No Data Available No Data Available No Data Available [id number] 2023-01-19 No Data Available No Data Available [...] No Data Availa ble No Data Available [id number] 2023-02-18 No Data Available No Data Available [...] Available No Data Available No Data Available [id number] 2023-03-25 No Data Available No Data Available [...] le No Data Available No Data Available [id number] 2023-05-11 No Data Available No Data Available [...] Available No Data Available No Data Available [id number] 2023-10-30 No Data Available No Data Available [...] (do not use for phone, instead use 97286-42) [id number] 2024-01-25 No Data Available No Data Availa [...] to atrial fibrillationAsthmaHypertensionInsomniaHyperlipidemiaDementiaSeasonal allergic rhinitisUnspecified atherosclerosis of [place] arteries of extremities, unspecified extremityChronic low back pain with sciaticaSecondary hyperaldosteronismChronic obstructive pulmonary disease, unspecified 2022-09-16 10:48:14 Heart failure, unspecified [I50.9]Asthma [J45.909]Hypertension [I10]Hyperlipidemia [E78.5]Chronic obstructive pulmonary disease, unspecified [J44.9] 2022-10-22 09:11:25 Heart failure, unspecifiedSacroiliitis, not elsewhere classifiedHypercoagulability due to atrial fibrillationAsthmaHypertensionInsomniaHyperlipidemiaDementiaSeasonal allergic rhinitisUnspecified atherosclerosis of [place] arteries of extremities, unspecified extremityChronic low back pain with sciaticaSecondary hyperaldosteronismChronic obstructive pulmonary disease, unspecifiedGERD (gastroesophageal reflux disease)Chronic kidney disease, stage 3aInterstitial pulmonary disease, unspecifiedBladder incontinenceOther forms of acute ischemic heart disease 2022-12-09 09:22:26 Chronic obstructive pulmonary disease, u nspecified [J44.9]Hypertension [I10]Heart failure, unspecified [I50.9] 2023-01-19 12:12:29 Heart failure, unspecifiedSacroiliitis, not elsewhere classifiedHypercoagulability due to atrial fibrillationAsthmaHypertensionInsomniaHyperlipidemiaDementiaSeasonal allergic rhinitisUnspecified atherosclerosis of [place] arteries of extremities, unspecified extremityChronic low back [...] ongoingSeasonal allergic rhinitis - ongoingUnspecified atherosclerosis of [place] arteries of extremities, unspecified extremity - ongoingChronic [...] ongoingSeasonal allergic rhinitis - ongoingUnspecified atherosclerosis of [place] arteries of extremities, unspecified extremity - ongoingChronic [...] to atrial fibrillationAsthmaHypertensionInsomniaHyperlipidemiaDementiaSeasonal allergic rhinitisUnspecified atherosclerosis of [place] arteries of extremities, unspecified extremityChronic low back [...] to atrial fibrillationAsthmaHypertensionInsomniaHyperlipidemiaDementiaSeasonal allergic rhinitisUnspecified atherosclerosis of [place] arteries of extremities, unspecified extremityChronic low back [...] education needs that may arise.On FurosemideMetoprololFollows a Christmas Tree Grower, will monitor edema and weight.On TylenolOn EliquisOn [...] failure, unspe cified [I50.9]> On FurosemideMetoprololFollows a Christmas Tree Grower, will monitor edema and weight.Asthma [J45.909]> On [...] education needs that may arise.On FurosemideMetoprololFollows a Christmas Tree Grower, will monitor edema and weight.10/22/22: Continue current [...] 11/26.Heart failure, unspecified [I50.9]> On FurosemideMetoprololFollows a Christmas Tree Grower, will monitor edema and weight.10/22/22: Continue current [...] needs that may arise 26/04.On FurosemideMetoprololFollows a Christmas Tree Grower, will monitor edema and weight.10/22/22: Continue current treatment plan as directed. Continue current treatment plan as directed. F/u with Cardiology on 02/23.On TylenolContinue current treatment plan as directed.On EliquisFollows Cardiology Continue current treatment plan as directed.On BreoFluticasoneAlbuterolFollows Dedicated Intermodal Truck Driver Continue current treatment plan as directed.On AmlodipineLisinoprilMetoprololEncouraged [...] needs that may arise 26/04.On FurosemideMetoprololFollows a Christmas Tree Grower, will monitor edema and weight.10/22/22: Continue current treatment plan as directed. Continue current treatment plan as directed. F/u with Cardiology on 02/23.On TylenolContinue current treatment plan as directed.On EliquisFollows Cardiology Continue current treatment plan as directed.On BreoFluticasoneAlbuterolFollows Dedicated Intermodal Truck Driver Continue current treatment plan as directed.On AmlodipineLisinoprilMetoprololEncouraged [...] modifier 95)Continue to see PCP. [facility] or disease education needs that may arise 26/04.On FurosemideMetoprololFollows a Christmas Tree Grower, will monitor edema and weight.10/22/22: Continue current treatment plan as directed. Continue current treatment plan as directed. F/u with Cardiology q 6 monthOn TylenolContinue current treatment plan as directed.On EliquisFollows Cardiology Continue current treatment plan as directed.On BreoFluticasoneAlbuterolFollows Dedicated Intermodal Truck Driver Continue current treatment plan as directed.On AmlodipineLisinoprilMetoprololEncouraged [...] needs that may arise 26/04.On FurosemideMetoprololFollows a Christmas Tree Grower, will monitor edema and weight. Continue current [...] needs that may arise 26/04.On FurosemideMetoprololFollows a Christmas Tree Grower, will monitor edema and weight. Continue current treatment plan as directed. F/u with Cardiology q 6 monthOn TylenolContinue current treatment plan as directed.On EliquisFollows Cardiology Continue current treatment plan as directed.On BreoFluticasoneAlbuterolFollows Dedicated Intermodal Truck Driver Continue current treatment plan as directed.On AmlodipineLisinoprilMetoprololEncouraged [...] Documented (1125F)Continue to see PCP. Follow-up with [facility] as needed for any acute or disease education needs that may arise.<Add contingency plans here>Monthly follow up calls with pt CONTINGENCY PLAN Why was the member in the hospital or ER most recently? Why are they most likely to go back? Please call [facility] if you have a change in condition, Blood pressure > 170/90 Fall, any unusual symptoms or have any medical questions!On FurosemideMetoprololFollows a Christmas Tree Grower, will monitor edema and weight. Continue current treatment plan as directed. F/u with Cardiology q 6 monthOn TylenolContinue current treatment plan as directed.On EliquisFollows Cardiology Continue current treatment plan as directed.On BreoFluticasoneAlbuterolFollows Dedicated Intermodal Truck Driver Continue current treatment plan as directed.On AmlodipineLisinoprilMetoprololEncouraged [...] Follows PulmonologyNeeds Disposable bed padsOn MetoprololFollows CardiologyReceives tennis desk team member hourswalk with walker / 1 assistSkin care [...] to the ER.4. Discussed how to contact [facility] via phone or tablet. 2023-02-18 1. Remember to keep all appointments with your PCP.2. Take all medication on time and try to eat healthy3. Call if you have questions or concerns before you go to the ER.4. Discussed how to contact [facility] via phone or tablet. 2023-03-25 1. Take all medicati on on time and try to eat healthy2. Call if you have questions or concerns before you go to the ER.3. Remember to keep all appointments with your PCP.4. Discussed how to contact [facility] via phone or tablet. Health Concerns Date Concern 2024-01-25 Visit completed usin g audio/video. Patient/Guardian agreed to visit via telehealth. Today, patient has chief complaint of: follow up care and comprehensive review.Reviewed Allergies, Medications, Active Medical conditions, past medical/surgical history, Social history. 2024-01-25 <add details of Adva nye Care Planning conversation using .acp FastKey> Advance Care Plan and Serious Illness ConversationDate of Conversation: 01/25/2024Life Limiting Diagnosis: Diagnosis: noneCurrently on Hospice NoCode Status: YES CPR: Attempt ResuscitationGoals of Care: Curative: Attempt to sustain life by all medically effective meansNutrition goals: No decision made about nutrition today; not discussedDo you have a Durable Power of Clerk for Healthcare, or Healthcare Proxy Or Guardianship? Yes, POAIf so, Who? john Henry is hcpDo you have a written Advance Directive? Has no formal documentationOther details of discussion: (Who was present, patients description of wishes/goals)Today's plan: Advised patient to discuss wishes with [id number] : AD or surrogate was documented in the medical record. 2024-01-25 Most recent hospital stay(s) or ER visit(s) and precipitating factors: Urgent care 01/20 due to respiratory symptoms 2024-01-25 Open HEDIS Measure jl miranda: Reviewed
--- OUTSIDE RECORDS SUMMARY | 2024-11-29 10:38 | XMS_ITS | Clinical Summary ---
Author Organization [facility] Address [address] [place] [address] Care Team Providers Care Gear Changer Name Role Phone Unavailable Primary Care Provider [...]
== END 2024-11-29 09:47 | disposition home or self-care (01) ==
PROVIDERS: PCP Internal Medicine; Visit Provider Internal Medicine Pulmonary Disease
DX: J45.909 Unspecified asthma, uncomplicated (principal); R05.3 Chronic cough
CPT/HCPCS: 99214

== ENCOUNTER → 2024-11-29 09:24 | Outpatient (BNVA) | payer OTHER, SELFPAY | PROVIDERS: PCP Internal Medicine; Visit Provider Internal Medicine Pulmonary Disease | DX: J45.909 Unspecified asthma, uncomplicated (principal); R05.3 Chronic cough | CPT/HCPCS: 99212 ==

== ENCOUNTER 2024-12-04 09:01 | Outpatient (AMB) | payer OTHER, SELFPAY ==
[2024-12-04 09:02] VITALS: BP 146/70; PULSE 80; O2SAT 96; BMI 25.7
--- NOTE | 2024-12-04 09:02 | A.OFFVIS_ITS ---
Vital Signs 12/04/24 09:02 Height 5 ft 4 in Weight 149 lb 14.629 oz BMI 25.7 BP 146/70 H Blood Pressure Location Rt brachial Position Sitting Pulse 80 Pulse Source Pulse Oximeter Pulse Oximetry (%) 96 Oxygen Delivery Method Room Air Intake Visit Reasons: GERD, dysphagia Intake Note: ESTABLISHED PATIENT for mgmt of GERD w/ dysphagia. Chief Complaint; C/O reflux (burning), bloating, and gas related concerns. Pt confirms that she is still taking all of her medications, and specifically, she is taking pantoprazole every morning. Pt denies any additional concerns at this time. 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 Assistant Required: Yes 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 Assistant Services: 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 Assistant Present 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 Assistant Name: ARMIN GRIFFITH + Hermes [phone] Information Interpreted: non-clinical & clinical Accompanied by: Self / Same As Patient Allergies oxycodone [From Percocet] Allergy (Intermediate, Verified 12/04/24 09:02) Agitated morphine Adverse Reaction (Verified 12/04/24 09:02) Agitated HPI HPI GERD, dysphagia: Details: LAST VISIT Difficulty swallowing GERD (gastroesophageal reflux disease) Paulatzki's ring Plan Patient will continue taking pantoprazole in the morning and famotidine at bedtime. Avoid dietary triggers and late night snacking. Staying upright for minimum 3 hours after meals discussed with patient. Patient is feeling well right now, however if she will have trouble swallowing or have severe reflux will send her for manometry. I will see her in 3 months, sooner on as needed basis. She is agreeable to this plan and verbalizes understanding of instructions. She was given the opportunity to ask questions and all questions answered. ? HOSPITAL ADMISSION CONSULT WITH DR. DOSS 10/05/2024 Plan 78 year old Sami-speaking female with history of CVA, CAD, paroxysmal atrial fibrillation on Eliquis, mood disorder, cognitive impairment, gastroesophageal reflux disease, hypertension seen at [facility] [place] ED on 10/04/24 with bright red blood in stools x 1 day prior to presentation and she had more than 5 episodes of BRB per rectum (1st episode of LGI bleeding). Her last colonoscopy was in 2022 and it was normal as per the patient. Last dose of Eliquis was on 10/03/24. Patient was given Kcentra in the ER Bleeding slowed down during stay in the ER and last bowel movement was at 23:00 Pt was given Golytely prep overnight - finished at 3 am this am. LGI bleeding likely diverticular. Other possibilities include colonic AVMs. Large polyp or mass would be less likely given negative colon a year ago RECOMMENDATIONS: 1. Proceed with colonosccopy today COLONOSCOPY Findings: Terminal Ileum: Not evaluated Cecum: Normal Ascending Colon: Normal Transverse Colon: Patchy erythema in the distal transverse colon Descending Colon: Edema, erythema with friable and ulcerated mucosa from 20 to 55 cms Moderate diverticulosis Sigmoid Colon: Edema, erythema with friable and ulcerated mucosa from 20 to 55 cms - biopsies were obtained Severe diverticulosis with luminal narrowing Rectum: Normal Ano-rectum: Normal Colon preparation: Good after some irrigation. Rumsey Bowel Preparation Scale Right colon; 2 Transverse colon: 2 Left colon; 2 (0 = Unprepared colon segment with mucosa not seen due to solid stool that cannot be cleared. 1 = Portion of mucosa of the colon segment seen, but other areas of the colon segment not well seen due to staining, residual stool and/or opaque liquid. 2 = Minor amount of residual staining, small fragments of stool and/or opaque liquid, but mucosa of colon segment seen well. 3 = Entire mucosa of colon segment seen well with no residual staining, small fragments of stool or opaque liquid) Impression and Post Procedure Diagnosis: Colonoscopy Findings: No polyps were detected Edema, erythema with friable and ulcerated mucosa from 20 to 55 cms - biopsies were obtained Moderate to severe diverticulosis seen in the left colon LGI bleeding likey from left sided colitis due to ischemia. No blood seen in the colon during colonoscopy. Plan: 1. Start IV antibiotics tonight and switch to PO at discharge (7 days of antibiotic therapy) 2. Clear liquid diet tonight and advance diet as tolerated. 3. Repeat CBC in the am and pt can be discharged home in the am if CBC is stable without further bleeding. 4. Pt has a FU appointment on 12/04/24 with Vandana Nicholas NP 5. Discontinue screening colonoscopy due to advanced age with comorbidities Above findings were reviewed with the patient and relevant handouts were given and the discharge area. TODAY'S VISIT: Patient is here today for follow-up. Patient was admitted in the beginning of October this year with lower GI bleed. Patient was seen by Dr. Doss, colonoscopy was done and patient was found to have colitis, most likely that was the source of bleed. Antibiotics were given while hospitalized. Patient had normal H&H when hospitalized. Currently patient reports that she has been having trouble with acid reflux and bloating. Bloating no matter what she eats. Patient reports that she is moving her bowels without any issues. Patient denies melena, hematochezia, unintentional weight loss or ribbon like stools. Patient reports occasional dyspepsia without dysphagia or odynophagia. Currently she is taking pantoprazole. Patient reports that she took Nexium in the past and feels like that was better. Patient denies any symptoms at night time. Currently patient reports that she has been sick with body aches, cough. This has been going on in the past week or so. Patient sees Dr. Tapia in pulmonology and will stop by his office to make sooner appointment. COUNTS INCLUDE 234 BEDS AT THE [facility] Medical History Colitis Schatzki's ring Depression Hypersomnia Snoring Cognitive impairment History of CVA (cerebrovascular accident) Afib Acute CVA (cerebrovascular accident) IBS (irritable bowel syndrome) Abdominal hyperesthesia Dyspepsia Osteoarthritis of lumbar spine Scoliosis GERD (gastroesophageal reflux disease) HTN (hypertension) Surgical History Status post ablation of incompetent vein using laser (06/12/22) Hx of hysterectomy H/O oophorectomy H/O bilateral breast reduction surgery Family History Son HTN (hypertension) Father No problems noted. Mother No problems noted. Social History Household Members: None Housing: Apartment Are you a primary palliative care nurse to a significant other at home: No Do you presently have visiting nurse or other home services: No Alcohol intake: never Patient Tobacco Use Status: Never used Tobacco e-Cigarette/Vaping Use: Never Used Second Hand Smoke Exposure: No Advance Directives Date on File: 08/13/21 service: No Current occupational status: disabled Cognitive needs: No Hearing needs: No Vision needs: Yes (Glasses) Review of Systems Const Denies weight gain and Denies weight loss ENT Reports no additional complaints, Denies dysphagia and Denies odynophagia Card Reports no additional complaints Resp Reports no additional complaints and Reports cough GI Denies abdominal pain, Denies belching, Denies melena, Denies bloating, Denies change in bowel habits, Denies dysphagia, Denies excessive flatus, Denies dyspepsia, Denies heartburn, Denies diarrhea, Denies loose stools, Denies nausea, Denies odynophagia and Denies vomiting Reports no additional complaints Musc Reports no additional complaints Neuro Reports no additional complaints Psych Reports no additional complaints Endo Reports no additional complaints Physical Exam Vital Signs: Last Vital Signs Pulse 80 12/04/24 09:02 BP 146/70 H 12/04/24 09:02 Pulse Ox 96 12/04/24 09:02 Oxygen Delivery Method Room Air 12/04/24 09:02 BMI result Body Mass Index 25.7 Const General: healthy appearing, no acute distress and well developed Nutritional Appearance: well nourished Orientation/consciousness: patient oriented x3 Resp Effort & Inspection: normal respiratory effort, able to speak in complete sentences, no tracheal deviation and symmetric chest movement Auscultation: clear to auscultation bilaterally Cardio Rate: regular rate GI Inspection: Yes normal to inspection and No distended Palpation (GI): Soft to palpation, not firm, nontender and No hepatosplenomegaly present Auscultation: normal bowel sounds General: Yes no CVA tenderness Back/Spine/Pelvis Back: no CVA tenderness Skin General skin exam: elasticity normal, turgor normal and dry skin Neuro General: patient oriented x3 Psych Appearance: grossly normal Mental Status: mental status grossly normal Assessment & Plan Assessment & Plan (1) Lower gastrointestinal hemorrhage: Code(s): K92.2 - Gastrointestinal hemorrhage, unspecified Category: Medical (2) Colitis: Code(s): K52.9 - Noninfective gastroenteritis and colitis, unspecified Category: Medical (3) Elevated transaminase level: Code(s): R74.01 - Elevation of levels of liver transaminase levels Category: Medical (4) GERD (gastroesophageal reflux disease): Code(s): K21.9 - Gastro-esophageal reflux disease without esophagitis Category: Medical Qualifiers: Esophagitis presence: without esophagitis Qualified Code(s): K21.9 - Gastro-esophageal reflux disease without esophagitis Plan Will change PPI to Nexium. Patient was encouraged to avoid dietary triggers and late night snacking. Staying upright for minimum 3 hours after meals discussed with patient. Discussed with patient low FODMAP diet. Patient reports to be bloated frequently. List of food recommended as well as list of food to avoid given to patient. Patient will follow-up in 3 months, sooner on as needed basis. She is agreeable to this plan and verbalizes understanding of instructions. She was given the opportunity to ask questions and all questions answered. Thank you for allowing me to participate in her care Medications: New esomeprazole magnesium (Nexium) 40 mg PO DAILY 90 caps 5RF K21.9 - Gastro- esophageal reflux disease without esophagitis Discontinued pantoprazole Discontinued Reason: Doctor's Order 40 mg PO QAM 90 tabs 0RF K21.9 - Gastro-esophageal reflux disease without esophagitis Coding Level of Care Code Est Pt Level 4 (07196) Complex EM visit Add On G2211 Diagnoses Lower gastrointestinal hemorrhage K92.2 Colitis K52.9 Elevated transaminase level R74.01 Gastroesophageal reflux disease without esophagitis K21.9 Esophagitis presence: without esophagitis Time Spent (min) 40 Comment 25 minutes spent with patient and additional 15 minutes spent reviewing her records
--- OUTSIDE RECORDS SUMMARY | 2024-12-04 09:41 | XMS_ITS | Clinical Summary ---
Author Organization [facility] Address [address] [place] [address] Care Team Providers Care Fashion Designer Name Role Phone Unavailable Primary Care Provider [...]
--- OUTSIDE RECORDS SUMMARY | 2024-12-04 09:41 | XMS_ITS ---
Author Name Hannah Jain NP Address [address] [place] [address] Phone [phone] [facility] Care Team Providers Care Before And After School Daycare Worker Name Role Phone Hannah Jain Unavailable [phone] Unavailable Unavailable [phone] Unavailable Unavailable Unavailable Unavailable Unavailable [phone] Reason for Referral Not Available Allergies, adverse reactions, alerts Allergen Type Reaction Severity Status Onset Date Oxycodone Allergy to substance (disorder) Hives Unknown Active N/A History of medication use Medication Class Instructions Start Date End Date Lisinopril 40 mg Tab take 1 tablet by mo azh daily 2022-02-10 No Data Available Eliquis 5 [...] sciatica Active 08-07 N/A Unspecified atherosclerosis of [place] arteries of extremities, unspecified extremity Active 2022-08-07 [...] Active 2024-01-25 N/A Other problems related to [facility] and other health care Active 2023-12-11 N/A Incontinence Active 2024-01-25 N/A Major depressive disorder, recurrent, moderate Active 2024-02-02 N/A Encounters Encounters Type Facility Date of Service Diagnosis/Co mplaint New patient,40-59min; chronic exacerbation, 2 stable chronic or 1 acute illness add add modifier 95 for video (do not use for phone, instead use 57164-80) [facility]2022 Hypertensive heart disease w ith heart failureHeart failure, unspecifiedSacroiliitis, not elsewhere classifiedOther thrombophiliaUnspecified atrial fibrillationUnspecified asthma, uncomplicatedInsomnia, unspecifiedHyperlipidemia, unspecifiedUnspecified dementia without behavioral disturbanceOther seasonal allergic rhinitisUnsp athscl k[place] arteries of extremities, unsp extremityLumbago with sciatica, unspecified sideOther chronic painSecondary hyperaldosteronismChronic obstructive pulmonary disease, unspecified New patient,40-59min; chronic exacerbation, 2 stable chronic or 1 acute illness add add modifier 95 for video (do not use for phone, instead use 60470-38) [facility] New patient,40-59min; chronic exacerbation, 2 stable chronic or 1 acute illness add add modifier 95 for video (do not use for phone, instead use 05552-78) [facility] New patient,40-59min; chronic exacerbation, 2 stable chronic or 1 acute illness add add modifier 95 for video (do not use for phone, instead use 92190-04) [facility] New patient,40-59min; chronic exacerbation, 2 stable chronic or 1 acute illness add add modifier 95 for video (do not use for phone, instead use 61804-48) [facility] New patient,40-59min; chronic exacerbation, 2 stable chronic or 1 acute illness add add modifier 95 for video (do not use for phone, instead use 69600-39) [facility] New patient,40-59min; chronic exacerbation, 2 stable chronic or 1 acute illness add add modifier 95 for video (do not use for phone, instead use 37880-36) [facility] 08[place] [facility] [place]2022 Heart failure, unspecifiedUnspecified asthma, uncomplicatedHyperlipidemia, unspecifiedChronic obstructive pulmonary disease, unspecifiedHypertensive heart disease with heart failure Estab. patient 30-39min; chronic exacerbation, 2 stable chronic or 1 acute illness add add modifier 95 for video, (do not use for phone, instead use 18122-20) [facility]2022 Heart failure, unspecifiedSacroiliitis, not elsewhere classifiedOther thrombophiliaUnspecified atrial fibrillationUnspecified asthma, uncomplicatedHyp hrt & chr kdny dis w hrt fail and stg 1-4/unsp chr kdnyInsomnia, unspecifiedHyperlipidemia, unspecifiedUnspecified dementia without behavioral disturbanceOther seasonal allergic rhinitisUnsp athscl klaw[place] arteries of extremities, unsp extremityLumbago with sciatica, unspecified sideOther chronic painSecondary hyperaldosteronismChronic obstructive pulmonary disease, unspecifiedGastro-esophageal reflux disease without esophagitisChronic kidney disease, stage 3aInterstitial pulmonary disease, unspecifiedUnspecified urinary incontinenceOther forms of acute ischemic heart disease Estab. patient 30-39min; chronic exacerbation, 2 stable chronic or 1 acute illness add add modifier 95 for video, (do not use for phone, instead use 77917-82) [facility] Estab. patient 30-39min; chronic exacerbation, 2 stable chronic or 1 acute illness add add modifier 95 for video, (do not use for phone, instead use 51007-51) [facility] Estab. patient 30-39min; chronic exacerbation, 2 stable chronic or 1 acute illness add add modifier 95 for video, (do not use for phone, instead use 82607-93) [facility] Estab. patient 30-39min; chronic exacerbation, 2 stable chronic or 1 acute illness add add modifier 95 for video, (do not use for phone, instead use 71926-39) [facility]20[place] Estab. patient 30-39min; chronic exacerbation, 2 stable chronic or 1 acute illness add add modifier 95 for video, (do not use for phone, instead use 27531-71) [facility] ([place] 10[place]22/20[place] Estab. patient 30-39min; chronic exacerbation, 2 stable chronic or 1 acute illness add add modifier 95 for video, (do not use for phone, instead use 99681-09) [facility] ([place] 10/22/2022 No Data Available [facility] 12[place]/2022 Chronic obstructive pulmonar y disease, unspecifiedHypertensive heart disease with heart failureHeart failure, unspecified No Data Available [facility] ([place] 01[place]19[place]2023 Heart failure, unspecifiedSacroiliitis, not elsewhere classifiedOther thrombophiliaUnspecified atrial fibrillationUnspecified asthma, uncomplicatedHyp hrt & chr kdny dis w hrt fail and stg 1-4/unsp chr kdnyInsomnia, unspecifiedHyperlipidemia, unspecifiedUnspecified dementia without behavioral disturbanceOther seasonal allergic rhinitisUnsp athscl k[place] arteries of extremities, unsp extremityLumbago with sciatica, unspecified sideOther chronic painSecondary hyperaldosteronismChronic obstructive pulmonary disease, unspecifiedGastro-esophageal reflux disease without esophagitisChronic kidney disease, stage 3aInterstitial pulmonary disease, unspecifiedUnspecified urinary incontinenceOther forms of acute ischemic heart disease No Data Available [facility]19[place]2023 No Data Available [facility] No Data Available [facility]20[place] No Data Available [facility]20[place] No Data Available [facility]20[place] No Data Available [facility] 02[place]18[place]2023 Hyp hrt & chr kdny dis w hrt fail and stg 1-4/unsp chr kdnyHeart failure, unspecifiedChronic kidney disease, stage 3aSecondary hyperaldosteronismSacroiliitis, not elsewhere classifiedOther thrombophiliaUnspecified atrial fibrillationUnspecified asthma, uncomplicatedInsomnia, unspecifiedHyperlipidemia, unspecifiedUnspecified dementia without behavioral disturbanceOther seasonal allergic rhinitisUnsp athscl k[place] arteries of extremities, unsp extremityLumbago with sciatica, unspecified sideOther chronic painChronic obstructive pulmonary disease, unspecifiedGastro-esophageal reflux disease without esophagitisInterstitial pulmonary disease, unspecifiedUnspecified urinary incontinenceOther forms of acute ischemic heart disease No Data Available [facility] 02[place]18[place]2023 No Data Available [facility] 02/18[place]2023 No Data Available [facility] 02[place]18[place]2023 No Data Available [facility] 02[place]20[place] No Data Available [facility]2023 No Data Available [facility] 03[place]/2023 Hyp hrt & chr kdny dis w hrt fail and stg 1-4/unsp chr kdnyChronic kidney disease, stage 3aHeart failure, unspecifiedSacroiliitis, not elsewhere classifiedOther thrombophiliaUnspecified atrial fibrillationUnspecified asthma, uncomplicatedInsomnia, unspecifiedHyperlipidemia, unspecifiedUnspecified dementia without behavioral disturbanceOther seasonal allergic rhinitisUnsp athscl [place] arteries of extremities, bilateral legsLumbago with sciatica, unspecified sideOther chronic painSecondary hyperaldosteronismChronic obstructive pulmonary disease, unspecifiedGastro-esophageal reflux disease without esophagitisInterstitial pulmonary disease, unspecifiedUnspecified urinary incontinenceAcute ischemic heart disease, unspecified No Data Available [facility] 03[place]2023 No Data Available [facility] 03[place]2023 No Data Available [facility] [place] 03/25[place]2023 No Data Available [facility] [place] 03[place]25[place]2023 No Data Available [facility] [place] 03[place]25/2023 No Data Available [facility] 05[place]/2023 Heart failure, unspecifiedSacroiliitis, not elsewhere classifiedOther thrombophiliaUnspecified atrial fibrillationUnspecified asthma, uncomplicated No Data Available [facility] 05[place]2023 No Data Available [facility] 05[place]2023 No Data Available [facility]2023 No Data Available [facility] 05[place]2023 No Data Available [facility]2023 No Data Available [facility]2023 No Data Available [facility] 10[place]2023 Heart failure, unspecifiedSacroiliitis, not elsewhere classifiedOther thrombophiliaUnspecified atrial fibrillationUnspecified asthma, uncomplicatedHyp hrt & chr kdny dis w hrt fail and stg 1-4/unsp chr kdnyInsomnia, unspecifiedHyperlipidemia, unspecifiedUnspecified dementia without behavioral disturbanceOther seasonal allergic rhinitisUnsp athscl k[place] arteries of extremities, unsp extremityLumbago with sciatica, unspecified sideOther chronic painSecondary hyperaldosteronismChronic obstructive pulmonary disease, unspecifiedGastro-esophageal reflux disease without esophagitisChronic kidney disease, stage 3aInterstitial pulmonary disease, unspecifiedUnspecified urinary incontinenceOther forms of acute ischemic heart disease No Data Available [facility] 10[place]2023 No Data Available [facility]20[place] No Data Available [facility]20[place] No Data Available [facility]20[place] No Data Available [facility] No Data Available [facility]20[place] Estab. patient 30-39min; chronic exacerbation, 2 stable chronic or 1 acute illness add add modifier 95 for video, (do not use for phone, instead use 97761-42) [facility]2024 Heart failure, unspecifiedSacroiliitis, not elsewhere classifiedOther thrombophiliaUnspecified atrial fibrillationUnspecified asthma, uncomplicatedEssential (primary) hypertensionInsomnia, unspecifiedHyperlipidemia, unspecifiedUnspecified dementia without behavioral disturbanceOther seasonal allergic rhinitisUnsp athscl [place] arteries of extremities, unsp extremityLumbago with sciatica, [...] (do not use for phone, instead use 94577-44) [facility] Estab. patient 30-39min; chronic exacerbation, 2 stable chronic or 1 acute illness add add modifier 95 for video, (do not use for phone, instead use 25634-77) [facility]20[place] Estab. patient 30-39min; chronic exacerbation, 2 stable chronic or 1 acute illness add add modifier 95 for video, (do not use for phone, instead use 95117-89) [facility]20[place] Estab. patient 30-39min; chronic exacerbation, 2 stable chronic or 1 acute illness add add modifier 95 for video, (do not use for phone, instead use 74697-11) [facility]20[place] Estab. patient 30-39min; chronic exacerbation, 2 stable chronic or 1 acute illness add add modifier 95 for video, (do not use for phone, instead use 93537-42) [facility]20[place] Estab. patient 30-39min; chronic exacerbation, 2 stable chronic or 1 acute illness add add modifier 95 for video, (do not use for phone, instead use 81024-89) [facility]20[place] Estab. patient 30-39min; chronic exacerbation, 2 stable chronic or 1 acute illness add add modifier 95 for video, (do not use for phone, instead use 20675-73) [facility] 01[place]20[place] Estab. patient 30-39min; chronic exacerbation, 2 stable chronic or 1 acute illness add add modifier 95 for video, (do not use for phone, instead use 08130-98) [facility] 01[place]/20[place] Estab. patient 30-39min; chronic exacerbation, 2 stable chronic or 1 acute illness add add modifier 95 for video, (do not use for phone, instead use 92461-90) [facility] 01[place]2024 Vital Signs Date of [...] tive Time Current Smoking Status Never smoker 3 Sex Female History of Procedures Procedures Service Procedure code Service date Servicing provider Phone# New patient,40-59min; chronic exacerbation, 2 stable chronic or 1 acute illness add add modifier 95 for video (do not use for phone, instead use 76753-30) [id number] 2022-08-07 No Data Available No Data Availa [...] le No Data Available No Data Available [id number] 2022-09-16 No Data Available No Data Available Estab. patient 30-39min; chronic exacerbation, 2 stable chronic or 1 acute illness add add modifier 95 for video, (do not use for phone, instead use 57133-35) [id number] 2022-10-22 No Data Available No Data Availa [...] No Data Miguelina ilable No Data Available [id number] 2022-12-09 No Data Available No Data Available No Data Available [id number] 2023-01-19 No Data Available No Data Available [...] No Data Availa ble No Data Available [id number] 2023-02-18 No Data Available No Data Available [...] Available No Data Available No Data Available [id number] 2023-03-25 No Data Available No Data Available [...] le No Data Available No Data Available [id number] 2023-05-11 No Data Available No Data Available [...] Available No Data Available No Data Available [id number] 2023-10-30 No Data Available No Data Available [...] (do not use for phone, instead use 35069-32) [id number] 2024-01-25 No Data Available No Data Availa [...] to atrial fibrillationAsthmaHypertensionInsomniaHyperlipidemiaDementiaSeasonal allergic rhinitisUnspecified atherosclerosis of [place] arteries of extremities, unspecified extremityChronic low back pain with sciaticaSecondary hyperaldosteronismChronic obstructive pulmonary disease, unspecified 2022-09-16 10:48:14 Heart failure, unspecified [I50.9]Asthma [J45.909]Hypertension [I10]Hyperlipidemia [E78.5]Chronic obstructive pulmonary disease, unspecified [J44.9] 2022-10-22 09:11:25 Heart failure, unspecifiedSacroiliitis, not elsewhere classifiedHypercoagulability due to atrial fibrillationAsthmaHypertensionInsomniaHyperlipidemiaDementiaSeasonal allergic rhinitisUnspecified atherosclerosis of [place] arteries of extremities, unspecified extremityChronic low back pain with sciaticaSecondary hyperaldosteronismChronic obstructive pulmonary disease, unspecifiedGERD (gastroesophageal reflux disease)Chronic kidney disease, stage 3aInterstitial pulmonary disease, unspecifiedBladder incontinenceOther forms of acute ischemic heart disease 2022-12-09 09:22:26 Chronic obstructive pulmonary disease, u nspecified [J44.9]Hypertension [I10]Heart failure, unspecified [I50.9] 2023-01-19 12:12:29 Heart failure, unspecifiedSacroiliitis, not elsewhere classifiedHypercoagulability due to atrial fibrillationAsthmaHypertensionInsomniaHyperlipidemiaDementiaSeasonal allergic rhinitisUnspecified atherosclerosis of [place] arteries of extremities, unspecified extremityChronic low back [...] ongoingSeasonal allergic rhinitis - ongoingUnspecified atherosclerosis of [place] arteries of extremities, unspecified extremity - ongoingChronic [...] ongoingSeasonal allergic rhinitis - ongoingUnspecified atherosclerosis of [place] arteries of extremities, unspecified extremity - ongoingChronic [...] to atrial fibrillationAsthmaHypertensionInsomniaHyperlipidemiaDementiaSeasonal allergic rhinitisUnspecified atherosclerosis of [place] arteries of extremities, unspecified extremityChronic low back [...] to atrial fibrillationAsthmaHypertensionInsomniaHyperlipidemiaDementiaSeasonal allergic rhinitisUnspecified atherosclerosis of [place] arteries of extremities, unspecified extremityChronic low back [...] education needs that may arise.On FurosemideMetoprololFollows a Director Of Revenue Cycle Management, will monitor edema and weight.On TylenolOn EliquisOn [...] failure, unspe cified [I50.9]> On FurosemideMetoprololFollows a Director Of Revenue Cycle Management, will monitor edema and weight.Asthma [J45.909]> On [...] education needs that may arise.On FurosemideMetoprololFollows a Director Of Revenue Cycle Management, will monitor edema and weight.10/22/22: Continue current [...] 11/26.Heart failure, unspecified [I50.9]> On FurosemideMetoprololFollows a Director Of Revenue Cycle Management, will monitor edema and weight.10/22/22: Continue current [...] needs that may arise 26/04.On FurosemideMetoprololFollows a Director Of Revenue Cycle Management, will monitor edema and weight.10/22/22: Continue current treatment plan as directed. Continue current treatment plan as directed. F/u with Cardiology on 02/23.On TylenolContinue current treatment plan as directed.On EliquisFollows Cardiology Continue current treatment plan as directed.On BreoFluticasoneAlbuterolFollows Undercutter Operator Continue current treatment plan as directed.On AmlodipineLisinoprilMetoprololEncouraged [...] needs that may arise 26/04.On FurosemideMetoprololFollows a Director Of Revenue Cycle Management, will monitor edema and weight.10/22/22: Continue current treatment plan as directed. Continue current treatment plan as directed. F/u with Cardiology on 02/23.On TylenolContinue current treatment plan as directed.On EliquisFollows Cardiology Continue current treatment plan as directed.On BreoFluticasoneAlbuterolFollows Undercutter Operator Continue current treatment plan as directed.On AmlodipineLisinoprilMetoprololEncouraged [...] modifier 95)Continue to see PCP. [facility] or disease education needs that may arise 26/04.On FurosemideMetoprololFollows a Director Of Revenue Cycle Management, will monitor edema and weight.10/22/22: Continue current treatment plan as directed. Continue current treatment plan as directed. F/u with Cardiology q 6 monthOn TylenolContinue current treatment plan as directed.On EliquisFollows Cardiology Continue current treatment plan as directed.On BreoFluticasoneAlbuterolFollows Undercutter Operator Continue current treatment plan as directed.On AmlodipineLisinoprilMetoprololEncouraged [...] needs that may arise 26/04.On FurosemideMetoprololFollows a Director Of Revenue Cycle Management, will monitor edema and weight. Continue current [...] needs that may arise 26/04.On FurosemideMetoprololFollows a Director Of Revenue Cycle Management, will monitor edema and weight. Continue current treatment plan as directed. F/u with Cardiology q 6 monthOn TylenolContinue current treatment plan as directed.On EliquisFollows Cardiology Continue current treatment plan as directed.On BreoFluticasoneAlbuterolFollows Undercutter Operator Continue current treatment plan as directed.On AmlodipineLisinoprilMetoprololEncouraged [...] Documented (1125F)Continue to see PCP. Follow-up with [facility] as needed for any acute or disease education needs that may arise.<Add contingency plans here>Monthly follow up calls with pt CONTINGENCY PLAN Why was the member in the hospital or ER most recently? Why are they most likely to go back? Please call [facility] if you have a change in condition, Blood pressure > 170/90 Fall, any unusual symptoms or have any medical questions!On FurosemideMetoprololFollows a Director Of Revenue Cycle Management, will monitor edema and weight. Continue current treatment plan as directed. F/u with Cardiology q 6 monthOn TylenolContinue current treatment plan as directed.On EliquisFollows Cardiology Continue current treatment plan as directed.On BreoFluticasoneAlbuterolFollows Undercutter Operator Continue current treatment plan as directed.On AmlodipineLisinoprilMetoprololEncouraged [...] Follows PulmonologyNeeds Disposable bed padsOn MetoprololFollows CardiologyReceives infrastructure engineer hourswalk with walker / 1 assistSkin care [...] to the ER.4. Discussed how to contact [facility] via phone or tablet. 2023-02-18 1. Remember to keep all appointments with your PCP.2. Take all medication on time and try to eat healthy3. Call if you have questions or concerns before you go to the ER.4. Discussed how to contact [facility] via phone or tablet. 2023-03-25 1. Take all medicati on on time and try to eat healthy2. Call if you have questions or concerns before you go to the ER.3. Remember to keep all appointments with your PCP.4. Discussed how to contact [facility] via phone or tablet. Health Concerns Date Concern 2024-01-25 Visit completed usin g audio/video. Patient/Guardian agreed to visit via telehealth. Today, patient has chief complaint of: follow up care and comprehensive review.Reviewed Allergies, Medications, Active Medical conditions, past medical/surgical history, Social history. 2024-01-25 <add details of [employer] Care Planning conversation using .acp FastKey> Advance Care Plan and Serious Illness ConversationDate of Conversation: 01/25/2024Life Limiting Diagnosis: Diagnosis: noneCurrently on Hospice NoCode Status: YES CPR: Attempt ResuscitationGoals of Care: Curative: Attempt to sustain life by all medically effective meansNutrition goals: No decision made about nutrition today; not discussedDo you have a Durable Power of Petroleum Geologist for Healthcare, or Healthcare Proxy Or Guardianship? Yes, POAIf so, Who? john Henry is hcpDo you have a written Advance Directive? Has no formal documentationOther details of discussion: (Who was present, patients description of wishes/goals)Today's plan: Advised patient to discuss wishes with [id number] : AD or surrogate was documented in the medical record. 2024-01-25 Most recent hospital stay(s) or ER visit(s) and precipitating factors: Urgent care 01/20 due to respiratory symptoms 2024-01-25 Open HEDIS Measure jl miranda: Reviewed
--- OUTSIDE RECORDS SUMMARY | 2024-12-04 09:41 | XMS_ITS | Clinical Summary ---
Author Organization [employer] Address [address] [facility] [address] [place] [address] Care Team Providers Care Cobol Engineer Name Role Phone Unavailable Primary Care Provider [...] LAB SYSTEM LDL Cholesterol 73 mg/dL (calc) [facility] Comment: Reference range: <100 ?? [...] ?? Jamari ROCHA et al. ANIL. 2013;310(19): 4653-6130 ?? (http://education.Retrieve.com/faq/JMF440) Non-HDL Cholesterol 86 <130 mg/dL (calc) [facility] Comment: For patients with diabetes plus 1 major ASCVD risk ?? factor, treating to a non-HDL-C goal of <100 mg/dL ?? (LDL-C of <70 mg/dL) is considered a therapeutic ?? option. Triglycerides 51 <150 mg/dL [facility] 03/25/2021 1:25 PM EDT us Yeny Calderon MD LAB BLOOD ORDERABLES Fin al Result [facility] [address] from Last 3 Months or Most Recently Relevant to Health Maintenance Insurance [facility] DUAL COMPLETE
== END 2024-12-04 09:54 | disposition home or self-care (01) ==
PROVIDERS: PCP Internal Medicine; Visit Provider Nurse Practitioner Family
DX: K92.2 Gastrointestinal hemorrhage, unspecified (principal); K52.9 Noninfective gastroenteritis and colitis, unspecified; R74.01 Elevation of levels of liver transaminase levels; K21.9 Gastro-esophageal reflux disease without esophagitis
CPT/HCPCS: 99214; G2211

== ENCOUNTER → 2024-12-04 09:01 | Outpatient (BNVA) | payer OTHER, SELFPAY | PROVIDERS: PCP Internal Medicine; Visit Provider Nurse Practitioner Family | DX: K21.9 Gastro-esophageal reflux disease without esophagitis (principal); K92.2 Gastrointestinal hemorrhage, unspecified; K52.9 Noninfective gastroenteritis and colitis, unspecified; R74.01 Elevation of levels of liver transaminase levels | CPT/HCPCS: 99212 ==

== ENCOUNTER 2024-12-21 00:48 | Inpatient (IN) | payer OTHER, SELFPAY ==
[2024-12-21] VITALS (13 sets, daily range): BP systolic 123–165; BP diastolic 57–81; PULSE 60–104; RESP 12–20; TEMP 36.1–36.9; O2SAT 97–98; BMI 28.8; BMI 28.9
--- NOTE | 2024-12-21 | ECG_ITS ---
Test Reason : chest pain Blood Pressure : */* mmHG Vent. Rate : 104 BPM Atrial Rate : 104 BPM P-R Int : 198 ms QRS Dur : 82 ms QT Int : 372 ms P-R-T Axes : 41 19 22 degrees QTcB Int : 489 ms Sinus tachycardia Possible Left atrial enlargement Anterior infarct , age undetermined Abnormal ECG When compared with ECG of 05-Oct-2024 08:08, Vent. rate has increased by 36 bpm Referred By: Generic ED Physician Electronically Signed By: Wolf Apple
--- NOTE | 2024-12-21 | ECG_ITS ---
Test Reason : prolonged ekg Blood Pressure : */* mmHG Vent. Rate : 62 BPM Atrial Rate : 62 BPM P-R Int : 206 ms QRS Dur : 88 ms QT Int : 496 ms P-R-T Axes : 52 13 43 degrees QTcB Int : 503 ms Normal sinus rhythm Prolonged QT Abnormal ECG When compared with ECG of 21-Dec-2024 00:59, Vent. rate has decreased by 42 bpm Criteria for Anterior infarct are no longer Present Referred By: Shay Osullivan Electronically Signed By: Wolf Apple
--- NOTE | ~2024-12-21 | XR_ITS ---
CLINICAL HISTORY: Elevated troponin, CP 1 view chest x-ray Comparison: CR/SR - XR CHEST 2V - 01/16/24 14:52 EDT Findings: The lungs are clear. Heart size is stable. No acute fracture. IMPRESSION: 1. No acute findings. This document has been electronically signed by: Ileana Roberts MD on 12/21/2024 06:21:25
--- NOTE | 2024-12-21 01:08 | MHC.EDTECH ---
pt changed over into hospital gown, placed on potline monitor, and EKG performed for report of chest pain, VS taken relatively stable besides increased HR between 104-108, RN aware
[2024-12-21 01:26] LABS: MANUAL DIFF FLAG NO
[2024-12-21 01:27] LABS: Basophils Percent Auto 0.2 % (0-2); Eosinophils Absolute Auto 0.2 X10*3/uL (0.0-0.4); Hematocrit 36.1 % (37.0-47.0); Hemoglobin 12.2 g/dl (12.0-16.0); Imm Gran Abs Auto 0.02 X10*3/uL (0.00-0.03); Imm Gran Pct Auto 0.4 % (0.0-0.4); Lymphocytes Absolute Auto 1.3 X10*3/uL (1.2-4.9); Lymphocytes Percent Auto 23.2 % (20-40); Mean Corpuscular HGB Conc 33.8 g/dl (31.0-35.0); Mean Corpuscular Hemoglobin 29.8 pg (27.0-33.0); Mean Corpuscular Volume 88.3 fL (80.0-98.0); Mean Platelet Volume 10.8 fL (9.4-12.3); Monocytes Absolute Auto 0.5 X10*3/uL (0.1-1.2); Neutrophils Absolute Auto 3.7 x10*3/uL (2.0-8.3); Neutrophils Percent Auto 65.2 % (45-73); Platelet Count 205 X10*3/uL (160-400); Red Blood Count 4.09 X10*6/uL (4.20-5.50); Red Cell Distribution Width 12.8 % (11.0-16.0); White Blood Count 5.7 X10*3/uL (4.8-10.8)
--- NOTE | 2024-12-21 01:43 | ED_ITS ---
HPI - General Adult General Chief complaint: Arrhythmia/Palpitations Stated complaint: CP, Iv estab. given adenosine Time Seen by Provider: 12/21/24 01:29 Source: patient, EMS and child welfare caseworker Mode of arrival: EMS Limitations: no limitations History of Present Illness ED Provider: DR. Weber HPI narrative: 79-year-old female history of SVT, was feeling fine all day today when went to bed started to feel palpitation, chest tightness, shortness of breath called EMS initial EKG was SVT, patient received 6 mg of adenosine followed by 12 mg of adenosine then broke to normal sinus rhythm. Patient currently has no shortness of breath, no chest pain, no fever, no chills, no abdominal pain, no nausea, no vomiting. Patient had SVT in the past and she has been evaluated by commercial lines manager for it. Patient with history of CVA, CAD, paroxysmal AFib on Eliquis, GERD, HTN. Related Data Home Medications ?Medication ?Instructions ?Recorded ?Confirmed donepezil 10 mg tablet 10 mg PO DAILY 08/09/23 10/13/24 memantine 10 mg tablet mg PO BID 12/04/24 Previous Rx's ?Medication ?Instructions ?Recorded compress.stocking,knee,reg,med #2 ea 02/26/22 meclizine 25 mg tablet 25 mg PO BID PRN dizziness #30 tabs 04/10/22 Grab bar #2 ea 12/29/22 Shower Chair #1 ea 12/29/22 handheld showerhead #1 ea 12/29/22 incontinence pads #240 ea 12/29/22 toilet frame #1 ea 12/29/22 underpads (Bed Underpads) #100 ea 12/29/22 walker (Ultra-Light Rollator misc) #1 ea 12/29/22 apixaban 5 mg tablet (Eliquis) 5 mg PO BID #60 tabs 10/06/23 calcium 500 mg (as 1 tab PO BID 90 days #180 tabs 07/12/24 carbonate)-vitamin D3 10 mcg (400 unit) tablet (Calcium 500 With D) atorvastatin 40 mg tablet 40 mg PO BEDTIME #90 tabs 07/13/24 lisinopril 40 mg tablet 40 mg PO DAILY #90 tabs 07/23/24 metoprolol succinate 50 mg 50 mg PO BID #180 tabs 07/27/24 tablet,extended release 24 hr famotidine 40 mg tablet 40 mg PO BEDTIME #90 tabs 08/21/24 ipratropium 0.5 mg-albuterol 3 mg 3 ml inhalation DAILY 30 days #90 10/02/24 (2.5 mg base)/3 mL nebulization mL soln budesonide 0.5 mg/2 mL suspension 0.5 mg (2 mL) inhalation DAILY 30 10/24/24 for nebulization days #60 mL amoxicillin 875 mg-potassium 1 tab PO BID #20 tabs 11/29/24 clavulanate 125 mg tablet esomeprazole magnesium 40 mg 40 mg PO DAILY #90 caps 12/04/24 capsule,delayed release (Nexium) Allergies Allergy/AdvReac Type Severity Reaction Status Date / Time oxycodone [From Percocet] Allergy Intermediate Agitated Verified 12/21/24 00:58 morphine AdvReac Agitated Verified 12/21/24 00:58 Review of Systems 2 Review of Systems: All other systems are reviewed and are negative Constitutional: Reports as per HPI and Reports no additional constitutional complaints Eyes: Reports as per HPI and Reports no additional eye complaints Reports system reviewed and no additional complaints, except as documented Cardiovascular: Reports as per HPI and Reports no additional cardiovascular complaints Respiratory: Reports as per HPI and Reports no additional respiratory complaints Gastrointestinal: Reports as per HPI and Reports no additional gastrointestinal complaints Genitourinary: Reports no additional female genitourinary complaints Musculoskeletal: Reports no additional musculoskeletal complaints Skin/Breast: Reports system reviewed and no additional complaints, except as docu Psychiatric: Reports no additional psychiatric complaints Endocrine: Reports no additional endocrine complaints Hematologic/Lymphatic: Reports no additional hematologic/lymphatic complaints Allergic/Immunologic: Reports no additional allergic/immunologic complaints Reports system reviewed and no additional complaints, except as documented and Reports Abnormal speech present [facility] Past Medical History Medical History Colitis Schatzki's ring Depression Hypersomnia Snoring Cognitive impairment History of CVA (cerebrovascular accident) Afib Acute CVA (cerebrovascular accident) IBS (irritable bowel syndrome) Abdominal hyperesthesia Dyspepsia Osteoarthritis of lumbar spine Scoliosis GERD (gastroesophageal reflux disease) HTN (hypertension) Surgical History Status post ablation of incompetent vein using laser (06/12/22) Hx of hysterectomy H/O oophorectomy H/O bilateral breast reduction surgery Family History Family History Son HTN (hypertension) Father No problems noted. Mother No problems noted. Social History Social History Household Members: None Housing: Apartment Are you a primary primary care physician to a significant other at home: No Do you presently have visiting nurse or other home services: No Alcohol intake: never Patient Tobacco Use Status: Never used Tobacco Smoked in Last 30 Days: No e-Cigarette/Vaping Use: Never Used Second Hand Smoke Exposure: No Use of substances other than those prescribed or required for medical reasons: No Advance Directives: Yes Advance Directives on File: Yes Advance Directives Date on File: 08/13/21 Do you have a plan to hurt others: No Plan service: No Current occupational status: disabled Cognitive needs: No Hearing needs: No Vision needs: Yes (Glasses) Physical Exam ED Vital Signs: Vital Signs - 24 hr 12/21/24 01:07 12/21/24 03:25 12/21/24 04:31 Temperature 98.4 F 98.3 F Pulse Rate 104 H 90 84 Respiratory Rate 12 14 15 Blood Pressure 127/72 123/70 127/65 Pulse Oximetry 97 97 97 Oxygen Delivery Method Room Air Room Air Room Air BMI result Body Mass Index 29.4 Vital signs have been reviewed and appear to be correct. Blood pressure elevated. Heart rate normal. Respiratory rate normal. Temperature normal. Oxygen saturation normal. Appearance: Alert. Oriented X3. No acute distress. Head: Normal external exam. Normocephalic. Atraumatic. No Garrett signs noted. No raccoon eyes noted Eyes: PERRLA. EOMI. Conjunctiva and sclera normal. Eyelids normal. ENT: TM's Normal. Pharynx normal. Uvula midline. Moist mucous membranes. No trismus noted. No drooling noted. No muffled voice noted. Neck: Normal inspection. Neck supple. FROM. No adenopathy. Thyroid Normal. No meningeal signs. No neck mass noted. CVS: Normal heart rate and rhythm. Heart sound normal. No murmurs noted. Pulses normal throughout. Respiratory: No respiratory distress. Painless inspiration. Breath sounds normal. No wheezes/rales/rhonchi noted. Chest nontender. No accessory muscle usage noted or decreased air movement noted. Abdomen: Soft and nontender. Bowel sounds normal in all 4 quadrants. No distention noted. No organomegaly noted. No visible injury noted. Back: No CVA tenderness. Full range of motion noted. Skin: Skin warm and dry. Normal skin color. Normal skin turgor. No rashes/lesions/lacerations noted. Extremities: No lower extremity edema. Extremities exhibit normal range of motion. Extremities nontender. Neuro: Oriented X 3. Cranial nerve exam: II-XII are grossly intact No motor deficit. No sensory deficit. Reflexes normal. Course Reevaluation(s) Reevaluation #1: 79-year-old female history of SVT had an episode of SVT that was broken with adenosine by EMS, initially patient had chest pain currently patient is chest pain-free, was given aspirin, VSS currently case discussed with Dr. Apple recommended to hold Eliquis and start heparin will admit for further evaluation. Time: 05:31 Medical Decision Making Differential Diagnosis Differential Diagnoses: The differential diagnosis associated with the presentation includes (SVT, dysrhythmia, atrial fibrillation, ACS, electrolyte derangement, severe anemia, pneumonia, pneumothorax, pleural effusion.) Admission/Observation Consideration of admission/observation: Escalation of care including admission/observation considered Consult Healthcare Provider Management of the patient was discussed with: Hospitalist (Dr. Lopez) and Talent Sourcer (Dr. Apple) Lab Data MDM Lab Attestation statement: I reviewed the patient's lab results. 12/21/24 01:22 12/21/24 01:22 Labs: Lab Results 12/21/24 12/21/24 Range/Units 01:22 04:40 WBC 5.7 (4.8-10.8) X10*3/uL RBC 4.09 L (4.20-5.50) X10*6/uL Hgb 12.2 (12.0-16.0) g/dl Hct 36.1 L (37.0-47.0) % MCV 88.3 (80.0-98.0) fL MCH 29.8 (27.0-33.0) pg MCHC 33.8 (31.0-35.0) g/dl RDW 12.8 (11.0-16.0) % Plt Count 205 (160-400) X10*3/uL MPV 10.8 (9.4-12.3) fL Immature Gran % (Auto) 0.4 (0.0-0.4) % Neut % (Auto) 65.2 (45-73) % Lymph % (Auto) 23.2 (20-40) % [place] % (Auto) 8.0 (2-11) % Eos % (Auto) 3.0 (0-4) % Baso % (Auto) 0.2 (0-2) % Lymph # (Auto) 1.3 (1.2-4.9) X10*3/uL [place] # (Auto) 0.5 (0.1-1.2) X10*3/uL Eos # (Auto) 0.2 (0.0-0.4) X10*3/uL Baso # (Auto) 0.0 (0.0-0.2) X10*3/uL Abs Immat Gran (auto) 0.02 (0.00-0.03) X10*3/uL Absolute Neuts (auto) 3.7 (2.0-8.3) x10*3/uL Absolute Nucleated RBC 0.000 (0.0-0.012) X10*3/uL Nucleated RBC % (auto) 0.0 (0.0-0.2) /100WBC PT 12.0 (10.9-12.4) SEC INR 1.0 (0.9-1.1) Sodium 143 (135-145) mmol/L Potassium 3.4 (3.3-5.1) mmol/L Chloride 109 H (96-108) mmol/L Carbon Dioxide 26 (22-29) mmol/L Anion Gap 11 L (12-20) BUN 26 H (9-16) mg/dL Creatinine 0.98 (0.5-1.4) mg/dL Estim Creat Clear Calc 46.7 Estimated GFR 55 Random Glucose 91 (60-115) mg/dL Calcium 8.9 (8.4-10.2) mg/dL Magnesium 1.7 (1.6-2.6) mg/dL Total Bilirubin 0.2 (0.0-1.0) mg/dL AST 63 H (5-31) U/L ALT 46 H (0-31) U/L Alkaline Phosphatase 73 (39-117) U/L Troponin I High Sens 30.5 H D 472.7 H* D (<3.5-17.0) ng/L Total Protein 7.0 (6.5-8.0) g/dL Albumin 3.7 (3.5-5.0) g/dL Lipase 29 (8-78) U/L TSH 3.80 (0.32-4.0) uIU/mL Independent Interpretation I performed an independent interpretation of an: EKG and Plain X-Ray Radiology Impression Discussion of test interpretation with radiology: I have reviewed the radiologist's reading. Discharge Plan Discharge Clinical Impression: SVT (supraventricular tachycardia), Elevated troponin Patient Disposition: Admitted As Inpatient Print Language: Maori
[2024-12-21 01:51] LABS: Troponin-I High Sensitivity 30.5 ng/L (<3.5-17.0)
[2024-12-21 02:01] LABS: Alanine Aminotransferase 46 U/L (0-31); Albumin Level 3.7 g/dL (3.5-5.0); Anion Gap 11 (12-20); Aspartate Amino Transferase 63 U/L (5-31); Bilirubin Total 0.2 mg/dL (0.0-1.0); Blood Urea Nitrogen 26 mg/dL (9-16); Calcium 8.9 mg/dL (8.4-10.2); Carbon Dioxide 26 mmol/L (22-29); Chloride 109 mmol/L (96-108); Creatinine Clr Calc Pharmacy 46.7; Estimated Glomerular Filt Rate 55; Glucose Random 91 mg/dL (60-115); Lipase 29 U/L (8-78); Magnesium 1.7 mg/dL (1.6-2.6); Potassium 3.4 mmol/L (3.3-5.1); Sodium 143 mmol/L (135-145)
[2024-12-21 02:18] LABS: Alkaline Phosphatase 73 U/L (39-117)
--- NOTE | 2024-12-21 03:27 | PC.NURSE ---
pt ambulated to and from bathroom with a steady gait, back in bed, resting comfortably on lunchroom monitor, denies any acute pain or distress, HR normal sinus rhythm. call cruz within reach. warm blanket given pending repeat trop @6170
[2024-12-21 05:09] LABS: Troponin-I High Sensitivity 472.7 ng/L (<3.5-17.0)
[2024-12-21] MEDS: Heparin Sodium,Porcine 5,000 UNIT/ML VIAL 4000 UNIT IVPUSH (05:57)
[2024-12-21] MEDS: Aspirin 81 MG TAB.CHEW PO (05:57)
[2024-12-21 06:25] LABS: Hematocrit 35.5 % (37.0-47.0); Mean Corpuscular HGB Conc 33.8 g/dl (31.0-35.0); Mean Corpuscular Hemoglobin 29.9 pg (27.0-33.0); Mean Corpuscular Volume 88.3 fL (80.0-98.0); Mean Platelet Volume 11.1 fL (9.4-12.3); Platelet Count 194 X10*3/uL (160-400); Red Blood Count 4.02 X10*6/uL (4.20-5.50); Red Cell Distribution Width 12.7 % (11.0-16.0)
[2024-12-21 06:38] LABS: INTERNATIONAL NORM RATIO 1.1 (0.9-1.1); Prothrombin Time 12.3 SEC (10.9-12.4)
[2024-12-21 06:53] LABS: PTT Heparin Drip 196.4 SEC (53-77.9)
--- NOTE | 2024-12-21 07:00 | CA_ITS ---
Transthoracic Echocardiogram Patient (Last, First, Middle): Becca Maldonado, Gender: Female Date of : 1945 Age: 79 Procedure Date: 12/21/2024 Procedure Type: Transthoracic Echocardiogram Location: ER Height: 160.02 cm Weight: 73.48 kg BSA: 1.77 m2 Heart Rate: bpm BP: 144 / 64 mmHg Rag Production Worker: ASIF Referring MD: Reggie Weber MD Symptoms: Elevated troponin Study Quality: Adequate Conclusions: - Normal left ventricular size, thickness, systolic function, and wall motion. The visually estimated ejection fraction is between 60-65%. - E/E prime ratio is between 8 and 15 consistent with indeterminate filling pressures. - Normal right ventricular cavity size and systolic function. Findings Left Ventricle Normal left ventricular size, thickness, systolic function, and wall motion. The visually estimated ejection fraction is between 60-65%. Abnormal diastolic function is noted. Spectral Doppler is indicative of an impaired relaxation filling pattern. E/E prime ratio is between 8 and 15 consistent with indeterminate filling pressures. Right Ventricle Normal right ventricular cavity size and systolic function. Atria The left atrium is normal in size. The right atrium is normal in size. Aortic Valve The aortic valve was not well visualized. There is no aortic valve stenosis. There is trace (trivial) aortic valve regurgitation. Mitral Valve The mitral valve appears normal. There is trace mitral valve regurgitation. There is no mitral valve stenosis. Pulmonic Valve The pulmonic valve is likely normal. There is no pulmonic valve regurgitation. Tricuspid Valve Normal tricuspid valve structure. There is no tricuspid valve regurgitation. Normal right atrial pressure. There is no evidence of pulmonary hypertension. Great Vessels All visible segments of the aorta are normal in size. The visualized portions of the pulmonary artery and branches are normal. Venous The inferior vena cava is normal in size and collapses greater than 50% with inspiration. Pericardium/Pleural There is no evidence of pericardial effusion. Prior Study Comparison No significant change compared to prior study dated: 08/17/2023. Measurements 2D Linear Measurements IVSd: 1.06 0.6-0.9/0.6-1.0 cm LVIDd: 3.76 3.9-5.3/4.2-5.9 cm LVIDd Index: 2.12 2.4-3.2/2.2-3.1 cm/m2 LVIDs: 2.73 2.0-3.6 cm LVPWd: 0.82 0.7-1.1 cm LA Diam: 2.30 2.7-3.8/3.0-4.0 cm LAIDs Index: 1.30 1.5-2.3 cm/m2 LV Mass: 131.60 67-162/88-224 g LV Mass Index: 74.35 43-95/49-115 g/m2 LVOT Diam: 2.10 3.0+(-)1.3 cm 2D Systolic Function EF 4C: 61.20 >55% EF 2C: 65.60 >55% EF BiP: 63.90 >55% Mitral Valve MV Pk E: 0.72 MV PK A: 0.93 MV Decel Time: 208.00 E/A: 0.80 E'Lateral: 6.96 E'Medial: 5.55 E/E' Med: 13.00 E/E' Lat: 10.40 PHT: 61.00 MVA PHT: 3.61 Decel Dare: 3.49 Aortic Valve AoV Pk Jagjit: 0.91 AoV Mn Jagjit: 0.69 AoV VTI: 0.22 AoV Pk Grad: 3.00 Aov Mn Grad: 2.00 JANE Cont.VTI: 2.23 LVOT LVOT Pk Jagjit: 0.54 LVOT Mn Jagjit: 0.42 LVOT VTI: 0.14 LVOT Pk Grad: 1.00 LVOT Mn Grad: 1.00 LVOT Diam: 2.10 LVOT Area: 3.46 Diastolic Function MV Pk E: 0.72 MV Pk A: 0.93 E/A: 0.80 E'Medial: 5.55 E/E' Med: 13.00 E' Laterial: 6.96 E/E' Lat: 10.40 Right Ventricle TAPSE (mm): 22.60 TVS' Jagjit: 10.00 Tricuspid Valve TR Pk Jagjit: 1.94 TR Pk Grad: 15.00 RA Press: 3.00 RVSP: 18.00 Great Vessels Aorta Sinus of Valsalva: 3.76 2.0-3.[address] [place]: 2.74 1.7-3.4 cm Ao Asc: 3.70 2.1-3.4 cm Updated in Other Vendor System with Status of Final Wolf Apple MD electronically signed on 12/21/2024 12:49:31 PM with status of Final
--- NOTE | 2024-12-21 07:01 | PC.NURSE ---
Md mckeon aware of ptt result, verbal order to redraw PTT in 1 hr before starting drip
--- NOTE | 2024-12-21 07:06 | PC.NURSE ---
Per previous RN/provider and pharmacy, redraw PTT HD, do not start heparin at this time
[2024-12-21 07:32] LABS: PTT Heparin Drip 103.3 SEC (53-77.9)
--- NOTE | 2024-12-21 07:55 | PC.NURSE ---
This RN talked with Doctor Mary about this patient as they are a pending admit, pt PTT HD was elevated this morning prior to redraw, redraw continues to be a little elevated, pharmacy wanting provider guidance on starting drip. At this time he requested drip to be held on getting started until Dr. Osullivan comes into the facility this morning to see and admit patient. Primary RN aware of plan, pharmacy also aware.
--- NOTE | 2024-12-21 07:58 | PHA.MEDREC ---
Pharmacy Consult ? Medication Reconciliation Pharmacy has completed the medication reconciliation.Med rec complete, spoke to patients son who stated he did not know anything about his mom's medication. Spoke to patient with help of ranger aide, patient self reported that she has dementia and forgets things and does not remember all of her medication names. We went through her recent medication list and she recognized most as things she was still taking. Per recent discharge notes and patient she should still be on eliquis and donepezil, however these meds have not been filled at her pharmacy in a long time. Will let admitting MD know about this.
--- NOTE | 2024-12-21 08:12 | PC.NURSE ---
Per ED provider, redraw another aPTT HD 1 hour from last one
--- NOTE | 2024-12-21 08:36 | PM.IMHP ---
History of Present Illness Date of Service: 12/21/24 Chief Complaint: palpiatations/chest pain This is a 79-year-old female with a past medical history of hypertension, CVA, paroxysmal AFib on Eliquis, CAD, prior lower GI bleed due to diverticulosis, cognitive impairment who presents [place] [facility] with complaints of palpitations and chest pressure. The history is taken with the help of salesforce administrator services. The patient reports that she was in her usual state of health on the day prior to hospitalization. On the evening prior to hospitalization, while the patient was watching TV, she had a sudden feeling of palpitations. She reports that she felt as if her heart was going to jump out of her mouth. Subsequent to this, the patient reports chest pressure. She reports that both of these have since resolved. Reports prior such episodes in the past. However, she is unclear about what was exactly done about them. Per history documented by the ED physician, when paramedics arrived the patient was noted to be in SVT. She was treated with 6 mg followed by 12 mg of adenosine after which the patient broke into sinus rhythm. In the emergency room the patient was noted to have an initial troponin of 30.5 with a repeat rising to 472. Pt is seen and examined in the ED around 815. She reports feeling weak but denies palpitations or chest pain. She reports her last Eliquis dose was 3/19 AM. Review of Systems Review of Systems: Negative except HPI/interval history. [facility] Medical History Colitis Schatzki's ring Depression Hypersomnia Snoring Cognitive impairment History of CVA (cerebrovascular accident) Afib Acute CVA (cerebrovascular accident) IBS (irritable bowel syndrome) Abdominal hyperesthesia Dyspepsia Osteoarthritis of lumbar spine Scoliosis GERD (gastroesophageal reflux disease) HTN (hypertension) Family History Son HTN (hypertension) Father No problems noted. Mother No problems noted. Surgical History Status post ablation of incompetent vein using laser (06/12/22) Hx of hysterectomy H/O oophorectomy H/O bilateral breast reduction surgery Social History Household Members: None Housing: Apartment Are you a primary residential care facility manager to a significant other at home: No Do you presently have visiting nurse or other home services: No Alcohol intake: never Patient Tobacco Use Status: Never used Tobacco Smoked in Last 30 Days: No e-Cigarette/Vaping Use: Never Used Second Hand Smoke Exposure: No Use of substances other than those prescribed or required for medical reasons: No Advance Directives: Yes Advance Directives on File: Yes Advance Directives Date on File: 08/13/21 Do you have a plan to hurt others: No Plan service: No Current occupational status: disabled Cognitive needs: No Hearing needs: No Vision needs: Yes (Glasses) Meds Allergies Allergy/AdvReac Type Severity Reaction Status Date / Time oxycodone [From Percocet] Allergy Intermediate Agitated Verified 12/21/24 00:58 morphine AdvReac Agitated Verified 12/21/24 00:58 Active Medications: Current Medications Heparin Sodium (Porcine) (Heparin Sodium,Porcine 5,000 Unit/Ml Vial) 3,000 unit 40 unit/kg (3000 unit) IVPUSH PROTOCOL BOLUS PRN; Protocol PRN Reason: 40 unit/kg - Heparin Protocol Heparin Sodium (Porcine) (Heparin Sodium,Porcine 5,000 Unit/Ml Vial) 6,000 unit 80 unit/kg (6000 unit) IVPUSH PROTOCOL BOLUS PRN; Protocol PRN Reason: 80 unit/kg - Heparin Protocol Heparin Sodium/Sodium Chloride (Heparin Sodium,Porcine/1/2ns) 25,000 unit in 250 mls @ 0 mls/hr IVCONT .Q0M ABDULKADIR; Protocol Home Medications ?Medication ?Instructions ?Recorded ?Confirmed ?Last Taken ?Type donepezil 10 mg tablet 10 mg PO DAILY 08/09/23 12/21/24 08/09/23 History budesonide 0.5 mg/2 mL suspension 0.5 mg inhalation BID 12/21/24 12/21/24 12/20/24 History for nebulization memantine 5 mg tablet 5 mg PO BID 12/21/24 12/21/24 12/20/24 History Physical Exam Vital Signs and Narrative: Vital Signs: Last Vital Signs Temp 98.2 F 12/21/24 07:15 Pulse 84 12/21/24 07:15 Resp 20 12/21/24 07:15 BP 149/80 H 12/21/24 07:15 Pulse Ox 97 12/21/24 07:15 O2 Del Method Room Air 12/21/24 07:15 BMI result Body Mass Index 28.8 Const: Other: Constitutional - Awake and Alert, No apparent distress, vague historian Eyes - PERRLA, EOMI Cardiovascular - S1S2, RRR, No edema Respiratory - Normal lung expansion, Normal respiratory effort, No respiratory distress, CTA bilaterally Gastrointestinal - NT / ND; +BS; No rebound or guarding - No CVA tenderness Extremities - no calf tenderness bilaterally, no swelling Musculoskeletal - Normal inspection, normal ROM Skin - Warm/Dry Neurological - Alert & oriented x3, No focal deficit Psychological - Appropriate affect Results Labs 12/21/24 06:18 12/21/24 01:22 Labs: Laboratory Results - last 24 hr 12/21/24 12/21/24 12/21/24 01:22 06:18 07:16 MCV 88.3 88.3 MCH 29.8 29.9 MCHC 33.8 33.8 RDW 12.8 12.7 Plt Count 205 194 MPV 10.8 11.1 Immature Gran % (Auto) 0.4 Neut % (Auto) 65.2 Lymph % (Auto) 23.2 [place] % (Auto) 8.0 Eos % (Auto) 3.0 Baso % (Auto) 0.2 Lymph # (Auto) 1.3 [place] # (Auto) 0.5 Eos # (Auto) 0.2 Baso # (Auto) 0.0 Abs Immat Gran (auto) 0.02 Absolute Neuts (auto) 3.7 Absolute Nucleated RBC 0.000 0.000 Nucleated RBC % (auto) 0.0 0.0 PT 12.0 12.3 INR 1.0 1.1 aPTT Heparin Protocol 196.4 H* 103.3 H D Anion Gap 11 L Estim Creat Clear Calc 46.7 Estimated GFR 55 Random Glucose 91 Calcium 8.9 Magnesium 1.7 Total Bilirubin 0.2 AST 63 H ALT 46 H Alkaline Phosphatase 73 Total Protein 7.0 Albumin 3.7 Lipase 29 TSH 3.80 Assessment and Plan (1) NSTEMI (non-ST elevated myocardial infarction): Status: Acute Plan 79 yo F with CAD, PAF on Eliquis, ? prior SVT, Cognitive impairment, prior lower GI bleed and others who presents with what appears to be SVT responsive to adenosine. She had subsequent chest pain and elevated troponins. She will be admitted for further management. 1. NSTEMI presents with chest pain post SVT with associated elevations in troponins Last took Eliquis 12/20 AM check PTT now and start heparin drip per protocol cardiology consult and 2d echo aspirin, statin 2. SVT reports prior incidents has had prior holters (in 2023 and 2022) without evidence of SVT. cardiology as above 3. PAF currently in sinus Eliquis on hold, continue metoprolol 4. HTN lisinopril + metoprolol 5. HLD statin 6. GERD PPI + H2 jelani at home -- will continue 7. Cognitive impairment continue baseline meds Full Code DVT pptx -- IV heparin Pt with NSTEMI being managed with IV heparin + requiring expert input therefore expected to require 2 midnights in the hospital for management. Hence, will be admitted as inpatient. Quality Stroke Does the patient have a stroke diagnosis?: No VTE Prior VTE?: No VTE Risk Level:: Medical - moderate - high VTE Device Contraindication: N/A - Device Ordered VTE Drug Contraindication: N/A - Med Ordered
[2024-12-21] MEDS: Heparin Sodium,Porcine/1/2NS 25,000 UNIT/250 ML IV.SOLN 9.04 UNIT IVCONT (09:05)
--- NOTE | 2024-12-21 09:08 | PC.NURSE ---
Heparin drip started with 2 RNs verifying. PTT-HD lab order placed for today at 1500.
[2024-12-21] MEDS: Heparin Sodium,Porcine/1/2NS 25,000 UNIT/250 ML IV.SOLN 8.86 UNIT IVCONT (09:20)
--- NOTE | 2024-12-21 09:22 | PC.NURSE ---
NEW HEPARIN ORDER BY PHARMACY DUE TO SLIGHT WEIGHT DISCREPANCY, FIXED BY PHARMACY. HEPARIN DRIP STARTED AT 09 WITH 2 RNS VERFIYING.
[2024-12-21] MEDS: Atorvastatin Calcium 40 MG TABLET PO ×2 (09:45→20:33)
[2024-12-21] MEDS: lisinopriL 40 MG TABLET PO (09:45)
[2024-12-21] MEDS: Omeprazole 20 MG CAPSULE.DR PO (09:46)
[2024-12-21] MEDS: Memantine HCl 5 MG TABLET PO ×2 (09:46→20:32)
[2024-12-21] MEDS: Metoprolol Succinate ER 50 MG TAB.ER.24H PO ×2 (09:46→20:32)
[2024-12-21] MEDS: Donepezil HCl 10 MG TABLET PO (09:46)
[2024-12-21] MEDS: Calcium + Vitamin D 250 MG TABLET 500 MG PO ×2 (09:46→20:32)
--- NOTE | 2024-12-21 10:39 | PM.CNCAR ---
History of Present Illness History of Present Illness Date of Service: 12/21/24 Requesting physician: Shay Osullivan Chief complaint: Chest pain, palpitations Narrative: [age] year female presenting with SVT and chest discomfort. She has background history of SVT, colitis, Schatzki's ring, asthma, dizziness, hypertension, hyperlipidemia, atrial fibrillation, previous cerebellar infarct and mono clonal gammopathy. She is on apixaban 5 mg twice a day she is also on donepezil for cognitive impairment. She said she has been getting some chest discomfort with activities off and on. Yesterday she started having palpitations and chest discomfort and came to the emergency department. Apparently EMS found her in SVT and gave her adenosine 6 mg followed by 12 mg which converted to sinus rhythm. We do not have the strips available. She continued to have some chest pressure after SVT broke to sinus and her troponin went from 30.5-472.5 and we repeated again it was 495.5. She has been symptom-free at this stage. Echocardiography was performed which did not show any obvious wall motion abnormalities but will be reviewed in more detail. She was started on heparin drip in the morning when her 2nd troponin came back at 472.5. [facility] Past Medical History Medical History Colitis Schatzki's ring Depression Hypersomnia Snoring Cognitive impairment History of CVA (cerebrovascular accident) Afib Acute CVA (cerebrovascular accident) IBS (irritable bowel syndrome) Abdominal hyperesthesia Dyspepsia Osteoarthritis of lumbar spine Scoliosis GERD (gastroesophageal reflux disease) HTN (hypertension) Family History Family History Son HTN (hypertension) Father No problems noted. Mother No problems noted. Surgical History Surgical History Status post ablation of incompetent vein using laser (06/12/22) Hx of hysterectomy H/O oophorectomy H/O bilateral breast reduction surgery Social History Social History Household Members: None Housing: Apartment Are you a primary lead care manager to a significant other at home: No Do you presently have visiting nurse or other home services: No Alcohol intake: never Patient Tobacco Use Status: Never used Tobacco Smoked in Last 30 Days: No e-Cigarette/Vaping Use: Never Used Second Hand Smoke Exposure: No Use of substances other than those prescribed or required for medical reasons: No Advance Directives: Yes Advance Directives on File: Yes Advance Directives Date on File: 08/13/21 Do you have a plan to hurt others: No Plan service: No Current occupational status: disabled Cognitive needs: No Hearing needs: No Vision needs: Yes (Glasses) Meds Allergies Allergy/AdvReac Type Severity Reaction Status Date / Time oxycodone [From Percocet] Allergy Intermediate Agitated Verified 12/21/24 00:58 morphine AdvReac Agitated Verified 12/21/24 00:58 Active Medications: Current Medications Acetaminophen (Acetaminophen 325 Mg Tablet) 650 mg PO Q6H PRN PRN Reason: Pain, Mild 1-3,fever,headache Atorvastatin Calcium (Atorvastatin Calcium 40 Mg Tablet) 40 mg PO BEDTIME [facility] Last Admin: 12/21/24 09:45 Dose: 40 mg Calcium Carbonate (Calcium Carbonate 750 Mg Tab.Chew) 750 mg PO Q4H PRN PRN Reason: Heartburn Calcium Carbonate/Cholecalciferol (Calcium + Vitamin D 250 Mg Tablet) 500 mg PO BID [facility] Last Admin: 12/21/24 09:46 Dose: 500 mg Donepezil HCl (Donepezil Hcl 10 Mg Tablet) 10 mg PO DAILY [facility] Last Admin: 12/21/24 09:46 Dose: 10 mg Famotidine (Famotidine 20 Mg Tablet) 40 mg PO BEDTIME [facility] Heparin Sodium (Porcine) (Heparin Sodium,Porcine 5,000 Unit/Ml Vial) 3,000 unit 40 unit/kg (3000 unit) IVPUSH PROTOCOL BOLUS PRN; Protocol PRN Reason: 40 unit/kg - Heparin Protocol Heparin Sodium (Porcine) (Heparin Sodium,Porcine 5,000 Unit/Ml Vial) 5,900 unit 80 unit/kg (5900 unit) IVPUSH PROTOCOL BOLUS PRN; Protocol PRN Reason: 80 unit/kg - Heparin Protocol Heparin Sodium/Sodium Chloride (Heparin Sodium,Porcine/1/2ns) 25,000 unit in 250 mls @ 0 mls/hr IVCONT .Q0M [facility]; Protocol Last Admin: 12/21/24 09:20 Dose: 12 units/kg/hr, 8.86 mls/hr Lisinopril (Lisinopril 40 Mg Tablet) 40 mg PO DAILY [facility]; Protocol Last Admin: 12/21/24 09:45 Dose: 40 mg Magnesium Hydroxide (Milk Of Magnesia 30 Ml Oral.Susp) 30 ml PO DAILY PRN PRN Reason: Constipation Melatonin (Melatonin 3 Mg Tablet) 6 mg PO BEDTIME PRN PRN Reason: Insomnia Memantine (Memantine Hcl 5 Mg Tablet) 5 mg PO BID [facility] Last Admin: 12/21/24 09:46 Dose: 5 mg Metoprolol Succinate (Metoprolol Succinate Er 50 Mg Tab.Er.24h) 50 mg PO BID [facility]; Protocol Last Admin: 12/21/24 09:46 Dose: 50 mg Omeprazole (Omeprazole 20 Mg Capsule.Dr) 20 mg PO DAILY@0630 [facility] Last Admin: 12/21/24 09:46 Dose: 20 mg Sodium Chloride (0.9 % Sodium Chloride Flush 3 Ml Syringe) 3 ml IVFLUSH QSHIFT [facility] Home Medications ?Medication ?Instructions ?Recorded ?Confirmed ?Last Taken ?Type donepezil 10 mg tablet 10 mg PO DAILY 08/09/23 12/21/24 08/09/23 History budesonide 0.5 mg/2 mL suspension 0.5 mg inhalation BID 12/21/24 12/21/24 12/20/24 History for nebulization memantine 5 mg tablet 5 mg PO BID 12/21/24 12/21/24 12/20/24 History Physical Exam Vital Signs: Vital Signs: Last Vital Signs Temp 98.2 F 12/21/24 07:15 Pulse 75 12/21/24 09:46 Resp 20 12/21/24 07:15 BP 141/57 H 12/21/24 09:46 Pulse Ox 97 12/21/24 07:15 O2 Del Method Room Air 12/21/24 07:15 BMI result Body Mass Index 28.8 GENERAL APPEARANCE: in no acute distress, pleasant. NECK: no carotid bruit, no jugular venous distention. SKIN: no suspicious lesions, warm and dry. HEART: no murmurs, regular rate and rhythm. LUNGS: clear to auscultation bilaterally. ABDOMEN: soft, nontender. EXTREMITIES: no edema. PERIPHERAL PULSES: equal. NEUROLOGIC: No gross deficits, AAO X 3 Objective Labs and Meds 12/21/24 06:18 12/21/24 01:22 Lab results: Laboratory Results - last 24 hr 12/21/24 12/21/24 12/21/24 01:22 04:40 06:18 WBC 5.7 5.0 RBC 4.09 L 4.02 L Hgb 12.2 12.0 Hct 36.1 L 35.5 L MCV 88.3 88.3 MCH 29.8 29.9 MCHC 33.8 33.8 RDW 12.8 12.7 Plt Count 205 194 MPV 10.8 11.1 Immature Gran % (Auto) 0.4 Neut % (Auto) 65.2 Lymph % (Auto) 23.2 [place] % (Auto) 8.0 Eos % (Auto) 3.0 Baso % (Auto) 0.2 Lymph # (Auto) 1.3 [place] # (Auto) 0.5 Eos # (Auto) 0.2 Baso # (Auto) 0.0 Abs Immat Gran (auto) 0.02 Absolute Neuts (auto) 3.7 Absolute Nucleated RBC 0.000 0.000 Nucleated RBC % (auto) 0.0 0.0 PT 12.0 12.3 INR 1.0 1.1 aPTT Heparin Protocol 196.4 H* Sodium 143 Potassium 3.4 Chloride 109 H Carbon Dioxide 26 Anion Gap 11 L BUN 26 H Creatinine 0.98 Estim Creat Clear Calc 46.7 Estimated GFR 55 Random Glucose 91 Calcium 8.9 Magnesium 1.7 Total Bilirubin 0.2 AST 63 H ALT 46 H Alkaline Phosphatase 73 Troponin I High Sens 30.5 H D 472.7 H* D Total Protein 7.0 Albumin 3.7 Lipase 29 TSH 3.80 12/21/24 12/21/24 07:16 08:26 WBC RBC Hgb Hct MCV MCH MCHC RDW Plt Count MPV Immature Gran % (Auto) Neut % (Auto) Lymph % (Auto) [place] % (Auto) Eos % (Auto) Baso % (Auto) Lymph # (Auto) [place] # (Auto) Eos # (Auto) Baso # (Auto) Abs Immat Gran (auto) Absolute Neuts (auto) Absolute Nucleated RBC Nucleated RBC % (auto) PT INR aPTT Heparin Protocol 103.3 H D 64.0 D Sodium Potassium Chloride Carbon Dioxide Anion Gap BUN Creatinine Estim Creat Clear Calc Estimated GFR Random Glucose Calcium Magnesium Total Bilirubin AST ALT Alkaline Phosphatase Troponin I High Sens Total Protein Albumin Lipase TSH Assessment and Plan (1) NSTEMI (non-ST elevated myocardial infarction): Status: Acute (2) SVT (supraventricular tachycardia): Status: Acute Plan 79-year-old female with NSTEMI in the setting of supraventricular tachycardia. She had some prolonged discomfort after SVT was broken and 2nd troponin came back high at 470s. She has been symptom-free. We repeated troponin again that is 495.5. I will review echocardiography. If no significant wall motion abnormalities then we will consider stopping heparin drip. If significant wall motion abnormality then we will continue heparin and transferred to [facility] for potential cardiac catheterization. I think we should repeat ECG today. We will follow along with you. Thank you for allowing me to participate in the care of your patient. Please feel free to contact me if you have any questions. Procedures Date of Service Date of Service: 12/21/24
[2024-12-21 12:13] LABS: Troponin-I High Sensitivity 495.5 ng/L (<3.5-17.0)
--- NOTE | 2024-12-21 13:16 | PC.NURSE ---
D/C heparin drip per provider
[2024-12-21] MEDS: 0.9 % Sodium Chloride Flush 3 ML SYRINGE IVFLUSH ×2 (15:17→22:26)
[2024-12-21] MEDS: Acetaminophen 325 MG TABLET 650 MG PO ×2 (15:19→22:31)
[2024-12-21] MEDS: Famotidine 20 MG TABLET 40 MG PO (20:32)
[2024-12-21] MEDS: Apixaban 5 MG TABLET PO (20:33)
[2024-12-22 04:00] VITALS: BP 131/70; PULSE 61; RESP 16; TEMP 36.2; O2SAT 96
[2024-12-22] MEDS: Omeprazole 20 MG CAPSULE.DR PO (06:20)
[2024-12-22 06:59] LABS: Hematocrit 37.6 % (37.0-47.0); Hemoglobin 12.3 g/dl (12.0-16.0); Mean Corpuscular HGB Conc 32.7 g/dl (31.0-35.0); Mean Corpuscular Hemoglobin 29.5 pg (27.0-33.0); Mean Corpuscular Volume 90.2 fL (80.0-98.0); Platelet Count 198 X10*3/uL (160-400); Red Blood Count 4.17 X10*6/uL (4.20-5.50); Red Cell Distribution Width 12.9 % (11.0-16.0); White Blood Count 3.8 X10*3/uL (4.8-10.8)
[2024-12-22 07:08] LABS: Anion Gap 10 (12-20); Blood Urea Nitrogen 19 mg/dL (9-16); Calcium 8.9 mg/dL (8.4-10.2); Carbon Dioxide 27 mmol/L (22-29); Chloride 109 mmol/L (96-108); Estimated Glomerular Filt Rate > 60; Glucose Random 86 mg/dL (60-115); Potassium 3.6 mmol/L (3.3-5.1); Sodium 142 mmol/L (135-145)
[2024-12-22 08:09] VITALS: BP 138/72; PULSE 64; RESP 16; TEMP 36.1; O2SAT 94
[2024-12-22] MEDS: lisinopriL 40 MG TABLET PO (08:40)
[2024-12-22] MEDS: Donepezil HCl 10 MG TABLET PO (08:40)
[2024-12-22] MEDS: Memantine HCl 5 MG TABLET PO (08:40)
[2024-12-22] MEDS: Metoprolol Succinate ER 50 MG TAB.ER.24H PO (08:40)
[2024-12-22] MEDS: Apixaban 5 MG TABLET PO (08:40)
[2024-12-22] MEDS: Calcium + Vitamin D 250 MG TABLET 500 MG PO (08:40)
[2024-12-22] MEDS: 0.9 % Sodium Chloride Flush 3 ML SYRINGE IVFLUSH (09:38)
--- NOTE | 2024-12-22 09:50 | MHC.CM.PN ---
CM met with Patient at bedside, with the assist of a [facility] Video Conference Specialist and addressed IMM with her, providing Patient with the original and a copy has been placed on the chart. 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 Home is the Patient's goal and CM has initiated and will follow for dc planning. Patient's Son/HCP/Floyd will transport to home and PCP is Dr. Yeny Bose.
--- NOTE | 2024-12-22 10:50 | P.DS_ITS ---
DS: Providers Provider Date of Service: 12/22/24 Date of admission: 12/21/24 08:42 Date of discharge: 12/22/24 Primary care physician: Unknown Physician Consults: 12/21/24 08:35 Consult to Cardiology Routine Consulting Provider: [facility] Reason for consultation: svt, ? nstemi vs demand ischemia Attending physician on discharge: Shay Osullivan Discharging clinician: Madhavi Huang DS: Diagnosis Discharge Diagnosis (1) NSTEMI (non-ST elevated myocardial infarction): Status: Acute (2) SVT (supraventricular tachycardia): Status: Acute DS: Summary Hospital Course Hospital Course: From H&P on the day of admission This is a 79-year-old female with a past m edical history of hypertension, CVA, paroxysmal AFib on Eliquis, CAD, prior lower GI bleed due to diverticulosis, cognitive impairment who presents to [facility] ED with complaints of palpitations and chest pressure. The history is taken with the help of vice president digital strategist services. The patient reports that she was in her usual state of health on the day prior to hospitalization. On the evening prior to hospitalization, while the patient was watching TV, she had a sudden feeling of palpitations. She reports that she felt as if her heart was going to jump out of her mouth. Subsequent to this, the patient reports chest pressure. She reports that both of these have since resolved. Reports prior such episodes in the past. However, she is unclear about what was exactly done about them. Per history documented by the ED physician, when paramedics arrived the patient was noted to be in SVT. She was treated with 6 mg followed by 12 mg of adenosine after which the patient broke into sinus rhythm. In the emergency room the patient was noted to have an initial troponin of 30.5 with a repeat rising to 472. Pt is seen and examined in the ED around 815. She reports feeling weak but denies palpitations or chest pain. She reports her last Eliquis dose was 3 AM. NSTEMI presents with chest pain post SVT with associated elevations in troponins. Initially started on heparin drip. Echocardiogram was obtained which showed no wall motion abnormality. She was seen by Cardiology, heparin drip was stopped and she was resumed on her home dose of Eliquis. Suspected to be type 2 NSTEMI due to demand from NSVT. No further inpatient workup recommended at this time. SVT reports prior incidents. has had prior holters (in 2023 and 2022) without evidence of SVT. Seen by Cardiology, plan for outpatient referral to EP. Time Attestation Discharge Coordination Time (in mins): 30 Quality: Safe Use of Opioids Does Pt have an Active Cancer Diagnosis on the Problem List?: No Quality: Stroke Does the patient have a stroke diagnosis?: No Physical Exam Vital Signs: Vital Signs: Last Vital Signs Temp 96.9 F 12/22/24 08:09 Pulse 64 12/22/24 08:09 Resp 16 12/22/24 08:09 BP 138/72 12/22/24 08:09 Pulse Ox 94 12/22/24 08:09 O2 Del Method Room Air 12/22/24 08:09 BMI result Body Mass Index 28.9 Const: General: cooperative, comfortable, no acute distress, alert and awake Nutritional Appearance: average body habitus Resp: Effort & Inspection: normal respiratory effort, able to speak in complete sentences, no respiratory distress and no use of accessory muscles Cardio: Rate: regular rate DS: Data Data Completed and Pending Completed studies during hospitalization [Text1]: Procedures Excision of Sigmoid Colon, Via Natural or Artificial Opening Endoscopic, Diagnostic (10/05/24) Labs on day of discharge: Laboratory Results - last 24 hr 12/21/24 12/22/24 11:35 06:15 WBC 3.8 L RBC 4.17 L Hgb 12.3 Hct 37.6 MCV 90.2 MCH 29.5 MCHC 32.7 RDW 12.9 Plt Count 198 MPV 12.0 Absolute Nucleated RBC 0.000 Nucleated RBC % (auto) 0.0 Sodium 142 Potassium 3.6 Chloride 109 H Carbon Dioxide 27 Anion Gap 10 L BUN 19 H Creatinine 0.72 Estim Creat Clear Calc 63.0 Estimated GFR > 60 Random Glucose 86 Calcium 8.9 Troponin I High Sens 495.5 H* Discharge Plan Discharge Anticipated Discharge Date/Time: 12/22/24 10:55 Patient Disposition: Home, Self-Care Discharge Diagnosis: Type 2 NSTEMI SVT Referrals: Physician,Unknown J [Primary Care Provider] - 1 Week Discharge Medications: Continued (DME) compress.stocking,knee,reg,med Misc See Rx Instructions .Route Qty: 2 0RF Rx Instructions: As directed (DME) Shower Chair Misc See Rx Instructions .Route Qty: 1 0RF Rx Instructions: As directed (DME) Grab bar Misc See Rx Instructions .Route Qty: 2 0RF Rx Instructions: As directed (DME) toilet frame See Rx Instructions .Route .MEDSUPPLY Qty: 1 0RF Rx Instructions: As directed (DME) handheld showerhead See Rx Instructions .Route .MEDSUPPLY Qty: 1 0RF Rx Instructions: As directed (DME) Ultra-Light Rollator Misc See Rx Instructions .Route Qty: 1 0RF Rx Instructions: As directed (DME) underpads [Bed Underpads] Pad See Rx Instructions .Route Qty: 100 6RF Rx Instructions: As directed (DME) incontinence pads regular See Rx Instructions .Route .MEDSUPPLY Qty: 240 6RF Rx Instructions: As directed Eliquis 5 mg tablet 5 mg PO BID Qty: 60 7RF calcium carbonate-vitamin D3 [Calcium 500 With D] 500 mg-10 mcg (400 unit) tablet 1 tab PO BID 90 Days Qty: 180 2RF atorvastatin 40 mg tablet 40 mg PO BEDTIME Qty: 90 1RF lisinopril 40 mg tablet 40 mg PO DAILY Qty: 90 3RF metoprolol succinate 50 mg tablet extended release 24 hr 50 mg PO BID Qty: 180 1RF famotidine 40 mg tablet 40 mg PO BEDTIME Qty: 90 1RF ipratropium-albuterol 0.5 mg-3 mg(2.5 mg base)/3 mL solution for nebulization 3 ml inhalation DAILY 30 Days Qty: 90 0RF donepezil 10 mg tablet 10 mg PO DAILY memantine 5 mg Tablet 5 mg PO BID budesonide 0.5 mg/2 mL suspension for nebulization 0.5 mg inhalation BID esomeprazole magnesium [Nexium] 40 mg capsule,delayed release(DR/EC) 40 mg PO DAILY Qty: 90 5RF amoxicillin-pot clavulanate 875-125 mg tablet 1 tab PO BID Qty: 20 0RF Rx Instructions: ordered 12/04/24 for 10 days supply, should be complete, but patient states she still has some left Discharge Orders: Discharge Order (Routine); Ordered 12/22/24 Ordered By: Madhavi Huang Activity on Discharge: As tolerated Stand Alone Forms: Patient Portal Discharge page Print Language: Moz[place]ican Care Plan Goals: See below Health Concerns: Type 2 NSTEMI due to demand from SVT Plan of Treatment: Outpatient follow-up with Cardiology-referral to electrophysiology Assessment: See discharge summary
--- NOTE | 2024-12-22 11:23 | MHC.CM.PN ---
Patient has been medically cleared for dc to home today, self care.
--- NOTE | 2024-12-22 11:29 | PM.PNCARD ---
Subjective Subjective Date of Service: 12/22/24 Interval history: Seen examined at bedside. Feeling better. Physical Exam Vital Signs: Last Vital Signs Temp 96.9 F 12/22/24 08:09 Pulse 64 12/22/24 08:09 Resp 16 12/22/24 08:09 BP 138/72 12/22/24 08:09 Pulse Ox 94 12/22/24 08:09 O2 Del Method Room Air 12/22/24 08:09 BMI result Body Mass Index 28.9 GENERAL APPEARANCE: in no acute distress, pleasant. NECK: no carotid bruit, no jugular venous distention. SKIN: no suspicious lesions, warm and dry. HEART: no murmurs, regular rate and rhythm. LUNGS: clear to auscultation bilaterally. ABDOMEN: soft, nontender. EXTREMITIES: no edema. PERIPHERAL PULSES: equal. NEUROLOGIC: No gross deficits, AAO X 3 Objective Labs and Meds 12/22/24 06:15 12/22/24 06:15 Lab results: Laboratory Results - last 24 hr 12/21/24 12/22/24 11:35 06:15 WBC 3.8 L RBC 4.17 L Hgb 12.3 Hct 37.6 MCV 90.2 MCH 29.5 MCHC 32.7 RDW 12.9 Plt Count 198 MPV 12.0 Absolute Nucleated RBC 0.000 Nucleated RBC % (auto) 0.0 Sodium 142 Potassium 3.6 Chloride 109 H Carbon Dioxide 27 Anion Gap 10 L BUN 19 H Creatinine 0.72 Estim Creat Clear Calc 63.0 Estimated GFR > 60 Random Glucose 86 Calcium 8.9 Troponin I High Sens 495.5 H* Progress Note: A&P Assessment and plan (1) NSTEMI (non-ST elevated myocardial infarction): Status: Acute (2) SVT (supraventricular tachycardia): Status: Acute Plan Pleasant lady with SVT and mild NSTEMI. This is a type 2 event. Echocardiography has shown normal LV function without any wall motion abnormalities. She had 5 episodes of SVT in the past. She is asking whether she can get any definitive treatment. I think she will benefit from discussion with EP for ablation. We will refer as outpatient. Thank you for allowing me to participate in the care of your patient. Please feel free to contact me if you have any questions. Time Spent With Patient Time: Total time managing care of this patient today ____ minutes. Progress Note: Quality Stroke Does the patient have a stroke diagnosis?: No Procedures Date of Service Date of Service: 12/22/24
[2024-12-22 11:57] VITALS: BP 147/70; PULSE 56; RESP 20; TEMP 36.6; O2SAT 97
== END 2024-12-22 17:38 | disposition home or self-care (01) | DRG 282 ==
LOC: HO.ED 05:49 → HO.EDOVER 08:42 → HO.IMC 19:57
PROVIDERS: Emergency Medicine; Internal Medicine Cardiovascular Disease; Admitting Provider Family Medicine; Emergency Provider Emergency Medicine; PCP Internal Medicine; Visit Provider Physician Assistant Medical
DX: I47.10 Supraventricular tachycardia, unspecified (principal); I21.A1 Myocardial infarction type 2; I48.0 Paroxysmal atrial fibrillation; I25.10 Atherosclerotic heart disease of native coronary artery without angina pectoris; I10 Essential (primary) hypertension; K21.9 Gastro-esophageal reflux disease without esophagitis; Z79.01 Long term (current) use of anticoagulants; Z79.899 Other long term (current) drug therapy
CPT/HCPCS: 36415; 71045; 80048; 80053; 83690; 83735; 84443; 84484; 85025; 85027; 85610; 85730; 93005; 93306; 99285; J1644; Q9957

== ENCOUNTER → 2024-12-21 05:34 | Outpatient (BNV) | payer OTHER, SELFPAY | PROVIDERS: Emergency Provider Emergency Medicine; Visit Provider Radiology Diagnostic Radiology | DX: R07.9 Chest pain, unspecified (principal); R79.89 Other specified abnormal findings of blood chemistry | CPT/HCPCS: 71045 ==

== ENCOUNTER → 2024-12-21 08:42 | Outpatient (BNV) | payer OTHER, SELFPAY | PROVIDERS: Admitting Provider Family Medicine; Emergency Provider Emergency Medicine; Visit Provider Internal Medicine Cardiovascular Disease | DX: I21.4 Non-ST elevation (NSTEMI) myocardial infarction (principal); I47.10 Supraventricular tachycardia, unspecified; R00.0 Tachycardia, unspecified; R94.31 Abnormal electrocardiogram [ECG] [EKG]; I42.8 Other cardiomyopathies | CPT/HCPCS: 93010; 93306; 99223; 99232 ==

== ENCOUNTER → 2024-12-21 08:42 | Outpatient (BNV) | payer OTHER, SELFPAY | PROVIDERS: Admitting Provider Family Medicine; Emergency Provider Emergency Medicine; Visit Provider Family Medicine | DX: I21.4 Non-ST elevation (NSTEMI) myocardial infarction (principal); I47.10 Supraventricular tachycardia, unspecified | CPT/HCPCS: 99223; 99239 ==

== ENCOUNTER 2024-12-25 08:32 | Outpatient (AMB) | payer OTHER, SELFPAY ==
--- NOTE | 2024-12-25 08:39 | A.OFFPC_ITS ---
Vital Signs 12/25/24 08:40 Height 5 ft 3 in Weight 154 lb BMI 27.3 BP 132/80 Blood Pressure Location Lt brachial Position Sitting Pulse 86 Pulse Source Pulse Oximeter Pulse Oximetry (%) 97 Oxygen Delivery Method Room Air Intake Visit Reasons: PE Intake Note: Patient here for a physical exam Aircraft Electrician Required: Yes Aircraft Electrician Language: Cotton Expert Name: Yeny Rosenthal MD Information Interpreted: non-clinical & clinical Accompanied by: Self / Same As Patient Allergies oxycodone [From Percocet] Allergy (Intermediate, Verified 12/25/24 08:58) Agitated morphine Adverse Reaction (Verified 12/25/24 08:58) Agitated Medication List - Last Reconciled 12/25/24 by Yeny Rosenthal MD apixaban (Eliquis) 5 mg PO BID atorvastatin 40 mg PO BEDTIME budesonide 0.5 mg inhalation BID calcium carbonate-vitamin D3 500 mg-10 mcg (400 unit) (Calcium 500 With D) 1 tab PO BID 90 days compress.stocking,knee,reg,med As directed donepezil 10 mg PO DAILY esomeprazole magnesium (Nexium) 40 mg PO DAILY famotidine 40 mg PO BEDTIME Grab bar As directed [handheld showerhead As directed] [incontinence pads As directed] ipratropium-albuterol 0.5 mg-3 mg(2.5 mg base)/3 mL 3 mL inhalation DAILY 30 days lisinopril 40 mg PO DAILY memantine 5 mg PO BID metoprolol succinate ER 50 mg PO BID Shower Chair As directed [toilet frame As directed] underpads (Bed Underpads) As directed walker (Ultra-Light Rollator misc) As directed Tobacco use date assessed: 10/13/24 Fall risk assessment: No Falls in past year Last assessed Fall Risk: 12/25/24 Dental Screening Dental Screen Date: 10/13/24 HPI HPI Comments History of Present Illness Details The patient is a 79-year-old female presenting for a comprehensive physical examination and follow-up care for her existing medical problems. Her chronic conditions include hypertension and hyperlipidemia, both managed with ongoing pharmaceutical interventions. Notably, she experienced an ischemic colitis episode diagnosed last October, necessitating a colonoscopy, and more recently, a NSTEMI event marked by high troponin levels and chest discomfort in December. Her history of allergy to Percocet and morphine is significant and should be noted for avoidance in future pain management strategies. Given her age, the patient is also at increased risk for osteoporosis, necessitating a bone density scan as no recent assessment is documented. She reports new challenges with memory and vision, using terms such as feeling blind without formal ophthalmologic evaluation to date. Her surgical background includes interventions such as a leg ablation and reproductive organ surgeries. These history elements and detailed medical regimens, including anticoagulation for atrial fibrillation and gastric medication, illustrate her diverse chronic condition management needs. - Pneumonia and shingles vaccinations up to date. - Mammography was last conducted in summ er of the previous year. - Repeat bone densitometry recommended f or osteoporosis screening every two years. - Colonoscopy conducted in October with findings of ischemic colitis. - Planning follow-up with gastroenterolo gy and neurology. [facility] Medical History (Updated 12/25/24 @ 12:06 by Yeny Rosenthal MD) Colitis Schatzki's ring Depression Hypersomnia Snoring Cognitive impairment History of CVA (cerebrovascular accident) Afib Acute CVA (cerebrovascular accident) IBS (irritable bowel syndrome) Abdominal hyperesthesia Dyspepsia Osteoarthritis of lumbar spine Scoliosis GERD (gastroesophageal reflux disease) HTN (hypertension) Surgical History Status post ablation of incompetent vein using laser (06/12/22) Hx of hysterectomy H/O oophorectomy H/O bilateral breast reduction surgery Family History Son HTN (hypertension) Father No problems noted. Mother No problems noted. Social History Household Members: Other Household Members Other:: Grandson Housing: Condominium Are you a primary child care team lead to a significant other at home: No Do you presently have visiting nurse or other home services: No Alcohol intake: never Patient Tobacco Use Status: Never used Tobacco e-Cigarette/Vaping Use: Never Used Second Hand Smoke Exposure: No Advance Directives Date on File: 08/13/21 service: No Current occupational status: disabled Cognitive needs: No Hearing needs: No Vision needs: Yes (Glasses) Questionnaire PHQ-9 Over the last 2 weeks, how often have you been bothered by any of the following problems? 1. Little interest or pleasure in doing things: not at all 2. Feeling down, depressed, or hopeless: not at all 3. Trouble falling or staying asleep, or sleeping too much: not at all 4. Feeling tired or having little energy: not at all 5. Poor appetite or overeating: not at all 6. Feeling bad about yourself - or that you are a failure or have let yourself or your family down: not at all 7. Trouble concentrating on things, such as reading the newspaper or watching television: not at all 8. Moving or speaking so slowly that other people could have noticed. Or the opposite - being so fidgety or restless that you have been moving around a lot more than usual: not at all 9. Thoughts that you would be better off or of hurting yourself in some way: not at all Total score: 0 Depression Screening Interpretation: Negative Depression Screening Done: Yes 89179 - PHQ-9 Billing: Yes Source: Developed by Drs. Jacinto Yee, Lucia Garcia, Rigoberto Love and colleagues, with an educational jovani from [employer]. Thrive Questionnaire Date Thrive assessed: 12/22/24 I am a: Patient What is your living situation today?: I have a steady place to live Within the past 12 months, did the food you bought not last and you didn't have the money to get more?: Never true Within the past 12 months, did you worry whether your food would run out before you got money to buy more?: Never true Do you have trouble paying for medicines?: No Do you have trouble getting transportation to medical appointments?: No Do you have trouble paying your heating and electricity bill?: No Do you have trouble taking care of your child, family member or friend?: No Do you have trouble with day-to-day activities such as bathing, preparing meals, shopping, managing finances, etc.?: No Are you currently unemployed and looking for a job?: No Are you interested in more education?: No Please select the resources that you would like help with: None Currently or been in a relationship where the following occur: No concerns reported THRIVE Score: 0 AUDIT C Alcohol Use Questionnaire (AUDIT-C) 1. How often do you have a drink containing alcohol?: Never Total Score: 0 Score Reviewed/Action Taken: No SINCERE-7 AMB Questionnaire SINCERE-7 Date SINCERE - 7 assessed: 10/13/24 Feeling nervous, anxious, or on edge: 0 = Not at all Not being able to stop or control worryin = Not at all Worrying too much about different things: 0 = Not at all Trouble relaxin = Not at all Being so restless that it is hard to sit still: 0 = Not at all Becoming easily annoyed or irritable: 0 = Not at all Feeling afraid as if something awful might happen: 0 = Not at all Total SINCERE-7 score (0-4 normal; 5-9 mild; 10-14 moderate; 15-21 severe): 0 Source: Developed by Drs. Jacinto Yee, Lucia Garcia, Rigoberto Love and colleagues, with an educational jovani from [employer]. SINCERE-7 Assessment Billing SINCERE-7 Assessment Tool: SINCERE-7 Assessment 95017 Review of Systems Const All systems reviewed & are unremarkable except as noted in HPI and below Card Denies chest pain at rest, Denies chest pain with activity, Denies edema, Denies irregular heart rhythm, Denies claudication, Denies dyspnea, Denies dyspnea on exertion, Denies orthopnea, Denies paroxysmal nocturnal dyspnea and Denies slow heart rate Resp Denies cough, Denies dyspnea and Denies dyspnea on exertion GI Denies abdominal pain, Denies change in bowel habits, Denies excessive flatus, Denies nausea and Denies vomiting Neuro Denies behavioral changes and Denies lack of coordination Psych Denies behavioral changes Physical exam (Primary Care) Vital Signs: Last Vital Signs Pulse 86 12/25/24 08:40 BP 132/80 12/25/24 08:40 Pulse Ox 97 12/25/24 08:40 Oxygen Delivery Method Room Air 12/25/24 08:40 BMI result Body Mass Index 27.3 Tobacco/Smoking Status: Tobacco use Status Tobacco use date assessed 10/13/24 12/25/24 08:48 Patient Tobacco Use Status Never used Tobacco 12/25/24 08:48 e-Cigarette/Vaping Use Never Used 12/25/24 08:48 PHQ-9: PHQ-9 Score PHQ-9: Total score 0 12/25/24 09:00 Depression Screening Interpretation: Negative Thrive Assessment: Date of Thrive Assessment Date Thrive assessed 12/22/24 12/25/24 08:48 Currently or been in a relationship where the following occur: No concerns reported Eyes General: appearance normal, both eyes and all related structures Eyelids: Yes eyelids normal Conjunctivae: conjunctivae normal Neck Neck: Yes normal visual inspection and Yes supple Resp Effort & Inspection: normal respiratory effort Auscultation: clear to auscultation bilaterally Cardio Jugular venous distension: no JVD Rate: regular rate Rhythm: regular rhythm Heart sounds: S1 normal heart sound present and S2 normal heart sound present GI Inspection: Yes normal to inspection Palpation (GI): Soft to palpation and nontender Auscultation: normal bowel sounds Skin General skin exam: no rashes or lesions noted Neuro General: no focal motor deficits Extrem General: Yes full ROM Psych Appearance: grossly normal Coding Level of Care Code Est Pt Level 3 (55337) Est Pt Prev Care 18-39y(50371) Diagnoses Physical exam Z00.00 NSTEMI (non-ST elevated myocardial infarction) I21.4 Cerebellar infarct I63.9 Additional Codes SINCERE-7 Assessment Billing - SINCERE-7 Assessment Tool: SINCERE-7 Assessment 41572 ([id number]) PHQ-9 - 23506 - PHQ-9 Billing: Yes ([id number]) Time Spent (min) 32 Assessment & Plan Assessment & Plan (1) Physical exam: Code(s): Z00.00 - Encounter for general adult medical examination without abnormal findings Category: Medical (2) NSTEMI (non-ST elevated myocardial infarction): Code(s): I21.4 - Non-ST elevation (NSTEMI) myocardial infarction Category: Medical (3) Cerebellar infarct: Code(s): I63.9 - Cerebral infarction, unspecified Category: Medical Plan The patient requires ongoing monitoring for her multifaceted chronic health conditions: she will be referred to cardiology and gastroenterology for follow- ups of NSTEMI and ischemic colitis, respectively. Continuation of her current medications is advised, but I will evaluate their effectiveness regularly. As osteoporosis is suspected, a bone densitometry has been planned. I addressed her optical challenges by recommending an ophthalmology referral for eye evaluation. Her cognitive concerns will be further evaluated with planned neurology follow- up. Maintenance of antihypertensive and lipid-lowering regimens was confirmed, and alternative pain management strategies will be employed due to her allergies. Patient was informed and verbally consented to the use of an ambient scribe for clinic note documentation during this visit. 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 We briefly explored the importance of continued monitoring on her current medications, potential modifications depending on her lab results, and symptomatic changes. Consent was obtained for a future bone densitometry to assess osteoporosis risk, while her vision issues will be further evaluated by an inspector eyeglass frames. I provided reassurances regarding the neuro-cognitive evaluations, emphasizing the value of understanding her cognitive status within her age context and current treatment regime. Orders: Orders Vitamin D 25-OH Total Today E55.9 - Vitamin D deficiency, unspecified XR DEXA axial skeleton Today Z78.0 - Asymptomatic menopausal state Comprehensive [place]. Panel Fast Today I21.4 - Non-ST elevation (NSTEMI) myocardial infarction Lipid Panel Today E78.5 - Hyperlipidemia, unspecified Referrals Cardiology Referral I21.4 - Non-ST elevation (NSTEMI) myocardial infarction Patient Instructions: - Follow up with referred specialists in gastroenterology and cardiology for ongoing management. - Continue current medications as prescribed. - Attend scheduled bone density scan for osteoporosis assessment. - Await ophthalmology appointment to evaluate visual concerns. - Return for regular monitoring and lab work as needed. - Contact the clinic with any new or escalating symptoms.
[2024-12-25 08:40] VITALS: BP 132/80; PULSE 86; O2SAT 97; BMI 27.3
== END 2024-12-25 09:18 | disposition home or self-care (01) ==
LOC: HO.HMCH 08:33
PROVIDERS: PCP Internal Medicine; Visit Provider Internal Medicine
DX: Z00.00 Encounter for general adult medical examination without abnormal findings (principal); I25.2 Old myocardial infarction; I63.9 Cerebral infarction, unspecified

== ENCOUNTER → 2024-12-25 08:32 | Outpatient (BNVA) | payer OTHER, SELFPAY | PROVIDERS: PCP Internal Medicine; Visit Provider Internal Medicine | DX: Z00.00 Encounter for general adult medical examination without abnormal findings (principal); I21.4 Non-ST elevation (NSTEMI) myocardial infarction; I63.9 Cerebral infarction, unspecified; E78.5 Hyperlipidemia, unspecified; I10 Essential (primary) hypertension | CPT/HCPCS: 96127; 99212; 99397 ==

== ENCOUNTER 2024-12-29 10:32 | Outpatient (AMB) | payer OTHER, SELFPAY ==
[2024-12-29 11:26] VITALS: BP 138/86; PULSE 80; O2SAT 98; BMI 27.5
--- NOTE | 2024-12-29 11:26 | MHC.PC.OV ---
Vital Signs 12/29/24 11:26 Height 5 ft 3 in Weight 155 lb BMI 27.5 BP 138/86 Blood Pressure Location Lt brachial Position Sitting Pulse 80 Pulse Source Pulse Oximeter Pulse Oximetry (%) 98 Oxygen Delivery Method Room Air Intake Visit Reasons: [place] [facility] [place] chest pain Armor Reconnaissance Specialist Required: Yes Accompanied by: Self / Same As Patient Allergies oxycodone [From Percocet] Allergy (Intermediate, Verified 12/29/24 11:28) Agitated morphine Adverse Reaction (Verified 12/29/24 11:28) Agitated Tobacco use date assessed: 12/29/24 Fall risk assessment: No Falls in past year Last assessed Fall Risk: 12/29/24 Dental Screening Dental Screen Date: 12/29/24 Did you have a dental visit in the last 12 months?: No Did you have a dental problem in the last 6 months where you did not have access to dental care?: No Was dental information given to patient?: No HPI TCM TCM Information Date of Discharge 12/22/24 Discharged From [facility] Interactive Contact Date (Reference documentation from this date) 12/25/24 HPI Comments History of Present Illness Details 79 y/o female patient who presents to the clinic for TCM. Pmhx significant for hypertension, CVA, paroxysmal AFib on Eliquis, CAD, prior lower GI bleed due to diverticulitis, cognitive impairment who [place] [facility] with complaints of palpitations and chest pressure. She was admitted on 12/21 - 12/22 for Type 2 NSTEMI due to demand from NSVT. Echocardiogram was obtained which showed no wall motion abnormality. Today during the visit Pt appears to be lethargic and unable to carry on a conversation. When asked she reported that she took a new medication that was prescribed for her Memory . Reports that usually this medication makes her feel sick to stomach and feels weak. Advised Pt to go to the Emergency room for further evaluation of her symptoms. Per Chart review, there Rx for Donezepil that was prescribed few years ago - not clear if Patient is referring to this medication on Not. [facility] Medical History (Updated 12/25/24 @ 12:06 by Yeny Rosenthal MD) Colitis Schatzki's ring Depression Hypersomnia Snoring Cognitive impairment History of CVA (cerebrovascular accident) Afib Acute CVA (cerebrovascular accident) IBS (irritable bowel syndrome) Abdominal hyperesthesia Dyspepsia Osteoarthritis of lumbar spine Scoliosis GERD (gastroesophageal reflux disease) HTN (hypertension) Surgical History Status post ablation of incompetent vein using laser (06/12/22) Hx of hysterectomy H/O oophorectomy H/O bilateral breast reduction surgery Family History Son HTN (hypertension) Father No problems noted. Mother No problems noted. Social History Household Members: Other Household Members Other:: Grandson Housing: Condominium Are you a primary child care supervisor to a significant other at home: No Do you presently have visiting nurse or other home services: No Alcohol intake: never Patient Tobacco Use Status: Never used Tobacco e-Cigarette/Vaping Use: Never Used Second Hand Smoke Exposure: No Advance Directives Date on File: 08/13/21 service: No Current occupational status: disabled Cognitive needs: No Hearing needs: No Vision needs: Yes (Glasses) Questionnaire PHQ-9 Over the last 2 weeks, how often have you been bothered by any of the following problems? 1. Little interest or pleasure in doing things: not at all 2. Feeling down, depressed, or hopeless: not at all 3. Trouble falling or staying asleep, or sleeping too much: not at all 4. Feeling tired or having little energy: not at all 5. Poor appetite or overeating: not at all 6. Feeling bad about yourself - or that you are a failure or have let yourself or your family down: not at all 7. Trouble concentrating on things, such as reading the newspaper or watching television: not at all 8. Moving or speaking so slowly that other people could have noticed. Or the opposite - being so fidgety or restless that you have been moving around a lot more than usual: not at all 9. Thoughts that you would be better off or of hurting yourself in some way: not at all Total score: 0 Depression Screening Interpretation: Negative Depression Screening Done: Yes [id number] - PHQ-9 Billing: Yes Source: Developed by Drs. Jacinto Yee, Lucia Garcia, Rigoberto Love and colleagues, with an educational jovani from [employer]. Thrive Questionnaire Date Thrive assessed: 12/29/24 I am a: Patient What is your living situation today?: I have a steady place to live Within the past 12 months, did the food you bought not last and you didn't have the money to get more?: Never true Within the past 12 months, did you worry whether your food would run out before you got money to buy more?: Never true Do you have trouble paying for medicines?: No Do you have trouble getting transportation to medical appointments?: No Do you have trouble paying your heating and electricity bill?: No Do you have trouble taking care of your child, family member or friend?: No Do you have trouble with day-to-day activities such as bathing, preparing meals, shopping, managing finances, etc.?: No Are you currently unemployed and looking for a job?: No Are you interested in more education?: No Please select the resources that you would like help with: None Currently or been in a relationship where the following occur: No concerns reported THRIVE Score: 0 AUDIT C Alcohol Use Questionnaire (AUDIT-C) 1. How often do you have a drink containing alcohol?: Never 3. How often do you have six or more drinks on one occasion?: Never Total Score: 0 Score Reviewed/Action Taken: No SINCERE-7 AMB Questionnaire SINCERE-7 Date SINCERE - 7 assessed: 12/29/24 Feeling nervous, anxious, or on edge: 0 = Not at all Not being able to stop or control worryin = Not at all Worrying too much about different things: 0 = Not at all Trouble relaxin = Not at all Being so restless that it is hard to sit still: 0 = Not at all Becoming easily annoyed or irritable: 0 = Not at all Feeling afraid as if something awful might happen: 0 = Not at all Total SINCERE-7 score (0-4 normal; 5-9 mild; 10-14 moderate; 15-21 severe): 0 Source: Developed by Lucia Baugh, Rigoberto Love and colleagues, with an educational jovani from [employer]. SINCERE-7 Assessment Billing SINCERE-7 Assessment Tool: SINCERE-7 Assessment 42175 Review of Systems Const All systems reviewed & are unremarkable except as noted in HPI and below Physical exam (Primary Care) Vital Signs: Last Vital Signs Pulse 80 12/29/24 11:26 BP 138/86 12/29/24 11:26 Pulse Ox 98 12/29/24 11:26 Oxygen Delivery Method Room Air 12/29/24 11:26 BMI result Body Mass Index 27.5 Tobacco/Smoking Status: Tobacco use Status Tobacco use date assessed 12/29/24 12/29/24 11:34 Patient Tobacco Use Status Never used Tobacco 12/29/24 11:34 e-Cigarette/Vaping Use Never Used 12/29/24 11:34 PHQ-9: PHQ-9 Score PHQ-9: Total score 0 12/29/24 11:37 Depression Screening Interpretation: Negative Thrive Assessment: Date of Thrive Assessment Date Thrive assessed 12/29/24 12/29/24 11:34 Currently or been in a relationship where the following occur: No concerns reported Const Other: Patient appears to be very sleepy, unable to stay awake. Appears to be in pain. General: cooperative and ill appearing Resp Effort & Inspection: normal respiratory effort and able to speak in complete sentences Auscultation: clear to auscultation bilaterally Cardio Heart sounds: S1 normal heart sound present and S2 normal heart sound present Neuro General: gait normal and moves all extremities Psych Speech and movement: Normal speech and movement present Coding Level of Care Code Est Pt Level 4 (24856) Diagnoses NSTEMI (non-ST elevated myocardial infarction) I21.4 SVT (supraventricular tachycardia) I47.10 Additional Codes SINCERE-7 Assessment Billing - SINCERE-7 Assessment Tool: SINCERE-7 Assessment 89483 ([id number]) PHQ-9 - 78984 - PHQ-9 Billing: Yes ([id number]) Time Spent (min) 20 Assessment & Plan Assessment & Plan (1) NSTEMI (non-ST elevated myocardial infarction): Code(s): I21.4 - Non-ST elevation (NSTEMI) myocardial infarction Category: Medical Plan: Managed by Cardiology. (2) SVT (supraventricular tachycardia): Code(s): I47.10 - Supraventricular tachycardia, unspecified Category: Medical Plan: Managed by Cardiology. Plan Advised Pt to go to ED for further evaluation and testing for her current condition. It is not clear if her symptoms today are caused by medication side effects or underlining Acute condition.
== END 2024-12-29 12:46 | disposition home or self-care (01) ==
LOC: HO.HMCH 10:33
PROVIDERS: PCP Internal Medicine; Visit Provider Nurse Practitioner Family
DX: I21.4 Non-ST elevation (NSTEMI) myocardial infarction (principal); I47.10 Supraventricular tachycardia, unspecified

== ENCOUNTER 2024-12-29 11:57 | Emergency (ER) | payer OTHER, SELFPAY ==
[2024-12-29 12:07] VITALS: BP 142/85; PULSE 77; RESP 18; TEMP 36.4; O2SAT 100; BMI 26.4
--- NOTE | 2024-12-29 12:12 | ED.GENADULT ---
HPI - General Adult General Chief complaint: Allergic Reaction Stated complaint: reaction to new meds Time Seen by Provider: 12/29/24 14:30 Source: patient Mode of arrival: ambulatory Limitations: no limitations History of Present Illness ED Provider: JANES Rivas HPI narrative: This is a 79-year-old female past medical history significant for NSTEMI, SVT, Schatzki ring, CAD, depression, GERD, lymphedema, asthma, hypertension, lumbar radiculopathy, paroxysmal atrial fibrillation on anticoagulation, vertigo, monoclonal gammopathy who presents to the emergency department with anxiety and nauseousness after starting aricept 3 days ago. No SI or HI. No racing thoughts. Denies cp, sob, fevers, chills, headache, vision changes, dizziness, abd pain, vomiting, changes in urinary or bowel habits Related Data Home Medications ?Medication ?Instructions ?Recorded ?Confirmed donepezil 10 mg tablet 10 mg PO DAILY 08/09/23 12/25/24 budesonide 0.5 mg/2 mL suspension 0.5 mg inhalation BID 12/21/24 12/25/24 for nebulization memantine 5 mg tablet 5 mg PO BID 12/21/24 12/25/24 Previous Rx's ?Medication ?Instructions ?Recorded compress.stocking,knee,reg,med #2 02/26/22 Grab bar #2 12/29/22 Shower Chair #1 12/29/22 handheld showerhead #1 12/29/22 incontinence pads #240 12/29/22 toilet frame #1 12/29/22 underpads (Bed Underpads) #100 12/29/22 walker (Ultra-Light Rollator misc) #1 12/29/22 apixaban 5 mg tablet (Eliquis) 5 mg PO BID #60 tabs 10/06/23 calcium 500 mg (as 1 tab PO BID 90 days #180 tabs 07/12/24 carbonate)-vitamin D3 10 mcg (400 unit) tablet (Calcium 500 With D) atorvastatin 40 mg tablet 40 mg PO BEDTIME #90 tabs 07/13/24 lisinopril 40 mg tablet 40 mg PO DAILY #90 tabs 07/23/24 metoprolol succinate 50 mg 50 mg PO BID #180 tabs 07/27/24 tablet,extended release 24 hr famotidine 40 mg tablet 40 mg PO BEDTIME #90 tabs 08/21/24 ipratropium 0.5 mg-albuterol 3 mg 3 ml inhalation DAILY 30 days #90 10/02/24 (2.5 mg base)/3 mL nebulization mL soln esomeprazole magnesium 40 mg 40 mg PO DAILY #90 caps 12/04/24 capsule,delayed release (Nexium) ondansetron HCl 4 mg tablet 4 mg PO Q8H PRN nausea and 12/29/24 vomiting #5 tabs Allergies Allergy/AdvReac Type Severity Reaction Status Date / Time oxycodone [From Percocet] Allergy Intermediate Agitated Verified 12/29/24 12:15 morphine AdvReac Agitated Verified 12/29/24 12:15 Review of Systems Review of Systems: Yes all other systems are reviewed and are negative [facility] Past Medical History Attestation statement: The following information was validated with the patient. Source: old records reviewed and nursing notes reviewed Medical History Colitis Schatzki's ring Depression Hypersomnia Snoring Cognitive impairment History of CVA (cerebrovascular accident) Afib Acute CVA (cerebrovascular accident) IBS (irritable bowel syndrome) Abdominal hyperesthesia Dyspepsia Osteoarthritis of lumbar spine Scoliosis GERD (gastroesophageal reflux disease) HTN (hypertension) Surgical History Status post ablation of incompetent vein using laser (06/12/22) Hx of hysterectomy H/O oophorectomy H/O bilateral breast reduction surgery Family History Family History Son HTN (hypertension) Father No problems noted. Mother No problems noted. Social History Social History Household Members: Other Household Members Other:: Grandson Housing: Condominium Are you a primary healthcare social worker to a significant other at home: No Do you presently have visiting nurse or other home services: No Alcohol intake: never Patient Tobacco Use Status: Never used Tobacco e-Cigarette/Vaping Use: Never Used Second Hand Smoke Exposure: No Advance Directives: Yes Advance Directives on File: Yes Advance Directives Date on File: 08/13/21 service: No Current occupational status: disabled Cognitive needs: No Hearing needs: No Vision needs: Yes (Glasses) Physical Exam ED Vital Signs: Vital Signs - 24 hr 12/29/24 12:07 Temperature 97.6 F Pulse Rate 77 Respiratory Rate 18 Blood Pressure 142/85 H Pulse Oximetry 100 Oxygen Delivery Method Room Air BMI result Body Mass Index 26.4 vss Appearance: Alert.? Oriented X3.? No acute distress.? Head: Normocephalic, atraumatic, no step-offs or deformities Eyes: Pupils equal, round and reactive to light.? Neck: Normal inspection.? Neck supple.? CVS: Normal heart rate and rhythm.? Pulses normal.? Respiratory: No respiratory distress.? Breath sounds normal.? Abdomen: Soft and nontender.? Skin: Skin warm and dry.? Normal skin color.? Normal skin turgor.? Extremities: No lower extremity edema.? No calf ttp. 5/5 strength to bilateral upper and lower extremities Back: No midline tenderness, no C-spine tenderness, full range of motion, no CVA tenderness bilaterally Neuro: Oriented X 3.? No motor deficit.? No sensory deficit. CN 2-12 intact Course Reevaluation(s) Reevaluation #1: CBC unremarkable. UA with no acute findings needing intervention. BUN and creatinine mildly elevated at baseline however no acute findings. Transaminases with slight elevation however this is patient's baseline. UA with no acute findings Time: 14:40 Reevaluation #2: Troponin negative, EKG nonischemic. Patient feeling fine. I advised her to stop this new medicine this is likely causing her symptoms. Advised her to follow up with her PCP. Educated patient on diagnosis and treatment plan, answered all question, patient verbalizes understanding. At this time patient will be discharged home, advised to return with new or worsening symptoms. Educated on worrisome signs and symptoms and when to return. At this time I feel comfortable discharge home. Time: 15:22 Medical Decision Making Medical Decision Making MDM Narrative: 79-year-old female presents with anxiety and nausea status post starting Aricept PE benign History and physical exam concerning for medication adverse effect/side effect. I do not suspect acute intra-abdominal etiologies, acute abdomen, obstruction, diverticulitis, pancreatitis, appendicitis, cholecystitis. No associated vomiting patient is still eating and drinking therefore low suspicion for metabolic derangements however will rule out. Plan will obtain basic labs and EKG to check QTC. Differential Diagnosis Differential Diagnoses: The differential diagnosis associated with the presentation includes ( History and physical exam concerning for medication adverse effect/side effect. I do not suspect acute intra-abdominal etiologies, acute abdomen, obstruction, diverticulitis, pancreatitis, appendicitis, cholecystitis. No associated vomiting patient is still eating and drinking therefore low suspi) Admission/Observation Consideration of admission/observation: Escalation of care including admission/observation considered Lab Data 12/29/24 12:30 12/29/24 12:30 Labs: Lab Results 12/29/24 Range/Units 12:30 WBC 7.0 (4.8-10.8) X10*3/uL RBC 4.31 (4.20-5.50) X10*6/uL Hgb 12.9 (12.0-16.0) g/dl Hct 38.5 (37.0-47.0) % MCV 89.3 (80.0-98.0) fL MCH 29.9 (27.0-33.0) pg MCHC 33.5 (31.0-35.0) g/dl RDW 12.5 (11.0-16.0) % Plt Count 195 (160-400) X10*3/uL MPV 10.9 (9.4-12.3) fL Immature Gran % (Auto) 0.3 (0.0-0.4) % Neut % (Auto) 77.8 H (45-73) % Lymph % (Auto) 13.9 L (20-40) % Potter % (Auto) 5.6 (2-11) % Eos % (Auto) 2.3 (0-4) % Baso % (Auto) 0.1 (0-2) % Lymph # (Auto) 1.0 L (1.2-4.9) X10*3/uL Potter # (Auto) 0.4 (0.1-1.2) X10*3/uL Eos # (Auto) 0.2 (0.0-0.4) X10*3/uL Baso # (Auto) 0.0 (0.0-0.2) X10*3/uL Abs Immat Gran (auto) 0.02 (0.00-0.03) X10*3/uL Absolute Neuts (auto) 5.4 (2.0-8.3) x10*3/uL Absolute Nucleated RBC 0.000 (0.0-0.012) X10*3/uL Nucleated RBC % (auto) 0.0 (0.0-0.2) /100WBC Sodium 142 (135-145) mmol/L Potassium 3.5 (3.3-5.1) mmol/L Chloride 110 H (96-108) mmol/L Carbon Dioxide 28 (22-29) mmol/L Anion Gap 8 L (12-20) BUN 21 H (9-16) mg/dL Creatinine 0.71 (0.5-1.4) mg/dL Estim Creat Clear Calc 63.6 Estimated GFR > 60 Random Glucose 103 (60-115) mg/dL Calcium 9.4 (8.4-10.2) mg/dL Magnesium 1.8 (1.6-2.6) mg/dL Total Bilirubin 0.3 (0.0-1.0) mg/dL AST 39 H (5-31) U/L ALT 84 H (0-31) U/L Alkaline Phosphatase 79 (39-117) U/L Troponin I High Sens < 2.7 D (<3.5-17.0) ng/L Total Protein 7.1 (6.5-8.0) g/dL Albumin 3.9 (3.5-5.0) g/dL Lipase 20 (8-78) U/L Urine Color Yellow Urine Appearance Clear Urine pH 7.0 (5.0-9.0) Ur Specific [place] 1.020 (1.005-1.025) Urine Protein Trace (Neg-Trace) mg/dL Urine Glucose (UA) Negative (Negative) mg/dL Urine Ketones Negative (Negative) mg/dL Urine Blood Negative (Negative) Urine Nitrite Negative (Negative) Ur Leukocyte Esterase Small (1+) H (Negative) Urine RBC 0-2 (0-2) /HPF Urine WBC 0-5 (0-5) /HPF Ur Squamous Epith Cells 0-2 (0-2) /HPF Calcium Oxalate Crystal Present Urine Bacteria None Seen (None Seen) Hyaline Casts 0-2 (0-2) /LPF Critical Care Time Critical Care Time Critical Care Time: No Discharge Plan Discharge Clinical Impression: Nausea & vomiting, Adverse effects of medication Patient Disposition: Home, Self-Care Instructions: Acute Nausea and Vomiting (ED) Additional Instructions: Take your medications as prescribed. If you were prescribed antibiotics today, it is important that you take your medication to their entirety, do not skip any doses, do not finish them early. Follow-up with your primary care provider this week. Return to the emergency department with new or worsening symptoms. Such as fevers, chills, chest pain, shortness of breath, nausea, vomiting, dizziness, headache, vision changes, lethargy In case of emergency call 911 Please stop your aricept this is likely causing your symptoms Prescriptions: New ondansetron HCl 4 mg tablet 4 mg PO Q8H PRN (Reason: nausea and vomiting) Qty: 5 0RF No Action (DME) compress.stocking,knee,reg,med Misc See Rx Instructions .Route Qty: 2 0RF Rx Instructions: As directed (DME) Shower Chair Misc See Rx Instructions .Route Qty: 1 0RF Rx Instructions: As directed (DME) Grab bar Misc See Rx Instructions .Route Qty: 2 0RF Rx Instructions: As directed (DME) toilet frame See Rx Instructions .Route .MEDSUPPLY Qty: 1 0RF Rx Instructions: As directed (DME) handheld showerhead See Rx Instructions .Route .MEDSUPPLY Qty: 1 0RF Rx Instructions: As directed (DME) Ultra-Light Rollator Misc See Rx Instructions .Route Qty: 1 0RF Rx Instructions: As directed (DME) underpads [Bed Underpads] Pad See Rx Instructions .Route Qty: 100 6RF Rx Instructions: As directed (DME) incontinence pads regular See Rx Instructions .Route .MEDSUPPLY Qty: 240 6RF Rx Instructions: As directed Eliquis 5 mg tablet 5 mg PO BID Qty: 60 7RF calcium carbonate-vitamin D3 [Calcium 500 With D] 500 mg-10 mcg (400 unit) tablet 1 tab PO BID 90 Days Qty: 180 2RF atorvastatin 40 mg tablet 40 mg PO BEDTIME Qty: 90 1RF lisinopril 40 mg tablet 40 mg PO DAILY Qty: 90 3RF metoprolol succinate 50 mg tablet extended release 24 hr 50 mg PO BID Qty: 180 1RF famotidine 40 mg tablet 40 mg PO BEDTIME Qty: 90 1RF ipratropium-albuterol 0.5 mg-3 mg(2.5 mg base)/3 mL solution for nebulization 3 ml inhalation DAILY 30 Days Qty: 90 0RF donepezil 10 mg tablet 10 mg PO DAILY memantine 5 mg Tablet 5 mg PO BID budesonide 0.5 mg/2 mL suspension for nebulization 0.5 mg inhalation BID esomeprazole magnesium [Nexium] 40 mg capsule,delayed release(DR/EC) 40 mg PO DAILY Qty: 90 5RF Referrals: Yeny Bay MD [Primary Care Provider] - 2 days Stand Alone Forms: Work/School Release Print Language: [place]
--- NOTE | 2024-12-29 12:13 | ECG_ITS ---
Test Reason : sob Blood Pressure : */* mmHG Vent. Rate : 85 BPM Atrial Rate : 85 BPM P-R Int : 192 ms QRS Dur : 86 ms QT Int : 418 ms P-R-T Axes : 47 9 31 degrees QTcB Int : 497 ms Normal sinus rhythm Possible Left atrial enlargement Prolonged QT Abnormal ECG When compared with ECG of 21-Dec-2024 12:48, Nonspecific T wave abnormality now evident in Anterior leads Referred By: Tyshawn Rudolph Electronically Signed By: IRVIN NICOLAS MD
[2024-12-29 12:36] LABS: MANUAL DIFF FLAG NO
[2024-12-29 12:37] LABS: Basophils Percent Auto 0.1 % (0-2); Eosinophils Absolute Auto 0.2 X10*3/uL (0.0-0.4); Eosinophils Percent Auto 2.3 % (0-4); Hematocrit 38.5 % (37.0-47.0); Hemoglobin 12.9 g/dl (12.0-16.0); Imm Gran Abs Auto 0.02 X10*3/uL (0.00-0.03); Imm Gran Pct Auto 0.3 % (0.0-0.4); Lymphocytes Percent Auto 13.9 % (20-40); Mean Corpuscular HGB Conc 33.5 g/dl (31.0-35.0); Mean Corpuscular Hemoglobin 29.9 pg (27.0-33.0); Mean Corpuscular Volume 89.3 fL (80.0-98.0); Mean Platelet Volume 10.9 fL (9.4-12.3); Monocytes Absolute Auto 0.4 X10*3/uL (0.1-1.2); Monocytes Percent Auto 5.6 % (2-11); Neutrophils Absolute Auto 5.4 x10*3/uL (2.0-8.3); Neutrophils Percent Auto 77.8 % (45-73); Platelet Count 195 X10*3/uL (160-400); Red Blood Count 4.31 X10*6/uL (4.20-5.50); Red Cell Distribution Width 12.5 % (11.0-16.0)
[2024-12-29 12:42] LABS: Appearance Urine Clear; Color Urine Yellow; Glucose Urine UA Negative (Negative); Leukocyte Esterase Urine Small (1+) (Negative); Nitrite Urine Negative (Negative); UMIC TRIGGER UACC YES; Urine Blood Negative (Negative); Urine Ketones Negative (Negative); Urine Protein Trace mg/dL (Neg-Trace)
[2024-12-29 12:52] LABS: Alanine Aminotransferase 84 U/L (0-31); Albumin Level 3.9 g/dL (3.5-5.0); Alkaline Phosphatase 79 U/L (39-117); Anion Gap 8 (12-20); Aspartate Amino Transferase 39 U/L (5-31); Bilirubin Total 0.3 mg/dL (0.0-1.0); Blood Urea Nitrogen 21 mg/dL (9-16); Calcium 9.4 mg/dL (8.4-10.2); Carbon Dioxide 28 mmol/L (22-29); Chloride 110 mmol/L (96-108); Creatinine Clr Calc Pharmacy 63.6; Estimated Glomerular Filt Rate > 60; Glucose Random 103 mg/dL (60-115); Lipase 20 U/L (8-78); Magnesium 1.8 mg/dL (1.6-2.6); Potassium 3.5 mmol/L (3.3-5.1); Sodium 142 mmol/L (135-145); Total Protein 7.1 g/dL (6.5-8.0)
[2024-12-29 12:55] LABS: Bacteria Urine None Seen (None Seen); Calcium Oxalate Crystals Urine Present; Hyaline Casts Urine 0-2 /LPF (0-2); RBC Urine 0-2 /HPF (0-2); Squamous Epithelial Cell Urine 0-2 /HPF (0-2); UACC Culture Trigger YES; WBC Urine 0-5 /HPF (0-5)
[2024-12-29 15:19] LABS: Troponin-I High Sensitivity < 2.7 ng/L (<3.5-17.0)
[2024-12-29] MEDS: Ondansetron ODT 4 MG TAB.RAPDIS TRANSLINGU (15:40)
[2024-12-29 15:41] VITALS: BP 144/77; PULSE 80; RESP 18; TEMP 36.6; O2SAT 98
== END 2024-12-29 15:43 | disposition home or self-care (01) ==
PROVIDERS: Physician Assistant; Emergency Provider Emergency Medicine; PCP Internal Medicine
DX: R11.2 Nausea with vomiting, unspecified (principal); T44.1X5A Adverse effect of other parasympathomimetics [cholinergics], initial encounter; Y92.9 Unspecified place or not applicable; R06.02 Shortness of breath; F41.9 Anxiety disorder, unspecified; J45.909 Unspecified asthma, uncomplicated; Z79.01 Long term (current) use of anticoagulants; Z79.02 Long term (current) use of antithrombotics/antiplatelets; Z79.899 Other long term (current) drug therapy; I21.4 Non-ST elevation (NSTEMI) myocardial infarction; I47.10 Supraventricular tachycardia, unspecified
CPT/HCPCS: 36415; 80053; 81001; 83690; 83735; 84484; 85025; 87086; 93005; 96127; 99283; 99496

== ENCOUNTER → 2024-12-29 12:13 | Outpatient (BNV) | payer OTHER, SELFPAY | PROVIDERS: Visit Provider Internal Medicine Cardiovascular Disease | DX: R94.31 Abnormal electrocardiogram [ECG] [EKG] (principal); R06.02 Shortness of breath | CPT/HCPCS: 93010 ==

== ENCOUNTER 2025-03-06 07:37 | Outpatient (AMB) | payer OTHER, SELFPAY ==
--- OUTSIDE RECORDS SUMMARY | 2025-03-06 07:40 | XMS_ITS ---
Author Name Hannah Jain NP Address [address] [place] [address] Phone [phone] [facility] Care Team Providers Care Wire Coating Operator Metal Name Role Phone Hannah Jain Unavailable [phone] Unavailable Unavailable [phone] Unavailable Unavailable [phone] Reason for Referral Not Available Allergies, adverse reactions, alerts Allergen Type Reaction Severity Status Onset Date Oxycodone Allergy to substance (disorder) Hives Unknown Active N/A History of medication use Medication Class Instructions Start Date End Date Lisinopril 40 mg Tab take 1 tablet by mo ksh daily 2022-02-10 No Data Available Eliquis 5 mg Tab TAKE 1 TABLET BY FOUZIA TH TWICE A DAY 2021-09-16 No Data Available [...] Cyclobenzaprine 5 mg Tab PLEASE SEE MINERVA CHERichard FOR DETAILED DIRECTIONS 2023-08-19 No Data Available [...] List Problem Status Onset Date Resolved Date Synopsis Insomnia Active 2022-08 N/A On Trazadone GERD (gastroesophageal reflux disease) Active 2022-10 N/A Avoid spicy, fatty or fried food, caffeine, chocolateAvoid lying down after mealsAvoid eating late at nightWill prescribe Omeprazole Chronic kidney disease, stage 3a Active 2022-10 N/A Avoid nephrotoxic medication s (NSAIDS, high dose Gabapentin, Baclofen, Fleet Enema, Morphine/Codeine). Interstitial pulmonary disease, unspecified Active 2022-10 N/A Per outside care- Follows Pu lmonology Bladder incontinence Active 2022-10 N/A Needs Disposable bed pads Chronic low back pain with sciatica Active 2022-08 N/A On Tylenol Referral to pain specialist.Continue current treatment plan as directed. Unspecified atherosclerosis of [place] arteries of extremities, unspecified extremity Active 2022-08 N/A On AtorvastatinFollows PCP C ontinue current treatment plan as directed. Seasonal allergic rhinitis Active 2022-08 N/A On Loratadine Continue curre nt treatment plan as directed. Hyperlipidemia Active 2022-08 N/A On AtorvastatinEncouraged ph ysical activityDiet low in saturated and trans fatHealthy diet, including lots of fruits and vegetablesFollows PCPContinue current treatment plan as directed. Asthma Active 2022-08 N/A On BreoFluticasoneAlbuterolF [facility] Pressroom Worker Continue current treatment plan as directed. Hypercoagulability due to atrial fibrillation Active 2022-08 N/A On EliquisFollows Cardiology Continue current treatment plan as directed. Sacroiliitis, not elsewhere classified Active 2022-08 N/A On TylenolContinue current t reatment plan as directed. Secondary hyperaldosteronism Active 2022-08 N/A heart failure and continues to take Lasix 40mg twice dailyContinue current treatment plan as directed. Dementia Active 2022-08 N/A On MemantineFollows up with a Neurologist, wants a second opinion Continue current treatment plan as directed. Heart failure, unspecified Active 2022-08 N/A On FurosemideMetoprololFollo ws a Manager Reimbursement, will monitor edema and weight. Continue current treatment plan as directed. F/u with Cardiology q 6 month Hypertension Active 2022-08 N/A On AmlodipineLisinoprilMetoprololEncouraged low salt dietFollows PCP/CardiologyContinue current treatment plan as directed. Had a f/u appt. with PCP last month 03/23. Chronic obstructive pulmonary disease, unspecified Active 2022-08 N/A continues to take ProAir and BreoEllipta prn. Continue current treatment plan as directed. Denies sob or wheezing. 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 Why are they most likely to go back? Please call [facility] if you have a change in condition, Blood pressure > 170/90 Fall, any unusual symptoms or have any medical questions! Incontinence Active 2024-01 N/A Skin care BID I have assesse d this patient and determined her medical necessity for protective incontinence products as a result of mixed urinary Incontinence. Therefore, I am prescribing pull-ups. Use skin barrier cream to decrease moisture to skin Major depressive disorder, recurrent, moderate Active 2024-05 -01 N/A continues sertraline dailypr eviously diagnosedPHQ 9 score routinely Encounters Encounters Type Facility Date of Service Diagnosis/Co mplaint New patient,40-59min; chronic exacerbation, 2 stable chronic or 1 acute illness add add modifier 95 for video (do not use for phone, instead use 56110-12) [facility], ([place] 08/07/2022 Hypertensive heart disease w ith heart failureHeart failure, unspecifiedSacroiliitis, not elsewhere classifiedOther thrombophiliaUnspecified atrial fibrillationUnspecified asthma, uncomplicatedInsomnia, unspecifiedHyperlipidemia, unspecifiedUnspecified dementia without behavioral disturbanceOther seasonal allergic rhinitisUnsp athscl [place] arteries of extremities, unsp extremityLumbago with sciatica, unspecified sideOther chronic painSecondary hyperaldosteronismChronic obstructive pulmonary disease, unspecified New patient,40-59min; chronic exacerbation, 2 stable chronic or 1 acute illness add add modifier 95 for video (do not use for phone, instead use 11367-07) [facility] ([place] 08[place] New patient,40-59min; chronic exacerbation, 2 stable chronic or 1 acute illness add add modifier 95 for video (do not use for phone, instead use 84845-08) [facility] [place] New patient,40-59min; chronic exacerbation, 2 stable chronic or 1 acute illness add add modifier 95 for video (do not use for phone, instead use 09278-28) [facility] [place] New patient,40-59min; chronic exacerbation, 2 stable chronic or 1 acute illness add add modifier 95 for video (do not use for phone, instead use 95215-64) [facility] [place] New patient,40-59min; chronic exacerbation, 2 stable chronic or 1 acute illness add add modifier 95 for video (do not use for phone, instead use 26292-15) [facility] [place] New patient,40-59min; chronic exacerbation, 2 stable chronic or 1 acute illness add add modifier 95 for video (do not use for phone, instead use 27023-22) [facility] [place] [facility] Heart failure, unspecifiedUnspecified asthma, uncomplicatedHyperlipidemia, unspecifiedChronic obstructive pulmonary disease, unspecifiedHypertensive heart disease with heart failure Estab. patient 30-39min; chronic exacerbation, 2 stable chronic or 1 acute illness add add modifier 95 for video, (do not use for phone, instead use 65576-84) [facility] [place]20[place] Heart failure, unspecifiedSacroiliitis, not elsewhere classifiedOther thrombophiliaUnspecified atrial fibrillationUnspecified asthma, uncomplicatedHyp hrt & chr kdny dis w hrt fail and stg 1-4/unsp chr kdnyInsomnia, unspecifiedHyperlipidemia, unspecifiedUnspecified dementia without behavioral disturbanceOther seasonal allergic rhinitisUnsp athscl [place] arteries of extremities, unsp extremityLumbago with sciatica, unspecified sideOther chronic painSecondary hyperaldosteronismChronic obstructive pulmonary disease, unspecifiedGastro-esophageal reflux disease without esophagitisChronic kidney disease, stage 3aInterstitial pulmonary disease, unspecifiedUnspecified urinary incontinenceOther forms of acute ischemic heart disease Estab. patient 30-39min; chronic exacerbation, 2 stable chronic or 1 acute illness add add modifier 95 for video, (do not use for phone, instead use 69964-32) [facility] [place] Estab. patient 30-39min; chronic exacerbation, 2 stable chronic or 1 acute illness add add modifier 95 for video, (do not use for phone, instead use 85650-28) [facility] [place] Estab. patient 30-39min; chronic exacerbation, 2 stable chronic or 1 acute illness add add modifier 95 for video, (do not use for phone, instead use 36549-69) [facility] Estab. patient 30-39min; chronic exacerbation, 2 stable chronic or 1 acute illness add add modifier 95 for video, (do not use for phone, instead use 37695-57) [facility] Estab. patient 30-39min; chronic exacerbation, 2 stable chronic or 1 acute illness add add modifier 95 for video, (do not use for phone, instead use 14279-06) [facility] ([place]) 10[place]/20[place] Estab. patient 30-39min; chronic exacerbation, 2 stable chronic or 1 acute illness add add modifier 95 for video, (do not use for phone, instead use 01999-49) [facility] ([place] [facility] [place]20[place] Chronic obstructive pulmonar y disease, unspecifiedHypertensive heart disease with heart failureHeart failure, unspecified No Data Available [facility] [place]20[place] Heart failure, unspecifiedSacroiliitis, not elsewhere classifiedOther thrombophiliaUnspecified atrial fibrillationUnspecified asthma, uncomplicatedHyp hrt & chr kdny dis w hrt fail and stg 1-4/unsp chr kdnyInsomnia, unspecifiedHyperlipidemia, unspecifiedUnspecified dementia without behavioral disturbanceOther seasonal allergic rhinitisUnsp athscl [place] arteries of extremities, unsp extremityLumbago with sciatica, unspecified sideOther chronic painSecondary hyperaldosteronismChronic obstructive pulmonary disease, unspecifiedGastro-esophageal reflux disease without esophagitisChronic kidney disease, stage 3aInterstitial pulmonary disease, unspecifiedUnspecified urinary incontinenceOther forms of acute ischemic heart disease No Data Available [facility] [facility] [facility] [facility] [facility] [facility]20[place] Hyp hrt & chr kdny dis w hrt fail and stg 1-4/unsp chr kdnyHeart failure, unspecifiedChronic kidney disease, stage 3aSecondary hyperaldosteronismSacroiliitis, not elsewhere classifiedOther thrombophiliaUnspecified atrial fibrillationUnspecified asthma, uncomplicatedInsomnia, unspecifiedHyperlipidemia, unspecifiedUnspecified dementia without behavioral disturbanceOther seasonal allergic rhinitisUnsp athscl [place] arteries of extremities, unsp extremityLumbago with sciatica, unspecified sideOther chronic painChronic obstructive pulmonary disease, unspecifiedGastro-esophageal reflux disease without esophagitisInterstitial pulmonary disease, unspecifiedUnspecified urinary incontinenceOther forms of acute ischemic heart disease No Data Available [facility] ([place] 02/18/2023 No Data Available [facility] [place] 02/18[place]2023 No Data Available [facility], ([place] 02/18/2023 No Data Available [facility] [place]/18[place]2023 No Data Available [facility] [place] 02/18[place]2023 No Data Available [facility] [place] 03[place]25/2023 Hyp hrt & chr kdny dis w hrt fail and stg 1-4/unsp chr kdnyChronic kidney disease, stage 3aHeart failure, unspecifiedSacroiliitis, not elsewhere classifiedOther thrombophiliaUnspecified atrial fibrillationUnspecified asthma, uncomplicatedInsomnia, unspecifiedHyperlipidemia, unspecifiedUnspecified dementia without behavioral disturbanceOther seasonal allergic rhinitisUnsp athscl [place] arteries of extremities, bilateral legsLumbago with sciatica, unspecified sideOther chronic painSecondary hyperaldosteronismChronic obstructive pulmonary disease, unspecifiedGastro-esophageal reflux disease without esophagitisInterstitial pulmonary disease, unspecifiedUnspecified urinary incontinenceAcute ischemic heart disease, unspecified No Data Available [facility] [place] 03[place]2023 No Data Available [facility] [place] 03/[place]2023 No Data Available [facility] [place] 03/25/2023 No Data Available [facility] [place] 03/25/2023 No Data Available [facility] [place] 03/25/2023 No Data Available [facility] [place]2023 Heart failure, unspecifiedSacroiliitis, not elsewhere classifiedOther thrombophiliaUnspecified atrial fibrillationUnspecified asthma, uncomplicated No Data Available [facility] [place] 05[place] [facility] [facility] [facility] [facility] [facility] [facility] Heart failure, unspecifiedSacroiliitis, not elsewhere classifiedOther thrombophiliaUnspecified atrial fibrillationUnspecified asthma, uncomplicatedHyp hrt & chr kdny dis w hrt fail and stg 1-4/unsp chr kdnyInsomnia, unspecifiedHyperlipidemia, unspecifiedUnspecified dementia without behavioral disturbanceOther seasonal allergic rhinitisUnsp athscl [place] arteries of extremities, unsp extremityLumbago with sciatica, unspecified sideOther chronic painSecondary hyperaldosteronismChronic obstructive pulmonary disease, unspecifiedGastro-esophageal reflux disease without esophagitisChronic kidney disease, stage 3aInterstitial pulmonary disease, unspecifiedUnspecified urinary incontinenceOther forms of acute ischemic heart disease No Data Available [facility] [facility] [facility] [facility] [facility] [facility] Estab. patient 30-39min; chronic exacerbation, 2 stable chronic or 1 acute illness add add modifier 95 for video, (do not use for phone, instead use 06217-20) [facility] Heart failure, unspecifiedSacroiliitis, not elsewhere classifiedOther thrombophiliaUnspecified atrial fibrillationUnspecified asthma, uncomplicatedEssential (primary) hypertensionInsomnia, unspecifiedHyperlipidemia, unspecifiedUnspecified dementia without behavioral disturbanceOther seasonal allergic rhinitisUnsp athscl [place] arteries of extremities, unsp extremityLumbago with sciatica, [...] (do not use for phone, instead use 62799-08) [facility] ([place] 01/[place] Estab. patient 30-39min; chronic exacerbation, 2 stable chronic or 1 acute illness add add modifier 95 for video, (do not use for phone, instead use 30219-71) [facility] Estab. patient 30-39min; chronic exacerbation, 2 stable chronic or 1 acute illness add add modifier 95 for video, (do not use for phone, instead use 47379-47) [facility] [place] Estab. patient 30-39min; chronic exacerbation, 2 stable chronic or 1 acute illness add add modifier 95 for video, (do not use for phone, instead use 92152-74) [facility] [place] Estab. patient 30-39min; chronic exacerbation, 2 stable chronic or 1 acute illness add add modifier 95 for video, (do not use for phone, instead use 41256-72) [facility] [place] Estab. patient 30-39min; chronic exacerbation, 2 stable chronic or 1 acute illness add add modifier 95 for video, (do not use for phone, instead use 55715-38) [facility] [place] Estab. patient 30-39min; chronic exacerbation, 2 stable chronic or 1 acute illness add add modifier 95 for video, (do not use for phone, instead use 83494-88) [facility] [place] Estab. patient 30-39min; chronic exacerbation, 2 stable chronic or 1 acute illness add add modifier 95 for video, (do not use for phone, instead use 64592-43) [facility] [place] Estab. patient 30-39min; chronic exacerbation, 2 stable chronic or 1 acute illness add add modifier 95 for video, (do not use for phone, instead use 12453-98) [facility] ([place] 01[place]/2024 Vital Signs Date of [...] (do not use for phone, instead use 58606-15) [id number] 2022-08-07 No Data Available No Data Availa [...] le No Data Available No Data Available [id number] 2022-09-16 No Data Available No Data Available Estab. patient 30-39min; chronic exacerbation, 2 stable chronic or 1 acute illness add add modifier 95 for video, (do not use for phone, instead use 34949-93) [id number] 2022-10-22 No Data Available No Data Availa [...] No Data Miguelina ilable No Data Available [id number] 2022-12-09 No Data Available No Data Available No Data Available [id number] 2023-01-19 No Data Available No Data Available [...] No Data Availa ble No Data Available [id number] 2023-02-18 No Data Available No Data Available [...] Available No Data Available No Data Available [id number] 2023-03-25 No Data Available No Data Available [...] le No Data Available No Data Available [id number] 2023-05-11 No Data Available No Data Available [...] Available No Data Available No Data Available [id number] 2023-10-30 No Data Available No Data Available [...] (do not use for phone, instead use 22452-80) [id number] 2024-01-25 No Data Available No Data Availa [...] to atrial fibrillationAsthmaHypertensionInsomniaHyperlipidemiaDementiaSeasonal allergic rhinitisUnspecified atherosclerosis of [place] arteries of extremities, unspecified extremityChronic low back pain with sciaticaSecondary hyperaldosteronismChronic obstructive pulmonary disease, unspecified 2022-09-16 10:48:14 Heart failure, unspecified [I50.9]Asthma [J45.909]Hypertension [I10]Hyperlipidemia [E78.5]Chronic obstructive pulmonary disease, unspecified [J44.9] 2022-10-22 09:11:25 Heart failure, unspecifiedSacroiliitis, not elsewhere classifiedHypercoagulability due to atrial fibrillationAsthmaHypertensionInsomniaHyperlipidemiaDementiaSeasonal allergic rhinitisUnspecified atherosclerosis of [place] arteries of extremities, unspecified extremityChronic low back pain with sciaticaSecondary hyperaldosteronismChronic obstructive pulmonary disease, unspecifiedGERD (gastroesophageal reflux disease)Chronic kidney disease, stage 3aInterstitial pulmonary disease, unspecifiedBladder incontinenceOther forms of acute ischemic heart disease 2022-12-09 09:22:26 Chronic obstructive pulmonary disease, u nspecified [J44.9]Hypertension [I10]Heart failure, unspecified [I50.9] 2023-01-19 12:12:29 Heart failure, unspecifiedSacroiliitis, not elsewhere classifiedHypercoagulability due to atrial fibrillationAsthmaHypertensionInsomniaHyperlipidemiaDementiaSeasonal allergic rhinitisUnspecified atherosclerosis of [place] arteries of extremities, unspecified extremityChronic low back [...] ongoingSeasonal allergic rhinitis - ongoingUnspecified atherosclerosis of [place] arteries of extremities, unspecified extremity - ongoingChronic [...] ongoingSeasonal allergic rhinitis - ongoingUnspecified atherosclerosis of [place] arteries of extremities, unspecified extremity - ongoingChronic [...] to atrial fibrillationAsthmaHypertensionInsomniaHyperlipidemiaDementiaSeasonal allergic rhinitisUnspecified atherosclerosis of [place] arteries of extremities, unspecified extremityChronic low back [...] to atrial fibrillationAsthmaHypertensionInsomniaHyperlipidemiaDementiaSeasonal allergic rhinitisUnspecified atherosclerosis of [place] arteries of extremities, unspecified extremityChronic low back [...] education needs that may arise.On FurosemideMetoprololFollows a Manager Reimbursement, will monitor edema and weight.On TylenolOn EliquisOn [...] failure, unspe cified [I50.9]> On FurosemideMetoprololFollows a Manager Reimbursement, will monitor edema and weight.Asthma [J45.909]> On [...] education needs that may arise.On FurosemideMetoprololFollows a Manager Reimbursement, will monitor edema and weight.10/22/22: Continue current [...] 11/26.Heart failure, unspecified [I50.9]> On FurosemideMetoprololFollows a Manager Reimbursement, will monitor edema and weight.10/22/22: Continue current [...] needs that may arise 26/04.On FurosemideMetoprololFollows a Manager Reimbursement, will monitor edema and weight.10/22/22: Continue current treatment plan as directed. Continue current treatment plan as directed. F/u with Cardiology on 02/23.On TylenolContinue current treatment plan as directed.On EliquisFollows Cardiology Continue current treatment plan as directed.On BreoFluticasoneAlbuterolFollows Pressroom Worker Continue current treatment plan as directed.On AmlodipineLisinoprilMetoprololEncouraged [...] needs that may arise 26/04.On FurosemideMetoprololFollows a Manager Reimbursement, will monitor edema and weight.10/22/22: Continue current treatment plan as directed. Continue current treatment plan as directed. F/u with Cardiology on 02/23.On TylenolContinue current treatment plan as directed.On EliquisFollows Cardiology Continue current treatment plan as directed.On BreoFluticasoneAlbuterolFollows Pressroom Worker Continue current treatment plan as directed.On AmlodipineLisinoprilMetoprololEncouraged [...] modifier 95)Continue to see PCP. [facility] or disease education needs that may arise 26/04.On FurosemideMetoprololFollows a Manager Reimbursement, will monitor edema and weight.10/22/22: Continue current treatment plan as directed. Continue current treatment plan as directed. F/u with Cardiology q 6 monthOn TylenolContinue current treatment plan as directed.On EliquisFollows Cardiology Continue current treatment plan as directed.On BreoFluticasoneAlbuterolFollows Pressroom Worker Continue current treatment plan as directed.On AmlodipineLisinoprilMetoprololEncouraged [...] modifier 95)Continue to see PCP. Follow-up with [facility] as needed for any acute or disease education needs that may arise 26/04.On FurosemideMetoprololFollows a Manager Reimbursement, will monitor edema and weight. Continue current [...] needs that may arise 26/04.On FurosemideMetoprololFollows a Manager Reimbursement, will monitor edema and weight. Continue current treatment plan as directed. F/u with Cardiology q 6 monthOn TylenolContinue current treatment plan as directed.On EliquisFollows Cardiology Continue current treatment plan as directed.On BreoFluticasoneAlbuterolFollows Pressroom Worker Continue current treatment plan as directed.On AmlodipineLisinoprilMetoprololEncouraged [...] Documented ([id number])Continue to see PCP. Follow-up with [facility] as needed for any acute or disease education needs that may arise.<Add contingency plans here>Monthly follow up calls with pt CONTINGENCY PLAN Why was the member in the hospital or ER most recently? Why are they most likely to go back? Please call [facility] if you have a change in condition, Blood pressure > 170/90 Fall, any unusual symptoms or have any medical questions!On FurosemideMetoprololFollows a Manager Reimbursement, will monitor edema and weight. Continue current treatment plan as directed. F/u with Cardiology q 6 monthOn TylenolContinue current treatment plan as directed.On EliquisFollows Cardiology Continue current treatment plan as directed.On BreoFluticasoneAlbuterolFollows Pressroom Worker Continue current treatment plan as directed.On AmlodipineLisinoprilMetoprololEncouraged [...] Follows PulmonologyNeeds Disposable bed padsOn MetoprololFollows CardiologyReceives wireless communications engineer hourswalk with walker / 1 assistSkin [...] to the ER.4. Discussed how to contact [facility] via phone or tablet. 2023-02-18 1. Remember to keep all appointments with your PCP.2. Take all medication on time and try to eat healthy3. Call if you have questions or concerns before you go to the ER.4. Discussed how to contact [facility] via phone or tablet. 2023-03-25 1. Take all medicati on on time and try to eat healthy2. Call if you have questions or concerns before you go to the ER.3. Remember to keep all appointments with your PCP.4. Discussed how to contact [facility] via phone or tablet. Health Concerns Date Concern 2024-01-25 Visit completed in g audio/video. Patient/Guardian agreed to visit via telehealth. Today, patient has chief complaint of: follow up care and comprehensive review.Reviewed Allergies, Medications, Active Medical conditions, past medical/surgical history, Social history. 2024-01-25 <add details of Adva nce Care Planning conversation using .acp FastKey> Advance Care Plan and Serious Illness ConversationDate of Conversation: 01/25/2024Life Limiting Diagnosis: Diagnosis: noneCurrently on Hospice NoCode Status: YES CPR: Attempt ResuscitationGoals of Care: Curative: Attempt to sustain life by all medically effective meansNutrition goals: No decision made about nutrition today; not discussedDo you have a Durable Power of Automatic Die Cutting Machine Operator for Healthcare, or Healthcare Proxy Or Guardianship? Yes, POAIf so, Who? john Henry is hcpDo you have a written Advance Directive? Has no formal documentationOther details of discussion: (Who was present, patients description of wishes/goals)Today's plan: Advised patient to discuss wishes with [id number] : AD or surrogate was documented in the medical record. 2024-01-25 Most recent hospital stay(s) or ER visit(s) and precipitating factors: Urgent care 01/20 due to respiratory symptoms 2024-01-25 Open HEDIS Measure jl miranda: Reviewed
[2025-03-06 09:28] VITALS: BP 180/100; PULSE 68; BMI 26.8
--- NOTE | 2025-03-06 09:28 | A.OFFVIS_ITS ---
Vital Signs 03/06/25 09:28 Height 5 ft 4 in Weight 156 lb 1.396 oz BMI 26.8 BP 180/100 H Blood Pressure Location Lt brachial Position Sitting Pulse 68 Pulse Source Pulse Oximeter Intake Visit Reasons: Hospital Follow-up Mounting Machine Operator Required: Yes Mounting Machine Operator Language: Pega Developer Name: voice perez [id number] Allergies oxycodone [From Percocet] Allergy (Intermediate, Verified 03/06/25 09:33) Agitated morphine Adverse Reaction (Verified 03/06/25 09:33) Agitated Medication List - Last Reconciled 03/06/25 by Katina Morales NP-C apixaban (Eliquis) 5 mg PO BID atorvastatin 40 mg PO BEDTIME budesonide 0.5 mg (2 mL) inhalation BID calcium carbonate-vitamin D3 500 mg-10 mcg (400 unit) (Calcium 500 With D) 1 tab PO BID 90 days compress.stocking,knee,reg,med As directed donepezil 10 mg PO DAILY esomeprazole magnesium (Nexium) 40 mg PO DAILY famotidine 40 mg PO BEDTIME Grab bar As directed [handheld showerhead As directed] [incontinence pads As directed] ipratropium-albuterol 0.5 mg-3 mg(2.5 mg base)/3 mL 3 mL inhalation DAILY 30 days lisinopril 40 mg PO DAILY memantine 10 mg PO ONCE metoprolol succinate ER 50 mg PO BID ondansetron HCl 4 mg PO Q8H PRN Shower Chair As directed [toilet frame As directed] underpads (Bed Underpads) As directed walker (Ultra-Light Rollator misc) As directed HPI HPI Hospital Follow-up: Details: Becca is a 79-year-old female with past medical history of hypertension, CVA, paroxysmal atrial fibrillation, CAD who was recently admitted to [facility] with heart palpitations and found to have SVT requiring adenosine. Following that admission she was was referred to electrophysiology to discuss ablation. Today she reports she was recently admitted but a with abdominal discomfort and found to have colitis. She continues on her Eliquis without signs of bleeding. She does feel heart palpitations at times, not today. No chest discomfort, shortness of breath, lightheadedness, presyncope, syncope, PND, orthopnea or edema. Takes all meds as directed. Certified strap maker used. FOR[facility]LY [facility], [facility] Medical History Colitis Schatzki's ring Depression Hypersomnia Snoring Cognitive impairment History of CVA (cerebrovascular accident) Afib Acute CVA (cerebrovascular accident) IBS (irritable bowel syndrome) Abdominal hyperesthesia Dyspepsia Osteoarthritis of lumbar spine Scoliosis GERD (gastroesophageal reflux disease) HTN (hypertension) Surgical History Status post ablation of incompetent vein using laser (06/12/22) Hx of hysterectomy H/O oophorectomy H/O bilateral breast reduction surgery Family History Son HTN (hypertension) Father No problems noted. Mother No problems noted. Social History Household Members: Other Household Members Other:: Grandson [facility] Are you a primary rn complex care to a significant other at home: No Do you presently have visiting nurse or other home services: No Alcohol intake: never Patient Tobacco Use Status: Never used Tobacco e-Cigarette/Vaping Use: Never Used Second Hand Smoke Exposure: No Advance Directives Date on File: 08/13/21 service: No Current occupational status: disabled Cognitive needs: No Hearing needs: No Vision needs: Yes (Glasses) Review of Systems Const Details: pt reports memory issues All systems reviewed & are unremarkable except as noted in HPI and below ENT Denies dizziness Card Details: heart palpitations Denies chest pain, Denies chest pain at rest, Denies chest pain with activity, Denies rapid heart rate, Denies pedal edema, Denies edema, Denies leg edema, Denies lightheadedness, Denies palpitations, Denies dyspnea, Denies dyspnea on exertion and Denies orthopnea Resp Denies cough, Denies dyspnea and Denies dyspnea on exertion GI Denies hematochezia and Denies change in stool character Musc Denies abnormal gait, Reports limited range of motion, Reports muscle cramps, Denies muscle weakness, Denies numbness, Denies radiating pain into limb, Denies stiffness and Denies tingling Neuro Denies abnormal gait, Denies dizziness, Denies numbness and Denies tingling Endo Denies palpitations Physical Exam Vital Signs: Last Vital Signs Pulse 68 03/06/25 09:28 BP 180/100 H 03/06/25 09:28 BMI result Body Mass Index 26.8 Const General: cooperative, healthy appearing, comfortable and no acute distress Orientation/consciousness: patient oriented x3 Neck Neck: Yes normal visual inspection Resp Effort & Inspection: normal respiratory effort Auscultation: clear to auscultation bilaterally, no rales, no rhonchi and no wheezes Cardio Rate: regular rate Rhythm: regular rhythm Heart sounds: S1 normal heart sound present, S2 normal heart sound present, no gallops, no murmurs and no rubs GI Inspection: Yes normal to inspection Neuro General: patient oriented x3 Extrem General: Yes normal to inspection, No no pedal edema and No calf tenderness Psych Appearance: grossly normal Mental Status: mental status grossly normal Speech and movement: Normal speech and movement present Assessment & Plan Assessment & Plan (1) SVT (supraventricular tachycardia): Code(s): I47.10 - Supraventricular tachycardia, unspecified Category: Medical Plan: [facility] admission 12/2024 with palpitations and found to have SVT requiring adenosine. He has a history PAF and has been on metoprolol, currently at 50 mg b.i.d.. Echocardiogram 12/21/2024 showed EF 60-65%, normal RV size and function. She still does report intermittent heart palpitations. She has already been referred to EP and says she had 1 visit. She is going back for her procedure which sounds like ablation. Cardiology follow-up in this office post ablation. (2) PAF (paroxysmal atrial fibrillation): Code(s): I48.0 - Paroxysmal atrial fibrillation Category: Medical Plan: History of paroxysmal atrial fibrillation that is treated with rhythm control. She is on metoprolol for heart rate control. She is on Eliquis for anticoagulation. Labs 12/29/2024 shows hemoglobin 12.9, hematocrit 38.5,. Creatinine 0.71. Last Holter monitor done on 12/14/2023 for 2.5 days shows sinus rhythm with average heart rate 75, no AFib. Last EKG 12/29/2024 showing normal sinus rhythm, rate 85. She does report intermittent palpitations which could be SVT or PAF. She is pursuing ablation for the SVT. Reviewed the diagnosis of atrial fibrillation, stroke risk with AFib. (3) CAD (coronary artery disease): Code(s): I25.10 - Atherosclerotic heart disease of [place] coronary artery without angina pectoris Category: Medical Plan: Notes indicate history of CAD with prior [place], distal LAD disease. She has no reports of anginal sounding symptoms. She does not need aspirin as she is on Eliquis. Continue high-dose atorvastatin with ideal LDL goal less than 70. Continue metoprolol. Labs done 07/12/2024 showed LDL 105. This may not have been fasting as it was done at 11:55. Will have her recheck fasting lipids. (4) Essential hypertension: Code(s): I10 - Essential (primary) hypertension Category: Medical Plan: Blood pressure goal less than 130/80. Very elevated today for unclear reason. She reports med compliance. Recheck done by me . Will add amlodipine 2.5 mg daily. Office blood pressure check in 2 weeks. (5) H/O: CVA (cerebrovascular accident): Code(s): Z86.73 - Personal history of transient ischemic attack (TIA), and cerebral infarction without residual deficits Category: Medical Plan: History of CVA. Brain MRI from 08/13/2021 shows a small acute infarct in the right cerebral hemisphere, chronic lacunar infarct within the right jose j. History of AFib, on anticoagulation. (6) Uncontrolled hypertension: Code(s): I10 - Essential (primary) hypertension Category: Medical Plan: As above Plan During our discussion, we reviewed the patient's significant cardiovascular symptoms, particularly the palpitations and hypertension, with an emphasis on optimizing management. The introduction of amlodipine was proposed to manage her hypertensive state more effectively, coupled with dietary modifications like salt reduction. We discussed her upcoming visit and procedure with Electrophysiology for the treatment of her SVT. A thorough review of medication adherence and regularly scheduled follow-ups were emphasized to prevent complications, with consent obtained for the plan. The patient was reminded of the importance of controlled blood pressure to prevent further cardiac and cerebrovascular events. Medications: New amlodipine New BP medication 2.5 mg PO DAILY 30 tabs 5RF Patient Instructions: - Take amlodipine in addition to metoprolol and lisinopril. - Continue Eliquis without interruption - Attend EP appointment as scheduled. - Reduce salt consumption in your diet. - Attend all follow-up appointments for blood pressure checks. - Be consistent with taking your medications daily as prescribed. Patient was informed and verbally consented to the use of an ambient scribe for clinic note documentation during this visit. Visit time spent on chart review, interview, assessment, orders, documentation. Coding Level of Care Code Est Pt Level 4 (47106) Complex EM visit Add On G2211 Diagnoses SVT (supraventricular tachycardia) I47.10 PAF (paroxysmal atrial fibrillation) I48.0 CAD (coronary artery disease) I25.10 Essential hypertension I10 H/O: CVA (cerebrovascular accident) Z86.73 Uncontrolled hypertension I10 Time Spent (min) 32
== END 2025-03-06 10:19 | disposition home or self-care (01) ==
LOC: HO.HCS 07:38
PROVIDERS: PCP Internal Medicine; Visit Provider Nurse Practitioner Family
DX: I47.10 Supraventricular tachycardia, unspecified (principal); I48.0 Paroxysmal atrial fibrillation; I25.10 Atherosclerotic heart disease of native coronary artery without angina pectoris; I10 Essential (primary) hypertension; Z86.73 Personal history of transient ischemic attack (TIA), and cerebral infarction without residual deficits
CPT/HCPCS: 99214; G2211

== ENCOUNTER → 2025-03-06 07:37 | Outpatient (BNVA) | payer OTHER, SELFPAY | PROVIDERS: PCP Internal Medicine; Visit Provider Nurse Practitioner Family | DX: I47.10 Supraventricular tachycardia, unspecified (principal); I48.0 Paroxysmal atrial fibrillation; I25.10 Atherosclerotic heart disease of native coronary artery without angina pectoris; I10 Essential (primary) hypertension; Z86.73 Personal history of transient ischemic attack (TIA), and cerebral infarction without residual deficits | CPT/HCPCS: 99212 ==

== ENCOUNTER → 2025-03-20 13:16 | Outpatient (BNVA) | payer OTHER, SELFPAY | PROVIDERS: PCP Internal Medicine; Visit Provider Nurse Practitioner Family ==

== ENCOUNTER 2025-03-27 07:56 | Outpatient (REF) | payer OTHER, SELFPAY ==
--- NOTE | ~2025-03-27 | MM_ITS ---
EXAMINATION: MM SCREENING DIGITAL BREAST TOMOSYNTHESIS, BILATERAL CLINICAL INFORMATION: Screening. Asymptomatic. COMPARISON: Mammography: Comparison is made with available priors TECHNIQUE: Digital breast mammography with tomosynthesis is performed in both the craniocaudal and mediolateral oblique views along with computer-aided detection (CAD). FINDINGS: There are scattered areas of fibroglandular density (ACR BI-RADS breast composition Category b). Bilateral reduction mammoplasty. There are no significant masses, abnormal calcifications, or other abnormalities. MM/MM tomosynthesis screening BI IMPRESSION: No mammographic evidence of malignancy. ASSESSMENT: BI-RADS BI-RADS 2 - Benign Findings RECOMMENDATION: Routine annual mammography screening. 1 year F/U This examination should not preclude the clinical evaluation of a suspicious palpable abnormality. This patient's information was entered into a reminder system with a target due date for their next mammogram. Electronically signed by: Shweta López DO 03/30/2025 05:33 PM EDT
--- NOTE | ~2025-03-27 | MM_ITS ---
EXAMINATION: DXA BONE DENSITY AXIAL HISTORY: Z78.0 - Asymptomatic menopausal state TECHNIQUE: Resonant Vibes Dual energy absorptiometry (DEXA) of the lumbar spine, total left hip, and femoral neck was performed. COMPARISON: Comparison is made with the prior examination dated 10/13/2016. FINDINGS: The bone mineral density of the lumbar spine is 0.994, corresponding to a T-score of -1.5, and a Z-score of 0.2. This is indicative of osteopenia. This represents a BMD change of 0.7% compared to the prior exam. This is not statistically significant. The bone mineral density of the left total hip is 0.789, corresponding to a T-score of -1.7, and a Z-score of 0.0. This is indicative of osteopenia. This represents a BMD change of -2.8% compared to the prior exam. This is not statistically significant. The bone mineral density of the left femoral neck is 0.761, corresponding to a T-score of -2.0, and a Z-score of 0.0. This is indicative of osteopenia. This represents a BMD change of 0.1% compared to the prior exam. FRACTURE RISK: The FRAX index suggests a ten year probability of major osteoporotic fracture of 8.6%, and of hip fracture 2.3%. MM/XR DEXA axial skeleton IMPRESSION: Based on bone mineral density, and according to World Health Organization (WHO) criteria, the diagnosis is consistent with osteopenia. All bone density values are in grams per centimeter squared (g/cm2). Statistically, 68% of repeat scans fall within 1 SD (+/- 0.010 g/cm2 for AP spine L1-L4) and 1 SD (+/- 0.012 g/cm2 for femur total) FRAX is a trademark of the [employer] Metabolic Bone Disease, a World Health Organization (WHO) Collaborating Center. Electronically signed by: Jacinto Newby MD 03/27/2025 09:23 AM EDT
--- OUTSIDE RECORDS SUMMARY | 2025-03-27 08:01 | XMS_ITS | Clinical Summary ---
Author Organization [employer] Address [address] [place] [address] Care Team Providers Care Records And Tape Recordings Engineer Name Role Phone Unavailable Primary Care Provider Unavailabl e Immunizations Immunization Administration Dates Next Due Influenza High-dose Quadrivalent [...] - 1-dose 75+ series) 2022 COVID-19 Vaccine ( - season) 2024 12/22/2022, 10/02/2021, 12/25/2020 Influenza Vaccine (Season Ended) 2025 07/13/2022, 06/26/2021, 07/07/2020, Additional history exists Lipid Panel [...] patient's age to complete this topic Meningococcal B Vaccine Aged Out No l onger eligible based on patient's age to complete [...] PM EDT) Chol/HDLC Ratio 2.5 <5.0 (calc) [facility] Cholesterol, Total 142 <200 mg/dL [facility] HDL Cholesterol 56 > OR = 50 mg/dL [facility] LDL Cholesterol 73 mg/dL (calc) [facility] Comment: Reference range: <100 Desirable range <100 mg/dL for primary prevention; <70 mg/dL for patients with CHD or diabetic patients with > or = 2 CHD risk factors. LDL-C is now calculated using the Jamari-Rivers calculation, which is a validated novel method providing better accuracy than the Friedewald equation in the estimation of LDL-C. Jamari SS et al. ANIL. 2013;310(19): 0236-9180 (http://education.[employer].com/faq/VGW079) Non-HDL Cholesterol 86 <130 mg/dL (calc) [facility] Comment: For patients with diabetes plus 1 major ASCVD risk factor, treating to a non-HDL-C goal of <100 mg/dL (LDL-C of <70 mg/dL) is considered a therapeutic option. Triglycerides 51 <150 mg/dL [facility] 03/25/2021 1:25 PM EDT us Yeny Calderon MD LAB BLOOD ORDERABLES Fin al Result [facility] [address] from Last 3 Months or Most Recently Relevant to Health Maintenance Insurance [facility] [place] [address] # [address] [place] [id number]
== END 2025-03-27 07:57 | disposition home or self-care (01) ==
LOC: HO.MAMMO 07:56
PROVIDERS: PCP Internal Medicine; Visit Provider Internal Medicine
DX: Z12.31 Encounter for screening mammogram for malignant neoplasm of breast (principal); Z13.820 Encounter for screening for osteoporosis; Z78.0 Asymptomatic menopausal state
CPT/HCPCS: 77063; 77067; 77080

== ENCOUNTER → 2025-03-27 09:15 | Outpatient (BNV) | payer OTHER, SELFPAY | PROVIDERS: PCP Internal Medicine; Visit Provider Radiology Diagnostic Radiology | DX: E28.39 Other primary ovarian failure (principal) | CPT/HCPCS: 77080 ==

== ENCOUNTER 2025-04-17 09:01 | Outpatient (AMB) | payer OTHER, SELFPAY ==
--- OUTSIDE RECORDS SUMMARY | 2025-04-17 09:18 | XMS_ITS ---
Author Name Hannah Jain NP Address [address] [place] [address] Phone [phone] [facility] Care Team Providers Care Silo Painter Name Role Phone Hannah Jain Unavailable [phone] Unavailable Unavailable [phone] Unavailable Unavailable [phone] Reason for Referral Not Available Allergies, adverse reactions, alerts Allergen Type Reaction Severity Status Onset Date Oxycodone Allergy to substance (disorder) Hives Unknown Active N/A History of medication use Medication Class Instructions Start Date End Date Lisinopril 40 mg Tab take 1 tablet by mo kyh daily 2022-02-10 No Data Available Eliquis 5 [...] treatment plan as directed. 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 Asthma Active 2022-08 N/A On BreoFluticasoneAlbuterolF oluc [facility] Computer Specialist Continue current treatment plan as directed. Hypercoagulability [...] Active 2022-08 N/A On FurosemideMetoprololFollo ws a Barn Manager, will monitor edema and weight. Continue current [...] with personal care Active 2024-01 N/A Receives template checker hours Difficulty in walking, not elsewhere classified /Unsteady gait Active 2024-01 N/A walk with walker / 1 assist Other problems related to medical facilities and other health care Active 2023-12 N/A Monthly follow up calls with pt CONTINGENCY PLAN Why was the member in the hospital or ER most recently? Why are they most likely to go back? Please call [facility] if you have a change in [...] (do not use for phone, instead use 33611-96) [facility] [place] Hypertensive heart disease w ith heart failureHeart failure, unspecifiedSacroiliitis, not elsewhere classifiedOther thrombophiliaUnspecified atrial fibrillationUnspecified asthma, uncomplicatedInsomnia, unspecifiedHyperlipidemia, unspecifiedUnspecified dementia without behavioral disturbanceOther seasonal allergic rhinitisUnsp athscl elim ira arteries of extremities, unsp extremityLumbago with sciatica, unspecified sideOther chronic painSecondary hyperaldosteronismChronic obstructive pulmonary disease, unspecified New patient,40-59min; chronic exacerbation, 2 stable chronic or 1 acute illness add add modifier 95 for video (do not use for phone, instead use 79933-24) [facility] [place] New patient,40-59min; chronic exacerbation, 2 stable chronic or 1 acute illness add add modifier 95 for video (do not use for phone, instead use 35791-86) [facility] [place] New patient,40-59min; chronic exacerbation, 2 stable chronic or 1 acute illness add add modifier 95 for video (do not use for phone, instead use 65859-99) [facility] [place] New patient,40-59min; chronic exacerbation, 2 stable chronic or 1 acute illness add add modifier 95 for video (do not use for phone, instead use 69989-72) [facility] [place] New patient,40-59min; chronic exacerbation, 2 stable chronic or 1 acute illness add add modifier 95 for video (do not use for phone, instead use 77959-45) [facility] [place] New patient,40-59min; chronic exacerbation, 2 stable chronic or 1 acute illness add add modifier 95 for video (do not use for phone, instead use 36383-57) [facility] [place] 08[place]/[address] [facility] [place] 09[place]/2022 Heart failure, unspecifiedUnspecified asthma, uncomplicatedHyperlipidemia, unspecifiedChronic obstructive pulmonary disease, unspecifiedHypertensive heart disease with heart failure Estab. patient 30-39min; chronic exacerbation, 2 stable chronic or 1 acute illness add add modifier 95 for video, (do not use for phone, instead use 67872-71) [facility] [place] 10[place]/2022 Heart failure, unspecifiedSacroiliitis, not elsewhere classifiedOther thrombophiliaUnspecified atrial fibrillationUnspecified asthma, uncomplicatedHyp hrt & chr kdny dis w hrt fail and stg 1-4/unsp chr kdnyInsomnia, unspecifiedHyperlipidemia, unspecifiedUnspecified dementia without behavioral disturbanceOther seasonal allergic rhinitisUnsp athscl elim ira arteries of extremities, unsp extremityLumbago with sciatica, unspecified sideOther chronic painSecondary hyperaldosteronismChronic obstructive pulmonary disease, unspecifiedGastro-esophageal reflux disease without esophagitisChronic kidney disease, stage 3aInterstitial pulmonary disease, unspecifiedUnspecified urinary incontinenceOther forms of acute ischemic heart disease Estab. patient 30-39min; chronic exacerbation, 2 stable chronic or 1 acute illness add add modifier 95 for video, (do not use for phone, instead use 52467-44) [facility] [place] Estab. patient 30-39min; chronic exacerbation, 2 stable chronic or 1 acute illness add add modifier 95 for video, (do not use for phone, instead use 24285-36) [facility] [place]/20[place] Estab. patient 30-39min; chronic exacerbation, 2 stable chronic or 1 acute illness add add modifier 95 for video, (do not use for phone, instead use 92310-16) [facility] [place]/20[place] Estab. patient 30-39min; chronic exacerbation, 2 stable chronic or 1 acute illness add add modifier 95 for video, (do not use for phone, instead use 04591-37) [facility] [place] 10[place]/20[place] Estab. patient 30-39min; chronic exacerbation, 2 stable chronic or 1 acute illness add add modifier 95 for video, (do not use for phone, instead use 58631-93) [facility] Estab. patient 30-39min; chronic exacerbation, 2 stable chronic or 1 acute illness add add modifier 95 for video, (do not use for phone, instead use 80805-58) [facility] [place] [facility] [place] 12/[place]/2022 Chronic obstructive pulmonar y disease, unspecifiedHypertensive heart disease with heart failureHeart failure, unspecified No Data Available [facility] [place]2023 Heart failure, unspecifiedSacroiliitis, not elsewhere classifiedOther thrombophiliaUnspecified atrial fibrillationUnspecified asthma, uncomplicatedHyp hrt & chr kdny dis w hrt fail and stg 1-4/unsp chr kdnyInsomnia, unspecifiedHyperlipidemia, unspecifiedUnspecified dementia without behavioral disturbanceOther seasonal allergic rhinitisUnsp athscl elim ira arteries of extremities, unsp extremityLumbago with sciatica, [...] without behavioral disturbanceOther seasonal allergic rhinitisUnsp athscl elim ira arteries of extremities, unsp extremityLumbago with sciatica, unspecified sideOther chronic painChronic obstructive pulmonary disease, unspecifiedGastro-esophageal reflux disease without esophagitisInterstitial pulmonary disease, unspecifiedUnspecified urinary incontinenceOther forms of acute ischemic heart disease No Data Available [facility] No Data Available [facility] [place] No Data Available [facility] No Data Available [facility] [place]/18[place] No Data Available [facility] [place]/18[place]2023 No Data Available [facility] [place] 03[place]25[place]2023 Hyp hrt & chr kdny dis w hrt fail and stg 1-4/unsp chr kdnyChronic kidney disease, stage 3aHeart failure, unspecifiedSacroiliitis, not elsewhere classifiedOther thrombophiliaUnspecified atrial fibrillationUnspecified asthma, uncomplicatedInsomnia, unspecifiedHyperlipidemia, unspecifiedUnspecified dementia without behavioral disturbanceOther seasonal allergic rhinitisUnsp athscl elim ira arteries of extremities, bilateral legsLumbago with sciatica, unspecified sideOther chronic painSecondary hyperaldosteronismChronic obstructive pulmonary disease, unspecifiedGastro-esophageal reflux disease without esophagitisInterstitial pulmonary disease, unspecifiedUnspecified urinary incontinenceAcute ischemic heart disease, unspecified No Data Available [facility] [place]2023 No Data Available [facility] [place] No Data Available [facility] [place]2023 No Data Available [facility] [place]20[place] No Data Available [facility] [place] 03[place]2023 No Data Available [facility] [place] 05[place]/2023 Heart failure, unspecifiedSacroiliitis, not elsewhere classifiedOther thrombophiliaUnspecified atrial fibrillationUnspecified asthma, uncomplicated No Data Available [facility] [place] 05[place] [facility] [...] without behavioral disturbanceOther seasonal allergic rhinitisUnsp athscl elim ira arteries of extremities, unsp extremityLumbago with sciatica, [...] (do not use for phone, instead use 07407-37) [facility] [place]24 Heart failure, unspecifiedSacroiliitis, not elsewhere classifiedOther thrombophiliaUnspecified atrial fibrillationUnspecified asthma, uncomplicatedEssential (primary) hypertensionInsomnia, unspecifiedHyperlipidemia, unspecifiedUnspecified dementia without behavioral disturbanceOther seasonal allergic rhinitisUnsp athscl elim ira arteries of extremities, unsp extremityLumbago with sciatica, [...] (do not use for phone, instead use 83611-28) [facility] [place] Estab. patient 30-39min; chronic exacerbation, 2 stable chronic or 1 acute illness add add modifier 95 for video, (do not use for phone, instead use 92789-26) [facility] [place] Estab. patient 30-39min; chronic exacerbation, 2 stable chronic or 1 acute illness add add modifier 95 for video, (do not use for phone, instead use 81239-20) [facility] [place] Estab. patient 30-39min; chronic exacerbation, 2 stable chronic or 1 acute illness add add modifier 95 for video, (do not use for phone, instead use 10192-11) [facility] [place] Estab. patient 30-39min; chronic exacerbation, 2 stable chronic or 1 acute illness add add modifier 95 for video, (do not use for phone, instead use 26220-24) [facility] [place] Estab. patient 30-39min; chronic exacerbation, 2 stable chronic or 1 acute illness add add modifier 95 for video, (do not use for phone, instead use 79829-41) [facility] [place] Estab. patient 30-39min; chronic exacerbation, 2 stable chronic or 1 acute illness add add modifier 95 for video, (do not use for phone, instead use 96581-17) [facility] [place] Estab. patient 30-39min; chronic exacerbation, 2 stable chronic or 1 acute illness add add modifier 95 for video, (do not use for phone, instead use 37411-91) [facility] [place] Estab. patient 30-39min; chronic exacerbation, 2 stable chronic or 1 acute illness add add modifier 95 for video, (do not use for phone, instead use 66814-17) [facility] [place] Vital Signs [...] tive Time Current Smoking Status Never smoker 2025-04-03 7 Sex Female History of Procedures Procedures Service Procedure code Service date Servicing provider Phone# New patient,40-59min; chronic exacerbation, 2 stable chronic or 1 acute illness add add modifier 95 for video (do not use for phone, instead use 92073-51) [id number] 2022-08-07 No Data Available No Data Availa [...] le No Data Available No Data Available [id number] 2022-09-16 No Data Available No Data Available Estab. patient 30-39min; chronic exacerbation, 2 stable chronic or 1 acute illness add add modifier 95 for video, (do not use for phone, instead use 39744-26) [id number] 2022-10-22 No Data Available No Data Availa [...] No Data Miguelina ilable No Data Available [id number] 2022-12-09 No Data Available No Data Available No Data Available [id number] 2023-01-19 No Data Available No Data Available [...] No Data Availa ble No Data Available [id number] 2023-02-18 No Data Available No Data Available [...] Available No Data Available No Data Available [id number] 2023-03-25 No Data Available No Data Available [...] le No Data Available No Data Available [id number] 2023-05-11 No Data Available No Data Available [...] Available No Data Available No Data Available [id number] 2023-10-30 No Data Available No Data Available [...] (do not use for phone, instead use 51804-06) [id number] 2024-01-25 No Data Available No Data Availa [...] ble Advance care planning discussed and documented advance care plan or surrogate decision-maker was [...] to atrial fibrillationAsthmaHypertensionInsomniaHyperlipidemiaDementiaSeasonal allergic rhinitisUnspecified atherosclerosis of elim ira arteries of extremities, unspecified extremityChronic low back pain with sciaticaSecondary hyperaldosteronismChronic obstructive pulmonary disease, unspecified 2022-09-16 10:48:14 Heart failure, unspecified [I50.9]Asthma [J45.909]Hypertension [I10]Hyperlipidemia [E78.5]Chronic obstructive pulmonary disease, unspecified [J44.9] 2022-10-22 09:11:25 Heart failure, unspecifiedSacroiliitis, not elsewhere classifiedHypercoagulability due to atrial fibrillationAsthmaHypertensionInsomniaHyperlipidemiaDementiaSeasonal allergic rhinitisUnspecified atherosclerosis of elim ira arteries of extremities, unspecified extremityChronic low back pain with sciaticaSecondary hyperaldosteronismChronic obstructive pulmonary disease, unspecifiedGERD (gastroesophageal reflux disease)Chronic kidney disease, stage 3aInterstitial pulmonary disease, unspecifiedBladder incontinenceOther forms of acute ischemic heart disease 2022-12-09 09:22:26 Chronic obstructive pulmonary disease, u nspecified [J44.9]Hypertension [I10]Heart failure, unspecified [I50.9] 2023-01-19 12:12:29 Heart failure, unspecifiedSacroiliitis, not elsewhere classifiedHypercoagulability due to atrial fibrillationAsthmaHypertensionInsomniaHyperlipidemiaDementiaSeasonal allergic rhinitisUnspecified atherosclerosis of elim ira arteries of extremities, unspecified extremityChronic low back [...] ongoingSeasonal allergic rhinitis - ongoingUnspecified atherosclerosis of elim ira arteries of extremities, unspecified extremity - ongoingChronic [...] ongoingSeasonal allergic rhinitis - ongoingUnspecified atherosclerosis of elim ira arteries of extremities, unspecified extremity - ongoingChronic [...] to atrial fibrillationAsthmaHypertensionInsomniaHyperlipidemiaDementiaSeasonal allergic rhinitisUnspecified atherosclerosis of elim ira arteries of extremities, unspecified extremityChronic low back [...] to atrial fibrillationAsthmaHypertensionInsomniaHyperlipidemiaDementiaSeasonal allergic rhinitisUnspecified atherosclerosis of elim ira arteries of extremities, unspecified extremityChronic low back [...] education needs that may arise.On FurosemideMetoprololFollows a Barn Manager, will monitor edema and weight.On TylenolOn EliquisOn [...] failure, unspe cified [I50.9]> On FurosemideMetoprololFollows a Barn Manager, will monitor edema and weight.Asthma [J45.909]> On [...] education needs that may arise.On FurosemideMetoprololFollows a Barn Manager, will monitor edema and weight.10/22/22: Continue current [...] 11/26.Heart failure, unspecified [I50.9]> On FurosemideMetoprololFollows a Barn Manager, will monitor edema and weight.10/22/22: Continue current [...] needs that may arise 26/04.On FurosemideMetoprololFollows a Barn Manager, will monitor edema and weight.10/22/22: Continue current treatment plan as directed. Continue current treatment plan as directed. F/u with Cardiology on 02/23.On TylenolContinue current treatment plan as directed.On EliquisFollows Cardiology Continue current treatment plan as directed.On BreoFluticasoneAlbuterolFollows Computer Specialist Continue current treatment plan as directed.On AmlodipineLisinoprilMetoprololEncouraged [...] needs that may arise 26/04.On FurosemideMetoprololFollows a Barn Manager, will monitor edema and weight.10/22/22: Continue current treatment plan as directed. Continue current treatment plan as directed. F/u with Cardiology on 02/23.On TylenolContinue current treatment plan as directed.On EliquisFollows Cardiology Continue current treatment plan as directed.On BreoFluticasoneAlbuterolFollows Computer Specialist Continue current treatment plan as directed.On AmlodipineLisinoprilMetoprololEncouraged [...] needs that may arise 26/04.On FurosemideMetoprololFollows a Barn Manager, will monitor edema and weight.10/22/22: Continue current treatment plan as directed. Continue current treatment plan as directed. F/u with Cardiology q 6 monthOn TylenolContinue current treatment plan as directed.On EliquisFollows Cardiology Continue current treatment plan as directed.On BreoFluticasoneAlbuterolFollows Computer Specialist Continue current treatment plan as directed.On AmlodipineLisinoprilMetoprololEncouraged [...] needs that may arise 26/04.On FurosemideMetoprololFollows a Barn Manager, will monitor edema and weight. Continue current [...] needs that may arise 26/04.On FurosemideMetoprololFollows a Barn Manager, will monitor edema and weight. Continue current treatment plan as directed. F/u with Cardiology q 6 monthOn TylenolContinue current treatment plan as directed.On EliquisFollows Cardiology Continue current treatment plan as directed.On BreoFluticasoneAlbuterolFollows Computer Specialist Continue current treatment plan as directed.On AmlodipineLisinoprilMetoprololEncouraged [...] modifier 95Advance care planning discussed and documented advance care plan or surrogate decision-maker was documented in the medical record. (1123F)Pain Assessment - Pain Documented (1125F)Continue to see PCP. Follow-up with [facility] as needed for any acute or disease education needs that may arise.<Add contingency plans here>Monthly follow up calls with pt CONTINGENCY PLAN Why was the member in the hospital or ER most recently? Why are they most likely to go back? Please call [facility] if you have a change in condition, Blood pressure > 170/90 Fall, any unusual symptoms or have any medical questions!On FurosemideMetoprololFollows a Barn Manager, will monitor edema and weight. Continue current treatment plan as directed. F/u with Cardiology q 6 monthOn TylenolContinue current treatment plan as directed.On EliquisFollows Cardiology Continue current treatment plan as directed.On BreoFluticasoneAlbuterolFollows Computer Specialist Continue current treatment plan as directed.On AmlodipineLisinoprilMetoprololEncouraged [...] Follows PulmonologyNeeds Disposable bed padsOn MetoprololFollows CardiologyReceives template checker hourswalk with walker / 1 assistSkin care [...] to the ER.4. Discussed how to contact [facility] via phone or tablet. 2023-02-18 1. Remember to keep all appointments with your PCP.2. Take all medication on time and try to eat healthy3. Call if you have questions or concerns before you go to the ER.4. Discussed how to contact [facility] via phone or tablet. 2023-03-25 1. Take all medicati on on time and try to eat healthy2. Call if you have questions or concerns before you go to the ER.3. Remember to keep all appointments with your PCP.4. Discussed how to contact [facility] via phone or tablet. Health Concerns [...] discussedDo you have a Durable Power of Pharmacist for Healthcare, or Healthcare Proxy Or Guardianship? Yes, POAIf so, Who? john Henry is hcpDo you have a written Advance Directive? Has no formal documentationOther details of discussion: (Who was present, patients description of wishes/goals)Today's plan: Advised patient to discuss wishes with [id number] : AD or surrogate was documented in the medical record. 2024-01-25 Most recent hospital stay(s) or ER visit(s) and precipitating factors: Urgent care 01/20 due to respiratory symptoms 2024-01-25 Open HEDIS Measure jl miranda: Reviewed
--- OUTSIDE RECORDS SUMMARY | 2025-04-17 09:18 | XMS_ITS | Clinical Summary ---
Author Organization [employer] [employer] Address [address] [place] [address] Care Team Providers Care Brothel Keeper Name Role Phone Unavailable Primary Care Provider [...] 75+ series) 2022 COVID-19 Vaccine ( - 2023- season) 2024 12/22/2022, 10/02/2021, 12/25/2020 Influenza Vaccine (#1) 2025 , 06/26/2021, 07/07/2020, Additional history exists Lipid [...] PM EDT) Chol/HDLC Ratio 2.5 <5.0 (calc) [facility] Cholesterol, Total 142 <200 mg/dL [facility] HDL Cholesterol 56 > OR = 50 mg/dL [facility] LDL Cholesterol 73 mg/dL (calc) [facility] Comment: Reference range: <100 Desirable range <100 mg/dL for primary prevention; <70 mg/dL for patients with CHD or diabetic patients with > or = 2 CHD risk factors. LDL-C is now calculated using the Jamari-Rivers calculation, which is a validated novel method providing better accuracy than the Friedewald equation in the estimation of LDL-C. Jamari SS et al. ANIL. 2013;310(19): 1846-1850 (http://education.[employer].com/faq/SRV972) Non-HDL Cholesterol 86 <130 mg/dL (calc) [facility] Comment: For patients with diabetes plus 1 major ASCVD risk factor, treating to a non-HDL-C goal of <100 mg/dL (LDL-C of <70 mg/dL) is considered a therapeutic option. Triglycerides 51 <150 mg/dL [facility] 03/25/2021 1:25 PM EDT us Yeny Calderon MD LAB BLOOD ORDERABLES Fin al Result [facility] [address] from Last 3 Months or Most Recently Relevant to Health Maintenance Insurance [facility] [employer] # [address] [place] [id number]
--- OUTSIDE RECORDS SUMMARY | 2025-04-17 09:19 | XMS_ITS | Clinical Summary ---
Author Organization [facility] Address [address] [place] [address] Care Team Providers Care Fishing Tool Supervisor Name Role Phone Unavailable Primary Care Provider [...]
[2025-04-17 10:12] VITALS: BP 148/70; PULSE 74; BMI 26.6
--- NOTE | 2025-04-17 10:12 | MHC.OFFVIS ---
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 Name: voice young [id number] Allergies oxycodone (From Percocet) Allergy (Intermediate, Verified 04/17/25 10:15) Agitated morphine Adverse Reaction (Verified 04/17/25 10:15) Agitated Medication List - Last Reconciled 04/17/25 by Katina Morales NP-C amlodipine 2.5 mg PO DAILY apixaban (Eliquis) 5 mg PO BID atorvastatin 40 mg PO BEDTIME budesonide 0.5 mg (2 mL) inhalation BID calcium carbonate-vitamin D3 500 mg-10 mcg (400 unit) (Calcium 500 With D) 1 tab PO BID 90 days compress.stocking,knee,reg,med As directed donepezil 10 mg PO DAILY esomeprazole magnesium (Nexium) 40 mg PO DAILY famotidine 40 mg PO BEDTIME Grab bar As directed [handheld showerhead As directed] [incontinence pads As directed] ipratropium-albuterol 0.5 mg-3 mg(2.5 mg base)/3 mL 3 mL inhalation DAILY 30 days lisinopril 40 mg PO DAILY memantine 10 mg PO BID metoprolol succinate ER 50 mg PO BID ondansetron HCl 4 mg PO Q8H PRN Shower Chair As directed [toilet frame As directed] underpads (Bed Underpads) As directed walker (Ultra-Light Rollator misc) As directed HPI HPI 6 wk f/up: Details: Becca is a 79-year-old female with past medical history of hypertension, CVA, paroxysmal atrial fibrillation, CAD who was recently admitted to [facility] with heart palpitations and found to have SVT requiring adenosine. Following that admission she was was referred to electrophysiology to discuss ablation. On last visit her BP was elevated and amlodipine was added. Today she reports she has been doing well since her last visit 03/06/25. She has not had any issues with recurrent heart palpitations. She is taking her meds as directed. She has no chest discomfort, shortness of breath, lightheadedness, presyncope, syncope, PND, orthopnea or edema. Certified operations examiner used. PFSH Medical History Colitis Schatzki's ring Depression Hypersomnia Snoring Cognitive impairment History of CVA (cerebrovascular accident) Afib Acute CVA (cerebrovascular accident) IBS (irritable bowel syndrome) Abdominal hyperesthesia Dyspepsia Osteoarthritis of lumbar spine Scoliosis GERD (gastroesophageal reflux disease) HTN (hypertension) Surgical History Status post ablation of incompetent vein using laser (06/12/22) Hx of hysterectomy H/O oophorectomy H/O bilateral breast reduction surgery Family History Son HTN (hypertension) Father No problems noted. Mother No problems noted. Social History Household Members: Other Household Members Other:: Grandson [facility]: [facility] Are you a primary care associate to a significant other at home: No Do you presently have visiting nurse or other home services: No Alcohol intake: never Patient Tobacco Use Status: Never used Tobacco e-Cigarette/Vaping Use: Never Used Second Hand Smoke Exposure: No Advance Directives Date on File: 08/13/21 service: No Current occupational status: disabled Cognitive needs: No Hearing needs: No Vision needs: Yes (Glasses) Review of Systems Const All systems reviewed & are unremarkable except as noted in HPI and below ENT Denies dizziness Card Denies chest pain, Denies chest pain at rest, Denies chest pain with activity, Denies rapid heart rate, Denies pedal edema, Denies edema, Denies leg edema, Denies lightheadedness, Denies palpitations, Denies dyspnea, Denies dyspnea on exertion and Denies orthopnea Resp Denies cough, Denies dyspnea and Denies dyspnea on exertion GI Denies hematochezia and Denies change in stool character Musc Denies abnormal gait, Denies limited range of motion, Denies muscle cramps, Denies muscle weakness, Denies numbness, Denies radiating pain into limb, Denies stiffness and Denies tingling Neuro Denies abnormal gait, Denies dizziness, Denies numbness and Denies tingling Endo Denies palpitations Physical Exam Vital Signs: Last Vital Signs Pulse 74 04/17/25 10:12 BP 148/70 H 04/17/25 10:12 BMI result Body Mass Index 26.6 Const General: cooperative, healthy appearing, comfortable and no acute distress Orientation/consciousness: patient oriented x3 Neck Neck: Yes normal visual inspection Resp Effort & Inspection: normal respiratory effort Auscultation: clear to auscultation bilaterally, no rales, no rhonchi and no wheezes Cardio Rate: regular rate Rhythm: regular rhythm Heart sounds: S1 normal heart sound present, S2 normal heart sound present, no gallops, no murmurs and no rubs GI Inspection: Yes normal to inspection Neuro General: patient oriented x3 Extrem General: Yes normal to inspection, No no pedal edema and No calf tenderness Psych Appearance: grossly normal Mental Status: mental status grossly normal Speech and movement: Normal speech and movement present Assessment & Plan Assessment & Plan (1) SVT (supraventricular tachycardia): Code(s): I47.10 - Supraventricular tachycardia, unspecified Category: Medical Plan: [facility] admission 12/2024 with palpitations and found to have SVT requiring adenosine. He has a history PAF and has been on metoprolol, currently at 50 mg b.i.d.. Echocardiogram 12/21/2024 showed EF 60-65%, normal RV size and function. She has been seen by EP and has SVT ablation planned for May 2025. Condition stable at present. Continue metoprolol. Vagal maneuvers reviewed. (2) PAF (paroxysmal atrial fibrillation): Code(s): I48.0 - Paroxysmal atrial fibrillation Category: Medical Plan: History of paroxysmal atrial fibrillation that is treated with rhythm control. She is on metoprolol for heart rate control. She is on Eliquis for anticoagulation. Labs 12/29/2024 shows hematocrit 38.5, Creatinine 0.71. Last Holter monitor done on 12/14/2023 for 2.5 days shows sinus rhythm with average heart rate 75, no AFib. Last EKG 12/29/2024 showing normal sinus rhythm, rate 85. Pulse is regular on examination today, clinically sinus rhythm. No med changes made (3) CAD (coronary artery disease): Code(s): I25.10 - Atherosclerotic heart disease of ramona coronary artery without angina pectoris Category: Medical Plan: Notes indicate history of CAD with prior LA, distal LAD disease. She has no reports of anginal sounding symptoms. She does not need aspirin as she is on Eliquis. Continue high-dose atorvastatin with ideal LDL goal less than 70. Continue metoprolol. Labs done 07/12/2024 showed LDL 105. This may not have been fasting as it was done at 11:55. Repeat lipids still pending. (4) Essential hypertension: Code(s): I10 - Essential (primary) hypertension Category: Medical Plan: Blood pressure goal less than 130/80. Elevated last visit and amlodipine 2.5 mg daily added. Blood pressure today 148/70, recheck done by me later in the visit 152/72. Will have her increase amlodipine up to 5 mg daily. Periodic home blood pressure checks recommended. (5) H/O: CVA (cerebrovascular accident): Code(s): Z86.73 - Personal history of transient ischemic attack (TIA), and cerebral infarction without residual deficits Category: Medical Plan: History of CVA. Brain MRI from 08/13/2021 shows a small acute infarct in the right cerebral hemisphere, chronic lacunar infarct within the right jose j. History of AFib, on anticoagulation. Plan I discussed with the patient the importance of continuing her medications, including metoprolol and Eliquis, to manage her atrial fibrillation and reduce stroke risk. We reviewed the upcoming cardiac ablation procedure scheduled for May and its potential benefits in controlling her SVT rhythm. I advised her on performing vagal maneuvers if she experiences rapid heartbeats and emphasized the need to avoid dietary salt to manage her blood pressure. A follow-up appointment was scheduled in four months to reassess her condition and blood pressure control. Medications: New amlodipine dose increased 5 mg PO DAILY 90 tabs 1RF Discontinued amlodipine New BP medication Discontinued Reason: Doctor's Order 2.5 mg PO DAILY 30 tabs 5RF Patient Instructions: - Continue taking metoprolol and Eliquis as prescribed. - Perform vagal maneuvers if experiencing rapid heartbeats. - Avoid dietary salt to help manage blood pressure. - Attend scheduled cardiac ablation in May. - Follow up in four months for reassessment. Patient was informed and verbally consented to the use of an ambient scribe for clinic note documentation during this visit. Visit time spent on chart review, interview, assessment, orders, documentation. Coding Level of Care Code Est Pt Level 3 (63191) Complex EM visit Add On G2211 Diagnoses SVT (supraventricular tachycardia) I47.10 PAF (paroxysmal atrial fibrillation) I48.0 CAD (coronary artery disease) I25.10 Essential hypertension I10 H/O: CVA (cerebrovascular accident) Z86.73 Time Spent (min) 24
== END 2025-04-17 10:52 | disposition home or self-care (01) ==
LOC: HO.HCS 09:01
PROVIDERS: PCP Internal Medicine; Visit Provider Nurse Practitioner Family
DX: I47.10 Supraventricular tachycardia, unspecified (principal); I48.0 Paroxysmal atrial fibrillation; I25.10 Atherosclerotic heart disease of native coronary artery without angina pectoris; I10 Essential (primary) hypertension; Z86.73 Personal history of transient ischemic attack (TIA), and cerebral infarction without residual deficits
CPT/HCPCS: 99213; G2211

== ENCOUNTER → 2025-04-17 09:01 | Outpatient (BNVA) | payer OTHER, SELFPAY | PROVIDERS: PCP Internal Medicine; Visit Provider Nurse Practitioner Family | DX: I48.0 Paroxysmal atrial fibrillation (principal); I47.10 Supraventricular tachycardia, unspecified; I25.10 Atherosclerotic heart disease of native coronary artery without angina pectoris; Z86.73 Personal history of transient ischemic attack (TIA), and cerebral infarction without residual deficits | CPT/HCPCS: 99212 ==

== ENCOUNTER 2025-04-23 13:17 | Outpatient (AMB) | payer OTHER, SELFPAY ==
[2025-04-23 13:19] VITALS: BP 102/58; PULSE 76; TEMP 36.4; O2SAT 98; BMI 26.6
--- NOTE | 2025-04-23 13:19 | MHC.OFFVIS ---
Vital Signs 04/23/25 13:19 Height 5 ft 4 in Weight 155 lb BMI 26.6 BP 102/58 L Blood Pressure Location Rt brachial Position Sitting Pulse 76 Pulse Source Pulse Oximeter Temp 97.6 F Temp Source Temporal Artery Scan Pulse Oximetry (%) 98 Oxygen Delivery Method Room Air Intake Visit Reasons: asthma Care Transport Nurse Required: Yes Care Transport Nurse Name: Sheeba Galvan HaleySylvie Allergies oxycodone (From Percocet) Allergy (Intermediate, Verified 04/23/25 13:25) Agitated morphine Adverse Reaction (Verified 04/23/25 13:25) Agitated HPI HPI asthma: Details: 79-year-old lady, lifetime nonsmoker, with underlying history hypertension, AFib previously on Multaq, now followed for asthma and pulmonary component to dyspnea. She has been using nebulized Brovana, Symbicort, and duo nebs with good control of her symptoms. For her GERD symptoms she is on PPI and famotidine with reasonable control of his symptoms. She has been doing well until approximately 2 weeks prior when she developed bronchitic exacerbation, now partially resolved, however still with end expiratory wheezing. [facility] Medical History Colitis Schatzki's ring Depression Hypersomnia Snoring Cognitive impairment History of CVA (cerebrovascular accident) Afib Acute CVA (cerebrovascular accident) IBS (irritable bowel syndrome) Abdominal hyperesthesia Dyspepsia Osteoarthritis of lumbar spine Scoliosis GERD (gastroesophageal reflux disease) HTN (hypertension) Surgical History Status post ablation of incompetent vein using laser (06/12/22) Hx of hysterectomy H/O oophorectomy H/O bilateral breast reduction surgery Family History Son HTN (hypertension) Father No problems noted. Mother No problems noted. Social History Household Members: Other Household Members Other:: Grandson Housing: Condominium Are you a primary manager critical care to a significant other at home: No Do you presently have visiting nurse or other home services: No Alcohol intake: never Patient Tobacco Use Status: Never used Tobacco e-Cigarette/Vaping Use: Never Used Second Hand Smoke Exposure: No Advance Directives Date on File: 08/13/21 service: No Current occupational status: disabled Cognitive needs: No Hearing needs: No Vision needs: Yes (Glasses) Review of Systems Const Denies daytime sleepiness, Denies excessive sweating, Denies fatigue, Denies fever(s), Denies lethargy, Denies malaise, Denies night sweats, Denies snoring and Denies weight loss Eyes Denies blurry vision and Denies itchy eyes ENT Denies nasal congestion, Denies post nasal drip, Denies sinus pain, Denies sinus pressure and Denies other ( Thrush) Card Denies chest pain, Denies pedal edema, Denies dyspnea, Denies orthopnea and Denies paroxysmal nocturnal dyspnea Resp Reports cough, Denies hemoptysis, Denies excessive phlegm production, Denies dyspnea, Denies snoring and Reports wheezing GI Denies abdominal pain and Denies heartburn Musc Denies myalgias, Denies arthralgias and Denies joint swelling Skin/Breast Denies rash Neuro Denies memory loss and Denies seizure-like activity Psych Denies abnormal sleep pattern, Denies anxiety and Denies memory loss Endo Denies excessive sweating, Denies fatigue and Denies heat intolerance Eric/Lymph Denies easy bruising Aller/Immun Denies itchy eyes, Denies seasonal rhinorrhea and Reports wheezing Physical Exam Vital Signs: Last Vital Signs Temp 97.6 F 04/23/25 13:19 Pulse 76 04/23/25 13:19 BP 102/58 L 04/23/25 13:19 Pulse Ox 98 04/23/25 13:19 Oxygen Delivery Method Room Air 04/23/25 13:19 BMI result Body Mass Index 26.6 Const General: no acute distress and alert Nutritional Appearance: not obese Orientation/consciousness: Other orientation findings ( oriented) HEENT Head: Yes atraumatic Eyes General: appearance normal, both eyes and all related structures Sclerae: sclerae normal EOM: EOMs intact bilaterally Neck Neck: Yes supple Lymphatic: no lymphadenopathy noted Resp Effort & Inspection: normal respiratory effort and no use of accessory muscles Auscultation: wheezes (Expiratory bilateral) Cardio Rate: regular rate Rhythm: regular rhythm Heart sounds: no gallops, no murmurs and no rubs Skin General skin exam: other ( warm) Extrem General: No clubbing, No cyanosis and No edema Assessment & Plan Assessment & Plan (1) Asthma: Code(s): J45.909 - Unspecified asthma, uncomplicated Category: Medical Plan: Baseline controlled on Symbicort, nebulized budesonide, duo nebs, and albuterol MDI. Continue current regimen. Will treat bronchitic exacerbation with a course of prednisone and azithromycin. (2) GERD (gastroesophageal reflux disease): Code(s): K21.9 - Gastro-esophageal reflux disease without esophagitis Category: Medical Qualifiers: Esophagitis presence: without esophagitis Qualified Code(s): K21.9 - Gastro-esophageal reflux disease without esophagitis Plan: Now well controlled on famotidine and Nexium. Continue current regimen. Medications: New prednisone 40 mg (2 x 20 mg) PO DAILY 10 tabs 0RF azithromycin For 250 mg dose pack: take 500 mg today (day 1), then 250 mg for 4 days (days 2-5) PO 6 tabs 0RF Coding Level of Care Code Est Pt Level 4 (40747) Diagnoses Asthma J45.909 Gastroesophageal reflux disease without esophagitis K21.9 Esophagitis presence: without esophagitis
--- OUTSIDE RECORDS SUMMARY | 2025-04-23 14:01 | XMS_ITS ---
Author Name Hannah Jain NP Address [address] [place] [address] Phone [phone] [facility] Care Team Providers Care Senior Php Software Developer Name Role Phone Hannah Jain Unavailable [phone] Unavailable Unavailable [phone] Unavailable Unavailable [phone] Reason for Referral Not Available Allergies, adverse reactions, alerts Allergen Type Reaction Severity Status Onset Date Oxycodone Allergy to substance (disorder) Hives Unknown Active N/A History of medication use Medication Class Instructions Start Date End Date Lisinopril 40 mg Tab take 1 tablet by mo iah daily 2022-02-10 No Data Available Eliquis 5 [...] treatment plan as directed. Unspecified atherosclerosis of [place] arteries of extremities, unspecified extremity Active 2022-08 [...] directed. Asthma Active 2022-08 N/A [facility] BreoFluticasoneAl[facility]erolF [facility] Continue current treatment plan as directed. [...] Active 2022-08 N/A On FurosemideMetoprololFollo ws a Surveyor Hydrographic, will monitor edema and weight. Continue current [...] with personal care Active 2024-01 N/A Receives wound care nurse hours Difficulty in walking, not elsewhere classified /Unsteady gait Active 2024-01 N/A walk with walker / 1 assist Other problems related to medical facilities and other health care Active 2023-12 N/A Monthly follow up calls with pt CONTINGENCY PLAN Why was the member in the hospital or ER most recently? Why are they most likely to go back? Please call [facility] if you have a change in [...] (do not use for phone, instead use 43111-98) [facility] [place] Hypertensive heart disease w ith heart failureHeart failure, unspecifiedSacroiliitis, not elsewhere classifiedOther thrombophiliaUnspecified atrial fibrillationUnspecified asthma, uncomplicatedInsomnia, unspecifiedHyperlipidemia, unspecifiedUnspecified dementia without behavioral disturbanceOther seasonal allergic rhinitisUnsp athscl [place] arteries of extremities, unsp extremityLumbago with sciatica, unspecified sideOther chronic painSecondary hyperaldosteronismChronic obstructive pulmonary disease, unspecified New patient,40-59min; chronic exacerbation, 2 stable chronic or 1 acute illness add add modifier 95 for video (do not use for phone, instead use 06824-06) [facility] New patient,40-59min; chronic exacerbation, 2 stable chronic or 1 acute illness add add modifier 95 for video (do not use for phone, instead use 48626-10) [facility] New patient,40-59min; chronic exacerbation, 2 stable chronic or 1 acute illness add add modifier 95 for video (do not use for phone, instead use 46181-57) [facility] New patient,40-59min; chronic exacerbation, 2 stable chronic or 1 acute illness add add modifier 95 for video (do not use for phone, instead use 55885-38) [facility] New patient,40-59min; chronic exacerbation, 2 stable chronic or 1 acute illness add add modifier 95 for video (do not use for phone, instead use 63879-57) [facility] New patient,40-59min; chronic exacerbation, 2 stable chronic or 1 acute illness add add modifier 95 for video (do not use for phone, instead use 39845-09) [facility] No Data Available [facility]2022 Heart failure, unspecifiedUnspecified asthma, uncomplicatedHyperlipidemia, unspecifiedChronic obstructive pulmonary disease, unspecifiedHypertensive heart disease with heart failure Estab. patient 30-39min; chronic exacerbation, 2 stable chronic or 1 acute illness add add modifier 95 for video, (do not use for phone, instead use 93045-40) [facility]2022 Heart failure, unspecifiedSacroiliitis, not elsewhere classifiedOther thrombophiliaUnspecified atrial fibrillationUnspecified asthma, uncomplicatedHyp hrt & chr kdny dis w hrt fail and stg 1-4/unsp chr kdnyInsomnia, unspecifiedHyperlipidemia, unspecifiedUnspecified dementia without behavioral disturbanceOther seasonal allergic rhinitisUnsp athscl [place] division arteries of extremities, unsp extremityLumbago with sciatica, unspecified sideOther chronic painSecondary hyperaldosteronismChronic obstructive pulmonary disease, unspecifiedGastro-esophageal reflux disease without esophagitisChronic kidney disease, stage 3aInterstitial pulmonary disease, unspecifiedUnspecified urinary incontinenceOther forms of acute ischemic heart disease Estab. patient 30-39min; chronic exacerbation, 2 stable chronic or 1 acute illness add add modifier 95 for video, (do not use for phone, instead use 83594-85) [facility] [place] Estab. patient 30-39min; chronic exacerbation, 2 stable chronic or 1 acute illness add add modifier 95 for video, (do not use for phone, instead use 29243-08) [facility] Estab. patient 30-39min; chronic exacerbation, 2 stable chronic or 1 acute illness add add modifier 95 for video, (do not use for phone, instead use 63356-47) [facility] [place] Estab. patient 30-39min; chronic exacerbation, 2 stable chronic or 1 acute illness add add modifier 95 for video, (do not use for phone, instead use 91815-07) [facility] Estab. patient 30-39min; chronic exacerbation, 2 stable chronic or 1 acute illness add add modifier 95 for video, (do not use for phone, instead use 69617-93) [facility] Estab. patient 30-39min; chronic exacerbation, 2 stable chronic or 1 acute illness add add modifier 95 for video, (do not use for phone, instead use 15670-33) [facility] No Data Available [facility] [place]2022 Chronic obstructive pulmonar y disease, unspecifiedHypertensive heart disease with heart failureHeart failure, unspecified No Data Available [facility]2023 Heart failure, unspecifiedSacroiliitis, not elsewhere classifiedOther thrombophiliaUnspecified atrial fibrillationUnspecified asthma, uncomplicatedHyp hrt & chr kdny dis w hrt fail and stg 1-4/unsp chr kdnyInsomnia, unspecifiedHyperlipidemia, unspecifiedUnspecified dementia without behavioral disturbanceOther seasonal allergic rhinitisUnsp athscl [place] arteries of extremities, unsp extremityLumbago with sciatica, unspecified sideOther chronic painSecondary hyperaldosteronismChronic obstructive pulmonary disease, unspecifiedGastro-esophageal reflux disease without esophagitisChronic kidney disease, stage 3aInterstitial pulmonary disease, unspecifiedUnspecified urinary incontinenceOther forms of acute ischemic heart disease No Data Available [facility] [facility] [facility] [facility] [facility] [facility] Hyp hrt & chr kdny dis w hrt fail and stg 1-4/unsp chr kdnyHeart failure, unspecifiedChronic kidney disease, stage 3aSecondary hyperaldosteronismSacroiliitis, not elsewhere classifiedOther thrombophiliaUnspecified atrial fibrillationUnspecified asthma, uncomplicatedInsomnia, unspecifiedHyperlipidemia, unspecifiedUnspecified dementia without behavioral disturbanceOther seasonal allergic rhinitisUnsp athscl [place] arteries of extremities, unsp extremityLumbago with sciatica, unspecified sideOther chronic painChronic obstructive pulmonary disease, unspecifiedGastro-esophageal reflux disease without esophagitisInterstitial pulmonary disease, unspecifiedUnspecified urinary incontinenceOther forms of acute ischemic heart disease No Data Available [facility]2023 No Data Available [facility] 02/[place] [facility]2023 No Data Available [facility]2023 No Data Available [facility] [place]2023 No Data Available [facility] 03[place]25/2023 Hyp hrt & chr kdny dis w hrt fail and stg 1-4/unsp chr kdnyChronic kidney disease, stage 3aHeart failure, unspecifiedSacroiliitis, not elsewhere classifiedOther thrombophiliaUnspecified atrial fibrillationUnspecified asthma, uncomplicatedInsomnia, unspecifiedHyperlipidemia, unspecifiedUnspecified dementia without behavioral disturbanceOther seasonal allergic rhinitisUnsp athscl [place] division arteries of extremities, bilateral legsLumbago with sciatica, unspecified sideOther chronic painSecondary hyperaldosteronismChronic obstructive pulmonary disease, unspecifiedGastro-esophageal reflux disease without esophagitisInterstitial pulmonary disease, unspecifiedUnspecified urinary incontinenceAcute ischemic heart disease, unspecified No Data Available [facility]20[place] No Data Available [facility]20[place] No Data Available [facility]2023 No Data Available [facility]2023 No Data Available [facility] 03[place]2023 No Data Available [facility]2023 Heart failure, unspecifiedSacroiliitis, not elsewhere classifiedOther thrombophiliaUnspecified atrial fibrillationUnspecified asthma, uncomplicated No Data Available [facility]2023 [place] Data Available [facility] Data Available [facility] Data [place] [facility] Data [place] [facility] Data [place] [facility] Data [place] [facility]2023 Heart failure, unspecifiedSacroiliitis, not elsewhere classifiedOther thrombophiliaUnspecified atrial fibrillationUnspecified asthma, uncomplicatedHyp hrt & chr kdny dis w hrt fail and stg 1-4/unsp chr kdnyInsomnia, unspecifiedHyperlipidemia, unspecifiedUnspecified dementia without behavioral disturbanceOther seasonal allergic rhinitisUnsp athscl [place] arteries of extremities, unsp extremityLumbago with sciatica, unspecified sideOther chronic painSecondary hyperaldosteronismChronic obstructive pulmonary disease, unspecifiedGastro-esophageal reflux disease without esophagitisChronic kidney disease, stage 3aInterstitial pulmonary disease, unspecifiedUnspecified urinary incontinenceOther forms of acute ischemic heart disease No Data Available [facility] [facility] [facility] [facility] [facility] [facility] Estab. patient 30-39min; chronic exacerbation, 2 stable chronic or 1 acute illness add add modifier 95 for video, (do not use for phone, instead use 11331-83) [facility] Heart failure, unspecifiedSacroiliitis, not elsewhere classifiedOther thrombophiliaUnspecified atrial fibrillationUnspecified asthma, uncomplicatedEssential (primary) hypertensionInsomnia, unspecifiedHyperlipidemia, unspecifiedUnspecified dementia without behavioral disturbanceOther seasonal allergic rhinitisUnsp athscl [place] division arteries of extremities, unsp extremityLumbago with sciatica, [...] (do not use for phone, instead use 09059-58) [facility] [place] Estab. patient 30-39min; chronic exacerbation, 2 stable chronic or 1 acute illness add add modifier 95 for video, (do not use for phone, instead use 81395-29) [facility] Estab. patient 30-39min; chronic exacerbation, 2 stable chronic or 1 acute illness add add modifier 95 for video, (do not use for phone, instead use 83523-26) [facility] Estab. patient 30-39min; chronic exacerbation, 2 stable chronic or 1 acute illness add add modifier 95 for video, (do not use for phone, instead use 19249-57) [facility] Estab. patient 30-39min; chronic exacerbation, 2 stable chronic or 1 acute illness add add modifier 95 for video, (do not use for phone, instead use 43122-57) [facility] Estab. patient 30-39min; chronic exacerbation, 2 stable chronic or 1 acute illness add add modifier 95 for video, (do not use for phone, instead use 68285-93) [facility] Estab. patient 30-39min; chronic exacerbation, 2 stable chronic or 1 acute illness add add modifier 95 for video, (do not use for phone, instead use 68515-88) [facility] Estab. patient 30-39min; chronic exacerbation, 2 stable chronic or 1 acute illness add add modifier 95 for video, (do not use for phone, instead use 54960-92) [facility] Estab. patient 30-39min; chronic exacerbation, 2 stable chronic or 1 acute illness add add modifier 95 for video, (do not use for phone, instead use 08192-07) [facility] [place] Vital Signs Date of [...] tive Time Current Smoking Status Never smoker 2025-04-04 1 Sex Female History of Procedures Procedures Service Procedure code Service date Servicing provider Phone# New patient,40-59min; chronic exacerbation, 2 stable chronic or 1 acute illness add add modifier 95 for video (do not use for phone, instead use 75327-62) [id number] 2022-08-07 No Data Available No Data Availa [...] le No Data Available No Data Available [id number] 2022-09-16 No Data Available No Data Available Estab. patient 30-39min; chronic exacerbation, 2 stable chronic or 1 acute illness add add modifier 95 for video, (do not use for phone, instead use 47934-71) [id number] 2022-10-22 No Data Available No Data Availa [...] No Data Miguelina ilable No Data Available [id number] 2022-12-09 No Data Available No Data Available No Data Available [id number] 2023-01-19 No Data Available No Data Available [...] No Data Availa ble No Data Available [id number] 2023-02-18 No Data Available No Data Available [...] Available No Data Available No Data Available [id number] 2023-03-25 No Data Available No Data Available [...] le No Data Available No Data Available [id number] 2023-05-11 No Data Available No Data Available [...] Available No Data Available No Data Available [id number] 2023-10-30 No Data Available No Data Available [...] (do not use for phone, instead use 11653-36) [id number] 2024-01-25 No Data Available No Data Availa [...] to atrial fibrillationAsthmaHypertensionInsomniaHyperlipidemiaDementiaSeasonal allergic rhinitisUnspecified atherosclerosis of [place] arteries of extremities, unspecified extremityChronic low back pain with sciaticaSecondary hyperaldosteronismChronic obstructive pulmonary disease, unspecified 2022-09-16 10:48:14 Heart failure, unspecified [I50.9]Asthma [J45.909]Hypertension [I10]Hyperlipidemia [E78.5]Chronic obstructive pulmonary disease, unspecified [J44.9] 2022-10-22 09:11:25 Heart failure, unspecifiedSacroiliitis, not elsewhere classifiedHypercoagulability due to atrial fibrillationAsthmaHypertensionInsomniaHyperlipidemiaDementiaSeasonal allergic rhinitisUnspecified atherosclerosis of [place] arteries of extremities, unspecified extremityChronic low back pain with sciaticaSecondary hyperaldosteronismChronic obstructive pulmonary disease, unspecifiedGERD (gastroesophageal reflux disease)Chronic kidney disease, stage 3aInterstitial pulmonary disease, unspecifiedBladder incontinenceOther forms of acute ischemic heart disease 2022-12-09 09:22:26 Chronic obstructive pulmonary disease, u nspecified [J44.9]Hypertension [I10]Heart failure, unspecified [I50.9] 2023-01-19 12:12:29 Heart failure, unspecifiedSacroiliitis, not elsewhere classifiedHypercoagulability due to atrial fibrillationAsthmaHypertensionInsomniaHyperlipidemiaDementiaSeasonal allergic rhinitisUnspecified atherosclerosis of [place] arteries of extremities, unspecified extremityChronic low back [...] ongoingSeasonal allergic rhinitis - ongoingUnspecified atherosclerosis of [place] arteries of extremities, unspecified extremity - ongoingChronic [...] ongoingSeasonal allergic rhinitis - ongoingUnspecified atherosclerosis of [place] arteries of extremities, unspecified extremity - ongoingChronic [...] to atrial fibrillationAsthmaHypertensionInsomniaHyperlipidemiaDementiaSeasonal allergic rhinitisUnspecified atherosclerosis of [place] arteries of extremities, unspecified extremityChronic low back [...] to atrial fibrillationAsthmaHypertensionInsomniaHyperlipidemiaDementiaSeasonal allergic rhinitisUnspecified atherosclerosis of [place] arteries of extremities, unspecified extremityChronic low back [...] education needs that may arise.On FurosemideMetoprololFollows a Surveyor Hydrographic, will monitor edema and weight.On TylenolOn EliquisOn [...] failure, unspe cified [I50.9]> On FurosemideMetoprololFollows a Surveyor Hydrographic, will monitor edema and weight.Asthma [J45.909]> On [...] education needs that may arise.On FurosemideMetoprololFollows a Surveyor Hydrographic, will monitor edema and weight.10/22/22: Continue current [...] 11/26.Heart failure, unspecified [I50.9]> On FurosemideMetoprololFollows a Surveyor Hydrographic, will monitor edema and weight.10/22/22: Continue current [...] needs that may arise 26/04.On FurosemideMetoprololFollows a Surveyor Hydrographic, will monitor edema and weight.10/22/22: Continue current treatment plan as directed. Continue current treatment plan as directed. F/u with Cardiology on 02/23.On TylenolContinue current treatment plan as directed.On EliquisFollows Cardiology Continue current treatment plan as directed.On BreoFluticasoneAlbuterolFollows Skid Worker Continue current treatment plan as directed.On [...] needs that may arise 26/04.On FurosemideMetoprololFollows a Surveyor Hydrographic, will monitor edema and weight.10/22/22: Continue current treatment plan as directed. Continue current treatment plan as directed. F/u with Cardiology on 02/23.On TylenolContinue current treatment plan as directed.On EliquisFollows Cardiology Continue current treatment plan as directed.On BreoFluticasoneAlbuterolFollows Skid Worker Continue current treatment plan as directed.On [...] needs that may arise 26/04.On FurosemideMetoprololFollows a Surveyor Hydrographic, will monitor edema and weight.10/22/22: Continue current treatment plan as directed. Continue current treatment plan as directed. F/u with Cardiology q 6 monthOn TylenolContinue current treatment plan as directed.On EliquisFollows Cardiology Continue current treatment plan as directed.On BreoFluticasoneAlbuterolFollows Skid Worker Continue current treatment plan as directed.On [...] needs that may arise 26/04.On FurosemideMetoprololFollows a Surveyor Hydrographic, will monitor edema and weight. Continue current [...] needs that may arise 26/04.On FurosemideMetoprololFollows a Surveyor Hydrographic, will monitor edema and weight. Continue current treatment plan as directed. F/u with Cardiology q 6 monthOn TylenolContinue current treatment plan as directed.On EliquisFollows Cardiology Continue current treatment plan as directed.On BreoFluticasoneAlbuterolFollows Skid Worker Continue current treatment plan as directed.On [...] Documented (1125F)Continue to see PCP. Follow-up with [facility] as needed for any acute or disease education needs that may arise.<Add contingency plans here>Monthly follow up calls with pt CONTINGENCY PLAN Why was the member in the hospital or ER most recently? Why are they most likely to go back? Please call [facility] if you have a change in condition, Blood pressure > 170/90 Fall, any unusual symptoms or have any medical questions!On FurosemideMetoprololFollows a Surveyor Hydrographic, will monitor edema and weight. Continue current treatment plan as directed. F/u with Cardiology q 6 monthOn TylenolContinue current treatment plan as directed.On EliquisFollows Cardiology Continue current treatment plan as directed.On BreoFluticasoneAlbuterolFollows Skid Worker Continue current treatment plan as directed.On [...] Follows PulmonologyNeeds Disposable bed padsOn MetoprololFollows CardiologyReceives wound care nurse hourswalk with walker / 1 assistSkin care [...] to the ER.4. Discussed how to contact [facility] via phone or tablet. 2023-02-18 1. Remember to keep all appointments with your PCP.2. Take all medication on time and try to eat healthy3. Call if you have questions or concerns before you go to the ER.4. Discussed how to contact [facility] via phone or tablet. 2023-03-25 1. Take all medicati on on time and try to eat healthy2. Call if you have questions or concerns before you go to the ER.3. Remember to keep all appointments with your PCP.4. Discussed how to contact [facility] via phone or tablet. Health Concerns [...] discussedDo you have a Durable Power of Proofer Apprentice for Healthcare, or Healthcare Proxy Or Guardianship? Yes, POAIf so, Who? john Henry is hcpDo you have a written Advance Directive? Has no formal documentationOther details of discussion: (Who was present, patients description of wishes/goals)Today's plan: Advised patient to discuss wishes with [id number] : AD or surrogate was documented in the medical record. 2024-01-25 Most recent hospital stay(s) or ER visit(s) and precipitating factors: Urgent care 01/20 due to respiratory symptoms 2024-01-25 Open HEDIS Measure jl miranda: Reviewed
--- OUTSIDE RECORDS SUMMARY | 2025-04-23 14:01 | XMS_ITS | Clinical Summary ---
Author Organization [employer] Address [address] [place] [address] Care Team Providers Care Software Quality Manager Name Role Phone Unavailable Primary Care Provider [...] PM EDT) Chol/HDLC Ratio 2.5 <5.0 (calc) [facility] Cholesterol, Total 142 <200 mg/dL [facility] HDL Cholesterol 56 > OR = 50 mg/dL [facility] LDL Cholesterol 73 mg/dL (calc) [facility] Comment: Reference range: <100 Desirable range <100 mg/dL for primary prevention; <70 mg/dL for patients with CHD or diabetic patients with > or = 2 CHD risk factors. LDL-C is now calculated using the Jamari-Rivers calculation, which is a validated novel method providing better accuracy than the Friedewald equation in the estimation of LDL-C. Jamari SS et al. ANIL. 2013;310(19): 4920-7906 (http://education.[employer].com/faq/QYA704) Non-HDL Cholesterol 86 <130 mg/dL (calc) [facility] Comment: For patients with diabetes plus 1 major ASCVD risk factor, treating to a non-HDL-C goal of <100 mg/dL (LDL-C of <70 mg/dL) is considered a therapeutic option. Triglycerides 51 <150 mg/dL [facility] 03/25/2021 1:25 PM EDT us Yeny Calderon MD LAB BLOOD ORDERABLES Fin al Result [facility] [address] from Last 3 Months or Most Recently Relevant to Health Maintenance Insurance [facility] DUAL COMPLETE # [address] [place] [id number]
--- OUTSIDE RECORDS SUMMARY | 2025-04-23 14:02 | XMS_ITS | Clinical Summary ---
Author Organization [facility] Address [address] [place] [address] Care Team Providers Care Ground Control Approach Technician Name Role Phone Unavailable Primary Care [...]
== END 2025-04-23 13:44 | disposition home or self-care (01) ==
LOC: HO.HPS 13:18
PROVIDERS: PCP Internal Medicine; Visit Provider Internal Medicine Pulmonary Disease
DX: J45.909 Unspecified asthma, uncomplicated (principal); K21.9 Gastro-esophageal reflux disease without esophagitis
CPT/HCPCS: 99214

== ENCOUNTER → 2025-04-23 13:17 | Outpatient (BNVA) | payer OTHER, SELFPAY | PROVIDERS: PCP Internal Medicine; Visit Provider Internal Medicine Pulmonary Disease | DX: K21.9 Gastro-esophageal reflux disease without esophagitis (principal); J45.909 Unspecified asthma, uncomplicated | CPT/HCPCS: 99212 ==

== ENCOUNTER 2025-05-21 12:01 | Outpatient (REF) | payer OTHER, SELFPAY ==
[2025-05-21 12:10] LABS: MANUAL DIFF FLAG NO
[2025-05-21 12:28] LABS: Hematocrit 39.2 % (37.0-47.0); Hemoglobin 13.0 g/dl (12.0-16.0); Imm Gran Abs Auto 0.01 X10*3/uL (0.00-0.03); Imm Gran Pct Auto 0.2 % (0.0-0.4); Lymphocytes Absolute Auto 1.0 X10*3/uL (1.2-4.9); Mean Corpuscular HGB Conc 33.2 g/dl (31.0-35.0); Mean Corpuscular Hemoglobin 29.3 pg (27.0-33.0); Mean Corpuscular Volume 88.5 fL (80.0-98.0); NRBC Abs Auto 0.000 X10*3/uL (0.0-0.012); NRBC Pct Auto 0.0 /100WBC (0.0-0.2); Platelet Count 230 X10*3/uL (160-400); Red Blood Count 4.43 X10*6/uL (4.20-5.50); White Blood Count 4.1 X10*3/uL (4.8-10.8)
--- OUTSIDE RECORDS SUMMARY | 2025-05-21 13:15 | XMS_ITS | Clinical Summary ---
Author Organization [facility] Address [address] [place] [address] Care Team Providers Care Board Turner Name Role Phone Unavailable Primary Care Provider [...]
--- OUTSIDE RECORDS SUMMARY | 2025-05-21 13:15 | XMS_ITS | Clinical Summary ---
Author Organization [employer] Address [address] [place] [address] Care Team Providers Care Locomotive Firer/Fireman Name Role Phone Unavailable Primary Care Provider [...] PM EDT) Chol/HDLC Ratio 2.5 <5.0 (calc) [facility] Cholesterol, Total 142 <200 mg/dL [facility] HDL Cholesterol 56 > OR = 50 mg/dL [facility] LDL Cholesterol 73 mg/dL (calc) [facility] Comment: Reference range: <100 Desirable range <100 mg/dL for primary prevention; <70 mg/dL for patients with CHD or diabetic patients with > or = 2 CHD risk factors. LDL-C is now calculated using the Jamari-Rivers calculation, which is a validated novel method providing better accuracy than the Friedewald equation in the estimation of LDL-C. Jamari SS et al. ANIL. 2013;310(19): 1642-7979 (http://education.[employer].com/faq/KZS765) Non-HDL Cholesterol 86 <130 mg/dL (calc) [facility] Comment: For patients with diabetes plus 1 major ASCVD risk factor, treating to a non-HDL-C goal of <100 mg/dL (LDL-C of <70 mg/dL) is considered a therapeutic option. Triglycerides 51 <150 mg/dL [facility] 03/25/2021 1:25 PM EDT us Yeny Calderon MD LAB BLOOD ORDERABLES Fin al Result [facility] [address] from Last 3 Months or Most Recently Relevant to Health Maintenance Insurance [facility] DUAL COMPLETE # [address] [place] [phone]
[2025-05-21 13:33] LABS: INTERNATIONAL NORM RATIO 1.0 (0.9-1.1); Prothrombin Time 11.4 SEC (10.9-12.4)
[2025-05-21 13:53] LABS: Anion Gap 11 (12-20); Blood Urea Nitrogen 10 mg/dL (9-16); Calcium 9.4 mg/dL (8.4-10.2); Carbon Dioxide 30 mmol/L (22-29); Chloride 104 mmol/L (96-108); Estimated Glomerular Filt Rate > 60; Potassium 3.8 mmol/L (3.3-5.1); Sodium 141 mmol/L (135-145)
== END 2025-05-21 12:02 | disposition home or self-care (01) ==
LOC: HO.LAB 12:01
PROVIDERS: PCP Internal Medicine; Visit Provider Student in an Organized Health Care Education/Training Program
DX: Z01.818 Encounter for other preprocedural examination (principal); I48.0 Paroxysmal atrial fibrillation
CPT/HCPCS: 36415; 80048; 85025; 85610

== ENCOUNTER 2025-07-11 13:02 | Outpatient (AMB) | payer OTHER, SELFPAY ==
--- NOTE | 2025-07-11 13:40 | A.OFFVIS_ITS ---
Intake Visit Reasons: [facility] Seed Cutter Required: Yes Seed Cutter Name: #[id number] Allergies oxycodone (From Percocet) Allergy (Intermediate, Verified 07/11/25 13:50) Agitated morphine Adverse Reaction (Verified 07/11/25 13:50) Agitated Medication List - Last Reconciled 07/11/25 by Aneta Pike CNP amlodipine 5 mg PO DAILY apixaban (Eliquis) 5 mg PO BID atorvastatin 40 mg PO BEDTIME azithromycin For 250 mg dose pack: take 500 mg today (day 1), then 250 mg for 4 days (days 2-5) PO budesonide 0.5 mg (2 mL) inhalation BID budesonide-formoterol 160-4.5 mcg/actuation (Symbicort) 1 inh inhalation BID calcium carbonate-vitamin D3 500 mg-10 mcg (400 unit) (Calcium 500 With D) 1 tab PO BID 90 days compress.stocking,knee,reg,med As directed famotidine 40 mg PO BEDTIME Grab bar As directed [handheld showerhead As directed] [incontinence pads As directed] ipratropium-albuterol 0.5 mg-3 mg(2.5 mg base)/3 mL 3 mL inhalation DAILY 30 days lansoprazole 30 mg PO DAILY lisinopril 40 mg PO DAILY meclizine 25 mg PO BID PRN memantine 10 mg PO BID metoprolol succinate ER 50 mg PO BID ondansetron HCl 4 mg PO Q8H PRN prednisone 40 mg (2 x 20 mg) PO DAILY Shower Chair As directed [toilet frame As directed] underpads (Bed Underpads) As directed walker (Ultra-Light Rollator misc) As directed HPI Comments Details: She was seen at [facility] in 12/2024 for fatigue, anxiety, and nausea that was determined to be side effect of donepezil and medication was stopped. Memory was about the same, forgetful at times. She lost her phone over the weekend and this was causing some stress. Sleep was not so good. She was living alone. She was driving locally without issue, has not gotten lost. She was still having some dizziness, meclizine as needed helped some. No falls. No episodes of passing out. Memory issues began around 11/2020 with short-term memory problems. She has gotten locked out of her house and left the stove on. She has 5th grade educa tion. 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 Episodes of non-positional vertigo in the past. Episodes of passing out in the past. Had stroke 08/10/2022 in ID, no details available. Hx of atrial fibrillation with one episode of tachycardia to 220. [facility] Medical History (Updated 07/11/25 @ 14:05 by Aneta Pike CNP) Syncope Colitis Schatzki's ring Depression Hypersomnia Snoring Cognitive impairment History of CVA (cerebrovascular accident) Afib Acute CVA (cerebrovascular accident) IBS (irritable bowel syndrome) Abdominal hyperesthesia Dyspepsia Osteoarthritis of lumbar spine Scoliosis GERD (gastroesophageal reflux disease) HTN (hypertension) Surgical History Status post ablation of incompetent vein using laser (06/12/22) Hx of hysterectomy H/O oophorectomy H/O bilateral breast reduction surgery Family History Son HTN (hypertension) Father No problems noted. Mother No problems noted. Social History Household Members: Other Household Members Other:: Grandson [facility] Are you a primary director of healthcare systems to a significant other at home: No Do you presently have visiting nurse or other home services: No Alcohol intake: never Patient Tobacco Use Status: Never used Tobacco e-Cigarette/Vaping Use: Never Used Second Hand Smoke Exposure: No Advance Directives Date on File: 08/13/21 service: No Current occupational status: disabled Cognitive needs: No Hearing needs: No Vision needs: Yes (Glasses) Review of Systems Const Denies chills, Denies daytime sleepiness, Reports difficulty sleeping, Denies fatigue, Denies fever(s), Denies frequent falls, Denies headache(s), Denies increased appetite, Denies poor appetite, Denies snoring, Denies weakness, Denies weight gain and Denies weight loss Eyes Denies loss of vision ENT Denies vertigo, Denies dizziness, Denies headache(s) and Denies neck pain Card Denies chest pain at rest, Denies chest pain with activity, Denies syncope, Denies leg edema, Denies palpitations, Denies dyspnea and Denies dyspnea on exertion Resp Denies cough, Denies dyspnea, Denies dyspnea on exertion and Denies snoring GI Denies abdominal pain, Denies constipation, Denies heartburn, Denies diarrhea and Denies nausea Denies urinary frequency, Denies urinary incontinence and Denies urinary urgency Musc Denies abnormal gait, Reports back pain, Denies myalgias, Denies arthralgias, Denies neck pain, Denies numbness and Denies tingling Neuro Denies abnormal gait, Denies vertigo, Denies dizziness, Denies syncope, Denies frequent falls, Denies headache(s), Denies lack of coordination, Denies loss of vision, Reports memory loss, Denies numbness, Denies Other visual disturbances, Denies restless legs, Denies seizure-like activity, Denies tingling, Denies paresthesias, Denies tremor(s) and Denies weakness Psych Denies anxiety, Denies depression, Denies auditory hallucinations, Reports memory loss and Denies visual hallucinations Endo Denies fatigue and Denies palpitations Physical Exam Const Other: General Appearance:? normal, in no acute distress. Heart:? S1, S2 normal, no murmurs. Lungs:? clear anteriorly and posteriorly. Musculoskeletal:? normal. Extremities:? no edema. Psych:? alert, as below. Neuro Other: Abnormal Neurological Findings:?MMSE 23/30. Mental Status: alert, as below. Cranial Nerves: Pupils are equal, round, and reactive to light. External ocular muscles are intact. Visual portillo are full, no ptosis. Face is symmetrical, no facial weakness or droop. Facial sensations are normal. Tongue protrudes in midline. Palate elevates symmetrically. Shoulder shrugging is normal Motor Examination: Normal muscle tone, bulk and strength. No atrophy or fasciculations. No drift of the extended upper extremities. DTR 2+. Plantars are flexor. Sensory Exam: Normal light touch, temperature, pinprick, vibration, and joint- position sensations. Rhomberg sign is absent. Coordination: No ataxia. No titubation. Gait Exam: Within normal limits. Cerebellar Signs: Dzultj-lu-dore is okay. Extrapyramidal System: No tremor, rigidity with normal facial expressions. No bradykinesia. No bradyphrenia. Normal arm swing and posture. No propulsion or retropulsion. Speech: Normal. MMSE Level of Consciousness: Alert. Orientation: Knows correct year, month, date, day and season. Knows correct city, county and state. Knows correct location and floor. Registration: Able to register 3 objects. Attention: Unable to do serial 7's. Recall: Able to recall 1 out of 3 objects. Language: Normal spontaneous speech, fluency, repetition, naming, comprehension, reading, and writing. Total Score: 23/30. Results Reviewed Results Reviewed: 01/27/22 CTA: There are chronic microvascular ischemic changes and there is a chronic infarct in the right cerebellar hemisphere. There is diffuse volume loss. CTA of the intracranial vasculature does not demonstrate evidence of focal stenosis, aneurysm or vascular malformation. 04/01/22 EEG- Borderline with occasional bifrontal surges. back ground 9 HZ 11/20/22 MRI brain: There are no acute bleeds or territorial infarcts. No masses are demonstrated. There are chronic microvascular ischemic changes and there is diffuse volume loss. There are chronic infarcts in the right jose j and right cerebellar hemisphere. 05/2023 CT Brain: No acute intracranial process seen. Age-related cerebral volume loss with chronic small vessel ischemic changes. 05/2024 CT brain: Proportional prominence of the ventricles and sulcal spaces related to volume loss. Patchy periventricular and deep white matter hypoattenuation is consistent with moderate small vessel ischemic changes. No acute intracranial abnormality including hemorrhage, mass effect, hydrocephalus, or acute territorial edematous infarction. Assessment & Plan Assessment & Plan (1) MCI (mild cognitive impairment): Code(s): G31.84 - Mild cognitive impairment of uncertain or unknown etiology Category: Medical Plan: She had side effects with donepezil and was not taking medication, medication was discontinued. Continue memantine 10mg 1 tablet twice a day. Stay physically and socially active. (2) Vertigo: Code(s): R42 - Dizziness and giddiness Category: Medical Plan: Continue meclizine 25mg 1 tablet as needed twice a day for dizziness. Plan Meds tried: donepezil (side effects) Medications: New meclizine 25 mg PO BID PRN 60 tabs 5RF dizziness 30 days Coding Level of Care Code Est Pt Level 4 (53174) Diagnoses MCI (mild cognitive impairment) G31.84 Vertigo R42
== END 2025-07-11 14:08 | disposition home or self-care (01) ==
LOC: HO.HSM 13:03
PROVIDERS: PCP Internal Medicine; Visit Provider Registered Nurse
DX: G31.84 Mild cognitive impairment of uncertain or unknown etiology (principal); R42 Dizziness and giddiness
CPT/HCPCS: 99214

== ENCOUNTER → 2025-07-11 13:02 | Outpatient (BNVA) | payer OTHER, SELFPAY | PROVIDERS: PCP Internal Medicine; Visit Provider Registered Nurse | DX: R42 Dizziness and giddiness (principal); G31.84 Mild cognitive impairment of uncertain or unknown etiology | CPT/HCPCS: 99212 ==

== ENCOUNTER 2025-08-06 12:34 | Outpatient (REF) | payer OTHER, SELFPAY ==
[2025-08-06 12:48] LABS: MANUAL DIFF FLAG NO
[2025-08-06 13:33] LABS: Hematocrit 41.4 % (37.0-47.0); Hemoglobin 13.3 g/dl (12.0-16.0); Imm Gran Abs Auto 0.01 X10*3/uL (0.00-0.03); Imm Gran Pct Auto 0.2 % (0.0-0.4); Lymphocytes Absolute Auto 1.2 X10*3/uL (1.2-4.9); Mean Corpuscular HGB Conc 32.1 g/dl (31.0-35.0); Mean Corpuscular Hemoglobin 29.1 pg (27.0-33.0); Mean Corpuscular Volume 90.6 fL (80.0-98.0); NRBC Abs Auto 0.000 X10*3/uL (0.0-0.012); NRBC Pct Auto 0.0 /100WBC (0.0-0.2); Platelet Count 223 X10*3/uL (160-400); Red Blood Count 4.57 X10*6/uL (4.20-5.50); White Blood Count 4.8 X10*3/uL (4.8-10.8)
[2025-08-06 13:53] LABS: Alanine Aminotransferase 26 U/L (0-31); Albumin Level 4.3 g/dL (3.5-5.0); Alkaline Phosphatase 76 U/L (39-117); Anion Gap 11 (12-20); Aspartate Amino Transferase 33 U/L (5-31); Blood Urea Nitrogen 18 mg/dL (9-16); Calcium 9.1 mg/dL (8.4-10.2); Carbon Dioxide 28 mmol/L (22-29); Chloride 106 mmol/L (96-108); Cholesterol 176 mg/dL (<200); Estimated Glomerular Filt Rate > 60; HDL Cholesterol 51 mg/dL (>40); Potassium 3.7 mmol/L (3.3-5.1); Sodium 141 mmol/L (135-145); Total Protein 7.4 g/dL (6.5-8.0); Triglycerides 49 mg/dL (<150)
== END 2025-08-06 12:35 | disposition home or self-care (01) ==
LOC: HO.LAB 12:34
PROVIDERS: PCP Internal Medicine
DX: I48.0 Paroxysmal atrial fibrillation (principal); I21.4 Non-ST elevation (NSTEMI) myocardial infarction; K21.9 Gastro-esophageal reflux disease without esophagitis; K52.9 Noninfective gastroenteritis and colitis, unspecified; E55.9 Vitamin D deficiency, unspecified; E78.5 Hyperlipidemia, unspecified; I10 Essential (primary) hypertension; R74.01 Elevation of levels of liver transaminase levels
CPT/HCPCS: 36415; 80053; 80061; 82306; 85025

== ENCOUNTER 2025-08-14 08:42 | Outpatient (AMB) | payer OTHER, SELFPAY ==
--- OUTSIDE RECORDS SUMMARY | 2025-08-14 08:53 | XMS_ITS | Clinical Summary ---
Author Organization [employer] Address [address] [facility] [facility] [address] [place] [address] Care Team Providers Care Rubber And Pounder Name Role Phone Unavailable Primary Care Provider [...] 75+ series) 2022 COVID-19 Vaccine ( - 2024- season) 2025 12/22/2022, 10/02/2021, 12/25/2020 Influenza Vaccine (#1) 2025 [...] LDL-C. Jamari SS et al. ANIL. 2013;310(19): 9434-9543 (http://education.[employer] [employer] [facility].com/faq/KNE837) Non-HDL Cholesterol 86 <130 mg/dL (calc) [facility] Comment: For patients with diabetes plus 1 major ASCVD risk factor, treating to a non-HDL-C goal of <100 mg/dL (LDL-C of <70 mg/dL) is considered a therapeutic option. Triglycerides 51 <150 mg/dL [facility] 03/25/2021 1:25 PM EDT us Yeny Calderon MD LAB BLOOD ORDERABLES Fin al Result [facility] [address] from Last 3 Months or Most Recently Relevant to Health Maintenance Insurance [facility] DUAL COMPLETE # [address] [place] [phone]
--- OUTSIDE RECORDS SUMMARY | 2025-08-14 08:54 | XMS_ITS | Clinical Summary ---
Author Organization [facility] Address [address] [place] [address] Care Team Providers Care Flap Maker Name Role Phone Unavailable Primary Care Provider [...]
[2025-08-14 08:56] VITALS: BP 120/62; PULSE 74; BMI 26.6
--- NOTE | 2025-08-14 08:56 | A.OFFVIS_ITS ---
Vital Signs 08/14/25 08:56 Height 5 ft 4 in Weight 155 lb 3.287 oz BMI 26.6 BP 120/62 Blood Pressure Location Lt brachial Position Sitting Pulse 74 Pulse Source Pulse Oximeter Intake Visit Reasons: 4 mth f/up Commercial Instructor Supervisor Required: Yes Commercial Instructor Supervisor Language: Gas Leak Inspector Helper Name: taylor [id number] Allergies oxycodone (From Percocet) Allergy (Intermediate, Verified 08/14/25 09:03) Agitated morphine Adverse Reaction (Verified 08/14/25 09:03) Agitated Medication List - Last Reconciled 08/14/25 by Katina Morales NP-C amlodipine 5 mg PO DAILY apixaban (Eliquis) 5 mg PO BID atorvastatin 40 mg PO BEDTIME azithromycin For 250 mg dose pack: take 500 mg today (day 1), then 250 mg for 4 days (days 2-5) PO budesonide 0.5 mg (2 mL) inhalation BID budesonide-formoterol 160-4.5 mcg/actuation (Symbicort) 1 inh inhalation BID calcium carbonate-vitamin D3 500 mg-10 mcg (400 unit) (Calcium 500 With D) 1 tab PO BID 90 days compress.stocking,knee,reg,med As directed famotidine 40 mg PO BEDTIME Grab bar As directed [handheld showerhead As directed] [incontinence pads As directed] ipratropium-albuterol 0.5 mg-3 mg(2.5 mg base)/3 mL 3 mL inhalation DAILY 30 days lansoprazole 30 mg PO DAILY lisinopril 40 mg PO DAILY meclizine 25 mg PO BID PRN 30 days memantine 10 mg PO BID metoprolol succinate ER 50 mg PO BID ondansetron HCl 4 mg PO Q8H PRN prednisone 40 mg (2 x 20 mg) PO DAILY Shower Chair As directed [toilet frame As directed] underpads (Bed Underpads) As directed walker (Ultra-Light Rollator misc) As directed HPI HPI 4 mth f/up: Details: Becca is a 79-year-old female with past medical history of hypertension, CVA, paroxysmal atrial fibrillation, CAD, SVT requiring adenosine who recently underwent an AFib and SVT ablation on 08/09/2025 and now presents for follow-up. Today she reports that she has had soreness at her groin sites since her procedure. The areas are gradually improving. She has not had any issues with heart palpitations in the last few days. She has been doing only light activities. She has no chest discomfort, shortness of breath, lightheadedness, presyncope, syncope, PND, orthopnea or edema. Family member present. 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 [facility] Medical History Syncope Colitis Schatzki's ring Depression Hypersomnia Snoring Cognitive impairment History of CVA (cerebrovascular accident) Afib Acute CVA (cerebrovascular accident) IBS (irritable bowel syndrome) Abdominal hyperesthesia Dyspepsia Osteoarthritis of lumbar spine Scoliosis GERD (gastroesophageal reflux disease) HTN (hypertension) Surgical History Status post ablation of incompetent vein using laser (06/12/22) Hx of hysterectomy H/O oophorectomy H/O bilateral breast reduction surgery Family History Son HTN (hypertension) Father No problems noted. Mother No problems noted. Social History Household Members: Other Household Members Other:: Grandson [facility] Are you a primary manager of care to a significant other at home: No Do you presently have visiting nurse or other home services: No Alcohol intake: never Patient Tobacco Use Status: Never used Tobacco e-Cigarette/Vaping Use: Never Used Second Hand Smoke Exposure: No Advance Directives Date on File: 08/13/21 service: No Current occupational status: disabled Cognitive needs: No Hearing needs: No Vision needs: Yes (Glasses) Review of Systems Const All systems reviewed & are unremarkable except as noted in HPI and below ENT Denies dizziness Card Denies chest pain, Denies chest pain at rest, Denies chest pain with activity, Denies rapid heart rate, Denies pedal edema, Denies edema, Denies leg edema, Denies lightheadedness, Denies palpitations, Denies dyspnea, Denies dyspnea on exertion and Denies orthopnea Resp Denies cough, Denies dyspnea and Denies dyspnea on exertion GI Denies hematochezia and Denies change in stool character Musc Details: soreness at groin sites Denies abnormal gait, Denies limited range of motion, Denies muscle cramps, Denies muscle weakness, Denies numbness, Denies radiating pain into limb, Denies stiffness and Denies tingling Neuro Denies abnormal gait, Denies dizziness, Denies numbness and Denies tingling Endo Denies palpitations Physical Exam Vital Signs: Last Vital Signs Pulse 74 08/14/25 08:56 BP 120/62 08/14/25 08:56 BMI result Body Mass Index 26.6 Const General: cooperative, healthy appearing, comfortable and no acute distress Orientation/consciousness: patient oriented x3 Neck Neck: Yes normal visual inspection Resp Effort & Inspection: normal respiratory effort Auscultation: clear to auscultation bilaterally, no rales, no rhonchi and no wheezes Cardio Rate: regular rate Rhythm: regular rhythm Heart sounds: S1 normal heart sound present, S2 normal heart sound present, no gallops, no murmurs and no rubs GI Inspection: Yes normal to inspection Neuro General: patient oriented x3 Extrem Other: bilateral groin sites assessed - resolving ecchimosis, access sites intact, no evidence of infection, palpable femoral pulses General: Yes normal to inspection, No no pedal edema and No calf tenderness Psych Appearance: grossly normal Mental Status: mental status grossly normal Speech and movement: Normal speech and movement present Assessment & Plan Assessment & Plan (1) SVT (supraventricular tachycardia): Code(s): I47.10 - Supraventricular tachycardia, unspecified Category: Medical Plan: [facility] admission 12/2024 with palpitations and found to have SVT requiring adenosine. He has a history PAF and had been on metoprolol. Echocardiogram 12/21/2024 showed EF 60-65%, normal RV size and function. She was evaluated by EP and underwent a pulmonary vein isolation, posterior wall roof and floor isolation for AFib and left atrial tach ablation on 08/09/2025. She has upcoming visit for follow-up with the EP. She has not been having heart palpitations since then. Clinically in sinus rhythm on exam today. Continue metoprolol. (2) PAF (paroxysmal atrial fibrillation): Code(s): I48.0 - Paroxysmal atrial fibrillation Category: Medical Plan: History of paroxysmal atrial fibrillation that is treated with rhythm control. She is on metoprolol for heart rate control. She is on Eliquis for anticoagulation. Ablation procedure as above. (3) CAD (coronary artery disease): Code(s): I25.10 - Atherosclerotic heart disease of [place] coronary artery without angina pectoris Category: Medical Plan: Notes indicate history of CAD with prior [place], distal LAD disease. She has no reports of anginal sounding symptoms. She does not need aspirin as she is on Eliquis. Continue atorvastatin with ideal LDL goal less than 70. Continue metoprolol. Labs done 08/06/2025 showed LDL 116. Suspect this is nonfasting as labs drawn 1247. Will have her increase atorvastatin to 40 mg daily. Plan recheck of fasting lipids prior to next visit. (4) Essential hypertension: Code(s): I10 - Essential (primary) hypertension Category: Medical Plan: Blood pressure goal less than 130/80. Well controlled at present. Continue amlodipine, lisinopril and metoprolol. (5) H/O: CVA (cerebrovascular accident): Code(s): Z86.73 - Personal history of transient ischemic attack (TIA), and cerebral infarction without residual deficits Category: Medical Plan: History of CVA. Brain MRI from 08/13/2021 shows a small acute infarct in the right cerebral hemisphere, chronic lacunar infarct within the right jose j. History of AFib, on anticoagulation. Plan Time spent on chart review. document, inteview, assessment Orders: Orders Lipid Panel 2 Months I25.10 - Atherosclerotic heart disease of [place] coronary artery without angina pectoris Liver Panel 2 Months I25.10 - Atherosclerotic heart disease of [place] coronary artery without angina pectoris Medications: New atorvastatin (Lipitor) 80 mg PO BEDTIME 90 tabs 1RF Discontinued atorvastatin Discontinued Reason: Doctor's Order 40 mg PO BEDTIME 90 tabs 3RF Coding Level of Care Code Est Pt Level 4 (83606) Complex EM visit Add On G2211 Diagnoses SVT (supraventricular tachycardia) I47.10 PAF (paroxysmal atrial fibrillation) I48.0 CAD (coronary artery disease) I25.10 Essential hypertension I10 H/O: CVA (cerebrovascular accident) Z86.73 Time Spent (min) 30
== END 2025-08-14 09:25 | disposition home or self-care (01) ==
LOC: HO.HCS 08:43
PROVIDERS: PCP Internal Medicine; Visit Provider Nurse Practitioner Family
DX: I47.10 Supraventricular tachycardia, unspecified (principal); I48.0 Paroxysmal atrial fibrillation; I25.10 Atherosclerotic heart disease of native coronary artery without angina pectoris; I10 Essential (primary) hypertension; Z86.73 Personal history of transient ischemic attack (TIA), and cerebral infarction without residual deficits
CPT/HCPCS: 99214; G2211

== ENCOUNTER → 2025-08-14 08:42 | Outpatient (BNVA) | payer OTHER, SELFPAY | PROVIDERS: PCP Internal Medicine; Visit Provider Nurse Practitioner Family | DX: I48.0 Paroxysmal atrial fibrillation (principal); I47.10 Supraventricular tachycardia, unspecified; I25.10 Atherosclerotic heart disease of native coronary artery without angina pectoris; I10 Essential (primary) hypertension; Z86.73 Personal history of transient ischemic attack (TIA), and cerebral infarction without residual deficits | CPT/HCPCS: 99212 ==